=== PATIENT | female | born 1935 | race Caucasian/White ===

== ENCOUNTER 2017-11-25 23:22 | Inpatient (IN) | payer MEDICARE, OTHER ==
--- NOTE | 2017-11-25 23:53 | RADIOLOGY REPORT (SQ) ---
XR CHEST 1 VIEW HISTORY: Shortness of breath. COMPARISON: 08/12/2016 FINDINGS/IMPRESSION: Prominent right hilum is unchanged. Sequela of emphysema with hyperlucent lungs. Atelectasis at lung bases. No focal consolidation. No large pleural effusions. No acute osseous findings.
[2017-11-26 00:02] LABS: VENOUS BLOOD BASE EXCESS -0.1 mmol/L; VENOUS BLOOD HCO3 25.9 mmol/L (20-32); VENOUS BLOOD PCO2 47.8 mmHg (35-63); VENOUS BLOOD PH 7.35 (7.30-7.42)
[2017-11-26 00:06] LABS: ABSOLUTE EOSINOPHILS # (AUTO) 0.1 10^3/uL (0.0-0.6); ABSOLUTE LYMPHOCYTES (AUTO) 0.9 10^3/uL (0.5-4.7); ABSOLUTE MONOCYTES (AUTO) 0.4 10^3/uL (0.1-1.4); ABSOLUTE NEUT (AUTO) 4.6 10^3/uL (1.7-8.2); BASOPHILS % (AUTO) 0.6 % (0-2); EOSINOPHILS % (AUTO) 1.9 % (0-6); HEMATOCRIT 36.6 % (36.0-47.0); HEMOGLOBIN 12.1 g/dL (12.0-15.5); LYMPHOCYTES % (AUTO) 15.2 % (13-45); MEAN CORPUSCULAR HEMOGLOBIN 29.6 pg (27.0-33.4); MEAN CORPUSCULAR VOLUME 90 fl (80-97); MONOCYTES % (AUTO) 6.3 % (3-13); PLATELET COUNT 231 10^3/uL (150-450); RED BLOOD COUNT 4.08 10^6/uL (3.72-5.28); RED CELL DISTRIBUTION WIDTH 14.1 % (11.5-14.0); TOTAL CELLS COUNTED % (AUTO) 100 %; WHITE BLOOD COUNT 6.1 10^3/uL (4.0-10.5)
[2017-11-26] MEDS ORDERED: IPRATROPIUM/ALBUTEROL 0.5-2.5 MG/3 ML AMPUL NEB ONE (00:14)
[2017-11-26] MEDS ORDERED: METHYLPREDNISOLONE INJ 125 MG/2 ML SDV IV ONE (00:14)
--- NOTE | 2017-11-26 00:15 | ER Document Report ---
ED General - General Chief Complaint: Shortness Of Breath Stated Complaint: SHORTNESS OF BREATH Time Seen by Provider: 11/25/17 23:34 Notes: Patient is an 82-year-old female with a past medical history of hypertension, hyperlipidemia, COPD, remote history of lung cancer status post partial pneumonectomy on the right without recurrence of disease or need for chemotherapy who presents with an episode of shortness of breath and diaphoresis that occurred just prior to arrival. At approximately 10 PM the patient became acutely very short of breath, family noted that she appeared to have labored breathing and was visibly diaphoretic. EMS was contacted and the patient was transported to the emergency department. Upon arrival the patient states that she overall feels better but notes that she did not receive any interventions on the EMS transport. She denies a history of similar symptoms in the past. She is uncertain of what improved her symptoms. Nothing worsens her symptoms when present. She denies any associated chest pain, nausea or vomiting. She has not contacted her general doctor regarding today's concerns. TRAVEL OUTSIDE OF THE [place] IN LAST 30 DAYS: No - Related Data Allergies/Adverse Reactions: promethazine HCl [From Phenergan] Allergy (Verified 08/19/14 22:44) Past Medical History - General Information source: Patient, Relative - Social History Smoking Status: Never Smoker Frequency of alcohol use: None Drug Abuse: None Lives with: Family Family History: Reviewed & Not Pertinent, Hypertension - Past Medical History Cardiac Medical History: Reports: Hx Coronary Artery Disease, Hx Hypercholesterolemia, Hx Hypertension Denies: Hx Heart Attack Pulmonary Medical History: Reports: Hx COPD Denies: Hx Asthma, Hx Bronchitis, Hx Pneumonia Neurological Medical History: Denies: Hx Cerebrovascular Accident, Hx Seizures Malignancy Medical History: Reports: Hx Breast Cancer, Hx Lung Cancer GI Medical History: Reports: Hx Hiatal Hernia, Hx Ulcer Musculoskeletal Medical History: Denies Hx Arthritis Psychiatric Medical History: Denies: Hx Depression Past Surgical History: Reports: Hx Abdominal Surgery, Hx Breast Surgery - Left mastectomy for breast cancer, Hx Cardiac Catheterization, Hx Cardiac Surgery - stent 2006, Hx Section, Hx Coronary Stent, Hx Gynecologic Surgery - c- section, Hx Hysterectomy, Hx Mastectomy - Left - Immunizations Hx Diphtheria, Pertussis, Tetanus Vaccination: Yes Review of Systems - Review of Systems Notes: Constitutional: Negative for fever. HENT: Negative for sore throat. Eyes: Negative for visual changes. Cardiovascular: Negative for chest pain. Respiratory: Positive for shortness of breath. Gastrointestinal: Negative for abdominal pain, vomiting or diarrhea. Genitourinary: Negative for dysuria. Musculoskeletal: Negative for back pain. Skin: Negative for rash. Neurological: Negative for headaches, weakness or numbness. 10 point ROS negative except as marked above and in HPI. Physical Exam - Vital signs Vitals: Pulse Ox 91 L 11/25/17 23:26 Interpretation: Hypertensive, Hypoxic Notes: PHYSICAL EXAMINATION: GENERAL: Mild labored breathing but in no distress HEAD: Atraumatic, normocephalic. EYES: Pupils equal round and reactive to light, extraocular movements intact, sclera anicteric, conjunctiva are normal. ENT: nares patent, oropharynx clear without exudates. Moist mucous membranes. NECK: Normal range of motion, supple without lymphadenopathy LUNGS: Mild tachypnea. Breath sounds clear to auscultation bilaterally and equal. No wheezes rales or rhonchi. HEART: Regular rate and rhythm without murmurs ABDOMEN: Soft, nontender, normoactive bowel sounds. No guarding, no rebound. No masses appreciated. EXTREMITIES: Normal range of motion, trace edema present in the right distal lower extremity, no edema in the left. No cyanosis. NEUROLOGICAL: No focal neurological deficits. Moves all extremities spontaneously and on command. PSYCH: Normal mood, normal affect. SKIN: Warm, Dry, normal turgor, no rashes or lesions noted. Course - Re-evaluation Re-evalutation: 11/26/17 00:14 Patient presents with acute onset of shortness of breath, diaphoresis, remains somewhat tachypneic with borderline hypoxemia at 92%. The patient does not have any prominent wheezing on exam although was noted to have a history of emphysema and has emphysematous changes on chest x-ray. No evidence of a pneumonia and clinical history is not consistent with that. IA should not be causing persistent tachypnea or borderline hypoxemia. EKG without ischemic changes although does show bigeminy. Patient has a remote history of lung cancer with partial pneumonectomy on the right lung. My primary concern is for an acute pulmonary embolus. My index of suspicion is high enough that I believe a CTA is required. Will proceed directly with CTA. If this is unremarkable will continue to treat as a possible COPD exacerbation and also obtain a delta troponin to ensure that this is not a cardiac etiology. 11/26/17 01:29 CT of the chest does not show any evidence of an acute pulmonary embolus or concerns of underlying lung disease. Patient has received Solu-Medrol, nebs, states she overall at this time feels well. She is however saturating at 91-92 % on room air. Given her indeterminate range troponin she will require hospitalization for troponin trending and stress testing. 11/26/17 01:[address] Almaguer who is excepted the patient for admission. - Vital Signs Vital signs: Temp Pulse Resp BP Pulse Ox 26 H 204/99 H 93 11/26/17 00:01 11/26/17 00:01 11/26/17 00:01 - Laboratory Result Diagrams: 11/25/17 23:50 11/25/17 23:50 Laboratory results interpreted by me: 11/25/17 11/25/17 11/25/17 23:50 23:50 23:50 RDW 14.1 H Chloride 108 H Creatinine 1.41 H Est GFR ( Amer) 43 L Est GFR (Non-Af Amer) 36 L Glucose 113 H NT-Pro-B Natriuret Pep 39587 H - Diagnostic Test Radiology reviewed: Reports reviewed Discharge - Discharge Clinical Impression: Shortness of breath, Elevated troponin Condition: Fair Disposition: ADMITTED OBSERVATION Admitting Provider: Hospitalist Unit Admitted: Telemetry
[2017-11-26 00:17] LABS: ALANINE AMINOTRANSFERASE 29 U/L (9-52); ALBUMIN 3.9 g/dL (3.5-5.0); ALKALINE PHOSPHATASE 110 U/L (38-126); ANION GAP 11 (5-19); ASPARTATE AMINO TRANSFERASE 28 U/L (14-36); BILIRUBIN,DIRECT 0.2 mg/dL (0.0-0.4); BILIRUBIN,TOTAL 0.2 mg/dL (0.2-1.3); BLOOD UREA NITROGEN 20 mg/dL (7-20); CALCIUM 9.2 mg/dL (8.4-10.2); CARBON DIOXIDE 25 mmol/L (22-30); CHLORIDE 108 mmol/L (98-107); GLUCOSE 113 mg/dL (75-110); POTASSIUM 4.2 mmol/L (3.6-5.0); SODIUM 143.5 mmol/L (137-145); TOTAL PROTEIN 6.6 g/dL (6.3-8.2)
--- NOTE | 2017-11-26 01:26 | RADIOLOGY REPORT (SQ) ---
CT CHEST ANGIOGRAPHY WITHOUT THEN WITH IV CONTRAST HISTORY: Shortness of breath. Evaluate for pulmonary was not. COMPARISON: None. TECHNIQUE: CT scan of the chest. This exam was performed according to our departmental dose-optimization program, which includes automated exposure control, adjustment of the mA and/or kV according to patient size and/or use of iterative reconstruction technique. 3-D MIP images were obtained in coronal and sagittal reconstructions. FINDINGS: No acute pulmonary embolism is seen. No evidence of right heart strain. Enlarged right thyroid lobe containing a 3.2 cm nodule. No mediastinal, hilar, or axillary adenopathy is seen. There is no thoracic aortic dissection or aneurysm. No pericardial effusion. Trace bilateral pleural effusions with adjacent atelectasis. Scattered areas of centrilobular emphysema. The osseous structures are intact. Large hiatal hernia. Multiple bilateral renal cysts are partially visualized. IMPRESSION: 1. No acute pulmonary embolism. 2. Trace bilateral pleural effusions. 3. Centrilobular emphysema. 4. Large hiatal hernia. 5. 3.2 cm incidental thyroid nodule Recommend thyroid US. Reference: J Am Allyn Radiol. 2015 b;12(2): 143-50
[2017-11-26] MEDS ORDERED: MAG HYDROX/AL HYDROX/SIMETH SUSP 30 ML UDCUP PO PRN (01:35)
[2017-11-26] MEDS ORDERED: NITROGLYCERIN 5 MG (0.2 MG/HR) PATCH.TD24 TD ONE (02:00)
[2017-11-26] MEDS ORDERED: FUROSEMIDE INJ/PF 40 MG/4 ML SDV IV ONE (02:00)
[2017-11-26] MEDS ORDERED: LISINOPRIL 10 MG TABLET PO ONE (02:00)
[2017-11-26] MEDS: HYDRALAZINE HCL INJ/PF 20 MG/1 ML SDV IV PRN ×2 (02:46→15:44)
[2017-11-26] MEDS: HEPARIN SOD (PORCINE) 5,000 UNIT/ML 1 ML SYRINGE SUBCUT SCH ×3 (05:35→22:29)
--- NOTE | 2017-11-26 06:40 | PDOC H&P ---
History of Present Illness Admission Date/PCP: 11/26/17 01:47 GUY WONG MD Patient complains of: Shortness of breath History of Present Illness: BERNABE DORMAN is a 82 year old female with a past medical history of hypertension, dyslipidemia, COPD and a remote history of lung cancer status post partial right pneumonectomy. Presents with shortness of breath and a blood pressure of 218/100, CT of the chest, cardiac enzymes are unremarkable but BNP is almost 13,000. She receives Solu-Medrol, albuterol and Atrovent and referred to the hospitalist for admission. Patient admits orthopnea and dyspnea on exertion, denies heat or cold intolerance, chest pain, recent change of diet nor missing medications but admits to chronic poorly controlled blood pressure. Past Medical History Cardiac Medical History: Reports: Congestive Heart Failure, Coronary Artery Disease, Hyperlipidema, Hypertension Denies: Myocardial Infarction Pulmonary Medical History: Reports: Chronic Obstructive Pulmonary Disease (COPD) Denies: Asthma, Bronchitis, Pneumonia Neurological Medical History: Denies: Seizures Malignancy Medical History: Reports: Breast Cancer, Lung Cancer GI Medical History: Reports: Hiatal Hernia Musculoskeltal Medical History: Denies: Arthritis Psychiatric Medical History: Denies: Depression Hematology: Reports: Anemia Past Surgical History Past Surgical History: Reports: Cardiac Catheterization, Section, Coronary Stent, Hysterectomy, Mastectomy - Left Social History Information Source: Patient Lives with: Family Smoking Status: Unknown if Ever Smoked Frequency of Alcohol Use: None Hx Recreational Drug Use: No Drugs: None Hx Prescription Drug Abuse: No - Advance Directive Resuscitation Status: Full Code Family History Family History: Reviewed & Not Pertinent, Hypertension Parental Family History Reviewed: Yes Children Family History Reviewed: Yes Sibling(s) Family History Reviewed.: Yes Medication/Allergy Home Medications: Acetaminophen with Codeine [Tylenol #3 Tablet] 1 each PO BID 08/20/14 Acidoph/L.bulg/Bif.b/S.thermop [Bacid Caplet] 2 each PO BID 60 Days tablet Ciprofloxacin HCl [Cipro 500 mg Tablet] 500 mg PO BID #20 tablet 08/20/14 Ferrous Sulfate [Iron] 325 mg PO DAILY 08/20/14 Isosorbide Mononitrate [Imdur 60 mg Tablet.er] 60 mg PO DAILY 08/20/14 Lisinopril 40 mg PO BID 08/20/14 Metoprolol Succinate [Toprol Xl] 50 mg PO QHS 08/20/14 Pantoprazole Sodium [Protonix] 40 mg PO DAILY 08/20/14 Potassium Gluconate 500 mg PO DAILY 08/20/14 Ranitidine HCl [Zantac] 300 mg PO QHS 08/20/14 Simvastatin [Zocor 40 mg Tablet] 40 mg PO QHS 08/20/14 Temazepam [Restoril] 30 mg PO QHS 08/20/14 Allergies/Adverse Reactions: promethazine HCl [From Phenergan] Allergy (Verified 08/19/14 22:44) Review of Systems Constitutional: PRESENT: as per HPI. ABSENT: fever(s), headache(s), night sweats, weakness Eyes: ABSENT: visual disturbances Ears: ABSENT: hearing changes Cardiovascular: PRESENT: as per HPI, dyspnea on exertion, orthropnea. ABSENT: chest pain, edema Physical Exam Vital Signs: Temp Pulse Resp BP Pulse Ox 97.6 F 80 20 182/81 H 92 11/26/17 03:49 11/26/17 03:49 11/26/17 03:49 11/26/17 03:49 11/26/17 03:49 Intake & Output 11/24/17 11/25/17 11/26/17 11:59 11:59 11:59 Weight 73.5 kg General appearance: PRESENT: cooperative, severe distress. ABSENT: morbidly obese Head exam: PRESENT: atraumatic, normocephalic Eye exam: PRESENT: conjunctiva pink, EOMI, PERRLA. ABSENT: scleral icterus Ear exam: PRESENT: normal external ear exam Mouth exam: PRESENT: moist, tongue midline Neck exam: ABSENT: carotid bruit, JVD, lymphadenopathy, thyromegaly Respiratory exam: PRESENT: accessory muscle use, crackles, prolonged expiratory phas, tachypnea, wheezes Cardiovascular exam: PRESENT: gallop, +S1, +S2, systolic murmur Pulses: PRESENT: normal dorsalis pedis pul Vascular exam: PRESENT: normal capillary refill GI/Abdominal exam: PRESENT: normal bowel sounds, soft. ABSENT: distended, guarding, mass, organolmegaly, rebound, tenderness Rectal exam: PRESENT: deferred Extremities exam: PRESENT: full ROM. ABSENT: calf tenderness, clubbing, pedal edema Neurological exam: PRESENT: alert, awake, oriented to person, oriented to place , oriented to time, oriented to situation, CN II-XII grossly intact. ABSENT: motor sensory deficit Psychiatric exam: PRESENT: appropriate affect, normal mood. ABSENT: homicidal ideation, suicidal ideation Skin exam: PRESENT: dry, intact, warm. ABSENT: cyanosis, rash Results Impressions: Chest X-Ray 11/25/17 23:35 FINDINGS/IMPRESSION: Prominent right hilum is unchanged. Sequela of emphysema with hyperlucent lungs. Atelectasis at lung bases. No focal consolidation. No large pleural effusions. No acute osseous findings. Chest/Abdomen CTA 11/26/17 00:14 IMPRESSION: 1. No acute pulmonary embolism. 2. Trace bilateral pleural effusions. 3. Centrilobular emphysema. 4. Large hiatal hernia. 5. 3.2 cm incidental thyroid nodule Recommend thyroid US. Reference: J Am Allyn Radiol. 2015 Apr;12(2): 143-50 Assessment & Plan - Diagnosis (1) Hypertensive emergency Is this a current diagnosis for this admission?: Yes Plan: IV diuretic, nitroglycerin, MIKE inhibitor, hydralazine as needed (2) Diastolic heart failure Is this a current diagnosis for this admission?: Yes Plan: Strongly suggested by presentation, unclear chronicity, obtain recent echocardiogram from [facility] at [place]. Control hypertension, gentle diuresis, supplemental oxygen (3) Shortness of breath Is this a current diagnosis for this admission?: Yes Plan: Secondary to #1. - Time Time Spent: 50 to 70 Minutes - Inpatient Certification Medical Necessity: Need Close Monitoring Due to Risk of Patient Decompensation
[2017-11-26 07:20] LABS: TROPONIN I 0.068 ng/mL
[2017-11-26 07:24] LABS: FREE T3 4.42 pg/mL (2.77-5.27); FREE T4 (FREE THYROXINE) 1.14 ng/dL (0.78-2.19)
[2017-11-26 07:33] LABS: CREATINE KINASE MB 0.8 ng/mL (<4.55)
[2017-11-26 07:38] LABS: THYROID STIMULATING HORMONE 1.5 uIU/mL (0.47-4.68)
[2017-11-26 07:50] LABS: ANION GAP 15 (5-19); BLOOD UREA NITROGEN 19 mg/dL (7-20); CALCIUM 9.3 mg/dL (8.4-10.2); CARBON DIOXIDE 22 mmol/L (22-30); CHLORIDE 106 mmol/L (98-107); CREATINE KINASE 25 U/L (30-135); GLUCOSE 136 mg/dL (75-110); POTASSIUM 3.8 mmol/L (3.6-5.0); SODIUM 143.3 mmol/L (137-145)
--- NOTE | 2017-11-26 08:08 | EKG REPORT ---
SEVERITY:- ABNORMAL ECG - SINUS RHYTHM VENTRICULAR BIGEMINY RIGHT BUNDLE BRANCH BLOCK LEFT VENTRICULAR HYPERTROPHY : Confirmed by: Scotty Augustin MD 26-Nov-2017 08:08:11
[2017-11-26] MEDS: FUROSEMIDE INJ/PF 40 MG/4 ML SDV IV SCH (09:10)
[2017-11-26] MEDS: NITROGLYCERIN 5 MG (0.2 MG/HR) PATCH.TD24 TD SCH (09:11)
[2017-11-26] MEDS: ACETAMINOPHEN 325 MG TABLET PO PRN (09:11)
[2017-11-26] MEDS: LISINOPRIL 10 MG TABLET PO SCH ×2 (09:11→17:14)
--- NOTE | 2017-11-26 11:16 | Progress Note ---
Provider Note Provider Note: This is a 82-year-old female with history of poorly controlled hypertension presented with shortness of breath and found to have hypertensive urgency with CHF. Patient has been started on IV diuretics as well as IV hydralazine as needed. Will follow up 2D echocardiogram. Patient's home medication has been resumed. Patient reports significant improvement in shortness of breath. Her most recent blood pressure is 158/76 with heart rate of 77. Patient will be continued on telemetry.
[2017-11-26 12:28] LABS: CREATINE KINASE MB 0.88 ng/mL (<4.55); TROPONIN I 0.039 ng/mL
[2017-11-26] MEDS ORDERED: (PENDING PHARMACY ID) (Carbamazepine [Carbamazepine Er] 200 MG) PO SCH (14:00)
[2017-11-26] MEDS: CARBAMAZEPINE 200 MG TAB.SR.12H PO SCH ×2 (14:59→22:29)
[2017-11-26] MEDS: SUCRALFATE 1 GM TABLET PO SCH ×2 (15:03→21:51)
[2017-11-26] MEDS ORDERED: TRAMADOL HCL 50 MG TABLET PO ONE (18:00)
[2017-11-26 18:20] LABS: CREATINE KINASE MB 0.78 ng/mL (<4.55); TROPONIN I 0.032 ng/mL
[2017-11-26] MEDS ORDERED: TRAZODONE HCL 50 MG TABLET PO PRN (20:08)
[2017-11-26] MEDS ORDERED: METOPROLOL SUCCINATE 50 MG TAB.SR.24H PO SCH (22:00)
[2017-11-26] MEDS: SIMVASTATIN 40 MG TABLET PO SCH (22:29)
[2017-11-27] MEDS: ACETAMINOPHEN 325 MG TABLET PO PRN (03:53)
[2017-11-27] MEDS: HYDRALAZINE HCL INJ/PF 20 MG/1 ML SDV IV PRN (03:53)
[2017-11-27] MEDS: HEPARIN SOD (PORCINE) 5,000 UNIT/ML 1 ML SYRINGE SUBCUT SCH ×3 (06:32→21:43)
[2017-11-27] MEDS: LANSOPRAZOLE 30 MG TAB.RAP.DR PO SCH (06:33)
[2017-11-27] MEDS: CARBAMAZEPINE 200 MG TAB.SR.12H PO SCH ×3 (06:33→22:54)
[2017-11-27] MEDS: SUCRALFATE 1 GM TABLET PO SCH ×4 (07:33→21:42)
[2017-11-27] MEDS: FUROSEMIDE INJ/PF 40 MG/4 ML SDV IV SCH (09:27)
[2017-11-27] MEDS: NIFEDIPINE 30 MG TAB.ER.24 PO SCH (09:29)
[2017-11-27] MEDS: LISINOPRIL 10 MG TABLET PO SCH ×2 (09:29→17:03)
[2017-11-27] MEDS: NITROGLYCERIN 5 MG (0.2 MG/HR) PATCH.TD24 TD SCH (09:33)
[2017-11-27] MEDS ORDERED: HYDROCODONE/ACETAMINOPHEN 5-325 MG TABLET PO PRN (09:52)
[2017-11-27] MEDS ORDERED: (PENDING PHARMACY ID) (Nifedipine [Nifedipine Er] 90 MG) PO SCH (10:00)
--- NOTE | 2017-11-27 11:16 | PDOC PROGRESS REPORT ---
Subjective Progress Note for:: 11/27/17 Subjective:: The patient is complaining of a headache and nausea. She states that these have begun since she was started on Nitropatch. Reason For Visit: HTN EMERGENCY DIASTOLIC HEART FAILURE Physical Exam Vital Signs: Temp Pulse Resp BP Pulse Ox 98.1 F 82 17 128/85 H 95 11/27/17 07:34 11/27/17 07:34 11/27/17 07:34 11/27/17 07:34 11/27/17 07:34 Intake & Output 11/26/17 11/27/17 11/28/17 06:59 06:59 06:59 Intake Total 540 Output Total 900 Balance -360 Weight 73.5 kg 71.3 kg General appearance: PRESENT: no acute distress, cooperative Neck exam: PRESENT: other - 4/5 cardiac MARIANNA murmur radiates to carotids bilaterally.. ABSENT: carotid bruit, JVD, lymphadenopathy, tracheal deviation Respiratory exam: PRESENT: other - No increased work of breathing.. ABSENT: rales, rhonchi, wheezes Cardiovascular exam: PRESENT: systolic murmur - 4/5 blowing quality systolic murmur best heard at the left lsb wth radiation to carotics bila Pulses: PRESENT: normal femoral pulses, normal dorsalis pedis pul GI/Abdominal exam: PRESENT: soft. ABSENT: distended, guarding, hernia, mass, tenderness Rectal exam: PRESENT: deferred Extremities exam: ABSENT: clubbing, joint swelling, pedal edema, tenderness Musculoskeletal exam: PRESENT: dislocation. ABSENT: deformity, normal inspection Neurological exam: PRESENT: alert, awake, oriented to person, oriented to place , oriented to time, oriented to situation, CN II-XII grossly intact. ABSENT: motor sensory deficit Psychiatric exam: PRESENT: appropriate affect, normal mood Focused psych exam: PRESENT: delusional Skin exam: PRESENT: dry, intact, warm Results Laboratory Results: 11/26/17 05:36 11/26/17 11/26/17 11/26/17 05:36 05:36 11:47 Creatine Kinase 25 L 24 L CK-MB (CK-2) 0.80 Troponin I 0.068 11/26/17 11/26/17 11/26/17 11:47 16:45 16:45 Creatine Kinase 45 CK-MB (CK-2) 0.88 0.78 Troponin I 0.039 0.032 Impressions: Chest X-Ray 11/25/17 23:35 FINDINGS/IMPRESSION: Prominent right hilum is unchanged. Sequela of emphysema with hyperlucent lungs. Atelectasis at lung bases. No focal consolidation. No large pleural effusions. No acute osseous findings. Chest/Abdomen CTA 11/26/17 00:14 IMPRESSION: 1. No acute pulmonary embolism. 2. Trace bilateral pleural effusions. 3. Centrilobular emphysema. 4. Large hiatal hernia. 5. 3.2 cm incidental thyroid nodule Recommend thyroid US. Reference: J Am Allyn Radiol. 2015 Apr;12(2): 143-50 Assessment & Plan - Diagnosis (1) Elevated troponin Is this a current diagnosis for this admission?: Yes Plan: Due to elevated creatinine and blood pressure. Cardiology consulted. (2) Hypertensive emergency Is this a current diagnosis for this admission?: Yes Plan: With pulmonary edema and chest pain. (3) Shortness of breath Is this a current diagnosis for this admission?: Yes (4) CAD (coronary artery disease) Qualifiers: Coronary Disease-Associated Artery/Lesion type: [place] artery [place] vs. transplanted heart: [place] heart Associated angina: with unstable angina Qualified Code(s): I25.110 - Atherosclerotic heart disease of [place] coronary artery with unstable angina pectoris Is this a current diagnosis for this admission?: Yes (5) COPD (chronic obstructive pulmonary disease) Qualifiers: COPD type: unspecified COPD Qualified Code(s): J44.9 - Chronic obstructive pulmonary disease, unspecified Is this a current diagnosis for this admission?: Yes (6) HTN (hypertension) Qualifiers: Hypertension type: essential hypertension Qualified Code(s): I10 - Essential (primary) hypertension Is this a current diagnosis for this admission?: Yes Plan: Uncontrolled with headache and pulmonary edema and respiratory distress. (7) Headache Qualifiers: Headache type: other drug induced headache Is this a current diagnosis for this admission?: Yes Plan: stop nitropaste. Change to Imdur. Ice and pain control. (8) Congestive heart failure Qualifiers: Heart failure type: unspecified Heart failure chronicity: acute Qualified Code(s): I50.9 - Heart failure, unspecified Is this a current diagnosis for this admission?: Yes Plan: Will check echocardiogram. Cardiology consulted. (9) MEHDI (acute kidney injury) Is this a current diagnosis for this admission?: Yes Plan: Due to elevated blood pressure. (10) Heart murmur, aortic Is this a current diagnosis for this admission?: Yes Plan: with radiation to carotids bilaterally. Echocardiogram ordered. - Time Time Spent with patient: 35 or more minutes Medications reviewed and adjusted accordingly: Yes
[2017-11-27] MEDS: ISOSORBIDE MONONITRATE 30 MG TAB.ER.24H PO SCH (11:18)
--- NOTE | 2017-11-27 19:56 | PDOC CONSULTATION ---
Consultation Consult Date: 11/27/17 Attending physician:: DONOVAN GOMEZ Consult reason:: Labile hypertension History of Present Illness Admission Date/PCP: 11/26/17 01:47 GUY WONG MD Patient complains of: Shortness of breath History of Present Illness: BERNABE DORMAN is a 82 year old female with a past medical history of hypertension, dyslipidemia, COPD and a remote history of lung cancer status post partial right pneumonectomy. Presents with shortness of breath and a blood pressure of 218/100, CT of the chest, cardiac enzymes are unremarkable but BNP is almost 13,000. She receives Solu-Medrol, albuterol and Atrovent and referred to the hospitalist for admission. Patient admits orthopnea and dyspnea on exertion, denies heat or cold intolerance, chest pain, recent change of diet nor missing medications but admits to chronic poorly controlled blood pressure. Patient claims that a few months ago she was evaluated by her environmental research scientist Dr. Sewell at [facility] and was told to have no significant heart issues and did not give her a follow-up. She was admitted with shortness of breath and was noted to have extremely elevated blood pressure. Past Medical History Cardiac Medical History: Reports: Congestive Heart Failure, Coronary Artery Disease, Hyperlipidema, Hypertension Denies: Myocardial Infarction Pulmonary Medical History: Reports: Chronic Obstructive Pulmonary Disease (COPD) Denies: Asthma, Bronchitis, Pneumonia Neurological Medical History: Denies: Seizures Malignancy Medical History: Reports: Breast Cancer, Lung Cancer GI Medical History: Reports: Hiatal Hernia Musculoskeltal Medical History: Denies: Arthritis Psychiatric Medical History: Denies: Depression Hematology: Reports: Anemia Past Surgical History Past Surgical History: Reports: Cardiac Catheterization, Section, Coronary Stent, Hysterectomy, Mastectomy - Left Social History Information Source: Patient Lives with: Family Smoking Status: Unknown if Ever Smoked Frequency of Alcohol Use: None Hx Recreational Drug Use: No Drugs: None Hx Prescription Drug Abuse: No - Advance Directive Resuscitation Status: Full Code Family History Family History: Hypertension Parental Family History Reviewed: Yes Children Family History Reviewed: Yes Sibling(s) Family History Reviewed.: Yes Medication/Allergy Home Medications: Carbamazepine [Carbamazepine ER] 200 mg PO QAM 11/26/17 Carbamazepine [Carbamazepine ER] 400 mg PO QPM 11/26/17 Cyanocobalamin (Vitamin B-12) [Vitamin B-12 1000 mcg Tablet] 1,000 mcg PO DAILY 11/26/17 Donepezil HCl [Aricept 5 mg Tablet] 5 mg PO DAILY 11/26/17 Lisinopril [Prinivil 40 mg Tablet] 40 mg PO Q12 11/26/17 Metoprolol Succinate [Toprol Xl 50 mg Tab.sr] 50 mg PO QHS 11/26/17 Nifedipine [Nifedipine ER] 90 mg PO DAILY 11/26/17 Pantoprazole Sodium [Protonix] 40 mg PO DAILY 11/26/17 Primidone [Mysoline 50 mg Tablet] 50 mg PO BID@0800,1200 11/26/17 Primidone [Mysoline 50 mg Tablet] 100 mg PO QPM 11/26/17 Ranitidine HCl [Zantac] 300 mg PO QHS 11/26/17 Simvastatin [Zocor 40 mg Tablet] 40 mg PO QHS 11/26/17 Sucralfate [Carafate 1 gm Tablet] 1 gm PO MEALSHS 11/26/17 Allergies/Adverse Reactions: promethazine HCl [From Phenergan] Allergy (Verified 08/19/14 22:44) Review of Systems Review of Systems: Please see history of present illness and past medical history as wall. Constitutional: No fever or chills reported. Head : No recent chronic headaches, recent head injury. Eyes: No recent eye pain, diplopia, redness, discharge, acute visual changes. Ears: No recent chronic ear pain, acute hearing loss, ear discharge. Oral cavity: No recent ulcerations, bleeding, oral cavity discomfort. Neck: No recent acute neck pain reported. Hematologic: No recent easy bruising or bleeding. Lymphatic: No recent lymph node enlargement reported. Cardiovascular system review: See history of present illness. Respiratory system review: No hemoptysis or blood clots in the lungs reported. Mild Shortness of breath on exertion Gastrointestinal system review: Negative for any recent acute hematemesis, melena. Genitourinary system review: No recent acute or chronic hematuria, flank pain, UTI etc. reported. Skin system review: Negative for any recent abnormal bruising, no rash, no pruritus reported. Neurologic: No prior history of strokes, mini strokes, seizure disorder. Psychologic: No history of major psychosis or major depression reported. Musculoskeletal: Minor aches and pains reported. No acute joint swelling reported. Endocrine: No recent polyuria, polydipsia, recent heat or cold intolerance. Physical Exam Vital Signs: Temp Pulse Resp BP Pulse Ox 98.9 F 79 16 161/69 H 97 11/27/17 15:29 11/27/17 15:29 11/27/17 15:29 11/27/17 15:29 11/27/17 15:29 Intake & Output 11/26/17 11/27/17 11/28/17 06:59 06:59 06:59 Intake Total 540 500 Output Total 900 900 Balance -360 -400 Weight 73.5 kg 71.3 kg Exam: GENERAL: well-nourished and in no acute distress. Alert and oriented x3 HEAD: Atraumatic, normocephalic. EYES: Pupils equal round and reactive to light, extraocular movements intact, sclera anicteric, conjunctiva are normal. ENT: TMs normal, nares patent, oropharynx clear without exudates. Moist mucous membranes. No oral ulcerations or bleeding gums noted NECK: supple without lymphadenopathy. Trachea is central. No cervical or axillary lymphadenopathy noted. Carotids are 2+, JVD 8-10 cm LUNGS: Respiration seems nonlabored, no significant accessory muscle action noted. Bibasilar fine crackles are noted. No wheezes rales or rhonchi noted. No significant dullness noted on percussion. CHEST: Palpation of the chest wall shows no significant chest wall tenderness. HEART: [place] EDUCATION RN, No PSH, 1/6 MARIANNA aortic area, 3/6 bal[place] systolic murmur mitral area, no rubs, no gallops. ABDOMEN: Soft, no significant tenderness appreciated, normoactive bowel sounds. No guarding, no rebound. No rigidity noted . No masses appreciated. EXTREMITIES: Pedal pulses are 1-2+, no calf tenderness noted. No clubbing or cyanosis. negative pedal edema noted NEUROLOGICAL: Focused neurological exam showed no significant neurologic deficit. Normal speech, no focal weakness appreciated. PSYCH: Normal mood, normal affect. Judgment and insight within normal limits. SKIN: No significant ecchymosis, skin is noted to be warm. MUSCULOSKELETAL EXAM: No significant acute joint swelling noted. Results Laboratory Results: 11/26/17 05:36 11/26/17 11/26/17 11/26/17 05:36 05:36 11:47 Creatine Kinase 25 L 24 L CK-MB (CK-2) 0.80 Troponin I 0.068 11/26/17 11/26/17 11/26/17 11:47 16:45 16:45 Creatine Kinase 45 CK-MB (CK-2) 0.88 0.78 Troponin I 0.039 0.032 EKG Comments: Sinus rhythm with frequent PVCs and possible LVH. Impressions: Chest X-Ray 11/25/17 23:35 FINDINGS/IMPRESSION: Prominent right hilum is unchanged. Sequela of emphysema with hyperlucent lungs. Atelectasis at lung bases. No focal consolidation. No large pleural effusions. No acute osseous findings. Chest/Abdomen CTA 11/26/17 00:14 IMPRESSION: 1. No acute pulmonary embolism. 2. Trace bilateral pleural effusions. 3. Centrilobular emphysema. 4. Large hiatal hernia. 5. 3.2 cm incidental thyroid nodule Recommend thyroid US. Reference: J Am Allyn Radiol. 2014;12(2): 143-50 Assessment & Plan - Diagnosis (1) Congestive heart failure Qualifiers: Heart failure type: unspecified Heart failure chronicity: acute Qualified Code(s): I50.9 - Heart failure, unspecified Is this a current diagnosis for this admission?: Yes (2) Hypertensive emergency Is this a current diagnosis for this admission?: Yes (3) CAD (coronary artery disease) Qualifiers: Coronary Disease-Associated Artery/Lesion type: [place] artery [place] vs. transplanted heart: [place] heart Associated angina: with unstable angina Qualified Code(s): I25.110 - Atherosclerotic heart disease of [place] coronary artery with unstable angina pectoris Is this a current diagnosis for this admission?: Yes (4) COPD (chronic obstructive pulmonary disease) Qualifiers: COPD type: unspecified COPD Qualified Code(s): J44.9 - Chronic obstructive pulmonary disease, unspecified Is this a current diagnosis for this admission?: Yes (5) HTN (hypertension) Qualifiers: Hypertension type: essential hypertension Qualified Code(s): I10 - Essential (primary) hypertension Is this a current diagnosis for this admission?: Yes (6) Hyperlipidemia Qualifiers: Hyperlipidemia type: unspecified Qualified Code(s): E78.5 - Hyperlipidemia , unspecified Is this a current diagnosis for this admission?: Yes (7) Valvular heart disease Is this a current diagnosis for this admission?: Yes (8) Elevated troponin Is this a current diagnosis for this admission?: Yes - Notes Notes: Congestive heart failure: Possibly related to diastolic dysfunction, combined systolic and diastolic dysfunction, valvular heart disease etc. patient also may have severe hypertension precipitating this. At this time agree with diuretic therapy. A 2D echo has been ordered. Further adjustment of therapy will be made on the basis of 2D echocardiogram. Hypertensive emergency: Patient claims history of labile blood pressure. Will consider evaluating her for renal artery stenosis. CAD: Patient gives history of CAD. Will schedule patient for a nuclear stress test especially since her troponin I are also noted to be abnormal. This amount of troponin I elevation could well be from CHF. COPD: Currently stable continue current management plans. Hypertension: This has been difficult to control. Will try control blood pressure during this hospitalization. Valvular heart disease: Patient felt to have possibly significant mitral regurgitation. Further evaluation by 2D echocardiogram, 2D echocardiogram is pending. Elevated troponin I: Possibly related to severe hypertension, CHF. Patient however also being scheduled for a nuclear stress test. - Time Time Spent: 30 to 50 Minutes - More than 50% of the time spent coordinating care , discussing management plans with involved caregivers. Management plans discussed with involved personnels. Medical decision making was of moderate to high complexity, patient's has multiple comorbidities. Medications reviewed and adjusted accordingly: Yes
[2017-11-27] MEDS: SIMVASTATIN 40 MG TABLET PO SCH (22:55)
[2017-11-27] MEDS: METOPROLOL SUCCINATE 50 MG TAB.SR.24H PO SCH (22:56)
[2017-11-28] MEDS: CARBAMAZEPINE 200 MG TAB.SR.12H PO SCH ×3 (05:37→17:23)
[2017-11-28] MEDS: LANSOPRAZOLE 30 MG TAB.RAP.DR PO SCH (05:37)
[2017-11-28] MEDS: HEPARIN SOD (PORCINE) 5,000 UNIT/ML 1 ML SYRINGE SUBCUT SCH ×3 (05:41→21:13)
[2017-11-28 06:33] LABS: ABSOLUTE EOSINOPHILS # (AUTO) 0.2 10^3/uL (0.0-0.6); ABSOLUTE LYMPHOCYTES (AUTO) 1.3 10^3/uL (0.5-4.7); ABSOLUTE MONOCYTES (AUTO) 0.6 10^3/uL (0.1-1.4); ABSOLUTE NEUT (AUTO) 3.6 10^3/uL (1.7-8.2); BASOPHILS % (AUTO) 0.4 % (0-2); EOSINOPHILS % (AUTO) 3.3 % (0-6); HEMATOCRIT 35.4 % (36.0-47.0); HEMOGLOBIN 11.8 g/dL (12.0-15.5); LYMPHOCYTES % (AUTO) 22.5 % (13-45); MEAN CORPUSCULAR HEMOGLOBIN 29.4 pg (27.0-33.4); MEAN CORPUSCULAR HGB CONC 33.3 g/dL (32.0-36.0); MEAN CORPUSCULAR VOLUME 88 fl (80-97); MONOCYTES % (AUTO) 9.7 % (3-13); PLATELET COUNT 241 10^3/uL (150-450); RED CELL DISTRIBUTION WIDTH 13.8 % (11.5-14.0); SEGMENTED NEUTROPHILS % (AUTO) 64.1 % (42-78); TOTAL CELLS COUNTED % (AUTO) 100 %; WHITE BLOOD COUNT 5.7 10^3/uL (4.0-10.5)
[2017-11-28 06:45] LABS: ALANINE AMINOTRANSFERASE 24 U/L (9-52); ALBUMIN 3.6 g/dL (3.5-5.0); ALKALINE PHOSPHATASE 98 U/L (38-126); ANION GAP 9 (5-19); ASPARTATE AMINO TRANSFERASE 17 U/L (14-36); BILIRUBIN,DIRECT 0.3 mg/dL (0.0-0.4); BILIRUBIN,TOTAL 0.4 mg/dL (0.2-1.3); BLOOD UREA NITROGEN 19 mg/dL (7-20); CALCIUM 9.4 mg/dL (8.4-10.2); CARBON DIOXIDE 29 mmol/L (22-30); CHLORIDE 102 mmol/L (98-107); GLUCOSE 99 mg/dL (75-110); POTASSIUM 4.4 mmol/L (3.6-5.0); SODIUM 139.5 mmol/L (137-145); TOTAL PROTEIN 6.1 g/dL (6.3-8.2)
[2017-11-28] MEDS: SUCRALFATE 1 GM TABLET PO SCH ×4 (08:00→21:15)
[2017-11-28] MEDS: ISOSORBIDE MONONITRATE 30 MG TAB.ER.24H PO SCH (11:02)
[2017-11-28] MEDS: LISINOPRIL 10 MG TABLET PO SCH ×3 (11:02→21:16)
[2017-11-28] MEDS: NIFEDIPINE 30 MG TAB.ER.24 PO SCH (11:02)
[2017-11-28] MEDS: FUROSEMIDE INJ/PF 40 MG/4 ML SDV IV SCH (11:03)
--- NOTE | 2017-11-28 13:13 | DRAGON STRESS TEST REPORT ---
INTRAVENOUS LEXISCAN CARDIOLITE STRESS TEST USING SINGLE PHOTON EMMISION COMPUTERIZED TOMOGRAPHIC. DATE OF PROCEDURE: November 28, 2017, INDICATION : Shortness of breath CARDIAC RISK FACTORS: Hypertension, dyslipidemia RESTING EKG: Sinus rhythm, right bundle branch block pattern, possible LVH with some secondary ST-T wave changes both due to LVH and RBBB STRESS EKG: No significant ST segment changes noted with LexiScan bolus REASON FOR TERMINATION: Protocol. PROCEDURE REPORT: Baseline heart rate 72 beats per minute with blood pressure of 148/67. Patient had no significant complaints. Patient was bolused with Lexiscan 0.4 mg intravenously followed by saline bolus. Heart rate at 2 minutes post bolus 87 with a blood pressure of 148/64. 3 minutes post bolus heart rate 85 with blood pressure of 154/65. No significant EKG changes were noted. Patient had no significant complaints during the procedure or postprocedure. CONCLUSIONS: Normal EKG and hemodynamic response to IV LexiScan. NUCLEAR DATA: At rest the patient was given 10.25 millicuries of technetium 99 sestamibi injected intravenously. As per protocol rest gated SPECT images were obtained. On day of stress test, the patient was given intravenous LexiScan at a dose of 0.4 mg in 5 mL intravenously, followed by flush with normal saline. Subsequently the stress dose of 30.9 millicuries of technetium 99 sestamibi was injected intravenously. As per protocol stress gated images were obtained. NUCLEAR INTERPRETATION: Both raw and processed data were used for interpretation. Visual, qualitative, computer-generated quantitative data was used. There was good myocardial uptake of technetium compound. Motion artifact and soft tissue attenuations were noted. Increased visceral uptake was noted. No definitive areas of transient perfusion defect noted, except for mild decreased uptake in the inferior wall consistent with probable mild ischemia, SDS is 1 therefore felt to be relatively low risk, No definitive areas of fixed perfusion defect or scars noted. EKG gated imaging showed LV EF at 48 %, rest and stress gated EF similar visually. T. I D. ratio was 1.10. Lung heart ratio noted to be within normal limits 0.26. No significant extracardiac and abnormal radiotracer activities were noted. RV free wall uptake was noted to be WNL. IMPRESSION: Also refer to comments under nuclear interpretation. Also test results needs to be interpreted in the context of pretest probability. 1. Probable mild ischemia mid inferior wall, SDS score is 1 therefore felt to be relatively low risk. 2. There is no definitive scintigraphic evidence of myocardial infarction/scar. 3. EKG gated imaging shows left ventricular ejection fraction of approx. 48 %. 4. Clinical correlation requested as occasionally worse disease or balanced ischemia could be missed. In approximately 10% of the cases Lexiscan may not cause adequate vasodilatory stress. RECOMMENDATIONS: Aggressive risk factor modification and medical management. Further evaluation may be needed if continued symptoms or other high risk indicators are noted on clinical evaluation. Close cardiology follow-up is also recommended. Clinical correlation with echocardiogram derived ejection fraction. Inability to exercise by itself can lead to increased cardiovascular event risks. Consider cardiology consultation and or follow-up if clinically indicated. I am available for cardiology evaluation and consultation if requested by the customer consulting manager, unless patient already has a twine winder. Dr. Jackie Malloy. MRCP Board certified in cardiology and sleep medicine. Board certified in nuclear cardiology, adult echocardiography. ELIJAH
--- NOTE | 2017-11-28 13:53 | PDOC PROGRESS REPORT ---
Subjective Progress Note for:: 11/28/17 Subjective:: The patient is without new complaints. Reason For Visit: HTN EMERGENCY DIASTOLIC HEART FAILURE Physical Exam Vital Signs: Temp Pulse Resp BP Pulse Ox 98.1 F 71 18 143/62 H 98 11/28/17 11:25 11/28/17 11:25 11/28/17 11:25 11/28/17 11:25 11/28/17 11:25 Intake & Output 11/27/17 11/28/17 11/29/17 06:59 06:59 06:59 Intake Total 540 700 0 Output Total 900 1050 200 Balance -360 -350 -200 Weight 71.3 kg 72.6 kg General appearance: PRESENT: no acute distress, cooperative Respiratory exam: PRESENT: other - No increased work of breathing.. ABSENT: rales, rhonchi, wheezes Cardiovascular exam: PRESENT: RRR. ABSENT: gallop, rubs, systolic murmur Pulses: PRESENT: normal carotid pulses, normal dorsalis pedis pul GI/Abdominal exam: PRESENT: normal bowel sounds, soft. ABSENT: distended, hernia, mass, organolmegaly, tenderness Extremities exam: PRESENT: clubbing. ABSENT: pedal edema, tenderness Musculoskeletal exam: PRESENT: normal inspection. ABSENT: deformity, dislocation, tenderness Neurological exam: PRESENT: alert, awake, oriented to person, oriented to place , oriented to time, oriented to situation, CN II-XII grossly intact. ABSENT: motor sensory deficit Psychiatric exam: PRESENT: appropriate affect, normal mood Skin exam: PRESENT: dry, intact, warm Results Laboratory Results: 11/28/17 06:11 11/28/17 06:11 11/28/17 11/28/17 06:11 06:11 WBC 5.7 RBC 4.00 Hgb 11.8 L Hct 35.4 L MCV 88 MCH 29.4 MCHC 33.3 RDW 13.8 Plt Count 241 Seg Neutrophils % 64.1 Lymphocytes % 22.5 Monocytes % 9.7 Eosinophils % 3.3 Basophils % 0.4 Absolute Neutrophils 3.6 Absolute Lymphocytes 1.3 Absolute Monocytes 0.6 Absolute Eosinophils 0.2 Absolute Basophils 0.0 Sodium 139.5 Potassium 4.4 Chloride 102 Carbon Dioxide 29 Anion Gap 9 BUN 19 Creatinine 1.33 H Est GFR ( Amer) 46 L Est GFR (Non-Af Amer) 38 L Glucose 99 Calcium 9.4 Total Bilirubin 0.4 AST 17 ALT 24 Alkaline Phosphatase 98 Total Protein 6.1 L Albumin 3.6 11/26/17 11/26/17 11/26/17 05:36 05:36 11:47 Creatine Kinase 25 L 24 L CK-MB (CK-2) 0.80 Troponin I 0.068 11/26/17 11/26/17 11/26/17 11:47 16:45 16:45 Creatine Kinase 45 CK-MB (CK-2) 0.88 0.78 Troponin I 0.039 0.032 11/28/17 11/28/17 06:11 06:11 WBC 5.7 RBC 4.00 Hgb 11.8 L Hct 35.4 L MCV 88 MCH 29.4 MCHC 33.3 RDW 13.8 Plt Count 241 Seg Neutrophils % 64.1 Lymphocytes % 22.5 Monocytes % 9.7 Eosinophils % 3.3 Basophils % 0.4 Absolute Neutrophils 3.6 Absolute Lymphocytes 1.3 Absolute Monocytes 0.6 Absolute Eosinophils 0.2 Absolute Basophils 0.0 Sodium 139.5 Potassium 4.4 Chloride 102 Carbon Dioxide 29 Anion Gap 9 BUN 19 Creatinine 1.33 H Est GFR ( Amer) 46 L Est GFR (Non-Af Amer) 38 L Glucose 99 Calcium 9.4 Total Bilirubin 0.4 Direct Bilirubin 0.3 AST 17 ALT 24 Alkaline Phosphatase 98 Total Protein 6.1 L Albumin 3.6 Impressions: Chest X-Ray 11/25/17 23:35 FINDINGS/IMPRESSION: Prominent right hilum is unchanged. Sequela of emphysema with hyperlucent lungs. Atelectasis at lung bases. No focal consolidation. No large pleural effusions. No acute osseous findings. Chest/Abdomen CTA 11/26/17 00:14 IMPRESSION: 1. No acute pulmonary embolism. 2. Trace bilateral pleural effusions. 3. Centrilobular emphysema. 4. Large hiatal hernia. 5. 3.2 cm incidental thyroid nodule Recommend thyroid US. Reference: J Am Allyn Radiol. 2015 Apr;12(2): 143-50 Assessment & Plan - Diagnosis (1) Elevated troponin Is this a current diagnosis for this admission?: Yes Plan: Due to elevated creatinine and blood pressure. Cardiology consulted. Nuclear Medicine stress is planned for today. (2) Hypertensive emergency Is this a current diagnosis for this admission?: Yes Plan: With pulmonary edema and chest pain. Blood pressure much improved. (3) Shortness of breath Is this a current diagnosis for this admission?: Yes Plan: Resolved. (4) CAD (coronary artery disease) Qualifiers: Coronary Disease-Associated Artery/Lesion type: [place] artery [place] vs. transplanted heart: [place] heart Associated angina: with unstable angina Qualified Code(s): I25.110 - Atherosclerotic heart disease of [place] coronary artery with unstable angina pectoris Is this a current diagnosis for this admission?: Yes Plan: Cardiology consult. Continue home medications. (5) COPD (chronic obstructive pulmonary disease) Qualifiers: COPD type: unspecified COPD Qualified Code(s): J44.9 - Chronic obstructive pulmonary disease, unspecified Is this a current diagnosis for this admission?: Yes Plan: Nebs prn. (6) HTN (hypertension) Qualifiers: Hypertension type: essential hypertension Qualified Code(s): I10 - Essential (primary) hypertension Is this a current diagnosis for this admission?: Yes Plan: Uncontrolled with headache and pulmonary edema and respiratory distress. All resolved now that blood pressure is better controlled. (7) Headache Qualifiers: Headache type: other drug induced headache Is this a current diagnosis for this admission?: Yes Plan: Resolved. (8) Congestive heart failure Qualifiers: Heart failure type: unspecified Heart failure chronicity: acute Qualified Code(s): I50.9 - Heart failure, unspecified Is this a current diagnosis for this admission?: Yes Plan: Echo pending. Cardiology consulted. (9) MEHDI (acute kidney injury) Is this a current diagnosis for this admission?: Yes Plan: Due to elevated blood pressure. Monitor. Possibly chronic. (10) Heart murmur, aortic Is this a current diagnosis for this admission?: Yes Plan: With radiation to carotids bilaterally. I have discussed this with Dr. Malloy. Echocardiogram ordered. - Time Time Spent with patient: 25-34 minutes Medications reviewed and adjusted accordingly: Yes
[2017-11-28] MEDS ORDERED: SUCRALFATE 1 GM TABLET PO SCH (14:00)
[2017-11-28] MEDS ORDERED: REGADENOSON INJ 0.4 MG/5 ML DISP.SYRIN IV ONE (14:43)
[2017-11-28] MEDS: DONEPEZIL HCL 5 MG TABLET PO SCH (15:01)
[2017-11-28] MEDS: CYANOCOBALAMIN (VITAMIN B-12) 1,000 MCG TABLET PO SCH (15:01)
[2017-11-28] MEDS: PRIMIDONE 50 MG TABLET PO SCH (17:21)
[2017-11-28] MEDS ORDERED: CARBAMAZEPINE 400 MG PO SCH (18:00)
--- NOTE | 2017-11-28 18:11 | XCELERA REPORT ---
[address] [address] Transthoracic Echocardiogram Report Name: BERNABE DORMAN Age: 82 yrs Gender: Female : 1935 Patient Status: Inpatient Patient Location: [address] [place] [address] Study Date: 11/28/2017 09:32 AM Procedure: A complete two-dimensional transthoracic echocardiogram was performed (2D, M-mode, spectral and color flow Doppler). The study was technically difficult with many images being suboptimal in quality. Reason For Study: CHF Ordering Physician: DONOVAN GOMEZ Performed By: Lexi Torres Interpretation Summary The left ventricular ejection fraction is normal. There is mild concentric left ventricular hypertrophy. The left ventricle is grossly normal size. Doppler measurements suggest pseudonormalized left ventricular relaxation, which is associated with grade II/IV or mild to moderate diastolic dysfunction Regional wall motion abnormalities cannot be excluded due to limited visualization. The right ventricle is mildly dilated. The right ventricular systolic function is normal. The right ventricle appears to be hypertrophied The left atrium is mildly dilated. The right atrium is normal in size There is a mild amount of mitral regurgitation There is mild mitral stenosis There is a mild amount of aortic regurgitation There is no aortic valve stenosis There is a mild amount of tricuspid regurgitation There is mild pulmonary hypertension by echo Right ventricular systolic pressure is estimated to be elevated at 30-40mmHg. The aortic root is not well visualized but is probably normal size. The inferior vena cava was not well visualized Minimal pericardial effusion. MMode/2D Measurements & Calculations RVDd: 3.2 cm LVIDd: 5.1 cm FS: 31.7 % Ao root diam: 2.7 cm IVSd: 1.1 cm LVIDs: 3.5 cm EDV(Teich): 123.3 ml Ao root area: 5.8 cm2 LVPWd: 1.4 cm ESV(Teich): 50.0 ml EF(Teich): 59.5 % LVOT diam: 1.6 cm LVOT area: 2.0 cm2 Doppler Measurements & Calculations Ao V2 max: AI max danya: LV V1 max PG: SV(LVOT): 223.8 cm/sec 384.6 cm/sec 2.7 mmHg 32.7 ml Ao max P.0 mmHg AI max P.2 mmHg LV V1 mean PG: Ao V2 mean: AI dec slope: 1.3 mmHg 165.5 cm/sec LV V1 max: Ao mean P.4 cm/sec2 82.5 cm/sec 11.9 mmHg AI P1/2t: 390.7 msec LV V1 mean: Ao V2 VTI: 42.3 cm 54.6 cm/sec LV V1 VTI: 16.1 cm DONOVAN(I,D): 0.77 cm2 DONOVAN(V,D): 0.75 cm2 PA V2 max: PI end-d danya: TR max danya: 118.6 cm/sec 96.2 cm/sec 283.2 cm/sec PA max P.6 mmHg TR max P.1 mmHg Left Ventricle The left ventricle is grossly normal size. There is mild concentric left ventricular hypertrophy. The left ventricular ejection fraction is normal. Doppler measurements suggest pseudonormalized left ventricular relaxation, which is associated with grade II/IV or mild to moderate diastolic dysfunction. Regional wall motion abnormalities cannot be excluded due to limited visualization. Right Ventricle The right ventricle is mildly dilated. The right ventricle appears to be hypertrophied. The right ventricular systolic function is normal. Atria The right atrium is normal in size. The left atrium is mildly dilated. Interarterial septum not well visualized and not well dopplered. Cannot comment on ASD/PFO presence. Mitral Valve There is mild mitral leaflet calcification. There is mild mitral annular calcification. There is mild mitral stenosis. There is a mild amount of mitral regurgitation. Aortic Valve The aortic valve is mildly calcified. There is no aortic valve stenosis. There is a mild amount of aortic regurgitation. Tricuspid Valve The tricuspid valve is not well visualized secondary to technical limitations. There is no tricuspid stenosis. There is a mild amount of tricuspid regurgitation. There is mild pulmonary hypertension by echo. Right ventricular systolic pressure is estimated to be elevated at 30-40mmHg. Pulmonic Valve The pulmonic valve is not well visualized. Great Vessels The aortic root is not well visualized but is probably normal size. The inferior vena cava was not well visualized. Effusions Minimal pericardial effusion. : DONOVAN GOMEZ > Venita Malloy
--- NOTE | 2017-11-28 20:20 | PDOC PROGRESS REPORT ---
Subjective Progress Note for:: 11/28/17 Subjective:: Patient seems to be doing better with gradual improvement. Pt is denying any chest arm or neck discomfort. Patient denying any PND, orthopnea. Patient denied any sustained palpitations, dizziness, syncope, near syncope. Patient denying any fever chills. Patient denying any other significant discomfort. Patient is maintaining sinus rhythm. Review of systems: Rest review of systems negative. Medications: Medications have been reviewed. Reason For Visit: HTN EMERGENCY DIASTOLIC HEART FAILURE Physical Exam Vital Signs: Temp Pulse Resp BP Pulse Ox 98.1 F 80 20 132/54 H 98 11/28/17 19:35 11/28/17 19:35 11/28/17 19:35 11/28/17 19:35 11/28/17 19:35 Intake & Output 11/27/17 11/28/17 11/29/17 06:59 06:59 06:59 Intake Total 540 700 118 Output Total 900 1050 600 Balance -360 -350 -482 Weight 71.3 kg 72.6 kg Exam: GENERAL: well-nourished and in no acute distress. Alert and oriented x3 HEAD: Atraumatic, normocephalic. EYES: Pupils equal round and reactive to light, extraocular movements intact, sclera anicteric, conjunctiva are normal. ENT: TMs normal, nares patent, oropharynx clear without exudates. Moist mucous membranes. No oral ulcerations or bleeding gums noted NECK: supple without lymphadenopathy. Trachea is central. No cervical or axillary lymphadenopathy noted. Carotids are 2+, JVD 8-10 cm LUNGS: Respiration seems nonlabored, no significant accessory muscle action noted. Bibasilar fine crackles are noted. No wheezes rales or rhonchi noted. No significant dullness noted on percussion. CHEST: Palpation of the chest wall shows no significant chest wall tenderness. 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 ABDOMEN: Soft, no significant tenderness appreciated, normoactive bowel sounds. No guarding, no rebound. No rigidity noted . No masses appreciated. EXTREMITIES: Pedal pulses are 1-2+, no calf tenderness noted. No clubbing or cyanosis. negative pedal edema noted NEUROLOGICAL: Focused neurological exam showed no significant neurologic deficit. Normal speech, no focal weakness appreciated. PSYCH: Normal mood, normal affect. Judgment and insight within normal limits. SKIN: No significant ecchymosis, skin is noted to be warm. MUSCULOSKELETAL EXAM: No significant acute joint swelling noted. Results Laboratory Results: 11/28/17 06:11 11/28/17 06:11 11/28/17 11/28/17 06:11 06:11 WBC 5.7 RBC 4.00 Hgb 11.8 L Hct 35.4 L MCV 88 MCH 29.4 MCHC 33.3 RDW 13.8 Plt Count 241 Seg Neutrophils % 64.1 Lymphocytes % 22.5 Monocytes % 9.7 Eosinophils % 3.3 Basophils % 0.4 Absolute Neutrophils 3.6 Absolute Lymphocytes 1.3 Absolute Monocytes 0.6 Absolute Eosinophils 0.2 Absolute Basophils 0.0 Sodium 139.5 Potassium 4.4 Chloride 102 Carbon Dioxide 29 Anion Gap 9 BUN 19 Creatinine 1.33 H Est GFR ( Amer) 46 L Est GFR (Non-Af Amer) 38 L Glucose 99 Calcium 9.4 Total Bilirubin 0.4 AST 17 ALT 24 Alkaline Phosphatase 98 Total Protein 6.1 L Albumin 3.6 11/26/17 11/26/17 11/26/17 05:36 05:36 11:47 Creatine Kinase 25 L 24 L CK-MB (CK-2) 0.80 Troponin I 0.068 11/26/17 11/26/17 11/26/17 11:47 16:45 16:45 Creatine Kinase 45 CK-MB (CK-2) 0.88 0.78 Troponin I 0.039 0.032 Impressions: Chest X-Ray 11/25/17 23:35 FINDINGS/IMPRESSION: Prominent right hilum is unchanged. Sequela of emphysema with hyperlucent lungs. Atelectasis at lung bases. No focal consolidation. No large pleural effusions. No acute osseous findings. Chest/Abdomen CTA 11/26/17 00:14 IMPRESSION: 1. No acute pulmonary embolism. 2. Trace bilateral pleural effusions. 3. Centrilobular emphysema. 4. Large hiatal hernia. 5. 3.2 cm incidental thyroid nodule Recommend thyroid US. Reference: J Am Allyn Radiol. 2015 Apr;12(2): 143-50 Assessment & Plan - Diagnosis (1) Congestive heart failure Qualifiers: Heart failure type: unspecified Heart failure chronicity: acute Qualified Code(s): I50.9 - Heart failure, unspecified Is this a current diagnosis for this admission?: Yes (2) Hypertensive emergency Is this a current diagnosis for this admission?: Yes (3) CAD (coronary artery disease) Qualifiers: Coronary Disease-Associated Artery/Lesion type: [place] artery [place] vs. transplanted heart: [place] heart Associated angina: with unstable angina Qualified Code(s): I25.110 - Atherosclerotic heart disease of [place] coronary artery with unstable angina pectoris Is this a current diagnosis for this admission?: Yes (4) COPD (chronic obstructive pulmonary disease) Qualifiers: COPD type: unspecified COPD Qualified Code(s): J44.9 - Chronic obstructive pulmonary disease, unspecified Is this a current diagnosis for this admission?: Yes (5) HTN (hypertension) Qualifiers: Hypertension type: essential hypertension Qualified Code(s): I10 - Essential (primary) hypertension Is this a current diagnosis for this admission?: Yes (6) Hyperlipidemia Qualifiers: Hyperlipidemia type: unspecified Qualified Code(s): E78.5 - Hyperlipidemia , unspecified Is this a current diagnosis for this admission?: Yes (7) Valvular heart disease Is this a current diagnosis for this admission?: Yes (8) Elevated troponin Is this a current diagnosis for this admission?: Yes - Notes Notes: Nuclear stress test noted to be overall low risk. 2D echocardiogram shows mild TN mild AI and well-preserved LVEF Recommend medical management. Congestive heart failure: [place] to be related to severe hypertension and diastolic dysfunction. Mitral regurgitation contributing. At this time agree with diuretic therapy. Hypertensive emergency: Patient claims history of labile blood pressure. Will consider evaluating her for renal artery stenosis. Currently blood pressure is well controlled. CAD: Patient gives history of CAD. Nuclear stress test results were relatively unremarkable. This amount of troponin I elevation could well be from CHF. COPD: Currently stable continue current management plans. Hypertension: This has been difficult to control. Will try control blood pressure during this hospitalization. Valvular heart disease: Mitral regurgitation and aortic incompetence noted. May require follow-up echocardiograms depending on symptoms. Elevated troponin I: Possibly related to severe hypertension, CHF. Nuclear stress test was performed and was noted to be relatively unremarkable.. - Time Time with patient: Greater than 35 minutes - CODE STATUS was discussed, patient remains full code. Surrogate decision-maker unchanged. Multiple medical problems were addressed. More than 50% of the time spent coordinating care, discussing management plans with involved caregivers. Management plans discussed with involved personnels. Medical decision making was of moderate to high complexity, patient's has multiple comorbidities. Medications reviewed and adjusted accordingly: Yes
[2017-11-28] MEDS: METOPROLOL SUCCINATE 50 MG TAB.SR.24H PO SCH (21:17)
[2017-11-28] MEDS: SIMVASTATIN 40 MG TABLET PO SCH (21:17)
[2017-11-28] MEDS: FAMOTIDINE 20 MG TABLET PO SCH (21:17)
[2017-11-28] MEDS ORDERED: (PENDING PHARMACY ID) (Ranitidine Hcl [Zantac] 300 MG) PO SCH (22:00)
[2017-11-29] MEDS: SUCRALFATE 1 GM TABLET PO SCH ×5 (08:24→22:08)
[2017-11-29] MEDS: PRIMIDONE 50 MG TABLET PO SCH ×4 (08:24→17:25)
[2017-11-29] MEDS: HYDRALAZINE HCL INJ/PF 20 MG/1 ML SDV IV PRN (08:24)
[2017-11-29] MEDS: CARBAMAZEPINE 200 MG TAB.SR.12H PO SCH ×3 (08:24→17:25)
[2017-11-29] MEDS: HEPARIN SOD (PORCINE) 5,000 UNIT/ML 1 ML SYRINGE SUBCUT SCH ×3 (09:12→22:09)
[2017-11-29] MEDS: LANSOPRAZOLE 30 MG TAB.RAP.DR PO SCH (09:12)
[2017-11-29] MEDS ORDERED: METOPROLOL TARTRATE 25 MG TABLET PO ONE (09:32)
[2017-11-29] MEDS: FAMOTIDINE 20 MG TABLET PO SCH ×2 (09:37→22:08)
[2017-11-29] MEDS: DONEPEZIL HCL 5 MG TABLET PO SCH (09:38)
[2017-11-29] MEDS: LISINOPRIL 10 MG TABLET PO SCH ×2 (09:39→22:08)
[2017-11-29] MEDS: NIFEDIPINE 30 MG TAB.ER.24 PO SCH (09:39)
[2017-11-29] MEDS: CYANOCOBALAMIN (VITAMIN B-12) 1,000 MCG TABLET PO SCH (09:40)
[2017-11-29] MEDS: FUROSEMIDE INJ/PF 40 MG/4 ML SDV IV SCH (09:40)
[2017-11-29] MEDS ORDERED: ISOSORBIDE MONONITRATE 30 MG TAB.ER.24H PO SCH (09:45)
[2017-11-29] MEDS: ISOSORBIDE MONONITRATE 60 MG TAB.ER.24H PO SCH (11:28)
[2017-11-29] MEDS: ASPIRIN 81 MG TABLET, ENT COATED PO SCH (11:29)
--- NOTE | 2017-11-29 16:04 | PDOC PROGRESS REPORT ---
Subjective Progress Note for:: 11/29/17 Reason For Visit: HTN EMERGENCY DIASTOLIC HEART FAILURE Physical Exam Vital Signs: Temp Pulse Resp BP Pulse Ox 97.8 F 77 12 139/64 H 97 11/29/17 11:45 11/29/17 14:00 11/29/17 11:45 11/29/17 11:45 11/29/17 11:45 Intake & Output 11/28/17 11/29/17 11/30/17 06:59 06:59 06:59 Intake Total 700 118 592 Output Total 1050 800 500 Balance -350 -682 92 Weight 72.6 kg 72.4 kg Additional comments: General appearance: PRESENT: no acute distress, cooperative Respiratory exam: PRESENT: other - No increased work of breathing.. ABSENT: rales, rhonchi, wheezes Cardiovascular exam: PRESENT: RRR. ABSENT: gallop, rubs, systolic murmur Pulses: PRESENT: normal carotid pulses, normal dorsalis pedis pul GI/Abdominal exam: PRESENT: normal bowel sounds, soft. ABSENT: distended, hernia, mass, organomegaly, tenderness Extremities exam: PRESENT: clubbing. ABSENT: pedal edema, tenderness Musculoskeletal exam: PRESENT: normal inspection. ABSENT: deformity, dislocation, tenderness Neurological exam: PRESENT: alert, awake, oriented to person, oriented to place , oriented to time, oriented to situation, CN II-XII grossly intact. ABSENT: motor sensory deficit Psychiatric exam: PRESENT: appropriate affect, normal mood Skin exam: PRESENT: dry, intact, warm Results Laboratory Results: 11/28/17 06:11 11/28/17 06:11 11/26/17 11/26/17 11/26/17 05:36 05:36 11:47 Creatine Kinase 25 L 24 L CK-MB (CK-2) 0.80 Troponin I 0.068 11/26/17 11/26/17 11/26/17 11:47 16:45 16:45 Creatine Kinase 45 CK-MB (CK-2) 0.88 0.78 Troponin I 0.039 0.032 Impressions: Chest X-Ray 11/25/17 23:35 FINDINGS/IMPRESSION: Prominent right hilum is unchanged. Sequela of emphysema with hyperlucent lungs. Atelectasis at lung bases. No focal consolidation. No large pleural effusions. No acute osseous findings. Chest/Abdomen CTA 11/26/17 00:14 IMPRESSION: 1. No acute pulmonary embolism. 2. Trace bilateral pleural effusions. 3. Centrilobular emphysema. 4. Large hiatal hernia. 5. 3.2 cm incidental thyroid nodule Recommend thyroid US. Reference: J Am Allyn Radiol. 2015 Apr;12(2): 143-50 Assessment & Plan - Diagnosis (1) Elevated troponin Is this a current diagnosis for this admission?: Yes Plan: Due to elevated creatinine and blood pressure. Cardiology consulted. Nuclear Medicine stress demonstrated a low risk of ischemic cause. Dr. Malloy has recommended medical management. I have increased the patient's dosage of metoprolol, increased her dosage of Imdur, and added ECASA. She is already on simvastatin. (2) Hypertensive emergency Is this a current diagnosis for this admission?: Yes Plan: With pulmonary edema and chest pain. Blood pressure much improved. (3) Shortness of breath Is this a current diagnosis for this admission?: Yes Plan: Resolved. Due to pulmonary edema due to hypertensive emergency. (4) CAD (coronary artery disease) Qualifiers: Coronary Disease-Associated Artery/Lesion type: [place] artery [place] vs. transplanted heart: [place] heart Associated angina: with unstable angina Qualified Code(s): I25.110 - Atherosclerotic heart disease of [place] coronary artery with unstable angina pectoris Is this a current diagnosis for this admission?: Yes Plan: Medical management as per Dr. Malloy. ASA EC, Metoprolol, MIKE I, Statin, and Imdur. (5) COPD (chronic obstructive pulmonary disease) Qualifiers: COPD type: unspecified COPD Qualified Code(s): J44.9 - Chronic obstructive pulmonary disease, unspecified Is this a current diagnosis for this admission?: Yes Plan: Nebs prn. Stable. (6) Headache Qualifiers: Headache type: other drug induced headache Is this a current diagnosis for this admission?: Yes Plan: Resolved. (7) Congestive heart failure Qualifiers: Heart failure type: unspecified Heart failure chronicity: acute Qualified Code(s): I50.9 - Heart failure, unspecified Is this a current diagnosis for this admission?: Yes Plan: Echo demonstrates a normal EF. Diastolic dysfunction. Diuresis. A negative fluid balanced has been maintained. (8) MEHDI (acute kidney injury) Is this a current diagnosis for this admission?: Yes Plan: Due to elevated blood pressure. Monitor. Possibly chronic. Creatinine is 1.33. Monitor. (9) Heart murmur, aortic Is this a current diagnosis for this admission?: Yes Plan: With radiation to carotids bilaterally. I have discussed this with Dr. Malloy. Echocardiogram demonstrates Mild AI and MR. - Time Time Spent with patient: 25-34 minutes Medications reviewed and adjusted accordingly: Yes
[2017-11-29] MEDS ORDERED: METOPROLOL SUCCINATE 50 MG TAB.SR.24H PO SCH (22:00)
[2017-11-29] MEDS: SIMVASTATIN 40 MG TABLET PO SCH (22:08)
--- NOTE | 2017-11-29 23:22 | PDOC PROGRESS REPORT ---
Subjective Progress Note for:: 11/29/17 Subjective:: Patient seems to be doing better with gradual improvement. Pt is denying any chest arm or neck discomfort. Patient denying any PND, orthopnea. Patient denied any sustained palpitations, dizziness, syncope, near syncope. Patient denying any fever chills. Patient denying any other significant discomfort. Patient is maintaining sinus rhythm. Review of systems: Rest review of systems negative. Medications: Medications have been reviewed. Reason For Visit: HTN URGENCY, CHF Physical Exam Vital Signs: Temp Pulse Resp BP Pulse Ox 98.8 F 72 16 124/77 98 11/29/17 19:42 11/29/17 19:42 11/29/17 19:42 11/29/17 19:42 11/29/17 19:42 Intake & Output 11/28/17 11/29/17 11/30/17 06:59 06:59 06:59 Intake Total 118 592 Output Total 800 1000 Balance -682 -408 Weight 72.4 kg Exam: GENERAL: well-nourished and in no acute distress. Alert and oriented x3 HEAD: Atraumatic, normocephalic. EYES: Pupils equal round and reactive to light, extraocular movements intact, sclera anicteric, conjunctiva are normal. ENT: TMs normal, nares patent, oropharynx clear without exudates. Moist mucous membranes. No oral ulcerations or bleeding gums noted NECK: supple without lymphadenopathy. Trachea is central. No cervical or axillary lymphadenopathy noted. Carotids are 2+, JVD 8-10 cm LUNGS: Respiration seems nonlabored, no significant accessory muscle action noted. Bibasilar fine crackles are noted. No wheezes rales or rhonchi noted. No significant dullness noted on percussion. CHEST: Palpation of the chest wall shows no significant chest wall tenderness. 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 ABDOMEN: Soft, no significant tenderness appreciated, normoactive bowel sounds. No guarding, no rebound. No rigidity noted . No masses appreciated. EXTREMITIES: Pedal pulses are 1-2+, no calf tenderness noted. No clubbing or cyanosis. negative pedal edema noted NEUROLOGICAL: Focused neurological exam showed no significant neurologic deficit. Normal speech, no focal weakness appreciated. PSYCH: Normal mood, normal affect. Judgment and insight within normal limits. SKIN: No significant ecchymosis, skin is noted to be warm. MUSCULOSKELETAL EXAM: No significant acute joint swelling noted. Results Impressions: Chest X-Ray 11/25/17 23:35 FINDINGS/IMPRESSION: Prominent right hilum is unchanged. Sequela of emphysema with hyperlucent lungs. Atelectasis at lung bases. No focal consolidation. No large pleural effusions. No acute osseous findings. Chest/Abdomen CTA 11/26/17 00:14 IMPRESSION: 1. No acute pulmonary embolism. 2. Trace bilateral pleural effusions. 3. Centrilobular emphysema. 4. Large hiatal hernia. 5. 3.2 cm incidental thyroid nodule Recommend thyroid US. Reference: J Am Allyn Radiol. 2015 Apr;12(2): 143-50 Assessment & Plan - Diagnosis (1) Congestive heart failure Qualifiers: Heart failure type: unspecified Heart failure chronicity: acute Qualified Code(s): I50.9 - Heart failure, unspecified Is this a current diagnosis for this admission?: Yes (2) Hypertensive emergency Is this a current diagnosis for this admission?: Yes (3) CAD (coronary artery disease) Qualifiers: Coronary Disease-Associated Artery/Lesion type: [place] artery [place] vs. transplanted heart: [place] heart Associated angina: with unstable angina Qualified Code(s): I25.110 - Atherosclerotic heart disease of [place] coronary artery with unstable angina pectoris Is this a current diagnosis for this admission?: Yes (4) COPD (chronic obstructive pulmonary disease) Qualifiers: COPD type: unspecified COPD Qualified Code(s): J44.9 - Chronic obstructive pulmonary disease, unspecified Is this a current diagnosis for this admission?: Yes (5) HTN (hypertension) Qualifiers: Hypertension type: essential hypertension Qualified Code(s): I10 - Essential (primary) hypertension Is this a current diagnosis for this admission?: Yes (6) Hyperlipidemia Qualifiers: Hyperlipidemia type: unspecified Qualified Code(s): E78.5 - Hyperlipidemia , unspecified Is this a current diagnosis for this admission?: Yes (7) Valvular heart disease Is this a current diagnosis for this admission?: Yes (8) Elevated troponin Is this a current diagnosis for this admission?: Yes - Notes Notes: Nuclear stress test results were reviewed with the patient. 2D echo results were reviewed with the patient. Agree with medication changes performed by the hospitalist. Patient does wish to follow-up with me as an outpatient and will be happy to see her as an outpatient. Congestive heart failure: [place] to be related to severe hypertension and diastolic dysfunction. Mitral regurgitation contributing. At this time agree with diuretic therapy. Hypertensive emergency: Patient claims history of labile blood pressure. Will consider evaluating her for renal artery stenosis. Currently blood pressure is well controlled. CAD: Patient gives history of CAD. Nuclear stress test results were relatively unremarkable. This amount of troponin I elevation could well be from CHF. COPD: Currently stable continue current management plans. Hypertension: This has been difficult to control. Will try control blood pressure during this hospitalization. Valvular heart disease: Mitral regurgitation and aortic incompetence noted. May require follow-up echocardiograms depending on symptoms. Elevated troponin I: Possibly related to severe hypertension, CHF. Nuclear stress test was performed and was noted to be relatively unremarkable - Time Time with patient: Greater than 35 minutes - Today I took the opportunity to discuss results of nuclear stress test and 2D echocardiogram in detail. Patient questions were answered. Case for medical management was presented which is severely appropriate in this lady at this time. CODE STATUS was discussed, patient remains full code. Surrogate decision-maker unchanged. Multiple medical problems were addressed. More than 50% of the time spent coordinating care, discussing management plans with involved caregivers. Management plans discussed with involved personnels. Medical decision making was of moderate to high complexity, patient's has multiple comorbidities. Medications reviewed and adjusted accordingly: Yes
[2017-11-30] MEDS: HEPARIN SOD (PORCINE) 5,000 UNIT/ML 1 ML SYRINGE SUBCUT SCH (05:21)
[2017-11-30] MEDS: LANSOPRAZOLE 30 MG TAB.RAP.DR PO SCH (05:21)
[2017-11-30] MEDS: PRIMIDONE 50 MG TABLET PO SCH (07:34)
[2017-11-30] MEDS: SUCRALFATE 1 GM TABLET PO SCH (07:34)
[2017-11-30] MEDS: CARBAMAZEPINE 200 MG TAB.SR.12H PO SCH (07:34)
[2017-11-30] MEDS: LISINOPRIL 10 MG TABLET PO SCH (09:39)
[2017-11-30] MEDS: FUROSEMIDE INJ/PF 40 MG/4 ML SDV IV SCH (09:40)
[2017-11-30] MEDS: ASPIRIN 81 MG TABLET, ENT COATED PO SCH (09:40)
[2017-11-30] MEDS: ISOSORBIDE MONONITRATE 60 MG TAB.ER.24H PO SCH (09:40)
[2017-11-30] MEDS: NIFEDIPINE 30 MG TAB.ER.24 PO SCH (09:40)
[2017-11-30] MEDS: DONEPEZIL HCL 5 MG TABLET PO SCH (09:41)
[2017-11-30] MEDS: CYANOCOBALAMIN (VITAMIN B-12) 1,000 MCG TABLET PO SCH (09:41)
[2017-11-30] MEDS: FAMOTIDINE 20 MG TABLET PO SCH (09:41)
[2017-11-30 12:46] VITALS: BP 104/64
--- NOTE | 2017-11-30 22:44 | PDOC PROGRESS REPORT ---
Subjective Progress Note for:: 11/30/17 Subjective:: Patient seems to be doing better with gradual improvement. Pt is denying any chest arm or neck discomfort. Patient denying any PND, orthopnea. Patient denied any sustained palpitations, dizziness, syncope, near syncope. Patient denying any fever chills. Patient denying any other significant discomfort. Patient is maintaining sinus rhythm. Review of systems: Rest review of systems negative. Medications: Medications have been reviewed. Reason For Visit: HTN URGENCY, CHF Physical Exam Vital Signs: Temp Pulse Resp BP Pulse Ox 98.7 F 64 15 179/73 H 95 11/30/17 12:35 11/30/17 12:35 11/30/17 12:35 11/30/17 12:35 11/30/17 12:35 Intake & Output 11/29/17 11/30/17 12/01/17 06:59 06:59 06:59 Intake Total 118 592 155 Output Total 800 1000 350 Balance -682 -408 -195 Weight 72.4 kg 72.4 kg Exam: GENERAL: well-nourished and in no acute distress. Alert and oriented x3 HEAD: Atraumatic, normocephalic. EYES: Pupils equal round and reactive to light, extraocular movements intact, sclera anicteric, conjunctiva are normal. ENT: TMs normal, nares patent, oropharynx clear without exudates. Moist mucous membranes. No oral ulcerations or bleeding gums noted NECK: supple without lymphadenopathy. Trachea is central. No cervical or axillary lymphadenopathy noted. Carotids are 2+, JVD 8-10 cm LUNGS: Respiration seems nonlabored, no significant accessory muscle action noted. Bibasilar fine crackles are noted. No wheezes rales or rhonchi noted. No significant dullness noted on percussion. CHEST: Palpation of the chest wall shows no significant chest wall tenderness. 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 ABDOMEN: Soft, no significant tenderness appreciated, normoactive bowel sounds. No guarding, no rebound. No rigidity noted . No masses appreciated. EXTREMITIES: Pedal pulses are 1-2+, no calf tenderness noted. No clubbing or cyanosis. negative pedal edema noted NEUROLOGICAL: Focused neurological exam showed no significant neurologic deficit. Normal speech, no focal weakness appreciated. PSYCH: Normal mood, normal affect. Judgment and insight within normal limits. SKIN: No significant ecchymosis, skin is noted to be warm. MUSCULOSKELETAL EXAM: No significant acute joint swelling noted. Results Impressions: Chest X-Ray 11/25/17 23:35 FINDINGS/IMPRESSION: Prominent right hilum is unchanged. Sequela of emphysema with hyperlucent lungs. Atelectasis at lung bases. No focal consolidation. No large pleural effusions. No acute osseous findings. Chest/Abdomen CTA 11/26/17 00:14 IMPRESSION: 1. No acute pulmonary embolism. 2. Trace bilateral pleural effusions. 3. Centrilobular emphysema. 4. Large hiatal hernia. 5. 3.2 cm incidental thyroid nodule Recommend thyroid US. Reference: J Am Allyn Radiol. 2015 Apr;12(2): 143-50 Assessment & Plan - Diagnosis (1) Congestive heart failure Qualifiers: Heart failure type: unspecified Heart failure chronicity: acute Qualified Code(s): I50.9 - Heart failure, unspecified Is this a current diagnosis for this admission?: Yes (2) Hypertensive emergency Is this a current diagnosis for this admission?: Yes (3) CAD (coronary artery disease) Qualifiers: Coronary Disease-Associated Artery/Lesion type: [place] artery [place] vs. transplanted heart: [place] heart Associated angina: with unstable angina Qualified Code(s): I25.110 - Atherosclerotic heart disease of [place] coronary artery with unstable angina pectoris Is this a current diagnosis for this admission?: Yes (4) COPD (chronic obstructive pulmonary disease) Qualifiers: COPD type: unspecified COPD Qualified Code(s): J44.9 - Chronic obstructive pulmonary disease, unspecified Is this a current diagnosis for this admission?: Yes (5) HTN (hypertension) Qualifiers: Hypertension type: essential hypertension Qualified Code(s): I10 - Essential (primary) hypertension Is this a current diagnosis for this admission?: Yes (6) Hyperlipidemia Qualifiers: Hyperlipidemia type: unspecified Qualified Code(s): E78.5 - Hyperlipidemia , unspecified Is this a current diagnosis for this admission?: Yes (7) Valvular heart disease Is this a current diagnosis for this admission?: Yes (8) Elevated troponin Is this a current diagnosis for this admission?: Yes (9) Mitral regurgitation Qualifiers: Cardiac valve disease etiology: etiology unspecified Qualified Code(s): I34.0 - Nonrheumatic mitral (valve) insufficiency Is this a current diagnosis for this admission?: Yes (10) Aortic incompetence Qualifiers: Cardiac valve disease etiology: etiology unspecified Qualified Code(s): I35.1 - Nonrheumatic aortic (valve) insufficiency Is this a current diagnosis for this admission?: Yes - Notes Notes: Patient had ambulated without any difficulty. She seems to be on a stable medical regimen. Patient can be discharged from cardiac standpoint with close cardiology follow-up. Congestive heart failure: [place] to be related to severe hypertension and diastolic dysfunction. Mitral regurgitation contributing. At this time agree with diuretic therapy. This along with good control of blood pressure should suffice. Hypertensive emergency: Patient claims history of labile blood pressure. Will consider evaluating her for renal artery stenosis. Currently blood pressure is well controlled. CAD: Patient gives history of CAD. Nuclear stress test results were relatively unremarkable. This amount of troponin I elevation could well be from CHF. Currently without any symptoms indicative of angina or angina equivalent symptoms. COPD: Currently stable continue current management plans. Hypertension: This has been difficult to control. Will try control blood pressure during this hospitalization. Valvular heart disease: Mitral regurgitation and aortic incompetence noted. May require follow-up echocardiograms depending on symptoms. Elevated troponin I: Possibly related to severe hypertension, CHF. Nuclear stress test was performed and was noted to be relatively unremarkable - Time Time with patient: 15-25 minutes - CODE STATUS was discussed, patient remains full code. Surrogate decision-maker unchanged. Multiple medical problems were addressed. More than 50% of the time spent coordinating care, discussing management plans with involved caregivers. Management plans discussed with involved personnels. Medical decision making was of moderate to high complexity , patient's has multiple comorbidities. Medications reviewed and adjusted accordingly: Yes
== END 2017-11-30 13:34 | disposition home or self-care (01) | DRG 305 ==
LOC: ER 23:22 → EH 11-26 01:47 → 3S 11-26 03:44 → OBSVTOIN 11-28 09:15
PROVIDERS: ADMIT Internal Medicine; ATTEND Internal Medicine
DX: I16.1 Hypertensive emergency (principal); I50.30 Unspecified diastolic (congestive) heart failure; N17.9 Acute kidney failure, unspecified; I11.0 Hypertensive heart disease with heart failure; I25.10 Atherosclerotic heart disease of native coronary artery without angina pectoris; R51 Headache; J44.9 Chronic obstructive pulmonary disease, unspecified; I34.0 Nonrheumatic mitral (valve) insufficiency; I35.1 Nonrheumatic aortic (valve) insufficiency; E78.5 Hyperlipidemia, unspecified; Z79.899 Other long term (current) drug therapy; Z85.118 Personal history of other malignant neoplasm of bronchus and lung; Z85.3 Personal history of malignant neoplasm of breast; K44.9 Diaphragmatic hernia without obstruction or gangrene; Z95.5 Presence of coronary angioplasty implant and graft; Z90.710 Acquired absence of both cervix and uterus; Z90.12 Acquired absence of left breast and nipple; Z88.8 Allergy status to other drugs, medicaments and biological substances
CPT/HCPCS: 36415; 71045; 71275; 78452; 80048; 80053; 82550; 82553; 82803; 83880; 84439; 84443; 84481; 84484; 85025; 93005; 93010; 93017; 93306; 94640; 96374; 96375; 99285; A9500; G0378; J0360; J1644; J1940; J2785; J2930; J3490; J7620; Q9969

== ENCOUNTER 2017-12-12 00:19 | Emergency (ER) | payer MEDICARE ==
--- NOTE | 2017-12-12 03:52 | ER Document Report ---
ED General - General TRAVEL OUTSIDE OF THE U.S. IN LAST 30 DAYS: No <DASH NELSON - Last Filed: 12/12/17 07:18> <DIETER ACOSTA - Last Filed: 12/12/17 11:41> - General Chief Complaint: High Blood Pressure Stated Complaint: BLOOD PRESSURE PROBLEM Time Seen by Provider: 12/12/17 03:29 Notes: Patient is an 82-year-old female that comes to the emergency department for chief complaint of concerned about her blood pressure, headache that started this evening, she states she felt a bandlike sensation around her head, she states she saw a lot of floaters. She denies visual loss, focal numbness or weakness, nausea or vomiting. Headache has dissipated but not completely resolved. She states also earlier she felt like it was harder to get a deep breath and she felt a little bit tight in her chest, this lasted for a short duration and then resolved. She denies any current chest pain or shortness of breath. She denies shortness of breath at this time. Patient was admitted and discharged from the hospital last week after a cardiac evaluation including a stress test, she is on nifedipine, lisinopril, Lasix, she states she is compliant with her medication. Past medical history includes COPD, CAD with stent in , hypertension, hyperlipidemia, CHF, remote history of lung cancer with partial lobectomy. (DASH NELSON) - Related Data Allergies/Adverse Reactions: promethazine HCl [From Phenergan] Allergy (Verified 08/19/14 22:44) Past Medical History - General Information source: Patient - Social History Smoking Status: Never Smoker Chew tobacco use (# tins/day): No Frequency of alcohol use: Rare Drug Abuse: None Lives with: Family Family History: Hypertension Patient has suicidal ideation: No Patient has homicidal ideation: No - Past Medical History Cardiac Medical History: Reports: Hx Congestive Heart Failure, Hx Coronary Artery Disease, Hx Hypercholesterolemia, Hx Hypertension Denies: Hx Heart Attack Pulmonary Medical History: Reports: Hx COPD Denies: Hx Asthma, Hx Bronchitis, Hx Pneumonia Neurological Medical History: Denies: Hx Cerebrovascular Accident, Hx Seizures Renal/ Medical History: Denies: Hx Peritoneal Dialysis Malignancy Medical History: Reports: Hx Breast Cancer, Hx Lung Cancer GI Medical History: Reports: Hx Hiatal Hernia, Hx Ulcer Musculoskeletal Medical History: Denies Hx Arthritis Psychiatric Medical History: Denies: Hx Depression Past Surgical History: Reports: Hx Abdominal Surgery, Hx Breast Surgery - Left mastectomy for breast cancer, Hx Cardiac Catheterization, Hx Cardiac Surgery - stent 2006, Hx Section, Hx Coronary Stent, Hx Gynecologic Surgery - c- section, Hx Hysterectomy, Hx Mastectomy - Left - Immunizations Hx Diphtheria, Pertussis, Tetanus Vaccination: Yes <NETOFIDEFRANCOISEDASH - Last Filed: 12/12/17 07:18> Review of Systems - Review of Systems Constitutional: No symptoms reported EENT: No symptoms reported Cardiovascular: See HPI Respiratory: No symptoms reported Gastrointestinal: No symptoms reported Genitourinary: No symptoms reported Female Genitourinary: No symptoms reported Musculoskeletal: No symptoms reported Skin: No symptoms reported Hematologic/Lymphatic: No symptoms reported Neurological/Psychological: See HPI <NETOFIDEDASH - Last Filed: 12/12/17 07:18> Physical Exam <OMARDASH - Last Filed: 12/12/17 07:18> <DIETER ACOSTA - Last Filed: 12/12/17 11:41> - Vital signs Vitals: Temp Pulse Resp BP Pulse Ox 98.1 F 61 18 176/66 H 98 12/12/17 00:20 12/12/17 00:20 12/12/17 00:20 12/12/17 00:20 12/12/17 00:20 - Notes Notes: GENERAL: Alert, interacts well. No acute distress. HEAD: Normocephalic, atraumatic. EYES: Pupils equal, round, and reactive to light. Extraocular movements intact. ENT: Oral mucosa moist, tongue midline. NECK: Full range of motion. Supple. Trachea midline. LUNGS: Clear to auscultation bilaterally, no wheezes, rales, or rhonchi. No respiratory distress. HEART: Regular rate and rhythm. 1/6 systolic murmur noted. ABDOMEN: Soft, non-tender. Non-distended. Bowel sounds present in all 4 quadrants. EXTREMITIES: Moves all 4 extremities spontaneously. No edema, normal radial and dorsalis pedis pulses bilaterally. No cyanosis. BACK: no cervical, thoracic, lumbar midline tenderness. No saddle anesthesia, normal distal neurovascular exam. NEUROLOGICAL: Alert and oriented x3. Normal speech. [cranial nerves II through XII grossly intact]. PSYCH: Normal affect, normal mood. SKIN: Warm, dry, normal turgor. No rashes or lesions noted. (DASH NELSON) Course - Laboratory Result Diagrams: 12/12/17 03:30 12/12/17 03:30 <DASH NELSON - Last Filed: 12/12/17 07:18> - Laboratory Result Diagrams: 12/12/17 03:30 12/12/17 03:30 <DIETER ACOSTA - Last Filed: 12/12/17 11:41> - Re-evaluation Re-evalutation: Patient given Tylenol for her headache, afterwards this resolved and she fell asleep. CAT scan of the head without intracranial hemorrhage or acute findings. Patient with no neurological deficits on evaluation. EKG shows sinus rhythm at a rate of 58, right bundle branch block, left ventricular hypertrophy, no T-wave inversions or ST segment changes in consecutive leads, no significant change from prior. Chest x-ray still pending a read but does not have the overt vascular congestion with comparison to prior. CBC generally unremarkable, chemistry showing borderline renal functioning which is not significantly changed from prior. BNP is significantly lower than previous, troponin is not elevated. Reevaluated patient. Discussed workup to this point, no current complaints, we will cycle troponin, will provide with lisinopril 20 mg because she knows this is her morning dose, she cannot recall or confirm her morning medications, she states her daughter is coming. 12/12/17 07:18 Introduced to Sandi ASHBY at bedside, no current complaints. Second troponin still pending. (DASH NELSON) 12/12/17 09:32 Patient's blood pressure presently 207/76. Patient denies any chest pain symptoms at this time. Patient has not had any of her blood pressure medications today with the exception of her lisinopril. Consulted with Dr. Malloy regarding patient's medication list. Dr. Malloy advises continuing patient 's Lasix 20 mg daily, increasing hydralazine to 50 mg 3 times daily, continuing isosorbide 60 ER daily, lisinopril [address] Malloy advises discontinuing metoprolol and changing patient to carvedilol 25 mg twice a day in addition to adding chlorthalidone [address] Malloy recommends discontinuing nifedipine 90 and switching patient to Norvasc [address] Malloy states that he will evaluate patient in the office later this afternoon. Patient denies any chest pain at this time and is without complaints. Repeat troponin is negative. The patients symptoms are not suggestive of pulmonary embolus, cardiac ischemia, aortic dissection, or other serious etiology. Given the extremely low risk of these diagnoses for the test in evaluation for these possibilities does not appear to be indicated at this time. Patient has been instructed to return if the symptoms worsen or change in any way. (DIETER ACOSTA) - Vital Signs Vital signs: Temp Pulse Resp BP Pulse Ox 98.5 F 60 14 207/76 H 100 12/12/17 02:54 12/12/17 02:54 12/12/17 09:06 12/12/17 09:06 12/12/17 09:06 - Laboratory Laboratory results interpreted by me: 12/12/17 12/12/17 12/12/17 03:30 03:30 03:30 RDW 14.3 H BUN 26 H Creatinine 1.63 H Est GFR ( Amer) 37 L Est GFR (Non-Af Amer) 30 L NT-Pro-B Natriuret Pep 2230 H Discharge <DASH NELSON - Last Filed: 12/12/17 07:18> <DIETER ACOSTA - Last Filed: 12/12/17 11:41> - Discharge Clinical Impression: HTN (hypertension) Qualifiers: Hypertension type: unspecified Qualified Code(s): I10 - Essential (primary) hypertension Chest pain Qualifiers: Chest pain type: unspecified Qualified Code(s): R07.9 - Chest pain, unspecified Condition: Stable Disposition: HOME, SELF-CARE Instructions: High Blood Pressure, Requiring Treatment (OM) Additional Instructions: Return immediately for any new or worsening symptoms Followup with your primary care provider, call tomorrow to make a followup appointment Follow-up with Dr. Malloy this afternoon for further evaluation. Continue taking your Lasix, isosorbide, lisinopril as previously prescribed. You will change your dose of hydralazine to 50 mg orally 3 times a day. You will stop taking metoprolol and nifedipine. You will have new medications including carvedilol, chlorthalidone and Norvasc to take. Prescriptions: Amlodipine Besylate [Norvasc 10 mg Tablet] 10 mg PO DAILY #30 tablet Carvedilol [Coreg] 1 tab PO Q12 #60 tab Chlorthalidone [Chlorthalidone 25 mg Tablet] 1 tab PO DAILY #30 tablet Hydralazine HCl 50 mg PO TID #90 tablet Referrals: GUY WONG MD [Primary Care Provider] - Follow up as needed RONALD MALLOY MD [ACTIVE STAFF] - 12/12/17
[2017-12-12] MEDS ORDERED: ACETAMINOPHEN 325 MG TABLET PO ONE (03:53)
[2017-12-12 04:01] LABS: ABSOLUTE EOSINOPHILS # (AUTO) 0.2 10^3/uL (0.0-0.6); ABSOLUTE LYMPHOCYTES (AUTO) 1.3 10^3/uL (0.5-4.7); ABSOLUTE MONOCYTES (AUTO) 0.6 10^3/uL (0.1-1.4); ABSOLUTE NEUT (AUTO) 4.3 10^3/uL (1.7-8.2); BASOPHILS % (AUTO) 0.4 % (0-2); EOSINOPHILS % (AUTO) 2.5 % (0-6); HEMATOCRIT 36.9 % (36.0-47.0); HEMOGLOBIN 12.4 g/dL (12.0-15.5); LYMPHOCYTES % (AUTO) 20.3 % (13-45); MEAN CORPUSCULAR HEMOGLOBIN 29.8 pg (27.0-33.4); MEAN CORPUSCULAR HGB CONC 33.6 g/dL (32.0-36.0); MEAN CORPUSCULAR VOLUME 89 fl (80-97); MONOCYTES % (AUTO) 9.3 % (3-13); PLATELET COUNT 294 10^3/uL (150-450); RED BLOOD COUNT 4.17 10^6/uL (3.72-5.28); RED CELL DISTRIBUTION WIDTH 14.3 % (11.5-14.0); SEGMENTED NEUTROPHILS % (AUTO) 67.5 % (42-78); TOTAL CELLS COUNTED % (AUTO) 100 %; WHITE BLOOD COUNT 6.4 10^3/uL (4.0-10.5)
[2017-12-12 04:16] LABS: ANION GAP 7 (5-19); BLOOD UREA NITROGEN 26 mg/dL (7-20); CALCIUM 9.6 mg/dL (8.4-10.2); CARBON DIOXIDE 29 mmol/L (22-30); CHLORIDE 102 mmol/L (98-107); GLUCOSE 100 mg/dL (75-110); POTASSIUM 4.3 mmol/L (3.6-5.0); SODIUM 137.5 mmol/L (137-145)
--- NOTE | 2017-12-12 05:14 | RADIOLOGY REPORT (SQ) ---
EXAM DESCRIPTION: CT HEAD WITHOUT IV CONTRAST COMPLETED DATE/TME: 12/12/2017 03:45 CLINICAL HISTORY: hypertension, headache, blurry vision COMPARISON: None available TECHNIQUE: Axial CT of the head obtained from the skull apex to the skull base without contrast. FINDINGS: No acute intracranial hemorrhage identified. No mass, mass effect, shift of the midline, abnormal extra-axial fluid collection or CT evidence of acute ischemic change identified. The ventricular system and sulcal spaces are mildly enlarged compatible with mild cerebral atrophy. Confluent areas of hypodensity throughout the supratentorial white matter are nonspecific and may be related to chronic small vessel ischemic change. The visualized paranasal sinuses and the mastoids are clear. No skull fracture identified. Visualized orbits and globes are unremarkable. Atherosclerotic calcification of the intracranial internal carotid arteries. DLP: 1017.17 mGy-cm IMPRESSION: 1. No acute intracranial abnormality by CT criteria. This exam was performed according to our departmental dose-optimization program, which includes automated exposure control, adjustment of the mA and/or kV according to patient size and/or use of iterative reconstruction technique.
[2017-12-12 05:31] LABS: NT PRO BNP 2230 pg/mL (<450); TROPONIN I < 0.012 ng/mL
[2017-12-12] MEDS ORDERED: LISINOPRIL 10 MG TABLET PO ONE (05:59)
[2017-12-12] MEDS ORDERED: ASPIRIN 81 MG TABLET, CHEWABLE PO ONE (06:04)
--- NOTE | 2017-12-12 07:05 | RADIOLOGY REPORT (SQ) ---
EXAM DESCRIPTION: X-ray single view chest CLINICAL HISTORY: 82 years Female, chest tightness COMPARISON: Prior chest CT performed on 11/26/2017 and prior chest x-ray performed on 11/25/2017 TECHNIQUE: Single portable view of the chest performed on 12/12/2017 at 5:06 AM FINDINGS: The lungs are hyperinflated. No focal airspace process is identified. There is no evidence of a pneumothorax. The cardiac silhouette is normal in size and configuration. The mediastinal contours are normal. There is stable prominence of the right main pulmonary artery. No acute osseous abnormality is identified. No focal soft tissue abnormalities are seen. Again demonstrated is a moderate hiatal hernia. IMPRESSION: 1. No acute intrathoracic disease. 2. Moderate hiatal hernia. 3. Stable prominence of the right main pulmonary artery.
[2017-12-12] MEDS ORDERED: FUROSEMIDE 20 MG TABLET PO ONE ×2 (09:30→12:00)
[2017-12-12] MEDS ORDERED: ISOSORBIDE MONONITRATE 60 MG TAB.ER.24H PO ONE ×2 (09:30→12:00)
[2017-12-12] MEDS ORDERED: AMLODIPINE BESYLATE 10 MG TABLET PO ONE (09:31)
[2017-12-12] MEDS ORDERED: CHLORTHALIDONE 25 MG TABLET PO ONE (09:31)
[2017-12-12] MEDS ORDERED: CARVEDILOL 12.5 MG TABLET PO ONE (09:31)
[2017-12-12] MEDS ORDERED: HYDRALAZINE HCL 50 MG TABLET PO ONE (09:33)
--- NOTE | 2017-12-12 11:43 | EKG REPORT ---
SEVERITY:- ABNORMAL ECG - SINUS RHYTHM RIGHT BUNDLE BRANCH BLOCK LEFT VENTRICULAR HYPERTROPHY : Confirmed by: Estefany Degroot MD 12-Dec-2017 11:42:35
[2017-12-12 12:00] VITALS: BP 188/82
== END 2017-12-12 12:00 | disposition home or self-care (01) ==
LOC: ER 00:19
DX: I10 Essential (primary) hypertension (principal); R07.9 Chest pain, unspecified; R51 Headache
CPT/HCPCS: 93005; 99285; 36415; 85025; 80048; 84484; 83880; 71045; 70450; 93010; A9270 ×9

== ENCOUNTER 2017-12-12 13:02 | Observation (INO) | payer MEDICARE, OTHER ==
[2017-12-12 13:56] LABS: ABSOLUTE EOSINOPHILS # (AUTO) 0.1 10^3/uL (0.0-0.6); ABSOLUTE LYMPHOCYTES (AUTO) 0.8 10^3/uL (0.5-4.7); ABSOLUTE MONOCYTES (AUTO) 0.3 10^3/uL (0.1-1.4); BASOPHILS % (AUTO) 0.8 % (0-2); EOSINOPHILS % (AUTO) 2.6 % (0-6); HEMATOCRIT 35.8 % (36.0-47.0); HEMOGLOBIN 11.9 g/dL (12.0-15.5); LYMPHOCYTES % (AUTO) 19.7 % (13-45); MEAN CORPUSCULAR HEMOGLOBIN 29.2 pg (27.0-33.4); MEAN CORPUSCULAR HGB CONC 33.1 g/dL (32.0-36.0); MEAN CORPUSCULAR VOLUME 88 fl (80-97); MONOCYTES % (AUTO) 6.6 % (3-13); PLATELET COUNT 289 10^3/uL (150-450); RED BLOOD COUNT 4.06 10^6/uL (3.72-5.28); RED CELL DISTRIBUTION WIDTH 14.2 % (11.5-14.0); SEGMENTED NEUTROPHILS % (AUTO) 70.3 % (42-78); TOTAL CELLS COUNTED % (AUTO) 100 %; WHITE BLOOD COUNT 4.3 10^3/uL (4.0-10.5)
[2017-12-12 14:18] LABS: ALANINE AMINOTRANSFERASE 17 U/L (9-52); ALBUMIN 3.7 g/dL (3.5-5.0); ALKALINE PHOSPHATASE 80 U/L (38-126); ANION GAP 8 (5-19); ASPARTATE AMINO TRANSFERASE 20 U/L (14-36); BILIRUBIN,DIRECT 0.3 mg/dL (0.0-0.4); BILIRUBIN,TOTAL 0.3 mg/dL (0.2-1.3); BLOOD UREA NITROGEN 24 mg/dL (7-20); CALCIUM 9.6 mg/dL (8.4-10.2); CARBON DIOXIDE 26 mmol/L (22-30); CHLORIDE 105 mmol/L (98-107); GLUCOSE 139 mg/dL (75-110); POTASSIUM 4.4 mmol/L (3.6-5.0); SODIUM 139.2 mmol/L (137-145); TOTAL PROTEIN 6.5 g/dL (6.3-8.2)
--- NOTE | 2017-12-12 15:37 | ER Document Report ---
ED General - General Chief Complaint: Weakness Stated Complaint: POSSIBLE SYNCOPE Time Seen by Provider: 12/12/17 13:31 TRAVEL OUTSIDE OF THE [place] IN LAST 30 DAYS: No - HPI Patient complains to provider of: Syncope Notes: Patient coming in for evaluation of syncope. Patient was recently released from the ER after being evaluated for elevated blood pressure. Patient's pain members have been monitoring patient's blood pressure showing that has been increasing in the afternoon and early evening hours. Patient case was discussed with her mapping pilot recommend the administration of hydralazine 50 mg carvedilol 25 mg chlorthalidone 25 mg and Norvasc 10 mg this was administered patient patient was discharged to go to his office in the parking lot patient was found to have a syncopal episode upon EMS arrival blood pressure was in the 60s. Upon my evaluation patient now alert states she is feeling otherwise weak and unwell. Patient states she is also hungry. Patient blood pressure upon my evaluation is 100 systolic. Patient denies any chest pain at this time no head pain no abdominal pain patient otherwise also looks to be neurologically intact moving all 4 extremities. - Related Data Allergies/Adverse Reactions: promethazine HCl [From Phenergan] Allergy (Verified 12/12/17 13:03) Past Medical History - Social History Smoking Status: Never Smoker Chew tobacco use (# tins/day): No Frequency of alcohol use: None Drug Abuse: None Family History: Hypertension Patient has suicidal ideation: No Patient has homicidal ideation: No - Past Medical History Cardiac Medical History: Reports: Hx Congestive Heart Failure, Hx Coronary Artery Disease, Hx Hypercholesterolemia, Hx Hypertension Denies: Hx Heart Attack Pulmonary Medical History: Reports: Hx COPD Denies: Hx Asthma, Hx Bronchitis, Hx Pneumonia Neurological Medical History: Denies: Hx Cerebrovascular Accident, Hx Seizures Renal/ Medical History: Denies: Hx Peritoneal Dialysis Malignancy Medical History: Reports: Hx Breast Cancer, Hx Lung Cancer GI Medical History: Reports: Hx Hiatal Hernia, Hx Ulcer Musculoskeletal Medical History: Denies Hx Arthritis Psychiatric Medical History: Denies: Hx Depression Past Surgical History: Reports: Hx Abdominal Surgery, Hx Breast Surgery - Left mastectomy for breast cancer, Hx Cardiac Catheterization, Hx Cardiac Surgery - stent 2006, Hx Section, Hx Coronary Stent, Hx Gynecologic Surgery - c- section, Hx Hysterectomy, Hx Mastectomy - Left - Immunizations Hx Diphtheria, Pertussis, Tetanus Vaccination: Yes Review of Systems - Review of Systems Constitutional: No symptoms reported EENT: No symptoms reported Cardiovascular: Syncope Respiratory: No symptoms reported Gastrointestinal: No symptoms reported Genitourinary: No symptoms reported Female Genitourinary: No symptoms reported Musculoskeletal: No symptoms reported Skin: No symptoms reported Hematologic/Lymphatic: No symptoms reported Neurological/Psychological: No symptoms reported -: Yes All other systems reviewed and negative Physical Exam - Vital signs Vitals: Temp Pulse Resp BP Pulse Ox 98.1 F 58 L 18 72/44 L 97 12/12/17 13:22 12/12/17 13:22 12/12/17 13:22 12/12/17 13:22 12/12/17 13:22 Interpretation: Hypotensive - General General appearance: Appears well, Alert - HEENT Head: Normocephalic, Atraumatic Eyes: Normal Pupils: PERRL - Respiratory Respiratory status: No respiratory distress Chest status: Nontender Breath sounds: Normal Chest palpation: Normal - Cardiovascular Rhythm: Regular Heart sounds: Normal auscultation Murmur: No - Abdominal Inspection: Normal Distension: No distension Bowel sounds: Normal Tenderness: Nontender Organomegaly: No organomegaly - Back Back: Normal, Nontender - Extremities General upper extremity: Normal inspection, Nontender, Normal color, Normal ROM , Normal temperature General lower extremity: Normal inspection, Nontender, Normal color, Normal ROM , Normal temperature. No: Luca's sign - Neurological Neuro grossly intact: Yes Cognition: Normal Orientation: AAOx4 [place] Coma Scale Eye Opening: Spontaneous Félix Coma Scale Verbal: Oriented [place] Coma Scale Motor: Obeys Commands Félix Coma Scale Total: 15 Speech: Normal Motor strength normal: LUE, RUE, LLE, RLE Sensory: Normal - Psychological Associated symptoms: Normal affect, Normal mood - Skin Skin Temperature: Warm Skin Moisture: Dry Skin Color: Normal Course - Re-evaluation Re-evalutation: 12/12/17 18:46 During the patient's visit after a small fluid bolus patient's blood pressure is now normotensive. Patient states that she still currently does feel weak however is moving all 4 extremities. Patient more likely has syncopal episode due to medications given for her blood pressure upon discharge from the ER. Discussed with mapping pilot as patient does have a history of recent admission for hypertensive urgency emergency recommends admission again for now syncope. Discussed with hospitalist will admit patient to telemetry unit. - Vital Signs Vital signs: Temp Pulse Resp BP Pulse Ox 97.7 F 58 L 27 H 126/55 H 99 12/12/17 18:14 12/12/17 13:22 12/12/17 14:01 12/12/17 14:01 12/12/17 14:01 - Laboratory Result Diagrams: 12/12/17 13:45 12/12/17 13:45 Laboratory results interpreted by me: 12/12/17 12/12/17 13:45 13:45 Hgb 11.9 L Hct 35.8 L RDW 14.2 H BUN 24 H Creatinine 1.60 H Est GFR ( Amer) 37 L Est GFR (Non-Af Amer) 31 L Glucose 139 H Discharge - Discharge Clinical Impression: MEHDI (acute kidney injury), Transient hypotension Syncope Qualifiers: Syncope type: unspecified Qualified Code(s): R55 - Syncope and collapse Condition: Good Disposition: ADMITTED OBSERVATION Admitting Provider: Hospitalist - [facility] Unit Admitted: Telemetry
[2017-12-12] MEDS ORDERED: ACETAMINOPHEN 325 MG TABLET PO PRN (18:40)
[2017-12-12] MEDS ORDERED: ONDANSETRON 4 MG TAB.RAPDIS PO PRN (18:40)
[2017-12-12] MEDS ORDERED: ALBUTEROL SULFATE HFA (90 MCG/PUFF) 8 GM MDI (1 MDI/ER DISP) IH PRN (18:47)
--- NOTE | 2017-12-12 18:58 | PDOC H&P ---
History of Present Illness Admission Date/PCP: 12/12/17 16:00 GUY WONG MD Patient complains of: syncope History of Present Illness: BERNABE DORMAN is a 82 year old female past medical history of hypertension dyslipidemia COPD remote history of lung cancer status post partial right pneumonectomy. Patient was admitted on 11/26/2017 for hypertensive urgency. Was admitted today for hypertensive urgency in ED where as per ED physician's conversation she received 50 of hydralazine 25 Lasix 25 of hydrochlorothiazide and Norvasc 10 mg. Patient was discharged to follow-up with Dr. Malloy her filling machine set up mechanic. She said that she remembers that she went to [facility] after that she was going to see Dr. Malloy her filling machine set up mechanic and states she does not remember what happened after that but he states that her daughter had told her that she became less responsive and had passed out. Patient said that her daughter said that she did not have any seizure she did not have any head trauma. Patient says when she regained consciousness she was alert was not confused. Initial examination KENNY's show that patient had a blood pressure of 72/45. She was given IV fluids and her blood pressure returned to normal. Upon my examination patient is comfortably resting in the bed very pleasant and cooperating with physical examination. Denies any shortness of breath, chest pain, nausea, vomiting, any weakness, numbness, tingling, Past Medical History Cardiac Medical History: Reports: Congestive Heart Failure, Coronary Artery Disease, Hyperlipidema, Hypertension Denies: Myocardial Infarction Pulmonary Medical History: Reports: Chronic Obstructive Pulmonary Disease (COPD) Denies: Asthma, Bronchitis, Pneumonia Neurological Medical History: Denies: Seizures Malignancy Medical History: Reports: Breast Cancer, Lung Cancer GI Medical History: Reports: Hiatal Hernia Musculoskeltal Medical History: Denies: Arthritis Psychiatric Medical History: Denies: Depression Hematology: Reports: Anemia Past Surgical History Past Surgical History: Reports: Cardiac Catheterization, Section, Coronary Stent, Hysterectomy, Mastectomy - Left Social History Smoking Status: Never Smoker Frequency of Alcohol Use: None Hx Recreational Drug Use: No Drugs: None Hx Prescription Drug Abuse: No Family History Family History: Hypertension Medication/Allergy Home Medications: Albuterol Sulfate [Proair HFA] 2 puff IH Q4HP PRN 12/12/17 Amlodipine Besylate [Norvasc 10 mg Tablet] 10 mg PO DAILY 12/12/17 Aspirin [Adult Low Dose Aspirin EC] 81 mg PO DAILY 12/12/17 Carbamazepine [Tegretol Xr 200 mg Tab.sr] 200 mg PO QAM 12/12/17 Carbamazepine [Tegretol Xr 200 mg Tab.sr] 400 mg PO QPM 12/12/17 Chlorthalidone [Chlorthalidone 25 mg Tablet] 25 mg PO DAILY 12/12/17 Cyanocobalamin (Vitamin B-12) [Vitamin B-12 1000 mcg Tablet] 1,000 mcg PO DAILY 12/12/17 Donepezil HCl [Aricept 5 mg Tablet] 5 mg PO DAILY 12/12/17 Furosemide [Lasix 20 mg Tablet] 40 mg PO QAM 12/12/17 Hydralazine HCl [Apresoline 25 mg Tablet] 25 mg PO Q6 12/12/17 Isosorbide Mononitrate [Imdur 60 mg Tablet.er] 60 mg PO DAILY 12/12/17 Lisinopril [Zestril] 20 mg PO BID 12/12/17 Metoprolol Succinate [Toprol XL 100 mg Tablet] 100 mg PO DAILY 12/12/17 Nifedipine [Nifedipine ER] 90 mg PO DAILY 12/12/17 Primidone [Mysoline 50 mg Tablet] 50 mg PO BID@0800,1200 12/12/17 Primidone [Mysoline] 100 mg PO QPM 12/12/17 Ranitidine HCl [Zantac] 300 mg PO QHS 12/12/17 Simvastatin [Zocor 20 mg Tablet] 20 mg PO DAILY 12/12/17 Sucralfate [Carafate 1 gm Tablet] 1 gm PO MEALSHS 12/12/17 Allergies/Adverse Reactions: promethazine HCl [From Phenergan] Allergy (Verified 12/12/17 13:03) Review of Systems Constitutional: ABSENT: chills, fever(s), headache(s), weight gain, weight loss Eyes: ABSENT: visual disturbances Ears: ABSENT: hearing changes Cardiovascular: ABSENT: chest pain, dyspnea on exertion, edema, orthropnea, palpitations Respiratory: ABSENT: cough, hemoptysis Gastrointestinal: ABSENT: abdominal pain, constipation, diarrhea, hematemesis, hematochezia, nausea, vomiting Genitourinary: ABSENT: dysuria, hematuria Musculoskeletal: ABSENT: joint swelling Integumentary: ABSENT: rash, wounds Neurological: ABSENT: abnormal gait, abnormal speech, confusion, dizziness, focal weakness, syncope Psychiatric: ABSENT: anxiety, depression, homidical ideation, suicidal ideation Endocrine: ABSENT: cold intolerance, heat intolerance, polydipsia, polyuria Hematologic/Lymphatic: ABSENT: easy bleeding, easy bruising Physical Exam Vital Signs: Temp Pulse Resp BP Pulse Ox 97.7 F 58 L 27 H 126/55 H 99 12/12/17 18:14 12/12/17 13:22 12/12/17 14:01 12/12/17 14:01 12/12/17 14:01 General appearance: PRESENT: no acute distress, well-developed, well-nourished Head exam: PRESENT: atraumatic, normocephalic Eye exam: PRESENT: conjunctiva pink, EOMI, PERRLA. ABSENT: scleral icterus Ear exam: PRESENT: normal external ear exam Mouth exam: PRESENT: moist, tongue midline Neck exam: ABSENT: carotid bruit, JVD, lymphadenopathy, thyromegaly Respiratory exam: PRESENT: clear to auscultation ulysses. ABSENT: rales, rhonchi, wheezes Cardiovascular exam: PRESENT: RRR. ABSENT: diastolic murmur, rubs, systolic murmur Pulses: PRESENT: normal dorsalis pedis pul Vascular exam: PRESENT: normal capillary refill GI/Abdominal exam: PRESENT: normal bowel sounds, soft. ABSENT: distended, guarding, mass, organolmegaly, rebound, tenderness Rectal exam: PRESENT: deferred Extremities exam: PRESENT: full ROM. ABSENT: calf tenderness, clubbing, pedal edema Neurological exam: PRESENT: alert, awake, oriented to person, oriented to place , oriented to time, oriented to situation, CN II-XII grossly intact. ABSENT: motor sensory deficit Psychiatric exam: PRESENT: appropriate affect, normal mood. ABSENT: homicidal ideation, suicidal ideation Skin exam: PRESENT: dry, intact, warm. ABSENT: cyanosis, rash Assessment & Plan - Diagnosis (1) Syncope Qualifiers: Syncope type: unspecified Qualified Code(s): R55 - Syncope and collapse Is this a current diagnosis for this admission?: Yes Plan: Most likely due to overtreatment of hypertensive urgency. Currently normotensive. Hold antihypertensive medications. Resume as clinically appropriate. Continue telemetry. (2) Trigeminal neuralgia Is this a current diagnosis for this admission?: Yes Plan: Restart home medications. (3) HTN (hypertension) Qualifiers: Hypertension type: unspecified Qualified Code(s): I10 - Essential (primary ) hypertension Is this a current diagnosis for this admission?: Yes Plan: Hold antihypertensive medication. Restart once clinically appropriate. (4) Diastolic heart failure Is this a current diagnosis for this admission?: Yes Plan: Euvolemic no sign of any exacerbation. Start beta-steven and MIKE once clinically appropriate. (5) MEHDI (acute kidney injury) Is this a current diagnosis for this admission?: Yes Plan: Most likely prerenal due to recent hypotension. CMP tomorrow monitor vital status. Monitor electrolytes. (6) Transient hypotension Is this a current diagnosis for this admission?: Yes Plan: As problem #1.
[2017-12-12] MEDS ORDERED: ALBUTEROL SULFATE HFA (90 MCG/PUFF) 200 PUFF/8.5 GM MDI IH PRN (19:16)
--- NOTE | 2017-12-12 19:26 | PDOC CONSULTATION ---
Consultation Consult Date: 12/12/17 Attending physician:: DONOVAN GOMEZ Consult reason:: Syncope, hypotension and hypertension, labile blood pressure History of Present Illness Admission Date/PCP: 12/12/17 16:00 GUY WONG MD Patient complains of: Syncope History of Present Illness: BERNABE DORMAN is a 82 year old female past medical history of hypertension dyslipidemia COPD remote history of lung cancer status post partial right pneumonectomy. Patient was admitted on 11/26/2017 for hypertensive urgency. Was admitted today for hypertensive urgency in ED where as per ED physician's conversation she received 50 of hydralazine 20 Lasix 25 of hydrochlorothiazide and Norvasc 10 mg. Patient was discharged to follow-up with Dr. Malloy her crepe sole wire brusher. She said that she remembers that she went to [facility] after that she was going to see Dr. Malloy her crepe sole wire brusher and states she does not remember what happened after that but he states that her daughter had told her that she became less responsive and had passed out. Patient said that her daughter said that she did not have any seizure she did not have any head trauma. Patient says when she regained consciousness she was alert was not confused. This history was reviewed and confirmed. Patient's daughter had actually called me yesterday, her blood pressure was noted to be 190/100 at that time. I advised him to give an extra hydralazine and told patient to go to the emergency room should her blood pressure stay over 180 systolic. Subsequently patient came to the ER this morning and was noted to still have extremely high blood pressure. Patient was given hydralazine 50 mg, chlorthalidone 25 mg, Lasix 20 mg and Norvasc 10 mg, in the ER and subsequently in the afternoon she had a near syncopal spell. Patient was in my parking lot when I examine her and was noted to have near syncope. Patient did not completely pass out it seems. There was no loss of bladder and bowel control, patient's color reasonably okay at that time. Past Medical History Cardiac Medical History: Reports: Congestive Heart Failure, Coronary Artery Disease, Hyperlipidema, Hypertension Denies: Myocardial Infarction Pulmonary Medical History: Reports: Chronic Obstructive Pulmonary Disease (COPD) Denies: Asthma, Bronchitis, Pneumonia Neurological Medical History: Denies: Seizures Malignancy Medical History: Reports: Breast Cancer, Lung Cancer GI Medical History: Reports: Hiatal Hernia Musculoskeltal Medical History: Denies: Arthritis Psychiatric Medical History: Denies: Depression Hematology: Reports: Anemia Past Surgical History Past Surgical History: Reports: Cardiac Catheterization, Section, Coronary Stent, Hysterectomy, Mastectomy - Left Social History Information Source: Patient Smoking Status: Never Smoker Frequency of Alcohol Use: None Hx Recreational Drug Use: No Drugs: None Hx Prescription Drug Abuse: No - Advance Directive Resuscitation Status: Full Code Surrogate healthcare decision maker:: Patient's daughter is the surrogate decision-maker Family History Family History: Hypertension Parental Family History Reviewed: Yes Children Family History Reviewed: Yes Sibling(s) Family History Reviewed.: Yes Medication/Allergy Home Medications: Albuterol Sulfate [Proair HFA] 2 puff IH Q4HP PRN 12/12/17 Amlodipine Besylate [Norvasc 10 mg Tablet] 10 mg PO DAILY 12/12/17 Aspirin [Adult Low Dose Aspirin EC] 81 mg PO DAILY 12/12/17 Carbamazepine [Tegretol Xr 200 mg Tab.sr] 200 mg PO QAM 12/12/17 Carbamazepine [Tegretol Xr 200 mg Tab.sr] 400 mg PO QPM 12/12/17 Chlorthalidone [Chlorthalidone 25 mg Tablet] 25 mg PO DAILY 12/12/17 Cyanocobalamin (Vitamin B-12) [Vitamin B-12 1000 mcg Tablet] 1,000 mcg PO DAILY 12/12/17 Donepezil HCl [Aricept 5 mg Tablet] 5 mg PO DAILY 12/12/17 Furosemide [Lasix 20 mg Tablet] 40 mg PO QAM 12/12/17 Hydralazine HCl [Apresoline 25 mg Tablet] 25 mg PO Q6 12/12/17 Isosorbide Mononitrate [Imdur 60 mg Tablet.er] 60 mg PO DAILY 12/12/17 Lisinopril [Zestril] 20 mg PO BID 12/12/17 Metoprolol Succinate [Toprol XL 100 mg Tablet] 100 mg PO DAILY 12/12/17 Nifedipine [Nifedipine ER] 90 mg PO DAILY 12/12/17 Primidone [Mysoline 50 mg Tablet] 50 mg PO BID@0800,1200 12/12/17 Primidone [Mysoline] 100 mg PO QPM 12/12/17 Ranitidine HCl [Zantac] 300 mg PO QHS 12/12/17 Simvastatin [Zocor 20 mg Tablet] 20 mg PO DAILY 12/12/17 Sucralfate [Carafate 1 gm Tablet] 1 gm PO MEALSHS 12/12/17 Allergies/Adverse Reactions: promethazine HCl [From Phenergan] Allergy (Verified 12/12/17 13:03) Review of Systems Review of Systems: Please see history of present illness and past medical history as wall. Constitutional: No fever or chills reported. Head : No recent chronic headaches, recent head injury. Eyes: No recent eye pain, diplopia, redness, discharge, acute visual changes. Ears: No recent chronic ear pain, acute hearing loss, ear discharge. Oral cavity: No recent ulcerations, bleeding, oral cavity discomfort. Neck: No recent acute neck pain reported. Hematologic: No recent easy bruising or bleeding. Lymphatic: No recent lymph node enlargement reported. Cardiovascular system review: See history of present illness. Respiratory system review: No hemoptysis or blood clots in the lungs reported. Mild Shortness of breath on exertion Gastrointestinal system review: Negative for any recent acute hematemesis, melena. Genitourinary system review: No recent acute or chronic hematuria, flank pain, UTI etc. reported. Skin system review: Negative for any recent abnormal bruising, no rash, no pruritus reported. Neurologic: No prior history of strokes, mini strokes, seizure disorder. Psychologic: No history of major psychosis or major depression reported. Musculoskeletal: Minor aches and pains reported. No acute joint swelling reported. Endocrine: No recent polyuria, polydipsia, recent heat or cold intolerance. Physical Exam Vital Signs: Temp Pulse Resp BP Pulse Ox 97.7 F 58 L 27 H 126/55 H 99 12/12/17 18:14 12/12/17 13:22 12/12/17 14:01 12/12/17 14:01 12/12/17 14:01 Exam: GENERAL: well-nourished and in no acute distress. Alert and oriented x3 HEAD: Atraumatic, normocephalic. EYES: Pupils equal round and reactive to light, extraocular movements intact, sclera anicteric, conjunctiva are normal. ENT: TMs normal, nares patent, oropharynx clear without exudates. Moist mucous membranes. No oral ulcerations or bleeding gums noted NECK: supple without lymphadenopathy. Trachea is central. No cervical or axillary lymphadenopathy noted. Carotids are 2+, JVD WNL LUNGS: Respiration seems nonlabored, no significant accessory muscle action noted. Breath sounds clear to auscultation bilaterally and equal noted. No wheezes rales or rhonchi noted. No significant dullness noted on percussion. CHEST: Palpation of the chest wall shows no significant chest wall tenderness. 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 ABDOMEN: Soft, no significant tenderness appreciated, normoactive bowel sounds. No guarding, no rebound. No rigidity noted . No masses appreciated. EXTREMITIES: Pedal pulses are 1-2+, no calf tenderness noted. No clubbing or cyanosis. negative pedal edema noted NEUROLOGICAL: Focused neurological exam showed no significant neurologic deficit. Normal speech, no focal weakness appreciated. PSYCH: Normal mood, normal affect. Judgment and insight within normal limits. SKIN: No significant ecchymosis, skin is noted to be warm. MUSCULOSKELETAL EXAM: No significant acute joint swelling noted. Results EKG Comments: Sinus rhythm, right bundle branch block pattern, LVH, minor secondary ST-T wave changes. Assessment & Plan - Diagnosis (1) Syncope Qualifiers: Syncope type: unspecified Qualified Code(s): R55 - Syncope and collapse Is this a current diagnosis for this admission?: Yes (2) Transient hypotension Is this a current diagnosis for this admission?: Yes (3) CAD (coronary artery disease) Qualifiers: Coronary Disease-Associated Artery/Lesion type: [place] artery [place] vs. transplanted heart: [place] heart Associated angina: with unstable angina Qualified Code(s): I25.110 - Atherosclerotic heart disease of [place] coronary artery with unstable angina pectoris (4) COPD (chronic obstructive pulmonary disease) Qualifiers: COPD type: unspecified COPD Qualified Code(s): J44.9 - Chronic obstructive pulmonary disease, unspecified Is this a current diagnosis for this admission?: Yes (5) Chest pain Qualifiers: Chest pain type: unspecified Qualified Code(s): R07.9 - Chest pain, unspecified Is this a current diagnosis for this admission?: Yes (6) HTN (hypertension) Qualifiers: Hypertension type: essential hypertension Qualified Code(s): I10 - Essential (primary) hypertension Is this a current diagnosis for this admission?: Yes - Notes Notes: At this point, exact etiology of syncope is not clear. Patient will benefit from cardiac monitoring as an outpatient. Recommend starting patient back on same medication patient was discharged on from recent admission on 28 November as blood pressure will allow. It seems there could be an element of anxiety and depression. Recommend low-dose SSRI agent. Syncope: Most likely related to hypotension. Patient probably mildly dehydrated in addition had gotten multiple blood pressure medication. Patient has difficult and labile hypertension. Transient hypotension: This seems to have resolved. Blood pressure now stable. Coronary artery disease: Symptomatically stable without any angina or angina equivalent symptoms. COPD: Currently stable. Continue current management plans. Chest pain: This was adequately evaluated during last admission. Currently this is not a complaint, which is significant for this patient. Hypertension: Medical regimen is being optimized. - Time Time Spent: 30 to 50 Minutes - CODE STATUS was discussed, patient remains full code. Surrogate decision-maker unchanged. Multiple medical problems were addressed. More than 50% of the time spent coordinating care, discussing management plans with involved caregivers. Management plans discussed with involved personnels. Medical decision making was of moderate to high complexity , patient's has multiple comorbidities. Medications reviewed and adjusted accordingly: Yes
[2017-12-12] MEDS: SERTRALINE HCL 50 MG TABLET PO SCH (20:34)
--- NOTE | 2017-12-12 22:26 | EKG REPORT ---
SEVERITY:- ABNORMAL ECG - SINUS RHYTHM RIGHT BUNDLE BRANCH BLOCK : Confirmed by: Estefany Degroot MD 12-Dec-2017 22:25:37
[2017-12-12] MEDS: HEPARIN SOD (PORCINE) 5,000 UNIT/ML 1 ML SYRINGE SUBCUT SCH (22:27)
[2017-12-12] MEDS: SIMVASTATIN 10 MG TABLET PO SCH (22:27)
--- NOTE | 2017-12-12 23:46 | Progress Note ---
Provider Note Provider Note: TELEMEDICINE PHYSICIAN PROGRESS NOTE: D/W RN; medical records reviewed: - Resume Tegretol per home regimen; 200mg PO QAM, 400mg Po QHS CHAVA
[2017-12-13] MEDS: HEPARIN SOD (PORCINE) 5,000 UNIT/ML 1 ML SYRINGE SUBCUT SCH ×3 (05:18→22:01)
[2017-12-13] MEDS: LANSOPRAZOLE 30 MG TAB.RAP.DR PO SCH ×2 (05:18→18:26)
[2017-12-13 06:15] LABS: ABSOLUTE EOSINOPHILS # (AUTO) 0.1 10^3/uL (0.0-0.6); ABSOLUTE LYMPHOCYTES (AUTO) 1.3 10^3/uL (0.5-4.7); ABSOLUTE MONOCYTES (AUTO) 0.4 10^3/uL (0.1-1.4); ABSOLUTE NEUT (AUTO) 3.4 10^3/uL (1.7-8.2); BASOPHILS % (AUTO) 0.4 % (0-2); HEMATOCRIT 34.2 % (36.0-47.0); HEMOGLOBIN 11.6 g/dL (12.0-15.5); LYMPHOCYTES % (AUTO) 24.6 % (13-45); MEAN CORPUSCULAR HEMOGLOBIN 30.1 pg (27.0-33.4); MEAN CORPUSCULAR VOLUME 89 fl (80-97); MONOCYTES % (AUTO) 7.7 % (3-13); PLATELET COUNT 235 10^3/uL (150-450); RED BLOOD COUNT 3.86 10^6/uL (3.72-5.28); RED CELL DISTRIBUTION WIDTH 13.8 % (11.5-14.0); SEGMENTED NEUTROPHILS % (AUTO) 65.3 % (42-78); TOTAL CELLS COUNTED % (AUTO) 100 %; WHITE BLOOD COUNT 5.3 10^3/uL (4.0-10.5)
[2017-12-13 06:30] LABS: ALANINE AMINOTRANSFERASE 26 U/L (9-52); ALBUMIN 3.5 g/dL (3.5-5.0); ALKALINE PHOSPHATASE 94 U/L (38-126); ANION GAP 9 (5-19); ASPARTATE AMINO TRANSFERASE 22 U/L (14-36); BILIRUBIN,DIRECT 0.3 mg/dL (0.0-0.4); BILIRUBIN,TOTAL 0.3 mg/dL (0.2-1.3); BLOOD UREA NITROGEN 23 mg/dL (7-20); CALCIUM 9.4 mg/dL (8.4-10.2); CARBON DIOXIDE 22 mmol/L (22-30); CHLORIDE 108 mmol/L (98-107); GLUCOSE 95 mg/dL (75-110); POTASSIUM 4.2 mmol/L (3.6-5.0); TOTAL PROTEIN 6.1 g/dL (6.3-8.2)
[2017-12-13] MEDS ORDERED: CARBAMAZEPINE 200 MG TAB.SR.12H PO SCH ×2 (08:00→22:00)
[2017-12-13] MEDS: CARBAMAZEPINE 200 MG TAB.SR.12H PO SCH (09:02)
[2017-12-13] MEDS: DONEPEZIL HCL 5 MG TABLET PO SCH (09:14)
[2017-12-13] MEDS: ASPIRIN 81 MG TABLET, ENT COATED PO SCH (09:15)
--- NOTE | 2017-12-13 11:58 | PDOC PROGRESS REPORT ---
Subjective Progress Note for:: 12/13/17 Subjective:: Patient seems to be doing better with gradual improvement. Pt is denying any chest arm or neck discomfort. Patient denying any PND, orthopnea. Patient denied any sustained palpitations, dizziness, syncope, near syncope. Patient denying any fever chills. Patient denying any other significant discomfort. Patient is maintaining sinus rhythm. Review of systems: Rest review of systems negative. Medications: Medications have been reviewed. Reason For Visit: SYNCOPE. HYPOTENSION. Physical Exam Vital Signs: Temp Pulse Resp BP Pulse Ox 97.7 F 75 16 187/80 H 97 12/13/17 08:07 12/13/17 08:07 12/13/17 08:07 12/13/17 08:07 12/13/17 08:07 Intake & Output 12/12/17 12/13/17 12/14/17 06:59 06:59 06:59 Weight 75.1 kg Exam: GENERAL: well-nourished and in no acute distress. Alert and oriented x3. Patient noted to be very anxious about blood pressure control. HEAD: Atraumatic, normocephalic. EYES: Pupils equal round and reactive to light, extraocular movements intact, sclera anicteric, conjunctiva are normal. ENT: TMs normal, nares patent, oropharynx clear without exudates. Moist mucous membranes. No oral ulcerations or bleeding gums noted NECK: supple without lymphadenopathy. Trachea is central. No cervical or axillary lymphadenopathy noted. Carotids are 2+, JVD WNL LUNGS: Respiration seems nonlabored, no significant accessory muscle action noted. Breath sounds clear to auscultation bilaterally and equal noted. No wheezes rales or rhonchi noted. No significant dullness noted on percussion. CHEST: Palpation of the chest wall shows no significant chest wall tenderness. 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 ABDOMEN: Soft, no significant tenderness appreciated, normoactive bowel sounds. No guarding, no rebound. No rigidity noted . No masses appreciated. EXTREMITIES: Pedal pulses are 1-2+, no calf tenderness noted. No clubbing or cyanosis. negative pedal edema noted NEUROLOGICAL: Focused neurological exam showed no significant neurologic deficit. Normal speech, no focal weakness appreciated. PSYCH: Normal mood, normal affect. Judgment and insight within normal limits. SKIN: No significant ecchymosis, skin is noted to be warm. MUSCULOSKELETAL EXAM: No significant acute joint swelling noted. Results Laboratory Results: 12/13/17 05:41 12/13/17 05:41 12/13/17 12/13/17 05:41 05:41 WBC 5.3 RBC 3.86 Hgb 11.6 L Hct 34.2 L MCV 89 MCH 30.1 MCHC 34.0 RDW 13.8 Plt Count 235 Seg Neutrophils % 65.3 Lymphocytes % 24.6 Monocytes % 7.7 Eosinophils % 2.0 Basophils % 0.4 Absolute Neutrophils 3.4 Absolute Lymphocytes 1.3 Absolute Monocytes 0.4 Absolute Eosinophils 0.1 Absolute Basophils 0.0 Sodium 139.0 Potassium 4.2 Chloride 108 H Carbon Dioxide 22 Anion Gap 9 BUN 23 H Creatinine 1.38 H Est GFR ( Amer) 44 L Est GFR (Non-Af Amer) 37 L Glucose 95 Calcium 9.4 Total Bilirubin 0.3 AST 22 ALT 26 Alkaline Phosphatase 94 Total Protein 6.1 L Albumin 3.5 Assessment & Plan - Diagnosis (1) Syncope Qualifiers: Syncope type: unspecified Qualified Code(s): R55 - Syncope and collapse Is this a current diagnosis for this admission?: Yes (2) Transient hypotension Is this a current diagnosis for this admission?: Yes (3) CAD (coronary artery disease) Qualifiers: Coronary Disease-Associated Artery/Lesion type: [place] artery [place] vs. transplanted heart: [place] heart Associated angina: with unstable angina Qualified Code(s): I25.110 - Atherosclerotic heart disease of [place] coronary artery with unstable angina pectoris (4) COPD (chronic obstructive pulmonary disease) Qualifiers: COPD type: unspecified COPD Qualified Code(s): J44.9 - Chronic obstructive pulmonary disease, unspecified Is this a current diagnosis for this admission?: Yes (5) Chest pain Qualifiers: Chest pain type: unspecified Qualified Code(s): R07.9 - Chest pain, unspecified Is this a current diagnosis for this admission?: Yes (6) HTN (hypertension) Qualifiers: Hypertension type: essential hypertension Qualified Code(s): I10 - Essential (primary) hypertension Is this a current diagnosis for this admission?: Yes - Notes Notes: Have placed patient on carvedilol 25 mg p.o. every 12. Also added Norvasc 10 mg p.o. daily. Recommend manual blood pressure check in this lady. Syncope: Most likely related to hypotension. Patient probably mildly dehydrated in addition had gotten multiple blood pressure medication. Patient has difficult and labile hypertension. Transient hypotension: This seems to have resolved. Blood pressure now stable. Coronary artery disease: Symptomatically stable without any angina or angina equivalent symptoms. COPD: Currently stable. Continue current management plans. Chest pain: This was adequately evaluated during last admission. Currently this is not a complaint, which is significant for this patient. Hypertension: Medical regimen is being optimized. - Time Time with patient: Greater than 35 minutes - CODE STATUS was discussed, patient remains full code. Surrogate decision-maker unchanged. Multiple medical problems were addressed. More than 50% of the time spent coordinating care, discussing management plans with involved caregivers. Management plans discussed with involved personnels. Medical decision making was of moderate to high complexity, patient's has multiple comorbidities. Medications reviewed and adjusted accordingly: Yes
[2017-12-13] MEDS: CARVEDILOL 12.5 MG TABLET PO SCH ×2 (13:11→22:00)
[2017-12-13] MEDS: AMLODIPINE BESYLATE 5 MG TABLET PO SCH (13:12)
[2017-12-13] MEDS ORDERED: PRIMIDONE 50 MG TABLET PO SCH (18:00)
--- NOTE | 2017-12-13 18:21 | PDOC PROGRESS REPORT ---
Subjective Progress Note for:: 12/13/17 Subjective:: No adverse events overnight. No new complaints. She says she feels fine. Her blood pressures have trended back up we decided to restart some of her medications today. Reason For Visit: SYNCOPE. HYPOTENSION. Physical Exam Vital Signs: Temp Pulse Resp BP Pulse Ox 97.4 F 63 16 174/68 H 99 12/13/17 16:08 12/13/17 16:08 12/13/17 16:08 12/13/17 16:08 12/13/17 16:08 Intake & Output 12/12/17 12/13/17 12/14/17 06:59 06:59 06:59 Intake Total 337 Balance 337 Weight 75.1 kg General appearance: PRESENT: no acute distress, cooperative, disheveled Respiratory exam: PRESENT: clear to auscultation ulysses, symmetrical, unlabored. ABSENT: accessory muscle use, crackles, prolonged expiratory phas, rales, rhonchi, stridor, tachypnea, wheezes Cardiovascular exam: PRESENT: RRR, +S1, +S2. ABSENT: diastolic murmur, systolic murmur GI/Abdominal exam: PRESENT: normal bowel sounds, soft. ABSENT: guarding, rebound, tenderness Extremities exam: ABSENT: joint swelling, pedal edema Musculoskeletal exam: ABSENT: deformity, tenderness Neurological exam: PRESENT: alert, awake, oriented to person, oriented to place , oriented to time Psychiatric exam: PRESENT: appropriate affect, normal mood Skin exam: PRESENT: dry, warm Results Laboratory Results: 12/13/17 05:41 12/13/17 05:41 12/13/17 12/13/17 05:41 05:41 WBC 5.3 RBC 3.86 Hgb 11.6 L Hct 34.2 L MCV 89 MCH 30.1 MCHC 34.0 RDW 13.8 Plt Count 235 Seg Neutrophils % 65.3 Lymphocytes % 24.6 Monocytes % 7.7 Eosinophils % 2.0 Basophils % 0.4 Absolute Neutrophils 3.4 Absolute Lymphocytes 1.3 Absolute Monocytes 0.4 Absolute Eosinophils 0.1 Absolute Basophils 0.0 Sodium 139.0 Potassium 4.2 Chloride 108 H Carbon Dioxide 22 Anion Gap 9 BUN 23 H Creatinine 1.38 H Est GFR ( Amer) 44 L Est GFR (Non-Af Amer) 37 L Glucose 95 Calcium 9.4 Total Bilirubin 0.3 AST 22 ALT 26 Alkaline Phosphatase 94 Total Protein 6.1 L Albumin 3.5 Assessment & Plan - Diagnosis (1) MEHDI (acute kidney injury) Is this a current diagnosis for this admission?: Yes Plan: Resolved (2) Transient hypotension Is this a current diagnosis for this admission?: Yes Plan: Resolved. She is actually hypertensive now. We are going to start back some of her medications but not all of them. She says her blood pressure fairly labile, so we may have to try to get her blood pressure under a reasonable degree of control so that there is room for it to fluctuate up or down. - Time Time Spent with patient: 25-34 minutes
[2017-12-13] MEDS: SERTRALINE HCL 50 MG TABLET PO SCH (21:57)
[2017-12-13] MEDS: SIMVASTATIN 10 MG TABLET PO SCH (22:01)
[2017-12-14] MEDS: HEPARIN SOD (PORCINE) 5,000 UNIT/ML 1 ML SYRINGE SUBCUT SCH (05:17)
[2017-12-14] MEDS: LANSOPRAZOLE 30 MG TAB.RAP.DR PO SCH (05:18)
[2017-12-14] MEDS: CARBAMAZEPINE 200 MG TAB.SR.12H PO SCH (08:44)
[2017-12-14] MEDS: SERTRALINE HCL 50 MG TABLET PO SCH (09:31)
[2017-12-14] MEDS: CARVEDILOL 12.5 MG TABLET PO SCH (09:31)
[2017-12-14] MEDS: ASPIRIN 81 MG TABLET, ENT COATED PO SCH (09:32)
[2017-12-14] MEDS: AMLODIPINE BESYLATE 5 MG TABLET PO SCH (09:32)
[2017-12-14 11:33] VITALS: BP 167/69
--- NOTE | 2017-12-14 12:18 | PDOC DISCHARGE SUMMARY ---
General - Admit/Disc Date/PCP Admission Date/Primary Care Provider: 12/12/17 16:00 GUY WONG MD Discharge Date: 12/14/17 - Discharge Diagnosis (1) MEHDI (acute kidney injury) Is this a current diagnosis for this admission?: Yes Summary: Resolved. Probably from transient hypotension. (2) Transient hypotension Is this a current diagnosis for this admission?: Yes Summary: Suspected to be due to overmedication. It looks like she was taking multiple drugs in the same class at the same time. We got her only on a couple of medications. She says her blood pressures are somewhat "up and down "so we got her in a fairly stable range and further titration can be done as an outpatient. - Additional Information Resuscitation Status: Full Code Discharge Diet: As Tolerated, Other (Comments) Discharge Activity: Activity As Tolerated Home Medications: Albuterol Sulfate [Proair HFA] 2 puff IH Q4HP PRN 12/12/17 Amlodipine Besylate [Norvasc 10 mg Tablet] 10 mg PO DAILY 12/12/17 Aspirin [Adult Low Dose Aspirin EC] 81 mg PO DAILY 12/12/17 Carbamazepine [Tegretol Xr 200 mg Tab.sr] 400 mg PO QPM 12/12/17 Cyanocobalamin (Vitamin B-12) [Vitamin B-12 1000 mcg Tablet] 1,000 mcg PO DAILY 12/12/17 Donepezil HCl [Aricept 5 mg Tablet] 5 mg PO DAILY 12/12/17 Furosemide [Lasix 20 mg Tablet] 40 mg PO QAM 12/12/17 Metoprolol Succinate [Toprol XL 100 mg Tablet] 100 mg PO DAILY 12/12/17 Primidone [Mysoline 50 mg Tablet] 50 mg PO BID@0800,1200 12/12/17 Primidone [Mysoline] 100 mg PO QPM 12/12/17 Ranitidine HCl [Zantac] 300 mg PO QHS 12/12/17 Simvastatin [Zocor 20 mg Tablet] 20 mg PO DAILY 12/12/17 Sucralfate [Carafate 1 gm Tablet] 1 gm PO MEALSHS 12/12/17 Lisinopril [Zestril] 20 mg PO DAILY #0 12/14/17 History of Present Illness History of Present Illness: BERNABE DORMAN is a 82 year old female past medical history of hypertension dyslipidemia COPD remote history of lung cancer status post partial right pneumonectomy. Patient was admitted on 11/26/2017 for hypertensive urgency. Was admitted today for hypertensive urgency in ED where as per ED physician's conversation she received 50 of hydralazine 25 Lasix 25 of hydrochlorothiazide and Norvasc 10 mg. Patient was discharged to follow-up with Dr. Malloy her programmer numerical control. She said that she remembers that she went to [facility] after that she was going to see Dr. Malloy her programmer numerical control and states she does not remember what happened after that but he states that her daughter had told her that she became less responsive and had passed out. Patient said that her daughter said that she did not have any seizure she did not have any head trauma. Patient says when she regained consciousness she was alert was not confused. Initial examination KENNY's show that patient had a blood pressure of 72/45. She was given IV fluids and her blood pressure returned to normal. Upon my examination patient is comfortably resting in the bed very pleasant and cooperating with physical examination. Denies any shortness of breath, chest pain, nausea, vomiting, any weakness, numbness, tingling. Hospital Course Hospital Course: She was brought in and taken off her antihypertensives and given some IV fluids and her blood pressures have since stabilized. Her kidney functions have returned normal. She was on 2 different calcium channel blockers and 2 different diuretics, as well as a long-acting nitrate and hydralazine, in addition to her beta-steven and MIKE inhibitor. We have since decided to put her back on her metoprolol, her amlodipine, and a reduced dose of her lisinopril. She was also checking her blood pressure several times a day at home, and I actually encouraged her to stop doing that as I feel like this would just drive up her anxiety. I recommended that she go home on the medications we send her on because her pressures have been consistently in the 150s systolic on the regimen we have had her on now. I told her that she can go by her primary care doctor's office next week and have her blood pressure checked, and if any further titration of her blood pressure medication regimen needs to be done a can happen at that point. She wanted me to keep her here for several more days, but there is no medical reason to do so. Her labs and examination were reassuring and she was discharged today in good condition. Physical Exam Vital Signs: Temp Pulse Resp BP Pulse Ox 98.0 F 67 18 167/69 H 99 12/14/17 11:26 12/14/17 11:26 12/14/17 11:26 12/14/17 11:26 12/14/17 11:26 Intake & Output 12/13/17 12/14/17 12/15/17 06:59 06:59 06:59 Intake Total 337 450 Balance 337 450 Weight 75.1 kg General appearance: PRESENT: no acute distress, cooperative, disheveled Respiratory exam: PRESENT: clear to auscultation ulysses, symmetrical, unlabored. ABSENT: accessory muscle use, crackles, prolonged expiratory phas, rales, rhonchi, stridor, tachypnea, wheezes Cardiovascular exam: PRESENT: RRR, +S1, +S2. ABSENT: diastolic murmur, systolic murmur GI/Abdominal exam: PRESENT: normal bowel sounds, soft. ABSENT: guarding, rebound, tenderness Extremities exam: ABSENT: joint swelling, pedal edema Musculoskeletal exam: ABSENT: deformity, tenderness Neurological exam: PRESENT: alert, awake, oriented to person, oriented to place , oriented to time Psychiatric exam: PRESENT: appropriate affect, normal mood Skin exam: PRESENT: dry, warm Results Laboratory Results: 12/13/17 05:41 12/13/17 05:41 Qualifiers - * PATIENT BEING DISCHARGED WITH ANY OF THE FOLLOWING DIAGNOSIS: No
[2017-12-14] MEDS: DONEPEZIL HCL 5 MG TABLET PO SCH (13:25)
--- NOTE | 2017-12-14 19:37 | PDOC PROGRESS REPORT ---
Subjective Progress Note for:: 12/14/17 Subjective:: Patient seen on morning rounds. Patient is concerned about blood pressure control. She is noted to be visibly very anxious. Patient seems to be doing better with gradual improvement. Pt is denying any chest arm or neck discomfort. Patient denying any PND, orthopnea. Patient denied any sustained palpitations, dizziness, syncope, near syncope. Patient denying any fever chills. Patient denying any other significant discomfort. Patient is maintaining sinus rhythm. Review of systems: Rest review of systems negative. Medications: Medications have been reviewed. Reason For Visit: SYNCOPE. HYPOTENSION. Physical Exam Vital Signs: Temp Pulse Resp BP Pulse Ox 98.0 F 67 18 167/69 H 99 12/14/17 11:26 12/14/17 11:26 12/14/17 11:26 12/14/17 11:26 12/14/17 11:26 Intake & Output 12/13/17 12/14/17 12/15/17 06:59 06:59 06:59 Intake Total 337 450 Balance 337 450 Weight 75.1 kg Exam: GENERAL: well-nourished and in no acute distress. Alert and oriented x3 HEAD: Atraumatic, normocephalic. EYES: Pupils equal round and reactive to light, extraocular movements intact, sclera anicteric, conjunctiva are normal. ENT: TMs normal, nares patent, oropharynx clear without exudates. Moist mucous membranes. No oral ulcerations or bleeding gums noted NECK: supple without lymphadenopathy. Trachea is central. No cervical or axillary lymphadenopathy noted. Carotids are 2+, JVD WNL LUNGS: Respiration seems nonlabored, no significant accessory muscle action noted. Breath sounds clear to auscultation bilaterally and equal noted. No wheezes rales or rhonchi noted. No significant dullness noted on percussion. CHEST: Palpation of the chest wall shows no significant chest wall tenderness. HEART: [place] [employer], No PSH, 1/6 MARIANNA aortic area, 1/6 [place] systolic murmur mitral area, no rubs, no gallops. ABDOMEN: Soft, no significant tenderness appreciated, normoactive bowel sounds. No guarding, no rebound. No rigidity noted . No masses appreciated. EXTREMITIES: Pedal pulses are 1-2+, no calf tenderness noted. No clubbing or cyanosis. negative pedal edema noted NEUROLOGICAL: Focused neurological exam showed no significant neurologic deficit. Normal speech, no focal weakness appreciated. PSYCH: Normal mood, normal affect. Judgment and insight within normal limits. SKIN: No significant ecchymosis, skin is noted to be warm. MUSCULOSKELETAL EXAM: No significant acute joint swelling noted. Results Laboratory Results: 12/13/17 05:41 12/13/17 05:41 EKG Comments: Telemetry shows sinus rhythm without any sustained tachycardia or bradycardia. Assessment & Plan - Diagnosis (1) Syncope Qualifiers: Syncope type: unspecified Qualified Code(s): R55 - Syncope and collapse Is this a current diagnosis for this admission?: Yes (2) Transient hypotension Is this a current diagnosis for this admission?: Yes (3) CAD (coronary artery disease) Qualifiers: Coronary Disease-Associated Artery/Lesion type: [place] artery [place] vs. transplanted heart: [place] heart Associated angina: with unstable angina Qualified Code(s): I25.110 - Atherosclerotic heart disease of [place] coronary artery with unstable angina pectoris (4) COPD (chronic obstructive pulmonary disease) Qualifiers: COPD type: unspecified COPD Qualified Code(s): J44.9 - Chronic obstructive pulmonary disease, unspecified Is this a current diagnosis for this admission?: Yes (5) Chest pain Qualifiers: Chest pain type: unspecified Qualified Code(s): R07.9 - Chest pain, unspecified Is this a current diagnosis for this admission?: Yes (6) HTN (hypertension) Qualifiers: Hypertension type: essential hypertension Qualified Code(s): I10 - Essential (primary) hypertension Is this a current diagnosis for this admission?: Yes - Notes Notes: Patient antihypertensive regimen was optimized. Continue patient on carvedilol 25 mg p.o. every 12, Norvasc total of 10 mg a day and also started patient on lisinopril 10 mg p.o. twice daily. Patient will benefit from close follow-up in the office. I am told patient is being discharged today. Recommend manual blood pressure check in this lady. Syncope: Most likely related to hypotension. Patient probably mildly dehydrated in addition had gotten multiple blood pressure medication. Patient has difficult and labile hypertension. Transient hypotension: This seems to have resolved. Blood pressure now stable. Coronary artery disease: Symptomatically stable without any angina or angina equivalent symptoms. COPD: Currently stable. Continue current management plans. Chest pain: This was adequately evaluated during last admission. Currently this is not a complaint, which is significant for this patient. Hypertension: Medical regimen is being optimized. - Time Time with patient: Greater than 35 minutes - CODE STATUS was discussed, patient remains full code. Surrogate decision-maker unchanged. Multiple medical problems were addressed. More than 50% of the time spent coordinating care, discussing management plans with involved caregivers. Management plans discussed with involved personnels. Medical decision making was of moderate to high complexity, patient's has multiple comorbidities. Medications reviewed and adjusted accordingly: Yes
[2017-12-14] MEDS ORDERED: LISINOPRIL 10 MG TABLET PO SCH (22:00)
[2017-12-15] MEDS ORDERED: AMLODIPINE BESYLATE 10 MG TABLET PO SCH (10:00)
== END 2017-12-14 13:35 | disposition home or self-care (01) ==
LOC: ER 13:02 → EH 16:00 → 3S 23:05
PROVIDERS: ADMIT Emergency Medicine; ATTEND Emergency Medicine
DX: N17.9 Acute kidney failure, unspecified (principal); I95.89 Other hypotension; E78.5 Hyperlipidemia, unspecified; R55 Syncope and collapse; J44.9 Chronic obstructive pulmonary disease, unspecified; R06.02 Shortness of breath; I45.10 Unspecified right bundle-branch block; F41.9 Anxiety disorder, unspecified; F32.9 Major depressive disorder, single episode, unspecified; I25.10 Atherosclerotic heart disease of native coronary artery without angina pectoris; I11.0 Hypertensive heart disease with heart failure; I50.30 Unspecified diastolic (congestive) heart failure; I16.0 Hypertensive urgency; G50.0 Trigeminal neuralgia; Z79.899 Other long term (current) drug therapy; Z79.82 Long term (current) use of aspirin; Z85.118 Personal history of other malignant neoplasm of bronchus and lung; Z90.2 Acquired absence of lung [part of]; Z85.3 Personal history of malignant neoplasm of breast; Z90.12 Acquired absence of left breast and nipple; Z95.5 Presence of coronary angioplasty implant and graft; Z82.49 Family history of ischemic heart disease and other diseases of the circulatory system
CPT/HCPCS: 93005; 99285; 36415 ×2; 82962; 83735; 85025 ×2; 80053 ×2; 84484; 93010; G0378 ×4; A9270 ×17; J1644 ×3; J3490

== ENCOUNTER 2018-06-14 09:30 | Inpatient (IN) | payer MEDICARE, OTHER ==
--- NOTE | 2018-06-14 10:13 | RADIOLOGY REPORT (SQ) ---
EXAM DESCRIPTION: CT HEAD WITHOUT COMPLETED DATE/TIME: 06/14/2018 10:05 am REASON FOR STUDY: syncope, fall, poss hit head COMPARISON: 12/12/2017 TECHNIQUE: Axial images acquired through the brain without intravenous contrast. Images reviewed wi th bone, brain and subdural windows. Additional sagittal and coronal reconstructions were generated. Images stored on PACS. All CT scanners at this facility use dose modulation, iterative reconstruction, and/or weight based d osing when appropriate to reduce radiation dose to as low as reasonably achievable (ALARA). [facility]: Dose Right [facility]: CareDose [facility]: Dose Right [facility]: Teradose 4D [facility]: [employer] RADIATION DOSE: CT Rad equipment meets quality standard of care and radiation dose reduction techniq ues were employed. CTDIvol: 53.2 mGy. DLP: 1017 mGy-cm. mGy. LIMITATIONS: None. FINDINGS: VENTRICLES: Normal size and contour. CEREBRUM: No masses. No hemorrhage. No midline shift. No evidence for acute infarction. Areas of l ow density in the white matter most likely chronic small vessel ischemic changes. CEREBELLUM: No masses. No hemorrhage. No alteration of density. No evidence for acute infarction. EXTRAAXIAL SPACES: No fluid collections. No masses. ORBITS AND GLOBE: No intra- or extraconal masses. Normal contour of globe without masses. CALVARIUM: No fracture. PARANASAL SINUSES: Mild mucoperiosteal thickening in the left sphenoid sinus. SOFT TISSUES: No mass or hematoma. OTHER: No other significant finding. IMPRESSION: Mild sinus disease. Chronic microvascular ischemia. No acute intracranial imaging find ings. EVIDENCE OF ACUTE STROKE: NO. COMMENT: Quality ID # [id number]: Final reports with documentation of one or more dose reduction techniques (e.g., Automated exposure control, adjustment of the mA and/or kV according to patient size, use of iterative reconstruction technique) TECHNICAL DOCUMENTATION: JOB ID: [id number] [employer]- All Rights Reserved Reading location - IP/workstation name: [email or web address]
--- NOTE | 2018-06-14 10:27 | RADIOLOGY REPORT (SQ) ---
EXAM DESCRIPTION: CHEST SINGLE VIEW COMPLETED DATE/TIME: 06/14/2018 10:21 am REASON FOR STUDY: near syncope COMPARISON: 12/12/2017 EXAM PARAMETERS: NUMBER OF VIEWS: One view. TECHNIQUE: Single frontal radiographic view of the chest acquired. RADIATION DOSE: NA LIMITATIONS: None. FINDINGS: LUNGS AND PLEURA: No opacities, masses or pneumothorax. No pleural effusion. MEDIASTINUM AND HILAR STRUCTURES: Small hiatal hernia. What hilar prominence is unchanged. HEART AND VASCULAR STRUCTURES: Heart normal in size. Normal vasculature. BONES: No acute findings. HARDWARE: None in the chest. OTHER: No other significant finding. IMPRESSION: Hiatal hernia. Right hilar prominence. No acute cardiopulmonary findings. TECHNICAL DOCUMENTATION: JOB ID: [id number] [employer]- All Rights Reserved Reading location - IP/workstation name: [email or web address]
--- NOTE | 2018-06-14 10:27 | RADIOLOGY REPORT (SQ) ---
EXAM DESCRIPTION: KNEE LEFT 2 VIEWS COMPLETED DATE/TIME: 06/14/2018 10:21 am REASON FOR STUDY: fall, pain COMPARISON: None. NUMBER OF VIEWS: Two views. TECHNIQUE: AP and lateral radiographic images acquired of the left knee. LIMITATIONS: None. FINDINGS: MINERALIZATION: Normal. BONES: No acute fracture or dislocation. No worrisome bone lesions. JOINT: Mild joint space narrowing in all compartments. No joint effusion. SOFT TISSUES: No soft tissue swelling. No radio-opaque foreign body. OTHER: No other significant finding. IMPRESSION: Mild osteoarthritic changes. No acute fracture or dislocation. TECHNICAL DOCUMENTATION: JOB ID: [id number] [employer]- All Rights Reserved Reading location - IP/workstation name: [email or web address]
--- NOTE | 2018-06-14 10:27 | RADIOLOGY REPORT (SQ) ---
EXAM DESCRIPTION: PELVIS AP COMPLETED DATE/TIME: 06/14/2018 10:21 am REASON FOR STUDY: fall, pain COMPARISON: None. NUMBER OF VIEWS: One view TECHNIQUE: AP Pelvis LIMITATIONS: None. FINDINGS: MINERALIZATION: Normal. HIPS: No acute fracture or dislocation. No worrisome bone lesions. PELVIS AND SACRUM: No acute fracture or dislocation. No worrisome bone lesions. PUBIS AND ISCHIUM: No acute fracture. LOWER LUMBAR SPINE: No significant findings as visualized. SOFT TISSUES: No findings. OTHER: No other significant finding. IMPRESSION: NEGATIVE STUDY OF THE PELVIS. COMMENT: Pelvic fractures are often occult on plain radiographs. If strong clinical suspicion for f racture, recommend CT or MR. TECHNICAL DOCUMENTATION: JOB ID: [id number] [employer]- All Rights Reserved Reading location - IP/workstation name: [email or web address]
--- NOTE | 2018-06-14 10:28 | RADIOLOGY REPORT (SQ) ---
EXAM DESCRIPTION: ANKLE LEFT COMPLETE COMPLETED DATE/TIME: 06/14/2018 10:21 am REASON FOR STUDY: fall, pain COMPARISON: None. NUMBER OF VIEWS: Three views. TECHNIQUE: AP, lateral, and oblique radiographic images acquired of the left ankle. LIMITATIONS: None. FINDINGS: MINERALIZATION: Normal. BONES: No acute fracture or dislocation. No worrisome bone lesions. JOINTS: No effusions. SOFT TISSUES: No soft tissue swelling. No foreign body. OTHER: No other significant finding. IMPRESSION: NEGATIVE STUDY OF THE LEFT ANKLE. NO RADIOGRAPHIC EVIDENCE OF ACUTE INJURY. TECHNICAL DOCUMENTATION: JOB ID: [id number] [employer]- All Rights Reserved Reading location - IP/workstation name: [email or web address]
[2018-06-14 10:57] LABS: ABSOLUTE EOSINOPHILS # (AUTO) 0.1 10^3/uL (0.0-0.6); ABSOLUTE LYMPHOCYTES (AUTO) 0.9 10^3/uL (0.5-4.7); ABSOLUTE MONOCYTES (AUTO) 0.4 10^3/uL (0.1-1.4); ABSOLUTE NEUT (AUTO) 5.3 10^3/uL (1.7-8.2); BASOPHILS % (AUTO) 0.3 % (0-2); EOSINOPHILS % (AUTO) 0.9 % (0-6); HEMATOCRIT 34.7 % (36.0-47.0); HEMOGLOBIN 11.8 g/dL (12.0-15.5); LYMPHOCYTES % (AUTO) 13.3 % (13-45); MEAN CORPUSCULAR HEMOGLOBIN 30.7 pg (27.0-33.4); MEAN CORPUSCULAR HGB CONC 34.1 g/dL (32.0-36.0); MEAN CORPUSCULAR VOLUME 90 fl (80-97); MONOCYTES % (AUTO) 5.6 % (3-13); PLATELET COUNT 219 10^3/uL (150-450); RED BLOOD COUNT 3.84 10^6/uL (3.72-5.28); RED CELL DISTRIBUTION WIDTH 14.3 % (11.5-14.0); SEGMENTED NEUTROPHILS % (AUTO) 79.9 % (42-78); TOTAL CELLS COUNTED % (AUTO) 100 %; WHITE BLOOD COUNT 6.6 10^3/uL (4.0-10.5)
[2018-06-14 11:06] LABS: ALANINE AMINOTRANSFERASE 20 U/L (9-52); ALKALINE PHOSPHATASE 80 U/L (38-126); ANION GAP 12 (5-19); ASPARTATE AMINO TRANSFERASE 19 U/L (14-36); BILIRUBIN,DIRECT 0.3 mg/dL (0.0-0.4); BILIRUBIN,TOTAL 0.4 mg/dL (0.2-1.3); BLOOD UREA NITROGEN 37 mg/dL (7-20); CARBON DIOXIDE 27 mmol/L (22-30); CHLORIDE 98 mmol/L (98-107); CREATINE KINASE 25 U/L (30-135); GLUCOSE 102 mg/dL (75-110); POTASSIUM 4.4 mmol/L (3.6-5.0); SODIUM 136.9 mmol/L (137-145); TOTAL PROTEIN 6.4 g/dL (6.3-8.2)
[2018-06-14 11:17] LABS: CREATINE KINASE MB 0.45 ng/mL (<4.55)
[2018-06-14 11:19] LABS: TROPONIN I < 0.012 ng/mL
[2018-06-14] MEDS ORDERED: NORMAL SALINE 500 ML IV ONE (11:27)
[2018-06-14 12:30] LABS: APPEARANCE,URINE CLOUDY; BILIRUBIN,URINE NEGATIVE (NEGATIVE); COLOR,URINE YELLOW; GLUCOSE, URINE NEGATIVE (NEGATIVE); KETONES,URINE NEGATIVE (NEGATIVE); LEUKOCYTE ESTERASE,URINE SMALL (NEGATIVE); NITRITE,URINE NEGATIVE (NEGATIVE); PROTEIN,URINE NEGATIVE (NEGATIVE); URINE SPECIFIC GRAVITY 1.015; UROBILINOGEN,URINE NEGATIVE mg/dL (<2.0)
--- NOTE | 2018-06-14 14:11 | ER Document Report ---
Entered by TRAY VIERA SCRIBE 06/14/18 1127 Acting as scribe for:MARTINA SÁNCHEZ DO ED Fall - General Chief Complaint: Fall Injury Stated Complaint: ANKLE PAIN Time Seen by Provider: 06/14/18 09:49 Primary Care Provider: MARISSA CELAYA MD [Primary Care Provider] - Follow up as needed Information source: Patient Notes: Patient is an 82 year old female that presents to the emergency department secondary to a fall that occurred just prior to arrival. Patient reports that she sometimes gets lightheaded after taking her blood pressure medication. Pat ient states this happened today, but the lightheadedness caused her to fall today. Patient was found to have an systolic pressure in the 80s. Patient complains of left lower extremity pain. Patient did not pass out. Patient denies any other symptoms. TRAVEL OUTSIDE OF THE [place] IN LAST 30 DAYS: No - Related data Allergies/Adverse Reactions: promethazine HCl [From Phenergan] Allergy (Verified 12/12/17 13:03) Past Medical History - General Information source: Patient - Social History Smoking Status: Unknown if Ever Smoked Family History: Reviewed & Not Pertinent, Hypertension Patient has suicidal ideation: No Patient has homicidal ideation: No - Past Medical History Cardiac Medical History: Reports: Hx Congestive Heart Failure, Hx Coronary Artery Disease, Hx Hypercholesterolemia, Hx Hypertension Pulmonary Medical History: Reports: Hx COPD Malignancy Medical History: Reports: Hx Breast Cancer, Hx Lung Cancer GI Medical History: Reports: Hx Hiatal Hernia, Hx Ulcer Past Surgical History: Reports: Hx Abdominal Surgery, Hx Breast Surgery - Left mastectomy for breast cancer, Hx Cardiac Catheterization, Hx Cardiac Surgery - stent 2006, Hx Section, Hx Coronary Stent, Hx Gynecologic Surgery - c- section, Hx Hysterectomy, Hx Mastectomy - Left - Immunizations Hx Diphtheria, Pertussis, Tetanus Vaccination: Yes Hx Pneumococcal Vaccination: 03/26/14 Review of Systems - Review of Systems Constitutional: denies: Fever EENT: No symptoms reported Cardiovascular: See HPI, Lightheaded. denies: Syncope Respiratory: denies: Cough, Short of breath Gastrointestinal: denies: Abdominal pain Genitourinary: No symptoms reported Female Genitourinary: No symptoms reported Musculoskeletal: See HPI, Joint pain - ankle pain Skin: No symptoms reported Hematologic/Lymphatic: No symptoms reported Neurological/Psychological: No symptoms reported -: Yes All other systems reviewed and negative Physical Exam - Vital signs Vitals: BP 130/64 H 06/14/18 09:38 Course - Re-evaluation Re-evalutation: 06/14/18 13:26 Patient is an 82-year-old female who fell today at her house and sprained her left ankle. Patient states that she is feeling lightheaded and took her blood pressure which was 80 systolic. Patient states that she sometimes feels lightheaded after she takes her blood pressure medication in the morning, but it was worse today. Blood work with some very mild acute renal insufficiency. No evidence for fracture on x-rays. No abnormalities on CT. Patient has received fluids and is still not feeling well although she is not orthostatic at this time. Patient was discussed with her primary care doctor, Dr. Celaya, and will be admitted to telemetry for further evaluation. Patient agrees with this plan. Stable time of admission. - Vital Signs Vital signs: Temp Pulse Resp BP Pulse Ox 97.6 F 62 16 172/67 H 97 06/14/18 09:41 06/14/18 12:06 06/14/18 13:01 06/14/18 13:01 06/14/18 13:01 - Laboratory Result Diagrams: 06/14/18 10:41 06/14/18 10:41 Laboratory results interpreted by me: 06/14/18 06/14/18 06/14/18 10:41 10:41 12:15 Hgb 11.8 L Hct 34.7 L RDW 14.3 H Seg Neutrophils % 79.9 H Sodium 136.9 L BUN 37 H Creatinine 1.36 H Est GFR ( Amer) 45 L Est GFR (Non-Af Amer) 37 L Creatine Kinase 25 L Ur Leukocyte Esterase SMALL H - Diagnostic Test Radiology reviewed: Reports reviewed - EKG Interpretation by Me EKG shows normal: Sinus rhythm Discharge - Discharge Clinical Impression: Transient hypotension Syncope Qualifiers: Syncope type: unspecified Qualified Code(s): R55 - Syncope and collapse Left ankle sprain Qualifiers: Encounter type: initial encounter Involved ligament of ankle: unspecified ligament Qualified Code(s): S93.402A - Sprain of unspecified ligament of left ankle, initial encounter Condition: Stable Disposition: ADMITTED OBSERVATION Admitting Provider: Belia Unit Admitted: Telemetry Referrals: MARISSA CELAYA MD [Primary Care Provider] - Follow up as needed Scribe Attestation: 06/14/18 14:11 I personally performed the services described in the documentation, reviewed and edited the documentation which was dictated to the scribe in my presence, and it accurately records my words and actions. I personally performed the services described in the documentation, reviewed and edited the documentation which was dictated to the scribe in my presence, and it accurately records my words and actions.
[2018-06-14] MEDS ORDERED: HYDRALAZINE HCL INJ/PF 20 MG/1 ML SDV ONE (18:34)
[2018-06-14] MEDS ORDERED: HYDRALAZINE HCL 10 MG TABLET PO ONE (19:00)
[2018-06-14] MEDS: HYDROCODONE/ACETAMINOPHEN 5-325 MG TABLET PO PRN (19:54)
--- NOTE | 2018-06-14 20:06 | PDOC H&P ---
History of Present Illness Admission Date/PCP: 06/14/18 13:42 MARISSA VERO History of Present Illness: BERNABE DORMAN is a 82 year old female known to my practice who presented to the ED with compliant of a fall at home. She reported that she eat and took her medication for this morning. She subsequently felt dizzy but did not passed out. She attempted to move into her living room but was unable and in the process fell. She reported that her post medication blood pressure reading was in the 80's. Patient reported prior episodes of dizziness and lightheadedness with her anti hypertensive medication but no fall or syncope. She denied any preceding palpitation, chest pain, headache or focal weakness. No abdominal pain, nausea or vomiting. She reported left ankle region drawing pain and surrounding swelling that developed after her fall. Her initial evaluation in the ED reve aled systolic blood pressure in the 130's with subsequent elevation and upon arrival on telemetry floor was significantly high to warrant administration of IV Hydralazine. Her chemistry suggested acute kidney injury and abnormal urinalysis with possible UTI and probable cause of her presentation. Her morbidities include hypertension, mixed anxiety with depression, chronic diastolic heart failure, COPD, Hyperlipidemia, sleep apnea, and osteoarthritis. She was advised admission to telemetry floor for further evaluation and management. Past Medical History Cardiac Medical History: Reports: Congestive Heart Failure, Coronary Artery Disease, Hyperlipidema, Hypertension Denies: Myocardial Infarction Pulmonary Medical History: Reports: Chronic Obstructive Pulmonary Disease (COPD) Denies: Asthma, Bronchitis, Pneumonia Neurological Medical History: Denies: Seizures Malignancy Medical History: Reports: Breast Cancer, Lung Cancer GI Medical History: Reports: Hiatal Hernia Musculoskeltal Medical History: Denies: Arthritis Psychiatric Medical History: Denies: Depression Hematology: Reports: Anemia Past Surgical History Past Surgical History: Reports: Cardiac Catheterization, Section, Coronary Stent, Hysterectomy, Mastectomy - Left Social History Smoking Status: Unknown if Ever Smoked Frequency of Alcohol Use: None Hx Recreational Drug Use: No Drugs: None Hx Prescription Drug Abuse: No - Advance Directive Resuscitation Status: Full Code Family History Family History: Reviewed & Not Pertinent, Hypertension Parental Family History Reviewed: Yes Children Family History Reviewed: Yes Sibling(s) Family History Reviewed.: Yes Medication/Allergy Home Medications: Alprazolam [Xanax 0.25 mg Tablet] 0.25 mg PO BID@06/14/18 Amlodipine Besylate/Benazepril [Lotrel 10-40 mg Capsule] 1 cap PO NOON 06/14/18 Aspirin [Ecotrin 81 mg EC Tablet] 81 mg PO DAILY 06/14/18 Carbamazepine [Carbamazepine ER] 400 mg PO Q12 06/14/18 Carvedilol [Coreg 25 mg Tablet] 25 mg PO Q12 06/14/18 Chlorthalidone [Hygroton 25 mg Tablet] 25 mg PO DAILY 06/14/18 Donepezil HCl [Aricept 5 mg Tablet] 5 mg PO QHS 06/14/18 Primidone [Mysoline 50 mg Tablet] 50 mg PO TID 06/14/18 Ranitidine HCl [Zantac] 300 mg PO QHS 06/14/18 Rosuvastatin Calcium [Crestor 10 mg Tablet] 10 mg PO QHS 06/14/18 Sertraline HCl [Zoloft 50 mg Tablet] 50 mg PO QHS 06/14/18 Allergies/Adverse Reactions: promethazine HCl [From Phenergan] Allergy (Verified 12/12/17 13:03) Review of Systems Constitutional: ABSENT: chills, fever(s), headache(s), weight gain, weight loss Eyes: ABSENT: visual disturbances Ears: ABSENT: hearing changes Nose, Mouth, and Throat: ABSENT: headache(s), vertigo Cardiovascular: ABSENT: chest pain, dyspnea on exertion, edema, orthropnea, palpitations Respiratory: ABSENT: cough, hemoptysis Gastrointestinal: ABSENT: abdominal pain, constipation, diarrhea, hematemesis, hematochezia, nausea, vomiting Genitourinary: ABSENT: dysuria, hematuria Musculoskeletal: PRESENT: joint swelling - left ankle Integumentary: ABSENT: rash, wounds Neurological: PRESENT: dizziness - and lightheadedness. ABSENT: abnormal gait, abnormal movements, confusion, focal weakness, frequent falls, numbness, syncope, tingling, tremor(s), vertigo, weakness Psychiatric: PRESENT: anxiety, depression Endocrine: ABSENT: cold intolerance, heat intolerance, polydipsia, polyuria Hematologic/Lymphatic: ABSENT: easy bleeding, easy bruising, lymphadenopathy Allergic/Immunologic: ABSENT: seasonal rhinorrhea Physical Exam Vital Signs: Temp Pulse Resp BP Pulse Ox 97.6 F 65 17 160/80 H 98 06/14/18 09:41 06/14/18 19:28 06/14/18 18:07 06/14/18 18:07 06/14/18 18:07 Intake & Output 06/13/18 06/14/18 06/15/18 06:59 06:59 06:59 Intake Total 500 Balance 500 Weight 72.2 kg General appearance: PRESENT: mild distress - due to left ankle joint swelling and pain Head exam: PRESENT: atraumatic, normocephalic Eye exam: PRESENT: conjunctiva pink, EOMI, PERRLA. ABSENT: scleral icterus Ear exam: PRESENT: normal external ear exam Mouth exam: PRESENT: moist Respiratory exam: PRESENT: clear to auscultation ulysses Cardiovascular exam: PRESENT: RRR, +S1, +S2, systolic murmur. ABSENT: diastolic murmur, rubs Vascular exam: PRESENT: normal capillary refill. ABSENT: pallor GI/Abdominal exam: PRESENT: normal bowel sounds, soft. ABSENT: distended, guarding, mass, organolmegaly, rebound, tenderness Rectal exam: PRESENT: deferred Extremities exam: PRESENT: joint swelling - left ankle region, tenderness - left ankle region Musculoskeletal exam: PRESENT: deformity - related to multiple joints involveme nt with arthritis Neurological exam: PRESENT: alert, awake, oriented to person, oriented to place, oriented to time, oriented to situation, CN II-XII grossly intact. ABSENT: motor sensory deficit Psychiatric exam: PRESENT: appropriate affect, normal mood. ABSENT: homicidal ideation, suicidal ideation Skin exam: PRESENT: dry, intact, warm. ABSENT: cyanosis, rash Results Laboratory Results: 06/14/18 10:41 06/14/18 10:41 06/14/18 06/14/18 06/14/18 10:41 10:41 10:41 WBC 6.6 RBC 3.84 Hgb 11.8 L Hct 34.7 L MCV 90 MCH 30.7 MCHC 34.1 RDW 14.3 H Plt Count 219 Seg Neutrophils % 79.9 H Lymphocytes % 13.3 Monocytes % 5.6 Eosinophils % 0.9 Basophils % 0.3 Absolute Neutrophils 5.3 Absolute Lymphocytes 0.9 Absolute Monocytes 0.4 Absolute Eosinophils 0.1 Absolute Basophils 0.0 Sodium 136.9 L Potassium 4.4 Chloride 98 Carbon Dioxide 27 Anion Gap 12 BUN 37 H Creatinine 1.36 H Est GFR ( Amer) 45 L Est GFR (Non-Af Amer) 37 L Glucose 102 Lactic Acid 0.8 Calcium 10.0 Total Bilirubin 0.4 AST 19 ALT 20 Alkaline Phosphatase 80 Total Protein 6.4 Albumin 4.0 Urine Color Urine Appearance Urine pH Ur Specific [place] Urine Protein Urine Glucose (UA) Urine Ketones Urine Blood Urine Nitrite Ur Leukocyte Esterase Urine WBC (Auto) Urine RBC (Auto) 06/14/18 12:15 WBC RBC Hgb Hct MCV MCH MCHC RDW Plt Count Seg Neutrophils % Lymphocytes % Monocytes % Eosinophils % Basophils % Absolute Neutrophils Absolute Lymphocytes Absolute Monocytes Absolute Eosinophils Absolute Basophils Sodium Potassium Chloride Carbon Dioxide Anion Gap BUN Creatinine Est GFR ( Amer) Est GFR (Non-Af Amer) Glucose Lactic Acid Calcium Total Bilirubin AST ALT Alkaline Phosphatase Total Protein Albumin Urine Color YELLOW Urine Appearance CLOUDY Urine pH 6.0 Ur Specific [place] 1.015 Urine Protein NEGATIVE Urine Glucose (UA) NEGATIVE Urine Ketones NEGATIVE Urine Blood NEGATIVE Urine Nitrite NEGATIVE Ur Leukocyte Esterase SMALL H Urine WBC (Auto) 7 Urine RBC (Auto) 3 06/14/18 06/14/18 10:41 10:41 Creatine Kinase 25 L CK-MB (CK-2) 0.45 Troponin I < 0.012 Impressions: Chest X-Ray 06/14/18 00:00 IMPRESSION: Hiatal hernia. Right hilar prominence. No acute cardiopulmonary findings. Ankle X-Ray 06/14/18 09:51 IMPRESSION: NEGATIVE STUDY OF THE LEFT ANKLE. NO RADIOGRAPHIC EVIDENCE OF ACUTE INJURY. Head CT 06/14/18 09:51 IMPRESSION: Mild sinus disease. Chronic microvascular ischemia. No acute intracranial imaging findings. EVIDENCE OF ACUTE STROKE: NO. Knee X-Ray 06/14/18 09:51 IMPRESSION: Mild osteoarthritic changes. No acute fracture or dislocation. Pelvis X-Ray 06/14/18 09:51 IMPRESSION: NEGATIVE STUDY OF THE PELVIS. Assessment & Plan - Diagnosis (1) Transient hypotension Is this a current diagnosis for this admission?: Yes Plan: See admitting attending physician orders. (2) Fall in home Qualifiers: Encounter type: initial encounter Qualified Code(s): W19.XXXA - Unspecified fall, initial encounter; Y92.009 - Unspecified place in unspecified non- institutional (private) residence as the place of occurrence of the external cause Is this a current diagnosis for this admission?: Yes Plan: See admitting attending physician orders. (3) Left ankle sprain Qualifiers: Encounter type: initial encounter Involved ligament of ankle: unspecified ligament Qualified Code(s): S93.402A - Sprain of unspecified ligament of left ankle, initial encounter Is this a current diagnosis for this admission?: Yes Plan: See admitting attending physician orders. (4) Essential hypertension Is this a current diagnosis for this admission?: Yes Plan: See admitting attending physician orders. (5) MEHDI (acute kidney injury) Is this a current diagnosis for this admission?: Yes Plan: See admitting attending physician orders. (6) Abnormal urinalysis Plan: See admitting attending physician orders. - Time Time Spent: 50 to 70 Minutes Medications reviewed and adjusted accordingly: Yes Anticipated discharge: Home with Homehealth Within: within 48 hours - Plan Summary Plan Summary: Start on IV Hydralazine for severely elevated blood pressure. Start on IV Rocephin coverage pending urine culture finding. Start on IV Normal saline at 50 ml/hour in view of her elevated blood pressure. Obtain CBC and BMP in AM. Continue preadmission medication management. Possible discharge in next 48 hours unless more acute issue arise.
[2018-06-14] MEDS: CEFTRIAXONE 1 GM/D5W RTU 1 GM/50 ML RTUPB IV SCH (20:35)
[2018-06-14] MEDS: NORMAL SALINE 1000 ML 1,000 ML IV PRN (20:42)
[2018-06-14] MEDS: PRIMIDONE 50 MG TABLET PO SCH (21:40)
[2018-06-14] MEDS: CARBAMAZEPINE 200 MG TAB.SR.12H PO SCH (21:40)
[2018-06-14] MEDS: FAMOTIDINE 20 MG TABLET PO SCH (21:40)
[2018-06-14] MEDS: CARVEDILOL 12.5 MG TABLET PO SCH (21:40)
[2018-06-14] MEDS: DONEPEZIL HCL 5 MG TABLET PO SCH (21:40)
[2018-06-14] MEDS: ATORVASTATIN CALCIUM 20 MG TABLET PO SCH (21:41)
[2018-06-14] MEDS: SERTRALINE HCL 50 MG TABLET PO SCH (21:41)
[2018-06-14] MEDS: ALPRAZOLAM 0.25 MG TABLET PO SCH (21:42)
[2018-06-14] MEDS ORDERED: (PENDING PHARMACY ID) (Ranitidine Hcl [Zantac] 300 MG) PO SCH (22:00)
[2018-06-14] MEDS ORDERED: CARBAMAZEPINE 400 MG PO SCH (22:00)
--- NOTE | 2018-06-14 22:59 | EKG REPORT ---
SEVERITY:- ABNORMAL ECG - SINUS RHYTHM RIGHT BUNDLE BRANCH BLOCK LEFT VENTRICULAR HYPERTROPHY : Confirmed by: Venita Malloy 14-Jun-2018 22:58:35
[2018-06-15] MEDS: HYDROCODONE/ACETAMINOPHEN 5-325 MG TABLET PO PRN ×3 (01:48→21:08)
[2018-06-15 05:21] LABS: ABSOLUTE EOSINOPHILS # (AUTO) 0.1 10^3/uL (0.0-0.6); ABSOLUTE LYMPHOCYTES (AUTO) 1.2 10^3/uL (0.5-4.7); ABSOLUTE MONOCYTES (AUTO) 0.7 10^3/uL (0.1-1.4); ABSOLUTE NEUT (AUTO) 4.5 10^3/uL (1.7-8.2); BASOPHILS % (AUTO) 0.3 % (0-2); EOSINOPHILS % (AUTO) 0.9 % (0-6); HEMATOCRIT 31.2 % (36.0-47.0); HEMOGLOBIN 10.7 g/dL (12.0-15.5); LYMPHOCYTES % (AUTO) 19.2 % (13-45); MEAN CORPUSCULAR HEMOGLOBIN 30.4 pg (27.0-33.4); MEAN CORPUSCULAR HGB CONC 34.4 g/dL (32.0-36.0); MEAN CORPUSCULAR VOLUME 89 fl (80-97); MONOCYTES % (AUTO) 10.9 % (3-13); PLATELET COUNT 179 10^3/uL (150-450); RED BLOOD COUNT 3.52 10^6/uL (3.72-5.28); RED CELL DISTRIBUTION WIDTH 14.5 % (11.5-14.0); SEGMENTED NEUTROPHILS % (AUTO) 68.7 % (42-78); TOTAL CELLS COUNTED % (AUTO) 100 %; WHITE BLOOD COUNT 6.5 10^3/uL (4.0-10.5)
[2018-06-15 05:29] LABS: ANION GAP 8 (5-19); BLOOD UREA NITROGEN 33 mg/dL (7-20); CALCIUM 9.3 mg/dL (8.4-10.2); CARBON DIOXIDE 27 mmol/L (22-30); CHLORIDE 100 mmol/L (98-107); GLUCOSE 99 mg/dL (75-110); POTASSIUM 3.8 mmol/L (3.6-5.0); SODIUM 135.1 mmol/L (137-145)
[2018-06-15] MEDS: PRIMIDONE 50 MG TABLET PO SCH ×3 (05:54→21:08)
[2018-06-15] MEDS: CARVEDILOL 12.5 MG TABLET PO SCH ×2 (10:01→21:08)
[2018-06-15] MEDS: ASPIRIN 81 MG TABLET, ENT COATED PO SCH (10:01)
[2018-06-15] MEDS: CARBAMAZEPINE 200 MG TAB.SR.12H PO SCH ×2 (10:02→21:08)
[2018-06-15] MEDS ORDERED: (PENDING PHARMACY ID) (Amlodipine Besylate/Benazepril [Lotrel 10-40 Mg Capsule] 1 CAP) PO SCH (12:00)
[2018-06-15] MEDS: AMLODIPINE BESYLATE 10 MG TABLET PO SCH (14:29)
[2018-06-15] MEDS: BENAZEPRIL HCL 20 MG TABLET PO SCH (14:30)
[2018-06-15] MEDS: ALPRAZOLAM 0.25 MG TABLET PO SCH ×2 (14:33→21:08)
[2018-06-15] MEDS: CEFTRIAXONE 1 GM/D5W RTU 1 GM/50 ML RTUPB IV SCH (18:00)
--- NOTE | 2018-06-15 18:26 | PDOC PROGRESS REPORT ---
Subjective Progress Note for:: 06/15/18 Subjective:: Patient seen by the bedside there is no new complaints Reason For Visit: HYPOTENSION,DIZZINESS, FALL IN HOME, ACUTE RENAL Physical Exam Vital Signs: Temp Pulse Resp BP Pulse Ox 98.0 F 71 18 168/64 H 98 06/15/18 16:07 06/15/18 16:07 06/15/18 16:07 06/15/18 16:07 06/15/18 16:07 Intake & Output 06/14/18 06/15/18 06/16/18 06:59 06:59 06:59 Intake Total 790 266 Output Total 1000 Balance 790 -734 Weight 72.2 kg General appearance: PRESENT: no acute distress Eye exam: PRESENT: PERRLA Respiratory exam: PRESENT: clear to auscultation ulysses Cardiovascular exam: PRESENT: +S1, +S2 GI/Abdominal exam: PRESENT: soft Neurological exam: PRESENT: alert Results Laboratory Results: 06/15/18 05:08 06/15/18 05:08 06/15/18 06/15/18 05:08 05:08 WBC 6.5 RBC 3.52 L Hgb 10.7 L Hct 31.2 L MCV 89 MCH 30.4 MCHC 34.4 RDW 14.5 H Plt Count 179 Seg Neutrophils % 68.7 Lymphocytes % 19.2 Monocytes % 10.9 Eosinophils % 0.9 Basophils % 0.3 Absolute Neutrophils 4.5 Absolute Lymphocytes 1.2 Absolute Monocytes 0.7 Absolute Eosinophils 0.1 Absolute Basophils 0.0 Sodium 135.1 L Potassium 3.8 Chloride 100 Carbon Dioxide 27 Anion Gap 8 BUN 33 H Creatinine 1.32 H Est GFR ( Amer) 47 L Est GFR (Non-Af Amer) 39 L Glucose 99 Calcium 9.3 06/14/18 06/14/18 10:41 10:41 Creatine Kinase 25 L CK-MB (CK-2) 0.45 Troponin I < 0.012 Impressions: Chest X-Ray 06/14/18 00:00 IMPRESSION: Hiatal hernia. Right hilar prominence. No acute cardiopulmonary findings. Ankle X-Ray 06/14/18 09:51 IMPRESSION: NEGATIVE STUDY OF THE LEFT ANKLE. NO RADIOGRAPHIC EVIDENCE OF ACUTE INJURY. Head CT 06/14/18 09:51 IMPRESSION: Mild sinus disease. Chronic microvascular ischemia. No acute intracranial imaging findings. EVIDENCE OF ACUTE STROKE: NO. Knee X-Ray 06/14/18 09:51 IMPRESSION: Mild osteoarthritic changes. No acute fracture or dislocation. Pelvis X-Ray 06/14/18 09:51 IMPRESSION: NEGATIVE STUDY OF THE PELVIS. Assessment & Plan - Diagnosis (1) Syncope Qualifiers: Syncope type: unspecified Qualified Code(s): R55 - Syncope and collapse Is this a current diagnosis for this admission?: Yes (2) Transient hypotension Is this a current diagnosis for this admission?: Yes (3) Left ankle sprain Qualifiers: Encounter type: initial encounter Involved ligament of ankle: unspecified ligament Qualified Code(s): S93.402A - Sprain of unspecified ligament of left ankle, initial encounter Is this a current diagnosis for this admission?: Yes (4) Essential hypertension Is this a current diagnosis for this admission?: Yes (5) Fall in home Qualifiers: Encounter type: initial encounter Qualified Code(s): W19.XXXA - Unspecified fall, initial encounter; Y92.009 - Unspecified place in unspecified non- institutional (private) residence as the place of occurrence of the external cause Is this a current diagnosis for this admission?: Yes (6) Abnormal urinalysis Is this a current diagnosis for this admission?: Yes - Plan Summary Plan Summary: Continue treatment
[2018-06-15] MEDS: FAMOTIDINE 20 MG TABLET PO SCH (21:07)
[2018-06-15] MEDS: DONEPEZIL HCL 5 MG TABLET PO SCH (21:08)
[2018-06-15] MEDS: ATORVASTATIN CALCIUM 20 MG TABLET PO SCH (21:08)
[2018-06-15] MEDS: SERTRALINE HCL 50 MG TABLET PO SCH (21:08)
[2018-06-15] MEDS: NORMAL SALINE 1000 ML 1,000 ML IV PRN (21:15)
[2018-06-16] MEDS: PRIMIDONE 50 MG TABLET PO SCH ×3 (06:45→21:41)
[2018-06-16] MEDS: CARBAMAZEPINE 200 MG TAB.SR.12H PO SCH ×2 (09:13→21:42)
[2018-06-16] MEDS: CARVEDILOL 12.5 MG TABLET PO SCH ×2 (09:14→21:41)
[2018-06-16] MEDS: ASPIRIN 81 MG TABLET, ENT COATED PO SCH (09:14)
[2018-06-16] MEDS: ALPRAZOLAM 0.25 MG TABLET PO SCH ×2 (13:42→21:45)
[2018-06-16] MEDS: AMLODIPINE BESYLATE 10 MG TABLET PO SCH (13:42)
[2018-06-16] MEDS: BENAZEPRIL HCL 20 MG TABLET PO SCH (13:42)
--- NOTE | 2018-06-16 16:09 | PDOC PROGRESS REPORT ---
Subjective Progress Note for:: 06/16/18 Subjective:: Patient seen by the bedside, still complaining of not able to bear weight on the left foot Reason For Visit: HYPOTENSION,DIZZINESS, FALL IN HOME, ACUTE RENAL Physical Exam Vital Signs: Temp Pulse Resp BP Pulse Ox 98.3 F 67 18 153/54 H 97 06/16/18 15:57 06/16/18 15:57 06/16/18 15:57 06/16/18 15:57 06/16/18 15:57 Intake & Output 06/15/18 06/16/18 06/17/18 06:59 06:59 06:59 Intake Total 790 1902 621 Output Total 2500 900 Balance 610 593 -615 Weight 72.2 kg 72 kg General appearance: PRESENT: no acute distress Eye exam: PRESENT: PERRLA Respiratory exam: PRESENT: clear to auscultation ulysses Cardiovascular exam: PRESENT: +S1, +S2 GI/Abdominal exam: PRESENT: soft Neurological exam: PRESENT: alert Results Laboratory Results: 06/15/18 05:08 06/15/18 05:08 06/14/18 06/14/18 10:41 10:41 Creatine Kinase 25 L CK-MB (CK-2) 0.45 Troponin I < 0.012 Impressions: Chest X-Ray 06/14/18 00:00 IMPRESSION: Hiatal hernia. Right hilar prominence. No acute cardiopulmonary findings. Ankle X-Ray 06/14/18 09:51 IMPRESSION: NEGATIVE STUDY OF THE LEFT ANKLE. NO RADIOGRAPHIC EVIDENCE OF ACUTE INJURY. Head CT 06/14/18 09:51 IMPRESSION: Mild sinus disease. Chronic microvascular ischemia. No acute intracranial imaging findings. EVIDENCE OF ACUTE STROKE: NO. Knee X-Ray 06/14/18 09:51 IMPRESSION: Mild osteoarthritic changes. No acute fracture or dislocation. Pelvis X-Ray 06/14/18 09:51 IMPRESSION: NEGATIVE STUDY OF THE PELVIS. Assessment & Plan - Diagnosis (1) Syncope Qualifiers: Syncope type: unspecified Qualified Code(s): R55 - Syncope and collapse Is this a current diagnosis for this admission?: Yes (2) Transient hypotension Is this a current diagnosis for this admission?: Yes (3) Left ankle sprain Qualifiers: Encounter type: initial encounter Involved ligament of ankle: unspecified ligament Qualified Code(s): S93.402A - Sprain of unspecified ligament of left ankle, initial encounter Is this a current diagnosis for this admission?: Yes (4) Essential hypertension Is this a current diagnosis for this admission?: Yes (5) Fall in home Qualifiers: Encounter type: initial encounter Qualified Code(s): W19.XXXA - Unspecified fall, initial encounter; Y92.009 - Unspecified place in unspecified non- institutional (private) residence as the place of occurrence of the external cause Is this a current diagnosis for this admission?: Yes (6) Abnormal urinalysis Is this a current diagnosis for this admission?: Yes
[2018-06-16] MEDS: CEFTRIAXONE 1 GM/D5W RTU 1 GM/50 ML RTUPB IV SCH (17:45)
[2018-06-16] MEDS: FAMOTIDINE 20 MG TABLET PO SCH (21:42)
[2018-06-16] MEDS: ATORVASTATIN CALCIUM 20 MG TABLET PO SCH (21:42)
[2018-06-16] MEDS: DONEPEZIL HCL 5 MG TABLET PO SCH (21:42)
[2018-06-16] MEDS: SERTRALINE HCL 50 MG TABLET PO SCH (21:47)
[2018-06-17] MEDS: PRIMIDONE 50 MG TABLET PO SCH ×3 (06:16→21:11)
[2018-06-17] MEDS: SENNOSIDES/DOCUSATE 8.6-50 MG 1 EACH TABLET PO SCH (09:37)
[2018-06-17] MEDS: CARBAMAZEPINE 200 MG TAB.SR.12H PO SCH ×2 (09:38→21:08)
[2018-06-17] MEDS: ASPIRIN 81 MG TABLET, ENT COATED PO SCH (09:38)
[2018-06-17] MEDS: CARVEDILOL 12.5 MG TABLET PO SCH ×2 (09:38→21:11)
[2018-06-17] MEDS: AMLODIPINE BESYLATE 10 MG TABLET PO SCH (12:00)
[2018-06-17] MEDS: ALPRAZOLAM 0.25 MG TABLET PO SCH ×2 (12:00→21:08)
[2018-06-17] MEDS: BENAZEPRIL HCL 20 MG TABLET PO SCH (12:00)
[2018-06-17] MEDS: HYDRALAZINE HCL 10 MG TABLET PO SCH ×2 (12:00→17:06)
--- NOTE | 2018-06-17 15:00 | Physician Advisory Note ---
Physician Advisor ProgressNote .: Pursuant to the plan for [facility], I have reviewed the medical record for this patient. Physician Advisor Statement: 82yo MCR pt w/chr diast CHF, CAD/stent, HTN, COPD, br CA/mastec, lung CA, DEJAN, OA came in due to dizziness/hypotension (sBP 80s after taking AM BP meds) @home causing fall w/resultant ankle pain. Was felt to have ankle sprain. Given 500ml IVF bolus in ED & brought in as Obs due to concern for elevated Cr 1.36, U/A w/sm LE, generally not feeling well. Given IV Rocephin, NS @50 (not higher rate due to HTN & chr CHF). Given BP meds + PRN IV hydralazine. BPs as high as 203/75. With orthostatics, BP dropped from 182/87 to 158/73 with HR climb from 62 to 73. Appropriately made Outpt Observation status. On d2, Cr 1.32, Na down to 135.1. sBPs mid-100s. No specific documentation of reasoning why pt unsafe for d/c this day. Cont'd on IV NS @50 & IV Rocephin with dx "abnormal U/A". On d3, no labs done. BP 184/62 once. Attending documented inability to bear weight on Lt foot, but no other new info explaining why pt could not safely go home & have further w/u outpt. Ordered MRI of ankle. No PT eval ordered. Cont'd on IV NS @50 & IV Rocephin with dx "abnormal U/A". On d4, 06/16, no note yet from attg, but sBP 180s twice, MRI not yet done, & order placed for Inpatient status, noting "failure to bear wt" Lt foot, "uncontrolled HTN", dizziness, MEHDI, & "abnormal U/A". Definition: MEHDI dx requires highest Cr to be >0.3 mg/dl above known prior baseline Cr, or the highest Cr to be at least 1.5 times the suspected baseline Cr (which may be the lowest Cr level reached during that hospitalization), or oliguria. Attending, please document: 1. Does this pt have A. "MEHDI ruled out, baseline Cr = ___", or B. "MEHDI, baseline Cr = ____" (see definition above) 2. Is attending concerned about pt's low Na? Does pt have: A. "Acute hyponatremia, suspect due to ____". or B. "Mild hyponatremia, not clinically significant", or ...? 3. Does pt have: A. "abnormal U/A of unclear significance, UTI was ruled out"? or B. "UTI was ruled in & tx'd", or ... 4. Medical necessity: - What is the reason pt continues to need to be cared for in acute hospital level of care since day 1? (Unfortunately, inability to walk is not considered a reason for Medicare to continue to pay for a hospitalization - nonambulatory pts are managed at home or SNF every day. This doesn't mean the hospital drops the pt off at the curb, but [facility] can then address those d/c issues if they know there is no ongoing clinical need for hospital.) - What is the reason for waiting 48 hrs before ordering MRI of ankle? (Medicare is likely to consider this "delay of care" in absence of explanation, and that doesn't justify continued stay or change to INpt status.) - Is the pt being kept in hospital because she is unable to ambulate, or due to some other ongoing acute clinical issue not yet documented? - If a pt appears to be kept in hospital extra days because of social factors (lack of caregiver ...), or pt/family/dr convenience, Medicare will not pay for that, and most certainly will not consider that grounds for changing to INpatient regardless of how long patient stays in hospital. - So far, we have what appears to be, per current documentation, (1) a sprained ankle, (2) dizziness from transient hypotension (which resolved quickly on 1st day), (3) HTN noted since arrival that has not been stated to produce any sx or to be different from her prior baseline, (4) an abnormal Cr that is not stated to be definitely high enough above baseline to qualify for dx of MEHDI and has been treated with very gentle IVF with no repeat labs felt to be necessary since 06/15 AM, (5) an "abnormal U/A" with no documentation of why it could not be safely tx'd with po abx outpt. -> None of this has made it clear the clinical concerns/issues that have continued to require acute inpt hospitalization. An MRI of ankle has been ordered, but MRIs are often done as outpt. If attending can document clinical reasons/concerns that have required the pt's continued stay past 06/15, or new ones dx'd today, please document them explicitly (or consider d/c pt home w/family w/any assistive equipment necessary). Otherwise, this case will be denied for Inpatient status, any SNF transfer attempted will not be paid by Medicare, & even some of the Obs time she has had may be denied as well. Thanks for your help in this challenging situation. KATHIE
--- NOTE | 2018-06-17 16:31 | RADIOLOGY REPORT (SQ) ---
EXAM DESCRIPTION: MRI LT LOWER JOINT WITHOUT COMPLETED DATE/TIME: 06/17/2018 3:31 pm REASON FOR STUDY: MRI Left Ankle/foot for pain/fall/ligament damage R82.998 OTHER ABNORMAL FINDINGS IN URINE COMPARISON: None. TECHNIQUE: Left ankle images acquired and stored on PACS. Multiplanar images include fat sensitive s equences as T1, fluid sensitive sequences as FST2/STIR, cartilage sensitive sequences as FSPD, and gr adient echo sequences. LIMITATIONS: None. FINDINGS: BONE MARROW: No alteration of signal to suggest marrow replacement or edema. No occult fra cture. No large osteophytes. EFFUSIONS: Small subtalar joint effusion. OSSEOUS ARTICULATIONS: Intact. TALAR DOME AND TIBIAL PLAFOND: Intact. ACHILLES TENDON: Intact without partial or full-thickness tear. No adjacent bursal fluid or edema. TIBIALIS ANTERIOR TENDON: Intact without edema at the 1st MT attachment. TIBIALIS POSTERIOR TENDON: Normal morphology and no edema at the navicular attachment. No significant tendon sheath fluid. FLEXOR HALLUCIS LONGUS AND FLEXOR DIGITORUM TENDONS: Normal morphology and no significant tendon boone th fluid. No edema of the os trigonum. PERONEUS LONGUS AND BREVIS TENDON: Split tear of the peroneus brevis. Small amount of fluid in the c ommon tendon sheath. ATFL, CFL, PTFL: Intact. No thickening or signal alteration. No [place]-ligamentous fluid. DELTOID LIGAMENT: Visualized components intact. TARSAL TUNNEL: No masses. No muscle atrophy. SINUS TARSI: No fluid. No reactive marrow edema or erosions. PLANTAR FASCIA: No signal alteration or tear. ADJACENT SOFT TISSUES: No masses. OTHER: No other significant finding. IMPRESSION: 1. No occult fracture. 2. Split tear of the peroneus brevis tendon. 3. Subtalar joint effusion. TECHNICAL DOCUMENTATION: JOB ID: [id number] [employer]- All Rights Reserved Reading location - IP/workstation name: [email or web address]
[2018-06-17] MEDS: CEFTRIAXONE 1 GM/D5W RTU 1 GM/50 ML RTUPB IV SCH (17:06)
--- NOTE | 2018-06-17 17:26 | PDOC PROGRESS REPORT ---
Subjective Progress Note for:: 06/17/18 Subjective:: Patient continue to express pain and difficulty bearing weight on her left foot. She denied chest pain or difficulty with breathing. No nausea, vomiting, or abdomen pain. No fever or chills. She remain on IV Rocephin coverage. Reason For Visit: HYPOTENSION,DIZZINESS, FALL IN HOME, ACUTE RENAL Physical Exam Vital Signs: Temp Pulse Resp BP Pulse Ox 97.6 F 65 19 187/67 H 97 06/17/18 03:03 06/17/18 07:00 06/17/18 03:03 06/17/18 03:03 06/17/18 03:03 Intake & Output 06/16/18 06/17/18 06/18/18 06:59 06:59 06:59 Intake Total 1902 1153 Output Total 2500 1900 Balance -598 -747 Weight 72 kg General appearance: PRESENT: no acute distress Head exam: PRESENT: atraumatic, normocephalic Eye exam: PRESENT: conjunctiva pink, EOMI, PERRLA. ABSENT: scleral icterus Ear exam: PRESENT: normal external ear exam Mouth exam: PRESENT: moist Respiratory exam: PRESENT: clear to auscultation ulysses, decreased breath sounds - at lung bases Cardiovascular exam: PRESENT: RRR. ABSENT: diastolic murmur, rubs, systolic murmur Vascular exam: ABSENT: pallor GI/Abdominal exam: PRESENT: normal bowel sounds, soft. ABSENT: distended, guarding, mass, organolmegaly, rebound, tenderness Extremities exam: PRESENT: pedal edema - left foot dors[place] lateral aspect of left foot, tenderness - left foot dors[place] lateral aspect of left foot Musculoskeletal exam: PRESENT: ambulatory - limited due to reported pain with weight bearing on left foot, tenderness - left foot dors[place] lateral aspect of left foot Neurological exam: PRESENT: alert, awake, oriented to person, oriented to place, oriented to time, oriented to situation, CN II-XII grossly intact. ABSENT: motor sensory deficit Psychiatric exam: PRESENT: appropriate affect, normal mood. ABSENT: homicidal ideation, suicidal ideation Skin exam: PRESENT: dry, warm Results Laboratory Results: 06/15/18 05:08 06/15/18 05:08 06/14/18 06/14/18 10:41 10:41 Creatine Kinase 25 L CK-MB (CK-2) 0.45 Troponin I < 0.012 Impressions: Chest X-Ray 06/14/18 00:00 IMPRESSION: Hiatal hernia. Right hilar prominence. No acute cardiopulmonary findings. Ankle X-Ray 06/14/18 09:51 IMPRESSION: NEGATIVE STUDY OF THE LEFT ANKLE. NO RADIOGRAPHIC EVIDENCE OF ACUTE INJURY. Head CT 06/14/18 09:51 IMPRESSION: Mild sinus disease. Chronic microvascular ischemia. No acute intracranial imaging findings. EVIDENCE OF ACUTE STROKE: NO. Knee X-Ray 06/14/18 09:51 IMPRESSION: Mild osteoarthritic changes. No acute fracture or dislocation. Pelvis X-Ray 06/14/18 09:51 IMPRESSION: NEGATIVE STUDY OF THE PELVIS. Assessment & Plan - Diagnosis (1) Transient hypotension Is this a current diagnosis for this admission?: Yes (2) Fall in home Qualifiers: Encounter type: initial encounter Qualified Code(s): W19.XXXA - Unspecified fall, initial encounter; Y92.009 - Unspecified place in unspecified non-instit utional (private) residence as the place of occurrence of the external cause Is this a current diagnosis for this admission?: Yes (3) Left ankle sprain Qualifiers: Encounter type: initial encounter Involved ligament of ankle: unspecified ligament Qualified Code(s): S93.402A - Sprain of unspecified ligament of left ankle, initial encounter Is this a current diagnosis for this admission?: Yes (4) Essential hypertension Is this a current diagnosis for this admission?: Yes (5) MEHDI (acute kidney injury) Is this a current diagnosis for this admission?: Yes (6) Abnormal urinalysis Is this a current diagnosis for this admission?: Yes (7) Peroneal tendon tear Qualifiers: Encounter type: initial encounter Laterality: left Qualified Code(s): S86.312A - Strain of muscle(s) and tendon(s) of peroneal muscle group at lower leg level, left leg, initial encounter Is this a current diagnosis for this admission?: Yes Plan: Obtain orthopedic consultation and PT thereafter if cleared for intervention. - Time Time Spent with patient: 25-34 minutes Medications reviewed and adjusted accordingly: Yes Anticipated discharge: Home with Homehealth Within: Other - Inpatient Certification Medical Necessity: Significant Comorbidiites Make Outpatient Treatment Too Risky, Need Close Monitoring Due to Risk of Patient Decompensation, Need For Continuous Telemetry Monitoring, Need for Pain Control, Risk of Complication if Not Cared For in Hospital, Risk of Diagnosis Which Will Require Inpatient Eval/Care/Monitoring Post Hospital Care: D/C Obiee Consultant Documentation - Plan Summary Plan Summary: Start on Hydralazine 10 mg po q 6hours in addition to her current anti HTN medication. D/C IV Rocephin coverage. Obtain orthopod evaluation for her MRI revealed split tear of peroneus brevis tendon. Obtain PT evaluation after orthopedic clearance to ambulate.
[2018-06-17] MEDS: ATORVASTATIN CALCIUM 20 MG TABLET PO SCH (21:09)
[2018-06-17] MEDS: HYDROCODONE/ACETAMINOPHEN 5-325 MG TABLET PO PRN (21:09)
[2018-06-17] MEDS: SERTRALINE HCL 50 MG TABLET PO SCH (21:10)
[2018-06-17] MEDS: DONEPEZIL HCL 5 MG TABLET PO SCH (21:10)
[2018-06-17] MEDS: FAMOTIDINE 20 MG TABLET PO SCH (21:11)
[2018-06-18] MEDS: HYDRALAZINE HCL 10 MG TABLET PO SCH ×4 (00:34→17:19)
[2018-06-18] MEDS: PRIMIDONE 50 MG TABLET PO SCH ×3 (05:16→22:07)
--- NOTE | 2018-06-18 08:05 | PDOC PROGRESS REPORT ---
Subjective Progress Note for:: 06/18/18 Subjective:: Nursing staff reported that patient was able to transfer to bedside commode. Still there is pain in left foot. Blood pressure remain elevated. She denied chest pain or difficulty with breathing. No nausea, vomiting, or abdomen pain. No fever or chills. Reason For Visit: FALL IN HOME WITH FAILURE TO BEAR WEIGH ON LEFT Physical Exam Vital Signs: Temp Pulse Resp BP Pulse Ox 98.0 F 64 15 168/73 H 97 06/18/18 07:36 06/18/18 07:36 06/18/18 07:36 06/18/18 07:36 06/18/18 07:36 Intake & Output 06/17/18 06/18/18 06/19/18 06:59 06:59 06:59 Intake Total 1203 1050 Output Total 1900 700 Balance -697 350 Weight 72.1 kg Physical Exam: General appearance: PRESENT: no acute distress Head exam: PRESENT: atraumatic, normocephalic Eye exam: PRESENT: conjunctiva pink, EOMI, PERRLA. ABSENT: scleral icterus Ear exam: PRESENT: normal external ear exam Mouth exam: PRESENT: moist Respiratory exam: PRESENT: clear to auscultation ulysses, decreased breath sounds - at lung bases Cardiovascular exam: PRESENT: RRR. ABSENT: diastolic murmur, rubs, systolic murmur Vascular exam: ABSENT: pallor GI/Abdominal exam: PRESENT: normal bowel sounds, soft. ABSENT: distended, guarding, mass, organomegaly, rebound, tenderness Extremities exam: PRESENT: pedal edema - left foot dorsal and lateral aspect of left foot, tenderness - left foot dorsal and lateral aspect of left foot Musculoskeletal exam: PRESENT: ambulatory - limited due to reported pain with weight bearing on left foot, tenderness - left foot dorsal and lateral aspect of left foot Neurological exam: PRESENT: alert, awake, oriented to person, oriented to place, oriented to time, oriented to situation, CN II-XII grossly intact. ABSENT: motor sensory deficit Psychiatric exam: PRESENT: appropriate affect, normal mood. ABSENT: homicidal ideation, suicidal ideation Skin exam: PRESENT: dry, warm Results Laboratory Results: 06/15/18 05:08 06/15/18 05:08 06/14/18 12:15 Clean Catch Midstream Urine Culture - Final Staph Coagulase Negative 06/14/18 06/14/18 10:41 10:41 Creatine Kinase 25 L CK-MB (CK-2) 0.45 Troponin I < 0.012 Impressions: Chest X-Ray 06/14/18 00:00 IMPRESSION: Hiatal hernia. Right hilar prominence. No acute cardiopulmonary findings. Ankle X-Ray 06/14/18 09:51 IMPRESSION: NEGATIVE STUDY OF THE LEFT ANKLE. NO RADIOGRAPHIC EVIDENCE OF ACUTE INJURY. Head CT 06/14/18 09:51 IMPRESSION: Mild sinus disease. Chronic microvascular ischemia. No acute intracranial imaging findings. EVIDENCE OF ACUTE STROKE: NO. Knee X-Ray 06/14/18 09:51 IMPRESSION: Mild osteoarthritic changes. No acute fracture or dislocation. Pelvis X-Ray 06/14/18 09:51 IMPRESSION: NEGATIVE STUDY OF THE PELVIS. Lower Extremity MRI 06/17/18 08:00 IMPRESSION: 1. No occult fracture. 2. Split tear of the peroneus brevis tendon. 3. Subtalar joint effusion. Assessment & Plan - Diagnosis (1) Transient hypotension Is this a current diagnosis for this admission?: Yes (2) Fall in home Qualifiers: Encounter type: initial encounter Qualified Code(s): W19.XXXA - Unspecified fall, initial encounter; Y92.009 - Unspecified place in unspecified non- institutional (private) residence as the place of occurrence of the external cause Is this a current diagnosis for this admission?: Yes (3) Left ankle sprain Qualifiers: Encounter type: initial encounter Involved ligament of ankle: unspecified ligament Qualified Code(s): S93.402A - Sprain of unspecified ligament of left ankle, initial encounter Is this a current diagnosis for this admission?: Yes (4) Essential hypertension Is this a current diagnosis for this admission?: Yes (5) MEHDI (acute kidney injury) Is this a current diagnosis for this admission?: Yes (6) Abnormal urinalysis Is this a current diagnosis for this admission?: Yes (7) Peroneal tendon tear Qualifiers: Encounter type: initial encounter Laterality: left Qualified Code(s): S86.312A - Strain of muscle(s) and tendon(s) of peroneal muscle group at lower leg level, left leg, initial encounter Is this a current diagnosis for this admission?: Yes - Time Time Spent with patient: 25-34 minutes Medications reviewed and adjusted accordingly: Yes Anticipated discharge: Home with Homehealth Within: Other - Inpatient Certification Based on my medical assessment, after consideration of the patient's comorbidities, presenting symptoms, or acuity I expect that the services needed warrant INPATIENT care.: Yes I certify that my determination is in accordance with my understanding of Medicare's requirements for reasonable and necessary INPATIENT services [42 CFR 412.3e].: Yes Medical Necessity: Significant Comorbidiites Make Outpatient Treatment Too Risky, Need Close Monitoring Due to Risk of Patient Decompensation, Need For Continuous Telemetry Monitoring, Need for Pain Control, Risk of Complication if Not Cared For in Hospital, Risk of Diagnosis Which Will Require Inpatient Marilee l/Care/Monitoring Post Hospital Care: D/C Assistant Pressman Documentation - Plan Summary Plan Summary: Follow up on orthopedic consult request regarding left leg/foot peroneal tendon spit tear. Adjust anti HTN mediation as needed. Her elevated blood pressure may be due to ongoing pain.
[2018-06-18] MEDS: CARVEDILOL 12.5 MG TABLET PO SCH ×2 (09:41→22:07)
[2018-06-18] MEDS: SENNOSIDES/DOCUSATE 8.6-50 MG 1 EACH TABLET PO SCH (09:41)
[2018-06-18] MEDS: ASPIRIN 81 MG TABLET, ENT COATED PO SCH (09:41)
[2018-06-18] MEDS: HYDROCODONE/ACETAMINOPHEN 5-325 MG TABLET PO PRN ×3 (09:42→22:07)
[2018-06-18] MEDS: CARBAMAZEPINE 200 MG TAB.SR.12H PO SCH ×2 (09:43→22:07)
[2018-06-18] MEDS: AMLODIPINE BESYLATE 10 MG TABLET PO SCH (12:13)
[2018-06-18] MEDS: BENAZEPRIL HCL 20 MG TABLET PO SCH (12:13)
[2018-06-18] MEDS: ALPRAZOLAM 0.25 MG TABLET PO SCH ×2 (12:15→22:09)
--- NOTE | 2018-06-18 16:02 | PDOC CONSULTATION ---
History of Present Illness Admission Date/PCP: 06/17/18 08:17 MARISSA VERO Patient complains of: Left foot pain History of Present Illness: BERNABE DORMAN is a 82 year old female who on 06/14/18 patient became lightheaded and dizzy and sustained a fall onto her left foot/ankle. Since then patient has been having pain and swelling throughout her foot with inability to weight-bear. Patient states pain is worse with any motion and weightbearing. Denies prior injury or pain. Pain 5/10. Denies numbness. Past Medical History Cardiac Medical History: Reports: Congestive Heart Failure, Coronary Artery Disease, Hyperlipidema, Hypertension Denies: Myocardial Infarction Pulmonary Medical History: Reports: Chronic Obstructive Pulmonary Disease (COPD) Denies: Asthma, Bronchitis, Pneumonia Neurological Medical History: Denies: Seizures Malignancy Medical History: Reports: Breast Cancer, Lung Cancer GI Medical History: Reports: Hiatal Hernia Musculoskeltal Medical History: Denies: Arthritis Psychiatric Medical History: Denies: Depression Hematology: Reports: Anemia Past Surgical History Past Surgical History: Reports: Cardiac Catheterization, Section, Coronary Stent, Hysterectomy, Mastectomy - Left Social History Smoking Status: Unknown if Ever Smoked Frequency of Alcohol Use: None Hx Recreational Drug Use: No Drugs: None Hx Prescription Drug Abuse: No - Advance Directive Resuscitation Status: Full Code Family History Family History: Reviewed & Not Pertinent, Hypertension Parental Family History Reviewed: No Children Family History Reviewed: No Sibling(s) Family History Reviewed.: No Medication/Allergy Home Medications: Alprazolam [Xanax 0.25 mg Tablet] 0.25 mg PO BID@06/14/18 Amlodipine Besylate/Benazepril [Lotrel 10-40 mg Capsule] 1 cap PO NOON 06/14/18 Aspirin [Ecotrin 81 mg EC Tablet] 81 mg PO DAILY 06/14/18 Carbamazepine [Carbamazepine ER] 400 mg PO Q12 06/14/18 Carvedilol [Coreg 25 mg Tablet] 25 mg PO Q12 06/14/18 Chlorthalidone [Hygroton 25 mg Tablet] 25 mg PO DAILY 06/14/18 Donepezil HCl [Aricept 5 mg Tablet] 5 mg PO QHS 06/14/18 Primidone [Mysoline 50 mg Tablet] 50 mg PO TID 06/14/18 Ranitidine HCl [Zantac] 300 mg PO QHS 06/14/18 Rosuvastatin Calcium [Crestor 10 mg Tablet] 10 mg PO QHS 06/14/18 Sertraline HCl [Zoloft 50 mg Tablet] 50 mg PO QHS 06/14/18 Allergies/Adverse Reactions: promethazine HCl [From Phenergan] Allergy (Verified 12/12/17 13:03) Review of Systems Constitutional: ABSENT: chills, fever(s), headache(s), weight gain, weight loss Eyes: ABSENT: visual disturbances Ears: ABSENT: hearing changes Cardiovascular: ABSENT: chest pain, dyspnea on exertion, edema, orthropnea, palpitations Respiratory: ABSENT: cough, hemoptysis Gastrointestinal: ABSENT: abdominal pain, constipation, diarrhea, hematemesis, hematochezia, nausea, vomiting Genitourinary: ABSENT: dysuria, hematuria Musculoskeletal: PRESENT: as per HPI Integumentary: ABSENT: rash, wounds Neurological: PRESENT: dizziness. ABSENT: abnormal gait, abnormal speech, confusion, focal weakness, syncope Psychiatric: ABSENT: anxiety, depression, homidical ideation, suicidal ideation Endocrine: ABSENT: cold intolerance, heat intolerance, menstrual abnormalities, polydipsia, polyuria Hematologic/Lymphatic: ABSENT: easy bleeding, easy bruising, lymphadenopathy Physical Exam Vital Signs: Temp Pulse Resp BP Pulse Ox 98.1 F 66 17 157/64 H 97 06/18/18 12:16 06/18/18 14:00 06/18/18 12:16 06/18/18 12:16 06/18/18 12:16 Intake & Output 06/17/18 06/18/18 06/19/18 06:59 06:59 06:59 Intake Total 1203 1050 Output Total 1900 700 Balance -697 350 Weight 72.1 kg General appearance: PRESENT: no acute distress, well-developed, well-nourished Head exam: PRESENT: atraumatic, normocephalic Eye exam: PRESENT: conjunctiva pink, EOMI, PERRLA. ABSENT: scleral icterus Ear exam: PRESENT: normal external ear exam Mouth exam: PRESENT: moist, tongue midline Neck exam: PRESENT: full ROM. ABSENT: carotid bruit, JVD, lymphadenopathy, thyromegaly Cardiovascular exam: PRESENT: RRR. ABSENT: diastolic murmur, rubs, systolic murmur Pulses: PRESENT: normal dorsalis pedis pul, +2 pedal pulses bilateral Vascular exam: PRESENT: normal capillary refill GI/Abdominal exam: PRESENT: normal bowel sounds, soft. ABSENT: distended, guarding, mass, organolmegaly, rebound, tenderness Rectal exam: PRESENT: deferred Musculoskeletal exam: PRESENT: other - Once a year LEFT foot: Swelling and ecchymosis on the dorsum of the midfoot tenderness palpation along the second metacarpal tarsal base. Pain with range of motion. No tenderness along the medial or lateral malleolus. No pain with resisted foot eversion. No sensory deficits. Dorsalis pedis pulse 2+. Neurological exam: PRESENT: alert, awake, oriented to person, oriented to place, oriented to time, oriented to situation, CN II-XII grossly intact. ABSENT: motor sensory deficit Psychiatric exam: PRESENT: appropriate affect, normal mood. ABSENT: homicidal ideation, suicidal ideation Skin exam: PRESENT: dry, intact, warm. ABSENT: cyanosis, rash Results Laboratory Results: 06/15/18 05:08 06/15/18 05:08 06/14/18 06/14/18 10:41 10:41 Creatine Kinase 25 L CK-MB (CK-2) 0.45 Troponin I < 0.012 Impressions: Chest X-Ray 06/14/18 00:00 IMPRESSION: Hiatal hernia. Right hilar prominence. No acute cardiopulmonary findings. Ankle X-Ray 06/14/18 09:51 IMPRESSION: NEGATIVE STUDY OF THE LEFT ANKLE. NO RADIOGRAPHIC EVIDENCE OF ACUTE INJURY. Head CT 06/14/18 09:51 IMPRESSION: Mild sinus disease. Chronic microvascular ischemia. No acute intracranial imaging findings. EVIDENCE OF ACUTE STROKE: NO. Knee X-Ray 06/14/18 09:51 IMPRESSION: Mild osteoarthritic changes. No acute fracture or dislocation. Pelvis X-Ray 06/14/18 09:51 IMPRESSION: NEGATIVE STUDY OF THE PELVIS. Lower Extremity MRI 06/17/18 08:00 IMPRESSION: 1. No occult fracture. 2. Split tear of the peroneus brevis tendon. 3. Subtalar joint effusion. Status: Image reviewed by me - 3 views left foot: Study demonstrates nondisplaced metacarpal base fracture no evidence of intertarsal malalignment. Assessment & Plan - Diagnosis (1) Fracture of metatarsal of left foot, closed Qualifiers: Encounter type: initial encounter Metatarsal bone: second Fracture alignment: nondisplaced Qualified Code(s): S92.325A - Nondisplaced fracture of second metatarsal bone, left foot, initial encounter for closed fracture Is this a current diagnosis for this admission?: Yes Plan: I have reviewed patient's radiographs of the ankle and MRI which demonstrate peroneal tendon disruption however this does not coincide with patient's examination findings. Radiographs of the left foot were then ordered and demonstrate nondisplaced second metatarsal base fracture which is consistent wit h patient's discomfort. Today I have recommended physical therapy with partial weightbearing using a assistive device. Also recommend pneumatic walking boot when out of bed. Patient will follow-up with me as an outpatient in 2 weeks.
--- NOTE | 2018-06-18 16:10 | RADIOLOGY REPORT (SQ) ---
EXAM DESCRIPTION: FOOT LEFT COMPLETE COMPLETED DATE/TIME: 06/18/2018 4:00 pm REASON FOR STUDY: Foot fracture R82.998 OTHER ABNORMAL FINDINGS IN URINE COMPARISON: None. NUMBER OF VIEWS: Three views. TECHNIQUE: AP, lateral and oblique radiographic images acquired of the left foot. LIMITATIONS: None. FINDINGS: MINERALIZATION: Normal. BONES: No acute fracture or dislocation. No worrisome bone lesions. JOINTS: No effusions. SOFT TISSUES: No soft tissue swelling. No foreign body. OTHER: No other significant finding. IMPRESSION: NEGATIVE STUDY OF THE LEFT FOOT. NO RADIOGRAPHIC EVIDENCE OF ACUTE INJURY. TECHNICAL DOCUMENTATION: JOB ID: [id number] [employer]- All Rights Reserved Reading location - IP/workstation name: [email or web address]
[2018-06-18] MEDS: FAMOTIDINE 20 MG TABLET PO SCH (22:07)
[2018-06-18] MEDS: SERTRALINE HCL 50 MG TABLET PO SCH (22:07)
[2018-06-18] MEDS: DONEPEZIL HCL 5 MG TABLET PO SCH (22:07)
[2018-06-18] MEDS: ATORVASTATIN CALCIUM 20 MG TABLET PO SCH (22:08)
[2018-06-19] MEDS: HYDRALAZINE HCL 10 MG TABLET PO SCH ×2 (00:50→05:34)
[2018-06-19] MEDS: PRIMIDONE 50 MG TABLET PO SCH ×3 (05:34→21:07)
[2018-06-19] MEDS: HYDROCODONE/ACETAMINOPHEN 5-325 MG TABLET PO PRN ×3 (07:37→21:07)
[2018-06-19 10:30] LABS: ABSOLUTE EOSINOPHILS # (AUTO) 0.1 10^3/uL (0.0-0.6); ABSOLUTE LYMPHOCYTES (AUTO) 0.8 10^3/uL (0.5-4.7); ABSOLUTE MONOCYTES (AUTO) 0.3 10^3/uL (0.1-1.4); ABSOLUTE NEUT (AUTO) 3.7 10^3/uL (1.7-8.2); BASOPHILS % (AUTO) 0.5 % (0-2); EOSINOPHILS % (AUTO) 2.8 % (0-6); HEMATOCRIT 34.4 % (36.0-47.0); HEMOGLOBIN 11.4 g/dL (12.0-15.5); LYMPHOCYTES % (AUTO) 16.1 % (13-45); MEAN CORPUSCULAR HEMOGLOBIN 30.4 pg (27.0-33.4); MEAN CORPUSCULAR HGB CONC 33.2 g/dL (32.0-36.0); MEAN CORPUSCULAR VOLUME 91 fl (80-97); MONOCYTES % (AUTO) 5.5 % (3-13); PLATELET COUNT 215 10^3/uL (150-450); RED BLOOD COUNT 3.76 10^6/uL (3.72-5.28); RED CELL DISTRIBUTION WIDTH 14.6 % (11.5-14.0); SEGMENTED NEUTROPHILS % (AUTO) 75.1 % (42-78); TOTAL CELLS COUNTED % (AUTO) 100 %; WHITE BLOOD COUNT 4.9 10^3/uL (4.0-10.5)
[2018-06-19 11:04] LABS: ANION GAP 10 (5-19); BLOOD UREA NITROGEN 23 mg/dL (7-20); CALCIUM 9.9 mg/dL (8.4-10.2); CARBON DIOXIDE 27 mmol/L (22-30); CHLORIDE 102 mmol/L (98-107); GLUCOSE 154 mg/dL (75-110); POTASSIUM 4.8 mmol/L (3.6-5.0)
[2018-06-19] MEDS: SENNOSIDES/DOCUSATE 8.6-50 MG 1 EACH TABLET PO SCH (11:04)
[2018-06-19] MEDS: CARVEDILOL 12.5 MG TABLET PO SCH ×2 (11:05→21:07)
[2018-06-19] MEDS: ASPIRIN 81 MG TABLET, ENT COATED PO SCH (11:06)
[2018-06-19] MEDS: CARBAMAZEPINE 200 MG TAB.SR.12H PO SCH ×2 (11:07→21:07)
[2018-06-19] MEDS: HYDRALAZINE HCL 25 MG TABLET PO SCH ×3 (11:30→23:55)
[2018-06-19] MEDS: AMLODIPINE BESYLATE 10 MG TABLET PO SCH (11:31)
[2018-06-19] MEDS: BENAZEPRIL HCL 20 MG TABLET PO SCH (11:31)
[2018-06-19] MEDS: ALPRAZOLAM 0.25 MG TABLET PO SCH ×2 (14:23→21:07)
--- NOTE | 2018-06-19 19:12 | PDOC PROGRESS REPORT ---
Subjective Progress Note for:: 06/19/18 Subjective:: Patient reported no pain in her left foot as long as she is not weight bearing. No chest pain or difficulty with breathing. No nausea, vomiting, or abdominal pain. No fever or chills. Reason For Visit: FALL IN HOME WITH FAILURE TO BEAR WEIGH ON LEFT Physical Exam Vital Signs: Temp Pulse Resp BP Pulse Ox 97.5 F 69 17 169/71 H 97 06/19/18 04:37 06/19/18 07:00 06/19/18 04:37 06/19/18 04:37 06/19/18 04:37 Intake & Output 06/18/18 06/19/18 06/20/18 06:59 06:59 06:59 Intake Total 1050 320 Output Total 700 800 Balance 350 -480 Weight 72.1 kg Physical Exam: General appearance: PRESENT: no acute distress Head exam: PRESENT: atraumatic, normocephalic Eye exam: PRESENT: conjunctiva pink, EOMI, PERRLA. ABSENT: pallor, scleral icterus Respiratory exam: PRESENT: clear to auscultation ulysses, decreased breath sounds - at lung bases Cardiovascular exam: PRESENT: RRR. ABSENT: diastolic murmur, rubs, systolic murmur GI/Abdominal exam: PRESENT: normal bowel sounds, soft. ABSENT: distended, guarding, mass, organomegaly, rebound, tenderness Extremities exam: PRESENT: pedal edema - left foot dorsal and lateral aspect of left foot, tenderness - left foot dorsal and lateral aspect of left foot Musculoskeletal exam: PRESENT: ambulatory - limited due to reported pain with weight bearing on left foot, tenderness - left foot dorsal and lateral aspect of left foot Neurological exam: PRESENT: alert, awake, oriented to person, oriented to place, oriented to time, oriented to situation, CN II-XII grossly intact. ABSENT: motor sensory deficit Psychiatric exam: PRESENT: appropriate affect, normal mood. ABSENT: homicidal ideation, suicidal ideation Skin exam: PRESENT: dry, warm Results Laboratory Results: 06/15/18 05:08 06/15/18 05:08 06/14/18 06/14/18 10:41 10:41 Creatine Kinase 25 L CK-MB (CK-2) 0.45 Troponin I < 0.012 Impressions: Chest X-Ray 06/14/18 00:00 IMPRESSION: Hiatal hernia. Right hilar prominence. No acute cardiopulmonary findings. Ankle X-Ray 06/14/18 09:51 IMPRESSION: NEGATIVE STUDY OF THE LEFT ANKLE. NO RADIOGRAPHIC EVIDENCE OF ACUTE INJURY. Head CT 06/14/18 09:51 IMPRESSION: Mild sinus disease. Chronic microvascular ischemia. No acute intracranial imaging findings. EVIDENCE OF ACUTE STROKE: NO. Knee X-Ray 06/14/18 09:51 IMPRESSION: Mild osteoarthritic changes. No acute fracture or dislocation. Pelvis X-Ray 06/14/18 09:51 IMPRESSION: NEGATIVE STUDY OF THE PELVIS. Lower Extremity MRI 06/17/18 08:00 IMPRESSION: 1. No occult fracture. 2. Split tear of the peroneus brevis tendon. 3. Subtalar joint effusion. Foot X-Ray 06/18/18 00:00 IMPRESSION: NEGATIVE STUDY OF THE LEFT FOOT. NO RADIOGRAPHIC EVIDENCE OF ACUTE INJURY. Assessment & Plan - Diagnosis (1) Transient hypotension Is this a current diagnosis for this admission?: Yes (2) Fall in home Qualifiers: Encounter type: initial encounter Qualified Code(s): W19.XXXA - Unspecified fall, initial encounter; Y92.009 - Unspecified place in unspecified non- institutional (private) residence as the place of occurrence of the external cause Is this a current diagnosis for this admission?: Yes (3) Left ankle sprain Qualifiers: Encounter type: initial encounter Involved ligament of ankle: unspecified ligament Qualified Code(s): S93.402A - Sprain of unspecified ligament of left ankle, initial encounter Is this a current diagnosis for this admission?: Yes (4) Essential hypertension Is this a current diagnosis for this admission?: Yes Plan: Blood pressure control remain a problem. I will increase her Hydralazine to 25 mg p.o q6 hours. (5) MEHDI (acute kidney injury) Is this a current diagnosis for this admission?: Yes Plan: Improved with IV hydration. (6) Abnormal urinalysis Is this a current diagnosis for this admission?: Yes (7) Peroneal tendon tear Qualifiers: Encounter type: initial encounter Laterality: left Qualified Code(s): S86.312A - Strain of muscle(s) and tendon(s) of peroneal muscle group at lower leg level, left leg, initial encounter Is this a current diagnosis for this admission?: Yes (8) Fracture of metatarsal of left foot, closed Qualifiers: Encounter type: initial encounter Metatarsal bone: second Fracture al ignment: nondisplaced Qualified Code(s): S92.325A - Nondisplaced fracture of second metatarsal bone, left foot, initial encounter for closed fracture Is this a current diagnosis for this admission?: Yes Plan: Continue physical therapy intervention. Patient expressed wish for SNF rehabilitation placement due to her living situation and concern about fall risk due to ambulatory limitation. - Time Time Spent with patient: 25-34 minutes Medications reviewed and adjusted accordingly: Yes Anticipated discharge: SNF Within: Other - Inpatient Certification Based on my medical assessment, after consideration of the patient's comorbidities, presenting symptoms, or acuity I expect that the services needed warrant INPATIENT care.: Yes I certify that my determination is in accordance with my understanding of Medicare's requirements for reasonable and necessary INPATIENT services [42 CFR 412.3e].: Yes Medical Necessity: Significant Comorbidiites Make Outpatient Treatment Too Risky, Need Close Monitoring Due to Risk of Patient Decompensation, Risk of Complication if Not Cared For in Hospital, Risk of Diagnosis Which Will Require Inpatient Eval/Care/Monitoring Post Hospital Care: D/C or Transfer Summary - Plan Summary Plan Summary: Continue medication management as per outlined care plan.
[2018-06-19] MEDS: ATORVASTATIN CALCIUM 20 MG TABLET PO SCH (21:07)
[2018-06-19] MEDS: DONEPEZIL HCL 5 MG TABLET PO SCH (21:07)
[2018-06-19] MEDS: FAMOTIDINE 20 MG TABLET PO SCH (21:07)
[2018-06-19] MEDS: SERTRALINE HCL 50 MG TABLET PO SCH (21:08)
[2018-06-20] MEDS: HYDROCODONE/ACETAMINOPHEN 5-325 MG TABLET PO PRN ×3 (05:10→21:21)
[2018-06-20] MEDS: HYDRALAZINE HCL 25 MG TABLET PO SCH ×4 (05:10→23:36)
[2018-06-20] MEDS: PRIMIDONE 50 MG TABLET PO SCH ×3 (05:11→21:18)
--- NOTE | 2018-06-20 08:20 | PDOC PROGRESS REPORT ---
Subjective Progress Note for:: 06/20/18 Subjective:: Patient reported concern about wearing non-weight bearing boot while in bed. Her left foot pain is fairly controlled on current management. No chest pain or difficulty with breathing. No nausea, vomiting, or abdominal pain. No fever or chills. Reason For Visit: FALL IN HOME WITH FAILURE TO BEAR WEIGH ON LEFT Physical Exam Vital Signs: Temp Pulse Resp BP Pulse Ox 97.9 F 63 16 158/70 H 96 06/20/18 05:00 06/20/18 07:00 06/20/18 05:00 06/20/18 05:00 06/20/18 05:00 Intake & Output 06/19/18 06/20/18 06/21/18 06:59 06:59 06:59 Intake Total 320 700 Output Total 800 1350 Balance -480 -650 Physical Exam: General appearance: PRESENT: no acute distress Head exam: PRESENT: atraumatic, normocephalic Eye exam: PRESENT: conjunctiva pink, EOMI, PERRLA. ABSENT: pallor, scleral icterus Respiratory exam: PRESENT: clear to auscultation ulysses, decreased breath sounds - at lung bases Cardiovascular exam: PRESENT: RRR. ABSENT: diastolic murmur, rubs, systolic murmur GI/Abdominal exam: PRESENT: normal bowel sounds, soft. ABSENT: distended, guarding, mass, organomegaly, rebound, tenderness Extremities exam: PRESENT: pedal edema - left foot dorsal and lateral aspect of left foot, tenderness - left foot dorsal and lateral aspect of left foot Musculoskeletal exam: PRESENT: ambulatory - limited due to reported pain with weight bearing on left foot, tenderness - left foot dorsal and lateral aspect of left foot Neurological exam: PRESENT: alert, awake, oriented to person, oriented to place, oriented to time, oriented to situation, CN II-XII grossly intact. ABSENT: motor sensory deficit Psychiatric exam: PRESENT: appropriate affect, normal mood. ABSENT: homicidal ideation, suicidal ideation Skin exam: PRESENT: dry, warm. Results Laboratory Results: 06/19/18 09:24 06/19/18 09:24 06/19/18 06/19/18 09:24 09:24 WBC 4.9 RBC 3.76 Hgb 11.4 L Hct 34.4 L MCV 91 MCH 30.4 MCHC 33.2 RDW 14.6 H Plt Count 215 Seg Neutrophils % 75.1 Lymphocytes % 16.1 Monocytes % 5.5 Eosinophils % 2.8 Basophils % 0.5 Absolute Neutrophils 3.7 Absolute Lymphocytes 0.8 Absolute Monocytes 0.3 Absolute Eosinophils 0.1 Absolute Basophils 0.0 Sodium 139.0 Potassium 4.8 Chloride 102 Carbon Dioxide 27 Anion Gap 10 BUN 23 H Creatinine 1.11 Est GFR ( Amer) 57 L Est GFR (Non-Af Amer) 47 L Glucose 154 H Calcium 9.9 06/14/18 06/14/18 10:41 10:41 Creatine Kinase 25 L CK-MB (CK-2) 0.45 Troponin I < 0.012 Impressions: Chest X-Ray 06/14/18 00:00 IMPRESSION: Hiatal hernia. Right hilar prominence. No acute cardiopulmonary findings. Ankle X-Ray 06/14/18 09:51 IMPRESSION: NEGATIVE STUDY OF THE LEFT ANKLE. NO RADIOGRAPHIC EVIDENCE OF ACUTE INJURY. Head CT 06/14/18 09:51 IMPRESSION: Mild sinus disease. Chronic microvascular ischemia. No acute intracranial imaging findings. EVIDENCE OF ACUTE STROKE: NO. Knee X-Ray 06/14/18 09:51 IMPRESSION: Mild osteoarthritic changes. No acute fracture or dislocation. Pelvis X-Ray 06/14/18 09:51 IMPRESSION: NEGATIVE STUDY OF THE PELVIS. Lower Extremity MRI 06/17/18 08:00 IMPRESSION: 1. No occult fracture. 2. Split tear of the peroneus brevis tendon. 3. Subtalar joint effusion. Foot X-Ray 06/18/18 00:00 IMPRESSION: NEGATIVE STUDY OF THE LEFT FOOT. NO RADIOGRAPHIC EVIDENCE OF ACUTE INJURY. Assessment & Plan - Diagnosis (1) Transient hypotension Is this a current diagnosis for this admission?: Yes (2) Fall in home Qualifiers: Encounter type: initial encounter Qualified Code(s): W19.XXXA - Unspecified fall, initial encounter; Y92.009 - Unspecified place in unspecified non- institutional (private) residence as the place of occurrence of the external cause Is this a current diagnosis for this admission?: Yes (3) Left ankle sprain Qualifiers: Encounter type: initial encounter Involved ligament of ankle: unspecified ligament Qualified Code(s): S93.402A - Sprain of unspecified ligament of left ankle, initial encounter Is this a current diagnosis for this admission?: Yes (4) Essential hypertension Is this a current diagnosis for this admission?: Yes (5) MEHDI (acute kidney injury) Is this a current diagnosis for this admission?: Yes (6) Abnormal urinalysis Is this a current diagnosis for this admission?: Yes (7) Peroneal tendon tear Qualifiers: Encounter type: initial encounter Laterality: left Qualified Code(s): S86.312A - Strain of muscle(s) and tendon(s) of peroneal muscle group at lower leg level, left leg, initial encounter Is this a current diagnosis for this admission?: Yes (8) Fracture of metatarsal of left foot, closed Qualifiers: Encounter type: initial encounter Metatarsal bone: second Fracture alignment: nondisplaced Qualified Code(s): S92.325A - Nondisplaced fracture of second metatarsal bone, left foot, initial encounter for closed fracture Is this a current diagnosis for this admission?: Yes - Time Time Spent with patient: 25-34 minutes Medications reviewed and adjusted accordingly: Yes Anticipated discharge: SNF - Inpatient Certification Based on my medical assessment, after consideration of the patient's comorbidities, presenting symptoms, or acuity I expect that the services needed warrant INPATIENT care.: Yes I certify that my determination is in accordance with my understanding of Medicare's requirements for reasonable and necessary INPATIENT services [42 CFR 412.3e].: Yes Medical Necessity: Significant Comorbidiites Make Outpatient Treatment Too Risky, Need Close Monitoring Due to Risk of Patient Decompensation, Risk of Complication if Not Cared For in Hospital, Risk of Diagnosis Which Will Require Inpatient Eval/Care/Monitoring Post Hospital Care: D/C or Transfer Summary - Plan Summary Plan Summary: Continue current medication management. Follow up with SNF placement.
[2018-06-20] MEDS: SENNOSIDES/DOCUSATE 8.6-50 MG 1 EACH TABLET PO SCH (10:09)
[2018-06-20] MEDS: CARVEDILOL 12.5 MG TABLET PO SCH ×2 (10:10→21:17)
[2018-06-20] MEDS: ASPIRIN 81 MG TABLET, ENT COATED PO SCH (10:10)
[2018-06-20] MEDS: CARBAMAZEPINE 200 MG TAB.SR.12H PO SCH ×2 (10:11→21:29)
[2018-06-20] MEDS: BENAZEPRIL HCL 20 MG TABLET PO SCH (14:16)
[2018-06-20] MEDS: AMLODIPINE BESYLATE 10 MG TABLET PO SCH (14:17)
[2018-06-20] MEDS: ALPRAZOLAM 0.25 MG TABLET PO SCH ×2 (14:18→21:17)
[2018-06-20] MEDS: FAMOTIDINE 20 MG TABLET PO SCH (21:17)
[2018-06-20] MEDS: ATORVASTATIN CALCIUM 20 MG TABLET PO SCH (21:18)
[2018-06-20] MEDS: SERTRALINE HCL 50 MG TABLET PO SCH (21:18)
[2018-06-20] MEDS: DONEPEZIL HCL 5 MG TABLET PO SCH (21:18)
[2018-06-21] MEDS: HYDROCODONE/ACETAMINOPHEN 5-325 MG TABLET PO PRN (05:14)
[2018-06-21] MEDS: HYDRALAZINE HCL 25 MG TABLET PO SCH ×2 (05:15→12:38)
[2018-06-21] MEDS: PRIMIDONE 50 MG TABLET PO SCH (05:15)
--- NOTE | 2018-06-21 08:26 | PDOC TRANSFER SUMMARY ---
General - Admit/Disc Date/PCP Admission Date/Primary Care Provider: 06/17/18 08:17 MARISSARAMONE PHAM Discharge Date: 06/21/18 - Discharge Diagnosis (1) Transient hypotension Is this a current diagnosis for this admission?: Yes (2) Fall in home Is this a current diagnosis for this admission?: Yes (3) Left ankle sprain Is this a current diagnosis for this admission?: Yes (4) Essential hypertension Is this a current diagnosis for this admission?: Yes (5) MEHDI (acute kidney injury) Is this a current diagnosis for this admission?: Yes (6) Abnormal urinalysis Is this a current diagnosis for this admission?: Yes (7) Peroneal tendon tear Is this a current diagnosis for this admission?: Yes (8) Fracture of metatarsal of left foot, closed Is this a current diagnosis for this admission?: Yes - Additional Information Resuscitation Status: Full Code Prescriptions: Hydralazine HCl [Apresoline 25 mg Tablet] 25 mg PO Q6 #120 tablet Hydrocodone/Acetaminophen [Alderson 5-325 mg Tablet] 1 tab PO Q6HP PRN #30 tablet PRN Reason: Sennosides/Docusate 8.6-50 mg [Senna Plus Tablet] 2 each PO DAILY #60 tablet Home Medications: Alprazolam [Xanax 0.25 mg Tablet] 0.25 mg PO BID@06/14/18 Amlodipine Besylate/Benazepril [Lotrel 10-40 mg Capsule] 1 cap PO NOON 06/14/18 Aspirin [Ecotrin 81 mg EC Tablet] 81 mg PO DAILY 06/14/18 Carbamazepine [Carbamazepine ER] 400 mg PO Q12 06/14/18 Carvedilol [Coreg 25 mg Tablet] 25 mg PO Q12 06/14/18 Chlorthalidone [Hygroton 25 mg Tablet] 25 mg PO DAILY 06/14/18 Donepezil HCl [Aricept 5 mg Tablet] 5 mg PO QHS 06/14/18 Primidone [Mysoline 50 mg Tablet] 50 mg PO TID 06/14/18 Ranitidine HCl [Zantac] 300 mg PO QHS 06/14/18 Rosuvastatin Calcium [Crestor 10 mg Tablet] 10 mg PO QHS 06/14/18 Sertraline HCl [Zoloft 50 mg Tablet] 50 mg PO QHS 06/14/18 Hydralazine HCl [Apresoline 25 mg Tablet] 25 mg PO Q6 #120 tablet 06/21/18 Hydrocodone/Acetaminophen [Alderson 5-325 mg Tablet] 1 tab PO Q6HP PRN #30 tablet 06/21/18 Sennosides/Docusate 8.6-50 mg [Senna Plus Tablet] 2 each PO DAILY #60 tablet 06/21/18 History of Present Illness Admission Date/PCP: 06/17/18 08:17 MARISSA PHAM History of Present Illness: BERNABE DORMAN is a 82 year old female known to my practice who presented to the ED with compliant of a fall at home. She reported that she eat and took her medication for this morning. She subsequently felt dizzy but did not passed out. She attempted to move into her living room but was unable and in the process fell. She reported that her post medication blood pressure reading was in the 80's. Patient reported prior episodes of dizziness and lightheadedness with her anti hypertensive medication but no fall or syncope. She denied any preceding palpitation, chest pain, headache or focal weakness. No abdominal pain, nausea or vomiting. She reported left ankle region drawing pain and surrounding swelling that developed after her fall. Her initial evaluation in the ED revealed systolic blood pressure in the 130's with subsequent elevation and upon arrival on telemetry floor was significantly high to warrant administration of IV Hydralazine. Her chemistry suggested acute kidney injury and abnormal urinalysis with possible urinary tract infection and probable cause of her presentation. Her morbidities include hypertension, mixed anxiety with depression, chronic diastolic heart failure, COPD, Hyperlipidemia, sleep apnea, and osteoarthritis. She was advised admission to telemetry floor for further evaluation and management. Hospital Course Hospital Course: She was initially managed with IV Hydralazine and eventually transition to oral route. Her bl9ood pressure remain an issue and probably related to pain in her l eft foot. Due to her persistent left pain and difficulty with ambulation, she had lower extremity MRI that suggested no acute fracture but split tear of her left leg peroneal tendon. She was evaluated by orthopedic solutions consultant and repeat foot X ray revealed second metatarsal proximal fracture. She has been in physical therapy program with non-weight bearing boot. She continue to complain about pain in the left foot particularly at night time and with ambulation. She is requesting for Percocet usage for pain management upon transfer to SNF. She has offered bed at [facility] and she will be transferred to the facility today. She will follow up in the office upon discharge from the SNF as directed upon discharge. Physical Exam Vital Signs: Temp Pulse Resp BP Pulse Ox 98.6 F 67 17 164/67 H 100 06/21/18 04:00 06/21/18 07:00 06/21/18 04:00 06/21/18 04:00 06/21/18 04:00 Intake & Output 06/20/18 06/21/18 06/22/18 06:59 06:59 06:59 Intake Total 700 838 Output Total 1350 Balance -650 838 Weight 74.9 kg General appearance: PRESENT: no acute distress Head exam: PRESENT: atraumatic, normocephalic Eye exam: PRESENT: conjunctiva pink, EOMI, PERRLA. ABSENT: pallor, scleral icterus Respiratory exam: PRESENT: clear to auscultation ulysses Cardiovascular exam: PRESENT: RRR. ABSENT: diastolic murmur, rubs, systolic murmur GI/Abdominal exam: PRESENT: normal bowel sounds, soft. ABSENT: distended, guarding, mass, organomegaly, rebound, tenderness Extremities exam: PRESENT: pedal edema - left foot dorsal and lateral aspect of left foot, tenderness - left foot dorsal and lateral aspect of left foot Musculoskeletal exam: PRESENT: ambulatory - limited due to reported pain with weight bearing on left foot, tenderness - left foot dorsal and lateral aspect of left foot Neurological exam: PRESENT: alert, awake, oriented to person, oriented to place, oriented to time, oriented to situation, CN II-XII grossly intact. ABSENT: motor sensory deficit Psychiatric exam: PRESENT: appropriate affect, normal mood. ABSENT: homicidal ideation, suicidal ideation Skin exam: PRESENT: dry, warm. Results Laboratory Results: 06/19/18 09:24 06/19/18 09:24 06/14/18 06/14/18 10:41 10:41 Creatine Kinase 25 L CK-MB (CK-2) 0.45 Troponin I < 0.012 Impressions: Chest X-Ray 06/14/18 00:00 IMPRESSION: Hiatal hernia. Right hilar prominence. No acute cardiopulmonary findings. Ankle X-Ray 06/14/18 09:51 IMPRESSION: NEGATIVE STUDY OF THE LEFT ANKLE. NO RADIOGRAPHIC EVIDENCE OF ACUTE INJURY. Head CT 06/14/18 09:51 IMPRESSION: Mild sinus disease. Chronic microvascular ischemia. No acute intracranial imaging findings. EVIDENCE OF ACUTE STROKE: NO. Knee X-Ray 06/14/18 09:51 IMPRESSION: Mild osteoarthritic changes. No acute fracture or dislocation. Pelvis X-Ray 06/14/18 09:51 IMPRESSION: NEGATIVE STUDY OF THE PELVIS. Lower Extremity MRI 06/17/18 08:00 IMPRESSION: 1. No occult fracture. 2. Split tear of the peroneus brevis tendon. 3. Subtalar joint effusion. Foot X-Ray 06/18/18 00:00 IMPRESSION: NEGATIVE STUDY OF THE LEFT FOOT. NO RADIOGRAPHIC EVIDENCE OF ACUTE INJURY. Transfer Plan - Disposition Transfer Plan: Transfer to [facility]. Qualifiers - * PATIENT BEING DISCHARGED WITH ANY OF THE FOLLOWING DIAGNOSIS: No Plan Discharge Plan: Transfer to [facility] today. Follow up in the office as instructed upon discharge from the SNF. SNF staff should call office for appointment before her discharge from the facility.
[2018-06-21] MEDS: CARVEDILOL 12.5 MG TABLET PO SCH (09:01)
[2018-06-21] MEDS: CARBAMAZEPINE 200 MG TAB.SR.12H PO SCH (09:01)
[2018-06-21] MEDS: ASPIRIN 81 MG TABLET, ENT COATED PO SCH (09:02)
[2018-06-21] MEDS: SENNOSIDES/DOCUSATE 8.6-50 MG 1 EACH TABLET PO SCH (09:02)
[2018-06-21 12:35] VITALS: BP 159/68
[2018-06-21] MEDS: AMLODIPINE BESYLATE 10 MG TABLET PO SCH (12:38)
[2018-06-21] MEDS: BENAZEPRIL HCL 20 MG TABLET PO SCH (12:38)
[2018-06-21] MEDS: ALPRAZOLAM 0.25 MG TABLET PO SCH (12:38)
== END 2018-06-21 14:56 | DRG 563 ==
LOC: ER 09:30 → EH 13:42 → 5 18:21 → OBSVTOIN 06-17 08:17
PROVIDERS: ADMIT Internal Medicine Geriatric Medicine; ATTEND Internal Medicine Geriatric Medicine
DX: S92.325A Nondisplaced fracture of second metatarsal bone, left foot, initial encounter for closed fracture (principal); N17.9 Acute kidney failure, unspecified; I50.32 Chronic diastolic (congestive) heart failure; W19.XXXA Unspecified fall, initial encounter; I95.89 Other hypotension; S86.312A Strain of muscle(s) and tendon(s) of peroneal muscle group at lower leg level, left leg, initial encounter; F41.8 Other specified anxiety disorders; I11.0 Hypertensive heart disease with heart failure; J44.9 Chronic obstructive pulmonary disease, unspecified; E78.5 Hyperlipidemia, unspecified; G47.30 Sleep apnea, unspecified; I25.10 Atherosclerotic heart disease of native coronary artery without angina pectoris; D64.9 Anemia, unspecified; Y92.018 Other place in single-family (private) house as the place of occurrence of the external cause; Z79.899 Other long term (current) drug therapy; Z79.891 Long term (current) use of opiate analgesic; Z85.3 Personal history of malignant neoplasm of breast; Z85.118 Personal history of other malignant neoplasm of bronchus and lung; Z95.5 Presence of coronary angioplasty implant and graft; Z90.710 Acquired absence of both cervix and uterus; Z90.12 Acquired absence of left breast and nipple; Z82.49 Family history of ischemic heart disease and other diseases of the circulatory system; Z88.8 Allergy status to other drugs, medicaments and biological substances
CPT/HCPCS: 36415; 70450; 71045; 72170; 80048; 80053; 81001; 82550; 82553; 83605; 84484; 85025; 87086; 93005; 93010; 96360; 99285; G0378; J0360; J0696; J3490; J7030; J7040; L4386

== ENCOUNTER 2018-10-18 19:25 | Emergency (ER) | payer MEDICARE, OTHER ==
--- NOTE | 2018-10-18 19:44 | ER Document Report ---
ED General - General Chief Complaint: Fall Stated Complaint: FALL,RIGHT HIP AND FOREARM PAIN Time Seen by Provider: 10/18/18 19:44 Primary Care Provider: MARISSA PHAM MD [Primary Care Provider] - Follow up as needed Notes: Patient is a 83-year-old female with hypertension that presents to the emergency department for chief complaint of hip pain and wrist pain after fall. Patient states that she stood up from her chair, and her legs gave out on her and she fell onto her right hip and her outstretched right arm. She denies head injury but she did fall onto a tile floor. Denies loss of consciousness associated with this. She is complaining of 7 out of 10 pain in her hip and right wrist because it a constant aching pain, that is worse with any movement of her hip or wrist. She denies having any numbness, tingling or weakness in her arms or legs, denies any neck pain, headache, lightheadedness, dizziness, blurred vision. No other complaints at this time. She denies being on any blood thinners. Past Medical History: Hypertension Past Surgical History: PCI with stenting, Social History: Denies tobacco, alcohol or drug use, lives at home. Family History: Reviewed and noncontributory for presenting illness Allergies: Reviewed, see documented allergy list. REVIEW OF SYSTEMS: Other than noted above, the 12 point review of systems was reviewed with the patient and were negative, all pertinent findings are included in the HPI. PHYSICAL EXAMINATION: Vital signs reviewed, nursing noted reviewed. GENERAL: Elderly female, appears uncomfortable on exam HEAD: Atraumatic, normocephalic. EYES: Eyes appear normal, extraocular movements intact, sclera anicteric, conjunctiva are normal. PERRLA ENT: nares patent, oropharynx clear without exudates. Moist mucous membranes. TMs appear normal bilaterally. NECK: Normal range of motion, supple without lymphadenopathy, no midline tenderness. LUNGS: Breath sounds clear to auscultation bilaterally and equal. No wheezes rales or rhonchi. HEART: Regular rate and rhythm without murmurs ABDOMEN: Soft, nontender, normoactive bowel sounds. No rebound, guarding, or rigidity. No masses appreciated. EXTREMITIES: The right lower extremity, is shortened, and externally rotated, painful with logroll on the right, and patient is unable to flex the hip on the right. She is neurovascularly intact distally of that extremity however. The knee and ankle are nontender. The left lower extremity is unremarkable, good range of motion and nontender. The right wrist does have deformity distally and dorsally on the radius, with tenderness to palpation and bruising noted. There is no open wounds at this area, on the right elbow, there is a small skin tear, with good range of motion and is nontender to palpate. The right shoulder is unremarkable and the clavicles nontender. The left upper extremity is unremarkable. NEUROLOGICAL: No focal neurological deficits. Moves all extremities spontaneously Motor and sensory grossly intact on exam. PSYCH: Normal mood, normal affect. SKIN: Warm, Dry, normal turgor, no rashes or lesions noted on exposed skin TRAVEL OUTSIDE OF THE [place] IN LAST 30 DAYS: No - Related Data Allergies/Adverse Reactions: promethazine HCl [From Phenergan] Allergy (Verified 12/12/17 13:03) Past Medical History - Social History Smoking Status: Never Smoker Family History: Reviewed & Not Pertinent, Hypertension - Past Medical History Cardiac Medical History: Reports: Hx Congestive Heart Failure, Hx Coronary Artery Disease, Hx Hypercholesterolemia, Hx Hypertension Denies: Hx Heart Attack Pulmonary Medical History: Reports: Hx COPD Denies: Hx Asthma, Hx Bronchitis, Hx Pneumonia Neurological Medical History: Denies: Hx Cerebrovascular Accident, Hx Seizures Renal/ Medical History: Denies: Hx Peritoneal Dialysis Malignancy Medical History: Reports: Hx Breast Cancer, Hx Lung Cancer GI Medical History: Reports: Hx Hiatal Hernia, Hx Ulcer Musculoskeletal Medical History: Denies Hx Arthritis Psychiatric Medical History: Denies: Hx Depression Past Surgical History: Reports: Hx Abdominal Surgery, Hx Breast Surgery - Left mastectomy for breast cancer, Hx Cardiac Catheterization, Hx Cardiac Surgery, Hx Section, Hx Coronary Stent, Hx Gynecologic Surgery - , Hx Hysterectomy, Hx Mastectomy - Left - Immunizations Hx Diphtheria, Pertussis, Tetanus Vaccination: Yes Hx Pneumococcal Vaccination: 03/26/14 Physical Exam - Vital signs Vitals: Temp Pulse Resp BP Pulse Ox 98.0 F 76 16 212/87 H 95 10/18/18 19:44 10/18/18 19:44 10/18/18 19:44 10/18/18 19:44 10/18/18 19:44 Course - Re-evaluation Re-evalutation: Patient seen and examined vital signs reviewed. Laboratory data and imaging were ordered as appropriate for the patient's presenting symptoms and complaint, with consideration of any critical or life threatening conditions that may be associated with their obtained history and exam as noted above. Patient was treated with IV fentanyl and Zofran Results were reviewed when available and demonstrated right hip x-rays demonstrated right femoral neck fracture with 100% displacement, right wrist films demonstrated distal radius fracture, CT of the head and cervical spine were negative, chest x-ray negative for acute findings. The patient was re-evaluated and was still having some pain, discussed results Evaluation was most consistent with right hip fracture, femoral neck, and distal radius fracture. Results were discussed with the patient at this point after careful consideration I feel that that patient should be transferred to [facility] due to need for orthopedic surgery, as you do not have them cotton puller today. This was discussed with the patient that it is in the best interest for their care to be transferred, the risks and benefits of transfer were discussed, including but not limited to clinical deterioration during transport, respiratory distress, and potential for traumatic injuries. Patient agreed with this plan of care. *Note is created using voice recognition software and may contain spelling, syntax or grammatical errors. Case was discussed with Dr. ramírez, with orthopedic surgery who accepted the patient at [facility]. Awaiting bed assignment. Wrist X-Ray 10/18/18 19:51 IMPRESSION: Acute nondisplaced fracture of the distal radius. Hip/Pelvis X-Ray 10/18/18 19:52 IMPRESSION: Acute displaced right femoral neck fracture. Cervical Spine CT 10/18/18 19:54 IMPRESSION: No acute fracture or subluxation. Scattered small lucent defects within the vertebral bodies likely secondary to osteopenia however metastatic disease cannot be excluded. Correlation with a bone scan recommended if indicated. 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 Correlation with a sonogram could be helpful for further evaluation. Chest X-Ray 10/18/18 19:54 IMPRESSION: No evidence of acute cardiopulmonary disease. Head CT 10/18/18 19:54 IMPRESSION: No acute intracranial abnormalities. - Vital Signs Vital signs: Temp Pulse Resp BP Pulse Ox 98.0 F 76 17 187/86 H 90 L 10/18/18 19:44 10/18/18 19:44 10/18/18 21:31 10/18/18 21:31 10/18/18 21:31 Discharge - Discharge Clinical Impression: Displaced fracture of right femoral neck Closed fracture of right distal radius Qualifiers: Encounter type: initial encounter Fracture morphology: unspecified fracture mo rphology Qualified Code(s): S52.501A - Unspecified fracture of the lower end of right radius, initial encounter for closed fracture Fall Qualifiers: Encounter type: initial encounter Qualified Code(s): W19.XXXA - Unspecified fall, initial encounter Condition: Stable Disposition: [facility] Referrals: MARISSA PHAM MD [Primary Care Provider] - Follow up as needed
[2018-10-18] MEDS ORDERED: FENTANYL CITRATE INJ/PF 100 MCG/2 ML AMPUL IV ONE (19:55)
[2018-10-18] MEDS ORDERED: ONDANSETRON HCL INJ/PF 4 MG/2 ML SDV IV ONE (19:56)
--- NOTE | 2018-10-18 21:00 | RADIOLOGY REPORT (SQ) ---
EXAM DESCRIPTION: XR CHEST 1 VIEW COMPLETED DATE/TME: 10/18/2018 19:54 CLINICAL HISTORY: fall COMPARISON: June 14, 2018 FINDINGS: Cardiac silhouette is within normal limits. There is no focal parenchymal or pleural disease. There is no acute osseous process visualized. EKG leads project over the chest. There is atherosclerosis. Patient is rotated. Contour of the lower mediastinum is unchanged, prior CT demonstrated a hiatal hernia. IMPRESSION: No evidence of acute cardiopulmonary disease.
--- NOTE | 2018-10-18 21:02 | RADIOLOGY REPORT (SQ) ---
EXAM DESCRIPTION: XR HIP 2 OR MORE VIEWS COMPLETED DATE/TME: 10/18/2018 19:52 CLINICAL HISTORY: right hip pain, injury COMPARISON: None FINDINGS: Two x-ray views of the right hip and frontal view of the pelvis were submitted. There is an acute displaced fracture of the right femoral neck. There is no dislocation. There is no radiopaque foreign body material. IMPRESSION: Acute displaced right femoral neck fracture.
--- NOTE | 2018-10-18 21:04 | RADIOLOGY REPORT (SQ) ---
EXAM DESCRIPTION: XR WRIST 3 VIEWS RIGHT COMPLETED DATE/TME: 10/18/2018 19:51 CLINICAL HISTORY: right wrist pain, injury COMPARISON: None FINDINGS: Three x-ray views of the right wrist were submitted. There is an acute nondisplaced fracture of the distal radius/dorsal side. There is no dislocation. There is soft tissue swelling. There are degenerative changes at the first carpometacarpal junction. IMPRESSION: Acute nondisplaced fracture of the distal radius.
--- NOTE | 2018-10-18 21:07 | RADIOLOGY REPORT (SQ) ---
EXAM DESCRIPTION: CT HEAD WITHOUT IV CONTRAST COMPLETED DATE/TME: 10/18/2018 19:54 CLINICAL HISTORY: fall COMPARISON: None Available. TECHNIQUE: Contiguous axial images of the brain were obtained without the administration of intravenous contrast.This exam was performed according to our departmental dose-optimization program, which includes automated exposure control, adjustment of the mA and/or kV according to patient size and/or use of iterative reconstruction technique. FINDINGS: There is no acute intracranial hemorrhage or mass effect. Areas of low attenuation in the periventricular and subcortical white matter are nonspecific but suggestive of small vessel disease. There is generalized atrophy. Ventricular system is within normal limits. There is adequate tesfaye-white matter differentiation. There is no skull fracture. There are chronic sinusitis changes within the sphenoid sinuses and right maxillary sinus. There is atherosclerosis. IMPRESSION: No acute intracranial abnormalities.
[2018-10-18] MEDS ORDERED: MORPHINE SULFATE 10 MG/ML INJ IV ONE (21:13)
--- NOTE | 2018-10-18 21:23 | RADIOLOGY REPORT (SQ) ---
EXAM DESCRIPTION: CT CERVICAL SPINE WITHOUT IV CONTRAST COMPLETED DATE/TME: 10/18/2018 19:54 CLINICAL HISTORY: fall COMPARISON: None Available TECHNIQUE: Contiguous axial images of the cervical spine were obtained without the administration of intravenous contrast followed by reconstruction images. This exam was performed according to our departmental dose-optimization program, which includes automated exposure control, adjustment of the mA and/or kV according to patient size and/or use of iterative reconstruction technique. FINDINGS: There is no acute fracture or subluxation. Prevertebral soft tissues are within normal limits. There is intervertebral disc space narrowing and osteophytic formation at C3-C4, C4-C5 and C5-C6. There is bilateral neural foramina narrowing at C3-C4, C4-C5, and C5-C6. Small scattered lucencies within the vertebral bodies. Focal mass within the right thyroid gland measuring approximately 2.8 cm. Correlation with a sonogram recommended. There is atherosclerosis. Patchy opacification of the right mastoid air cells could be secondary to fluid/mastoiditis. There is mucoperiosteal thickening of the sphenoid sinuses. IMPRESSION: No acute fracture or subluxation. Scattered small lucent defects within the vertebral bodies likely secondary to osteopenia however metastatic disease cannot be excluded. Correlation with a bone scan recommended if indicated. 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 Correlation with a sonogram could be helpful for further evaluation.
[2018-10-18] MEDS: MORPHINE SULFATE 10 MG/ML INJ IV PRN (23:01)
[2018-10-19 00:23] VITALS: BP 144/64
[2018-10-19] MEDS: MORPHINE SULFATE 10 MG/ML INJ IV PRN (02:35)
== END 2018-10-19 02:40 | disposition short-term general hospital (02) ==
LOC: ER 19:25
PROC: 2W3CX1Z Immobilization of Right Lower Arm using Splint (ICD-10-PCS; principal; 2018-10-18)
DX: S72.001A Fracture of unspecified part of neck of right femur, initial encounter for closed fracture (principal); S52.501A Unspecified fracture of the lower end of right radius, initial encounter for closed fracture; M25.551 Pain in right hip; M25.531 Pain in right wrist; W19.XXXA Unspecified fall, initial encounter; I50.9 Heart failure, unspecified; I25.10 Atherosclerotic heart disease of native coronary artery without angina pectoris; I11.0 Hypertensive heart disease with heart failure; J44.9 Chronic obstructive pulmonary disease, unspecified
CPT/HCPCS: 29125; 99285; 96374; 96375; 71045; 73502; 73110; 70450; 72125; J3010; J2270 ×2; J2405

== ENCOUNTER 2018-11-04 20:36 | Emergency (ER) | payer MEDICARE, OTHER ==
[2018-11-04] MEDS ORDERED: NORMAL SALINE 1000 ML 1,000 ML IV ONE (21:12)
[2018-11-04 21:48] LABS: ABSOLUTE EOSINOPHILS # (AUTO) 0.1 10^3/uL (0.0-0.6); ABSOLUTE MONOCYTES (AUTO) 0.7 10^3/uL (0.1-1.4); ABSOLUTE NEUT (AUTO) 5.2 10^3/uL (1.7-8.2); BASOPHILS % (AUTO) 0.5 % (0-2); EOSINOPHILS % (AUTO) 1.8 % (0-6); HEMATOCRIT 25.9 % (36.0-47.0); HEMOGLOBIN 8.5 g/dL (12.0-15.5); INTERNATIONAL RATION (INR) 1.18; LYMPHOCYTES % (AUTO) 13.4 % (13-45); MEAN CORPUSCULAR HEMOGLOBIN 29.1 pg (27.0-33.4); MEAN CORPUSCULAR HGB CONC 32.7 g/dL (32.0-36.0); MEAN CORPUSCULAR VOLUME 89 fl (80-97); MONOCYTES % (AUTO) 10.5 % (3-13); PLATELET COUNT 301 10^3/uL (150-450); PROTHROMBIN TIME 15.1 SEC (11.4-15.4); RED BLOOD COUNT 2.91 10^6/uL (3.72-5.28); RED CELL DISTRIBUTION WIDTH 14.7 % (11.5-14.0); SEGMENTED NEUTROPHILS % (AUTO) 73.8 % (42-78); TOTAL CELLS COUNTED % (AUTO) 100 %; WHITE BLOOD COUNT 7.1 10^3/uL (4.0-10.5)
--- NOTE | 2018-11-04 21:53 | ER Document Report ---
ED General - General Chief Complaint: Abdominal Pain Stated Complaint: RECTAL BLEEDING Time Seen by Provider: 11/04/18 21:01 Primary Care Provider: CHERISE REGALADO MD [Primary Care Provider] - Follow up as needed Mode of Arrival: Medic Information source: Patient TRAVEL OUTSIDE OF THE [place] IN LAST 30 DAYS: No - HPI Notes: Patient presents with rectal bleeding. She states that she is currently at [facility]. She states that she was told there was blood in her stool at the facility today. She states that she has not felt well today and has been feeling weak. She denies any pain. She has had some dizziness on standing. She states that approximately 2 to 3 weeks ago she suffered a fall and broke her right hip and right wrist. She did have to have 2 units of blood transfused while she was in the hospital for that procedure. She states she did not have any rectal bleeding that she knew of however. She states that she is no longer currently on a blood thinner that she knows of. Patient states that she does not have any previous history of bleeding from her rectum that she knows of. The symptoms of weakness have been constant and moderate to severe. They are worse with exertion and better with rest. There is no radiation of symptoms. - Related Data Allergies/Adverse Reactions: promethazine HCl [From Phenergan] Allergy (Verified 12/12/17 13:03) Past Medical History - General Information source: Patient, Relative - Social History Smoking Status: Never Smoker Frequency of alcohol use: None Drug Abuse: None Family History: Reviewed & Not Pertinent, Hypertension - Past Medical History Cardiac Medical History: Reports: Hx Congestive Heart Failure, Hx Coronary Artery Disease, Hx Hypercholesterolemia, Hx Hypertension Denies: Hx Heart Attack Pulmonary Medical History: Reports: Hx COPD Denies: Hx Asthma, Hx Bronchitis, Hx Pneumonia Neurological Medical History: Denies: Hx Cerebrovascular Accident, Hx Seizures Renal/ Medical History: Denies: Hx Peritoneal Dialysis Malignancy Medical History: Reports: Hx Breast Cancer, Hx Lung Cancer GI Medical History: Reports: Hx Hiatal Hernia, Hx Ulcer Musculoskeletal Medical History: Denies Hx Arthritis Psychiatric Medical History: Denies: Hx Depression Past Surgical History: Reports: Hx Abdominal Surgery, Hx Breast Surgery - Left mastectomy for breast cancer, Hx Cardiac Catheterization, Hx Cardiac Surgery, Hx Section, Hx Coronary Stent, Hx Gynecologic Surgery - , Hx Hysterectomy, Hx Mastectomy - Left - Immunizations Hx Diphtheria, Pertussis, Tetanus Vaccination: Yes Hx Pneumococcal Vaccination: 03/26/14 Review of Systems - Review of Systems Constitutional: Malaise, Weakness. denies: Chills Cardiovascular: denies: Chest pain, Palpitations Respiratory: denies: Cough, Short of breath Gastrointestinal: Rectal bleeding. denies: Abdominal pain, Vomiting -: Yes All other systems reviewed and negative Physical Exam - Vital signs Interpretation: Hypertensive - General General appearance: Alert In distress: None - HEENT Head: Normocephalic, Atraumatic Eyes: Normal Pupils: PERRL - Respiratory Respiratory status: No respiratory distress Chest status: Nontender Breath sounds: Normal Chest palpation: Normal - Cardiovascular Rhythm: Regular Heart sounds: Normal auscultation Murmur: No - Abdominal Inspection: Normal Distension: No distension Bowel sounds: Normal Tenderness: Nontender Organomegaly: No organomegaly - Rectal Stool: Bloody - Back Back: Normal, Nontender - Extremities General upper extremity: Tender - Patient has a splint on the right wrist and this area is tender to palpation., Normal color, Normal temperature General lower extremity: Normal inspection, Nontender, Normal color, Normal ROM, Normal temperature, Normal weight bearing. No: Luca's sign - Neurological Neuro grossly intact: Yes Cognition: Normal Orientation: AAOx4 [place] Coma Scale Eye Opening: Spontaneous [place] Coma Scale Verbal: Oriented [place] Coma Scale Motor: Obeys Commands Félix Coma Scale Total: 15 Speech: Normal Motor strength normal: LUE, RUE, LLE, RLE Sensory: Normal - Psychological Associated symptoms: Normal affect, Normal mood - Skin Skin Temperature: Warm Skin Moisture: Dry Skin Color: Pale Course - Laboratory Result Diagrams: 11/04/18 21:20 11/04/18 21:20 Laboratory results interpreted by me: 11/04/18 22:01 Laboratory 11/04/18 11/04/18 11/04/18 21:20 21:20 21:20 WBC 7.1 RBC 2.91 L Hgb 8.5 L Hct 25.9 L MCV 89 MCH 29.1 MCHC 32.7 RDW 14.7 H Plt Count 301 Seg Neutrophils % 73.8 Lymphocytes % 13.4 Monocytes % 10.5 Eosinophils % 1.8 Basophils % 0.5 Absolute Neutrophils 5.2 Absolute Lymphocytes 1.0 Absolute Monocytes 0.7 Absolute Eosinophils 0.1 Absolute Basophils 0.0 PT 15.1 INR 1.18 Sodium 138.5 Potassium 3.8 Chloride 102 Carbon Dioxide 30 Anion Gap 7 BUN 19 Creatinine 1.16 Est GFR ( Amer) 54 L Est GFR (Non-Af Amer) 45 L Glucose 108 Calcium 8.8 Total Bilirubin 0.1 L Direct Bilirubin 0.1 Neonat Total Bilirubin Not Reportable Neonat Direct Bilirubin Not Reportable Neonat Indirect Bili Not Reportable AST 24 ALT 17 Alkaline Phosphatase 131 H Total Protein 5.4 L Albumin 2.7 L - Transfer of Care Care transferred to following provider: shi Notes: 11/04/18 21:[address] Kwong at 10 PM. At this time patient is still stable with a normal blood pressure. Patient has IV access and normal saline is being administered. Hemoglobin comes back at 8.8. Patient's transfer has been initiated. Family has been updated. Discharge - Discharge Clinical Impression: Lower GI bleed Condition: Serious Disposition: Tertiary-Other Referrals: CHERISE REGALADO MD [Primary Care Provider] - Follow up as needed
[2018-11-04 21:58] LABS: ALBUMIN 2.7 g/dL (3.5-5.0); ALKALINE PHOSPHATASE 131 U/L (38-126); ANION GAP 7 (5-19); ASPARTATE AMINO TRANSFERASE 24 U/L (14-36); BILIRUBIN,DIRECT 0.1 mg/dL (0.0-0.4); BILIRUBIN,TOTAL 0.1 mg/dL (0.2-1.3); BLOOD UREA NITROGEN 19 mg/dL (7-20); CALCIUM 8.8 mg/dL (8.4-10.2); CARBON DIOXIDE 30 mmol/L (22-30); CHLORIDE 102 mmol/L (98-107); GLUCOSE 108 mg/dL (75-110); POTASSIUM 3.8 mmol/L (3.6-5.0); TOTAL PROTEIN 5.4 g/dL (6.3-8.2)
[2018-11-04] MEDS ORDERED: TRANEXAMIC ACID INJ/PF 1,000 MG/10 ML SDV IV ONE (22:15)
[2018-11-04 22:42] LABS: APPEARANCE,URINE CLEAR; BILIRUBIN,URINE NEGATIVE (NEGATIVE); COLOR,URINE YELLOW; GLUCOSE, URINE NEGATIVE (NEGATIVE); KETONES,URINE NEGATIVE (NEGATIVE); LEUKOCYTE ESTERASE,URINE TRACE (NEGATIVE); NITRITE,URINE NEGATIVE (NEGATIVE); PROTEIN,URINE NEGATIVE (NEGATIVE); URINE SPECIFIC GRAVITY 1.012; UROBILINOGEN,URINE NEGATIVE mg/dL (<2.0)
[2018-11-04 23:38] VITALS: BP 166/81
--- NOTE | 2018-11-05 09:40 | EKG REPORT ---
SEVERITY:- ABNORMAL ECG - SINUS RHYTHM RIGHT BUNDLE BRANCH BLOCK PROBABLE LATERAL INFARCT, OLD : Confirmed by: Venita Malloy 05-Nov-2018 09:39:29
== END 2018-11-05 00:04 | disposition short-term general hospital (02) ==
LOC: ER 20:36
DX: K92.2 Gastrointestinal hemorrhage, unspecified (principal); R10.9 Unspecified abdominal pain; I50.9 Heart failure, unspecified; I25.10 Atherosclerotic heart disease of native coronary artery without angina pectoris; I11.0 Hypertensive heart disease with heart failure; J44.9 Chronic obstructive pulmonary disease, unspecified
CPT/HCPCS: 99285; 96374; 86900; 86901; 36415; 86870; 86850; 83735; 85025; 85610; 80053; 81001; 84484; 93005; 93010; J3490

== ENCOUNTER 2018-11-23 14:17 | Inpatient (IN) | payer MEDICARE, OTHER ==
--- NOTE | 2018-11-23 14:38 | ER Document Report ---
ED Medical Screen (RME) - General Chief Complaint: Rectal Bleeding Stated Complaint: BLOODY STOOL Time Seen by Provider: 11/23/18 14:35 Primary Care Provider: CHERISE REGALADO MD [Primary Care Provider] - Follow up as needed Information source: Relative Notes: Patient presents from the skilled nursing with a report of rectal bleeding. Patient had a difficult to pass bowel movement yesterday and had some bleeding after this. Patient does have a history of recent GI bleed that required transfusion of 6 units. Patient also has had a low-grade fever today of 100.6 at the skilled nursing. Family members reports that patient has been out of it and confused. Patient has a history of anemia hypertension GERD and lung cancer. I have greeted and performed a rapid initial assessment of this patient. A comprehensive ED assessment and evaluation of the patient, analysis of test results and completion of the medical decision making process will be conducted by additional ED providers. TRAVEL OUTSIDE OF THE [place] IN LAST 30 DAYS: No - Related Data Allergies/Adverse Reactions: promethazine HCl [From Phenergan] Allergy (Verified 12/12/17 13:03) Past Medical History - Past Medical History Cardiac Medical History: Reports: Hx Congestive Heart Failure, Hx Coronary Artery Disease, Hx Hypercholesterolemia, Hx Hypertension Denies: Hx Heart Attack Pulmonary Medical History: Reports: Hx COPD Denies: Hx Asthma, Hx Bronchitis, Hx Pneumonia Neurological Medical History: Denies: Hx Cerebrovascular Accident, Hx Seizures Renal/ Medical History: Denies: Hx Peritoneal Dialysis Malignancy Medical History: Reports: Hx Breast Cancer, Hx Lung Cancer GI Medical History: Reports: Hx Hiatal Hernia, Hx Ulcer Musculoskeltal Medical History: Denies Hx Arthritis Psychiatric Medical History: Denies: Hx Depression Past Surgical History: Reports: Hx Abdominal Surgery, Hx Breast Surgery - Left mastectomy for breast cancer, Hx Cardiac Catheterization, Hx Cardiac Surgery, Hx Section, Hx Coronary Stent, Hx Gynecologic Surgery - , Hx Hysterectomy, Hx Mastectomy - Left - Immunizations Hx Diphtheria, Pertussis, Tetanus Vaccination: Yes History of Influenza Vaccine for 12/2016 - 05/2017 Season: Unknown Physical Exam - General General appearance: Alert Notes: Pale, occasionally confused Doctor's Discharge - Discharge Referrals: CHERISE REGALADO MD [Primary Care Provider] - Follow up as needed
[2018-11-23 15:24] LABS: ABSOLUTE LYMPHOCYTES (AUTO) 1.2 10^3/uL (0.5-4.7); ABSOLUTE MONOCYTES (AUTO) 0.7 10^3/uL (0.1-1.4); ABSOLUTE NEUT (AUTO) 7.4 10^3/uL (1.7-8.2); BASOPHILS % (AUTO) 0.3 % (0-2); EOSINOPHILS % (AUTO) 0.2 % (0-6); LYMPHOCYTES % (AUTO) 12.4 % (13-45); MEAN CORPUSCULAR HEMOGLOBIN 28.1 pg (27.0-33.4); MEAN CORPUSCULAR HGB CONC 33.1 g/dL (32.0-36.0); MONOCYTES % (AUTO) 7.7 % (3-13); PLATELET COUNT 246 10^3/uL (150-450); RED BLOOD COUNT 2.83 10^6/uL (3.72-5.28); RED CELL DISTRIBUTION WIDTH 14.7 % (11.5-14.0); SEGMENTED NEUTROPHILS % (AUTO) 79.4 % (42-78); TOTAL CELLS COUNTED % (AUTO) 100 %; WHITE BLOOD COUNT 9.4 10^3/uL (4.0-10.5)
[2018-11-23 15:26] LABS: VENOUS BLOOD BASE EXCESS 4.2 mmol/L; VENOUS BLOOD HCO3 28.1 mmol/L (20-32); VENOUS BLOOD PCO2 37.5 mmHg (35-63); VENOUS BLOOD PH 7.49 (7.30-7.42)
[2018-11-23 15:30] LABS: MEAN CORPUSCULAR VOLUME 85 fl (80-97)
[2018-11-23 15:32] LABS: INTERNATIONAL RATION (INR) 1.31; PROTHROMBIN TIME 16.4 SEC (11.4-15.4)
[2018-11-23 15:33] LABS: PARTIAL THROMBOPLASTIN TIME 44.4 SEC (23.5-35.8)
[2018-11-23 15:40] LABS: ALBUMIN 2.3 g/dL (3.5-5.0); ALKALINE PHOSPHATASE 120 U/L (38-126); ANION GAP 6 (5-19); ASPARTATE AMINO TRANSFERASE 19 U/L (14-36); BILIRUBIN,DIRECT 0.1 mg/dL (0.0-0.4); BILIRUBIN,TOTAL 0.1 mg/dL (0.2-1.3); BLOOD UREA NITROGEN 20 mg/dL (7-20); CALCIUM 8.4 mg/dL (8.4-10.2); CARBON DIOXIDE 27 mmol/L (22-30); CHLORIDE 102 mmol/L (98-107); GLUCOSE 144 mg/dL (75-110); POTASSIUM 4.3 mmol/L (3.6-5.0)
--- NOTE | 2018-11-23 16:12 | RADIOLOGY REPORT (SQ) ---
EXAM DESCRIPTION: CHEST SINGLE VIEW COMPLETED DATE/TIME: 11/23/2018 4:01 pm REASON FOR STUDY: fever/AMS COMPARISON: 10/18/2018, 12/12/2017, and 08/19/2014. EXAM PARAMETERS: NUMBER OF VIEWS: One view. TECHNIQUE: Single frontal radiographic view of the chest acquired. RADIATION DOSE: NA LIMITATIONS: None. FINDINGS: LUNGS AND PLEURA: Chronic interstitial changes. No focal infiltrates, masses or pneumotho rax. No pleural effusion. MEDIASTINUM AND HILAR STRUCTURES: Stable chronic right hilar fullness due to prominent pulmonary vess els. HEART AND VASCULAR STRUCTURES: Heart normal in size. Normal vasculature. BONES: No acute findings. HARDWARE: None in the chest. OTHER: No other significant finding. IMPRESSION: STABLE CHRONIC CHANGES. NO APPARENT ACUTE RADIOGRAPHIC FINDING IN THE CHEST. TECHNICAL DOCUMENTATION: JOB ID: [id number] [employer]- All Rights Reserved Reading location - IP/workstation name: [email or web address]
[2018-11-23] MEDS ORDERED: PANTOPRAZOLE SODIUM 40 MG VIAL IV PRN (16:32)
[2018-11-23] MEDS ORDERED: PANTOPRAZOLE SODIUM 40 MG VIAL IV ONE (16:33)
--- NOTE | 2018-11-23 16:34 | ER Document Report ---
ED General - General Chief Complaint: Rectal Bleeding Stated Complaint: BLOODY STOOL Time Seen by Provider: 11/23/18 14:35 Information source: Relative Notes: Patient is an 83-year-old female who presents to the emergency department with chief complaint of rectal bleeding. The patient is a resident in [place] and has been there for the past week because she had hip surgery and left wrist surgery at [facility]. She was brought back to [facility] in the middle of September for rectal bleeding. She was then flown out to [facility] for repair. This past week she has been at [facility]. Patient had some rectal bleeding today when she was cleaned up. She did not have a bowel movement for quite a while and when she did there was some blood in her stool. Patient has a past medical history of anemia, hypertension, CHF, GERD, and lung cancer. History provided by the patient's daughter, who is at bedside. TRAVEL OUTSIDE OF THE [place] IN LAST 30 DAYS: No - Related Data Allergies/Adverse Reactions: promethazine HCl [From Phenergan] Allergy (Verified 12/12/17 13:03) Past Medical History - General Information source: Relative - Social History Smoking Status: Never Smoker Chew tobacco use (# tins/day): No Frequency of alcohol use: None Drug Abuse: None Family History: Reviewed & Not Pertinent, Hypertension Patient has suicidal ideation: No Patient has homicidal ideation: No - Past Medical History Cardiac Medical History: Reports: Hx Congestive Heart Failure, Hx Coronary Artery Disease, Hx Hypercholesterolemia, Hx Hypertension Denies: Hx Heart Attack Pulmonary Medical History: Reports: Hx COPD Denies: Hx Asthma, Hx Bronchitis, Hx Pneumonia Neurological Medical History: Denies: Hx Cerebrovascular Accident, Hx Seizures Renal/ Medical History: Denies: Hx Peritoneal Dialysis Malignancy Medical History: Reports: Hx Breast Cancer, Hx Lung Cancer GI Medical History: Reports: Hx Hiatal Hernia, Hx Ulcer Musculoskeletal Medical History: Denies Hx Arthritis Psychiatric Medical History: Denies: Hx Depression Past Surgical History: Reports: Hx Abdominal Surgery, Hx Breast Surgery - Left mastectomy for breast cancer, Hx Cardiac Catheterization, Hx Cardiac Surgery, Hx Section, Hx Coronary Stent, Hx Gynecologic Surgery - , Hx Hysterectomy, Hx Mastectomy - Left - Immunizations Hx Diphtheria, Pertussis, Tetanus Vaccination: Yes Hx Pneumococcal Vaccination: 03/26/14 Review of Systems - Review of Systems -: Yes ROS unobtainable due to patient's medical condition Constitutional: See HPI Physical Exam - Vital signs Vitals: Temp Pulse Resp BP Pulse Ox 99.5 F 87 15 128/58 H 95 11/23/18 14:23 11/23/18 14:23 11/23/18 14:23 11/23/18 14:23 11/23/18 14:23 - Notes Notes: PHYSICAL EXAMINATION: GENERAL: Appears stated age, pale, no acute distress. HEAD: Normocephalic, atraumatic. EYES: PERRL, conjunctiva normal, all extraocular movements intact, sclera nonicteric ENT: Dry mucous membranes. NECK: Supple, no noticeable swelling, redness, rash. Normal range of motion. LUNGS: Equal breath sounds bilaterally and clear to auscultation. No wheezes rales or rhonchi. Cough noted CARDIOVASCULAR: S1-S2, regular rate, regular rhythm. Radial pulses 2+, normal. ABDOMEN: Normoactive bowel sounds. Soft, nontender, no guarding, no rebound tenderness, and no masses palpated. EXTREMITIES: Normal strength and range of motion, no pitting or edema. No cyanosis. NEUROLOGICAL: Moves all extremities upon command. Strength 4/5 in all extremities. Confused. PSYCH: Normal mood, normal affect. SKIN: Warm, dry. Erythema noted to bilateral groin. Course - Re-evaluation Re-evalutation: 11/23/18 16:30 Patient's hematology shows anemia with a hemoglobin of 8.0 and hematocrit of 24. Chemistries are unremarkable. Bedside occult stool is positive for blood. Patient has maroonish colored stool. Awaiting urinalysis. A straight cath order will be placed. Patient will be placed on Protonix bolus and drip. 11/23/18 18:08 Patient's urinalysis shows large amount of leukocytes in her urine. She has a urinary tract infection. This could be the reason why she has been altered. She will receive a gram of Rocephin. I paged Dr. Rangel to speak to him about possible endoscopy. Will await callback. 11/23/18 18:20 The patient's family states that Dr. Castellon is the patient's primary care provider, so I attempted to call Dr. Castellon for admission. Dr. Castellon says that the patient's primary care provider is Dr. Rascon. 11/23/18 18:45 I was able to get a hold of Dr. Rangel. He is willing to follow the patient with internal medicine as primary care. Will call the hospitalist for admission. 11/23/18 19:[address] Almaguer, the hospitalist. He is recommending finding out what procedure was done and to find out whether or not the patient had an upper or lower GI bleed. 11/23/18 20:[address] Silva, the GI doctor at [facility] he states that on 06 October the patient had a flex sig ulceration that was about 10 cm. They ended up controlling the bleeding with 4 mL's of epinephrine and placed clips. The recommendations are if the patient continues to bleed, she would be referred to colorectal surgery. I spoke with the patient and her daughter. The patient appears much better now that she she has been on Protonix. Her color is starting to come back. I asked the patient and the daughter if surgery would be an appropriate choice for them. At this time she would not like surgery done. 11/23/18 20:[address] Almaguer and he wanted me to call Dr. Rangel and see if he was willing to do surgery on the patient. I called Dr. Rangel and he was willing to follow the patient and since she is hemodynamically stable, he will follow the patient. I then called Dr. Almaguer back and told him that Dr. Rangel is willing to follow the patient. The patient will be admitted to telemetry service. 11/23/18 20:59 I spoke with the patient and the daughter. The patient's primary care provider is Dr. Rascon. I updated patient access so it can be properly documented in her chart. - Vital Signs Vital signs: Temp Pulse Resp BP Pulse Ox 99.6 F 87 25 H 156/66 H 98 11/23/18 20:48 11/23/18 14:23 11/23/18 20:48 11/23/18 20:48 11/23/18 20:48 - Laboratory Result Diagrams: 11/23/18 14:25 11/23/18 14:25 Laboratory results interpreted by me: 11/23/18 11/23/18 11/23/18 14:25 14:25 14:25 RBC 2.83 L Hgb 8.0 L Hct 24.0 L RDW 14.7 H Lymph % (Auto) 12.4 L Seg Neutrophils % 79.4 H PT 16.4 H APTT 44.4 H VBG pH Sodium 135.1 L Est GFR (MDRD) Non-Af 57 L Glucose 144 H Total Bilirubin 0.1 L Total Protein 5.0 L Albumin 2.3 L Urine Protein Urine Blood Ur Leukocyte Esterase 11/23/18 11/23/18 14:25 16:50 RBC Hgb Hct RDW Lymph % (Auto) Seg Neutrophils % PT APTT VBG pH 7.49 H Sodium Est GFR (MDRD) Non-Af Glucose Total Bilirubin Total Protein Albumin Urine Protein 30 H Urine Blood MODERATE H Ur Leukocyte Esterase LARGE H Discharge - Discharge Clinical Impression: GI bleed Qualifiers: GI bleed type/associated pathology: unspecified gastrointestinal hemorrhage type Qualified Code(s): K92.2 - Gastrointestinal hemorrhage, unspecified Altered mental status Qualifiers: Altered mental status type: unspecified Qualified Code(s): R41.82 - Altered mental status, unspecified Condition: Stable Disposition: ADMITTED INPATIENT Admitting Provider: Tripp (Hospitalist) Unit Admitted: Telemetry
[2018-11-23 17:15] LABS: APPEARANCE,URINE TURBID; BILIRUBIN,URINE NEGATIVE (NEGATIVE); COLOR,URINE AMBER; GLUCOSE, URINE NEGATIVE (NEGATIVE); KETONES,URINE NEGATIVE (NEGATIVE); LEUKOCYTE ESTERASE,URINE LARGE (NEGATIVE); NITRITE,URINE NEGATIVE (NEGATIVE); PROTEIN,URINE 30 mg/dL (NEGATIVE); URINE SPECIFIC GRAVITY 1.018; UROBILINOGEN,URINE NEGATIVE mg/dL (<2.0)
[2018-11-23] MEDS ORDERED: CEFTRIAXONE 1 GM/D5W RTU 1 GM/50 ML RTUPB IV ONE (18:06)
[2018-11-23] MEDS ORDERED: NYSTATIN/TRIAMCIN CREAM 15 GM TP ONE (19:02)
[2018-11-23] MEDS ORDERED: MAG HYDROX/AL HYDROX/SIMETH SUSP 30 ML UDCUP PO PRN (20:49)
[2018-11-23] MEDS ORDERED: ACETAMINOPHEN 325 MG TABLET PO PRN (20:49)
[2018-11-23] MEDS ORDERED: IPRATROPIUM/ALBUTEROL 0.5-2.5 MG/3 ML AMPUL NEB PRN (20:49)
--- NOTE | 2018-11-23 21:04 | EKG REPORT ---
SEVERITY:- ABNORMAL ECG - SINUS RHYTHM RIGHT BUNDLE BRANCH BLOCK LEFT VENTRICULAR HYPERTROPHY : Confirmed by: Scotty Augustin MD 23-Nov-2018 21:03:35
--- NOTE | 2018-11-23 21:33 | PDOC CONSULTATION ---
Consultation Consult Date: 11/23/18 Attending physician:: OUSMANE SULLIVAN Provider Consulted: KYE RANGEL Consult reason:: Gastrointestinal bleed History of Present Illness Admission Date/PCP: 11/23/18 21:03 CHERISE REGALADO MD Patient complains of: Weakness failure to thrive History of Present Illness: BERNABE DORMAN is a 83 year old female Comes to the emergency department via ground rescue complaining of weakness, difficulty having a bowel movement, and bloody stool yesterday. Patient continued to perform poorly at the prison, [place], and is now evaluated emergency department. She is hemodynamically stable neurologically intact and accompanied by her daughter. Hemoglobin of 8. According to daughter, patient was in her usual state of fair health until several months ago he fell and broke her right hip and right wrist. She was transferred from [facility] to [facility] where she underwent hemiarthroplasty of the right hip, and splinting of the right wrist. She was transferred to [facility], then 3 weeks ago developed GI bleed and was seen and [facility] then transferred to [facility] where she underwent a transfusion of 6 units of blood, and underwent colonoscopy, with clipping of the sigmoid colon ulcers, again according to patient's daughter. Patient was transferred back to [facility] 2 weeks ago where she has been getting up with assistance. Of note the patient is a DO NOT RESUSCITATE. Also of note Dr. Rangel has operated on patient's daughter on several occasions. Patient's daughter is healthcare power of civil attorney, and primary care provider for her mother. Past Medical History Cardiac Medical History: Reports: Congestive Heart Failure, Coronary Artery Disease, Hyperlipidema, Hypertension Denies: Myocardial Infarction Pulmonary Medical History: Reports: Chronic Obstructive Pulmonary Disease (COPD) Denies: Asthma, Bronchitis, Pneumonia Neurological Medical History: Denies: Seizures Malignancy Medical History: Reports: Breast Cancer, Lung Cancer GI Medical History: Reports: Hiatal Hernia Musculoskeltal Medical History: Denies: Arthritis Psychiatric Medical History: Denies: Depression Hematology: Reports: Anemia Past Surgical History Past Surgical History: Reports: Cardiac Catheterization, Section, Coronary Stent, Hysterectomy, Mastectomy - Left Social History Information Source: Patient Smoking Status: Never Smoker Frequency of Alcohol Use: None Hx Recreational Drug Use: No Drugs: None Hx Prescription Drug Abuse: No Family History Family History: None, Reviewed & Not Pertinent, Hypertension Parental Family History Reviewed: Yes Children Family History Reviewed: Yes Sibling(s) Family History Reviewed.: Yes Medication/Allergy Home Medications: Alprazolam [Xanax 0.25 mg Tablet] 0.25 mg PO BID@1200,2200 06/14/18 Carvedilol [Coreg 25 mg Tablet] 25 mg PO Q12 06/14/18 Chlorthalidone [Hygroton 25 mg Tablet] 25 mg PO DAILY 06/14/18 Donepezil HCl [Aricept 5 mg Tablet] 5 mg PO QHS 06/14/18 Primidone [Mysoline 50 mg Tablet] 50 mg PO TID 06/14/18 Ranitidine HCl [Zantac] 300 mg PO QHS 06/14/18 Rosuvastatin Calcium [Crestor 10 mg Tablet] 10 mg PO QHS 06/14/18 Sertraline HCl [Zoloft 50 mg Tablet] 50 mg PO QHS 06/14/18 Amlodipine Besylate/Benazepril [Lotrel 10-40 mg Capsule] 1 cap PO NOON 10/18/18 Carbamazepine [Carbamazepine ER] 200 mg PO Q12 10/18/18 Hydralazine HCl [Apresoline 25 mg Tablet] 25 mg PO Q6HP PRN 10/18/18 Sucralfate [Carafate 1 gm Tablet] 1 gm PO MEALSHS 10/18/18 Allergies/Adverse Reactions: promethazine HCl [From Phenergan] Allergy (Verified 12/12/17 13:03) Review of Systems Constitutional: PRESENT: as per HPI Physical Exam Vital Signs: Temp Pulse Resp BP Pulse Ox 99.6 F 87 25 H 156/66 H 98 11/23/18 20:48 11/23/18 14:23 11/23/18 20:48 11/23/18 20:48 11/23/18 20:48 Intake & Output 11/22/18 11/23/18 11/24/18 06:59 06:59 06:59 Intake Total 50 Balance 50 Weight 61.689 kg General appearance: PRESENT: no acute distress Head exam: PRESENT: normocephalic Eye exam: PRESENT: EOMI Mouth exam: PRESENT: dry mucosa Respiratory exam: PRESENT: clear to auscultation ulysses Pulses: PRESENT: normal carotid pulses, normal radial pulses, normal femoral pulses, normal dorsalis pedis pul, +1 pedal pulses bilateral GI/Abdominal exam: PRESENT: soft Rectal exam: PRESENT: deferred Musculoskeletal exam: PRESENT: other - Decreased range of motion of extremities Neurological exam: PRESENT: oriented to person, oriented to place, oriented to time, oriented to situation Psychiatric exam: PRESENT: appropriate affect Results Laboratory Results: 11/23/18 14:25 11/23/18 14:25 11/23/18 11/23/18 11/23/18 14:25 14:25 14:25 WBC 9.4 RBC 2.83 L Hgb 8.0 L Hct 24.0 L MCV 85 D MCH 28.1 MCHC 33.1 RDW 14.7 H Plt Count 246 Seg Neutrophils % 79.4 H VBG pH VBG pCO2 VBG HCO3 VBG Base Excess Sodium 135.1 L Potassium 4.3 Chloride 102 Carbon Dioxide 27 Anion Gap 6 BUN 20 Creatinine 0.94 Est GFR ( Amer) > 60 Glucose 144 H Lactic Acid 1.7 Calcium 8.4 Total Bilirubin 0.1 L AST 19 Alkaline Phosphatase 120 Total Protein 5.0 L Albumin 2.3 L Urine Color Urine Appearance Urine pH Ur Specific [place] Urine Protein Urine Glucose (UA) Urine Ketones Urine Blood Urine Nitrite Ur Leukocyte Esterase Urine WBC (Auto) Urine RBC (Auto) Blood Type Antibody Screen 11/23/18 11/23/18 11/23/18 14:25 14:25 16:50 WBC RBC Hgb Hct MCV MCH MCHC RDW Plt Count Seg Neutrophils % VBG pH 7.49 H VBG pCO2 37.5 VBG HCO3 28.1 VBG Base Excess 4.2 Sodium Potassium Chloride Carbon Dioxide Anion Gap BUN Creatinine Est GFR ( Amer) Glucose Lactic Acid Calcium Total Bilirubin AST Alkaline Phosphatase Total Protein Albumin Urine Color JARED Urine Appearance TURBID Urine pH 5.0 Ur Specific Johnson 1.018 Urine Protein 30 H Urine Glucose (UA) NEGATIVE Urine Ketones NEGATIVE Urine Blood MODERATE H Urine Nitrite NEGATIVE Ur Leukocyte Esterase LARGE H Urine WBC (Auto) >182 Urine RBC (Auto) 101 Blood Type O NEGATIVE Antibody Screen POSITIVE Impressions: Chest X-Ray 11/23/18 15:41 IMPRESSION: STABLE CHRONIC CHANGES. NO APPARENT ACUTE RADIOGRAPHIC FINDING IN THE CHEST. Assessment & Plan - Diagnosis (1) GI bleed Qualifiers: GI bleed type/associated pathology: unspecified gastrointestinal hemorrhage type Qualified Code(s): K92.2 - Gastrointestinal hemorrhage, unspecified Is this a current diagnosis for this admission?: Yes Plan: Impression: Second GI bleed in 3 weeks, likely lower source, likely exacerbation of previous GI bleed 3 weeks ago secondary to sigmoid colon ulcer which was clipped endoscopically at [facility]; currently patient hemoglobin 8 down slightly from 8-1/2 several weeks ago. Patient did receive 6 units of packed cells 3 w eeks ago. She is a DNR and this is understood by the patient and her daughter who is well-known to me. Recommendations: 1. Agree with admission for observation to the hospitalist service with [facility] 2. Will be available for support if patient and family desire intervention such as repeat endoscopy, diagnostic and possible therapeutic intervention. (2) Do not resuscitate Is this a current diagnosis for this admission?: Yes (3) Sigmoid colon ulcer Is this a current diagnosis for this admission?: Yes (4) Essential hypertension Is this a current diagnosis for this admission?: Yes (5) Fall in home Qualifiers: Encounter type: initial encounter Qualified Code(s): W19.XXXA - Unspecified fall, initial encounter; Y92.009 - Unspecified place in unspecified non- institutional (private) residence as the place of occurrence of the external cause Is this a current diagnosis for this admission?: Yes (6) Heart murmur, aortic Is this a current diagnosis for this admission?: Yes (7) Constipation Is this a current diagnosis for this admission?: Yes - Time Time Spent: 30 to 50 Minutes Smoking Cessation Education: 3 to 10 minutes Medications reviewed and adjusted accordingly: Yes Anticipated discharge: SNF - Inpatient Certification Based on my medical assessment, after consideration of the patient's comorbidities, presenting symptoms, or acuity I expect that the services needed warrant INPATIENT care.: Yes I certify that my determination is in accordance with my understanding of Medicare's requirements for reasonable and necessary INPATIENT services [42 CFR 412.3e].: Yes Medical Necessity: Need For IV Fluids, Need For Continuous Telemetry Monitoring
[2018-11-23 22:04] LABS: HEMATOCRIT 21.9 % (36.0-47.0); MEAN CORPUSCULAR HEMOGLOBIN 28.4 pg (27.0-33.4); MEAN CORPUSCULAR HGB CONC 33.5 g/dL (32.0-36.0); MEAN CORPUSCULAR VOLUME 85 fl (80-97); PLATELET COUNT 221 10^3/uL (150-450); RED BLOOD COUNT 2.59 10^6/uL (3.72-5.28); RED CELL DISTRIBUTION WIDTH 14.7 % (11.5-14.0); WHITE BLOOD COUNT 9.1 10^3/uL (4.0-10.5)
[2018-11-23 22:08] LABS: HEMOGLOBIN 7.3 g/dL (12.0-15.5)
[2018-11-23] MEDS: CIPROFLOXACIN 400 MG/D5W RTU 400 MG/200 ML RTUPB IV SCH (23:05)
[2018-11-23] MEDS: METRONIDAZOLE 500 MG/NS RTU 500 MG/100 ML RTUPB IV SCH (23:19)
[2018-11-24] MEDS ORDERED: DOCUSATE SODIUM 100 MG CAPSULE PO PRN (00:50)
[2018-11-24] MEDS: SERTRALINE HCL 50 MG TABLET PO SCH ×2 (01:20→21:40)
[2018-11-24] MEDS: METRONIDAZOLE 500 MG/NS RTU 500 MG/100 ML RTUPB IV SCH ×5 (01:20→23:06)
[2018-11-24 03:26] LABS: HEMATOCRIT 22.5 % (36.0-47.0); MEAN CORPUSCULAR HEMOGLOBIN 27.8 pg (27.0-33.4); MEAN CORPUSCULAR HGB CONC 33.2 g/dL (32.0-36.0); MEAN CORPUSCULAR VOLUME 84 fl (80-97); PLATELET COUNT 221 10^3/uL (150-450); RED BLOOD COUNT 2.69 10^6/uL (3.72-5.28); RED CELL DISTRIBUTION WIDTH 14.7 % (11.5-14.0); WHITE BLOOD COUNT 7.8 10^3/uL (4.0-10.5)
[2018-11-24 03:29] LABS: HEMOGLOBIN 7.5 g/dL (12.0-15.5)
--- NOTE | 2018-11-24 05:50 | PDOC H&P ---
History of Present Illness Admission Date/PCP: 11/23/18 21:03 CHERISE REGALADO MD Patient complains of: Bright red blood per rectum History of Present Illness: BERNABE DORMAN is a 83 year old female with a past medical history of CHF, GERD, hypertension, anemia and lower GI bleed 1 month ago. She was treated at [facility] found to have a 10 cm colonic ulcer treated by epinephrine and clipping. She presents with 24 hours of bright red blood per r ectum which was preceded by severe fecal impaction which was abruptly alleviated. In the emergency room she is found to have a hemoglobin of 8 without evidence of ongoing bleeding. She is also found to have a urinary tract infection and referred to the hospitalist for admission. Patient denies recent change in medication with exception to iron. She denies abdominal pain nausea vomiting or fever. Past Medical History Cardiac Medical History: Reports: Congestive Heart Failure, Coronary Artery Disease, Hyperlipidema, Hypertension Denies: Myocardial Infarction Pulmonary Medical History: Reports: Chronic Obstructive Pulmonary Disease (COPD) Denies: Asthma, Bronchitis, Pneumonia Neurological Medical History: Denies: Seizures Malignancy Medical History: Reports: Breast Cancer, Lung Cancer GI Medical History: Reports: Hiatal Hernia Musculoskeltal Medical History: Denies: Arthritis Psychiatric Medical History: Denies: Depression Hematology: Reports: Anemia Past Surgical History Past Surgical History: Reports: Cardiac Catheterization, Section, Coronary Stent, Hysterectomy, Mastectomy - Left Social History Information Source: Patient, [facility], [facility] Records Lives with: Shelter Smoking Status: Never Smoker Frequency of Alcohol Use: None Hx Recreational Drug Use: No Drugs: None Hx Prescription Drug Abuse: No - Advance Directive Resuscitation Status: Full Code Family History Family History: Reviewed & Not Pertinent, Hypertension Parental Family History Reviewed: Yes Children Family History Reviewed: Yes Sibling(s) Family History Reviewed.: Yes Medication/Allergy Home Medications: Alprazolam [Xanax 0.25 mg Tablet] 0.25 mg PO BID@1200,2200 PRN 06/14/18 Carvedilol [Coreg 25 mg Tablet] 25 mg PO BID 06/14/18 Donepezil HCl [Aricept 5 mg Tablet] 5 mg PO QHS 06/14/18 Primidone [Mysoline 50 mg Tablet] 50 mg PO TID 06/14/18 Ranitidine HCl [Zantac] 300 mg PO QHS 06/14/18 Rosuvastatin Calcium [Crestor 10 mg Tablet] 10 mg PO QHS 06/14/18 Sertraline HCl [Zoloft 50 mg Tablet] 50 mg PO QHS 06/14/18 Carbamazepine [Carbamazepine ER] 200 mg PO BID 10/18/18 Sucralfate [Carafate 1 gm Tablet] 1 gm PO MEALSHS 10/18/18 Amlodipine Besylate [Norvasc 10 mg Tablet] 10 mg PO DAILY 11/23/18 Docusate Sodium [Colace] 100 mg PO BID PRN 11/23/18 Ferrous Sulfate [Feosol] 325 mg PO BID 11/23/18 Lisinopril 10 mg PO DAILY 11/23/18 Oxycodone HCl 5 mg PO Q8H PRN 11/23/18 Allergies/Adverse Reactions: promethazine HCl [From Phenergan] Allergy (Verified 12/12/17 13:03) Review of Systems Constitutional: ABSENT: chills, fever(s), headache(s), weight gain, weight loss Eyes: ABSENT: visual disturbances Ears: ABSENT: hearing changes Cardiovascular: ABSENT: chest pain, dyspnea on exertion, edema, orthropnea, palpitations Respiratory: ABSENT: cough, hemoptysis Gastrointestinal: ABSENT: abdominal pain, constipation, diarrhea, hematemesis, hematochezia, nausea, vomiting Genitourinary: ABSENT: dysuria, hematuria Musculoskeletal: ABSENT: joint swelling Integumentary: ABSENT: rash, wounds Neurological: ABSENT: abnormal gait, abnormal speech, confusion, dizziness, focal weakness, syncope Psychiatric: ABSENT: anxiety, depression, homidical ideation, suicidal ideation Endocrine: ABSENT: cold intolerance, heat intolerance, polydipsia, polyuria Hematologic/Lymphatic: ABSENT: easy bleeding, easy bruising Physical Exam Vital Signs: Temp Pulse Resp BP Pulse Ox 98.4 F 88 18 156/65 H 98 11/23/18 22:40 11/24/18 02:00 11/23/18 22:40 11/23/18 22:40 11/23/18 22:40 Intake & Output 11/22/18 11/23/18 11/24/18 11:59 11:59 11:59 Intake Total 450 Balance 450 Weight 71.8 kg General appearance: PRESENT: cooperative, mild distress, well-developed, well- nourished Head exam: PRESENT: atraumatic, normocephalic Eye exam: PRESENT: conjunctiva pale, EOMI, PERRLA. ABSENT: scleral icterus Ear exam: PRESENT: normal external ear exam Mouth exam: PRESENT: moist, tongue midline Neck exam: ABSENT: carotid bruit, JVD, lymphadenopathy, thyromegaly Respiratory exam: PRESENT: clear to auscultation ulysses. ABSENT: rales, rhonchi, wheezes Cardiovascular exam: PRESENT: RRR. ABSENT: diastolic murmur, rubs, systolic murmur Pulses: PRESENT: normal dorsalis pedis pul Vascular exam: PRESENT: normal capillary refill GI/Abdominal exam: PRESENT: normal bowel sounds, soft. ABSENT: distended, guarding, mass, organolmegaly, rebound, tenderness Rectal exam: PRESENT: deferred Extremities exam: PRESENT: full ROM. ABSENT: calf tenderness, clubbing, pedal edema Neurological exam: PRESENT: alert, awake, oriented to person, oriented to place, oriented to time, oriented to situation, CN II-XII grossly intact. ABSENT: motor sensory deficit Psychiatric exam: PRESENT: appropriate affect, normal mood. ABSENT: homicidal ideation, suicidal ideation Skin exam: PRESENT: dry, intact, warm. ABSENT: cyanosis, rash Results Laboratory Results: 11/24/18 03:14 11/23/18 14:25 11/23/18 11/23/18 11/23/18 14:25 14:25 14:25 WBC 9.4 RBC 2.83 L Hgb 8.0 L Hct 24.0 L MCV 85 D MCH 28.1 MCHC 33.1 RDW 14.7 H Plt Count 246 Seg Neutrophils % 79.4 H VBG pH VBG pCO2 VBG HCO3 VBG Base Excess Sodium 135.1 L Potassium 4.3 Chloride 102 Carbon Dioxide 27 Anion Gap 6 BUN 20 Creatinine 0.94 Est GFR ( Amer) > 60 Glucose 144 H Lactic Acid 1.7 Calcium 8.4 Total Bilirubin 0.1 L AST 19 Alkaline Phosphatase 120 Total Protein 5.0 L Albumin 2.3 L Urine Color Urine Appearance Urine pH Ur Specific [place] Urine Protein Urine Glucose (UA) Urine Ketones Urine Blood Urine Nitrite Ur Leukocyte Esterase Urine WBC (Auto) Urine RBC (Auto) Blood Type Antibody Screen 11/23/18 11/23/18 11/23/18 14:25 14:25 16:50 WBC RBC Hgb Hct MCV MCH MCHC RDW Plt Count Seg Neutrophils % VBG pH 7.49 H VBG pCO2 37.5 VBG HCO3 28.1 VBG Base Excess 4.2 Sodium Potassium Chloride Carbon Dioxide Anion Gap BUN Creatinine Est GFR ( Amer) Glucose Lactic Acid Calcium Total Bilirubin AST Alkaline Phosphatase Total Protein Albumin Urine Color JARED Urine Appearance TURBID Urine pH 5.0 Ur Specific [place] 1.018 Urine Protein 30 H Urine Glucose (UA) NEGATIVE Urine Ketones NEGATIVE Urine Blood MODERATE H Urine Nitrite NEGATIVE Ur Leukocyte Esterase LARGE H Urine WBC (Auto) >182 Urine RBC (Auto) 101 Blood Type O NEGATIVE Antibody Screen POSITIVE 11/23/18 11/24/18 21:46 03:14 WBC 9.1 7.8 RBC 2.59 L 2.69 L Hgb 7.3 L 7.5 L Hct 21.9 L 22.5 L MCV 85 84 MCH 28.4 27.8 MCHC 33.5 33.2 RDW 14.7 H 14.7 H Plt Count 221 221 Seg Neutrophils % VBG pH VBG pCO2 VBG HCO3 VBG Base Excess Sodium Potassium Chloride Carbon Dioxide Anion Gap BUN Creatinine Est GFR ( Amer) Glucose Lactic Acid Calcium Total Bilirubin AST Alkaline Phosphatase Total Protein Albumin Urine Color Urine Appearance Urine pH Ur Specific Oracle Urine Protein Urine Glucose (UA) Urine Ketones Urine Blood Urine Nitrite Ur Leukocyte Esterase Urine WBC (Auto) Urine RBC (Auto) Blood Type Antibody Screen Impressions: Chest X-Ray 11/23/18 15:41 IMPRESSION: STABLE CHRONIC CHANGES. NO APPARENT ACUTE RADIOGRAPHIC FINDING IN THE CHEST. Assessment and Plan - Diagnosis (1) Altered mental status Qualifiers: Altered mental status type: delirium Qualified Code(s): R41.0 - Disorientation, unspecified Is this a current diagnosis for this admission?: Yes Plan: Likely secondary to acute illness, and baseline underlying dementia (2) GI bleed Qualifiers: GI bleed type/associated pathology: unspecified gastrointestinal hemorrhage type Qualified Code(s): K92.2 - Gastrointestinal hemorrhage, unspecified Is this a current diagnosis for this admission?: Yes Plan: Lower GI bleed with a known 10 cm colonic ulcer, complicated by constipation, follow-up surgical consult, CBC and transfuse hemoglobin less than 8 while bleeding. (3) UTI (lower urinary tract infection) Is this a current diagnosis for this admission?: Yes Plan: Empiric antibiotics, follow-up CBC blood and urine culture - Time Time Spent with patient: 25-34 minutes - Inpatient Certification Medical Necessity: Need Close Monitoring Due to Risk of Patient Decompensation
[2018-11-24 09:07] LABS: HEMATOCRIT 24.9 % (36.0-47.0); HEMOGLOBIN 8.5 g/dL (12.0-15.5); MEAN CORPUSCULAR HEMOGLOBIN 28.1 pg (27.0-33.4); MEAN CORPUSCULAR HGB CONC 33.9 g/dL (32.0-36.0); MEAN CORPUSCULAR VOLUME 83 fl (80-97); PLATELET COUNT 213 10^3/uL (150-450); RED BLOOD COUNT 3.01 10^6/uL (3.72-5.28); RED CELL DISTRIBUTION WIDTH 15.6 % (11.5-14.0); WHITE BLOOD COUNT 7.1 10^3/uL (4.0-10.5)
[2018-11-24] MEDS: CIPROFLOXACIN 400 MG/D5W RTU 400 MG/200 ML RTUPB IV SCH ×2 (09:12→21:40)
[2018-11-24] MEDS: CARVEDILOL 12.5 MG TABLET PO SCH ×2 (09:12→21:40)
[2018-11-24] MEDS: AMLODIPINE BESYLATE 10 MG TABLET PO SCH (09:12)
[2018-11-24 09:14] LABS: ANION GAP 7 (5-19); BLOOD UREA NITROGEN 18 mg/dL (7-20); CALCIUM 8.4 mg/dL (8.4-10.2); CARBON DIOXIDE 24 mmol/L (22-30); CHLORIDE 103 mmol/L (98-107); GLUCOSE 149 mg/dL (75-110); POTASSIUM 3.7 mmol/L (3.6-5.0)
[2018-11-24] MEDS: CARBAMAZEPINE 200 MG TABLET PO SCH ×2 (09:48→21:40)
[2018-11-24] MEDS ORDERED: ALPRAZOLAM 0.25 MG TABLET PO PRN (10:00)
--- NOTE | 2018-11-24 10:03 | PDOC PROGRESS REPORT ---
Subjective Progress Note for:: 11/24/18 Subjective:: Patient on floor, feels better, got 1 unit of packed red blood cells. No further rectal bleeding Reason For Visit: GIB,ANEMIA,UTI,DEMENTIA Physical Exam Vital Signs: Temp Pulse Resp BP Pulse Ox 97.9 F 82 14 161/63 H 95 11/24/18 05:52 11/24/18 09:47 11/24/18 09:47 11/24/18 05:52 11/24/18 09:47 Intake & Output 11/23/18 11/24/18 11/25/18 06:59 06:59 06:59 Intake Total 800 100 Balance 800 100 Weight 71.8 kg General appearance: PRESENT: no acute distress, other - Awake alert and oriented x4 GI/Abdominal exam: PRESENT: other - Abdomen completely benign, soft, nontender no peritoneal signs no rigidity no distention Results Laboratory Results: 11/24/18 08:50 11/24/18 08:50 11/23/18 11/23/18 11/23/18 14:25 14:25 14:25 WBC 9.4 RBC 2.83 L Hgb 8.0 L Hct 24.0 L MCV 85 D MCH 28.1 MCHC 33.1 RDW 14.7 H Plt Count 246 Seg Neutrophils % 79.4 H VBG pH VBG pCO2 VBG HCO3 VBG Base Excess Sodium 135.1 L Potassium 4.3 Chloride 102 Carbon Dioxide 27 Anion Gap 6 BUN 20 Creatinine 0.94 Est GFR ( Amer) > 60 Glucose 144 H Lactic Acid 1.7 Calcium 8.4 Total Bilirubin 0.1 L AST 19 Alkaline Phosphatase 120 Total Protein 5.0 L Albumin 2.3 L Urine Color Urine Appearance Urine pH Ur Specific [place] Urine Protein Urine Glucose (UA) Urine Ketones Urine Blood Urine Nitrite Ur Leukocyte Esterase Urine WBC (Auto) Urine RBC (Auto) Blood Type Antibody Screen 11/23/18 11/23/18 11/23/18 14:25 14:25 16:50 WBC RBC Hgb Hct MCV MCH MCHC RDW Plt Count Seg Neutrophils % VBG pH 7.49 H VBG pCO2 37.5 VBG HCO3 28.1 VBG Base Excess 4.2 Sodium Potassium Chloride Carbon Dioxide Anion Gap BUN Creatinine Est GFR ( Amer) Glucose Lactic Acid Calcium Total Bilirubin AST Alkaline Phosphatase Total Protein Albumin Urine Color JARED Urine Appearance TURBID Urine pH 5.0 Ur Specific [place] 1.018 Urine Protein 30 H Urine Glucose (UA) NEGATIVE Urine Ketones NEGATIVE Urine Blood MODERATE H Urine Nitrite NEGATIVE Ur Leukocyte Esterase LARGE H Urine WBC (Auto) >182 Urine RBC (Auto) 101 Blood Type O NEGATIVE Antibody Screen POSITIVE 11/23/18 11/24/18 11/24/18 21:46 03:14 08:50 WBC 9.1 7.8 RBC 2.59 L 2.69 L Hgb 7.3 L 7.5 L Hct 21.9 L 22.5 L MCV 85 84 MCH 28.4 27.8 MCHC 33.5 33.2 RDW 14.7 H 14.7 H Plt Count 221 221 Seg Neutrophils % VBG pH VBG pCO2 VBG HCO3 VBG Base Excess Sodium 134.2 L Potassium 3.7 Chloride 103 Carbon Dioxide 24 Anion Gap 7 BUN 18 Creatinine 0.87 Est GFR ( Amer) > 60 Glucose 149 H Lactic Acid Calcium 8.4 Total Bilirubin AST Alkaline Phosphatase Total Protein Albumin Urine Color Urine Appearance Urine pH Ur Specific [place] Urine Protein Urine Glucose (UA) Urine Ketones Urine Blood Urine Nitrite Ur Leukocyte Esterase Urine WBC (Auto) Urine RBC (Auto) Blood Type Antibody Screen 11/24/18 08:50 WBC 7.1 RBC 3.01 L Hgb 8.5 L Hct 24.9 L MCV 83 MCH 28.1 MCHC 33.9 RDW 15.6 H Plt Count 213 Seg Neutrophils % VBG pH VBG pCO2 VBG HCO3 VBG Base Excess Sodium Potassium Chloride Carbon Dioxide Anion Gap BUN Creatinine Est GFR ( Amer) Glucose Lactic Acid Calcium Total Bilirubin AST Alkaline Phosphatase Total Protein Albumin Urine Color Urine Appearance Urine pH Ur Specific [place] Urine Protein Urine Glucose (UA) Urine Ketones Urine Blood Urine Nitrite Ur Leukocyte Esterase Urine WBC (Auto) Urine RBC (Auto) Blood Type Antibody Screen Impressions: Chest X-Ray 11/23/18 15:41 IMPRESSION: STABLE CHRONIC CHANGES. NO APPARENT ACUTE RADIOGRAPHIC FINDING IN THE CHEST. Assessment & Plan - Diagnosis (1) GI bleed Qualifiers: GI bleed type/associated pathology: unspecified gastrointestinal hemorrhage type Qualified Code(s): K92.2 - Gastrointestinal hemorrhage, unspecified Is this a current diagnosis for this admission?: Yes Plan: Impression: No further GI bleeding; received 1 unit of packed cells with incremental increase in hemoglobin to 8.5. Patient asymptomatic. Recommendations: 1. Discussed management with Dr. Sorto; no indication for further intervention from a endoscopic or surgical standpoint. 2. Suggested formalizing DNR in patient's record; Per patient and daughter's wishes, will not pursue endoscopic intervention at this time 3. We will sign off from surgical standpoint; reconsult surgery if clinically indicated (2) Do not resuscitate Is this a current diagnosis for this admission?: Yes (3) Sigmoid colon ulcer Is this a current diagnosis for this admission?: Yes (4) Essential hypertension Is this a current diagnosis for this admission?: Yes (5) Fall in home Qualifiers: Encounter type: initial encounter Qualified Code(s): W19.XXXA - Unspecified fall, initial encounter; Y92.009 - Unspecified place in unspecified non- institutional (private) residence as the place of occurrence of the external cause Is this a current diagnosis for this admission?: Yes (6) Heart murmur, aortic Is this a current diagnosis for this admission?: Yes (7) Constipation Is this a current diagnosis for this admission?: Yes
--- NOTE | 2018-11-24 13:33 | PDOC PROGRESS REPORT ---
Subjective Progress Note for:: 11/24/18 Subjective:: This is an 83 year old female with a past medical history of CHF, GERD, hypertension, anemia and lower GI bleed 1 month ago (transferred to [facility] and found to have a 10 cm colonic ulcer treated by epinephrine and clipping). She presented with bright red blood per rectum which was preceded by severe fecal impaction which was abruptly alleviated. In the emergency room she is found to have a hemoglobin of 8 without evidence of ongoing bleeding. She was given a unit of pRBC. No acute event overnight. No recurrence of bloody stools. No abdominal pain or hematemesis. Discussed with surgery on bedside. Patient says she is a DNR/DNI and she prefers conservative management and not to pursue further procedure or surgery if not strongly or imminently indicated. Reason For Visit: GIB,ANEMIA,UTI,DEMENTIA Physical Exam Vital Signs: Temp Pulse Resp BP Pulse Ox 97.9 F 82 14 161/63 H 95 11/24/18 05:52 11/24/18 09:47 11/24/18 09:47 11/24/18 05:52 11/24/18 09:47 Intake & Output 11/23/18 11/24/18 11/25/18 06:59 06:59 06:59 Intake Total 800 400 Balance 800 400 Weight 158 lb 4.67 oz General appearance: PRESENT: no acute distress, well-developed, well-nourished Head exam: PRESENT: atraumatic, normocephalic Eye exam: PRESENT: conjunctiva pink, EOMI, PERRLA. ABSENT: scleral icterus Ear exam: PRESENT: normal external ear exam Mouth exam: PRESENT: moist, tongue midline Neck exam: ABSENT: carotid bruit, JVD, lymphadenopathy, thyromegaly Respiratory exam: PRESENT: clear to auscultation ulysses. ABSENT: rales, rhonchi, wheezes Cardiovascular exam: PRESENT: RRR. ABSENT: diastolic murmur, rubs, systolic murmur Pulses: PRESENT: normal dorsalis pedis pul GI/Abdominal exam: PRESENT: normal bowel sounds, soft. ABSENT: distended, guarding, mass, organolmegaly, rebound, tenderness Rectal exam: PRESENT: deferred Neurological exam: PRESENT: alert, awake, oriented to person, oriented to place, oriented to time, oriented to situation, CN II-XII grossly intact. ABSENT: motor sensory deficit Results Laboratory Results: 11/24/18 08:50 11/24/18 08:50 11/23/18 11/23/18 11/23/18 14:25 14:25 14:25 WBC 9.4 RBC 2.83 L Hgb 8.0 L Hct 24.0 L MCV 85 D MCH 28.1 MCHC 33.1 RDW 14.7 H Plt Count 246 Seg Neutrophils % 79.4 H VBG pH VBG pCO2 VBG HCO3 VBG Base Excess Sodium 135.1 L Potassium 4.3 Chloride 102 Carbon Dioxide 27 Anion Gap 6 BUN 20 Creatinine 0.94 Est GFR ( Amer) > 60 Glucose 144 H Lactic Acid 1.7 Calcium 8.4 Total Bilirubin 0.1 L AST 19 Alkaline Phosphatase 120 Total Protein 5.0 L Albumin 2.3 L Urine Color Urine Appearance Urine pH Ur Specific [place] Urine Protein Urine Glucose (UA) Urine Ketones Urine Blood Urine Nitrite Ur Leukocyte Esterase Urine WBC (Auto) Urine RBC (Auto) Blood Type Antibody Screen 11/23/18 11/23/18 11/23/18 14:25 14:25 16:50 WBC RBC Hgb Hct MCV MCH MCHC RDW Plt Count Seg Neutrophils % VBG pH 7.49 H VBG pCO2 37.5 VBG HCO3 28.1 VBG Base Excess 4.2 Sodium Potassium Chloride Carbon Dioxide Anion Gap BUN Creatinine Est GFR ( Amer) Glucose Lactic Acid Calcium Total Bilirubin AST Alkaline Phosphatase Total Protein Albumin Urine Color JARED Urine Appearance TURBID Urine pH 5.0 Ur Specific [place] 1.018 Urine Protein 30 H Urine Glucose (UA) NEGATIVE Urine Ketones NEGATIVE Urine Blood MODERATE H Urine Nitrite NEGATIVE Ur Leukocyte Esterase LARGE H Urine WBC (Auto) >182 Urine RBC (Auto) 101 Blood Type O NEGATIVE Antibody Screen POSITIVE 11/23/18 11/24/18 11/24/18 21:46 03:14 08:50 WBC 9.1 7.8 RBC 2.59 L 2.69 L Hgb 7.3 L 7.5 L Hct 21.9 L 22.5 L MCV 85 84 MCH 28.4 27.8 MCHC 33.5 33.2 RDW 14.7 H 14.7 H Plt Count 221 221 Seg Neutrophils % VBG pH VBG pCO2 VBG HCO3 VBG Base Excess Sodium 134.2 L Potassium 3.7 Chloride 103 Carbon Dioxide 24 Anion Gap 7 BUN 18 Creatinine 0.87 Est GFR ( Amer) > 60 Glucose 149 H Lactic Acid Calcium 8.4 Total Bilirubin AST Alkaline Phosphatase Total Protein Albumin Urine Color Urine Appearance Urine pH Ur Specific [place] Urine Protein Urine Glucose (UA) Urine Ketones Urine Blood Urine Nitrite Ur Leukocyte Esterase Urine WBC (Auto) Urine RBC (Auto) Blood Type Antibody Screen 11/24/18 08:50 WBC 7.1 RBC 3.01 L Hgb 8.5 L Hct 24.9 L MCV 83 MCH 28.1 MCHC 33.9 RDW 15.6 H Plt Count 213 Seg Neutrophils % VBG pH VBG pCO2 VBG HCO3 VBG Base Excess Sodium Potassium Chloride Carbon Dioxide Anion Gap BUN Creatinine Est GFR ( Amer) Glucose Lactic Acid Calcium Total Bilirubin AST Alkaline Phosphatase Total Protein Albumin Urine Color Urine Appearance Urine pH Ur Specific [place] Urine Protein Urine Glucose (UA) Urine Ketones Urine Blood Urine Nitrite Ur Leukocyte Esterase Urine WBC (Auto) Urine RBC (Auto) Blood Type Antibody Screen Impressions: Chest X-Ray 11/23/18 15:41 IMPRESSION: STABLE CHRONIC CHANGES. NO APPARENT ACUTE RADIOGRAPHIC FINDING IN THE CHEST. Assessment and Plan - Diagnosis (1) Lower GI bleed Is this a current diagnosis for this admission?: Yes Plan: No recurrence of bleeding. S/P 1 u pRBC. Hb has trended up to 8.5 from 7.3. As mentioned, patient expressed she wants to be managed conservatively for now. (2) CAD (coronary artery disease) Qualifiers: Coronary Disease-Associated Artery/Lesion type: [place] artery [place] vs. t ransplanted heart: [place] heart Associated angina: with unstable angina Qualified Code(s): I25.110 - Atherosclerotic heart disease of [place] coronary artery with unstable angina pectoris Is this a current diagnosis for this admission?: Yes (3) COPD (chronic obstructive pulmonary disease) Qualifiers: COPD type: unspecified COPD Qualified Code(s): J44.9 - Chronic obstructive pulmonary disease, unspecified Is this a current diagnosis for this admission?: Yes (4) UTI (urinary tract infection) Is this a current diagnosis for this admission?: Yes (5) Anemia Is this a current diagnosis for this admission?: Yes Plan: Hb improved to 8.5 afetr 1 u pRBC.
--- NOTE | 2018-11-24 13:35 | ADVANCED CARE ---
- Diagnosis (1) Lower GI bleed Diagnosis Current: Yes (2) CAD (coronary artery disease) Diagnosis Current: Yes (3) COPD (chronic obstructive pulmonary disease) Diagnosis Current: Yes (4) UTI (urinary tract infection) Diagnosis Current: Yes (5) Anemia Diagnosis Current: Yes Resuscitation Status: Do Not Resuscitate Discussion: Discussed with patient and surgeon in bedside. She says that she has advanced directive papers and that she does not want any chest compressions, defibrillation or mechanical ventilation if the need arises. She verbalizes she does not want us risking and causing her chest to break from the chest compressions nor would she want to be on a breathing machine. She says her daughter, Everardo Campbell, is her surrogate medical decision-maker.
[2018-11-24 16:22] LABS: HEMATOCRIT 24.6 % (36.0-47.0); HEMOGLOBIN 8.3 g/dL (12.0-15.5); MEAN CORPUSCULAR HEMOGLOBIN 27.4 pg (27.0-33.4); MEAN CORPUSCULAR HGB CONC 33.5 g/dL (32.0-36.0); MEAN CORPUSCULAR VOLUME 82 fl (80-97); PLATELET COUNT 214 10^3/uL (150-450); RED BLOOD COUNT 3.02 10^6/uL (3.72-5.28); RED CELL DISTRIBUTION WIDTH 15.8 % (11.5-14.0); WHITE BLOOD COUNT 5.8 10^3/uL (4.0-10.5)
[2018-11-24] MEDS: PANTOPRAZOLE SODIUM 40 MG VIAL IV SCH (21:40)
[2018-11-24] MEDS: DONEPEZIL HCL 5 MG TABLET PO SCH (21:40)
[2018-11-25 04:57] LABS: ANION GAP 5 (5-19); BLOOD UREA NITROGEN 14 mg/dL (7-20); CALCIUM 8.5 mg/dL (8.4-10.2); CARBON DIOXIDE 25 mmol/L (22-30); CHLORIDE 105 mmol/L (98-107); GLUCOSE 99 mg/dL (75-110); POTASSIUM 4.2 mmol/L (3.6-5.0)
[2018-11-25] MEDS: METRONIDAZOLE 500 MG/NS RTU 500 MG/100 ML RTUPB IV SCH ×2 (05:06→10:59)
[2018-11-25] MEDS: CARBAMAZEPINE 200 MG TABLET PO SCH ×2 (08:59→21:47)
[2018-11-25] MEDS: CIPROFLOXACIN 400 MG/D5W RTU 400 MG/200 ML RTUPB IV SCH (08:59)
[2018-11-25] MEDS: PANTOPRAZOLE SODIUM 40 MG VIAL IV SCH ×2 (08:59→21:47)
[2018-11-25] MEDS: CARVEDILOL 12.5 MG TABLET PO SCH ×2 (08:59→21:47)
[2018-11-25] MEDS: AMLODIPINE BESYLATE 10 MG TABLET PO SCH (08:59)
[2018-11-25 09:16] LABS: HEMATOCRIT 24.5 % (36.0-47.0); HEMOGLOBIN 8.2 g/dL (12.0-15.5); MEAN CORPUSCULAR HEMOGLOBIN 27.6 pg (27.0-33.4); MEAN CORPUSCULAR HGB CONC 33.4 g/dL (32.0-36.0); MEAN CORPUSCULAR VOLUME 83 fl (80-97); PLATELET COUNT 220 10^3/uL (150-450); RED BLOOD COUNT 2.97 10^6/uL (3.72-5.28); RED CELL DISTRIBUTION WIDTH 15.5 % (11.5-14.0); WHITE BLOOD COUNT 5.5 10^3/uL (4.0-10.5)
--- NOTE | 2018-11-25 16:29 | PDOC PROGRESS REPORT ---
Subjective Progress Note for:: 11/25/18 Subjective:: This is an 83 year old female with a past medical history of CHF, GERD, hypertension, anemia and lower GI bleed 1 month ago (transferred to [facility] and found to have a 10 cm colonic ulcer treated by epinephrine and clipping). She presented with bright red blood per rectum which was preceded by severe fecal impaction which was abruptly alleviated. In the emergency room she is found to have a hemoglobin of 8 without evidence of ongoing bleeding. She was given a unit of pRBC. 11/24: No recurrence of bloody stools. No abdominal pain or hematemesis. Discussed with surgery on bedside. Patient says she is a DNR/DNI and she prefers conservative management and not to pursue further procedure or surgery if not strongly or imminently indicated. 11/25: No acute event overnight. Patient had a bowel movement last night with minimal bright red blood but hemoglobin has been stable. No recurrence of hematochezia or melena so far this morning. Called by lab this morning that blood culture is growing gram-positive cocci in clusters 03/27. She does not have any fever or chills. No leukocytosis. Anticipate discharge in the next 24 hours if blood culture is more consistent with contamination and hemoglobin remained stable. Reason For Visit: GIB,ANEMIA,UTI,DEMENTIA Physical Exam Vital Signs: Temp Pulse Resp BP Pulse Ox 98.5 F 74 15 120/55 L 95 11/25/18 11:27 11/25/18 13:59 11/25/18 12:26 11/25/18 11:27 11/25/18 12:26 Intake & Output 11/24/18 11/25/18 11/26/18 06:59 06:59 06:59 Intake Total 800 2067 1140 Balance 800 2067 1140 Weight 158 lb 4.67 oz 155 lb 10.342 oz General appearance: PRESENT: no acute distress, well-developed, well-nourished Head exam: PRESENT: atraumatic, normocephalic Eye exam: PRESENT: conjunctiva pink, EOMI, PERRLA. ABSENT: scleral icterus Ear exam: PRESENT: normal external ear exam Mouth exam: PRESENT: moist, tongue midline Neck exam: ABSENT: carotid bruit, JVD, lymphadenopathy, thyromegaly Respiratory exam: PRESENT: clear to auscultation ulysses. ABSENT: rales, rhonchi, wheezes Cardiovascular exam: PRESENT: RRR. ABSENT: diastolic murmur, rubs, systolic murmur Pulses: PRESENT: normal dorsalis pedis pul GI/Abdominal exam: PRESENT: normal bowel sounds, soft. ABSENT: distended, guarding, mass, organolmegaly, rebound, tenderness Rectal exam: PRESENT: deferred Neurological exam: PRESENT: alert, awake, oriented to person, oriented to place, oriented to time, oriented to situation, CN II-XII grossly intact. ABSENT: motor sensory deficit Results Laboratory Results: 11/25/18 03:42 11/25/18 03:42 11/24/18 11/25/18 11/25/18 15:55 03:42 03:42 WBC 5.8 5.5 RBC 3.02 L 2.97 L Hgb 8.3 L 8.2 L Hct 24.6 L 24.5 L MCV 82 83 MCH 27.4 27.6 MCHC 33.5 33.4 RDW 15.8 H 15.5 H Plt Count 214 220 Sodium 135.3 L Potassium 4.2 Chloride 105 Carbon Dioxide 25 Anion Gap 5 BUN 14 Creatinine 0.77 Est GFR ( Amer) > 60 Glucose 99 Calcium 8.5 11/23/18 16:50 Catheterized Urine Urine Culture - Final Escherichia Coli Impressions: Chest X-Ray 11/23/18 15:41 IMPRESSION: STABLE CHRONIC CHANGES. NO APPARENT ACUTE RADIOGRAPHIC FINDING IN THE CHEST. Assessment and Plan - Diagnosis (1) Lower GI bleed Is this a current diagnosis for this admission?: Yes Plan: 11/24: No recurrence of bleeding. S/P 1 u pRBC. Hb has trended up to 8.5 from 7.3. She is a DNR/DNI and as mentioned, patient expressed she wants to be managed conservatively for now. 11/25: Patient had a bowel movement last night with minimal bright red blood but hemoglobin has been stable. No recurrence of hematochezia or melena so far this morning. (2) CAD (coronary artery disease) Qualifiers: Coronary Disease-Associated Artery/Lesion type: [place] artery [place] vs. transplanted heart: [place] heart Associated angina: with unstable angina Qualified Code(s): I25.110 - Atherosclerotic heart disease of [place] coronary artery with unstable angina pectoris Is this a current diagnosis for this admission?: Yes Plan: Stable. (3) COPD (chronic obstructive pulmonary disease) Qualifiers: COPD type: unspecified COPD Qualified Code(s): J44.9 - Chronic obstructive pulmonary disease, unspecified Is this a current diagnosis for this admission?: Yes Plan: Not in exacerbation. Breathing treatments as needed. (4) UTI (urinary tract infection) Is this a current diagnosis for this admission?: Yes Plan: Urine culture grew pansensitive E. coli. Switch IV antibiotics to p.o. ciprofloxacin. (5) Anemia Is this a current diagnosis for this admission?: Yes Plan: Hemoglobin has remained stable. - Time Time Spent with patient: 25-34 minutes
[2018-11-25] MEDS: SERTRALINE HCL 50 MG TABLET PO SCH (21:47)
[2018-11-25] MEDS: CIPROFLOXACIN HCL 500 MG TABLET PO SCH (21:47)
[2018-11-25] MEDS: DONEPEZIL HCL 5 MG TABLET PO SCH (21:47)
[2018-11-26 06:03] LABS: ANION GAP 5 (5-19); BLOOD UREA NITROGEN 12 mg/dL (7-20); CALCIUM 8.5 mg/dL (8.4-10.2); CARBON DIOXIDE 25 mmol/L (22-30); CHLORIDE 106 mmol/L (98-107); GLUCOSE 98 mg/dL (75-110); POTASSIUM 4.1 mmol/L (3.6-5.0)
--- NOTE | 2018-11-26 07:38 | Progress Note Acknowledgement ---
Progress Note Acknowledgement Progess Note Acknowledgement: I, the undersigned member of the medical staff with appropriate privileges and with supervisory authority over [Tristen Ceron], a dependent practice allied health professional, acknowledge that I have reviewed the progress notes entered on this patient, and in my professional judgment believe that the assessment made and/or any care evidenced was appropriate
--- NOTE | 2018-11-26 07:43 | PDOC DISCHARGE SUMMARY ---
General - Admit/Disc Date/PCP Admission Date/Primary Care Provider: 11/23/18 21:03 CHERISE REGALADO MD Discharge Date: 11/26/18 - Discharge Diagnosis (1) Altered mental status Is this a current diagnosis for this admission?: Yes (2) GI bleed Is this a current diagnosis for this admission?: Yes (3) UTI (urinary tract infection) Is this a current diagnosis for this admission?: Yes - Additional Information Resuscitation Status: Do Not Resuscitate Discharge Diet: As Tolerated Discharge Activity: Activity As Tolerated Prescriptions: Ciprofloxacin HCl [Cipro 500 mg Tablet] 500 mg PO Q12 #14 tablet Home Medications: Alprazolam [Xanax 0.25 mg Tablet] 0.25 mg PO BIDP PRN 11/24/18 Amlodipine Besylate [Norvasc 10 mg Tablet] 10 mg PO QAM 11/24/18 Carbamazepine [Tegretol 200 mg Tablet] 400 mg PO BID 11/24/18 Carvedilol [Coreg 25 mg Tablet] 25 mg PO Q12 11/24/18 Docusate Sodium [Colace 100 mg Capsule] 100 mg PO BIDP PRN 11/24/18 Donepezil HCl [Aricept 5 mg Tablet] 5 mg PO QHS 11/24/18 Ferrous Sulfate [Feosol 325 mg Tablet] 325 mg PO BID 11/24/18 Lisinopril [Zestril] 10 mg PO QAM 11/24/18 Oxycodone HCl [Oxy-Ir 5 mg Tablet] 5 mg PO Q8HP PRN 11/24/18 Primidone [Mysoline] 100 mg PO TID 11/24/18 Ranitidine HCl [Zantac] 300 mg PO WSUPPER 11/24/18 Rosuvastatin Calcium [Crestor 10 mg Tablet] 10 mg PO QHS 11/24/18 Sertraline HCl [Zoloft 50 mg Tablet] 50 mg PO QHS 11/24/18 Sucralfate [Carafate 1 gm Tablet] 1 gm PO MEALSHS MDD QID 0730,1230,1630,2000 11/24/18 Ciprofloxacin HCl [Cipro 500 mg Tablet] 500 mg PO Q12 #14 tablet 11/26/18 History of Present Illness Patient complains of: None this a.m. History of Present Illness: BERNABE DORMAN is a 83 year old female who presented to the emergency depa rtment from [facility] after having what was found to be bright red blood per rectum. Hospital Course Hospital Course: Patient presented to ER from [facility] with bright red blood per rectum. Patient will was treated previously for a 10 cm colonic ulcer with epinephrine and clipping. Prior to arrival to the ER she had 24 hours of bright red blood per rectum preceded by a severe fecal impaction which was abruptly alleviated. In the emergency department she is found to have a hemoglobin of 8 without evidence of ongoing bleeding and hemodynamically stable. She also was found to have a urinary tract infection. Patient was admitted treated for UTI and had serial hemoglobins drawn. Patient did have one bout of bright red blood per rectum yesterday although her hemoglobin stayed stable and she was hemodynamically stable. At this time patient is improved sufficiently return back to [facility] as she wants only conservative measures at this time. Physical Exam Vital Signs: Temp Pulse Resp BP Pulse Ox 98.8 F 88 15 137/62 H 98 11/25/18 23:19 11/26/18 02:00 11/25/18 23:19 11/25/18 23:19 11/25/18 23:19 Intake & Output 11/25/18 11/26/18 11/27/18 06:59 06:59 06:59 Intake Total 2066 1400 Output Total 200 Balance 2066 1200 Weight 70.6 kg 72.8 kg General appearance: PRESENT: no acute distress, well-developed, well-nourished Neck exam: ABSENT: carotid bruit, JVD, lymphadenopathy, thyromegaly Respiratory exam: PRESENT: clear to auscultation ulysses. ABSENT: rales, rhonchi, wheezes Cardiovascular exam: PRESENT: RRR. ABSENT: diastolic murmur, rubs, systolic murmur Pulses: PRESENT: normal dorsalis pedis pul Vascular exam: PRESENT: normal capillary refill GI/Abdominal exam: PRESENT: normal bowel sounds, soft. ABSENT: distended, guarding, mass, organolmegaly, rebound, tenderness Rectal exam: PRESENT: deferred Extremities exam: PRESENT: full ROM. ABSENT: calf tenderness, clubbing, pedal edema Neurological exam: PRESENT: alert, awake, oriented to person, oriented to place, oriented to time, oriented to situation, CN II-XII grossly intact. ABSENT: motor sensory deficit Psychiatric exam: PRESENT: appropriate affect, normal mood. ABSENT: homicidal ideation, suicidal ideation Skin exam: PRESENT: dry, intact, warm. ABSENT: cyanosis, rash Results Laboratory Results: 11/25/18 03:42 11/26/18 04:42 11/25/18 11/26/18 03:42 04:42 WBC 5.5 RBC 2.97 L Hgb 8.2 L Hct 24.5 L MCV 83 MCH 27.6 MCHC 33.4 RDW 15.5 H Plt Count 220 Sodium 136.2 L Potassium 4.1 Chloride 106 Carbon Dioxide 25 Anion Gap 5 BUN 12 Creatinine 0.82 Est GFR ( Amer) > 60 Glucose 98 Calcium 8.5 11/23/18 16:50 Catheterized Urine Urine Culture - Final Escherichia Coli Impressions: Chest X-Ray 11/23/18 15:41 IMPRESSION: STABLE CHRONIC CHANGES. NO APPARENT ACUTE RADIOGRAPHIC FINDING IN THE CHEST. Qualifiers - * PATIENT BEING DISCHARGED WITH ANY OF THE FOLLOWING DIAGNOSIS: No Acute Heart Failure - Is this a Heart Failure Patient?: No Reason(s) not discharged on anticoagulant therapy for permanect/persistent/paraoxysmal Afib or Aflutter: Other Plan Time Spent: Greater than 30 Minutes
[2018-11-26] MEDS: CARVEDILOL 12.5 MG TABLET PO SCH (10:01)
[2018-11-26] MEDS: AMLODIPINE BESYLATE 10 MG TABLET PO SCH (10:01)
[2018-11-26] MEDS: PANTOPRAZOLE SODIUM 40 MG VIAL IV SCH (10:02)
[2018-11-26] MEDS: CARBAMAZEPINE 200 MG TABLET PO SCH (10:02)
[2018-11-26] MEDS: CIPROFLOXACIN HCL 500 MG TABLET PO SCH (10:02)
[2018-11-26 11:24] VITALS: BP 170/82
[2018-11-26] MEDS ORDERED: LISINOPRIL 10 MG TABLET PO SCH (13:00)
== END 2018-11-26 14:03 | DRG 378 ==
LOC: ER 14:17 → EH 21:03 → 4S 22:31 → 4N 11-25 18:10
PROVIDERS: ADMIT Internal Medicine; ATTEND Internal Medicine
PROC: 30233N1 Transfusion of Nonautologous Red Blood Cells into Peripheral Vein, Percutaneous Approach (ICD-10-PCS; principal; 2018-11-24)
DX: K92.2 Gastrointestinal hemorrhage, unspecified (principal); N39.0 Urinary tract infection, site not specified; R41.82 Altered mental status, unspecified; R62.7 Adult failure to thrive; D64.9 Anemia, unspecified; I11.0 Hypertensive heart disease with heart failure; I50.9 Heart failure, unspecified; K21.9 Gastro-esophageal reflux disease without esophagitis; I25.10 Atherosclerotic heart disease of native coronary artery without angina pectoris; E78.00 Pure hypercholesterolemia, unspecified; I35.8 Other nonrheumatic aortic valve disorders; K59.00 Constipation, unspecified; J44.9 Chronic obstructive pulmonary disease, unspecified; Z66 Do not resuscitate; Z96.641 Presence of right artificial hip joint; Z85.3 Personal history of malignant neoplasm of breast; Z85.118 Personal history of other malignant neoplasm of bronchus and lung
CPT/HCPCS: 36415; 36430; 71045; 80048; 80053; 81001; 82803; 83605; 85025; 85027; 85610; 85730; 86850; 86870; 86900; 86901; 86920; 86922; 87040; 87077; 87086; 87088; 87186; 93005; 93010; 96365; 96366; 99285; J0696; J0744; J3490; P9016; S0164

== ENCOUNTER 2018-12-07 14:22 | Emergency (ER) | payer MEDICARE, OTHER ==
[2018-12-07 15:48] LABS: INTERNATIONAL RATION (INR) 1.08; PARTIAL THROMBOPLASTIN TIME 26.9 SEC (23.5-35.8)
[2018-12-07 15:50] LABS: ABSOLUTE EOSINOPHILS # (AUTO) 0.1 10^3/uL (0.0-0.6); ABSOLUTE LYMPHOCYTES (AUTO) 1.5 10^3/uL (0.5-4.7); ABSOLUTE MONOCYTES (AUTO) 0.4 10^3/uL (0.1-1.4); ABSOLUTE NEUT (AUTO) 2.5 10^3/uL (1.7-8.2); BASOPHILS % (AUTO) 0.6 % (0-2); HEMATOCRIT 21.9 % (36.0-47.0); LYMPHOCYTES % (AUTO) 33.9 % (13-45); MEAN CORPUSCULAR HEMOGLOBIN 27.2 pg (27.0-33.4); MEAN CORPUSCULAR HGB CONC 32.4 g/dL (32.0-36.0); MEAN CORPUSCULAR VOLUME 84 fl (80-97); MONOCYTES % (AUTO) 7.9 % (3-13); PLATELET COUNT 265 10^3/uL (150-450); RED CELL DISTRIBUTION WIDTH 16.5 % (11.5-14.0); SEGMENTED NEUTROPHILS % (AUTO) 55.6 % (42-78); TOTAL CELLS COUNTED % (AUTO) 100 %; WHITE BLOOD COUNT 4.6 10^3/uL (4.0-10.5)
[2018-12-07 15:52] LABS: ALBUMIN 2.7 g/dL (3.5-5.0); ALKALINE PHOSPHATASE 96 U/L (38-126); ASPARTATE AMINO TRANSFERASE 17 U/L (14-36); BLOOD UREA NITROGEN 21 mg/dL (7-20); CALCIUM 8.8 mg/dL (8.4-10.2); CARBON DIOXIDE 29 mmol/L (22-30); CHLORIDE 105 mmol/L (98-107); GLUCOSE 107 mg/dL (75-110); POTASSIUM 4.5 mmol/L (3.6-5.0); TOTAL PROTEIN 5.4 g/dL (6.3-8.2)
--- NOTE | 2018-12-07 15:52 | ER Document Report ---
ED General - General Chief Complaint: Rectal Bleeding Stated Complaint: RECTAL BLEEDING Time Seen by Provider: 12/07/18 15:15 Primary Care Provider: CHERISE REGALADO MD [Primary Care Provider] - Follow up as needed TRAVEL OUTSIDE OF THE [place] IN LAST 30 DAYS: No - HPI Notes: Patient is an 83-year-old female presents to the emergency department for evaluation of rectal bleeding. She is had ongoing rectal bleeding for the last several months, but is worse over the last 3 days. She has had a complicated medical course since a hip and right wrist injury. She was eventually sent to the [facility] for colonic ulcers. She had some improvement, but his blood daily for some time. She states that over the last 3 days she has continuous rectal bleeding. She has some black stool, but is on iron. She states she is also seeing maroon and dark blood, as well as clots. She states is continuous, does not need to be having a bowel movement. She states she is really not having any abdominal pain at this time, states she has not had any since the initial episodes of bleeding. She states she just feels fatigued and weak. According to patient her hemoglobin was 7.4 on . This was evidently not addressed at the senior living. She states her bleeding is worsened since then. - Related Data Allergies/Adverse Reactions: promethazine HCl [From Phenergan] Allergy (Verified 12/07/18 14:57) Past Medical History - General Information source: Patient, Relative - Social History Smoking Status: Former Smoker Frequency of alcohol use: None Drug Abuse: None Family History: Reviewed & Not Pertinent, Hypertension Patient has suicidal ideation: No Patient has homicidal ideation: No - Past Medical History Cardiac Medical History: Reports: Hx Congestive Heart Failure, Hx Coronary Artery Disease, Hx Hypercholesterolemia, Hx Hypertension Denies: Hx Heart Attack Pulmonary Medical History: Reports: Hx COPD Denies: Hx Asthma, Hx Bronchitis, Hx Pneumonia Neurological Medical History: Reports: Hx Seizures. Denies: Hx Cerebrovascular Accident Renal/ Medical History: Denies: Hx Peritoneal Dialysis Malignancy Medical History: Reports: Hx Breast Cancer, Hx Lung Cancer GI Medical History: Reports: Hx Gastroesophageal Reflux Disease, Hx Hiatal Hernia, Hx Ulcer Musculoskeletal Medical History: Denies Hx Arthritis Psychiatric Medical History: Reports: Hx Depression Past Surgical History: Reports: Hx Abdominal Surgery, Hx Breast Surgery - Left mastectomy for breast cancer, Hx Cardiac Catheterization, Hx Cardiac Surgery, Hx Section, Hx Coronary Stent, Hx Gynecologic Surgery - , Hx Hysterectomy, Hx Mastectomy - Left, Hx Orthopedic Surgery - right hip replacement - Immunizations Hx Diphtheria, Pertussis, Tetanus Vaccination: Yes Hx Pneumococcal Vaccination: 03/26/14 Review of Systems - Review of Systems Constitutional: See HPI EENT: No symptoms reported Cardiovascular: No symptoms reported Respiratory: No symptoms reported Gastrointestinal: See HPI Genitourinary: No symptoms reported Musculoskeletal: No symptoms reported Skin: No symptoms reported Neurological/Psychological: No symptoms reported Physical Exam - Vital signs Vitals: Temp Pulse Resp BP Pulse Ox 98.5 F 80 18 133/58 H 99 12/07/18 14:34 12/07/18 14:34 12/07/18 14:34 12/07/18 14:34 12/07/18 14:34 - Notes Notes: Vital signs reviewed, please refer to chart. Head is normocephalic, atraumatic. Pupils equal round, reactive to light. Conjunctive are pale. Neck is supple without meningismus. Heart is regular rate and rhythm. Lungs are clear to auscultation bilaterally. Abdomen is soft, nontender, normoactive bowel sounds throughout. Extremities without cyanosis, clubbing. Posterior calves are non tender. Patient has a large amount of black and maroon stool with occasional clots noted. Peripheral pulses are equal. Skin is warm and dry. Patient is awake, alert, neurological exam is nonfocal. Course - Re-evaluation Re-evalutation: 12/07/18 21:31 Patient presents emergency department for evaluation of rectal bleeding. This is been an ongoing issue. She is Brandt on iron. She is known to be anemic. Her laboratory investigations were obtained and her hemoglobin was 7.1. This was minimal drop from earlier this week. I spoke with Dr. Rangel, the surgeon she has seen in the past. The patient has significant ulcerations of her colon. She has already had a procedure to try and slow the bleeding at violent. He do es not believe she is a good surgical candidate at this time. He encourages patient and family to consider how aggressive they want to be at this point. I did discuss this with patient, patient's daughter, patient's son. It was agreed that the patient should undergo transfusions to help with her symptoms. She has an appointment with Dr. Rangel on Sunday for follow-up. At that point they can discuss changes and options going forward. Patient and family are amenable to this plan. 12/07/18 23:07 Patient remained stable. She is discharged back to the senior living to follow- up with Dr. Rangel next week. - Vital Signs Vital signs: Temp Pulse Resp BP Pulse Ox 99.2 F 83 21 H 157/70 H 96 12/07/18 22:02 12/07/18 22:40 12/07/18 23:01 12/07/18 23:01 12/07/18 23:01 - Laboratory Result Diagrams: 12/07/18 14:45 12/07/18 14:45 Laboratory results interpreted by me: 12/07/18 12/07/18 12/07/18 14:45 14:45 14:45 RBC 2.60 L Hgb 7.1 L Hct 21.9 L RDW 16.5 H Anion Gap 4 L BUN 21 H Est GFR (MDRD) Non-Af 52 L Total Bilirubin < 0.1 L Total Protein 5.4 L Albumin 2.7 L Crossmatch See Detail Discharge - Discharge Clinical Impression: Lower GI bleed, Anemia Condition: Stable Disposition: HOME-SNF (ED ONLY) Instructions: Anemia ([facility]) Additional Instructions: Continue your iron as previously ordered. Follow-up with Dr. Rangel as scheduled on Sunday. If you develop worsening or new concerning symptoms of any sort, return immediately to the emergency department for evaluation. Referrals: CHERISE REGALADO MD [Primary Care Provider] - Follow up as needed
[2018-12-07 15:53] LABS: BILIRUBIN,TOTAL < 0.1 mg/dL (0.2-1.3)
[2018-12-07 15:54] LABS: ANION GAP 4 (5-19); HEMOGLOBIN 7.1 g/dL (12.0-15.5)
[2018-12-07] MEDS ORDERED: NYSTATIN CREAM 15 GM TP ONE (17:35)
[2018-12-07] MEDS ORDERED: NORMAL SALINE 250 ML IV PRN (17:35)
[2018-12-08 02:06] LABS: APPEARANCE,URINE TURBID; BILIRUBIN,URINE NEGATIVE (NEGATIVE); COLOR,URINE AMBER; GLUCOSE, URINE NEGATIVE (NEGATIVE); KETONES,URINE NEGATIVE (NEGATIVE); LEUKOCYTE ESTERASE,URINE MODERATE (NEGATIVE); NITRITE,URINE NEGATIVE (NEGATIVE); PROTEIN,URINE NEGATIVE (NEGATIVE); URINE SPECIFIC GRAVITY 1.017; UROBILINOGEN,URINE NEGATIVE mg/dL (<2.0)
[2018-12-08 03:13] VITALS: BP 171/79
== END 2018-12-08 03:25 ==
LOC: ER 14:22
DX: D64.9 Anemia, unspecified (principal); K92.2 Gastrointestinal hemorrhage, unspecified; K63.3 Ulcer of intestine; R53.83 Other fatigue; R53.1 Weakness; I25.10 Atherosclerotic heart disease of native coronary artery without angina pectoris; I10 Essential (primary) hypertension; J44.9 Chronic obstructive pulmonary disease, unspecified; Z85.3 Personal history of malignant neoplasm of breast; Z85.118 Personal history of other malignant neoplasm of bronchus and lung; Z98.890 Other specified postprocedural states; Z87.19 Personal history of other diseases of the digestive system; Z79.899 Other long term (current) drug therapy; Z88.8 Allergy status to other drugs, medicaments and biological substances; Z87.891 Personal history of nicotine dependence; Z95.5 Presence of coronary angioplasty implant and graft
CPT/HCPCS: 86900; 86901; 36415; 36430; 86870; 86850; 86922; 85025; 85610; 85730; 80053; 81001; 86920; P9016; J3490; 99285

== ENCOUNTER 2018-12-08 18:02 | Emergency (ER) | payer MEDICARE, OTHER ==
[2018-12-08 19:16] LABS: ABSOLUTE EOSINOPHILS # (AUTO) 0.1 10^3/uL (0.0-0.6); ABSOLUTE LYMPHOCYTES (AUTO) 2.2 10^3/uL (0.5-4.7); ABSOLUTE MONOCYTES (AUTO) 0.6 10^3/uL (0.1-1.4); ABSOLUTE NEUT (AUTO) 3.8 10^3/uL (1.7-8.2); BASOPHILS % (AUTO) 0.4 % (0-2); EOSINOPHILS % (AUTO) 1.3 % (0-6); HEMATOCRIT 29.6 % (36.0-47.0); LYMPHOCYTES % (AUTO) 32.4 % (13-45); MEAN CORPUSCULAR HEMOGLOBIN 28.6 pg (27.0-33.4); MEAN CORPUSCULAR HGB CONC 33.9 g/dL (32.0-36.0); MEAN CORPUSCULAR VOLUME 85 fl (80-97); MONOCYTES % (AUTO) 9.5 % (3-13); PLATELET COUNT 251 10^3/uL (150-450); RED CELL DISTRIBUTION WIDTH 15.6 % (11.5-14.0); SEGMENTED NEUTROPHILS % (AUTO) 56.4 % (42-78); TOTAL CELLS COUNTED % (AUTO) 100 %; WHITE BLOOD COUNT 6.8 10^3/uL (4.0-10.5)
[2018-12-08 19:26] LABS: APPEARANCE,URINE CLEAR; BILIRUBIN,URINE NEGATIVE (NEGATIVE); COLOR,URINE STRAW; GLUCOSE, URINE NEGATIVE (NEGATIVE); KETONES,URINE NEGATIVE (NEGATIVE); LEUKOCYTE ESTERASE,URINE LARGE (NEGATIVE); NITRITE,URINE NEGATIVE (NEGATIVE); PROTEIN,URINE NEGATIVE (NEGATIVE); UROBILINOGEN,URINE NEGATIVE mg/dL (<2.0)
[2018-12-08 19:28] LABS: URINE SPECIFIC GRAVITY 1.009
--- NOTE | 2018-12-08 19:30 | ER Document Report ---
Entered by TRAY VIERA SCRIBE 12/08/18 1838 Acting as scribe for:CIRO MOSS MD ED GI Bleed / Rectal Pain - General Chief Complaint: Bloody Stools Stated Complaint: GI BLEED Time Seen by Provider: 12/08/18 18:25 Primary Care Provider: CHERISE REGALADO MD [Primary Care Provider] - Follow up as needed KYE RANGEL MD [ACTIVE STAFF] - Follow up tomorrow Mode of Arrival: Ambulatory Information source: Patient Notes: Patient is an 83-year-old female that presents to the emergency department today with complaints of bloody stool. Patient was seen in the emergency room yesterday for bleeding, and found to have hemoglobin 7.1. She received 2 units of packed RBCs over about 8 hours in the emergency room and then was sent back t [facility] earlier today. Nursing staff at [place] report the patient has continued to have some bloody stools throughout the day. Patient states she feels generally weak. Dr. Rangel was consulted yesterday, he knew the patient well, and made arrangements for a follow-up appointment on Sunday. TRAVEL OUTSIDE OF THE [place] IN LAST 30 DAYS: No - Related Data Allergies/Adverse Reactions: promethazine HCl [From Phenergan] Allergy (Verified 12/07/18 14:57) Past Medical History - Social History Smoking Status: Unknown if Ever Smoked Family History: Reviewed & Not Pertinent, Hypertension Patient has suicidal ideation: No Patient has homicidal ideation: No - Past Medical History Cardiac Medical History: Reports: Hx Congestive Heart Failure, Hx Coronary Artery Disease, Hx Hypercholesterolemia, Hx Hypertension Denies: Hx Heart Attack Pulmonary Medical History: Reports: Hx COPD Denies: Hx Asthma, Hx Bronchitis, Hx Pneumonia Neurological Medical History: Reports: Hx Seizures. Denies: Hx Cerebrovascular Accident Renal/ Medical History: Denies: Hx Peritoneal Dialysis Malignancy Medical History: Reports: Hx Breast Cancer, Hx Lung Cancer GI Medical History: Reports: Hx Gastroesophageal Reflux Disease, Hx Hiatal Hernia, Hx Ulcer Musculoskeletal Medical History: Denies Hx Arthritis Psychiatric Medical History: Reports: Hx Depression Past Surgical History: Reports: Hx Abdominal Surgery, Hx Breast Surgery - Left mastectomy for breast cancer, Hx Cardiac Catheterization, Hx Cardiac Surgery, Hx Section, Hx Coronary Stent, Hx Gynecologic Surgery - , Hx Hysterectomy, Hx Mastectomy - Left, Hx Orthopedic Surgery - right hip replacement - Immunizations Hx Diphtheria, Pertussis, Tetanus Vaccination: Yes Hx Pneumococcal Vaccination: 03/26/14 Review of Systems - Review of Systems Constitutional: See HPI, Weakness Physical Exam - Vital signs Vitals: Resp Pulse Ox 20 96 12/08/18 18:09 12/08/18 18:09 - Notes Notes: Physical Exam: General: Alert, appears well. HEENT: Normocephalic. Atraumatic. PERRL. Extraocular movements intact. Oropharynx clear. Neck: Supple. Non-tender. Respiratory: No respiratory distress. Clear and equal breath sounds bilaterally. Cardiovascular: Regular rate and rhythm. Grade 3 systolic murmur. Abdominal: Normal Inspection. Non-tender. No distension. Normal Bowel Sounds. Back: No gross abnormalities. Extremities: Moves all four extremities. Upper extremities: Normal inspection. Normal ROM. Lower extremities: Normal inspection. No edema. Normal ROM. Neurological: Normal cognition. AAOx4. Normal speech. Psychological: Normal affect. Normal Mood. Skin: Warm. Dry. Pale. Course - Re-evaluation Re-evalutation: 12/08/18 19:54 Patient's evaluation today suggest urinary tract infection. She did have a urinary tract infection growing E. coli on the 11/23/2018 admission. She received Rocephin, Flagyl, and Cipro while in the hospital. She was discharged on 11/26/2018 with a 7-day course of Cipro. The patient's hemoglobin this evening is 10.0, she has not required diaper change due to excessive rectal bleeding during her stay in the emergency room this evening. - Vital Signs Vital signs: Temp Pulse Resp BP Pulse Ox 26 H 164/87 H 98 12/08/18 18:10 12/08/18 18:10 12/08/18 18:10 - Laboratory Result Diagrams: 12/08/18 18:50 12/08/18 18:50 Laboratory results interpreted by me: 12/08/18 12/08/18 12/08/18 18:50 18:50 19:03 RBC 3.50 L Hgb 10.0 L D Hct 29.6 L RDW 15.6 H Est GFR (MDRD) Non-Af 58 L Total Protein 5.4 L Albumin 2.6 L Ur Leukocyte Esterase LARGE H - Consults Dr. Rangel Time consulted: 19:35 Consulted provider: follow-up in office - Will see in the office tomorrow. Will have the office call the group home first thing in the morning to set up an appointment time. Discharge - Discharge Clinical Impression: Chronic GI bleeding UTI (urinary tract infection) Qualifiers: Urinary tract infection type: site unspecified Hematuria presence: without hematuria Qualified Code(s): N39.0 - Urinary tract infection, site not specified Condition: Stable Disposition: SNF-Other Additional Instructions: Your hemoglobin today was 10.0, yesterday it was 7.1 Your urine analysis indicated a urinary tract infection. I did speak with Dr. Rangel, and he requested that you come to the office [facility] for him to review your case and try to come up with a more definitive management program. Take the antibiotics as prescribed for your urinary tract infection. The urine will be cultured so if there are any surprises, the group home can be contacted and change antibiotic. Return to the emergency room if the rectal bleeding becomes excessive. RETURN TO THE EMERGENCY ROOM IF ANY NEW OR WORSENING SYMPTOMS. Prescriptions: Cephalexin Monohydrate [Keflex 500 mg Capsule] 500 mg PO TID #15 capsule Referrals: CHERISE REGALADO MD [Primary Care Provider] - Follow up as needed KYE RANGEL MD [ACTIVE STAFF] - Follow up tomorrow Scribe Attestation: 12/08/18 18:45 I personally performed the services described in the documentation, reviewed and edited the documentation which was dictated to the scribe in my presence, and it accurately records my words and actions. I personally performed the services described in the documentation, reviewed and edited the documentation which was dictated to the scribe in my presence, and it accurately records my words and actions.
[2018-12-08 19:32] LABS: ALBUMIN 2.6 g/dL (3.5-5.0); ALKALINE PHOSPHATASE 101 U/L (38-126); ASPARTATE AMINO TRANSFERASE 24 U/L (14-36); BILIRUBIN,DIRECT 0.2 mg/dL (0.0-0.4); BILIRUBIN,TOTAL 0.2 mg/dL (0.2-1.3); BLOOD UREA NITROGEN 20 mg/dL (7-20); CALCIUM 8.8 mg/dL (8.4-10.2); CARBON DIOXIDE 27 mmol/L (22-30); GLUCOSE 95 mg/dL (75-110); POTASSIUM 4.7 mmol/L (3.6-5.0); TOTAL PROTEIN 5.4 g/dL (6.3-8.2)
[2018-12-08 19:45] LABS: ANION GAP 5 (5-19); CHLORIDE 105 mmol/L (98-107)
[2018-12-08] MEDS ORDERED: CEPHALEXIN 500 MG CAPSULE PO ONE (19:55)
[2018-12-08 20:04] VITALS: BP 171/80
== END 2018-12-08 20:55 ==
LOC: ER 18:02
DX: K92.2 Gastrointestinal hemorrhage, unspecified (principal); N39.0 Urinary tract infection, site not specified; R19.5 Other fecal abnormalities; R53.1 Weakness
CPT/HCPCS: 86900; 86901; 36415; 87086; 86850; 85025; 80053; 81001; A9270

== ENCOUNTER 2018-12-12 08:57 | Day surgery (SDC) | payer MEDICARE, OTHER ==
[~2018-12-12 08:57] MED LIST: AMPICILLIN SODIUM/SULBACTAM NA 3 GM in NORMAL SALINE 100 ML IV PRN
[2018-12-12 10:45] LABS: HEMOGLOBIN 9.3 g/dL (12.0-15.5); MEAN CORPUSCULAR HEMOGLOBIN 28.4 pg (27.0-33.4); MEAN CORPUSCULAR VOLUME 86 fl (80-97); PLATELET COUNT 280 10^3/uL (150-450); RED BLOOD COUNT 3.26 10^6/uL (3.72-5.28); RED CELL DISTRIBUTION WIDTH 15.2 % (11.5-14.0); WHITE BLOOD COUNT 6.8 10^3/uL (4.0-10.5)
[2018-12-12 10:51] LABS: INTERNATIONAL RATION (INR) 1.16; PROTHROMBIN TIME 14.9 SEC (11.4-15.4)
[2018-12-12 10:52] LABS: PARTIAL THROMBOPLASTIN TIME 31.5 SEC (23.5-35.8)
[2018-12-12] MEDS ORDERED: PROPOFOL INJ 200 MG/20 ML VIAL IV ONE (10:53)
[2018-12-12] MEDS ORDERED: FENTANYL CITRATE INJ/PF 250 MCG/5 ML AMPULE ONE (10:53)
[2018-12-12] MEDS ORDERED: MIDAZOLAM 2 MG/2 ML INJ ONE (10:54)
[2018-12-12] MEDS ORDERED: EPHEDRINE SULFATE INJ 50 MG/1 ML AMPULE ONE (10:58)
[2018-12-12] MEDS ORDERED: BUPIVACAINE HCL 0.25 % INJ/PF (2.5 MG/1 ML) 30 ML VIAL ONE (11:04)
[2018-12-12 11:18] LABS: ANION GAP 9 (5-19); BLOOD UREA NITROGEN 15 mg/dL (7-20); CALCIUM 9.2 mg/dL (8.4-10.2); CARBON DIOXIDE 25 mmol/L (22-30); CHLORIDE 107 mmol/L (98-107); GLUCOSE 91 mg/dL (75-110); POTASSIUM 4.7 mmol/L (3.6-5.0)
--- NOTE | 2018-12-12 12:57 | Discharge Summary ---
Discharge Summary (SDC) - Discharge Final Diagnosis: stercoral ulcer Date of Surgery: 12/12/18 Discharge Date: 12/12/18 Condition: Good Treatment or Instructions: FOLLOW UP CARE: 1) Please take Colace 100mg twice daily. Take Metamucil, one teaspoon daily. Drink plenty of fluids. 2) Follow up at [facility] in 7-10 days. 3) Call clinic sooner with questions/concerns. Referrals: MARISSA PHAM MD [Primary Care Provider] - Discharge Diet: As Tolerated Discharge Activity: Activity As Tolerated Report the Following to Your Physician Immediately: Vomiting, Increase in Pain, Fever over 101 Degrees, Unusual Bleeding, Redness
--- NOTE | 2018-12-12 13:15 | Operative Report ---
Operative Report DATE OF SURGERY: 12/12/18 PREOPERATIVE DIAGNOSIS: 1. Gastrointestinal bleeding. 2. Blood loss anemia. 3. Sigmoid colon ulcers POSTOPERATIVE DIAGNOSIS: 1. Gastrointestinal bleeding. 2. Mild esophagitis. 3. Gastritis. 4. Rectal ulcers consistent with stercoral ulcers OPERATION: 1. Total colonoscopy to cecum with photodocumentation. 2. Colonoscopic biopsy of the lower rectal mucosa. 3. Esophagogastroduodenoscopy. 4. Mucosal biopsy of the mid esophagus. 5. Mucosal biopsy of gastric body SURGEON: KYE RANGEL ANESTHESIA: GA TISSUE REMOVED OR ALTERED: Mucosal biopsies COMPLICATIONS: None INTRAOPERATIVE FINDINGS: See below PROCEDURE: Patient was taken to the preop holding area to the main operating room and general anesthesia was induced. Carlton catheter was inserted. Patient was placed in the supine position and preparations were made for colonoscopy. Surgical plan surgical timeout were conducted. A rectal exam was performed. There was some liquid stool but no mass palpable. The flexible adult colonoscope was advanced to the anal rectal canal all the way to the cecum. This was an excellent study on a very well-prepped bowel. There is only residual amount of green particulate stool. Visualization of the cecum was confirmed by transillumination anterior abdominal wall, and visualization ileocecal valve. The scope was withdrawn to light the colon checked the mucosa carefully. There was no evidence of tumor, stricture, bleeding, polyp. Sigmoid colon was carefully scope. There was no pathology in the sigmoid colon. The scope was brought through the anal rectal canal. At approximately 7 8 cm in the anal verge, in the lower rectum were several areas of healing ulceration with fibrin. Photos were taken. The scope was retroflexed and additional photos were taken. There was no evidence of mucosal ischemia, polyp or active bleeding. We did take a random biopsy of the rectal mucosa. Dr. Benson Stacy, general surgeon, made a intraoperative visit and confirmed our suspicion that the patient was suffering from stercoral ulcers of the lower rectum. There is no indication for further intervention as she was not bleeding. Plans for sigmoid colectomy were canceled. The scope was withdrawn to the patient's anus. For completeness sake, we performed upper endoscopy. This is performed by Dr. Rangel. The flexible upper endoscope was advanced to the oropharynx, down the esophagus through the stomach into the first and second portion of the duodenum. There was no evidence of tumor stricture bleeding or polyp. The ampulla was visualized and photographed. The stomach was significant for mild diffuse gastritis and a random biopsy was chosen and sent for TONY and histologic analysis. The GE junction was at 38 cm. The scope was brought back to the GE junction uneventfully. There was a small hiatal hernia. In the midesophagus there was some erythematous and some exfoliation mucosa. This could have been related to nasogastric tube trauma. A random biopsy of the lower esophagus was performed. This was done with a cold forceps device. Again bleeding was minimal. There is no evidence of active gastric or esophageal bleeding to explain patient's anemia. Scope was doing with the patient's oropharynx. She tolerated the entire procedure well. There were no complications.
[2018-12-12] MEDS ORDERED: MEPERIDINE HCL/PF INJ 25 MG/1 ML DISP.SYRIN IV PRN (13:19)
[2018-12-12] MEDS ORDERED: DIPHENHYDRAMINE HCL 50 MG/ML VIAL IV PRN (13:19)
[2018-12-12] MEDS ORDERED: FENTANYL CITRATE INJ/PF 100 MCG/2 ML AMPUL IV PRN ×3 (13:19)
[2018-12-12] MEDS ORDERED: OXYCODONE-ACETAMINOPHEN 5-325 MG TABLET PO PRN ×2 (13:19)
--- NOTE | 2018-12-12 13:36 | EKG REPORT ---
SEVERITY:- ABNORMAL ECG - SINUS RHYTHM RBBB AND LAFB LEFT VENTRICULAR HYPERTROPHY : Confirmed by: Scotty Augustin MD 12-Dec-2018 13:36:12
[2018-12-12 16:36] VITALS: BP 170/86
[2018-12-12] MEDS ORDERED: ROCURONIUM BROMIDE INJ 50 MG/5 ML VIAL IV ONE (20:37)
== END 2018-12-12 14:45 | disposition home health service (06) ==
LOC: UNDOADMIN 08:57 → INOR 08:57 → OROUT 08:57 → EDSTATUS 11:00 → OROUT 14:45
PROVIDERS: ATTEND Internal Medicine
DX: K62.6 Ulcer of anus and rectum (principal); K31.9 Disease of stomach and duodenum, unspecified; K92.2 Gastrointestinal hemorrhage, unspecified; K20.9 Esophagitis, unspecified; Z85.3 Personal history of malignant neoplasm of breast; R01.1 Cardiac murmur, unspecified; I11.0 Hypertensive heart disease with heart failure; I50.9 Heart failure, unspecified; R62.7 Adult failure to thrive; Z68.22 Body mass index [BMI] 22.0-22.9, adult; Z99.3 Dependence on wheelchair; Z79.899 Other long term (current) drug therapy
CPT/HCPCS: 43239; 86900; 86901; 36415; 86870; 86850; 85027; 85610; 85730; 80048; 87070; 88342 ×2; 88305 ×2; 93005; 93010; J2250; J3490; J3010; J0295; J7050; J2704

== ENCOUNTER 2019-01-14 15:20 | Inpatient (IN) | payer MEDICARE, OTHER ==
[2019-01-14 16:04] LABS: ABSOLUTE EOSINOPHILS # (AUTO) 0.1 10^3/uL (0.0-0.6); ABSOLUTE LYMPHOCYTES (AUTO) 1.4 10^3/uL (0.5-4.7); ABSOLUTE MONOCYTES (AUTO) 0.4 10^3/uL (0.1-1.4); ABSOLUTE NEUT (AUTO) 2.2 10^3/uL (1.7-8.2); BASOPHILS % (AUTO) 0.6 % (0-2); HEMATOCRIT 21.8 % (36.0-47.0); LYMPHOCYTES % (AUTO) 33.8 % (13-45); MEAN CORPUSCULAR HGB CONC 31.2 g/dL (32.0-36.0); MEAN CORPUSCULAR VOLUME 87 fl (80-97); MONOCYTES % (AUTO) 8.8 % (3-13); PLATELET COUNT 296 10^3/uL (150-450); RED BLOOD COUNT 2.51 10^6/uL (3.72-5.28); RED CELL DISTRIBUTION WIDTH 18.3 % (11.5-14.0); SEGMENTED NEUTROPHILS % (AUTO) 54.8 % (42-78); TOTAL CELLS COUNTED % (AUTO) 100 %; WHITE BLOOD COUNT 4.1 10^3/uL (4.0-10.5)
[2019-01-14 16:06] LABS: HEMOGLOBIN 6.8 g/dL (12.0-15.5)
[2019-01-14 16:19] LABS: ALBUMIN 2.8 g/dL (3.5-5.0); ALKALINE PHOSPHATASE 76 U/L (38-126); ANION GAP 6 (5-19); ASPARTATE AMINO TRANSFERASE 14 U/L (14-36); BLOOD UREA NITROGEN 22 mg/dL (7-20); CALCIUM 8.8 mg/dL (8.4-10.2); CARBON DIOXIDE 27 mmol/L (22-30); CHLORIDE 105 mmol/L (98-107); GLUCOSE 104 mg/dL (75-110); POTASSIUM 4.6 mmol/L (3.6-5.0); TOTAL PROTEIN 5.6 g/dL (6.3-8.2)
[2019-01-14 16:37] LABS: BILIRUBIN,TOTAL < 0.1 mg/dL (0.2-1.3)
[2019-01-14] MEDS ORDERED: NORMAL SALINE 250 ML IV PRN ×3 (17:16→20:52)
--- NOTE | 2019-01-14 17:33 | ER Document Report ---
ED General - General Chief Complaint: Abnormal Lab Results Stated Complaint: BLOOD TRANSFUSION Time Seen by Provider: 01/14/19 16:35 Primary Care Provider: MARISSA PHAM MD [Primary Care Provider] - Follow up as needed Information source: Patient, Relative TRAVEL OUTSIDE OF THE [place] IN LAST 30 DAYS: No - HPI Notes: Patient presents with weakness from [facility]. She states she has been having diarrhea for about 1 week. She denies any abdominal pain or rectal pain. She states that she does have a history of rectal bleeding in the past and has required transfusion. She states that mainly she has just been feeling weak over the last several days. The symptoms are worse with exertion and better with rest. They have been moderate to severe. There is no known radiation of the symptoms. The symptoms have been intermittent. She has had no vomiting or other sources of bleeding. - Related Data Allergies/Adverse Reactions: promethazine HCl [From Phenergan] Allergy (Verified 12/07/18 14:57) Past Medical History - General Information source: Patient, Relative - Social History Smoking Status: Never Smoker Frequency of alcohol use: None Drug Abuse: None Family History: Reviewed & Not Pertinent, Hypertension Patient has suicidal ideation: No Patient has homicidal ideation: No - Past Medical History Cardiac Medical History: Reports: Hx Congestive Heart Failure, Hx Coronary Artery Disease, Hx Heart Attack - unsure, Hx Hypercholesterolemia, Hx Hypertension, Hx Heart Murmur Denies: Hx Atrial Fibrillation, Hx Peripheral Vascular Disease, Hx Pulmonary Embolism Pulmonary Medical History: Reports: Hx COPD, Hx Sleep Apnea Denies: Hx Asthma, Hx Bronchitis, Hx Pneumonia, Hx Respiratory Failure, Hx Tuberculosis Neurological Medical History: Denies: Hx Cerebrovascular Accident, Hx Seizures, Hx Parkinson's Disease Endocrine Medical History: Denies: Hx Graves' Disease, Hx Hyperthyroidism, Hx Hypothyroidism Renal/ Medical History: Denies: Hx End Stage Renal Disease, Hx Kidney Stones, Hx Ovarian Cysts, Hx Peritoneal Dialysis, Hx Pelvic Inflammatory Disease Malignancy Medical History: Reports: Hx Breast Cancer - left breast, Hx Lung Cancer - right lung nodules. Denies: Hx Cervical Cancer, Hx Leukemia, Hx Ovarian Cancer GI Medical History: Reports: Hx Gastroesophageal Reflux Disease, Hx Hiatal Hernia, Hx Ulcer. Denies: Hx Crohn's Disease, Hx Irritable Bowel, Hx Liver Failure, Hx Pancreatitis Musculoskeletal Medical History: Reports Hx Arthritis, Denies Hx Fibromyalgia, Denies Hx Multiple Sclerosis, Denies Hx Muscular Dystrophy, Denies Hx Systemic Lupus Erythematosus Psychiatric Medical History: Denies: Hx Bipolar Disorder, Hx Dementia, Hx Depression, Hx Post Traumatic Stress Disorder, Hx Schizophrenia Traumatic Medical History: Denies: Hx Fractures Infectious Medical History: Denies: Hx HIV Past Surgical History: Reports: Hx Abdominal Surgery, Hx Breast Surgery - Left mastectomy for breast cancer, Hx Cardiac Catheterization, Hx Cardiac Surgery, Hx Coronary Artery Bypass Graft - stent, Hx Coronary Stent, Hx Gynecologic Surgery - , Hx Hysterectomy, Hx Mastectomy - Left breast, Hx Orthopedic Surgery - right hip replacement. Denies: Hx Appendectomy, Hx Bowel Surgery, Hx Section, Hx Cholecystectomy, Hx Colostomy, Hx Gastric Bypass Surgery, Hx Herniorrhaphy, Hx Pacemaker, Hx Tonsillectomy, Hx Tubal Ligation - Immunizations Hx Diphtheria, Pertussis, Tetanus Vaccination: Yes Hx Pneumococcal Vaccination: 12/25/17 Review of Systems - Review of Systems Constitutional: denies: Chills, Fever Cardiovascular: denies: Chest pain, Palpitations Respiratory: denies: Cough, Short of breath Gastrointestinal: Diarrhea. denies: Vomiting -: Yes All other systems reviewed and negative Physical Exam - Vital signs Vitals: Resp 21 H 01/14/19 15:46 Interpretation: Normal - General General appearance: Appears well, Alert In distress: None - HEENT Head: Normocephalic, Atraumatic Eyes: Normal Pupils: PERRL - Respiratory Respiratory status: No respiratory distress Chest status: Nontender Breath sounds: Normal Chest palpation: Normal - Cardiovascular Rhythm: Regular Heart sounds: Normal auscultation Murmur: No - Abdominal Inspection: Normal Distension: No distension Bowel sounds: Normal Tenderness: Nontender Organomegaly: No organomegaly - Rectal Tenderness: No Stool: Heme positive, Black, Bloody Hemorrhoids: None - Back Back: Normal, Nontender - Extremities General upper extremity: Normal inspection, Nontender, Normal color, Normal ROM, Normal temperature General lower extremity: Normal inspection, Nontender, Normal color, Normal ROM, Normal temperature, Normal weight bearing. No: Luca's sign - Neurological Neuro grossly intact: Yes Cognition: Normal Orientation: AAOx4 [place] Coma Scale Eye Opening: Spontaneous [place] Coma Scale Verbal: Oriented Félix Coma Scale Motor: Obeys Commands Félix Coma Scale Total: 15 Speech: Normal Motor strength normal: LUE, RUE, LLE, RLE Sensory: Normal - Psychological Associated symptoms: Normal affect, Normal mood - Skin Skin Temperature: Warm Skin Moisture: Dry Skin Color: Pale Course - Re-evaluation Re-evalutation: 01/14/19 17:31 Patient sent over for weakness. Hemoglobin is 6.6. She does have bloody black stool. I discussed the case with the surgeon, Dr. Bland. I also discussed the case with the patient's primary doctor, Dr. Pham. She will be admitted to her primary doctor who will consult with surgery. She has been consented for transfusion and this is been ordered. - Vital Signs Vital signs: Temp Pulse Resp BP Pulse Ox 97.8 F 21 H 153/59 H 98 01/14/19 16:02 01/14/19 16:01 01/14/19 16:01 01/14/19 16:01 - Laboratory Result Diagrams: 01/14/19 15:51 01/14/19 15:51 Laboratory results interpreted by me: 01/14/19 01/14/19 01/14/19 15:51 15:51 16:26 RBC 2.51 L Hgb 6.8 L Hct 21.8 L MCHC 31.2 L RDW 18.3 H BUN 22 H Est GFR (MDRD) Non-Af 56 L Total Bilirubin < 0.1 L Total Protein 5.6 L Albumin 2.8 L Crossmatch See Detail Discharge - Discharge Clinical Impression: Lower GI bleeding Anemia Qualifiers: Anemia type: iron deficiency Iron deficiency anemia type: chronic blood loss Qualified Code(s): D50.0 - Iron deficiency anemia secondary to blood loss (chronic) Condition: Serious Disposition: ADMITTED INPATIENT Admitting Provider: Belia Unit Admitted: Telemetry Referrals: MARISSA PHAM MD [Primary Care Provider] - Follow up as needed
--- NOTE | 2019-01-14 20:20 | PDOC CONSULTATION ---
Consultation Consult Date: 01/14/19 Provider Consulted: KELLY WILDE Consult reason:: Colonoscopy for lower GI bleed History of Present Illness Admission Date/PCP: 01/14/19 17:46 MARISSA PHAM History of Present Illness: BERNABE DORMAN is a 83 year old female who had a history of previous rectal bleeding and needed clipping of sigmoid ulceration wide and in early October of this year. She was admitted to on slow again for rectal bleed and Dr. Rangel apparently seen her in consult then. Spoke to the daughter on the phone who said that Dr. Rangel did not colonoscopy in and told her that the bleeding appears to be outside of the colonic mucosa and with soft diet and MiraLAX will help prevent further bleeding. Patient apparently has been having diarrhea at the senior care and for the past few days and developed some rectal bleeding and transferred to the ED where a hemoglobin of 6.8 was noted. He is she is then admitted for IV blood transfusion and new surgeries been consulted for possible colonoscopy. I spoke to the patient was asymptomatic as far as the abdomen is concerned and would like to hold off doing any bowel prep which prompted me to call her daughter who agreed with the patient. Past Medical History Cardiac Medical History: Reports: Congestive Heart Failure, Coronary Artery Disease, Myocardial Infarction - unsure, Hyperlipidema, Hypertension, Heart Murmur Denies: Atrial Fibrillation, Peripheral Vascular Disease, Pulmonary Embolism Pulmonary Medical History: Reports: Chronic Obstructive Pulmonary Disease (COPD), Sleep Apnea Denies: Asthma, Bronchitis, Pneumonia, Respiratory Failure, Tuberculosis Neurological Medical History: Denies: Seizures Endocrine Medical History: Denies: Hyperthyroidism, Hypothyroidism Renal/ Medical History: Denies: End Stage Renal Disease Malignancy Medical History: Reports: Breast Cancer - left breast, Lung Cancer - right lung nodules Denies: Cervical Cancer, Leukemia, Ovarian Cancer GI Medical History: Reports: Gastroesophageal Reflux Disease, Hiatal Hernia Denies: Crohn's Disease Musculoskeltal Medical History: Reports: Arthritis Denies: Fibromyalgia Psychiatric Medical History: Denies: Bipolar Disorder, Dementia, Depression, Post Traumatic Stress Disorder Hematology: Reports: Anemia Denies: Hemophilia, Sickle Cell Disease Infectious Medical History: Denies: HIV Past Surgical History Past Surgical History: Reports: Cardiac Catheterization, Coronary Artery Bypass Graft - stent, Coronary Stent, Hysterectomy, Mastectomy - Left breast, Orthopedic Surgery - right hip replacement Denies: Amputation, Appendectomy, Section, Cholecystectomy, Colostomy, Gastric Bypass Surgery, Herniorrhaphy, Pacemaker, Tonsillectomy, Tubal Ligation Social History Smoking Status: Never Smoker Frequency of Alcohol Use: None Hx Recreational Drug Use: No Drugs: None Hx Prescription Drug Abuse: No - Advance Directive Resuscitation Status: Full Code Family History Family History: Reviewed & Not Pertinent, Hypertension Parental Family History Reviewed: Yes Children Family History Reviewed: No Sibling(s) Family History Reviewed.: No Medication/Allergy Home Medications: Amlodipine Besylate [Norvasc 10 mg Tablet] 10 mg PO QAM 11/24/18 Carbamazepine [Tegretol 200 mg Tablet] 400 mg PO BID 11/24/18 Carvedilol [Coreg 25 mg Tablet] 25 mg PO Q12 11/24/18 Docusate Sodium [Colace 100 mg Capsule] 100 mg PO BID 11/24/18 Donepezil HCl [Aricept 5 mg Tablet] 5 mg PO QHS 11/24/18 Ferrous Sulfate [Feosol 325 mg Tablet] 325 mg PO DAILY 11/24/18 Oxycodone HCl [Oxy-Ir 5 mg Tablet] 5 mg PO Q8HP PRN 11/24/18 Primidone [Mysoline] 100 mg PO TID 11/24/18 Ranitidine HCl [Zantac] 300 mg PO WSUPPER 11/24/18 Rosuvastatin Calcium [Crestor 10 mg Tablet] 10 mg PO QHS 11/24/18 Sertraline HCl [Zoloft 50 mg Tablet] 50 mg PO QHS 11/24/18 Lisinopril [Prinivil 10 mg Tablet] 10 mg PO DAILY #30 tablet 11/26/18 Sucralfate [Carafate 1 gm Tablet] 1 tab PO QID 12/12/18 Menthol/Zinc Oxide [Calmoseptine Ointment] 1 applic TP DAILY 01/14/19 Polyethylene Glycol 3350 [Miralax Powder 17 gm/Packet] 1 packet PO DAILY 01/14/19 Allergies/Adverse Reactions: promethazine HCl [From Phenergan] Allergy (Verified 12/07/18 14:57) Review of Systems Constitutional: PRESENT: as per HPI, other - No chills or fever Gastrointestinal: PRESENT: other - No abdominal pains Bloody diarrhea Physical Exam Vital Signs: Temp Pulse Resp BP Pulse Ox 98.5 F 79 22 H 171/84 H 99 01/14/19 19:01 01/14/19 18:20 01/14/19 18:20 01/14/19 19:22 01/14/19 18:20 Intake & Output 01/13/19 01/14/19 01/15/19 06:59 06:59 06:59 Intake Total 0 Balance 0 Weight 78.2 kg General appearance: PRESENT: cooperative Eye exam: PRESENT: conjunctiva pale Neck exam: PRESENT: full ROM Respiratory exam: PRESENT: clear to auscultation ulysses Cardiovascular exam: PRESENT: RRR Pulses: PRESENT: normal radial pulses Vascular exam: PRESENT: normal capillary refill GI/Abdominal exam: PRESENT: soft - Nontender Rectal exam: PRESENT: deferred Neurological exam: PRESENT: alert, oriented to person, oriented to place, oriented to time, oriented to situation Psychiatric exam: PRESENT: appropriate affect Skin exam: PRESENT: pallor, warm Results Laboratory Results: 01/14/19 15:51 01/14/19 15:51 01/14/19 01/14/19 01/14/19 15:51 15:51 16:26 WBC 4.1 RBC 2.51 L Hgb 6.8 L Hct 21.8 L MCV 87 MCH 27.0 MCHC 31.2 L RDW 18.3 H Plt Count 296 Seg Neutrophils % 54.8 Sodium 138.3 Potassium 4.6 Chloride 105 Carbon Dioxide 27 Anion Gap 6 BUN 22 H Creatinine 0.96 Est GFR ( Amer) > 60 Glucose 104 Calcium 8.8 Total Bilirubin < 0.1 L AST 14 Alkaline Phosphatase 76 Total Protein 5.6 L Albumin 2.8 L Blood Type O NEGATIVE Antibody Screen POSITIVE 01/14/19 15:51 Troponin I 0.014 Assessment & Plan - Diagnosis (1) Lower GI bleed Is this a current diagnosis for this admission?: Yes - Time Time Spent: 30 to 50 Minutes - Inpatient Certification Medical Necessity: Need Close Monitoring Due to Risk of Patient Decompensation, Need For IV Fluids - Plan Summary Plan Summary: 83-year-old female with history of lower GI bleed. Patient is a DNR. Patient and daughter would like to hold off giving any bowel prep prior to any colonoscopy. They would like to continue with soft diet and MiraLAX. Obviously since patient has diarrhea the MiraLAX should be stopped at this time. Since colonoscopy will require a bowel prep we can hold off the colonoscopy for now until the patient and daughter agrees to have bowel prep. He also would like to keep the DNR status of the patient. Surgery will be available to do colonoscopy when they decide to have it done but patient needed to be on a bowel prep.
[2019-01-14] MEDS ORDERED: OXYCODONE HCL IR 5 MG TABLET PO PRN (20:53)
--- NOTE | 2019-01-14 21:22 | PDOC H&P ---
History of Present Illness Admission Date/PCP: 01/14/19 17:46 MARISSA VERO Patient complains of: Generalized weakness; Abnormal Laboratory finding History of Present Illness: BERNABE DORMAN is a 83 year old female known to my practice currently a resident at [facility] who was transferred to the ED due continue complain of generalized weakness and finding of worsening hemoglobin on her most recent CBC. Patient reported tat she had episodes of diarrhea that lasted about 2 weeks with tarry stool. She was on Miralax and Colace following colonoscopy that was completed by Dr Rangel due to episode of lower GI bleed. She reported that her colonoscopy was normal except for area of rectal region with ulcer and possible site of her lower GI bleed. She reported subsequent normal recuperation until about 2 weeks ago when she stared having diarrhea. She denied any associated chest pain or difficulty with breathing., No nausea, vomiting or abdominal pain. There was reduced P.O intake related to dislike of served food. She denied any fever or chills. She denied any significant genitourinary symptoms to suggest ongoing infection. Her initial assessment in the ED revealed significant anemia with hemoglobin at 6.8 g/dL down from 10.0 g/dL on 12/08/2018. She was advised hospitalization for further evaluation and management. She will be seen in consultation by Dr. Bland, on-call surgicalist, for evaluation of any interventional surgical need at this time. Her morbidities are as listed below. Past Medical History Cardiac Medical History: Reports: Congestive Heart Failure, Coronary Artery Disease, Myocardial Infarction - unsure, Hyperlipidema, Hypertension, Heart Murmur Denies: Atrial Fibrillation, Peripheral Vascular Disease, Pulmonary Embolism Pulmonary Medical History: Reports: Chronic Obstructive Pulmonary Disease (COPD), Sleep Apnea Denies: Asthma, Bronchitis, Pneumonia, Respiratory Failure, Tuberculosis Neurological Medical History: Denies: Seizures Endocrine Medical History: Denies: Hyperthyroidism, Hypothyroidism Renal/ Medical History: Denies: End Stage Renal Disease Malignancy Medical History: Reports: Breast Cancer - left breast, Lung Cancer - right lung nodules Denies: Cervical Cancer, Leukemia, Ovarian Cancer GI Medical History: Reports: Gastroesophageal Reflux Disease, Hiatal Hernia Denies: Crohn's Disease Musculoskeltal Medical History: Reports: Arthritis Denies: Fibromyalgia Psychiatric Medical History: Denies: Bipolar Disorder, Dementia, Depression, Post Traumatic Stress Disorder Hematology: Reports: Anemia Denies: Hemophilia, Sickle Cell Disease Infectious Medical History: Denies: HIV Past Surgical History Past Surgical History: Reports: Cardiac Catheterization, Coronary Artery Bypass Graft - stent, Coronary Stent, Hysterectomy, Mastectomy - Left breast, Or thopedic Surgery - right hip replacement Denies: Amputation, Appendectomy, Section, Cholecystectomy, Colostomy, Gastric Bypass Surgery, Herniorrhaphy, Pacemaker, Tonsillectomy, Tubal Ligation Social History Smoking Status: Never Smoker Electronic Cigarette use?: No Frequency of Alcohol Use: None Hx Recreational Drug Use: No Drugs: None Hx Prescription Drug Abuse: No - Advance Directive Resuscitation Status: Full Code Family History Family History: Reviewed & Not Pertinent, Hypertension Parental Family History Reviewed: Yes Children Family History Reviewed: Yes Sibling(s) Family History Reviewed.: Yes Medication/Allergy Home Medications: Amlodipine Besylate [Norvasc 10 mg Tablet] 10 mg PO QAM 11/24/18 Carbamazepine [Tegretol 200 mg Tablet] 400 mg PO BID 11/24/18 Carvedilol [Coreg 25 mg Tablet] 25 mg PO Q12 11/24/18 Docusate Sodium [Colace 100 mg Capsule] 100 mg PO BID 11/24/18 Donepezil HCl [Aricept 5 mg Tablet] 5 mg PO QHS 11/24/18 Ferrous Sulfate [Feosol 325 mg Tablet] 325 mg PO DAILY 11/24/18 Oxycodone HCl [Oxy-Ir 5 mg Tablet] 5 mg PO Q8HP PRN 11/24/18 Primidone [Mysoline] 100 mg PO TID 11/24/18 Ranitidine HCl [Zantac] 300 mg PO WSUPPER 11/24/18 Rosuvastatin Calcium [Crestor 10 mg Tablet] 10 mg PO QHS 11/24/18 Sertraline HCl [Zoloft 50 mg Tablet] 50 mg PO QHS 11/24/18 Lisinopril [Prinivil 10 mg Tablet] 10 mg PO DAILY #30 tablet 11/26/18 Sucralfate [Carafate 1 gm Tablet] 1 tab PO QID 12/12/18 Menthol/Zinc Oxide [Calmoseptine Ointment] 1 applic TP DAILY 01/14/19 Polyethylene Glycol 3350 [Miralax Powder 17 gm/Packet] 1 packet PO DAILY 01/14/19 Allergies/Adverse Reactions: promethazine HCl [From Phenergan] Allergy (Verified 12/07/18 14:57) Review of Systems Constitutional: PRESENT: anorexia, fatigue, weakness Eyes: ABSENT: visual disturbances Ears: ABSENT: hearing changes Nose, Mouth, and Throat: ABSENT: as per HPI, headache(s), mouth pain, sore throat, vertigo, other Cardiovascular: ABSENT: chest pain, dyspnea on exertion, edema, orthropnea, palpitations Respiratory: ABSENT: cough, hemoptysis Gastrointestinal: PRESENT: diarrhea, melena. ABSENT: abdominal pain, constipation, hematemesis, hematochezia, nausea, vomiting Genitourinary: ABSENT: dysuria, hematuria Musculoskeletal: PRESENT: deformity - related to her multiple joints involvement with arthritis Integumentary: ABSENT: rash, wounds Neurological: ABSENT: abnormal gait, abnormal speech, confusion, dizziness, focal weakness, syncope Psychiatric: PRESENT: depression - diue to her declining health since incident of right hip fracture several months ago Endocrine: ABSENT: cold intolerance, heat intolerance, polydipsia, polyuria Hematologic/Lymphatic: ABSENT: easy bleeding, easy bruising, lymphadenopathy Allergic/Immunologic: ABSENT: seasonal rhinorrhea Physical Exam Vital Signs: Temp Pulse Resp BP Pulse Ox 98.4 F 81 18 155/65 H 95 01/14/19 19:55 01/14/19 19:55 01/14/19 19:55 01/14/19 19:55 01/14/19 19:55 Intake & Output 01/13/19 01/14/19 01/15/19 06:59 06:59 06:59 Intake Total 0 Balance 0 Weight 78.2 kg General appearance: PRESENT: no acute distress, obese Head exam: PRESENT: atraumatic, normocephalic Eye exam: PRESENT: conjunctiva pale, PERRLA. ABSENT: scleral icterus Ear exam: PRESENT: normal external ear exam Mouth exam: PRESENT: moist Respiratory exam: PRESENT: clear to auscultation ulysses Cardiovascular exam: PRESENT: RRR, systolic murmur - grade 4/6 LLSB, apical radiation. ABSENT: diastolic murmur, rubs Vascular exam: PRESENT: pallor GI/Abdominal exam: PRESENT: normal bowel sounds, soft. ABSENT: distended, guarding, mass, organolmegaly, rebound, tenderness Rectal exam: PRESENT: deferred - as per reviewed ED and surgcal input documentation Extremities exam: ABSENT: pedal edema Musculoskeletal exam: PRESENT: deformity - multiple joints arthritis changes Neurological exam: PRESENT: alert, awake, oriented to person, oriented to place, oriented to time, oriented to situation, CN II-XII grossly intact. ABSENT: motor sensory deficit Psychiatric exam: PRESENT: depressed - easily cry during my bedside evaluation Skin exam: PRESENT: dry, intact, warm. ABSENT: cyanosis, rash Results Laboratory Results: 01/14/19 15:51 01/14/19 15:51 01/14/19 01/14/19 01/14/19 15:51 15:51 16:26 WBC 4.1 RBC 2.51 L Hgb 6.8 L Hct 21.8 L MCV 87 MCH 27.0 MCHC 31.2 L RDW 18.3 H Plt Count 296 Seg Neutrophils % 54.8 Sodium 138.3 Potassium 4.6 Chloride 105 Carbon Dioxide 27 Anion Gap 6 BUN 22 H Creatinine 0.96 Est GFR ( Amer) > 60 Glucose 104 Calcium 8.8 Total Bilirubin < 0.1 L AST 14 Alkaline Phosphatase 76 Total Protein 5.6 L Albumin 2.8 L Blood Type O NEGATIVE Antibody Screen POSITIVE 01/14/19 15:51 Troponin I 0.014 Assessment & Plan - Diagnosis (1) Anemia due to chronic blood loss Is this a current diagnosis for this admission?: Yes Plan: See admitting attending physician orders for details about care plan. (2) Lower GI bleed Is this a current diagnosis for this admission?: Yes Plan: See admitting attending physician orders for details about care plan. (3) Essential hypertension Is this a current diagnosis for this admission?: Yes Plan: See admitting attending physician orders for details about care plan. (4) CAD (coronary artery disease) Qualifiers: Coronary Disease-Associated Artery/Lesion type: [place] artery [place] vs. transplanted heart: [place] heart Associated angina: with unstable angina Qualified Code(s): I25.110 - Atherosclerotic heart disease of [place] coronary artery with unstable angina pectoris Is this a current diagnosis for this admission?: Yes Plan: See admitting attending physician orders for details about care plan. (5) Chronic diastolic CHF (congestive heart failure) Is this a current diagnosis for this admission?: Yes Plan: See admitting attending physician orders for details about care plan. (6) COPD (chronic obstructive pulmonary disease) Qualifiers: COPD type: unspecified COPD Qualified Code(s): J44.9 - Chronic obstructive pulmonary disease, unspecified Is this a current diagnosis for this admission?: Yes Plan: See admitting attending physician orders for details about care plan. - Time Time Spent: 50 to 70 Minutes Medications reviewed and adjusted accordingly: Yes Anticipated discharge: SNF Within: Other - Inpatient Certification Based on my medical assessment, after consideration of the patient's comorbidities, presenting symptoms, or acuity I expect that the services needed warrant INPATIENT care.: Yes I certify that my determination is in accordance with my understanding of Medicare's requirements for reasonable and necessary INPATIENT services [42 CFR 412.3e].: Yes Medical Necessity: Significant Comorbidiites Make Outpatient Treatment Too Risky, Need Close Monitoring Due to Risk of Patient Decompensation, Need For Continuous Telemetry Monitoring, Need for Surgery, Risk of Complication if Not Cared For in Hospital, Risk of Diagnosis Which Will Require Inpatient Eval/Care/Monitoring Post Hospital Care: D/C Multi Media Specialist Documentation - Plan Summary Plan Summary: See admitting attending physician orders for details about care plan.
[2019-01-14] MEDS: CARVEDILOL 12.5 MG TABLET PO SCH (22:12)
[2019-01-14] MEDS: PRIMIDONE 50 MG TABLET PO SCH (22:12)
[2019-01-14] MEDS: CARBAMAZEPINE 200 MG TABLET PO SCH (22:12)
[2019-01-14] MEDS: ATORVASTATIN CALCIUM 20 MG TABLET PO SCH (22:12)
[2019-01-14] MEDS: DONEPEZIL HCL 5 MG TABLET PO SCH (22:12)
[2019-01-14] MEDS: SERTRALINE HCL 50 MG TABLET PO SCH (22:13)
[2019-01-14] MEDS: LISINOPRIL 10 MG TABLET PO SCH (22:14)
--- NOTE | 2019-01-14 23:49 | EKG REPORT ---
SEVERITY:- ABNORMAL ECG - SINUS RHYTHM RIGHT BUNDLE BRANCH BLOCK PROBABLE LEFT VENTRICULAR HYPERTROPHY : Confirmed by: Estefany Degroot MD 14-Jan-2019 23:48:51
[2019-01-15] MEDS: PANTOPRAZOLE SODIUM 40 MG TABLET.DR PO SCH (05:43)
[2019-01-15] MEDS: PRIMIDONE 50 MG TABLET PO SCH ×3 (05:43→23:35)
[2019-01-15 06:59] LABS: ABSOLUTE EOSINOPHILS # (AUTO) 0.1 10^3/uL (0.0-0.6); ABSOLUTE LYMPHOCYTES (AUTO) 1.3 10^3/uL (0.5-4.7); ABSOLUTE MONOCYTES (AUTO) 0.3 10^3/uL (0.1-1.4); ABSOLUTE NEUT (AUTO) 2.4 10^3/uL (1.7-8.2); BASOPHILS % (AUTO) 0.6 % (0-2); EOSINOPHILS % (AUTO) 2.5 % (0-6); HEMATOCRIT 30.5 % (36.0-47.0); LYMPHOCYTES % (AUTO) 31.5 % (13-45); MEAN CORPUSCULAR HEMOGLOBIN 27.7 pg (27.0-33.4); MEAN CORPUSCULAR HGB CONC 32.9 g/dL (32.0-36.0); MEAN CORPUSCULAR VOLUME 84 fl (80-97); MONOCYTES % (AUTO) 7.9 % (3-13); PLATELET COUNT 238 10^3/uL (150-450); RED BLOOD COUNT 3.62 10^6/uL (3.72-5.28); RED CELL DISTRIBUTION WIDTH 16.6 % (11.5-14.0); SEGMENTED NEUTROPHILS % (AUTO) 57.5 % (42-78); TOTAL CELLS COUNTED % (AUTO) 100 %; WHITE BLOOD COUNT 4.1 10^3/uL (4.0-10.5)
[2019-01-15 07:11] LABS: ALBUMIN 2.7 g/dL (3.5-5.0); ALKALINE PHOSPHATASE 76 U/L (38-126); ANION GAP 6 (5-19); ASPARTATE AMINO TRANSFERASE 14 U/L (14-36); BILIRUBIN,DIRECT 0.1 mg/dL (0.0-0.4); BILIRUBIN,TOTAL 0.2 mg/dL (0.2-1.3); BLOOD UREA NITROGEN 18 mg/dL (7-20); CALCIUM 8.7 mg/dL (8.4-10.2); CARBON DIOXIDE 25 mmol/L (22-30); CHLORIDE 108 mmol/L (98-107); GLUCOSE 87 mg/dL (75-110); POTASSIUM 4.1 mmol/L (3.6-5.0); TOTAL PROTEIN 5.4 g/dL (6.3-8.2)
[2019-01-15] MEDS ORDERED: INFLUENZA QUAD (6MOS+) 2019-20 VAC 0.5 ML SYR IM ONE (08:00)
[2019-01-15] MEDS: AMLODIPINE BESYLATE 10 MG TABLET PO SCH (09:08)
[2019-01-15] MEDS: CARVEDILOL 12.5 MG TABLET PO SCH ×2 (09:08→23:33)
[2019-01-15] MEDS: DOCUSATE SODIUM 100 MG CAPSULE PO SCH ×3 (09:08→17:19)
[2019-01-15] MEDS: FERROUS SULFATE 325 MG TABLET PO SCH (09:08)
[2019-01-15] MEDS: LISINOPRIL 10 MG TABLET PO SCH (09:09)
[2019-01-15] MEDS: CARBAMAZEPINE 200 MG TABLET PO SCH ×2 (09:09→23:38)
[2019-01-15] MEDS ORDERED: (PENDING PHARMACY ID) (Ranitidine Hcl [Zantac] 300 MG) PO SCH (17:00)
[2019-01-15] MEDS: FAMOTIDINE 20 MG TABLET PO SCH (17:18)
--- NOTE | 2019-01-15 22:22 | PDOC PROGRESS REPORT ---
Subjective Progress Note for:: 01/15/19 Subjective:: Patient reported improvement in her level of fatigue, weakness, diarrhea and bowel function so far today. No abdominal pain, nausea or vomiting. Tolerating soft diet. No chest pain or difficulty with breathing. She was transfused 2 units PRBC since admission. Patient and daughter raised concern about repeat colonoscopy as per surgical recommendation. She had colonoscopy completed by Dr. Rangel at this institution on 12/12/18. Her colonoscopy was significant for stercoral ulcers in the rectal region, hence her bowel regimen to avoid constipation and ulceration. She was Reason For Visit: SYMPTOMATIC ANEMIA WITH GENERALIZED WEAKNESS,LOWER Physical Exam Vital Signs: Temp Pulse Resp BP Pulse Ox 98.2 F 82 18 171/75 H 95 01/15/19 19:37 01/15/19 19:37 01/15/19 19:37 01/15/19 19:37 01/15/19 19:37 Intake & Output 01/14/19 01/15/19 01/16/19 06:59 06:59 06:59 Intake Total 700 590 Balance 700 590 Weight 75.1 kg General appearance: PRESENT: no acute distress, well-developed, well-nourished Head exam: PRESENT: atraumatic, normocephalic Eye exam: PRESENT: conjunctiva pink. ABSENT: scleral icterus Ear exam: PRESENT: normal external ear exam Mouth exam: PRESENT: moist Respiratory exam: PRESENT: clear to auscultation ulysses, decreased breath sounds - at lung bases Cardiovascular exam: PRESENT: RRR. ABSENT: diastolic murmur, rubs, systolic murmur Vascular exam: ABSENT: pallor GI/Abdominal exam: PRESENT: normal bowel sounds, soft. ABSENT: distended, guarding, mass, organolmegaly, rebound, tenderness Extremities exam: ABSENT: pedal edema Musculoskeletal exam: PRESENT: deformity - related to multiple joints involvement with arthritis Neurological exam: PRESENT: alert, awake, oriented to situation Psychiatric exam: PRESENT: appropriate affect, normal mood. ABSENT: homicidal ideation, suicidal ideation Skin exam: PRESENT: dry, warm Results Laboratory Results: 01/15/19 06:23 01/15/19 06:23 01/14/19 01/15/19 01/15/19 16:26 06:23 06:23 WBC 4.1 RBC 3.62 L Hgb 10.0 L D Hct 30.5 L MCV 84 MCH 27.7 MCHC 32.9 RDW 16.6 H Plt Count 238 Seg Neutrophils % 57.5 Sodium 138.5 Potassium 4.1 Chloride 108 H Carbon Dioxide 25 Anion Gap 6 BUN 18 Creatinine 0.92 Est GFR ( Amer) > 60 Glucose 87 Calcium 8.7 Total Bilirubin 0.2 AST 14 Alkaline Phosphatase 76 Total Protein 5.4 L Albumin 2.7 L Blood Type O NEGATIVE Antibody Screen POSITIVE 01/14/19 15:51 Troponin I 0.014 Assessment & Plan - Diagnosis (1) Anemia due to chronic blood loss Is this a current diagnosis for this admission?: Yes Plan: Improved hemoglobin level post transfusion. Obtain CBC in AM. (2) Lower GI bleed Is this a current diagnosis for this admission?: Yes Plan: Continue to monitor and maintain on bowel regimen as tolerated. Follow up discussion with surgical team regarding any need for further evaluation. She had EGD and colonoscopy completed by Dr Rangel on 12/12/18 at this hospital. (3) Essential hypertension Is this a current diagnosis for this admission?: Yes Plan: Increase Lisinopril to 20 mg p.o daily. (4) CAD (coronary artery disease) Qualifiers: Coronary Disease-Associated Artery/Lesion type: [place] artery [place] vs. transplanted heart: [place] heart Associated angina: with unstable angina Qualified Code(s): I25.110 - Atherosclerotic heart disease of [place] coronary artery with unstable angina pectoris Is this a current diagnosis for this admission?: Yes Plan: Continue current medication management. (5) Chronic diastolic CHF (congestive heart failure) Is this a current diagnosis for this admission?: Yes Plan: Continue current medication management. (6) COPD (chronic obstructive pulmonary disease) Qualifiers: COPD type: unspecified COPD Qualified Code(s): J44.9 - Chronic obstructive pulmonary disease, unspecified Is this a current diagnosis for this admission?: Yes Plan: Continue current medication management. (7) Stercoral ulcer of rectum Is this a current diagnosis for this admission?: Yes Plan: Continue current bowel regimen with Colace administration and monitor frequency and consistency of her bowel movement. I will discuss with surgical team possibility of proctoscopy of flexible sigmoidoscopy evaluation instead of full colonoscopy if necessary at this time considering findings on her recent colonoscopy. (8) Senile debility Is this a current diagnosis for this admission?: Yes Plan: I had extensive discussion with patient and daughter regarding her poor functional level and need for further physical rehabilitation and up coming discharge from SNF. Daughter and patient are requesting for more rehabilitation and recuperation time at SNF upon discharge. I will engage discharge /social service director input to assess her situation regarding disposition request. I will request for PT/OT evaluation in am. - Time Time Spent with patient: 25-34 minutes Medications reviewed and adjusted accordingly: Yes Anticipated discharge: SNF Within: Other - Inpatient Certification Based on my medical assessment, after consideration of the patient's comorbidities, presenting symptoms, or acuity I expect that the services needed warrant INPATIENT care.: Yes I certify that my determination is in accordance with my understanding of Medicare's requirements for reasonable and necessary INPATIENT services [42 CFR 412.3e].: Yes Medical Necessity: Significant Comorbidiites Make Outpatient Treatment Too Risky, Need Close Monitoring Due to Risk of Patient Decompensation, Need For Continuous Telemetry Monitoring, Need for Surgery, Risk of Complication if Not Cared For in Hospital, Risk of Diagnosis Which Will Require Inpatient Eval/Care/Monitoring Post Hospital Care: D/C Revenue Agent Documentation - Plan Summary Plan Summary: See attending physician orders for details about care plan.
[2019-01-15] MEDS ORDERED: LISINOPRIL 10 MG TABLET PO ONE (23:00)
--- NOTE | 2019-01-15 23:32 | ADVANCED CARE ---
- Diagnosis (1) Anemia due to chronic blood loss Diagnosis Current: Yes (2) Lower GI bleed Diagnosis Current: Yes (3) Essential hypertension Diagnosis Current: Yes (4) CAD (coronary artery disease) Diagnosis Current: Yes (5) Chronic diastolic CHF (congestive heart failure) Diagnosis Current: Yes (6) COPD (chronic obstructive pulmonary disease) Diagnosis Current: Yes (7) Stercoral ulcer of rectum Diagnosis Current: Yes (8) Senile debility Diagnosis Current: Yes Resuscitation Status: Do Not Resuscitate Discussion: With patient and daughter. To maintain her on DNR status. Care Planning Goals: Maintain on current medical management with DNR status. Document(s) Completed: Yes. Order on the EHR system. Time Spent: Less than 15 minutes.
[2019-01-15] MEDS: DONEPEZIL HCL 5 MG TABLET PO SCH (23:36)
[2019-01-15] MEDS: SERTRALINE HCL 50 MG TABLET PO SCH (23:37)
[2019-01-15] MEDS: ATORVASTATIN CALCIUM 20 MG TABLET PO SCH (23:38)
[2019-01-16 05:56] LABS: ABSOLUTE EOSINOPHILS # (AUTO) 0.1 10^3/uL (0.0-0.6); ABSOLUTE LYMPHOCYTES (AUTO) 1.3 10^3/uL (0.5-4.7); ABSOLUTE MONOCYTES (AUTO) 0.4 10^3/uL (0.1-1.4); ABSOLUTE NEUT (AUTO) 2.5 10^3/uL (1.7-8.2); BASOPHILS % (AUTO) 0.3 % (0-2); HEMOGLOBIN 10.1 g/dL (12.0-15.5); LYMPHOCYTES % (AUTO) 30.6 % (13-45); MEAN CORPUSCULAR HEMOGLOBIN 27.5 pg (27.0-33.4); MEAN CORPUSCULAR HGB CONC 32.5 g/dL (32.0-36.0); MEAN CORPUSCULAR VOLUME 85 fl (80-97); MONOCYTES % (AUTO) 9.2 % (3-13); PLATELET COUNT 247 10^3/uL (150-450); RED BLOOD COUNT 3.67 10^6/uL (3.72-5.28); RED CELL DISTRIBUTION WIDTH 16.8 % (11.5-14.0); SEGMENTED NEUTROPHILS % (AUTO) 57.9 % (42-78); TOTAL CELLS COUNTED % (AUTO) 100 %; WHITE BLOOD COUNT 4.4 10^3/uL (4.0-10.5)
[2019-01-16] MEDS: PRIMIDONE 50 MG TABLET PO SCH ×3 (06:43→22:03)
[2019-01-16] MEDS: PANTOPRAZOLE SODIUM 40 MG TABLET.DR PO SCH (06:44)
[2019-01-16] MEDS: AMLODIPINE BESYLATE 10 MG TABLET PO SCH (09:01)
[2019-01-16] MEDS: FERROUS SULFATE 325 MG TABLET PO SCH (09:01)
[2019-01-16] MEDS: CARVEDILOL 12.5 MG TABLET PO SCH ×2 (09:01→22:02)
[2019-01-16] MEDS: LISINOPRIL 10 MG TABLET PO SCH (09:03)
[2019-01-16] MEDS: CARBAMAZEPINE 200 MG TABLET PO SCH ×2 (09:06→22:02)
[2019-01-16] MEDS: DOCUSATE SODIUM 100 MG CAPSULE PO SCH ×2 (09:06→17:07)
[2019-01-16] MEDS: FAMOTIDINE 20 MG TABLET PO SCH (16:34)
--- NOTE | 2019-01-16 19:09 | PDOC PROGRESS REPORT ---
Subjective Progress Note for:: 01/16/19 Subjective:: Patient reported some improvement in her oral intake so far today. No nausea, vomiting, or abdominal pain. No chest pain or difficulty with breathing. She expressed wish about walking again. Nursing staff reported continued tarry stool and some amount of bright blood with assisted rectal cleaning. Reason For Visit: SYMPTOMATIC ANEMIA WITH GENERALIZED WEAKNESS,LOWER Physical Exam Vital Signs: Temp Pulse Resp BP Pulse Ox 98.3 F 73 18 137/57 H 99 01/16/19 16:00 01/16/19 16:00 01/16/19 16:00 01/16/19 16:00 01/16/19 16:00 Intake & Output 01/15/19 01/16/19 01/17/19 06:59 06:59 06:59 Intake Total 700 590 Balance 700 590 Weight 75.1 kg 76.2 kg 76.2 kg Physical Exam: General appearance: PRESENT: no acute distress, well-developed, well-nourished Head exam: PRESENT: atraumatic, normocephalic Eye exam: PRESENT: conjunctiva pink. ABSENT: pallor, scleral icterus Ear exam: PRESENT: normal external ear exam Mouth exam: PRESENT: moist Respiratory exam: PRESENT: clear to auscultation ulysses, decreased breath sounds - at lung bases Cardiovascular exam: PRESENT: RRR. ABSENT: diastolic murmur, rubs, systolic m urmur GI/Abdominal exam: PRESENT: normal bowel sounds, soft. ABSENT: distended, guarding, mass, organomegaly, rebound, tenderness Extremities exam: PRESENT: Left upper extremity post mastectomy lymphedema. ABSENT: pedal edema Musculoskeletal exam: PRESENT: deformity - related to multiple joints inv olvement with arthritis Neurological exam: PRESENT: alert, awake, oriented to situation Psychiatric exam: PRESENT: appropriate affect, normal mood. ABSENT: homicidal ideation, suicidal ideation Skin exam: PRESENT: dry, warm Results Laboratory Results: 01/16/19 05:27 01/15/19 06:23 01/16/19 05:27 WBC 4.4 RBC 3.67 L Hgb 10.1 L Hct 31.0 L MCV 85 MCH 27.5 MCHC 32.5 RDW 16.8 H Plt Count 247 Seg Neutrophils % 57.9 01/14/19 15:51 Troponin I 0.014 Assessment & Plan - Diagnosis (1) Anemia due to chronic blood loss Is this a current diagnosis for this admission?: Yes (2) Lower GI bleed Is this a current diagnosis for this admission?: Yes (3) Essential hypertension Is this a current diagnosis for this admission?: Yes (4) CAD (coronary artery disease) Qualifiers: Coronary Disease-Associated Artery/Lesion type: [place] artery [place] vs. transplanted heart: [place] heart Associated angina: with unstable angina Qualified Code(s): I25.110 - Atherosclerotic heart disease of [place] coronary artery with unstable angina pectoris Is this a current diagnosis for this admission?: Yes (5) Chronic diastolic CHF (congestive heart failure) Is this a current diagnosis for this admission?: Yes (6) COPD (chronic obstructive pulmonary disease) Qualifiers: COPD type: unspecified COPD Qualified Code(s): J44.9 - Chronic obstructive pulmonary disease, unspecified Is this a current diagnosis for this admission?: Yes (7) Stercoral ulcer of rectum Is this a current diagnosis for this admission?: Yes (8) Senile debility Is this a current diagnosis for this admission?: Yes - Time Time Spent with patient: 25-34 minutes Medications reviewed and adjusted accordingly: Yes Anticipated discharge: SNF Within: Other - Inpatient Certification Medical Necessity: Significant Comorbidiites Make Outpatient Treatment Too Risky, Need Close Monitoring Due to Risk of Patient Decompensation, Need for Surgery, Risk of Complication if Not Cared For in Hospital, Risk of Diagnosis Which Will Require Inpatient Eval/Care/Monitoring Post Hospital Care: D/C Station Cleaning Porter Documentation - Plan Summary Plan Summary: Continue current medication management. I discussed with waterworks pump station operator surgicalist regarding proctoscopy versus flexible sigmoidoscopy instead of full colonoscopy to re evaluate patient's rectal stercoral ulcer.
[2019-01-16] MEDS: SERTRALINE HCL 50 MG TABLET PO SCH (22:02)
[2019-01-16] MEDS: ATORVASTATIN CALCIUM 20 MG TABLET PO SCH (22:03)
[2019-01-16] MEDS: DONEPEZIL HCL 5 MG TABLET PO SCH (22:03)
[2019-01-17] MEDS ORDERED: DEXTROSE 50%-WATER 25 GM/50 ML DISP.SYRIN IV PRN ×2 (04:03)
[2019-01-17] MEDS ORDERED: GLUCAGON,HUMAN RECOMB 1 MG INJ SUBCUT PRN (04:03)
[2019-01-17] MEDS ORDERED: DEXTROSE 40% GEL 15 GM TUBE PO PRN ×2 (04:03)
[2019-01-17] MEDS: PANTOPRAZOLE SODIUM 40 MG TABLET.DR PO SCH (06:29)
[2019-01-17] MEDS: PRIMIDONE 50 MG TABLET PO SCH ×3 (06:29→21:56)
--- NOTE | 2019-01-17 07:19 | PDOC PROGRESS REPORT ---
Subjective Progress Note for:: 01/17/19 Subjective:: comfortable. no pains. No rectal bleed past 2-3 days Reason For Visit: SYMPTOMATIC ANEMIA WITH GENERALIZED WEAKNESS,LOWER Physical Exam Vital Signs: Temp Pulse Resp BP Pulse Ox 98.7 F 73 18 158/69 H 100 01/16/19 20:00 01/17/19 02:00 01/16/19 20:00 01/16/19 20:00 01/16/19 20:00 Intake & Output 01/16/19 01/17/19 01/18/19 06:59 06:59 06:59 Intake Total 590 0 Balance 590 0 Weight 76.2 kg 76.5 kg Exam: Abdomen is soft and non tender Alert and oriented Results Laboratory Results: 01/16/19 05:27 01/15/19 06:23 01/14/19 15:51 Troponin I 0.014 Assessment & Plan - Diagnosis (1) Lower GI bleed Is this a current diagnosis for this admission?: Yes - Time Time Spent with patient: 15-24 minutes - Plan Summary Plan Summary: also call your request that I do proctoscopy. Patient has been stable with no rectal bleed with a hemoglobin of 10 for the past 2 to 3days. I have discussed the patient with Dr. Rangel who did her colonoscopy in 12/12/2018. Patient's biopsy of the rectum was benign and he she has stopped bleeding with a stable hemoglobin. Dr. Rangel feels that is not necessary to do another proctoscopy at this time. I agree with him because the only indication to do proctoscopy if patient still bleeding and the bleeding need to be stopped. At present there is no evidence of active bleeding with a he moglobin is stable for the past 2 to 3 days. If patient rebleeds then that is a time to do proctoscopy.
[2019-01-17] MEDS: LISINOPRIL 10 MG TABLET PO SCH (09:03)
[2019-01-17] MEDS: CARVEDILOL 12.5 MG TABLET PO SCH ×2 (09:03→21:55)
[2019-01-17] MEDS: AMLODIPINE BESYLATE 10 MG TABLET PO SCH (09:03)
[2019-01-17] MEDS: FERROUS SULFATE 325 MG TABLET PO SCH (09:03)
[2019-01-17 09:04] LABS: ABSOLUTE EOSINOPHILS # (AUTO) 0.1 10^3/uL (0.0-0.6); ABSOLUTE LYMPHOCYTES (AUTO) 1.3 10^3/uL (0.5-4.7); ABSOLUTE MONOCYTES (AUTO) 0.4 10^3/uL (0.1-1.4); ABSOLUTE NEUT (AUTO) 3.4 10^3/uL (1.7-8.2); BASOPHILS % (AUTO) 0.3 % (0-2); EOSINOPHILS % (AUTO) 1.8 % (0-6); HEMATOCRIT 29.8 % (36.0-47.0); HEMOGLOBIN 9.6 g/dL (12.0-15.5); LYMPHOCYTES % (AUTO) 25.6 % (13-45); MEAN CORPUSCULAR HEMOGLOBIN 27.5 pg (27.0-33.4); MEAN CORPUSCULAR HGB CONC 32.3 g/dL (32.0-36.0); MEAN CORPUSCULAR VOLUME 85 fl (80-97); MONOCYTES % (AUTO) 7.2 % (3-13); PLATELET COUNT 241 10^3/uL (150-450); RED CELL DISTRIBUTION WIDTH 16.7 % (11.5-14.0); SEGMENTED NEUTROPHILS % (AUTO) 65.1 % (42-78); TOTAL CELLS COUNTED % (AUTO) 100 %; WHITE BLOOD COUNT 5.3 10^3/uL (4.0-10.5)
[2019-01-17] MEDS: DOCUSATE SODIUM 100 MG CAPSULE PO SCH (09:04)
[2019-01-17] MEDS: CARBAMAZEPINE 200 MG TABLET PO SCH ×2 (09:05→21:56)
[2019-01-17] MEDS: FAMOTIDINE 20 MG TABLET PO SCH (17:06)
--- NOTE | 2019-01-17 18:33 | PDOC PROGRESS REPORT ---
Subjective Progress Note for:: 01/17/19 Subjective:: No chest pain or difficulty with breathing. No nausea, vomiting, or abdominal pain. She denied any significant rectal bleeding so far today. Surgical team will not perform any further invasive evaluation at this time in light of no active bleeding. Reason For Visit: SYMPTOMATIC ANEMIA WITH GENERALIZED WEAKNESS,LOWER Physical Exam Vital Signs: Temp Pulse Resp BP Pulse Ox 97.6 F 70 16 120/49 L 96 01/17/19 12:46 01/17/19 12:46 01/17/19 12:46 01/17/19 12:46 01/17/19 12:46 Intake & Output 01/16/19 01/17/19 01/18/19 06:59 06:59 06:59 Intake Total 590 0 240 Balance 590 0 240 Weight 76.2 kg 76.5 kg Physical Exam: General appearance: PRESENT: no acute distress, well-developed, well-nourished Head exam: PRESENT: atraumatic, normocephalic Eye exam: PRESENT: conjunctiva pink. ABSENT: pallor, scleral icterus Ear exam: PRESENT: normal external ear exam Mouth exam: PRESENT: moist Respiratory exam: PRESENT: clear to auscultation ulysses, decreased breath sounds - at lung bases Cardiovascular exam: PRESENT: RRR. ABSENT: diastolic murmur, rubs, systolic murmur GI/Abdominal exam: PRESENT: normal bowel sounds, soft. ABSENT: distended, guarding, mass, organomegaly, rebound, tenderness Extremities exam: PRESENT: Left upper extremity post mastectomy lymphedema. ABSENT: pedal edema Musculoskeletal exam: PRESENT: deformity - related to multiple joints involvement with arthritis Neurological exam: PRESENT: alert, awake, oriented to situation Psychiatric exam: PRESENT: appropriate affect, normal mood. ABSENT: homicidal ideation, suicidal ideation Skin exam: PRESENT: dry, warm Results Laboratory Results: 01/17/19 08:33 01/15/19 06:23 01/17/19 08:33 WBC 5.3 RBC 3.50 L Hgb 9.6 L Hct 29.8 L MCV 85 MCH 27.5 MCHC 32.3 RDW 16.7 H Plt Count 241 Seg Neutrophils % 65.1 01/14/19 15:51 Troponin I 0.014 Assessment & Plan - Diagnosis (1) Anemia due to chronic blood loss Is this a current diagnosis for this admission?: Yes (2) Lower GI bleed Is this a current diagnosis for this admission?: Yes (3) Essential hypertension Is this a current diagnosis for this admission?: Yes (4) CAD (coronary artery disease) Qualifiers: Coronary Disease-Associated Artery/Lesion type: [place] artery [place] vs. transplanted heart: [place] heart Associated angina: with unstable angina Qualified Code(s): I25.110 - Atherosclerotic heart disease of [place] coronary artery with unstable angina pectoris Is this a current diagnosis for this admission?: Yes (5) Chronic diastolic CHF (congestive heart failure) Is this a current diagnosis for this admission?: Yes (6) COPD (chronic obstructive pulmonary disease) Qualifiers: COPD type: unspecified COPD Qualified Code(s): J44.9 - Chronic obstructive pulmonary disease, unspecified Is this a current diagnosis for this admission?: Yes (7) Stercoral ulcer of rectum Is this a current diagnosis for this admission?: Yes (8) Senile debility Is this a current diagnosis for this admission?: Yes - Time Time Spent with patient: 25-34 minutes Medications reviewed and adjusted accordingly: Yes Anticipated discharge: SNF Within: Other - Inpatient Certification Based on my medical assessment, after consideration of the patient's comorbidities, presenting symptoms, or acuity I expect that the services needed warrant INPATIENT care.: Yes I certify that my determination is in accordance with my understanding of Medicare's requirements for reasonable and necessary INPATIENT services [42 CFR 412.3e].: Yes Medical Necessity: Significant Comorbidiites Make Outpatient Treatment Too Risky, Need Close Monitoring Due to Risk of Patient Decompensation, Need For Continuous Telemetry Monitoring, Risk of Complication if Not Cared For in Hospital, Risk of Diagnosis Which Will Require Inpatient Eval/Care/Monitoring Post Hospital Care: D/C or Transfer Summary - Plan Summary Plan Summary: Continue current medication management. Follow up on physical therapy input. I discussed care plan with patient and daughter at bedside regarding surgical team recommendation and discharge licensed social worker input.
[2019-01-17] MEDS: DONEPEZIL HCL 5 MG TABLET PO SCH (21:56)
[2019-01-17] MEDS: SERTRALINE HCL 50 MG TABLET PO SCH (21:56)
[2019-01-17] MEDS: ATORVASTATIN CALCIUM 20 MG TABLET PO SCH (21:56)
[2019-01-18] MEDS: PANTOPRAZOLE SODIUM 40 MG TABLET.DR PO SCH (05:50)
[2019-01-18] MEDS: PRIMIDONE 50 MG TABLET PO SCH ×3 (05:51→21:20)
[2019-01-18] MEDS: AMLODIPINE BESYLATE 10 MG TABLET PO SCH (09:48)
[2019-01-18] MEDS: CARBAMAZEPINE 200 MG TABLET PO SCH ×2 (12:06→21:20)
[2019-01-18] MEDS: LISINOPRIL 10 MG TABLET PO SCH (12:06)
[2019-01-18] MEDS: CARVEDILOL 12.5 MG TABLET PO SCH ×2 (12:07→21:20)
[2019-01-18] MEDS: FERROUS SULFATE 325 MG TABLET PO SCH (12:07)
[2019-01-18] MEDS: DOCUSATE SODIUM 100 MG CAPSULE PO SCH (12:10)
--- NOTE | 2019-01-18 15:55 | PDOC PROGRESS REPORT ---
Subjective Progress Note for:: 01/18/19 Subjective:: Patient seen by the bedside there is no new complaints Reason For Visit: SYMPTOMATIC ANEMIA WITH GENERALIZED WEAKNESS,LOWER Physical Exam Vital Signs: Temp Pulse Resp BP Pulse Ox 97.7 F 71 17 143/69 H 99 01/18/19 11:38 01/18/19 11:38 01/18/19 11:38 01/18/19 11:38 01/18/19 11:38 Intake & Output 01/17/19 01/18/19 01/19/19 06:59 06:59 06:59 Intake Total 0 590 480 Balance 0 590 480 Weight 76.5 kg General appearance: PRESENT: no acute distress Eye exam: PRESENT: PERRLA Respiratory exam: PRESENT: clear to auscultation ulysses Cardiovascular exam: PRESENT: +S1, +S2 Results Laboratory Results: 01/17/19 08:33 01/15/19 06:23 01/14/19 15:51 Troponin I 0.014 Assessment & Plan - Diagnosis (1) Lower GI bleed Is this a current diagnosis for this admission?: Yes Plan: No active bleeding presently - Time Time Spent with patient: Less than 15 minutes Level of Care: MEDICAL
[2019-01-18] MEDS: FAMOTIDINE 20 MG TABLET PO SCH (18:46)
[2019-01-18] MEDS: SERTRALINE HCL 50 MG TABLET PO SCH (21:20)
[2019-01-18] MEDS: DONEPEZIL HCL 5 MG TABLET PO SCH (21:20)
[2019-01-18] MEDS: ATORVASTATIN CALCIUM 20 MG TABLET PO SCH (21:20)
[2019-01-19] MEDS: PANTOPRAZOLE SODIUM 40 MG TABLET.DR PO SCH (06:08)
[2019-01-19] MEDS: PRIMIDONE 50 MG TABLET PO SCH ×3 (06:08→21:06)
[2019-01-19] MEDS: FERROUS SULFATE 325 MG TABLET PO SCH (09:23)
[2019-01-19] MEDS: AMLODIPINE BESYLATE 10 MG TABLET PO SCH (09:23)
[2019-01-19] MEDS: LISINOPRIL 10 MG TABLET PO SCH (09:23)
[2019-01-19] MEDS: CARVEDILOL 12.5 MG TABLET PO SCH ×2 (09:23→21:06)
[2019-01-19] MEDS: CARBAMAZEPINE 200 MG TABLET PO SCH ×2 (09:23→21:06)
[2019-01-19] MEDS: DOCUSATE SODIUM 100 MG CAPSULE PO SCH (09:23)
--- NOTE | 2019-01-19 13:32 | PDOC PROGRESS REPORT ---
Subjective Progress Note for:: 01/19/19 Subjective:: Patient seen by the bedside there is no new complaints Reason For Visit: SYMPTOMATIC ANEMIA WITH GENERALIZED WEAKNESS,LOWER Physical Exam Vital Signs: Temp Pulse Resp BP Pulse Ox 97.3 F 77 20 153/60 H 98 01/19/19 08:00 01/19/19 08:00 01/19/19 08:00 01/19/19 08:00 01/19/19 08:00 Intake & Output 01/18/19 01/19/19 01/20/19 06:59 06:59 06:59 Intake Total 590 920 Balance 590 920 Weight 75.8 kg General appearance: PRESENT: no acute distress Eye exam: PRESENT: PERRLA Respiratory exam: PRESENT: clear to auscultation ulysses Cardiovascular exam: PRESENT: +S1, +S2 GI/Abdominal exam: PRESENT: soft Results Laboratory Results: 01/17/19 08:33 01/15/19 06:23 01/14/19 15:51 Troponin I 0.014 Assessment & Plan - Diagnosis (1) Lower GI bleed Is this a current diagnosis for this admission?: Yes - Time Time Spent with patient: Less than 15 minutes
[2019-01-19] MEDS: FAMOTIDINE 20 MG TABLET PO SCH (18:02)
[2019-01-19] MEDS: SERTRALINE HCL 50 MG TABLET PO SCH (21:06)
[2019-01-19] MEDS: ATORVASTATIN CALCIUM 20 MG TABLET PO SCH (21:06)
[2019-01-19] MEDS: DONEPEZIL HCL 5 MG TABLET PO SCH (21:06)
[2019-01-20] MEDS: PRIMIDONE 50 MG TABLET PO SCH ×3 (05:17→22:21)
[2019-01-20] MEDS: PANTOPRAZOLE SODIUM 40 MG TABLET.DR PO SCH (05:17)
[2019-01-20] MEDS: AMLODIPINE BESYLATE 10 MG TABLET PO SCH (08:23)
[2019-01-20] MEDS: CARVEDILOL 12.5 MG TABLET PO SCH ×2 (10:06→22:20)
[2019-01-20] MEDS: FERROUS SULFATE 325 MG TABLET PO SCH (10:06)
[2019-01-20] MEDS: LISINOPRIL 10 MG TABLET PO SCH (10:06)
[2019-01-20] MEDS: DOCUSATE SODIUM 100 MG CAPSULE PO SCH (10:07)
[2019-01-20] MEDS: CARBAMAZEPINE 200 MG TABLET PO SCH ×2 (10:15→22:19)
[2019-01-20] MEDS: FAMOTIDINE 20 MG TABLET PO SCH (16:42)
[2019-01-20] MEDS: DONEPEZIL HCL 5 MG TABLET PO SCH (22:19)
[2019-01-20] MEDS: ATORVASTATIN CALCIUM 20 MG TABLET PO SCH (22:20)
[2019-01-20] MEDS: SERTRALINE HCL 50 MG TABLET PO SCH (22:21)
--- NOTE | 2019-01-21 01:50 | PDOC PROGRESS REPORT ---
Subjective Progress Note for:: 01/20/19 Subjective:: No chest pain or difficulty with breathing. No nausea, vomiting, or abdominal pain. She denied any significant rectal bleeding so far today. Patient participated in PT session since my last evaluation. She required 2 person assistance and use of a walker for ambulation. Reason For Visit: SYMPTOMATIC ANEMIA WITH GENERALIZED WEAKNESS,LOWER Physical Exam Vital Signs: Temp Pulse Resp BP Pulse Ox 98.1 F 70 18 143/55 H 97 01/20/19 12:20 01/20/19 14:00 01/20/19 12:20 01/20/19 12:20 01/20/19 12:20 Intake & Output 01/19/19 01/20/19 01/21/19 06:59 06:59 06:59 Intake Total 920 1001 640 Balance 920 1001 640 Weight 75.8 kg 76.7 kg Physical Exam: General appearance: PRESENT: no acute distress, well-developed, well-nourished Head exam: PRESENT: atraumatic, normocephalic Eye exam: PRESENT: conjunctiva pink. ABSENT: pallor, scleral icterus Ear exam: PRESENT: normal external ear exam Mouth exam: PRESENT: moist Respiratory exam: PRESENT: clear to auscultation ulysses, decreased breath sounds - at lung bases Cardiovascular exam: PRESENT: RRR. ABSENT: diastolic murmur, rubs, systolic murmur GI/Abdominal exam: PRESENT: normal bowel sounds, soft. ABSENT: distended, guarding, mass, organomegaly, rebound, tenderness Extremities exam: PRESENT: Left upper extremity post mastectomy lymphedema. ABSENT: pedal edema Musculoskeletal exam: PRESENT: deformity - related to multiple joints involvement with arthritis Neurological exam: PRESENT: alert, awake, oriented to situation Psychiatric exam: PRESENT: appropriate affect, normal mood. ABSENT: homicidal ideation, suicidal ideation Skin exam: PRESENT: dry, warm Results Laboratory Results: 01/17/19 08:33 01/15/19 06:23 01/14/19 15:51 Troponin I 0.014 Assessment & Plan - Diagnosis (1) Anemia due to chronic blood loss Is this a current diagnosis for this admission?: Yes (2) Lower GI bleed Is this a current diagnosis for this admission?: Yes (3) Essential hypertension Is this a current diagnosis for this admission?: Yes (4) CAD (coronary artery disease) Qualifiers: Coronary Disease-Associated Artery/Lesion type: [place] artery [place] vs. transplanted heart: [place] heart Associated angina: with unstable angina Qualified Code(s): I25.110 - Atherosclerotic heart disease of [place] coronary artery with unstable angina pectoris Is this a current diagnosis for this admission?: Yes (5) Chronic diastolic CHF (congestive heart failure) Is this a current diagnosis for this admission?: Yes (6) COPD (chronic obstructive pulmonary disease) Qualifiers: COPD type: unspecified COPD Qualified Code(s): J44.9 - Chronic obstructive pulmonary disease, unspecified Is this a current diagnosis for this admission?: Yes (7) Stercoral ulcer of rectum Is this a current diagnosis for this admission?: Yes (8) Senile debility Is this a current diagnosis for this admission?: Yes - Time Time Spent with patient: 25-34 minutes Level of Care: MEDICAL Medications reviewed and adjusted accordingly: Yes Anticipated discharge: SNF - for contonue need of physical rehabilitation. Within: within 24 hours - Inpatient Certification Based on my medical assessment, after consideration of the patient's comorbidities, presenting symptoms, or acuity I expect that the services needed warrant INPATIENT care.: Yes I certify that my determination is in accordance with my understanding of Medicare's requirements for reasonable and necessary INPATIENT services [42 CFR 412.3e].: Yes Medical Necessity: Significant Comorbidiites Make Outpatient Treatment Too Risky, Need Close Monitoring Due to Risk of Patient Decompensation, Risk of Complication if Not Cared For in Hospital, Risk of Diagnosis Which Will Require Inpatient Eval/Care/Monitoring Post Hospital Care: D/C Environment Coordinator Documentation - Plan Summary Plan Summary: Continue current medication management and PT session. Patient aware of discharge to [facility] due to continue need for physical therapy.
[2019-01-21 03:37] LABS: ABSOLUTE EOSINOPHILS # (AUTO) 0.1 10^3/uL (0.0-0.6); ABSOLUTE LYMPHOCYTES (AUTO) 1.2 10^3/uL (0.5-4.7); ABSOLUTE MONOCYTES (AUTO) 0.4 10^3/uL (0.1-1.4); ABSOLUTE NEUT (AUTO) 2.1 10^3/uL (1.7-8.2); BASOPHILS % (AUTO) 0.5 % (0-2); EOSINOPHILS % (AUTO) 2.8 % (0-6); HEMATOCRIT 25.6 % (36.0-47.0); HEMOGLOBIN 8.3 g/dL (12.0-15.5); LYMPHOCYTES % (AUTO) 31.5 % (13-45); MEAN CORPUSCULAR HEMOGLOBIN 27.5 pg (27.0-33.4); MEAN CORPUSCULAR HGB CONC 32.4 g/dL (32.0-36.0); MEAN CORPUSCULAR VOLUME 85 fl (80-97); MONOCYTES % (AUTO) 9.8 % (3-13); PLATELET COUNT 199 10^3/uL (150-450); RED BLOOD COUNT 3.02 10^6/uL (3.72-5.28); RED CELL DISTRIBUTION WIDTH 15.7 % (11.5-14.0); SEGMENTED NEUTROPHILS % (AUTO) 55.4 % (42-78); TOTAL CELLS COUNTED % (AUTO) 100 %; WHITE BLOOD COUNT 3.8 10^3/uL (4.0-10.5)
[2019-01-21] MEDS: PANTOPRAZOLE SODIUM 40 MG TABLET.DR PO SCH (05:27)
[2019-01-21] MEDS: PRIMIDONE 50 MG TABLET PO SCH ×3 (05:28→22:04)
[2019-01-21] MEDS ORDERED: NORMAL SALINE 250 ML IV PRN ×2 (08:23)
[2019-01-21] MEDS: AMLODIPINE BESYLATE 10 MG TABLET PO SCH (08:23)
--- NOTE | 2019-01-21 10:27 | PDOC CONSULTATION ---
Consultation Consult Date: 01/21/19 Provider Consulted: ESTELLA MAYER Consult reason:: Evaluate gastrointestinal bleed History of Present Illness Admission Date/PCP: 01/14/19 17:46 MARISSARAMONE PHAM Patient complains of: Bleeding. History of Present Illness: BERNABE DORMAN is a 83 year old female noted with rectal ulcers several weeks ago on endoscopy currently in the hospital for a recurrent to gastrointestinal bleed. Patient had an upper and lower endoscopy several weeks ago that was noteworthy for a rectal ulcers. She however had recurrent blood per rectum and was hospitalized. She was managed conservatively without repeat endoscopy and she apparently was doing well up until today when she was noted with blood per rectum. Hemodynamically stable. Her hematocrit did drop. Patient denies any abdominal pain. She is not on any anticoagulation. Past Medical History Cardiac Medical History: Reports: Congestive Heart Failure, Coronary Artery Disease, Myocardial Infarction - unsure, Hyperlipidema, Hypertension, Heart Murmur Denies: Atrial Fibrillation, Peripheral Vascular Disease, Pulmonary Embolism Pulmonary Medical History: Reports: Chronic Obstructive Pulmonary Disease (COPD), Sleep Apnea Denies: Asthma, Bronchitis, Pneumonia, Respiratory Failure, Tuberculosis Neurological Medical History: Denies: Seizures Endocrine Medical History: Denies: Hyperthyroidism, Hypothyroidism Renal/ Medical History: Denies: End Stage Renal Disease Malignancy Medical History: Reports: Breast Cancer - left breast, Lung Cancer - right lung nodules Denies: Cervical Cancer, Leukemia, Ovarian Cancer GI Medical History: Reports: Gastroesophageal Reflux Disease, Hiatal Hernia Denies: Crohn's Disease Musculoskeltal Medical History: Reports: Arthritis Denies: Fibromyalgia Psychiatric Medical History: Denies: Bipolar Disorder, Dementia, Depression, Post Traumatic Stress Disorder Hematology: Reports: Anemia Denies: Hemophilia, Sickle Cell Disease Infectious Medical History: Denies: HIV Past Surgical History Past Surgical History: Reports: Cardiac Catheterization, Coronary Artery Bypass Graft - stent, Coronary Stent, Hysterectomy, Mastectomy - Left breast, Orthopedic Surgery - right hip replacement Denies: Amputation, Appendectomy, Section, Cholecystectomy, Colostomy, Gastric Bypass Surgery, Herniorrhaphy, Pacemaker, Tonsillectomy, Tubal Ligation Social History Smoking Status: Never Smoker Electronic Cigarette use?: No Frequency of Alcohol Use: None Hx Recreational Drug Use: No Drugs: None Hx Prescription Drug Abuse: No - Advance Directive Resuscitation Status: Do Not Resuscitate Family History Family History: Reviewed & Not Pertinent, Hypertension Parental Family History Reviewed: No Children Family History Reviewed: No Sibling(s) Family History Reviewed.: No Medication/Allergy Home Medications: Amlodipine Besylate [Norvasc 10 mg Tablet] 10 mg PO QAM 11/24/18 Carbamazepine [Tegretol 200 mg Tablet] 400 mg PO BID 11/24/18 Carvedilol [Coreg 25 mg Tablet] 25 mg PO Q12 11/24/18 Docusate Sodium [Colace 100 mg Capsule] 100 mg PO BID 11/24/18 Donepezil HCl [Aricept 5 mg Tablet] 5 mg PO QHS 11/24/18 Ferrous Sulfate [Feosol 325 mg Tablet] 325 mg PO DAILY 11/24/18 Oxycodone HCl [Oxy-Ir 5 mg Tablet] 5 mg PO Q8HP PRN 11/24/18 Primidone [Mysoline] 100 mg PO TID 11/24/18 Ranitidine HCl [Zantac] 300 mg PO WSUPPER 11/24/18 Rosuvastatin Calcium [Crestor 10 mg Tablet] 10 mg PO QHS 11/24/18 Sertraline HCl [Zoloft 50 mg Tablet] 50 mg PO QHS 11/24/18 Lisinopril [Prinivil 10 mg Tablet] 10 mg PO DAILY #30 tablet 11/26/18 Sucralfate [Carafate 1 gm Tablet] 1 tab PO QID 12/12/18 Menthol/Zinc Oxide [Calmoseptine Ointment] 1 applic TP DAILY 01/14/19 Polyethylene Glycol 3350 [Miralax Powder 17 gm/Packet] 1 packet PO DAILY Allergies/Adverse Reactions: promethazine HCl [From Phenergan] Allergy (Verified 12/07/18 14:57) Physical Exam Vital Signs: Temp Pulse Resp BP Pulse Ox 98.1 F 79 18 136/66 H 97 01/21/19 08:07 01/21/19 08:07 01/21/19 08:07 01/21/19 08:07 01/21/19 08:07 Intake & Output 01/20/19 01/21/19 01/22/19 06:59 06:59 06:59 Intake Total 1001 640 Balance 1001 640 Weight 76.7 kg 69.5 kg General appearance: PRESENT: no acute distress, cooperative Eye exam: PRESENT: conjunctiva pink Respiratory exam: PRESENT: clear to auscultation ulysses Cardiovascular exam: PRESENT: RRR GI/Abdominal exam: PRESENT: other - Soft, nondistended, nontender to palpation. Neurological exam: PRESENT: alert, awake Psychiatric exam: PRESENT: appropriate affect Skin exam: PRESENT: warm Results Laboratory Results: 01/21/19 02:57 01/15/19 06:23 01/21/19 02:57 WBC 3.8 L RBC 3.02 L Hgb 8.3 L Hct 25.6 L MCV 85 MCH 27.5 MCHC 32.4 RDW 15.7 H Plt Count 199 Seg Neutrophils % 55.4 01/14/19 15:51 Troponin I 0.014 Assessment & Plan - Diagnosis (1) Lower GI bleed Is this a current diagnosis for this admission?: Yes Plan: Recurrent lower GI bleed. Will plan repeat colonoscopy. I have discussed with the patient the risk and benefits of the procedure including risk of colon injury and bleeding and recurrence. Will start a bowel prep today we will plan to procedure tomorrow.
[2019-01-21] MEDS: CARVEDILOL 12.5 MG TABLET PO SCH ×2 (10:40→22:04)
[2019-01-21] MEDS: DOCUSATE SODIUM 100 MG CAPSULE PO SCH (10:41)
[2019-01-21] MEDS: FERROUS SULFATE 325 MG TABLET PO SCH (10:41)
[2019-01-21] MEDS: LISINOPRIL 10 MG TABLET PO SCH (10:41)
[2019-01-21] MEDS ORDERED: PEG 3350/NA SULF,BICARB,CL/KCL 4000 ML PO ONE (11:00)
[2019-01-21] MEDS: CARBAMAZEPINE 200 MG TABLET PO SCH ×2 (11:40→22:04)
[2019-01-21] MEDS: FAMOTIDINE 20 MG TABLET PO SCH (17:28)
--- NOTE | 2019-01-21 18:24 | PDOC PROGRESS REPORT ---
Subjective Progress Note for:: 01/21/19 Subjective:: No chest pain or difficulty with breathing. No nausea, vomiting, or abdominal pain. She continue to experience tarry stool. She denied any dizziness or lightheadedness. Reason For Visit: SYMPTOMATIC ANEMIA WITH GENERALIZED WEAKNESS,LOWER Physical Exam Vital Signs: Temp Pulse Resp BP Pulse Ox 97.8 F 76 16 153/96 H 98 01/21/19 17:20 01/21/19 17:20 01/21/19 17:20 01/21/19 17:20 01/21/19 17:20 Intake & Output 01/20/19 01/21/19 01/22/19 06:59 06:59 06:59 Intake Total 2176 692 3377 Balance 6513 092 1917 Weight 76.7 kg 69.5 kg Physical Exam: General appearance: PRESENT: no acute distress, well-developed, well-nourished Head exam: PRESENT: atraumatic, normocephalic Eye exam: PRESENT: conjunctiva pink. ABSENT: pallor, scleral icterus Ear exam: PRESENT: normal external ear exam Mouth exam: PRESENT: moist Respiratory exam: PRESENT: clear to auscultation ulysses, decreased breath sounds - at lung bases Cardiovascular exam: PRESENT: RRR. ABSENT: diastolic murmur, rubs, systolic murmur GI/Abdominal exam: PRESENT: normal bowel sounds, soft. ABSENT: distended, guarding, mass, organomegaly, rebound, tenderness Extremities exam: PRESENT: Left upper extremity post mastectomy lymphedema. ABSENT: pedal edema Musculoskeletal exam: PRESENT: deformity - related to multiple joints involvement with arthritis Neurological exam: PRESENT: alert, awake, oriented to situation Psychiatric exam: PRESENT: appropriate affect, normal mood. ABSENT: homicidal ideation, suicidal ideation Skin exam: PRESENT: dry, warm Results Laboratory Results: 01/21/19 02:57 01/15/19 06:23 01/21/19 01/21/19 02:57 09:23 WBC 3.8 L RBC 3.02 L Hgb 8.3 L Hct 25.6 L MCV 85 MCH 27.5 MCHC 32.4 RDW 15.7 H Plt Count 199 Seg Neutrophils % 55.4 Blood Type O NEGATIVE Antibody Screen POSITIVE 01/14/19 15:51 Troponin I 0.014 Assessment & Plan - Diagnosis (1) Anemia due to chronic blood loss Is this a current diagnosis for this admission?: Yes (2) Lower GI bleed Is this a current diagnosis for this admission?: Yes (3) Essential hypertension Is this a current diagnosis for this admission?: Yes (4) CAD (coronary artery disease) Qualifiers: Coronary Disease-Associated Artery/Lesion type: [place] artery [place] vs. transplanted heart: [place] heart Associated angina: with unstable angina Qualified Code(s): I25.110 - Atherosclerotic heart disease of [place] coronary artery with unstable angina pectoris Is this a current diagnosis for this admission?: Yes (5) Chronic diastolic CHF (congestive heart failure) Is this a current diagnosis for this admission?: Yes (6) COPD (chronic obstructive pulmonary disease) Qualifiers: COPD type: unspecified COPD Qualified Code(s): J44.9 - Chronic obstructive pulmonary disease, unspecified Is this a current diagnosis for this admission?: Yes (7) Stercoral ulcer of rectum Is this a current diagnosis for this admission?: Yes (8) Senile debility Is this a current diagnosis for this admission?: Yes - Time Time Spent with patient: 25-34 minutes Medications reviewed and adjusted accordingly: Yes Anticipated discharge: SNF Within: Other - Inpatient Certification Based on my medical assessment, after consideration of the patient's comorbidities, presenting symptoms, or acuity I expect that the services needed warrant INPATIENT care.: Yes I certify that my determination is in accordance with my understanding of Medicare's requirements for reasonable and necessary INPATIENT services [42 CFR 412.3e].: Yes Medical Necessity: Significant Comorbidiites Make Outpatient Treatment Too Risky, Need Close Monitoring Due to Risk of Patient Decompensation, Need For IV Fluids, Need For Continuous Telemetry Monitoring, Need for Surgery, Risk of Complication if Not Cared For in Hospital, Risk of Diagnosis Which Will Require Inpatient Eval/Care/Monitoring Post Hospital Care: D/C Transcription Typist Documentation - Plan Summary Plan Summary: Patient was transfused 2 units PRBC so far today to drop of her hemoglobin to 8.3 gm/dL. She was seen in consultation by surgicalist and agreed to repeat colonoscopy tomorrow. Follow up on post transfusion CBC to access need for further transfusion.
[2019-01-21] MEDS ORDERED: FUROSEMIDE INJ/PF 20 MG/2 ML SDV ONE (19:54)
[2019-01-21 20:29] LABS: ABSOLUTE EOSINOPHILS # (AUTO) 0.1 10^3/uL (0.0-0.6); ABSOLUTE LYMPHOCYTES (AUTO) 1.5 10^3/uL (0.5-4.7); ABSOLUTE MONOCYTES (AUTO) 0.5 10^3/uL (0.1-1.4); ABSOLUTE NEUT (AUTO) 3.1 10^3/uL (1.7-8.2); BASOPHILS % (AUTO) 0.5 % (0-2); EOSINOPHILS % (AUTO) 1.9 % (0-6); HEMATOCRIT 38.4 % (36.0-47.0); LYMPHOCYTES % (AUTO) 28.3 % (13-45); MEAN CORPUSCULAR HEMOGLOBIN 27.9 pg (27.0-33.4); MEAN CORPUSCULAR HGB CONC 32.5 g/dL (32.0-36.0); MEAN CORPUSCULAR VOLUME 86 fl (80-97); PLATELET COUNT 203 10^3/uL (150-450); RED BLOOD COUNT 4.48 10^6/uL (3.72-5.28); RED CELL DISTRIBUTION WIDTH 15.8 % (11.5-14.0); SEGMENTED NEUTROPHILS % (AUTO) 59.3 % (42-78); TOTAL CELLS COUNTED % (AUTO) 100 %; WHITE BLOOD COUNT 5.2 10^3/uL (4.0-10.5)
[2019-01-21 20:31] LABS: HEMOGLOBIN 12.5 g/dL (12.0-15.5)
[2019-01-21] MEDS ORDERED: CARVEDILOL 12.5 MG TABLET PO ONE (22:00)
[2019-01-21] MEDS ORDERED: FUROSEMIDE INJ/PF 20 MG/2 ML SDV IV ONE (22:00)
[2019-01-21] MEDS: ATORVASTATIN CALCIUM 20 MG TABLET PO SCH (22:04)
[2019-01-21] MEDS: SERTRALINE HCL 50 MG TABLET PO SCH (22:04)
[2019-01-21] MEDS: DONEPEZIL HCL 5 MG TABLET PO SCH (22:06)
[2019-01-22] MEDS: PRIMIDONE 50 MG TABLET PO SCH ×3 (07:05→21:28)
[2019-01-22] MEDS: PANTOPRAZOLE SODIUM 40 MG TABLET.DR PO SCH (07:05)
[2019-01-22] MEDS: AMLODIPINE BESYLATE 10 MG TABLET PO SCH (08:28)
[2019-01-22] MEDS: LISINOPRIL 10 MG TABLET PO SCH (09:41)
[2019-01-22] MEDS: DOCUSATE SODIUM 100 MG CAPSULE PO SCH ×2 (09:41→17:29)
[2019-01-22] MEDS: CARVEDILOL 12.5 MG TABLET PO SCH ×2 (09:41→21:27)
[2019-01-22] MEDS: FERROUS SULFATE 325 MG TABLET PO SCH (09:41)
[2019-01-22] MEDS: CARBAMAZEPINE 200 MG TABLET PO SCH ×2 (09:42→21:29)
--- NOTE | 2019-01-22 11:25 | PDOC PROGRESS REPORT ---
Subjective Progress Note for:: 01/22/19 Subjective:: This is an 83-year-old female with a history of stercoral ulcers. She underwent colonoscopy approximately 1 month ago for diagnosis. The patient continues to have anemia. She was started on a bowel prep yesterday for possible re- colonoscopy today. The patient has refused to drink her bowel prep. She denies any active rectal bleeding at this time. She denies chest pain, shortness of breath, fevers, chills, abdominal pain, headache. Reason For Visit: SYMPTOMATIC ANEMIA WITH GENERALIZED WEAKNESS,LOWER Physical Exam Vital Signs: Temp Pulse Resp BP Pulse Ox 97.7 F 84 15 150/57 H 97 01/22/19 00:00 01/22/19 07:00 01/22/19 00:00 01/22/19 00:00 01/22/19 00:00 Intake & Output 01/21/19 01/22/19 01/23/19 06:59 06:59 06:59 Intake Total 640 1450 Output Total 700 Balance 640 750 Weight 69.5 kg 70.4 kg General appearance: PRESENT: no acute distress Head exam: PRESENT: atraumatic, normocephalic Eye exam: PRESENT: EOMI, PERRLA. ABSENT: scleral icterus Mouth exam: PRESENT: moist, neck supple Neck exam: ABSENT: tenderness, thyromegaly, tracheal deviation Respiratory exam: PRESENT: unlabored. ABSENT: chest wall tenderness, tachypnea Vascular exam: PRESENT: normal capillary refill GI/Abdominal exam: PRESENT: soft. ABSENT: distended, firm, guarding, tenderness Rectal exam: PRESENT: deferred Neurological exam: PRESENT: alert, awake, oriented to person, oriented to place, oriented to time, oriented to situation, CN II-XII grossly intact Psychiatric exam: ABSENT: agitated, anxious, depressed Skin exam: ABSENT: cyanosis, erythema, jaundice Results Laboratory Results: 01/21/19 20:15 01/15/19 06:23 01/21/19 01/21/19 09:23 20:15 WBC 5.2 RBC 4.48 Hgb 12.5 D Hct 38.4 MCV 86 MCH 27.9 MCHC 32.5 RDW 15.8 H Plt Count 203 Seg Neutrophils % 59.3 Blood Type O NEGATIVE Antibody Screen POSITIVE 01/14/19 15:51 Troponin I 0.014 Assessment & Plan - Diagnosis (1) Anemia Qualifiers: Anemia type: iron deficiency Iron deficiency anemia type: chronic blood loss Qualified Code(s): D50.0 - Iron deficiency anemia secondary to blood loss (chronic) Is this a current diagnosis for this admission?: Yes (2) Stercoral ulcer of rectum Is this a current diagnosis for this admission?: Yes - Time Time Spent with patient: 25-34 minutes - Plan Summary Plan Summary: This is an 83-year-old female with anemia and a stercoral ulcer. I have disc ussed the plan with the patient, her daughter, and her son. The patient does not want to drink the bowel prep for colonoscopy. The family has requested the colonoscopy not be performed. I had a long discussion with them, and this is a reasonable course of action. It is very unlikely that anything new will be found that can be treated via colonoscopy. The previous colonoscopy was performed approximately 1 month ago, there was a very good bowel prep, the colonoscopy was complete (it was performed all the way to the cecum), and biopsy shows benign disease. At this time, I do not believe the course will change with another colonoscopy. In light of all of this, I will allow the patient to eat. Recommend high-fiber diet, fiber supplementation twice daily, stool softeners (MiraLAX or Colace) twice daily, lubrication via fish oil or flaxseed oil twice daily. Surgery will sign off at this time. Please renotify with any new questions or concerns.
[2019-01-22] MEDS: FAMOTIDINE 20 MG TABLET PO SCH (17:29)
[2019-01-22] MEDS: PSYLLIUM SEED-SF 5.85 GM PACKET PO SCH (17:29)
[2019-01-22] MEDS: DONEPEZIL HCL 5 MG TABLET PO SCH (21:26)
[2019-01-22] MEDS: ATORVASTATIN CALCIUM 20 MG TABLET PO SCH (21:27)
[2019-01-22] MEDS: SERTRALINE HCL 50 MG TABLET PO SCH (21:27)
--- NOTE | 2019-01-22 23:35 | PDOC PROGRESS REPORT ---
Subjective Progress Note for:: 01/22/19 Subjective:: Patient refused preparation for recommended colonoscopy. Surgicalist discussion with patient and daughter is appreciated. Patient denied chest pain or difficulty with breathing. No nausea, vomiting, or abdominal pain. No dizziness or lightheadedness. Reason For Visit: SYMPTOMATIC ANEMIA WITH GENERALIZED WEAKNESS,LOWER Physical Exam Vital Signs: Temp Pulse Resp BP Pulse Ox 97.9 F 73 16 126/52 H 99 01/22/19 15:51 01/22/19 15:51 01/22/19 15:51 01/22/19 15:51 01/22/19 15:51 Intake & Output 01/21/19 01/22/19 01/23/19 06:59 06:59 06:59 Intake Total 640 1450 740 Output Total 700 400 Balance 640 750 340 Weight 69.5 kg 70.4 kg Physical Exam: General appearance: PRESENT: no acute distress, well-developed, well-nourished Head exam: PRESENT: atraumatic, normocephalic Eye exam: PRESENT: conjunctiva pink. ABSENT: pallor, scleral icterus Ear exam: PRESENT: normal external ear exam Mouth exam: PRESENT: moist Respiratory exam: PRESENT: clear to auscultation ulysses, decreased breath sounds - at lung bases Cardiovascular exam: PRESENT: RRR. ABSENT: diastolic murmur, rubs, systolic murmur GI/Abdominal exam: PRESENT: normal bowel sounds, soft. ABSENT: distended, guarding, mass, organomegaly, rebound, tenderness Extremities exam: PRESENT: Left upper extremity post mastectomy lymphedema. ABSENT: pedal edema Musculoskeletal exam: PRESENT: deformity - related to multiple joints involvement with arthritis Neurological exam: PRESENT: alert, awake, oriented to situation Psychiatric exam: PRESENT: appropriate affect, normal mood. ABSENT: homicidal ideation, suicidal ideation Skin exam: PRESENT: dry, warm Results Laboratory Results: 01/21/19 20:15 01/15/19 06:23 01/21/19 20:15 WBC 5.2 RBC 4.48 Hgb 12.5 D Hct 38.4 MCV 86 MCH 27.9 MCHC 32.5 RDW 15.8 H Plt Count 203 Seg Neutrophils % 59.3 01/14/19 15:51 Troponin I 0.014 Assessment & Plan - Diagnosis (1) Anemia due to chronic blood loss Is this a current diagnosis for this admission?: Yes (2) Lower GI bleed Is this a current diagnosis for this admission?: Yes (3) Essential hypertension Is this a current diagnosis for this admission?: Yes (4) CAD (coronary artery disease) Qualifiers: Coronary Disease-Associated Artery/Lesion type: [place] artery [place] vs. transplanted heart: [place] heart Associated angina: with unstable angina Qualified Code(s): I25.110 - Atherosclerotic heart disease of [place] coronary artery with unstable angina pectoris Is this a current diagnosis for this admission?: Yes (5) Chronic diastolic CHF (congestive heart failure) Is this a current diagnosis for this admission?: Yes (6) COPD (chronic obstructive pulmonary disease) Qualifiers: COPD type: unspecified COPD Qualified Code(s): J44.9 - Chronic obstructive pulmonary disease, unspecified Is this a current diagnosis for this admission?: Yes (7) Stercoral ulcer of rectum Is this a current diagnosis for this admission?: Yes (8) Senile debility Is this a current diagnosis for this admission?: Yes - Time Time Spent with patient: 25-34 minutes Level of Care: MEDICAL Medications reviewed and adjusted accordingly: Yes Within: Other - Inpatient Certification Based on my medical assessment, after consideration of the patient's comorbidities, presenting symptoms, or acuity I expect that the services needed warrant INPATIENT care.: Yes I certify that my determination is in accordance with my understanding of Medicare's requirements for reasonable and necessary INPATIENT services [42 CFR 412.3e].: Yes Medical Necessity: Significant Comorbidiites Make Outpatient Treatment Too Risky, Need Close Monitoring Due to Risk of Patient Decompensation, Need For IV Fluids, Risk of Complication if Not Cared For in Hospital, Risk of Diagnosis Which Will Require Inpatient Eval/Care/Monitoring Post Hospital Care: D/C or Transfer Summary - Plan Summary Plan Summary: Continue current medication management. Possible transfer to SNF for physical rehabilitation.
[2019-01-23] MEDS: PANTOPRAZOLE SODIUM 40 MG TABLET.DR PO SCH (05:26)
[2019-01-23] MEDS: PRIMIDONE 50 MG TABLET PO SCH ×2 (05:26→16:52)
[2019-01-23] MEDS: AMLODIPINE BESYLATE 10 MG TABLET PO SCH (08:19)
--- NOTE | 2019-01-23 08:36 | PDOC TRANSFER SUMMARY ---
Impression - Admit/DC Date/PCP Admission Date/Primary Care Provider: 01/14/19 17:46 MARISSA PHAM Discharge Date: 01/23/19 - Discharge Diagnosis (1) Anemia due to chronic blood loss Is this a current diagnosis for this admission?: Yes (2) Lower GI bleed Is this a current diagnosis for this admission?: Yes (3) Stercoral ulcer of rectum Is this a current diagnosis for this admission?: Yes (4) Essential hypertension Is this a current diagnosis for this admission?: Yes (5) CAD (coronary artery disease) Is this a current diagnosis for this admission?: Yes (6) Chronic diastolic CHF (congestive heart failure) Is this a current diagnosis for this admission?: Yes (7) COPD (chronic obstructive pulmonary disease) Is this a current diagnosis for this admission?: Yes (8) Senile debility Is this a current diagnosis for this admission?: Yes - Additional Information Resuscitation Status: Do Not Resuscitate Referrals: MARISSA PHAM MD [Primary Care Provider] - Follow up as needed (call office for follow up appointment bfore discharge from [facility].) KYE RANGEL MD [ACTIVE STAFF] - Home Medications: Amlodipine Besylate [Norvasc 10 mg Tablet] 10 mg PO QAM 11/24/18 Carbamazepine [Tegretol 200 mg Tablet] 400 mg PO BID 11/24/18 Carvedilol [Coreg 25 mg Tablet] 25 mg PO Q12 11/24/18 Donepezil HCl [Aricept 5 mg Tablet] 5 mg PO QHS 11/24/18 Ferrous Sulfate [Feosol 325 mg Tablet] 325 mg PO DAILY 11/24/18 Oxycodone HCl [Oxy-Ir 5 mg Tablet] 5 mg PO Q8HP PRN 11/24/18 Primidone [Mysoline] 100 mg PO TID 11/24/18 Ranitidine HCl [Zantac] 300 mg PO WSUPPER 11/24/18 Rosuvastatin Calcium [Crestor 10 mg Tablet] 10 mg PO QHS 11/24/18 Sertraline HCl [Zoloft 50 mg Tablet] 50 mg PO QHS 11/24/18 Lisinopril [Prinivil 10 mg Tablet] 10 mg PO DAILY #30 tablet 11/26/18 Sucralfate [Carafate 1 gm Tablet] 1 tab PO QID 12/12/18 Menthol/Zinc Oxide [Calmoseptine Ointment] 1 applic TP DAILY 01/14/19 Docusate Sodium [Colace 100 mg Capsule] 100 mg PO BID #0 01/23/19 Polyethylene Glycol 3350 [Miralax Powder 17 gm/Packet] 1 packet PO DAILY #0 01/23/19 History of Present Illiness History of Present Illness: BERNABE DOMRAN is a 83 year old female known to my practice currently a resident at [facility] who was transferred to the ED due continue complain of generalized weakness and finding of worsening hemoglobin on her most recent CBC. Patient reported tat she had episodes of diarrhea that lasted about 2 weeks with tarry stool. She was on Miralax and Colace following colonoscopy that was completed by Dr Rangel due to episode of lower GI bleed. She reported that her colonoscopy was normal except for area of rectal region with ulcer and possible site of her lower GI bleed. She reported subsequent normal recuperation until about 2 weeks ago when she stared having diarrhea. She denied any associated chest pain or difficulty with breathing., No nausea, vomiting or abdominal pain. There was reduced P.O intake related to dislike of served food. She denied any fever or chills. She denied any significant genitourinary symptoms to suggest ongoing infection. Her initial assessment in the ED revealed significant anemia with hemoglobin at 6.8 g/dL down from 10.0 g/dL on 12/08/2018. She was advised hospitalization for further evaluation and management. She will be seen in consultation by Dr. Bland, on-call surgicalist, for evaluation of any surgical intervention need at this time. Her morbidities are as listed below. Hospital Course Hospital Course: Patient was transfused total 4 units PRBC during this hospitalization. She was seen in consultation by the surgical team for possible colonoscopy due to continue bleeding during this hospitalization. Patient and family declined recommended procedure. Her hemoglobin is better currently but there is concern that it may drop very soon and high risk of readmission. She was seen by physical therapist during this hospitalization and her evaluation revealed need for walking assistance device and two persons assist to ambulate. She will be discharged back to [facility] for continue need for physical rehabilitation and possible short tem extended stay. Physical Exam Vital Signs: Temp Pulse Resp BP Pulse Ox 97.9 F 74 16 126/52 H 99 01/22/19 15:51 01/23/19 02:00 01/22/19 15:51 01/22/19 15:51 01/22/19 15:51 Intake & Output 01/22/19 01/23/19 01/24/19 06:59 06:59 06:59 Intake Total 1450 740 Output Total 700 825 Balance 750 -85 Weight 70.4 kg 71.1 kg General appearance: PRESENT: no acute distress, well-developed, well-nourished Head exam: PRESENT: atraumatic, normocephalic Eye exam: PRESENT: conjunctiva pink. ABSENT: pallor, scleral icterus Ear exam: PRESENT: normal external ear exam Mouth exam: PRESENT: moist Respiratory exam: PRESENT: clear to auscultation ulysses, decreased breath sounds - at lung bases Cardiovascular exam: PRESENT: RRR. ABSENT: diastolic murmur, rubs, systolic murmur GI/Abdominal exam: PRESENT: normal bowel sounds, soft. ABSENT: distended, guarding, mass, organomegaly, rebound, tenderness Extremities exam: PRESENT: Left upper extremity post mastectomy lymphedema. ABSENT: pedal edema Musculoskeletal exam: PRESENT: deformity - related to multiple joints involvement with arthritis Neurological exam: PRESENT: alert, awake, oriented to situation Psychiatric exam: PRESENT: appropriate affect, normal mood. ABSENT: homicidal ideation, suicidal ideation Skin exam: PRESENT: dry, warm Results Laboratory Results: WBC 5.2 10^3/uL (4.0-10.5) 01/21/19 20:15 RBC 4.48 10^6/uL (3.72-5.28) 01/21/19 20:15 Hgb 12.5 g/dL (12.0-15.5) D 01/21/19 20:15 Hct 38.4 % (36.0-47.0) 01/21/19 20:15 MCV 86 fl (80-97) 01/21/19 20:15 MCH 27.9 pg (27.0-33.4) 01/21/19 20:15 MCHC 32.5 g/dL (32.0-36.0) 01/21/19 20:15 RDW 15.8 % (11.5-14.0) H 01/21/19 20:15 Plt Count 203 10^3/uL (150-450) 01/21/19 20:15 Lymph % (Auto) 28.3 % (13-45) 01/21/19 20:15 [place] % (Auto) 10.0 % (3-13) 01/21/19 20:15 Eos % (Auto) 1.9 % (0-6) 01/21/19 20:15 Baso % (Auto) 0.5 % (0-2) 01/21/19 20:15 Absolute Neuts (auto) 3.1 10^3/uL (1.7-8.2) 01/21/19 20:15 Absolute Lymphs (auto) 1.5 10^3/uL (0.5-4.7) 01/21/19 20:15 Absolute Monos (auto) 0.5 10^3/uL (0.1-1.4) 01/21/19 20:15 Absolute Eos (auto) 0.1 10^3/uL (0.0-0.6) 01/21/19 20:15 Absolute Basos (auto) 0.0 10^3/uL (0.0-0.2) 01/21/19 20:15 Seg Neutrophils % 59.3 % (42-78) 01/21/19 20:15 Sodium 138.5 mmol/L (137-145) 01/15/19 06:23 Potassium 4.1 mmol/L (3.6-5.0) 01/15/19 06:23 Chloride 108 mmol/L (98-107) H 01/15/19 06:23 Carbon Dioxide 25 mmol/L (22-30) 01/15/19 06:23 Anion Gap 6 (5-19) 01/15/19 06:23 BUN 18 mg/dL (7-20) 01/15/19 06:23 Creatinine 0.92 mg/dL (0.52-1.25) 01/15/19 06:23 Est GFR ( Amer) > 60 (>60) 01/15/19 06:23 Est GFR (MDRD) Non-Af 58 (>60) L 01/15/19 06:23 Glucose 87 mg/dL (75-110) 01/15/19 06:23 Calcium 8.7 mg/dL (8.4-10.2) 01/15/19 06:23 Total Bilirubin 0.2 mg/dL (0.2-1.3) 01/15/19 06:23 Direct Bilirubin 0.1 mg/dL (0.0-0.4) 01/15/19 06:23 Neonat Total Bilirubin Not Reportable 01/15/19 06:23 Neonat Direct Bilirubin Not Reportable 01/15/19 06:23 Neonat Indirect Bili Not Reportable 01/15/19 06:23 AST 14 U/L (14-36) 01/15/19 06:23 ALT 7 U/L (<35) 01/15/19 06:23 Alkaline Phosphatase 76 U/L (38-126) 01/15/19 06:23 Troponin I 0.014 ng/mL 01/14/19 15:51 Total Protein 5.4 g/dL (6.3-8.2) L 01/15/19 06:23 Albumin 2.7 g/dL (3.5-5.0) L 01/15/19 06:23 POC Stool Occult Blood POSITIVE (NEGATIVE) 01/14/19 17:08 Blood Type O NEGATIVE 01/21/19 09:23 Antibody Screen POSITIVE 01/21/19 09:23 Antibody Identification Anti-D 01/21/19 09:23 Crossmatch See Detail 01/21/19 09:23 01/14/19 15:51 Troponin I 0.014 Plan Health Concerns: High risk of recurrent lower GI bleed and readmission. Plan of Treatment: Continue bowel regimen to keep stool consistency soft and avoid constipation. Monitor her hemoglobin closely. Goals: Maintain hemoglobin above transfusion level. Physiacl rehabilitation to level of being discharge home with walker assistance. Time Spent: Greater than 30 Minutes Stroke Is this a Stroke Patient?: No Acute Heart Failure - Is this a Heart Failure Patient?: No
[2019-01-23] MEDS: LISINOPRIL 10 MG TABLET PO SCH (10:47)
[2019-01-23] MEDS: PSYLLIUM SEED-SF 5.85 GM PACKET PO SCH (10:48)
[2019-01-23] MEDS: FERROUS SULFATE 325 MG TABLET PO SCH (10:48)
[2019-01-23] MEDS: CARVEDILOL 12.5 MG TABLET PO SCH (10:48)
[2019-01-23] MEDS: DOCUSATE SODIUM 100 MG CAPSULE PO SCH (10:48)
[2019-01-23] MEDS: CARBAMAZEPINE 200 MG TABLET PO SCH (10:50)
[2019-01-23] MEDS: FAMOTIDINE 20 MG TABLET PO SCH (16:51)
[2019-01-23] MEDS ORDERED: INFLUENZA QUAD (6MOS+) 2019-20 VAC 0.5 ML SYR IM ONE (16:58)
[2019-01-23 20:00] VITALS: BP 160/67
== END 2019-01-23 19:45 | DRG 378 ==
LOC: ER 15:20 → EH 17:46 → 4W 19:51 → 4S 01-15 12:53
PROVIDERS: ADMIT Internal Medicine Geriatric Medicine; ATTEND Internal Medicine Geriatric Medicine
PROC: 30233N1 Transfusion of Nonautologous Red Blood Cells into Peripheral Vein, Percutaneous Approach (ICD-10-PCS; principal; 2019-01-14)
PROC: 30233N1 Transfusion of Nonautologous Red Blood Cells into Peripheral Vein, Percutaneous Approach (ICD-10-PCS; 2019-01-21)
DX: K92.1 Melena (principal); K62.6 Ulcer of anus and rectum; I50.32 Chronic diastolic (congestive) heart failure; D50.0 Iron deficiency anemia secondary to blood loss (chronic); I25.10 Atherosclerotic heart disease of native coronary artery without angina pectoris; I25.2 Old myocardial infarction; I11.0 Hypertensive heart disease with heart failure; J44.9 Chronic obstructive pulmonary disease, unspecified; G47.30 Sleep apnea, unspecified; Z85.3 Personal history of malignant neoplasm of breast; Z85.118 Personal history of other malignant neoplasm of bronchus and lung; K21.9 Gastro-esophageal reflux disease without esophagitis; K44.9 Diaphragmatic hernia without obstruction or gangrene; M19.90 Unspecified osteoarthritis, unspecified site; Z95.1 Presence of aortocoronary bypass graft; Z90.710 Acquired absence of both cervix and uterus; Z96.641 Presence of right artificial hip joint; Z82.49 Family history of ischemic heart disease and other diseases of the circulatory system; Z90.12 Acquired absence of left breast and nipple
CPT/HCPCS: 36415; 36430; 80053; 84484; 85025; 86850; 86870; 86900; 86901; 86920; 86922; 90686; 93005; 93010; 99284; J1940; J3490; P9016

== ENCOUNTER 2019-03-06 04:48 | Inpatient (IN) | payer MEDICARE, OTHER ==
[2019-03-06 05:29] LABS: VENOUS BLOOD BASE EXCESS -0.4 mmol/L; VENOUS BLOOD HCO3 26.7 mmol/L (20-32); VENOUS BLOOD PCO2 55.9 mmHg (35-63); VENOUS BLOOD PH 7.3 (7.30-7.42)
[2019-03-06 05:30] LABS: ABSOLUTE LYMPHOCYTES (AUTO) 0.8 10^3/uL (0.5-4.7); ABSOLUTE MONOCYTES (AUTO) 0.6 10^3/uL (0.1-1.4); ABSOLUTE NEUT (AUTO) 7.8 10^3/uL (1.7-8.2); BASOPHILS % (AUTO) 0.2 % (0-2); EOSINOPHILS % (AUTO) 0.5 % (0-6); HEMATOCRIT 34.2 % (36.0-47.0); HEMOGLOBIN 10.9 g/dL (12.0-15.5); LYMPHOCYTES % (AUTO) 8.8 % (13-45); MEAN CORPUSCULAR HEMOGLOBIN 26.4 pg (27.0-33.4); MEAN CORPUSCULAR VOLUME 83 fl (80-97); MONOCYTES % (AUTO) 6.9 % (3-13); PLATELET COUNT 303 10^3/uL (150-450); RED BLOOD COUNT 4.14 10^6/uL (3.72-5.28); RED CELL DISTRIBUTION WIDTH 14.9 % (11.5-14.0); SEGMENTED NEUTROPHILS % (AUTO) 83.6 % (42-78); TOTAL CELLS COUNTED % (AUTO) 100 %; WHITE BLOOD COUNT 9.3 10^3/uL (4.0-10.5)
--- NOTE | 2019-03-06 05:50 | RADIOLOGY REPORT (SQ) ---
EXAM DESCRIPTION: XR CHEST 1 VIEW COMPLETED DATE/TME: 03/06/2019 05:04 CLINICAL HISTORY: 83 years, Female, hypoxia COMPARISON: 11/23/2018 chest NUMBER OF VIEWS: 1 TECHNIQUE: Portable chest LIMITATIONS: None. FINDINGS: The heart size is stable. Atheromatous change of the thoracic aorta. Osteopenia. Tiny bibasilar effusions and/or pleural thickening. Equivocal retrocardiac airspace opacity. Lungs are otherwise clear. No pneumothorax.. IMPRESSION: Tiny bibasilar effusions and/or pleural thickening. Equivocal retrocardiac airspace opacity. copyright 2010 [employer]- All Rights Reserved
--- NOTE | 2019-03-06 06:02 | ER Document Report ---
ED General - General TRAVEL OUTSIDE OF THE [place] IN LAST 30 DAYS: No - Related Data Home Medications: Aricept, Coreg, Iron, Lisinopril, Norvasc, Zantac, Zoloft <KECIA WINN - Last Filed: 03/06/19 06:48> <CIRO MOSS - Last Filed: 03/06/19 08:00> - General Stated Complaint: DYSPNEA Time Seen by Provider: 03/06/19 04:59 Primary Care Provider: CHERISE REGALADO MD [NO LOCAL MD] - Follow up as needed Notes: 83-year-old female brought in by EMS for shortness of breath. Patient states that she has been "sick" for the past several days and getting progressively worse. States that she has had a adductive cough and shortness of breath that got worse this evening. Admits a history of COPD and CHF. Denies any pain in her chest. Patient was on CPAP when she was brought in by EMS. Does not use oxygen at home. (KECIA WINN) - Related Data Allergies/Adverse Reactions: promethazine HCl [From Phenergan] Allergy (Verified 12/07/18 14:57) Past Medical History - General Information source: Patient, Emergency Med Personnel - Social History Smoking Status: Never Smoker Frequency of alcohol use: Rare Drug Abuse: None Family History: Reviewed & Not Pertinent, Hypertension Patient has suicidal ideation: No Patient has homicidal ideation: No - Past Medical History Cardiac Medical History: Reports: Hx Congestive Heart Failure, Hx Coronary Artery Disease, Hx Heart Attack - unsure, Hx Hypercholesterolemia, Hx Hypertension, Hx Heart Murmur Denies: Hx Atrial Fibrillation, Hx Peripheral Vascular Disease, Hx Pulmonary Embolism Pulmonary Medical History: Reports: Hx COPD, Hx Sleep Apnea Denies: Hx Asthma, Hx Bronchitis, Hx Pneumonia, Hx Respiratory Failure, Hx Tuberculosis Neurological Medical History: Denies: Hx Cerebrovascular Accident, Hx Seizures, Hx Parkinson's Disease Endocrine Medical History: Denies: Hx Graves' Disease, Hx Hyperthyroidism, Hx Hypothyroidism Renal/ Medical History: Denies: Hx End Stage Renal Disease, Hx Kidney Stones, Hx Ovarian Cysts, Hx Peritoneal Dialysis, Hx Pelvic Inflammatory Disease Malignancy Medical History: Reports: Hx Breast Cancer - left breast, Hx Lung Cancer - right lung nodules. Denies: Hx Cervical Cancer, Hx Leukemia, Hx Ovarian Cancer GI Medical History: Reports: Hx Gastroesophageal Reflux Disease, Hx Hiatal Hernia, Hx Ulcer. Denies: Hx Crohn's Disease, Hx Irritable Bowel, Hx Liver Failure, Hx Pancreatitis Musculoskeletal Medical History: Reports Hx Arthritis, Denies Hx Fibromyalgia, Denies Hx Multiple Sclerosis, Denies Hx Muscular Dystrophy, Denies Hx Systemic Lupus Erythematosus Psychiatric Medical History: Denies: Hx Bipolar Disorder, Hx Dementia, Hx Depression, Hx Post Traumatic Stress Disorder, Hx Schizophrenia Traumatic Medical History: Denies: Hx Fractures Infectious Medical History: Denies: Hx HIV Past Surgical History: Reports: Hx Abdominal Surgery, Hx Breast Surgery - Left mastectomy for breast cancer, Hx Cardiac Catheterization, Hx Cardiac Surgery, Hx Coronary Artery Bypass Graft - stent, Hx Coronary Stent, Hx Gynecologic Surgery - , Hx Hysterectomy, Hx Mastectomy - Left breast, Hx Orthopedic Surgery - right hip replacement. Denies: Hx Appendectomy, Hx Bowel Surgery, Hx Section, Hx Cholecystectomy, Hx Colostomy, Hx Gastric Bypass Surgery, Hx Herniorrhaphy, Hx Pacemaker, Hx Tonsillectomy, Hx Tubal Ligation - Immunizations Hx Diphtheria, Pertussis, Tetanus Vaccination: Yes Hx Pneumococcal Vaccination: 12/25/17 <KECIA WINN - Last Filed: 03/06/19 06:48> Review of Systems - Review of Systems Constitutional: See HPI, Malaise, Weakness EENT: No symptoms reported Cardiovascular: No symptoms reported Respiratory: See HPI, Cough -: Yes All other systems reviewed and negative <KECIA WINN - Last Filed: 03/06/19 06:48> Physical Exam - Vital signs Interpretation: Normal <KECIA WINN - Last Filed: 03/06/19 06:48> - Vital signs Vitals: Temp Pulse Ox 98.8 F 98 03/06/19 04:50 03/06/19 04:50 - Notes Notes: GENERAL: Alert, interacts well. HEAD: Normocephalic, atraumatic EYES: Pupils equal, round and reactive to light, extraocular movements intact. ENT: Oral mucosa moist, tongue midline. NECK: Full range of motion, supple, trachea midline. LUNGS: On CPAP, trace expiratory wheezing, no rales or rhonchi, mild respiratory distress. HEART: Regular rate and rhythm, no murmurs, gallops, rubs. ABDOMEN: Soft, nontender, nondistended, bowel sounds present in all 4 quadrants. EXTREMITIES: Moves all 4 extremities spontaneously, 1+ pitting edema at the level of the ankles, radial and dorsalis pedis pulses 2/4 bilaterally. No cyanosis. NEUROLOGICAL: Alert and oriented x3, normal speech, biceps and patellar DTRs 2+ bilaterally. PSYCH: Normal mood, normal affect. SKIN: Warm, Dry. (KECIA WINN) Course - Laboratory Result Diagrams: 03/06/19 05:10 03/06/19 05:10 <KECIA WINN - Last Filed: 03/06/19 06:48> - Laboratory Result Diagrams: 03/06/19 05:10 03/06/19 05:10 <CIRO MOSS - Last Filed: 03/06/19 08:00> - Re-evaluation Re-evalutation: 03/06/19 06:26 CBC shows anemia with hemoglobin 10.9, this is stable when compared to prior, venous blood gas grossly unremarkable, CMP shows improvement in renal function compared to prior, total and direct bilirubin are both elevated however the patient is not jaundiced, has no nausea and has no right upper quadrant tenderness to palpation, this should be monitored, troponin is detectable at 0.023 but not yet significant, proBNP markedly elevated at 43,800, chest x-ray shows some patchy infiltrates, no definitive pneumonia. Pneumonia does not fit the clinical picture as there is no fever and no leukocytosis. Clinical picture more consistent with acute congestive heart failure, she is feeling much better on BiPAP, patient is given Lasix 40 mg IV. I am awaiting Dr. Celaya's phone call back to further discuss this patient for possible admission. 03/06/19 06:43 After I had already reviewed the labs, lab reran the specimen as they stated it was initially hemolyzed, labs now reveal a completely normal total and direct bilirubin, other values still within normal limits, no change in the proBNP or cardiac enzymes. (KECIA WINN) - Vital Signs Vital signs: Temp Pulse Resp BP Pulse Ox 98.6 F 20 149/69 H 100 03/06/19 06:00 03/06/19 06:01 03/06/19 06:01 03/06/19 06:01 - Laboratory Laboratory results interpreted by me: 03/06/19 03/06/19 03/06/19 05:10 05:10 05:10 Hgb 10.9 L Hct 34.2 L MCH 26.4 L RDW 14.9 H Lymph % (Auto) 8.8 L Seg Neutrophils % 83.6 H Est GFR ( Amer) 55 L Est GFR (MDRD) Non-Af 45 L Glucose 124 H Alkaline Phosphatase 152 H Creatine Kinase < 20 L NT-Pro-B Natriuret Pep 49950 H - EKG Interpretation by Me Additional EKG results interpreted by me: 03/06/19 06:09 EKG shows sinus rhythm at a rate of 96, right bundle branch block, T wave inversions noted in V1, V2, V3, no ST segment elevations or depressions per my interpretation. No significant change since 01/14/2019 03/06/19 06:09 (KECIA WINN) Critical Care Note - Critical Care Note Total time excluding time spent on procedures (mins): 36 <KECIA WINN - Last Filed: 03/06/19 06:48> Discharge <KECIA WINN - Last Filed: 03/06/19 06:48> - Discharge Admitting Provider: [facility] Unit Admitted: [facility] <CIRO MOSS - Last Filed: 03/06/19 08:00> - Discharge Clinical Impression: Shortness of breath Congestive heart failure Qualifiers: Heart failure type: diastolic Heart failure chronicity: acute on chronic Qualified Code(s): I50.33 - Acute on chronic diastolic (congestive) heart failure Condition: Fair Disposition: ADMITTED INPATIENT Referrals: CHERISE REGALADO MD [NO LOCAL MD] - Follow up as needed
[2019-03-06 06:03] LABS: CREATINE KINASE MB 0.58 ng/mL (<4.55); TROPONIN I 0.023 ng/mL
[2019-03-06 06:21] LABS: BILIRUBIN,DIRECT 0.3 mg/dL (0.0-0.4)
[2019-03-06 06:22] LABS: CALCIUM 9.6 mg/dL (8.4-10.2)
[2019-03-06 06:23] LABS: BLOOD UREA NITROGEN 11 mg/dL (7-20); GLUCOSE 124 mg/dL (75-110)
[2019-03-06] MEDS ORDERED: FUROSEMIDE INJ/PF 40 MG/4 ML SDV IV ONE (06:23)
[2019-03-06 06:24] LABS: ALBUMIN 3.5 g/dL (3.5-5.0); ANION GAP 10 (5-19); CARBON DIOXIDE 29 mmol/L (22-30); CHLORIDE 100 mmol/L (98-107)
[2019-03-06 06:25] LABS: ALKALINE PHOSPHATASE 152 U/L (38-126); ASPARTATE AMINO TRANSFERASE 24 U/L (14-36)
[2019-03-06 06:26] LABS: BILIRUBIN,TOTAL 0.4 mg/dL (0.2-1.3); TOTAL PROTEIN 7.2 g/dL (6.3-8.2)
[2019-03-06 06:38] LABS: CREATINE KINASE < 20 U/L (30-135)
--- NOTE | 2019-03-06 07:58 | EKG REPORT ---
SEVERITY:- ABNORMAL ECG - SINUS RHYTHM RIGHT BUNDLE BRANCH BLOCK : Confirmed by: Scotty Augustin MD 06-Mar-2019 07:57:58
[2019-03-06] MEDS ORDERED: OXYCODONE HCL IR 5 MG TABLET PO PRN (15:50)
[2019-03-06] MEDS ORDERED: LEVALBUTEROL HCL NEB 0.63 MG/3 ML AMPUL NEB PRN (16:08)
--- NOTE | 2019-03-06 16:08 | PDOC H&P ---
History of Present Illness Admission Date/PCP: 03/06/19 08:05 MARISSA OSMONICAZoila Patient complains of: Difficulty with breathing History of Present Illness: BERNABE DORMAN is a 83 year old female patient known to my practice who present to the ED via EMS due to worsening shortness of breath, coughing, and generalized weakness and fatigue. Patient reported ongoing symptoms for several days. She reported associated occasional palpitation particularly with efforts. She denied any associated chest pain or new onset leg swelling. She admitted to difficulty laying in bed without pillows but denied PND. She has history of CHF but claimed compliance with her medication and dietary restrictions. She denied any alcohol abuse of illicit drug usage. She responded to CPAP support en route to the ED and since arrival has been n BiPAP with improvement with her breath ing. Her evaluation did revealed elevated NT Pro-BNP at above 42,000. Her morbidities are as listed below. She was advised hospitalization for further evaluation and management. Past Medical History Cardiac Medical History: Reports: Congestive Heart Failure, Coronary Artery Disease, Myocardial Infarction - unsure, Hyperlipidema, Hypertension, Heart Murmur Denies: Atrial Fibrillation, Peripheral Vascular Disease, Pulmonary Embolism Pulmonary Medical History: Reports: Chronic Obstructive Pulmonary Disease (COPD), Sleep Apnea Denies: Asthma, Bronchitis, Pneumonia, Respiratory Failure, Tuberculosis Neurological Medical History: Denies: Seizures Endocrine Medical History: Denies: Hyperthyroidism, Hypothyroidism Renal/ Medical History: Denies: End Stage Renal Disease Malignancy Medical History: Reports: Breast Cancer - left breast, Lung Cancer - right lung nodules Denies: Cervical Cancer, Leukemia, Ovarian Cancer GI Medical History: Reports: Gastroesophageal Reflux Disease, Hiatal Hernia Denies: Crohn's Disease Musculoskeltal Medical History: Reports: Arthritis Denies: Fibromyalgia Psychiatric Medical History: Denies: Bipolar Disorder, Dementia, Depression, Post Traumatic Stress Disorder Hematology: Reports: Anemia Denies: Hemophilia, Sickle Cell Disease Infectious Medical History: Denies: HIV Past Surgical History Past Surgical History: Reports: Cardiac Catheterization, Coronary Artery Bypass Graft - stent, Coronary Stent, Hysterectomy, Mastectomy - Left breast, Orthopedic Surgery - right hip replacement Denies: Amputation, Appendectomy, Section, Cholecystectomy, Colostomy, Gastric Bypass Surgery, Herniorrhaphy, Pacemaker, Tonsillectomy, Tubal Ligation Social History Smoking Status: Never Smoker Frequency of Alcohol Use: None Hx Recreational Drug Use: No Drugs: None Hx Prescription Drug Abuse: No - Advance Directive Resuscitation Status: Full Code Family History Family History: Reviewed & Not Pertinent, Hypertension Parental Family History Reviewed: Yes Children Family History Reviewed: Yes Sibling(s) Family History Reviewed.: Yes Medication/Allergy Home Medications: Amlodipine Besylate [Norvasc 10 mg Tablet] 10 mg PO DAILY 03/06/19 Carbamazepine [Tegretol 200 Mg Tablet] 400 mg PO Q12 03/06/19 Carvedilol [Coreg 25 mg Tablet] 25 mg PO Q12 03/06/19 Docusate Sodium [Colace 100 mg Capsule] 100 mg PO BID 03/06/19 Donepezil HCl [Aricept 5 mg Tablet] 5 mg PO QHS 03/06/19 Ferrous Sulfate [Iron] 325 mg PO DAILY 03/06/19 Flaxseed Oil [Flax Seed Oil] 1,000 mg PO DAILY 03/06/19 Lisinopril [Prinivil 10 mg Tablet] 10 mg PO DAILY 03/06/19 Oxycodone HCl [Oxy-Ir 5 mg Tablet] 5 mg PO Q8HP PRN 03/06/19 Polyethylene Glycol 3350 [Miralax Powder 17 gm/Packet] 1 packet PO DAILY 03/06/19 Primidone [Mysoline 50 Mg Tablet] 100 mg PO QID 03/06/19 Psyllium Husk (with Sugar) [Metamucil Packet] 1 packet PO BID 03/06/19 Ranitidine HCl [Zantac] 300 mg PO QHS 03/06/19 Rosuvastatin Calcium [Crestor 10 mg Tablet] 10 mg PO QHS 03/06/19 Sertraline HCl [Zoloft 50 mg Tablet] 50 mg PO QHS 03/06/19 Sucralfate [Carafate 1 gm Tablet] 1 gm PO QID 03/06/19 Allergies/Adverse Reactions: promethazine HCl [From Phenergan] Allergy (Verified 12/07/18 14:57) Review of Systems Constitutional: PRESENT: fatigue, weakness Eyes: ABSENT: visual disturbances Ears: ABSENT: hearing changes Nose, Mouth, and Throat: ABSENT: as per HPI, headache(s), mouth pain, sore throat, vertigo, other Cardiovascular: PRESENT: dyspnea on exertion, orthropnea, palpitations Respiratory: PRESENT: cough, dyspnea Gastrointestinal: ABSENT: abdominal pain, constipation, diarrhea, hematemesis, hematochezia, nausea, vomiting Genitourinary: ABSENT: dysuria, hematuria Musculoskeletal: ABSENT: joint swelling Integumentary: ABSENT: rash, wounds Neurological: ABSENT: abnormal gait, abnormal speech, confusion, dizziness, focal weakness, syncope Psychiatric: ABSENT: anxiety, depression, homidical ideation, suicidal ideation Endocrine: ABSENT: cold intolerance, heat intolerance, menstrual abnormalities, polydipsia, polyuria Hematologic/Lymphatic: ABSENT: easy bleeding, easy bruising, lymphadenopathy Allergic/Immunologic: ABSENT: seasonal rhinorrhea Physical Exam Vital Signs: Temp Pulse Resp BP Pulse Ox 97.4 F 88 26 H 174/84 H 93 03/06/19 10:08 03/06/19 10:08 03/06/19 14:43 03/06/19 10:08 03/06/19 14:43 Intake & Output 03/05/19 03/06/19 03/07/19 06:59 06:59 06:59 Intake Total 0 Balance 0 Weight 70.8 kg 76.2 kg General appearance: PRESENT: mild distress - with BiPAP usage Head exam: PRESENT: atraumatic, normocephalic Eye exam: PRESENT: conjunctiva pink, EOMI, PERRLA. ABSENT: scleral icterus Ear exam: PRESENT: normal external ear exam Mouth exam: PRESENT: moist Respiratory exam: PRESENT: decreased breath sounds - at lung bases Cardiovascular exam: PRESENT: +S1, +S2, systolic murmur, tachycardia. ABSENT: diastolic murmur, gallop Vascular exam: ABSENT: pallor GI/Abdominal exam: PRESENT: normal bowel sounds, soft. ABSENT: distended, guar ding, mass, organolmegaly, rebound, tenderness Rectal exam: PRESENT: deferred Extremities exam: PRESENT: pedal edema - left upper exytremity from lymphedema s/p mastectomy Neurological exam: PRESENT: alert, awake, oriented to person, oriented to place, oriented to time, oriented to situation, CN II-XII grossly intact. ABSENT: motor sensory deficit Psychiatric exam: PRESENT: appropriate affect, normal mood. ABSENT: homicidal ideation, suicidal ideation Skin exam: PRESENT: dry, warm Results Laboratory Results: 03/06/19 05:10 03/06/19 05:10 03/06/19 03/06/19 03/06/19 05:10 05:10 05:10 WBC 9.3 RBC 4.14 Hgb 10.9 L Hct 34.2 L MCV 83 MCH 26.4 L MCHC 32.0 RDW 14.9 H Plt Count 303 Seg Neutrophils % 83.6 H VBG pH 7.30 VBG pCO2 55.9 VBG HCO3 26.7 VBG Base Excess -0.4 Sodium 138.8 Potassium 4.0 Chloride 100 Carbon Dioxide 29 Anion Gap 10 BUN 11 Creatinine 1.15 Est GFR ( Amer) 55 L Glucose 124 H Calcium 9.6 Total Bilirubin 0.4 AST 24 Alkaline Phosphatase 152 H Total Protein 7.2 Albumin 3.5 03/06/19 03/06/19 03/06/19 05:10 05:10 08:15 Creatine Kinase < 20 L CK-MB (CK-2) 0.58 Troponin I 0.023 0.034 NT-Pro-B Natriuret Pep 12438 H Impressions: Chest X-Ray 03/06/19 05:04 IMPRESSION: Tiny bibasilar effusions and/or pleural thickening. Equivocal retrocardiac airspace opacity. copyright 2011 [employer] All Rights Reserved Assessment & Plan - Diagnosis (1) Acute CHF (congestive heart failure) Qualifiers: Heart failure type: diastolic Qualified Code(s): I50.31 - Acute diastolic (congestive) heart failure Is this a current diagnosis for this admission?: Yes Plan: See admitting attending physician orders for details of her care plan. (2) Chronic diastolic CHF (congestive heart failure) Is this a current diagnosis for this admission?: Yes Plan: See admitting attending physician orders for details of her care plan. (3) COPD (chronic obstructive pulmonary disease) Qualifiers: COPD type: unspecified COPD Qualified Code(s): J44.9 - Chronic obstructive pulmonary disease, unspecified Is this a current diagnosis for this admission?: Yes Plan: See admitting attending physician orders for details of her care plan. (4) Essential hypertension Is this a current diagnosis for this admission?: Yes Plan: See admitting attending physician orders for details of her care plan. (5) CAD (coronary artery disease) Qualifiers: Coronary Disease-Associated Artery/Lesion type: [place] artery [place] vs. transplanted heart: [place] heart Associated angina: with unstable angina Qualified Code(s): I25.110 - Atherosclerotic heart disease of [place] coronary artery with unstable angina pectoris Is this a current diagnosis for this admission?: Yes Plan: See admitting attending physician orders for details of her care plan. (6) Hyperlipidemia Qualifiers: Hyperlipidemia type: unspecified Qualified Code(s): E78.5 - Hyperlipidemia, unspecified Is this a current diagnosis for this admission?: Yes Plan: See admitting attending physician orders for details of her care plan. - Time Time Spent: 50 to 70 Minutes Medications reviewed and adjusted accordingly: Yes Anticipated discharge: Home with Homehealth - Inpatient Certification Based on my medical assessment, after consideration of the patient's comorbidities, presenting symptoms, or acuity I expect that the services needed warrant INPATIENT care.: Yes I certify that my determination is in accordance with my understanding of [facility]'s requirements for reasonable and necessary INPATIENT services [42 CFR 412.3e].: Yes Medical Necessity: Significant Comorbidiites Make Outpatient Treatment Too Risky, Need Close Monitoring Due to Risk of Patient Decompensation, Need For Continuous Telemetry Monitoring, Need for Nebulizer Therapy and Monitoring of Response, Risk of Complication if Not Cared For in Hospital, Risk of Diagnosis Which Will Require Inpatient Eval/Care/Monitoring Post Hospital Care: D/C Resident Care Assistant Documentation - Plan Summary Plan Summary: See admitting attending physician orders for details of her care plan.
[2019-03-06] MEDS ORDERED: [UNRECOGNIZED DRUG - OTHER] PO SCH (18:00)
[2019-03-06] MEDS ORDERED: PSYLLIUM HUSK PO SCH (18:00)
[2019-03-06] MEDS: SUCRALFATE 1 GM TABLET PO SCH ×2 (19:07→21:53)
[2019-03-06] MEDS: DOCUSATE SODIUM 100 MG CAPSULE PO SCH (19:08)
[2019-03-06] MEDS: PRIMIDONE 50 MG TABLET PO SCH ×2 (19:18→21:54)
[2019-03-06] MEDS: ATORVASTATIN CALCIUM 20 MG TABLET PO SCH (21:53)
[2019-03-06] MEDS: DONEPEZIL HCL 5 MG TABLET PO SCH (21:53)
[2019-03-06] MEDS: SERTRALINE HCL 50 MG TABLET PO SCH (21:53)
[2019-03-06] MEDS: FUROSEMIDE INJ/PF 40 MG/4 ML SDV IV SCH (21:54)
[2019-03-06] MEDS: CARBAMAZEPINE 200 MG TABLET PO SCH (21:54)
[2019-03-06] MEDS: CARVEDILOL 12.5 MG TABLET PO SCH (21:54)
[2019-03-06] MEDS: FAMOTIDINE 20 MG TABLET PO SCH (21:54)
[2019-03-06] MEDS ORDERED: (PENDING PHARMACY ID) (Ranitidine Hcl [Zantac] 300 MG) PO SCH (22:00)
[2019-03-07 05:04] LABS: ABSOLUTE MONOCYTES (AUTO) 0.7 10^3/uL (0.1-1.4); ABSOLUTE NEUT (AUTO) 3.9 10^3/uL (1.7-8.2); BASOPHILS % (AUTO) 0.2 % (0-2); HEMATOCRIT 30.6 % (36.0-47.0); LYMPHOCYTES % (AUTO) 18.1 % (13-45); MEAN CORPUSCULAR HEMOGLOBIN 26.5 pg (27.0-33.4); MEAN CORPUSCULAR HGB CONC 32.7 g/dL (32.0-36.0); MEAN CORPUSCULAR VOLUME 81 fl (80-97); MONOCYTES % (AUTO) 12.4 % (3-13); PLATELET COUNT 227 10^3/uL (150-450); RED BLOOD COUNT 3.78 10^6/uL (3.72-5.28); RED CELL DISTRIBUTION WIDTH 14.6 % (11.5-14.0); SEGMENTED NEUTROPHILS % (AUTO) 69.3 % (42-78); TOTAL CELLS COUNTED % (AUTO) 100 %; WHITE BLOOD COUNT 5.7 10^3/uL (4.0-10.5)
[2019-03-07 05:25] LABS: ALBUMIN 2.7 g/dL (3.5-5.0); ALKALINE PHOSPHATASE 111 U/L (38-126); ANION GAP 9 (5-19); ASPARTATE AMINO TRANSFERASE 17 U/L (14-36); BILIRUBIN,DIRECT 0.2 mg/dL (0.0-0.4); BILIRUBIN,TOTAL 0.3 mg/dL (0.2-1.3); BLOOD UREA NITROGEN 14 mg/dL (7-20); CALCIUM 8.7 mg/dL (8.4-10.2); CARBON DIOXIDE 29 mmol/L (22-30); CHLORIDE 101 mmol/L (98-107); GLUCOSE 88 mg/dL (75-110); POTASSIUM 3.4 mmol/L (3.6-5.0); TOTAL PROTEIN 5.8 g/dL (6.3-8.2)
[2019-03-07] MEDS: PANTOPRAZOLE SODIUM 40 MG TABLET.DR PO SCH (06:06)
[2019-03-07] MEDS ORDERED: POTASSIUM CHLORIDE 20 MEQ PACKET PO ONE (07:00)
--- NOTE | 2019-03-07 08:46 | PDOC PROGRESS REPORT ---
Subjective Progress Note for:: 03/07/19 Subjective:: Patient was admitted yesterday because of the acute congestive heart failure COPD Patient was put on the BiPAP Patient is currently off the BiPAP according to nursing staff doing well Patient's denied any chest pain no short of breath but patient is very weak Reason For Visit: ACUTE CHF Physical Exam Vital Signs: Temp Pulse Resp BP Pulse Ox 98.5 F 72 20 136/54 H 91 L 03/07/19 07:05 03/07/19 07:05 03/07/19 07:05 03/07/19 07:05 03/07/19 07:05 Intake & Output 03/06/19 03/07/19 03/08/19 06:59 06:59 06:59 Intake Total 0 Output Total 0 Balance 0 Weight 70.8 kg 69 kg General appearance: PRESENT: no acute distress, thin Head exam: PRESENT: atraumatic, normocephalic Eye exam: PRESENT: conjunctiva pink, EOMI, PERRLA. ABSENT: scleral icterus Ear exam: PRESENT: normal external ear exam Mouth exam: PRESENT: moist, tongue midline Neck exam: PRESENT: full ROM. ABSENT: carotid bruit, JVD, lymphadenopathy, thyromegaly Respiratory exam: PRESENT: decreased breath sounds, rhonchi Cardiovascular exam: PRESENT: RRR. ABSENT: diastolic murmur, rubs, systolic murmur Pulses: PRESENT: normal dorsalis pedis pul, +2 pedal pulses bilateral Vascular exam: PRESENT: normal capillary refill GI/Abdominal exam: PRESENT: normal bowel sounds, soft. ABSENT: distended, guarding, mass, organolmegaly, rebound, tenderness Rectal exam: PRESENT: deferred Neurological exam: PRESENT: alert, awake, oriented to person, oriented to place. ABSENT: motor sensory deficit Psychiatric exam: PRESENT: appropriate affect, normal mood. ABSENT: homicidal ideation, suicidal ideation Skin exam: PRESENT: dry, intact, warm. ABSENT: cyanosis, rash Results Laboratory Results: 03/07/19 04:37 03/07/19 04:37 03/07/19 03/07/19 04:37 04:37 WBC 5.7 RBC 3.78 Hgb 10.0 L Hct 30.6 L MCV 81 MCH 26.5 L MCHC 32.7 RDW 14.6 H Plt Count 227 Seg Neutrophils % 69.3 Sodium 139.1 Potassium 3.4 L Chloride 101 Carbon Dioxide 29 Anion Gap 9 BUN 14 Creatinine 0.97 Est GFR ( Amer) > 60 Glucose 88 Calcium 8.7 Magnesium 1.8 Total Bilirubin 0.3 AST 17 Alkaline Phosphatase 111 Total Protein 5.8 L Albumin 2.7 L 03/06/19 03/06/19 03/06/19 05:10 05:10 08:15 Creatine Kinase < 20 L CK-MB (CK-2) 0.58 Troponin I 0.023 0.034 NT-Pro-B Natriuret Pep [id number] H Impressions: Chest X-Ray 03/06/19 05:04 IMPRESSION: Tiny bibasilar effusions and/or pleural thickening. Equivocal retrocardiac airspace opacity. copyright 2010 [employer]- All Rights Reserved Assessment & Plan - Diagnosis (1) Acute CHF (congestive heart failure) Qualifiers: Heart failure type: diastolic Qualified Code(s): I50.31 - Acute diastolic (congestive) heart failure Is this a current diagnosis for this admission?: Yes Plan: We will get the echocardiograms with the patient having some valvular heart disease continues to IV Lasix consult the cardiology (2) Shortness of breath Is this a current diagnosis for this admission?: Yes Plan: With the multifactorial due to the COPD and congestive heart failure (3) Anemia Qualifiers: Anemia type: iron deficiency Iron deficiency anemia type: chronic blood loss Qualified Code(s): D50.0 - Iron deficiency anemia secondary to blood loss (chronic) Is this a current diagnosis for this admission?: Yes Plan: Currently all stable (4) CAD (coronary artery disease) Qualifiers: Coronary Disease-Associated Artery/Lesion type: [place] artery [place] vs. transplanted heart: [place] heart Associated angina: with unstable angina Qu alified Code(s): I25.110 - Atherosclerotic heart disease of [place] coronary artery with unstable angina pectoris Is this a current diagnosis for this admission?: Yes (5) COPD (chronic obstructive pulmonary disease) Qualifiers: COPD type: unspecified COPD Qualified Code(s): J44.9 - Chronic obstructive pulmonary disease, unspecified Is this a current diagnosis for this admission?: Yes Plan: Continue some nebulizer treatments (6) Mitral regurgitation Qualifiers: Cardiac valve disease etiology: etiology unspecified Qualified Code(s): I34.0 - Nonrheumatic mitral (valve) insufficiency Is this a current diagnosis for this admission?: Yes Plan: Get the echocardiograms - Time Time Spent with patient: 15-24 minutes Level of Care: IMCU Medications reviewed and adjusted accordingly: Yes Anticipated discharge: SNF Within: Other - Plan Summary Plan Summary: We will get the ABG Repeat the chest x-ray Continue to IV Lasix Continues the nebulizer treatments Discussed with the pulmonary Dr. Chappell consult Dr. MARTINEZ The echocardiogram
[2019-03-07 09:56] LABS: ARTERIAL BLOOD BASE EXCESS 1.9 mmol/L; ARTERIAL BLOOD H2CO3 1.32 mmol/L (1.05-1.35); ARTERIAL BLOOD HCO3 26.9 mmol/L (20-24); ARTERIAL BLOOD O2 SATURATION 98.9 % (94-98); ARTERIAL BLOOD PCO2 43.9 mmHg (35-45); ARTERIAL BLOOD PH 7.41 (7.35-7.45); ARTERIAL BLOOD PO2 148.3 mmHg (80-100); ARTERIAL BLOOD TOTAL CO2 28.2 mmol/L (21-25)
[2019-03-07] MEDS ORDERED: (PENDING PHARMACY ID) (Flaxseed Oil [Flax Seed Oil] 1,000 MG) PO SCH (10:00)
[2019-03-07 10:04] LABS: ARTERIAL BLOOD FIO2 32%
[2019-03-07] MEDS: POLYETHYLENE GLYCOL 3350 POWDER 17 GM/1 PACKET PO SCH (10:29)
[2019-03-07] MEDS: LISINOPRIL 10 MG TABLET PO SCH (10:29)
[2019-03-07] MEDS: SUCRALFATE 1 GM TABLET PO SCH ×4 (10:30→22:28)
[2019-03-07] MEDS: DOCUSATE SODIUM 100 MG CAPSULE PO SCH ×2 (10:30→22:25)
[2019-03-07] MEDS: FERROUS SULFATE 325 MG TABLET PO SCH (10:30)
[2019-03-07] MEDS: CARVEDILOL 12.5 MG TABLET PO SCH ×2 (10:30→22:27)
[2019-03-07] MEDS: ENOXAPARIN SODIUM INJ 40 MG/0.4 ML DISP.SYRIN SUBCUT SCH (10:31)
[2019-03-07] MEDS: FUROSEMIDE INJ/PF 40 MG/4 ML SDV IV SCH ×2 (10:31→22:27)
[2019-03-07] MEDS: AMLODIPINE BESYLATE 10 MG TABLET PO SCH (10:31)
[2019-03-07] MEDS: CARBAMAZEPINE 200 MG TABLET PO SCH ×2 (10:44→22:27)
[2019-03-07] MEDS: PRIMIDONE 50 MG TABLET PO SCH ×4 (10:45→22:27)
--- NOTE | 2019-03-07 11:57 | RADIOLOGY REPORT (SQ) ---
EXAM DESCRIPTION: CHEST SINGLE VIEW COMPLETED DATE/TIME: 03/07/2019 11:36 am REASON FOR STUDY: chf/copd COMPARISON: 03/06/2019. NUMBER OF VIEWS: One view. TECHNIQUE: Single frontal radiographic view of the chest acquired. LIMITATIONS: None. FINDINGS: LUNGS AND PLEURA: Slight worsening basilar aeration. More consolidation left base with bi lateral effusions. Prominent central pulmonary vascularity with prominence of the hilar structures, chronic. No pneumothorax. MEDIASTINUM AND HILAR STRUCTURES: Stable cardiomegaly. HEART AND VASCULAR STRUCTURES: As above. BONES: No acute findings. HARDWARE: None in the chest. OTHER: No other significant finding. IMPRESSION: Worsening basilar aeration. TECHNICAL DOCUMENTATION: JOB ID: [id number] [employer]- All Rights Reserved Reading location - IP/workstation name: [email or web address]
--- NOTE | 2019-03-07 19:29 | PDOC CONSULTATION ---
Consultation-Blank Consultation: CARDIOLOGY CONSULTATION by Dr. Estefany Degroot on 03/07/2019. Patient seen at 2 PM on 03/07/2019. 60 minutes (patient more than 50% of time spent in direct patient care. HISTORY OF PRESENT ILLNESS: Patient is a very poor historian. Patient is a 83-year-old female with known history of hypertension prior history of congestive heart failure who was admitted with 3 to 4 days of increasing shortness of breath with PND and orthopnea. She denies any palpitations or chest pain or discomfort. She initially was treated with BiPAP and is now improved a little but still appears to be short of breath. She denies any anginal symptoms. She denies any leg edema. She denies any syncope. She denie s history of COPD or asthma or sleep apnea. She has a history of coronary artery disease but no history of anginal symptoms. She says she has had an RI in the past. The patient is not a reliable historian. Past Medical History Cardiac Medical History: Reports: Congestive Heart Failure, Coronary Artery Disease, Myocardial Infarction - unsure, Hyperlipidema, Hypertension, Heart Murmur Denies: Atrial Fibrillation, Peripheral Vascular Disease, Pulmonary Embolism Pulmonary Medical History: Reports: Chronic Obstructive Pulmonary Disease (COPD), Sleep Apnea Denies: Asthma, Bronchitis, Pneumonia, Respiratory Failure, Tuberculosis Neurological Medical History: Denies: Seizures Endocrine Medical History: Denies: Hyperthyroidism, Hypothyroidism Renal/ Medical History: Denies: End Stage Renal Disease Malignancy Medical History: Reports: Breast Cancer - left breast, Lung Cancer - right lung nodules Denies: Cervical Cancer, Leukemia, Ovarian Cancer GI Medical History: Reports: Gastroesophageal Reflux Disease, Hiatal Hernia Denies: Crohn's Disease Musculoskeltal Medical History: Reports: Arthritis Denies: Fibromyalgia Psychiatric Medical History: Denies: Bipolar Disorder, Dementia, Depression, Post Traumatic Stress Disorder Hematology: Reports: Anemia Denies: Hemophilia, Sickle Cell Disease Infectious Medical History: Denies: HIV Past Surgical History Past Surgical History: Reports: Cardiac Catheterization, Coronary Artery Bypass Graft - stent, Coronary Stent, Hysterectomy, Mastectomy - Left breast, Orthopedic Surgery - right hip replacement Denies: Amputation, Appendectomy, Section, Cholecystectomy, Colostomy, Gastric Bypass Surgery, Herniorrhaphy, Pacemaker, Tonsillectomy, Tubal Ligation Social History Smoking Status: Never Smoker Frequency of Alcohol Use: None Hx Recreational Drug Use: No Drugs: None Hx Prescription Drug Abuse: No - Advance Directive Resuscitation Status: Full Code. The patient's daughter Ms. Mcgee and the patient's son are both surrogate healthcare decision makers for the patient. Family History Family History: Reviewed & Not Pertinent, Hypertension Parental Family History Reviewed: Yes Children Family History Reviewed: Yes Sibling(s) Family History Reviewed.: Yes Medication/Allergy Home Medications: Amlodipine Besylate [Norvasc 10 mg Tablet] 10 mg PO DAILY 03/06/19 Carbamazepine [Tegretol 200 Mg Tablet] 400 mg PO Q12 03/06/19 Carvedilol [Coreg 25 mg Tablet] 25 mg PO Q12 03/06/19 Docusate Sodium [Colace 100 mg Capsule] 100 mg PO BID 03/06/19 Donepezil HCl [Aricept 5 mg Tablet] 5 mg PO QHS 03/06/19 Ferrous Sulfate [Iron] 325 mg PO DAILY 03/06/19 Flaxseed Oil [Flax Seed Oil] 1,000 mg PO DAILY 03/06/19 Lisinopril [Prinivil 10 mg Tablet] 10 mg PO DAILY 03/06/19 Oxycodone HCl [Oxy-Ir 5 mg Tablet] 5 mg PO Q8HP PRN 03/06/19 Polyethylene Glycol 3350 [Miralax Powder 17 gm/Packet] 1 packet PO DAILY 03/06/19 Primidone [Mysoline 50 Mg Tablet] 100 mg PO QID 03/06/19 Psyllium Husk (with Sugar) [Metamucil Packet] 1 packet PO BID 03/06/19 Ranitidine HCl [Zantac] 300 mg PO QHS 03/06/19 Rosuvastatin Calcium [Crestor 10 mg Tablet] 10 mg PO QHS 03/06/19 Sertraline HCl [Zoloft 50 mg Tablet] 50 mg PO QHS 03/06/19 Sucralfate [Carafate 1 gm Tablet] 1 gm PO QID 03/06/19 Allergies/Adverse Reactions: promethazine HCl [From Phenergan] Allergy (Verified 12/07/18 14:57). Review of Systems Constitutional: PRESENT: fatigue, weakness Eyes: ABSENT: visual disturbances Ears: ABSENT: hearing changes Nose, Mouth, and Throat: ABSENT: as per HPI, headache(s), mouth pain, sore throat, vertigo, other Cardiovascular: PRESENT: dyspnea on exertion, orthropnea, palpitations Respiratory: PRESENT: cough, dyspnea Gastrointestinal: ABSENT: abdominal pain, constipation, diarrhea, hematemesis, hematochezia, nausea, vomiting Genitourinary: ABSENT: dysuria, hematuria Musculoskeletal: ABSENT: joint swelling Integumentary: ABSENT: rash, wounds Neurological: ABSENT: abnormal gait, abnormal speech, confusion, dizziness, focal weakness, syncope Psychiatric: ABSENT: anxiety, depression, homidical ideation, suicidal ideation Endocrine: ABSENT: cold intolerance, heat intolerance, menstrual abnormalities, polydipsia, polyuria Hematologic/Lymphatic: ABSENT: easy bleeding, easy bruising, lymphadenopathy Allergic/Immunologic: ABSENT: seasonal rhinorrhea. Current Medications Generic Name Dose Route Start Last Admin Trade Name Freq PRN Reason Stop Dose Admin Amlodipine Besylate 10 mg 03/07/19 10:00 03/07/19 10:31 Norvasc 10 Mg Tablet PO 04/06/19 09:59 10 mg DAILY GRZEGORZ Administration Atorvastatin Calcium 20 mg 03/06/19 22:00 03/07/19 22:28 Lipitor 20 Mg Tablet PO 04/05/19 21:59 20 mg QHS GRZEGORZ Administration Carbamazepine 400 mg 03/06/19 22:00 03/07/19 22:27 Tegretol 200 Mg Tablet PO 04/05/19 21:59 400 mg Q12 GRZEGORZ Administration Carvedilol 25 mg 03/06/19 22:00 03/07/19 22:27 Coreg 12.5 Mg Tablet PO 04/05/19 21:59 25 mg Q12 GRZEGORZ Administration Docusate Sodium 100 mg 03/06/19 18:00 03/07/19 22:25 Colace 100 Mg Capsule PO 04/05/19 17:59 Not Given BID GRZEGORZ Donepezil HCl 5 mg 03/06/19 22:00 03/07/19 22:27 Aricept 5 Mg Tablet PO 04/05/19 21:59 5 mg QHS GRZEGORZ Administration Enoxaparin Sodium 40 mg 03/07/19 10:00 03/07/19 10:31 Lovenox Inj 40 Mg/0.4 Ml Disp.Syrin SUBCUT 04/06/19 09:59 40 mg DAILY GRZEGORZ Administration Famotidine 40 mg 03/06/19 22:00 03/07/19 22:27 Pepcid 20 Mg Tablet PO 04/05/19 21:59 40 mg QHS GRZEGORZ Administration Ferrous Sulfate 325 mg 03/07/19 10:00 03/07/19 10:30 Feosol 325 Mg Tablet PO 04/06/19 09:59 325 mg DAILY GRZEGORZ Administration Furosemide 40 mg 03/06/19 22:00 03/07/19 22:27 Lasix Inj/Pf 40 Mg/4 Ml Sdv IV 04/05/19 21:59 40 mg Q12 GRZEGORZ Administration Cefepime HCl 1 gm in 50 mls @ 100 mls/hr 03/07/19 22:00 03/07/19 22:27 Maxipime Rtu 1 Gm/D5w 50 Ml Premix Bag IV 03/14/19 21:59 100 ml/hr Q12 GRZEGORZ 100 mls/hr Administration Levalbuterol HCl 0.63 mg 03/06/19 16:08 Xopenex Neb 0.63 Mg/3 Ml Ampul NEB 04/05/19 16:07 RTQ4HP PRN SHORTNESS OF BREATH Lisinopril 10 mg 03/07/19 10:00 03/07/19 10:29 Prinivil 10 Mg Tablet PO 04/06/19 09:59 10 mg DAILY GRZEGORZ Administration Oxycodone HCl 5 mg 03/06/19 15:50 Oxy-Ir 5 Mg Tablet PO 03/13/19 15:49 Q8HP PRN FOR PAIN Pantoprazole Sodium 40 mg 03/07/19 06:00 03/07/19 06:[address] Tablet PO 04/06/19 05:59 40 mg Q6AM GRZEGORZ Administration Patient Own Medication 1,000 mg 03/07/19 10:00 Flaxseed Oil [Flax Seed Oil] PO 04/06/19 09:59 .DAILY GRZEGORZ Patient Own Medication 1 packet 03/06/19 18:00 Psyllium Husk (With Sugar) [Metamucil Packet] PO 04/05/19 17:59 .BID GRZEGORZ Polyethylene Glycol 17 gm 03/07/19 10:00 03/07/19 10:29 Miralax Powder 17 Gm/Packet PO 04/06/19 09:59 17 gm DAILY GRZEGORZ Administration Primidone 100 mg 03/06/19 18:00 03/07/19 22:27 Mysoline 50 Mg Tablet PO 04/05/19 17:59 100 mg QID GRZEGORZ Administration Sertraline HCl 50 mg 03/06/19 22:00 03/07/19 22:28 Zoloft 50 Mg Tablet PO 04/05/19 21:59 50 mg QHS GRZEGORZ Administration Sucralfate 1 gm 03/06/19 18:00 03/07/19 22:28 Carafate 1 Gm Tablet PO 04/05/19 17:59 1 gm QID GRZEGORZ Administration Discontinued Medications Generic Name Dose Route Start Last Admin Trade Name Erin PRN Reason Stop Dose Admin Furosemide 40 mg 03/06/19 06:23 03/06/19 06:31 Lasix Inj/Pf 40 Mg/4 Ml Sdv IV 03/06/19 06:24 40 mg NOW ONE Administration Potassium Chloride 40 meq 03/07/19 07:00 03/07/19 14:36 Potassium Chloride 20 Meq Packet PO 03/07/19 07:01 Not Given NOW ONE PHYSICAL EXAMINATION: Patient is a frail build and appears to be chronically ill. She is mildly short of breath. Selected Entries 03/07/19 14:43 Temperature 98.0 F Temperature Oral Source Pulse Rate 66 Respiratory 20 Rate Blood Pressure 98/43 L Blood Pressure 61 Mean BP Location Left Arm BP Position Supine O2 Sat by Pulse 97 Oximetry Oxygen Flow 3.00 Rate Oxygen Delivery Nasal Cannula Method HEAD: Is atraumatic normocephalic. EYES: Pupils pupils are equal round regular reactive to light and accommodation. Extraocular movements are normal. There is no conjunctival pallor. There is no scleral icterus. EARS: Tympanic membranes are intact. External canals are clear. NOSE: There is no deviated nasal septum. There is no inflammation of the nasal mucous membrane. MOUTH: Mucous membranes of mouth are moist. There is no ulcers. There is no bleeding from gums. THROAT: There is no redness of the oropharynx there is no exudates. Skin: There is no skin rashes there is no petechia or ecchymosis. NECK: Supple. There is mild JVD present. There is transmitted aortic regurgitation murmur heard over both carotids. There is no carotid bruit. There is mild carotid delay bilaterally. There is no lymphadenopathy. There is no goiter. There is no accessory muscle respiration use. LUNGS: There is absent breath sounds and dullness in both bases. There is also about this area few bibasilar rales of CHF. There is also bilateral dry crackles left more than right. The rest of the lungs are clear. HEART: S1-S2 is heard. There is no S3 gallop. There is no S4 gallop. There is systolic murmur left sternal border and the apex there is no rub. There is movement of aortic stenosis murmur. A2 is preserved. There is mild carotid delay. There is no aortic thrill felt. His murmur of mitral regurgitation and tricuspid regurgitation present. There is no rub. ABDOMEN: Soft. There is no hepatosplenomegaly. Bowel sounds are well heard. EXTREMITIES: Femorals are diminished. There is faint bilateral femoral bruits. Legs pulses diminished. There is no pedal edema. There is no DVT or cellulitis. There is no calf tenderness. ILLNESS: The patient is conscious awake, slightly drowsy but oriented x3. PSYCHIATRIC: Patient judgment insight seem to be intact. She is not agitated or anxious. EKG: Sinus rhythm. PVC. Right bundle branch block pattern. Labs- Entire Visit 03/06/19 03/06/19 03/06/19 05:10 05:10 05:10 WBC 9.3 RBC 4.14 Hgb 10.9 L Hct 34.2 L MCV 83 MCH 26.4 L MCHC 32.0 RDW 14.9 H Plt Count 303 Lymph % (Auto) 8.8 L Larue % (Auto) 6.9 Eos % (Auto) 0.5 Baso % (Auto) 0.2 Absolute Neuts (auto) 7.8 Absolute Lymphs (auto) 0.8 Absolute Monos (auto) 0.6 Absolute Eos (auto) 0.0 Absolute Basos (auto) 0.0 Seg Neutrophils % 83.6 H Carbonic Acid HCO3/H2CO3 Ratio ABG pH ABG pCO2 ABG pO2 ABG HCO3 ABG Total CO2 ABG O2 Saturation ABG Base Excess VBG pH VBG pCO2 VBG HCO3 VBG Base Excess FiO2 Sodium 138.8 Potassium 4.0 Chloride 100 Carbon Dioxide 29 Anion Gap 10 BUN 11 Creatinine 1.15 Est GFR ( Amer) 55 L Est GFR (MDRD) Non-Af 45 L Glucose 124 H Calcium 9.6 Magnesium Total Bilirubin 0.4 Direct Bilirubin 0.3 Neonat Total Bilirubin Not Reportable Neonat Direct Bilirubin Not Reportable Neonat Indirect Bili Not Reportable AST 24 ALT 13 Alkaline Phosphatase 152 H Creatine Kinase < 20 L CK-MB (CK-2) 0.58 Troponin I 0.023 NT-Pro-B Natriuret Pep 27237 H Total Protein 7.2 Albumin 3.5 03/06/19 03/06/19 03/07/19 05:10 08:15 04:37 WBC 5.7 RBC 3.78 Hgb 10.0 L Hct 30.6 L MCV 81 MCH 26.5 L MCHC 32.7 RDW 14.6 H Plt Count 227 Lymph % (Auto) 18.1 Larue % (Auto) 12.4 Eos % (Auto) 0.0 Baso % (Auto) 0.2 Absolute Neuts (auto) 3.9 Absolute Lymphs (auto) 1.0 Absolute Monos (auto) 0.7 Absolute Eos (auto) 0.0 Absolute Basos (auto) 0.0 Seg Neutrophils % 69.3 Carbonic Acid HCO3/H2CO3 Ratio ABG pH ABG pCO2 ABG pO2 ABG HCO3 ABG Total CO2 ABG O2 Saturation ABG Base Excess VBG pH 7.30 VBG pCO2 55.9 VBG HCO3 26.7 VBG Base Excess -0.4 FiO2 Sodium Potassium Chloride Carbon Dioxide Anion Gap BUN Creatinine Est GFR ( Amer) Est GFR (MDRD) Non-Af Glucose Calcium Magnesium Total Bilirubin Direct Bilirubin Neonat Total Bilirubin Neonat Direct Bilirubin Neonat Indirect Bili AST ALT Alkaline Phosphatase Creatine Kinase CK-MB (CK-2) Troponin I 0.034 NT-Pro-B Natriuret Pep Total Protein Albumin 03/07/19 03/07/19 04:37 09:35 WBC RBC Hgb Hct MCV MCH MCHC RDW Plt Count Lymph % (Auto) Larue % (Auto) Eos % (Auto) Baso % (Auto) Absolute Neuts (auto) Absolute Lymphs (auto) Absolute Monos (auto) Absolute Eos (auto) Absolute Basos (auto) Seg Neutrophils % Carbonic Acid 1.32 HCO3/H2CO3 Ratio 20:1 ABG pH 7.41 ABG pCO2 43.9 ABG pO2 148.3 H ABG HCO3 26.9 H ABG Total CO2 28.2 H ABG O2 Saturation 98.9 H ABG Base Excess 1.9 VBG pH VBG pCO2 VBG HCO3 VBG Base Excess FiO2 32% Sodium 139.1 Potassium 3.4 L Chloride 101 Carbon Dioxide 29 Anion Gap 9 BUN 14 Creatinine 0.97 Est GFR ( Amer) > 60 Est GFR (MDRD) Non-Af 55 L Glucose 88 Calcium 8.7 Magnesium 1.8 Total Bilirubin 0.3 Direct Bilirubin 0.2 Neonat Total Bilirubin Not Reportable Neonat Direct Bilirubin Not Reportable Neonat Indirect Bili Not Reportable AST 17 ALT 11 Alkaline Phosphatase 111 Creatine Kinase CK-MB (CK-2) Troponin I NT-Pro-B Natriuret Pep Total Protein 5.8 L Albumin 2.7 L Chest X-Ray 03/06/19 05:04 IMPRESSION: Tiny bibasilar effusions and/or pleural thickening. Equivocal retrocardiac airspace opacity. copyright 2010 [employer]- All Rights Reserved Chest X-Ray 03/07/19 00:00 IMPRESSION: Worsening basilar aeration. ECHO: There is normal left ventricular wall thickness. LV EF is 30% to 35% Left ventricular systolic function is moderate to severely reduced. LV diastolic function could not be adequately assessed. The right ventricle is mild to moderately dilated. The right atrium is mildly dilated. The left atrium is mildly dilated. There is moderate mitral annular calcification. There is no evidence of mitral valve prolapse. There is no vegetation seen on the mitral valve. There is no mitral valve stenosis. There is a moderate amount of mitral regurgitation There is no aortic valvular vegetation. There is moderate aortic stenosis There is a peak gradient of 39.5 mm of Hg. There is a mild to moderate amount of aortic regurgitation There is no tricuspid stenosis. There is a moderate amount of tricuspid regurgitation There is servere pulmonary hypertension by echo RVSP is at least 69.2 mm of Hg ,with RA mean of at least 20. There is no pulmonic valvular stenosis. There is a mild to moderate amount of pulmonic regurgitation The aortic root is normal size. The inferior vena cava appeared dilated and did not change with respiration (RAP > 20 mmHg) Small pericardial effusion. Moderate size left pleural effusion. IMPRESSION RECOMMENDATION: 1. Acute on chronic biventricular systolic failure. [Acute on chronic right ventricle (systolic failure]. 2. Cannot exclude left lower lobe pneumonia. 3. Aortic stenosis most likely moderate. But need to reassess the patient's aortic valve gradient if the patient EF improves. 4. 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 5. Hypertension: Blood pressure well controlled 6. Coronary artery disease by history: No angina no RI this admission. 7. Severe pulmonary hypertension: Most likely cause of the patient's right heart failure. Right heart failure is secondary to left heart failure. Causing significant pulmonary hypertension. And also secondary to valvular disease. 8. Moderate tricuspid regurgitation, and moderate mitral regurgitation. 9. Mild to moderate aortic regurgitation. .? COPD: Note pulmonary consult awaited. Agree with continuing the patient on current Lasix but will be cautious. We will try MIKE inhibitor low-dose. Later need to assess the aortic valve gradient to see if the patient would be a candidate for TAVR. We will try to get her records from other hospital. Medications adjusted. Medical decision making is of high complexity. Discussed with attending physician. Discussed at length the patient's condition with the patient's son Mr. Azael Campbell. Will follow
--- NOTE | 2019-03-07 21:40 | EKG REPORT ---
SEVERITY:- ABNORMAL ECG - SINUS RHYTHM VENTRICULAR PREMATURE COMPLEX RIGHT BUNDLE BRANCH BLOCK : Confirmed by: Scotty Augustin MD 07-Mar-2019 21:39:51
[2019-03-07] MEDS: DONEPEZIL HCL 5 MG TABLET PO SCH (22:27)
[2019-03-07] MEDS: CEFEPIME 1 GM/D5W RTU 1 GM/50 ML RTUPB IV SCH (22:27)
[2019-03-07] MEDS: FAMOTIDINE 20 MG TABLET PO SCH (22:27)
[2019-03-07] MEDS: SERTRALINE HCL 50 MG TABLET PO SCH (22:28)
[2019-03-07] MEDS: ATORVASTATIN CALCIUM 20 MG TABLET PO SCH (22:28)
[2019-03-08 04:58] LABS: ABSOLUTE LYMPHOCYTES (AUTO) 1.1 10^3/uL (0.5-4.7); ABSOLUTE MONOCYTES (AUTO) 0.5 10^3/uL (0.1-1.4); ABSOLUTE NEUT (AUTO) 2.7 10^3/uL (1.7-8.2); BASOPHILS % (AUTO) 0.3 % (0-2); EOSINOPHILS % (AUTO) 1.1 % (0-6); HEMATOCRIT 29.1 % (36.0-47.0); HEMOGLOBIN 9.5 g/dL (12.0-15.5); LYMPHOCYTES % (AUTO) 25.9 % (13-45); MEAN CORPUSCULAR HEMOGLOBIN 26.2 pg (27.0-33.4); MEAN CORPUSCULAR HGB CONC 32.4 g/dL (32.0-36.0); MEAN CORPUSCULAR VOLUME 81 fl (80-97); MONOCYTES % (AUTO) 11.1 % (3-13); PLATELET COUNT 251 10^3/uL (150-450); RED CELL DISTRIBUTION WIDTH 14.7 % (11.5-14.0); SEGMENTED NEUTROPHILS % (AUTO) 61.6 % (42-78); TOTAL CELLS COUNTED % (AUTO) 100 %; WHITE BLOOD COUNT 4.4 10^3/uL (4.0-10.5)
[2019-03-08 05:11] LABS: ANION GAP 7 (5-19); BLOOD UREA NITROGEN 24 mg/dL (7-20); CALCIUM 8.2 mg/dL (8.4-10.2); CARBON DIOXIDE 31 mmol/L (22-30); CHLORIDE 101 mmol/L (98-107); GLUCOSE 93 mg/dL (75-110); POTASSIUM 3.6 mmol/L (3.6-5.0)
[2019-03-08] MEDS: PANTOPRAZOLE SODIUM 40 MG TABLET.DR PO SCH (05:17)
[2019-03-08] MEDS: FUROSEMIDE INJ/PF 40 MG/4 ML SDV IV SCH ×2 (09:51→23:16)
[2019-03-08] MEDS: CARVEDILOL 12.5 MG TABLET PO SCH ×2 (09:51→23:16)
[2019-03-08] MEDS: AMLODIPINE BESYLATE 10 MG TABLET PO SCH (09:51)
[2019-03-08] MEDS: SUCRALFATE 1 GM TABLET PO SCH ×4 (09:51→23:14)
[2019-03-08] MEDS: FERROUS SULFATE 325 MG TABLET PO SCH (09:51)
[2019-03-08] MEDS: LISINOPRIL 10 MG TABLET PO SCH (09:52)
[2019-03-08] MEDS: ENOXAPARIN SODIUM INJ 40 MG/0.4 ML DISP.SYRIN SUBCUT SCH (09:52)
[2019-03-08] MEDS: DOCUSATE SODIUM 100 MG CAPSULE PO SCH ×2 (09:52→18:01)
[2019-03-08] MEDS: CEFEPIME 1 GM/D5W RTU 1 GM/50 ML RTUPB IV SCH ×2 (09:53→23:15)
[2019-03-08] MEDS: POLYETHYLENE GLYCOL 3350 POWDER 17 GM/1 PACKET PO SCH (09:53)
[2019-03-08] MEDS: PRIMIDONE 50 MG TABLET PO SCH ×4 (09:54→23:54)
[2019-03-08] MEDS: CARBAMAZEPINE 200 MG TABLET PO SCH ×2 (09:54→23:14)
--- NOTE | 2019-03-08 09:58 | PDOC PROGRESS REPORT ---
Subjective Progress Note for:: 03/08/19 Subjective:: Patient is currently doing well much better today compared to yesterday Patient echocardiogram suggest the systolic heart failure with low EF and aortic valve disorders Patient is currently seen by Dr. MARTINEZ Reason For Visit: ACUTE CHF Physical Exam Vital Signs: Temp Pulse Resp BP Pulse Ox 97.3 F 65 18 151/64 H 98 03/08/19 06:51 03/08/19 08:00 03/08/19 08:00 03/08/19 06:51 03/08/19 08:00 Intake & Output 03/07/19 03/08/19 03/09/19 06:59 06:59 06:59 Intake Total 0 770 Output Total 0 1050 Balance 0 -280 Weight 69 kg 71.4 kg General appearance: PRESENT: no acute distress, well-developed, well-nourished Head exam: PRESENT: atraumatic, normocephalic Eye exam: PRESENT: conjunctiva pink, EOMI, PERRLA. ABSENT: scleral icterus Ear exam: PRESENT: normal external ear exam Mouth exam: PRESENT: moist, tongue midline Neck exam: PRESENT: full ROM. ABSENT: carotid bruit, JVD, lymphadenopathy, thyromegaly Respiratory exam: PRESENT: clear to auscultation ulysses Cardiovascular exam: PRESENT: RRR. ABSENT: diastolic murmur, rubs, systolic murmur Pulses: PRESENT: normal dorsalis pedis pul, +2 pedal pulses bilateral Vascular exam: PRESENT: normal capillary refill GI/Abdominal exam: PRESENT: normal bowel sounds, soft. ABSENT: distended, guarding, mass, organolmegaly, rebound, tenderness Rectal exam: PRESENT: deferred Neurological exam: PRESENT: alert, awake, oriented to person, oriented to place, oriented to time, oriented to situation, CN II-XII grossly intact. ABSENT: motor sensory deficit Psychiatric exam: PRESENT: appropriate affect, normal mood. ABSENT: homicidal ideation, suicidal ideation Skin exam: PRESENT: dry, intact, warm. ABSENT: cyanosis, rash Results Laboratory Results: 03/08/19 04:36 03/08/19 04:36 03/07/19 03/08/19 03/08/19 09:35 04:36 04:36 WBC 4.4 RBC 3.60 L Hgb 9.5 L Hct 29.1 L MCV 81 MCH 26.2 L MCHC 32.4 RDW 14.7 H Plt Count 251 Seg Neutrophils % 61.6 Carbonic Acid 1.32 HCO3/H2CO3 Ratio 20:1 ABG pH 7.41 ABG pCO2 43.9 ABG pO2 148.3 H ABG HCO3 26.9 H ABG O2 Saturation 98.9 H ABG Base Excess 1.9 FiO2 32% Sodium 138.6 Potassium 3.6 Chloride 101 Carbon Dioxide 31 H Anion Gap 7 BUN 24 H Creatinine 1.02 Est GFR ( Amer) > 60 Glucose 93 Calcium 8.2 L 03/06/19 03/06/19 03/06/19 05:10 05:10 08:15 Creatine Kinase < 20 L CK-MB (CK-2) 0.58 Troponin I 0.023 0.034 NT-Pro-B Natriuret Pep 69519 H Impressions: Chest X-Ray 03/07/19 00:00 IMPRESSION: Worsening basilar aeration. Assessment & Plan - Diagnosis (1) Acute CHF (congestive heart failure) Qualifiers: Heart failure type: combined systolic and diastolic Qualified Code(s): I 50.41 - Acute combined systolic (congestive) and diastolic (congestive) heart failure Is this a current diagnosis for this admission?: Yes Plan: Continues the IV Lasix (2) Shortness of breath Is this a current diagnosis for this admission?: Yes Plan: Currently all improving (3) Anemia Qualifiers: Anemia type: iron deficiency Iron deficiency anemia type: chronic blood loss Qualified Code(s): D50.0 - Iron deficiency anemia secondary to blood loss (chronic) Is this a current diagnosis for this admission?: Yes Plan: Currently all stable (4) CAD (coronary artery disease) Qualifiers: Coronary Disease-Associated Artery/Lesion type: [place] artery [place] vs. tr ansplanted heart: [place] heart Associated angina: with unstable angina Qualified Code(s): I25.110 - Atherosclerotic heart disease of [place] coronary artery with unstable angina pectoris Is this a current diagnosis for this admission?: Yes (5) COPD (chronic obstructive pulmonary disease) Qualifiers: COPD type: unspecified COPD Qualified Code(s): J44.9 - Chronic obstructive pulmonary disease, unspecified Is this a current diagnosis for this admission?: Yes Plan: Continue some nebulizer treatments (6) Mitral regurgitation Qualifiers: Cardiac valve disease etiology: etiology unspecified Qualified Code(s): I34.0 - Nonrheumatic mitral (valve) insufficiency Is this a current diagnosis for this admission?: Yes (7) Aortic incompetence Qualifiers: Cardiac valve disease etiology: etiology unspecified Qualified Code(s): I35.1 - Nonrheumatic aortic (valve) insufficiency Is this a current diagnosis for this admission?: Yes Plan: Follow-up with the cardiology - Time Time Spent with patient: 25-34 minutes Level of Care: IMCU Medications reviewed and adjusted accordingly: Yes Anticipated discharge: SNF Within: Other - Plan Summary Plan Summary: continue iv lasix
--- NOTE | 2019-03-08 13:48 | XCELERA REPORT ---
[address] [address] Transthoracic Echocardiogram Report Name: BERNABE DORMAN Age: 83 yrs Gender: Female : 1935 Patient Status: Inpatient Patient Location: [facility]^A Study Date: 03/06/2019 06:37 PM Height: 69 in Weight: 167 lb BSA: 1.9 m2 Procedure: A two-dimensional transthoracic echocardiogram with color flow and Doppler was performed. Study Quality: Good. Reason For Study: Shortness of breath; Acute CHF History: Shortness of breath; Acute CHF. Ordering Physician: MARISSA PHAM Performed By: Stephanie Trinh Interpretation Summary There is normal left ventricular wall thickness. LV EF is 30% to 35% Left ventricular systolic function is moderate to severely reduced. The right ventricle is mild to moderately dilated. The right atrium is mildly dilated. The left atrium is mildly dilated. There is moderate mitral annular calcification. There is no evidence of mitral valve prolapse. There is no vegetation seen on the mitral valve. There is no mitral valve stenosis. There is a moderate amount of mitral regurgitation There is no aortic valvular vegetation. There is moderate aortic stenosis There is a peak gradient of 39.5 mm of Hg. There is a mild to moderate amount of aortic regurgitation There is no tricuspid stenosis. There is a moderate amount of tricuspid regurgitation There is servere pulmonary hypertension by echo RVSP is at least 69.2 mm of Hg ,with RA mean of at least 20. There is no pulmonic valvular stenosis. There is a mild to moderate amount of pulmonic regurgitation The aortic root is normal size. The inferior vena cava appeared dilated and did not change with respiration (RAP > 20 mmHg) Small pericardial effusion. Moderate size left pleural effusion. LV diastolic function not assessed. MMode/2D Measurements & Calculations RVDd: 2.3 cm LVIDd: 5.1 cm FS: 13.0 % Ao root diam: 2.7 cm IVSd: 1.1 cm LVIDs: 4.4 cm EDV(Teich): Ao root area: LVPWd: 1.2 cm 123.7 ml 5.9 cm2 ESV(Teich): 89.3 mlLA dimension: 3.2 cm EF(Teich): 27.8 % LVOT diam: 2.0 cm LVLd ap4: 7.4 cm SV(MOD-sp4): LVOT area: EDV(MOD-sp4): 50.0 ml 87.0 ml 3.0 cm2 LVLs ap4: 5.4 cm ESV(MOD-sp4): 37.0 ml EF(MOD-sp4): 57.5 % Doppler Measurements & Calculations MV E max danya: MV P1/2t max danya: Ao V2 max: AI max danya: 144.2 cm/sec 153.0 cm/sec 314.1 cm/sec 540.2 cm/sec MV P1/2t: 52.6 msec Ao max PG: AI max PG: MVA(P1/2t): 4.2 cm2 39.5 mmHg 116.8 mmHg MV dec slope: DONOVAN(V,D): 0.89 cm2AI dec slope: 852.1 cm/sec2 524.1 cm/sec2 MV dec time: 0.19 sec AI P1/2t: 301.9 msec LV V1 max PG: MR max danya: PA V2 max: PI end-d danya: 3.5 mmHg 691.0 cm/sec 93.7 cm/sec 243.0 cm/sec LV V1 max: MR max P.0 mmHgPA max P.2 cm/sec 3.5 mmHg TR max danya: AV P1/2t-pr_phl: MV P1/2t-pr_phl: 350.8 cm/sec 307.0 msec 52.6 msec TR max P.2 mmHg Left Ventricle The left ventricle is borderline dilated. There is normal left ventricular wall thickness. LV EF is 30% to 35%. Left ventricular systolic function is moderate to severely reduced. LV diastolic function not assessed. Right Ventricle The right ventricle is mild to moderately dilated. The right ventricular systolic function is mildly reduced. Atria The right atrium is mildly dilated. The left atrium is mildly dilated. Mitral Valve There is moderate mitral annular calcification. There is no evidence of mitral valve prolapse. There is no vegetation seen on the mitral valve. There is no mitral valve stenosis. There is a moderate amount of mitral regurgitation. Aortic Valve There is no aortic valvular vegetation. There is moderate aortic stenosis. There is a peak gradient of 39.5 mm of Hg. There is no LVOT obstruction. There is a mild to moderate amount of aortic regurgitation. Tricuspid Valve There is no tricuspid stenosis. There is a moderate amount of tricuspid regurgitation. There is servere pulmonary hypertension by echo. RVSP is at least 69.2 mm of Hg ,with RA mean of at least 20. Pulmonic Valve There is no pulmonic valvular stenosis. There is a mild to moderate amount of pulmonic regurgitation. Great Vessels The aortic root is normal size. The inferior vena cava appeared dilated and did not change with respiration (RAP > 20 mmHg). Effusions Small pericardial effusion. Moderate size left pleural effusion. : MARISSA PHAM Lakshmi
[2019-03-08] MEDS: FAMOTIDINE 20 MG TABLET PO SCH (23:14)
[2019-03-08] MEDS: DONEPEZIL HCL 5 MG TABLET PO SCH (23:14)
[2019-03-08] MEDS: SERTRALINE HCL 50 MG TABLET PO SCH (23:14)
[2019-03-08] MEDS: ATORVASTATIN CALCIUM 20 MG TABLET PO SCH (23:14)
[2019-03-09 05:41] LABS: ABSOLUTE EOSINOPHILS # (AUTO) 0.1 10^3/uL (0.0-0.6); ABSOLUTE MONOCYTES (AUTO) 0.4 10^3/uL (0.1-1.4); ABSOLUTE NEUT (AUTO) 2.1 10^3/uL (1.7-8.2); BASOPHILS % (AUTO) 0.4 % (0-2); EOSINOPHILS % (AUTO) 2.5 % (0-6); HEMATOCRIT 29.7 % (36.0-47.0); HEMOGLOBIN 9.6 g/dL (12.0-15.5); LYMPHOCYTES % (AUTO) 26.4 % (13-45); MEAN CORPUSCULAR HGB CONC 32.2 g/dL (32.0-36.0); MEAN CORPUSCULAR VOLUME 81 fl (80-97); MONOCYTES % (AUTO) 11.6 % (3-13); PLATELET COUNT 252 10^3/uL (150-450); RED BLOOD COUNT 3.69 10^6/uL (3.72-5.28); RED CELL DISTRIBUTION WIDTH 15.2 % (11.5-14.0); SEGMENTED NEUTROPHILS % (AUTO) 59.1 % (42-78); TOTAL CELLS COUNTED % (AUTO) 100 %; WHITE BLOOD COUNT 3.6 10^3/uL (4.0-10.5)
[2019-03-09 05:59] LABS: ANION GAP 8 (5-19); BLOOD UREA NITROGEN 20 mg/dL (7-20); CALCIUM 8.5 mg/dL (8.4-10.2); CARBON DIOXIDE 34 mmol/L (22-30); CHLORIDE 98 mmol/L (98-107); GLUCOSE 88 mg/dL (75-110); POTASSIUM 3.6 mmol/L (3.6-5.0)
[2019-03-09] MEDS: PANTOPRAZOLE SODIUM 40 MG TABLET.DR PO SCH (06:09)
[2019-03-09] MEDS: DOCUSATE SODIUM 100 MG CAPSULE PO SCH ×2 (09:12→17:48)
[2019-03-09] MEDS: FUROSEMIDE INJ/PF 40 MG/4 ML SDV IV SCH ×2 (09:12→21:17)
[2019-03-09] MEDS: LISINOPRIL 10 MG TABLET PO SCH ×2 (09:12→22:22)
[2019-03-09] MEDS: AMLODIPINE BESYLATE 10 MG TABLET PO SCH (09:12)
[2019-03-09] MEDS: CEFEPIME 1 GM/D5W RTU 1 GM/50 ML RTUPB IV SCH ×2 (09:13→21:18)
[2019-03-09] MEDS: CARVEDILOL 12.5 MG TABLET PO SCH ×2 (09:13→21:18)
[2019-03-09] MEDS: CARBAMAZEPINE 200 MG TABLET PO SCH ×2 (09:13→21:18)
[2019-03-09] MEDS: FERROUS SULFATE 325 MG TABLET PO SCH (09:13)
[2019-03-09] MEDS: SUCRALFATE 1 GM TABLET PO SCH ×4 (09:13→21:17)
[2019-03-09] MEDS: POLYETHYLENE GLYCOL 3350 POWDER 17 GM/1 PACKET PO SCH (09:13)
[2019-03-09] MEDS: PRIMIDONE 50 MG TABLET PO SCH ×4 (09:17→21:18)
--- NOTE | 2019-03-09 10:55 | PDOC PROGRESS REPORT ---
Subjective Progress Note for:: 03/09/19 Subjective:: Patient is feeling weak and tired Patient is denied any chest pain no short of breath Discussed with the patient's son on the bedside very extensive patient's current conditions and the patient's patient's wants to be a DNR/DNI and the son agree with her Reason For Visit: ACUTE CHF Physical Exam Vital Signs: Temp Pulse Resp BP Pulse Ox 97.9 F 65 20 148/59 H 98 03/09/19 09:02 03/09/19 09:02 03/09/19 09:02 03/09/19 09:02 03/09/19 09:02 Intake & Output 03/08/19 03/09/19 03/10/19 06:59 06:59 06:59 Intake Total 770 1280 Output Total 1050 1500 Balance -280 -220 Weight 71.4 kg 68.9 kg General appearance: PRESENT: no acute distress, well-developed, well-nourished Head exam: PRESENT: atraumatic, normocephalic Eye exam: PRESENT: conjunctiva pink, EOMI, PERRLA. ABSENT: scleral icterus Ear exam: PRESENT: normal external ear exam Mouth exam: PRESENT: moist, tongue midline Neck exam: PRESENT: full ROM. ABSENT: carotid bruit, JVD, lymphadenopathy, thyromegaly Respiratory exam: PRESENT: clear to auscultation ulysses Cardiovascular exam: PRESENT: RRR. ABSENT: diastolic murmur, rubs, systolic murmur Pulses: PRESENT: normal dorsalis pedis pul, +2 pedal pulses bilateral Vascular exam: PRESENT: normal capillary refill GI/Abdominal exam: PRESENT: normal bowel sounds, soft. ABSENT: distended, guarding, mass, organolmegaly, rebound, tenderness Rectal exam: PRESENT: deferred Neurological exam: PRESENT: alert, awake, oriented to person, oriented to place, oriented to time, oriented to situation, CN II-XII grossly intact. ABSENT: motor sensory deficit Psychiatric exam: PRESENT: appropriate affect, normal mood. ABSENT: homicidal ideation, suicidal ideation Skin exam: PRESENT: dry, intact, warm. ABSENT: cyanosis, rash Results Laboratory Results: 03/09/19 04:51 03/09/19 04:51 03/08/19 03/09/19 03/09/19 18:09 04:51 04:51 WBC 3.6 L RBC 3.69 L Hgb 9.6 L Hct 29.7 L MCV 81 MCH 26.0 L MCHC 32.2 RDW 15.2 H Plt Count 252 Seg Neutrophils % 59.1 Sodium 140.0 Potassium 3.6 Chloride 98 Carbon Dioxide 34 H Anion Gap 8 BUN 20 Creatinine 0.97 Est GFR ( Amer) > 60 Glucose 88 Calcium 8.5 Stool Occult Blood POSITIVE 03/06/19 03/06/19 03/06/19 05:10 05:10 08:15 Creatine Kinase < 20 L CK-MB (CK-2) 0.58 Troponin I 0.023 0.034 NT-Pro-B Natriuret Pep 25237 H Impressions: Chest X-Ray 03/07/19 00:00 IMPRESSION: Worsening basilar aeration. Assessment & Plan - Diagnosis (1) Acute CHF (congestive heart failure) Qualifiers: Heart failure type: combined systolic and diastolic Qualified Code(s): I50.41 - Acute combined systolic (congestive) and diastolic (congestive) heart failure Is this a current diagnosis for this admission?: Yes Plan: Continues the IV Lasix (2) Shortness of breath Is this a current diagnosis for this admission?: Yes Plan: Currently all improving (3) Anemia Qualifiers: Anemia type: iron deficiency Iron deficiency anemia type: chronic blood loss Qualified Code(s): D50.0 - Iron deficiency anemia secondary to blood loss (chronic) Is this a current diagnosis for this admission?: Yes Plan: Currently all stable (4) CAD (coronary artery disease) Qualifiers: Coronary Disease-Associated Artery/Lesion type: [place] artery [place] vs. transplanted heart: [place] heart Associated angina: with unstable angina Qualified Code(s): I25.110 - Atherosclerotic heart disease of [place] coronary artery with unstable angina pectoris Is this a current diagnosis for this admission?: Yes (5) COPD (chronic obstructive pulmonary disease) Qualifiers: COPD type: unspecified COPD Qualified Code(s): J44.9 - Chronic obstructive pulmonary disease, unspecified Is this a current diagnosis for this admission?: Yes Plan: Continue some nebulizer treatments (6) Mitral regurgitation Qualifiers: Cardiac valve disease etiology: etiology unspecified Qualified Code(s): I34.0 - Nonrheumatic mitral (valve) insufficiency Is this a current diagnosis for this admission?: Yes (7) Aortic incompetence Qualifiers: Cardiac valve disease etiology: etiology unspecified Qualified Code(s): I35.1 - Nonrheumatic aortic (valve) insufficiency Is this a current diagnosis for this admission?: Yes Plan: Follow-up with the cardiology - Time Time Spent with patient: 25-34 minutes Level of Care: IMCU Medications reviewed and adjusted accordingly: Yes Within: Other - Plan Summary Plan Summary: Continues to current medications Discussed with the son and the patient's Patient is currently a DNR/DNI
--- NOTE | 2019-03-09 20:00 | Progress Note ---
Provider Note Provider Note: CARDIOLOGY PROGRESS NOTE by Dr. Estefany Degroot on 03/09/2019. OBJECTIVE: Patient's daughter at the bedside. The patient seems to be breathing much better but she seems to be slightly drowsy and lethargic. She denies any chest pain discomfort. There is no PND. She still has some degree of orthopnea. She denies any cough or sputum production. There is no atrial ventricular arrhythmia seen on the monitor. There is no TIA CVA symptoms. Note the patient is a DNR. Her daughter is her healthcare decision maker. PHYSICAL EXAMINATION: The patient appears to be a frail build and chronically ill. Selected Entries 03/09/19 12:25 Temperature 97.5 F Temperature Axillary Source Pulse Rate 60 Respiratory 18 Rate Blood Pressure 109/65 Blood Pressure 79 Mean BP Location Right Arm BP Position Supine O2 Sat by Pulse 100 Oximetry Oxygen Flow 2.00 Rate Oxygen Delivery Nasal Cannula Method HEAD: Is atraumatic normocephalic. EYES: Pupils pupils are equal round regular reactive to light and accommodation. Extraocular movements are normal. There is no conjunctival pallor. There is no scleral icterus. EARS: Tympanic membranes are intact. External canals are clear. NOSE: There is no deviated nasal septum. There is no inflammation of the nasal mucous membrane. MOUTH: Mucous membranes of mouth are moist. There is no ulcers. There is no bleeding from gums. THROAT: There is no redness of the oropharynx there is no exudates. Skin: There is no skin rashes there is no petechia or ecchymosis. NECK: Supple. There is mild JVD present. There is transmitted aortic regurgitation murmur heard over both carotids. There is no carotid bruit. There is mild carotid delay bilaterally. There is no lymphadenopathy. There is no goiter. There is no accessory muscle respiration use. LUNGS: There is absent breath sounds and dullness in both bases. There is also about this area few bibasilar rales of CHF. There is also bilateral dry crackles left more than right. The rest of the lungs are clear. HEART: S1-S2 is heard. There is no S3 gallop. There is no S4 gallop. There is systolic murmur left sternal border and the apex there is no rub. There is movement of aortic stenosis murmur. A2 is preserved. There is mild carotid delay. There is no aortic thrill felt. His murmur of mitral regurgitation and tricuspid regurgitation present. There is no rub. ABDOMEN: Soft. There is no hepatosplenomegaly. Bowel sounds are well heard. EXTREMITIES: Femorals are diminished. There is faint bilateral femoral bruits. Legs pulses diminished. There is no pedal edema. There is no DVT or cellulitis. There is no calf tenderness. ILLNESS: The patient is conscious awake, slightly drowsy but oriented x3. PSYCHIATRIC: Patient judgment insight seem to be intact. She is not agitated or anxious. Labs- All tests 24 hr 03/09/19 03/09/19 04:51 04:51 WBC 3.6 L RBC 3.69 L Hgb 9.6 L Hct 29.7 L MCV 81 MCH 26.0 L MCHC 32.2 RDW 15.2 H Plt Count 252 Lymph % (Auto) 26.4 [place] % (Auto) 11.6 Eos % (Auto) 2.5 Baso % (Auto) 0.4 Absolute Neuts (auto) 2.1 Absolute Lymphs (auto) 1.0 Absolute Monos (auto) 0.4 Absolute Eos (auto) 0.1 Absolute Basos (auto) 0.0 Seg Neutrophils % 59.1 Sodium 140.0 Potassium 3.6 Chloride 98 Carbon Dioxide 34 H Anion Gap 8 BUN 20 Creatinine 0.97 Est GFR ( Amer) > 60 Est GFR (MDRD) Non-Af 55 L Glucose 88 Calcium 8.5 Chest X-Ray 03/06/19 05:04 IMPRESSION: Tiny bibasilar effusions and/or pleural thickening. Equivocal retrocardiac airspace opacity. copyright 2010 [employer]- All Rights Reserved Chest X-Ray 03/07/19 00:00 IMPRESSION: Worsening basilar aeration. IMPRESSION RECOMMENDATION: 1. Acute on chronic biventricular systolic failure. [Acute on chronic right ventricle (systolic failure]. 2. Cannot exclude left lower lobe pneumonia. 3. Aortic stenosis most likely moderate. But need to reassess the patient's aortic valve gradient if the patient EF improves. 4. 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 5. Hypertension: Blood pressure well controlled 6. Coronary artery disease by history: No angina no [place] this admission. 7. Severe pulmonary hypertension: Most likely cause of the patient's right heart failure. Right heart failure is secondary to left heart failure. Causing significant pulmonary hypertension. And also secondary to valvular disease. 8. Moderate tricuspid regurgitation, and moderate mitral regurgitation. 9. Mild to moderate aortic regurgitation. .? COPD: Note pulmonary consult awaited. Medications reviewed. Medications added. Medical treatment and medical regimen and management plan discussed with attending physician. Medical decision making is of moderate to high complexity. 40 minutes spent on this patient with more than 50% of time spent in direct patient care. Discussed the patient's clinical condition with the patient's daughter. Will follow.
[2019-03-09] MEDS: FAMOTIDINE 20 MG TABLET PO SCH (21:17)
[2019-03-09] MEDS: SERTRALINE HCL 50 MG TABLET PO SCH (21:18)
[2019-03-09] MEDS: ATORVASTATIN CALCIUM 20 MG TABLET PO SCH (21:18)
[2019-03-09] MEDS: DONEPEZIL HCL 5 MG TABLET PO SCH (21:18)
[2019-03-10] MEDS: PANTOPRAZOLE SODIUM 40 MG TABLET.DR PO SCH (05:26)
[2019-03-10 06:33] LABS: ANION GAP 5 (5-19); BLOOD UREA NITROGEN 19 mg/dL (7-20); CALCIUM 8.4 mg/dL (8.4-10.2); CARBON DIOXIDE 39 mmol/L (22-30); CHLORIDE 96 mmol/L (98-107); GLUCOSE 91 mg/dL (75-110); POTASSIUM 3.3 mmol/L (3.6-5.0)
[2019-03-10] MEDS: CARVEDILOL 12.5 MG TABLET PO SCH ×2 (09:47→21:50)
[2019-03-10] MEDS: PRIMIDONE 50 MG TABLET PO SCH ×4 (09:47→21:50)
[2019-03-10] MEDS: AMLODIPINE BESYLATE 10 MG TABLET PO SCH (09:47)
[2019-03-10] MEDS: POLYETHYLENE GLYCOL 3350 POWDER 17 GM/1 PACKET PO SCH (09:47)
[2019-03-10] MEDS: LISINOPRIL 10 MG TABLET PO SCH ×2 (09:47→21:50)
[2019-03-10] MEDS: FERROUS SULFATE 325 MG TABLET PO SCH (09:47)
[2019-03-10] MEDS: SUCRALFATE 1 GM TABLET PO SCH ×4 (09:48→21:50)
[2019-03-10] MEDS: DOCUSATE SODIUM 100 MG CAPSULE PO SCH ×2 (09:48→17:49)
[2019-03-10] MEDS: CARBAMAZEPINE 200 MG TABLET PO SCH ×2 (09:48→21:50)
[2019-03-10] MEDS: CEFEPIME 1 GM/D5W RTU 1 GM/50 ML RTUPB IV SCH ×2 (09:49→21:51)
--- NOTE | 2019-03-10 10:27 | PDOC CONSULTATION ---
Consultation Consult Date: 03/10/19 Attending physician:: MARISSA PHAM Provider Consulted: IRAIS LOVE Consult reason:: resp failure/copd History of Present Illness Admission Date/PCP: 03/06/19 08:05 MARISSA PHAM History of Present Illness: BERNABE DORMAN is a 83 year old female with history of CHF present to the ED complaint increasing shortness of breath she was noted to have a BNP P of 42,000 she also complains of wheezing and a cough productive of tesfaye phlegm she denies ever having smoked. She denies hemoptysis PPD status is unknown she denies history of chronic lung disease as a child or adolescent she admits to exposure to passive smoke as a child as well as an adult. She has no pets no recent travel sleeps 3-4 pillows occasional PND occasional nocturnal cough she is unaware of any snoring Past Medical History Cardiac Medical History: Reports: Congestive Heart Failure, Coronary Artery Disease, Myocardial Infarction - unsure, Hyperlipidema, Hypertension, Heart Murmur Denies: Atrial Fibrillation, Peripheral Vascular Disease, Pulmonary Embolism Pulmonary Medical History: Reports: Chronic Obstructive Pulmonary Disease (COPD), Sleep Apnea Denies: Asthma, Bronchitis, Pneumonia, Respiratory Failure, Tuberculosis Neurological Medical History: Denies: Seizures Endocrine Medical History: Denies: Hyperthyroidism, Hypothyroidism Renal/ Medical History: Denies: End Stage Renal Disease Malignancy Medical History: Reports: Breast Cancer - left breast, Lung Cancer - right lung nodules Denies: Cervical Cancer, Leukemia, Ovarian Cancer GI Medical History: Reports: Gastroesophageal Reflux Disease, Hiatal Hernia Denies: Crohn's Disease Musculoskeltal Medical History: Reports: Arthritis Denies: Fibromyalgia Psychiatric Medical History: Denies: Bipolar Disorder, Dementia, Depression, Post Traumatic Stress Disorder Hematology: Reports: Anemia Denies: Hemophilia, Sickle Cell Disease Infectious Medical History: Denies: HIV Past Surgical History Past Surgical History: Reports: Cardiac Catheterization, Coronary Artery Bypass Graft - stent, Coronary Stent, Hysterectomy, Mastectomy - Left breast, Orthopedic Surgery - right hip replacement Denies: Amputation, Appendectomy, Section, Cholecystectomy, Colostomy, Gastric Bypass Surgery, Herniorrhaphy, Pacemaker, Tonsillectomy, Tubal Ligation Social History Information Source: [facility] Records Smoking Status: Never Smoker Passive smoke exposure as: Both Frequency of Alcohol Use: None Hx Recreational Drug Use: No Drugs: None Hx Prescription Drug Abuse: No Do you have pets?: No Have you had any respiratory illnesses as a child?: No Have you been exposed to any sick contacts recently?: No Have you had any recent respiratory illnesses?: Yes Have you travelled outside of [place] in the past 12 months?: No - Advance Directive Resuscitation Status: Do Not Resuscitate Family History Family History: Hypertension Parental Family History Reviewed: Yes Children Family History Reviewed: Yes Sibling(s) Family History Reviewed.: Yes Medication/Allergy Home Medications: Amlodipine Besylate [Norvasc 10 mg Tablet] 10 mg PO DAILY 03/06/19 Carbamazepine [Tegretol 200 Mg Tablet] 400 mg PO Q12 03/06/19 Carvedilol [Coreg 25 mg Tablet] 25 mg PO Q12 03/06/19 Docusate Sodium [Colace 100 mg Capsule] 100 mg PO BID 03/06/19 Donepezil HCl [Aricept 5 mg Tablet] 5 mg PO QHS 03/06/19 Ferrous Sulfate [Iron] 325 mg PO DAILY 03/06/19 Flaxseed Oil [Flax Seed Oil] 1,000 mg PO DAILY 03/06/19 Lisinopril [Prinivil 10 mg Tablet] 10 mg PO DAILY 03/06/19 Oxycodone HCl [Oxy-Ir 5 mg Tablet] 5 mg PO Q8HP PRN 03/06/19 Polyethylene Glycol 3350 [Miralax Powder 17 gm/Packet] 1 packet PO DAILY 03/06/19 Primidone [Mysoline 50 Mg Tablet] 100 mg PO QID 03/06/19 Psyllium Husk (with Sugar) [Metamucil Packet] 1 packet PO BID 03/06/19 Ranitidine HCl [Zantac] 300 mg PO QHS 03/06/19 Rosuvastatin Calcium [Crestor 10 mg Tablet] 10 mg PO QHS 03/06/19 Sertraline HCl [Zoloft 50 mg Tablet] 50 mg PO QHS 03/06/19 Sucralfate [Carafate 1 gm Tablet] 1 gm PO QID 03/06/19 Allergies/Adverse Reactions: promethazine HCl [From Phenergan] Allergy (Verified 12/07/18 14:57) Review of Systems All systems: reviewed and no additional remarkable complaints except as stated Constitutional: PRESENT: anorexia Physical Exam Vital Signs: Temp Pulse Resp BP Pulse Ox 98.0 F 71 14 170/75 H 96 03/10/19 08:17 03/10/19 08:17 03/10/19 08:17 03/10/19 08:17 03/10/19 08:17 Intake & Output 03/09/19 03/10/19 03/11/19 06:59 06:59 06:59 Intake Total 1280 1260 Output Total 1500 3000 Balance -220 -1740 Weight 68.9 kg 66.3 kg General appearance: PRESENT: no acute distress, cooperative, disheveled, hard of hearing, well-developed, well-nourished Head exam: PRESENT: atraumatic, normocephalic Eye exam: PRESENT: conjunctiva pale, EOMI. ABSENT: nystagmus, periorbital swelling Mouth exam: PRESENT: dry mucosa, neck supple, tongue midline Neck exam: ABSENT: carotid bruit, JVD, lymphadenopathy, thyromegaly Respiratory exam: PRESENT: decreased breath sounds, prolonged expiratory phas, rhonchi, symmetrical, unlabored. ABSENT: rales, retraction, stridor, tachypnea Cardiovascular exam: PRESENT: RRR, +S1, +S2 Pulses: PRESENT: normal radial pulses GI/Abdominal exam: PRESENT: soft. ABSENT: distended, guarding, mass, rebound, tenderness Neurological exam: PRESENT: altered, awake Psychiatric exam: PRESENT: flat affect Skin exam: PRESENT: dry, warm Results Laboratory Results: 03/09/19 04:51 03/10/19 04:47 03/10/19 04:47 Sodium 140.3 Potassium 3.3 L Chloride 96 L Carbon Dioxide 39 H Anion Gap 5 BUN 19 Creatinine 0.88 Est GFR ( Amer) > 60 Glucose 91 Calcium 8.4 03/06/19 03/06/19 03/06/19 05:10 05:10 08:15 Creatine Kinase < 20 L CK-MB (CK-2) 0.58 Troponin I 0.023 0.034 NT-Pro-B Natriuret Pep 14663 H Impressions: Chest X-Ray 03/07/19 00:00 IMPRESSION: Worsening basilar aeration. Assessment & Plan - Diagnosis (1) Acute CHF (congestive heart failure) Qualifiers: Heart failure type: combined systolic and diastolic Qualified Code(s): I50.41 - Acute combined systolic (congestive) and diastolic (congestive) heart failure Is this a current diagnosis for this admission?: Yes Plan: BNP 42,000 elevation more than age-related (2) Shortness of breath Is this a current diagnosis for this admission?: Yes Plan: Improving with diuresis patient movement more stable would like to do bedside spirometry to confirm obstructive defect Addendum spirometry shows severe obstructive ventilatory defect as well as setting of severe restrictive ventilatory defect. (3) Do not resuscitate Is this a current diagnosis for this admission?: Yes Plan: As above (4) Essential hypertension Is this a current diagnosis for this admission?: Yes
[2019-03-10] MEDS: FUROSEMIDE INJ/PF 40 MG/4 ML SDV IV SCH (11:00)
--- NOTE | 2019-03-10 11:06 | RADIOLOGY REPORT (SQ) ---
EXAM DESCRIPTION: CHEST SINGLE VIEW COMPLETED DATE/TIME: 03/10/2019 10:16 am REASON FOR STUDY: CHF / Pleural Effusion COMPARISON: 03/07/2019 EXAM PARAMETERS: NUMBER OF VIEWS: One view. TECHNIQUE: Single frontal radiographic view of the chest acquired. RADIATION DOSE: NA LIMITATIONS: None. FINDINGS: LUNGS AND PLEURA: Significant improved aeration of the right lung with decrease in the rig ht effusion. Persistent left basilar opacities but improved. MEDIASTINUM AND HILAR STRUCTURES: No masses. Contour normal. HEART AND VASCULAR STRUCTURES: Vascular congestion improved. BONES: No acute findings. HARDWARE: None in the chest. OTHER: No other significant finding. IMPRESSION: Significant improved aeration of the lung bases. Residual opacities most prominent on t he left. TECHNICAL DOCUMENTATION: JOB ID: [id number] [employer]- All Rights Reserved Reading location - IP/workstation name: [email or web address]
--- NOTE | 2019-03-10 15:30 | Progress Note ---
Provider Note Provider Note: CARDIOLOGY PROGRESS NOTE by Dr. Estefany Degroot on 03/10/2019. OBJECTIVE: The patient states shortness of breath is slightly improved. She still has some orthopnea but no PND. There is no chest pain or discomfort. The patient denies any cough. There is no mental arrhythmia seen on the monitor. There is no TIA CVA symptoms. PHYSICAL EXAMINATION: The patient is a frail build and appears to be chronically ill. Selected Entries 03/10/19 11:34 Temperature 97.8 F Temperature Axillary Source Pulse Rate 64 Respiratory 16 Rate Blood Pressure 141/57 H Blood Pressure 85 Mean BP Location Right Arm BP Position Supine O2 Sat by Pulse 99 Oximetry Oxygen Flow 2.00 Rate Oxygen Delivery Nasal Cannula Method HEAD: Is atraumatic normocephalic. EYES: Pupils pupils are equal round regular reactive to light and accommodation. Extraocular movements are normal. There is no conjunctival pallor. There is no scleral icterus. EARS: Tympanic membranes are intact. External canals are clear. NOSE: There is no deviated nasal septum. There is no inflammation of the nasal mucous membrane. MOUTH: Mucous membranes of mouth are moist. There is no ulcers. There is no bleeding from gums. THROAT: There is no redness of the oropharynx there is no exudates. Skin: There is no skin rashes there is no petechia or ecchymosis. NECK: Supple. There is mild JVD present. There is transmitted aortic regurgitation murmur heard over both carotids. There is no carotid bruit. There is mild carotid delay bilaterally. There is no lymphadenopathy. There is no goiter. There is no accessory muscle respiration use. LUNGS: There is absent breath sounds and dullness in both bases. There is also about this area few bibasilar rales of CHF. There is also bilateral dry crackles left more than right. The rest of the lungs are clear. HEART: S1-S2 is heard. There is no S3 gallop. There is no S4 gallop. There is systolic murmur left sternal border and the apex there is no rub. There is movement of aortic stenosis murmur. A2 is preserved. There is mild carotid delay. There is no aortic thrill felt. His murmur of mitral regurgitation and tricuspid regurgitation present. There is no rub. ABDOMEN: Soft. There is no hepatosplenomegaly. Bowel sounds are well heard. EXTREMITIES: Femorals are diminished. There is faint bilateral femoral bruits. Legs pulses diminished. There is no pedal edema. There is no DVT or cellulitis. There is no calf tenderness. ILLNESS: The patient is conscious awake, slightly drowsy but oriented x3. PSYCHIATRIC: Patient judgment insight seem to be intact. She is not agitated or anxious. Labs- All tests 24 hr 03/10/19 03/10/19 04:47 04:47 Sodium 140.3 Potassium 3.3 L Chloride 96 L Carbon Dioxide 39 H Anion Gap 5 BUN 19 Creatinine 0.88 Est GFR ( Amer) > 60 Est GFR (MDRD) Non-Af > 60 Glucose 91 Calcium 8.4 Magnesium 1.8 Chest X-Ray 03/06/19 05:04 IMPRESSION: Tiny bibasilar effusions and/or pleural thickening. Equivocal retrocardiac airspace opacity. copyright 2010 [employer]- All Rights Reserved Chest X-Ray 03/07/19 00:00 IMPRESSION: Worsening basilar aeration. Chest X-Ray 03/10/19 00:00 IMPRESSION: Significant improved aeration of the lung bases. Residual opacities most prominent on the left. IMPRESSION RECOMMENDATION: 1. Acute on chronic biventricular systolic failure. [Acute on chronic right ventricle (systolic failure]. Chest x-ray is much improved shows resolution of right pleural effusion. Continue current treatment. 2. Cannot exclude left lower lobe pneumonia. Continue antibiotics. 3. Aortic stenosis most likely moderate. But need to reassess the patient's aortic valve gradient if the patient EF improves. 4. 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 5. Hypertension: Blood pressure well controlled 6. Coronary artery disease by history: No angina no MD this admission. 7. Severe pulmonary hypertension: Most likely cause of the patient's right heart failure. Right heart failure is secondary to left heart failure. Causing significant pulmonary hypertension. And also secondary to valvular disease. 8. Moderate tricuspid regurgitation, and moderate mitral regurgitation. 9. Mild to moderate aortic regurgitation. 10. COPD Medications reviewed. Medical regimen management plan discussed with attending physician. Medical decision making is a moderate complexity. 40 minutes spent on this patient with more than 50% of time spent in direct care. Will follow.
[2019-03-10] MEDS ORDERED: POTASSIUM CHLORIDE 20 MEQ PACKET PO SCH (16:45)
[2019-03-10] MEDS ORDERED: POTASSIUM CHLORIDE 20 MEQ PACKET PO ONE ×2 (17:00→20:00)
--- NOTE | 2019-03-10 18:46 | PDOC PROGRESS REPORT ---
Subjective Progress Note for:: 03/10/19 Subjective:: Patient reported feeling a little better today. Less coughing and generalized weakness. No chest pain. No abdominal pain, nausea or vomiting. No fever or chills. Reason For Visit: ACUTE CHF Physical Exam Vital Signs: Temp Pulse Resp BP Pulse Ox 98.2 F 68 16 143/58 H 76 L 03/10/19 16:36 03/10/19 16:36 03/10/19 16:36 03/10/19 16:36 03/10/19 16:36 Intake & Output 03/09/19 03/10/19 03/11/19 06:59 06:59 06:59 Intake Total 1280 1260 50 Output Total 1500 3000 Balance -220 -1740 50 Weight 68.9 kg 66.3 kg General appearance: PRESENT: no acute distress Head exam: PRESENT: atraumatic, normocephalic Eye exam: PRESENT: conjunctiva pink, EOMI, PERRLA. ABSENT: scleral icterus Ear exam: PRESENT: normal external ear exam Mouth exam: PRESENT: moist Cardiovascular exam: PRESENT: +S1, +S2, systolic murmur. ABSENT: diastolic murmur, gallop Vascular exam: ABSENT: pallor GI/Abdominal exam: PRESENT: normal bowel sounds, soft. ABSENT: distended, guarding, mass, organolmegaly, rebound, tenderness Extremities exam: PRESENT: pedal edema - left upper extremity from lymphedema Neurological exam: PRESENT: alert, awake Psychiatric exam: PRESENT: appropriate affect, normal mood. ABSENT: homicidal ideation, suicidal ideation Skin exam: PRESENT: dry, warm Results Laboratory Results: 03/09/19 04:51 03/10/19 04:47 03/10/19 04:47 Sodium 140.3 Potassium 3.3 L Chloride 96 L Carbon Dioxide 39 H Anion Gap 5 BUN 19 Creatinine 0.88 Est GFR ( Amer) > 60 Glucose 91 Calcium 8.4 03/06/19 03/06/19 03/06/19 05:10 05:10 08:15 Creatine Kinase < 20 L CK-MB (CK-2) 0.58 Troponin I 0.023 0.034 NT-Pro-B Natriuret Pep 58251 H Impressions: Chest X-Ray 03/10/19 00:00 IMPRESSION: Significant improved aeration of the lung bases. Residual opacities most prominent on the left. Assessment & Plan - Diagnosis (1) Acute systolic (congestive) heart failure Is this a current diagnosis for this admission?: Yes Plan: Continue current medication management. transition to oral Lasix. (2) Chronic diastolic CHF (congestive heart failure) Is this a current diagnosis for this admission?: Yes (3) COPD (chronic obstructive pulmonary disease) Qualifiers: COPD type: unspecified COPD Qualified Code(s): J44.9 - Chronic obstructive pulmonary disease, unspecified Is this a current diagnosis for this admission?: Yes (4) Essential hypertension Is this a current diagnosis for this admission?: Yes (5) CAD (coronary artery disease) Qualifiers: Coronary Disease-Associated Artery/Lesion type: [place] artery [place] vs. transplanted heart: [place] heart Associated angina: with unstable angina Noel lified Code(s): I25.110 - Atherosclerotic heart disease of [place] coronary artery with unstable angina pectoris Is this a current diagnosis for this admission?: Yes (6) Hyperlipidemia Qualifiers: Hyperlipidemia type: unspecified Qualified Code(s): E78.5 - Hyperlipidemia, unspecified Is this a current diagnosis for this admission?: Yes (7) Hypokalemia Is this a current diagnosis for this admission?: Yes Plan: Replacement of potassium is in progress. - Time Time Spent with patient: 25-34 minutes Level of Care: IMCU Medications reviewed and adjusted accordingly: Yes Anticipated discharge: SNF Within: Other - Inpatient Certification Based on my medical assessment, after consideration of the patient's comorbidities, presenting symptoms, or acuity I expect that the services needed warrant INPATIENT care.: Yes I certify that my determination is in accordance with my understanding of Medicare's requirements for reasonable and necessary INPATIENT services [42 CFR 412.3e].: Yes Medical Necessity: Significant Comorbidiites Make Outpatient Treatment Too R isky, Need Close Monitoring Due to Risk of Patient Decompensation, Need For Continuous Telemetry Monitoring, Need for IV Antibiotics, Risk of Complication if Not Cared For in Hospital, Risk of Diagnosis Which Will Require Inpatient Eval/Care/Monitoring 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 Patient will receive potassium replacement. Continue IV Cefepime coverage. D/C IV Lasix.
[2019-03-10] MEDS: FUROSEMIDE 40 MG TABLET PO SCH (20:10)
[2019-03-10] MEDS: DONEPEZIL HCL 5 MG TABLET PO SCH (21:50)
[2019-03-10] MEDS: ATORVASTATIN CALCIUM 20 MG TABLET PO SCH (21:50)
[2019-03-10] MEDS: SERTRALINE HCL 50 MG TABLET PO SCH (21:50)
[2019-03-10] MEDS: FAMOTIDINE 20 MG TABLET PO SCH (21:51)
[2019-03-11] MEDS: PANTOPRAZOLE SODIUM 40 MG TABLET.DR PO SCH (05:21)
[2019-03-11] MEDS: POLYETHYLENE GLYCOL 3350 POWDER 17 GM/1 PACKET PO SCH (09:31)
[2019-03-11] MEDS: POTASSIUM CHLORIDE 20 MEQ PACKET PO SCH (09:31)
[2019-03-11] MEDS: FUROSEMIDE 40 MG TABLET PO SCH ×2 (09:31→17:36)
[2019-03-11] MEDS: AMLODIPINE BESYLATE 10 MG TABLET PO SCH (09:31)
[2019-03-11] MEDS: SUCRALFATE 1 GM TABLET PO SCH ×4 (09:31→21:28)
[2019-03-11] MEDS: CEFEPIME 1 GM/D5W RTU 1 GM/50 ML RTUPB IV SCH ×2 (09:31→21:29)
[2019-03-11] MEDS: DOCUSATE SODIUM 100 MG CAPSULE PO SCH ×2 (09:31→17:36)
[2019-03-11] MEDS: CARVEDILOL 12.5 MG TABLET PO SCH ×2 (09:31→21:27)
[2019-03-11] MEDS: LISINOPRIL 10 MG TABLET PO SCH ×2 (09:31→21:26)
[2019-03-11] MEDS: FERROUS SULFATE 325 MG TABLET PO SCH (09:31)
[2019-03-11] MEDS: PRIMIDONE 50 MG TABLET PO SCH ×4 (09:32→23:00)
[2019-03-11] MEDS: CARBAMAZEPINE 200 MG TABLET PO SCH ×2 (09:32→23:00)
[2019-03-11 18:23] LABS: ARTERIAL BLOOD BASE EXCESS 9.7 mmol/L; ARTERIAL BLOOD FIO2 1L NC; ARTERIAL BLOOD H2CO3 1.54 mmol/L (1.05-1.35); ARTERIAL BLOOD O2 SATURATION 96.6 % (94-98); ARTERIAL BLOOD PCO2 51.1 mmHg (35-45); ARTERIAL BLOOD PH 7.45 (7.35-7.45); ARTERIAL BLOOD PO2 84.6 mmHg (80-100); ARTERIAL BLOOD TOTAL CO2 36.6 mmol/L (21-25)
--- NOTE | 2019-03-11 19:31 | Progress Note ---
Provider Note Provider Note: CARDIOLOGY PROGRESS NOTE by Dr. Estefany Degroot on . OBJECTIVE: The patient seems to be slightly drowsy. But she is oriented x3. She does have a cough but states unable to bring up sputum. Her shortness of breath is improved. There is no chest pain discomfort. There is no arrhythmia seen on the monitor. There is no TIA CVA symptoms. PHYSICAL EXAMINATION: The patient is a frail build and appears to be chronically ill. Selected Entries 03/11/19 12:56 Temperature 97.7 F Temperature Axillary Source Pulse Rate 63 Respiratory 16 Rate Blood Pressure 111/45 L Blood Pressure 67 Mean BP Location Right Arm BP Position Supine O2 Sat by Pulse 96 Oximetry Oxygen Flow 0.50 Rate Oxygen Delivery Nasal Cannula Method HEAD: Is atraumatic normocephalic. EYES: Pupils pupils are equal round regular reactive to light and accommodation. Extraocular movements are normal. There is no conjunctival pallor. There is no scleral icterus. EARS: Tympanic membranes are intact. External canals are clear. NOSE: There is no deviated nasal septum. There is no inflammation of the nasal mucous membrane. MOUTH: Mucous membranes of mouth are moist. There is no ulcers. There is no bleeding from gums. THROAT: There is no redness of the oropharynx there is no exudates. Skin: There is no skin rashes there is no petechia or ecchymosis. NECK: Supple. There is mild JVD present. There is transmitted aortic regurgitation murmur heard over both carotids. There is no carotid bruit. There is mild carotid delay bilaterally. There is no lymphadenopathy. There is no goiter. There is no accessory muscle respiration use. LUNGS: There is absent breath sounds and dullness in both bases. There is also about this area few bibasilar rales of CHF. There is also bilateral dry crackles left more than right. The rest of the lungs are clear. HEART: S1-S2 is heard. There is no S3 gallop. There is no S4 gallop. There is systolic murmur left sternal border and the apex there is no rub. There is movement of aortic stenosis murmur. A2 is preserved. There is mild carotid delay. There is no aortic thrill felt. His murmur of mitral regurgitation and tricuspid regurgitation present. There is no rub. ABDOMEN: Soft. There is no hepatosplenomegaly. Bowel sounds are well heard. EXTREMITIES: Femorals are diminished. There is faint bilateral femoral bruits. Legs pulses diminished. There is no pedal edema. There is no DVT or cellulitis. There is no calf tenderness. ILLNESS: The patient is conscious awake, slightly drowsy but oriented x3. PSYCHIATRIC: Patient judgment insight seem to be intact. She is not agitated or anxious. Labs- All tests 24 hr 03/11/19 03/11/19 18:10 19:06 Carbonic Acid 1.54 H HCO3/H2CO3 Ratio 22:1 ABG pH 7.45 ABG pCO2 51.1 H ABG pO2 84.6 ABG HCO3 35.0 H ABG Total CO2 36.6 H ABG O2 Saturation 96.6 ABG Base Excess 9.7 FiO2 1L NC Sodium 138.0 Potassium 4.2 Chloride 94 L Carbon Dioxide 36 H Anion Gap 8 BUN 20 Creatinine 1.00 Est GFR ( Amer) > 60 Est GFR (MDRD) Non-Af 53 L Glucose 123 H Calcium 9.1 Chest X-Ray 03/06/19 05:04 IMPRESSION: Tiny bibasilar effusions and/or pleural thickening. Equivocal retrocardiac airspace opacity. copyright 2010 [employer]- All Rights Reserved Chest X-Ray 03/07/19 00:00 IMPRESSION: Worsening basilar aeration. Chest X-Ray 03/10/19 00:00 IMPRESSION: Significant improved aeration of the lung bases. Residual opacities most prominent on the left. Mild impression/RECOMMENDATION: 1. Acute on chronic biventricular systolic failure. [Acute on chronic right ventricle (systolic failure]. Chest x-ray is much improved shows resolution of right pleural effusion. Continue current treatment. Note that the patient's ABG shows elevated CO2, which could explain the patient's drowsiness. 2. Cannot exclude left lower lobe pneumonia. Continue antibiotics. 3. Aortic stenosis most likely moderate. But need to reassess the patient's aortic valve gradient if the patient EF improves. 4. 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 5. Hypertension: Blood pressure well controlled 6. Coronary artery disease by history: No angina no MS this admission. 7. Severe pulmonary hypertension: Most likely cause of the patient's right heart failure. Right heart failure is secondary to left heart failure. Causing significant pulmonary hypertension. And also secondary to valvular disease. 8. Moderate tricuspid regurgitation, and moderate mitral regurgitation. 9. Mild to moderate aortic regurgitation. 10. COPD: Continue bronchodilator treatment and antibiotics. Medications reviewed medication regimen and management plan discussed with attending physician. Medical decision making is of moderate complexity. 40 minutes spent as patient more than 50% of time spent direct patient care. Will follow.
[2019-03-11 19:40] LABS: ANION GAP 8 (5-19); BLOOD UREA NITROGEN 20 mg/dL (7-20); CALCIUM 9.1 mg/dL (8.4-10.2); CARBON DIOXIDE 36 mmol/L (22-30); CHLORIDE 94 mmol/L (98-107); GLUCOSE 123 mg/dL (75-110); POTASSIUM 4.2 mmol/L (3.6-5.0)
--- NOTE | 2019-03-11 20:09 | PDOC PROGRESS REPORT ---
Subjective Progress Note for:: 03/11/19 Subjective:: Patient is less engaging so far today. Daughter and nursing staff reported episodes of lack of coordination and inability to feed herself. There is observed difficulty with swallowing. Patient reported coughing spells during last night. No chest pain. No abdominal pain, nausea or vomiting. No fever or chills. Reason For Visit: ACUTE CHF Physical Exam Vital Signs: Temp Pulse Resp BP Pulse Ox 98.0 F 83 16 126/53 H 98 03/11/19 17:12 03/11/19 19:00 03/11/19 17:12 03/11/19 17:12 03/11/19 17:12 Intake & Output 03/10/19 03/11/19 03/12/19 06:59 06:59 06:59 Intake Total 1260 430 620 Output Total 3000 1775 575 Balance -1740 -1345 45 Weight 66.3 kg 66 kg Physical Exam: General appearance: PRESENT: no acute distress Head exam: PRESENT: atraumatic, normocephalic Eye exam: PRESENT: conjunctiva pink, EOMI, PERRLA. ABSENT: pallor, scleral icterus Ear exam: PRESENT: normal external ear exam Mouth exam: PRESENT: moist Cardiovascular exam: PRESENT: +S1, +S2, systolic murmur. ABSENT: diastolic murmur, gallop GI/Abdominal exam: PRESENT: normal bowel sounds, soft. ABSENT: distended, guarding, mass, organomegaly, rebound, tenderness Extremities exam: PRESENT: pedal edema - left upper extremity from lymphedema Neurological exam: PRESENT: alert, awake Psychiatric exam: PRESENT: appropriate affect, normal mood. ABSENT: homicidal ideation, suicidal ideation Skin exam: PRESENT: dry, warm Results Laboratory Results: 03/09/19 04:51 03/11/19 19:06 03/11/19 03/11/19 18:10 19:06 Carbonic Acid 1.54 H HCO3/H2CO3 Ratio 22:1 ABG pH 7.45 ABG pCO2 51.1 H ABG pO2 84.6 ABG HCO3 35.0 H ABG O2 Saturation 96.6 ABG Base Excess 9.7 FiO2 1L NC Sodium 138.0 Potassium 4.2 Chloride 94 L Carbon Dioxide 36 H Anion Gap 8 BUN 20 Creatinine 1.00 Est GFR ( Amer) > 60 Glucose 123 H Calcium 9.1 03/06/19 03/06/19 03/06/19 05:10 05:10 08:15 Creatine Kinase < 20 L CK-MB (CK-2) 0.58 Troponin I 0.023 0.034 NT-Pro-B Natriuret Pep 19256 H Impressions: Chest X-Ray 03/10/19 00:00 IMPRESSION: Significant improved aeration of the lung bases. Residual opacities most prominent on the left. Assessment & Plan - Diagnosis (1) Acute systolic (congestive) heart failure Is this a current diagnosis for this admission?: Yes (2) Chronic diastolic CHF (congestive heart failure) Is this a current diagnosis for this admission?: Yes (3) COPD (chronic obstructive pulmonary disease) Qualifiers: COPD type: unspecified COPD Qualified Code(s): J44.9 - Chronic obstructive pulmonary disease, unspecified Is this a current diagnosis for this admission?: Yes (4) Essential hypertension Is this a current diagnosis for this admission?: Yes (5) CAD (coronary artery disease) Qualifiers: Coronary Disease-Associated Artery/Lesion type: [place] artery [place] vs. transplanted heart: [place] heart Associated angina: with unstable angina Qualified Code(s): I25.110 - Atherosclerotic heart disease of [place] coronary artery with unstable angina pectoris Is this a current diagnosis for this admission?: Yes (6) Hyperlipidemia Qualifiers: Hyperlipidemia type: unspecified Qualified Code(s): E78.5 - Hyperlipidemia, unspecified Is this a current diagnosis for this admission?: Yes (7) Hypokalemia Is this a current diagnosis for this admission?: Yes (8) Essential tremor Is this a current diagnosis for this admission?: Yes Plan: Taper down of Primidone dosage and monitor movement disorder, particularly possible ataxia as side effect of Primidone usage. - Time Time Spent with patient: 35 or more minutes Level of Care: IMCU Medications reviewed and adjusted accordingly: Yes Anticipated discharge: Home with Homehealth, SNF Within: Other - Inpatient Certification Based on my medical assessment, after consideration of the patient's co morbidities, presenting symptoms, or acuity I expect that the services needed warrant INPATIENT care.: Yes I certify that my determination is in accordance with my understanding of Medicare's requirements for reasonable and necessary INPATIENT services [42 CFR 412.3e].: Yes Medical Necessity: Significant Comorbidiites Make Outpatient Treatment Too Risky, Need Close Monitoring Due to Risk of Patient Decompensation, Need For IV Fluids, Need For Continuous Telemetry Monitoring, Need for Nebulizer Therapy and Monitoring of Response, Need for IV Antibiotics, Risk of Complication if Not Cared For in Hospital, Risk of Diagnosis Which Will Require Inpatient Eval/Care/Monitoring 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 Decrease Primidone to 75 mg p.o qid. PT and speech therapist evaluation requested. Use BiPAP support for her hypercapnic state. Follow up on BMP and Mag level.
[2019-03-11] MEDS: DONEPEZIL HCL 5 MG TABLET PO SCH (21:25)
[2019-03-11] MEDS: ATORVASTATIN CALCIUM 20 MG TABLET PO SCH (21:26)
[2019-03-11] MEDS: SERTRALINE HCL 50 MG TABLET PO SCH (21:27)
[2019-03-11] MEDS: FAMOTIDINE 20 MG TABLET PO SCH (21:27)
[2019-03-12] MEDS: PANTOPRAZOLE SODIUM 40 MG TABLET.DR PO SCH (05:30)
[2019-03-12] MEDS: POTASSIUM CHLORIDE 20 MEQ PACKET PO SCH (09:26)
[2019-03-12] MEDS: POLYETHYLENE GLYCOL 3350 POWDER 17 GM/1 PACKET PO SCH (09:26)
[2019-03-12] MEDS: DOCUSATE SODIUM 100 MG CAPSULE PO SCH ×2 (09:26→18:02)
[2019-03-12] MEDS: FERROUS SULFATE 325 MG TABLET PO SCH (09:26)
[2019-03-12] MEDS: CEFEPIME 1 GM/D5W RTU 1 GM/50 ML RTUPB IV SCH ×2 (09:26→21:15)
[2019-03-12] MEDS: AMLODIPINE BESYLATE 10 MG TABLET PO SCH (09:26)
[2019-03-12] MEDS: LISINOPRIL 10 MG TABLET PO SCH ×2 (09:26→21:16)
[2019-03-12] MEDS: SUCRALFATE 1 GM TABLET PO SCH ×4 (09:26→21:20)
[2019-03-12] MEDS: FUROSEMIDE 40 MG TABLET PO SCH ×2 (09:26→18:16)
[2019-03-12] MEDS: CARVEDILOL 12.5 MG TABLET PO SCH ×2 (09:26→21:15)
[2019-03-12] MEDS: PRIMIDONE 50 MG TABLET PO SCH ×4 (09:36→21:20)
[2019-03-12] MEDS: CARBAMAZEPINE 200 MG TABLET PO SCH ×2 (09:37→21:15)
--- NOTE | 2019-03-12 11:56 | RADIOLOGY REPORT (SQ) ---
EXAM DESCRIPTION: CHEST SINGLE VIEW COMPLETED DATE/TIME: 03/12/2019 11:26 am REASON FOR STUDY: SOB / Pneumonia COMPARISON: AP view of the chest from 03/10/2019 EXAM PARAMETERS: NUMBER OF VIEWS: One view. TECHNIQUE: Single frontal radiographic view of the chest acquired. RADIATION DOSE: NA LIMITATIONS: None. FINDINGS: LUNGS AND PLEURA: The left lateral costophrenic sulcus remains blunted ; compared to the p rior radiograph, the aeration of the left lower lobe is improved. There is no pneumothorax. MEDIASTINUM AND HILAR STRUCTURES: Stable mediastinal and hilar contours. HEART AND VASCULAR STRUCTURES: Stable cardiac silhouette. BONES: No acute findings. HARDWARE: None in the chest. OTHER: No other finding. IMPRESSION: Small left pleural effusion and decreased opacification of the left lower lobe. TECHNICAL DOCUMENTATION: JOB ID: [id number] [employer]- All Rights Reserved Reading location - IP/workstation name: [email or web address]
--- NOTE | 2019-03-12 13:30 | Pulmonary Function Test ---
Pulmonary Function Test Date of Procedure:: 03/12/19 INDICATION:: Dyspnea Referring Provider: Dr. Castellon Deckhand [employer]: Federica Saldaña FIELD ADMINISTRATIVE ASSISTANT - Report Spirometry: Spirometry: pre-FVC: 0.88 L 27% pre-FEV:1 0.47 L 19% pre-FEV1/FVC %: 53 predicted: 74 [id number]%: 0.26 L 15% Impression: Severe obstructive ventilatory defect. Restrictive defect is inferred but cannot be diagnosed on the basis of spirometry alone. (Restrictive defect may mask the degree of obstruction.)
--- NOTE | 2019-03-12 19:13 | Progress Note ---
Provider Note Provider Note: CARDIOLOGY PROGRESS NOTE by Dr. Estefany Degroot on 03/12/2019. SUBJECTIVE: The patient shortness of breath is improved. She denies any chest pain. There is no PND. She still has some degree of orthopnea. There is no leg edema at present. Her appetite is slightly improved and her intake is improved. Note that the patient has a history of stercoral ulcer of the right tube and hence this could account for the occult positive blood in the stools. There is no arrhythmia seen on the monitor. She is more awake than yesterday. PHYSICAL EXAMINATION: The patient appears to be a frail build and chronically ill. In no acute distress Selected Entries 03/12/19 03/12/19 03/12/19 09:41 12:04 12:06 Temperature 97.3 F Temperature Axillary Source Pulse Rate 66 Respiratory 18 Rate Blood Pressure 129/55 H Blood Pressure 79 Mean BP Location Right Arm BP Position Supine O2 Sat by Pulse 99 97 Oximetry Oxygen Delivery Nasal Cannula Method ( includes room air) Fraction of 28 24 Inspired Oxygen (FIO2) Oxygen Flow 2 Rate Oxygen Delivery Bipap Method HEAD: Is atraumatic normocephalic. EYES: Pupils pupils are equal round regular reactive to light and accommodation. Extraocular movements are normal. There is no conjunctival pallor. There is no scleral icterus. EARS: Tympanic membranes are intact. External canals are clear. NOSE: There is no deviated nasal septum. There is no inflammation of the nasal mucous membrane. MOUTH: Mucous membranes of mouth are moist. There is no ulcers. There is no bleeding from gums. THROAT: There is no redness of the oropharynx there is no exudates. Skin: There is no skin rashes there is no petechia or ecchymosis. NECK: Supple. There is mild JVD present. There is transmitted aortic regurgitation murmur heard over both carotids. There is no carotid bruit. There is mild carotid delay bilaterally. There is no lymphadenopathy. There is no goiter. There is no accessory muscle respiration use. LUNGS: There is absent breath sounds and dullness in both bases. There is also about this area few bibasilar rales of CHF. There is also bilateral dry crackles left more than right. The rest of the lungs are clear. HEART: S1-S2 is heard. There is no S3 gallop. There is no S4 gallop. There is systolic murmur left sternal border and the apex there is no rub. There is movement of aortic stenosis murmur. A2 is preserved. There is mild carotid delay. There is no aortic thrill felt. His murmur of mitral regurgitation and tricuspid regurgitation present. There is no rub. ABDOMEN: Soft. There is no hepatosplenomegaly. Bowel sounds are well heard. EXTREMITIES: Femorals are diminished. There is faint bilateral femoral bruits. Legs pulses diminished. There is no pedal edema. There is no DVT or cellulitis. There is no calf tenderness. ILLNESS: The patient is conscious awake, slightly drowsy but oriented x3. PSYCHIATRIC: Patient judgment insight seem to be intact. She is not agitated or anxious. Labs- All tests 24 hr 03/12/19 16:48 Stool Occult Blood POSITIVE Chest X-Ray 03/06/19 05:04 IMPRESSION: Tiny bibasilar effusions and/or pleural thickening. Equivocal retrocardiac airspace opacity. copyright 2011 [employer]- All Rights Reserved Chest X-Ray 03/07/19 00:00 IMPRESSION: Worsening basilar aeration. Chest X-Ray 03/10/19 00:00 IMPRESSION: Significant improved aeration of the lung bases. Residual opacities most prominent on the left. Chest X-Ray 03/12/19 00:00 IMPRESSION: Small left pleural effusion and decreased opacification of the left lower lobe. IMPRESSION/RECOMMENDATION: 1. Acute on chronic biventricular systolic failure. [Acute on chronic right ventricle (systolic failure]. Chest x-ray is much improved shows resolution of right pleural effusion. Continue current treatment. Note that the patient's ABG shows elevated CO2, which could explain the patient's drowsiness. 2. Cannot exclude left lower lobe pneumonia. Continue antibiotics. 3. Aortic stenosis most likely moderate. But need to reassess the patient's aortic valve gradient if the patient EF improves. 4. 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 5. Hypertension: Blood pressure well controlled 6. Coronary artery disease by history: No angina no [place] this admission. 7. Severe pulmonary hypertension: Most likely cause of the patient's right heart failure. Right heart failure is secondary to left heart failure. Causing significant pulmonary hypertension. And also secondary to valvular disease. 8. Moderate tricuspid regurgitation, and moderate mitral regurgitation. 9. Mild to moderate aortic regurgitation. 10. COPD: Continue bronchodilator treatment and antibiotics. Medications reviewed medication regimen and management plan discussed with attending physician. Medical decision making is of moderate complexity. 40 minutes spent as patient more than 50% of time spent direct patient care. Will follow.
--- NOTE | 2019-03-12 20:13 | PDOC PROGRESS REPORT ---
Subjective Progress Note for:: 03/12/19 Subjective:: Patient is more engaging today. Used BiPAP overnight. Oral intake comparatively better. No chest pain. No nausea, vomiting, or abdominal pain. No reported fever or chills. Seen by speech therapist earlier today with recommendation for perioral muscle exercise. Reason For Visit: ACUTE CHF Physical Exam Vital Signs: Temp Pulse Resp BP Pulse Ox 98.2 F 70 17 149/66 H 99 03/12/19 07:50 03/12/19 14:00 03/12/19 12:04 03/12/19 07:50 03/12/19 09:41 Intake & Output 03/11/19 03/12/19 03/13/19 06:59 06:59 06:59 Intake Total 430 670 50 Output Total 1775 925 Balance -1345 -255 50 Weight 66 kg 66.2 kg General appearance: PRESENT: no acute distress Head exam: PRESENT: atraumatic, normocephalic Eye exam: PRESENT: conjunctiva pink. ABSENT: scleral icterus Ear exam: PRESENT: normal external ear exam Mouth exam: PRESENT: moist Respiratory exam: PRESENT: decreased breath sounds Cardiovascular exam: PRESENT: RRR. ABSENT: diastolic murmur, rubs, systolic murmur GI/Abdominal exam: PRESENT: normal bowel sounds, soft. ABSENT: distended, guarding, mass, organolmegaly, rebound, tenderness Extremities exam: ABSENT: pedal edema - LUE from lymphedema Neurological exam: PRESENT: alert, awake, oriented to person, oriented to place, oriented to time, oriented to situation Psychiatric exam: PRESENT: appropriate affect, normal mood. ABSENT: homicidal ideation, suicidal ideation Skin exam: PRESENT: dry, warm Results Laboratory Results: 03/09/19 04:51 03/11/19 19:06 03/11/19 03/11/19 03/12/19 19:06 19:06 16:48 Sodium 138.0 Potassium 4.2 Chloride 94 L Carbon Dioxide 36 H Anion Gap 8 BUN 20 Creatinine 1.00 Est GFR ( Amer) > 60 Glucose 123 H Calcium 9.1 Magnesium 2.0 Stool Occult Blood POSITIVE 03/06/19 03/06/19 03/06/19 05:10 05:10 08:15 Creatine Kinase < 20 L CK-MB (CK-2) 0.58 Troponin I 0.023 0.034 NT-Pro-B Natriuret Pep [id number] H Impressions: Chest X-Ray 03/12/19 00:00 IMPRESSION: Small left pleural effusion and decreased opacification of the left lower lobe. Assessment & Plan - Diagnosis (1) Acute systolic (congestive) heart failure Is this a current diagnosis for this admission?: Yes (2) Chronic diastolic CHF (congestive heart failure) Is this a current diagnosis for this admission?: Yes (3) COPD (chronic obstructive pulmonary disease) Qualifiers: COPD type: unspecified COPD Qualified Code(s): J44.9 - Chronic obstructive pulmonary disease, unspecified Is this a current diagnosis for this admission?: Yes (4) Essential hypertension Is this a current diagnosis for this admission?: Yes (5) CAD (coronary artery disease) Qualifiers: Coronary Disease-Associated Artery/Lesion type: [place] artery [place] vs. transplanted heart: [place] heart Associated angina: with unstable angina Qualified Code(s): I25.110 - Atherosclerotic heart disease of [place] coronary artery with unstable angina pectoris Is this a current diagnosis for this admission?: Yes (6) Hyperlipidemia Qualifiers: Hyperlipidemia type: unspecified Qualified Code(s): E78.5 - Hyperlipidemia, unspecified Is this a current diagnosis for this admission?: Yes (7) Hypokalemia Is this a current diagnosis for this admission?: Yes (8) Essential tremor Is this a current diagnosis for this admission?: Yes (9) Stercoral ulcer of rectum Is this a current diagnosis for this admission?: Yes Plan: Possible cause of her positive occult stool test as well as possible chronic blood loss. Obtain CBC with diff in am. - Time Time Spent with patient: 35 or more minutes Level of Care: IMCU Medications reviewed and adjusted accordingly: Yes Anticipated discharge: Home with Homehealth Within: Other - Inpatient Certification Based on my medical assessment, after consideration of the patient's comorbidities, presenting symptoms, or acuity I expect that the services needed warrant INPATIENT care.: Yes I certify that my determination is in accordance with my understanding of Medicare's requirements for reasonable and necessary INPATIENT services [42 CFR 412.3e].: Yes Medical Necessity: Significant Comorbidiites Make Outpatient Treatment Too Risky, Need Close Monitoring Due to Risk of Patient Decompensation, Need For Continuous Telemetry Monitoring, Need for IV Antibiotics, Risk of Complication if Not Cared For in Hospital, Risk of Diagnosis Which Will Require Inpatient Eval/Care/Monitoring 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
[2019-03-12] MEDS: SERTRALINE HCL 50 MG TABLET PO SCH (21:15)
[2019-03-12] MEDS: ATORVASTATIN CALCIUM 20 MG TABLET PO SCH (21:16)
[2019-03-12] MEDS: DONEPEZIL HCL 5 MG TABLET PO SCH (21:16)
[2019-03-12] MEDS: FAMOTIDINE 20 MG TABLET PO SCH (21:16)
[2019-03-13] MEDS: PANTOPRAZOLE SODIUM 40 MG TABLET.DR PO SCH (05:14)
[2019-03-13 05:23] LABS: ABSOLUTE EOSINOPHILS # (AUTO) 0.1 10^3/uL (0.0-0.6); ABSOLUTE LYMPHOCYTES (AUTO) 1.3 10^3/uL (0.5-4.7); ABSOLUTE MONOCYTES (AUTO) 0.3 10^3/uL (0.1-1.4); ABSOLUTE NEUT (AUTO) 2.4 10^3/uL (1.7-8.2); BASOPHILS % (AUTO) 0.3 % (0-2); EOSINOPHILS % (AUTO) 2.1 % (0-6); HEMATOCRIT 29.2 % (36.0-47.0); HEMOGLOBIN 9.1 g/dL (12.0-15.5); LYMPHOCYTES % (AUTO) 31.7 % (13-45); MEAN CORPUSCULAR HEMOGLOBIN 24.9 pg (27.0-33.4); MEAN CORPUSCULAR HGB CONC 31.2 g/dL (32.0-36.0); MEAN CORPUSCULAR VOLUME 80 fl (80-97); MONOCYTES % (AUTO) 7.6 % (3-13); PLATELET COUNT 213 10^3/uL (150-450); RED BLOOD COUNT 3.65 10^6/uL (3.72-5.28); RED CELL DISTRIBUTION WIDTH 15.3 % (11.5-14.0); SEGMENTED NEUTROPHILS % (AUTO) 58.3 % (42-78); TOTAL CELLS COUNTED % (AUTO) 100 %; WHITE BLOOD COUNT 4.1 10^3/uL (4.0-10.5)
[2019-03-13 05:40] LABS: ALBUMIN 2.8 g/dL (3.5-5.0); ALKALINE PHOSPHATASE 100 U/L (38-126); ASPARTATE AMINO TRANSFERASE 15 U/L (14-36); BILIRUBIN,DIRECT 0.3 mg/dL (0.0-0.4); BILIRUBIN,TOTAL 0.3 mg/dL (0.2-1.3); BLOOD UREA NITROGEN 25 mg/dL (7-20); CALCIUM 9.1 mg/dL (8.4-10.2); CARBON DIOXIDE 39 mmol/L (22-30); GLUCOSE 94 mg/dL (75-110); TOTAL PROTEIN 5.9 g/dL (6.3-8.2)
[2019-03-13 05:45] LABS: CHLORIDE 97 mmol/L (98-107)
[2019-03-13 05:48] LABS: ANION GAP 3 (5-19)
[2019-03-13] MEDS: CARVEDILOL 12.5 MG TABLET PO SCH ×2 (11:01→22:37)
[2019-03-13] MEDS: DOCUSATE SODIUM 100 MG CAPSULE PO SCH ×2 (11:01→17:11)
[2019-03-13] MEDS: FERROUS SULFATE 325 MG TABLET PO SCH (11:02)
[2019-03-13] MEDS: AMLODIPINE BESYLATE 10 MG TABLET PO SCH (11:02)
[2019-03-13] MEDS: FUROSEMIDE 40 MG TABLET PO SCH (11:03)
[2019-03-13] MEDS: LISINOPRIL 10 MG TABLET PO SCH ×2 (11:03→22:37)
[2019-03-13] MEDS: SUCRALFATE 1 GM TABLET PO SCH ×4 (11:03→22:38)
[2019-03-13] MEDS: POLYETHYLENE GLYCOL 3350 POWDER 17 GM/1 PACKET PO SCH (11:04)
[2019-03-13] MEDS: CEFEPIME 1 GM/D5W RTU 1 GM/50 ML RTUPB IV SCH ×2 (11:06→22:36)
[2019-03-13] MEDS: CARBAMAZEPINE 200 MG TABLET PO SCH ×2 (11:07→22:39)
[2019-03-13] MEDS: POTASSIUM CHLORIDE 20 MEQ PACKET PO SCH (11:09)
--- NOTE | 2019-03-13 15:07 | PDOC PROGRESS REPORT ---
Subjective Progress Note for:: 03/13/19 Subjective:: No chest pain or difficulty with breathing. Son at bedside reported some improvement in her energy level. No nausea, vomiting, or abdominal pain. No reported fever or chills. Reason For Visit: ACUTE CHF Physical Exam Vital Signs: Temp Pulse Resp BP Pulse Ox 97.3 F 70 16 160/64 H 93 03/13/19 07:39 03/13/19 07:39 03/13/19 07:39 03/13/19 07:39 03/13/19 07:39 Intake & Output 03/12/19 03/13/19 03/14/19 06:59 06:59 06:59 Intake Total 670 100 Output Total 925 750 Balance -255 -650 Weight 66.2 kg 66.1 kg Physical Exam: General appearance: PRESENT: no acute distress Head exam: PRESENT: atraumatic, normocephalic Eye exam: PRESENT: conjunctiva pink. ABSENT: pallor, scleral icterus Ear exam: PRESENT: normal external ear exam Mouth exam: PRESENT: moist Respiratory exam: PRESENT: decreased breath sounds Cardiovascular exam: PRESENT: RRR. ABSENT: diastolic murmur, rubs, systolic murmur GI/Abdominal exam: PRESENT: normal bowel sounds, soft. ABSENT: distended, guarding, mass, organomegaly, rebound, tenderness Extremities exam: ABSENT: pedal edema - LUE from lymphedema Neurological exam: PRESENT: alert, awake, oriented to person, oriented to place, oriented to time, oriented to situation Psychiatric exam: PRESENT: appropriate affect, normal mood. ABSENT: homicidal ideation, suicidal ideation Skin exam: PRESENT: dry, warm Results Laboratory Results: 03/13/19 04:40 03/13/19 04:40 03/12/19 03/13/19 03/13/19 16:48 04:40 04:40 WBC 4.1 RBC 3.65 L Hgb 9.1 L Hct 29.2 L MCV 80 MCH 24.9 L MCHC 31.2 L RDW 15.3 H Plt Count 213 Seg Neutrophils % 58.3 Sodium 138.9 Potassium 4.0 Chloride 97 L Carbon Dioxide 39 H Anion Gap 3 L BUN 25 H Creatinine 1.28 H Est GFR ( Amer) 48 L Glucose 94 Calcium 9.1 Total Bilirubin 0.3 AST 15 Alkaline Phosphatase 100 Total Protein 5.9 L Albumin 2.8 L Stool Occult Blood POSITIVE 03/06/19 03/06/19 03/06/19 05:10 05:10 08:15 Creatine Kinase < 20 L CK-MB (CK-2) 0.58 Troponin I 0.023 0.034 NT-Pro-B Natriuret Pep [id number] H Impressions: Chest X-Ray 03/12/19 00:00 IMPRESSION: Small left pleural effusion and decreased opacification of the left lower lobe. Assessment & Plan - Diagnosis (1) Acute systolic (congestive) heart failure Is this a current diagnosis for this admission?: Yes (2) Chronic diastolic CHF (congestive heart failure) Is this a current diagnosis for this admission?: Yes (3) COPD (chronic obstructive pulmonary disease) Qualifiers: COPD type: unspecified COPD Qualified Code(s): J44.9 - Chronic obstructive pulmonary disease, unspecified Is this a current diagnosis for this admission?: Yes (4) Essential hypertension Is this a current diagnosis for this admission?: Yes (5) CAD (coronary artery disease) Qualifiers: Coronary Disease-Associated Artery/Lesion type: [place] artery [place] vs. transplanted heart: [place] heart Associated angina: with unstable angina Qualified Code(s): I25.110 - Atherosclerotic heart disease of [place] coronary artery with unstable angina pectoris Is this a current diagnosis for this admission?: Yes (6) Hyperlipidemia Qualifiers: Hyperlipidemia type: unspecified Qualified Code(s): E78.5 - Hyperlipidemia, unspecified Is this a current diagnosis for this admission?: Yes (7) Hypokalemia Is this a current diagnosis for this admission?: Yes (8) Essential tremor Is this a current diagnosis for this admission?: Yes (9) Stercoral ulcer of rectum Is this a current diagnosis for this admission?: Yes - Time Time Spent with patient: 25-34 minutes Level of Care: IMCU Medications reviewed and adjusted accordingly: Yes Anticipated discharge: Home with Homehealth Within: Other - Inpatient Certification Based on my medical assessment, after consideration of the patient's comorbidities, presenting symptoms, or acuity I expect that the services needed warrant INPATIENT care.: Yes I certify that my determination is in accordance with my understanding of Medicare's requirements for reasonable and necessary INPATIENT services [42 CFR 412.3e].: Yes Medical Necessity: Significant Comorbidiites Make Outpatient Treatment Too Risky, Need Close Monitoring Due to Risk of Patient Decompensation, Need For IV Fluids, Need For Continuous Telemetry Monitoring, Need for IV Antibiotics, Risk of Complication if Not Cared For in Hospital, Risk of Diagnosis Which Will Require Inpatient Eval/Care/Monitoring - Plan Summary Plan Summary: Continue on IV Cefepime coverage. Decrease Primidone to 50 mg p.o qid. Continue rehabilitation efforts. Patient do not have any more SNF benefit for the year as per health care social worker documentation. We will continue to work on home health serves upon discharge.
[2019-03-13] MEDS: PRIMIDONE 50 MG TABLET PO SCH ×2 (17:11→22:37)
--- NOTE | 2019-03-13 18:31 | Progress Note ---
Provider Note Provider Note: CARDIOLOGY PROGRESS NOTE by Dr. Estefany Degroot on 03/13/2019. SUBJECTIVE: The patient denies any chest pain discomfort. She complains of tremors and generalized weakness. There is no PND orthopnea. Her cough is much improved. There is no TIA CVA symptoms. There is no arrhythmia seen on the monitor. Physical EXAMINATION: The patient is a frail build and appears to be chronically ill Selected Entries 03/13/19 03/13/19 12:49 13:00 Temperature 97.4 F Temperature Axillary Source Heart Rate ( 66 Monitors) Respiratory 16 Rate Blood Pressure 129/56 H Blood Pressure 80 Mean BP Location Right Arm BP Position Supine O2 Sat by Pulse 100 Oximetry Oxygen Flow 2.00 Rate Oxygen Delivery Nasal Cannula Method HEAD: Is atraumatic normocephalic. EYES: Pupils pupils are equal round regular reactive to light and accommodation. Extraocular movements are normal. There is no conjunctival pallor. There is no scleral icterus. EARS: Tympanic membranes are intact. External canals are clear. NOSE: There is no deviated nasal septum. There is no inflammation of the nasal mucous membrane. MOUTH: Mucous membranes of mouth are moist. There is no ulcers. There is no bleeding from gums. THROAT: There is no redness of the oropharynx there is no exudates. Skin: There is no skin rashes there is no petechia or ecchymosis. NECK: Supple. There is mild JVD present. There is transmitted aortic regurgitation murmur heard over both carotids. There is no carotid bruit. There is mild carotid delay bilaterally. There is no lymphadenopathy. There is no goiter. There is no accessory muscle respiration use. LUNGS: A few crackles in the left base. There is diminished air entry and prolonged expiration. On percussion there is hyperresonance. There is no rales of CHF. HEART: S1-S2 is heard. There is no S3 gallop. There is no S4 gallop. There is systolic murmur left sternal border and the apex there is no rub. There is movement of aortic stenosis murmur. A2 is preserved. There is mild carotid delay. There is no aortic thrill felt. His murmur of mitral regurgitation and tricuspid regurgitation present. There is no rub. ABDOMEN: Soft. There is no hepatosplenomegaly. Bowel sounds are well heard. EXTREMITIES: Femorals are diminished. There is faint bilateral femoral bruits. Legs pulses diminished. There is no pedal edema. There is no DVT or cellulitis. There is no calf tenderness. ILLNESS: The patient is conscious awake, slightly drowsy but oriented x3. PSYCHIATRIC: Patient judgment insight seem to be intact. She is not agitated or anxious. Labs- All tests 24 hr 03/13/19 03/13/19 04:40 04:40 WBC 4.1 RBC 3.65 L Hgb 9.1 L Hct 29.2 L MCV 80 MCH 24.9 L MCHC 31.2 L RDW 15.3 H Plt Count 213 Lymph % (Auto) 31.7 Edgar % (Auto) 7.6 Eos % (Auto) 2.1 Baso % (Auto) 0.3 Absolute Neuts (auto) 2.4 Absolute Lymphs (auto) 1.3 Absolute Monos (auto) 0.3 Absolute Eos (auto) 0.1 Absolute Basos (auto) 0.0 Seg Neutrophils % 58.3 Sodium 138.9 Potassium 4.0 Chloride 97 L Carbon Dioxide 39 H Anion Gap 3 L BUN 25 H Creatinine 1.28 H Est GFR ( Amer) 48 L Est GFR (MDRD) Non-Af 40 L Glucose 94 Calcium 9.1 Total Bilirubin 0.3 Direct Bilirubin 0.3 Neonat Total Bilirubin Not Reportable Neonat Direct Bilirubin Not Reportable Neonat Indirect Bili Not Reportable AST 15 ALT 8 Alkaline Phosphatase 100 Total Protein 5.9 L Albumin 2.8 L Chest X-Ray 03/06/19 05:04 IMPRESSION: Tiny bibasilar effusions and/or pleural thickening. Equivocal retrocardiac airspace opacity. copyright 2010 [employer]- All Rights Reserved Chest X-Ray 03/07/19 00:00 IMPRESSION: Worsening basilar aeration. Chest X-Ray 03/10/19 00:00 IMPRESSION: Significant improved aeration of the lung bases. Residual opacities most prominent on the left. Chest X-Ray 03/12/19 00:00 IMPRESSION: Small left pleural effusion and decreased opacification of the left lower lobe. IMPRESSION/RECOMMENDATION: 1. Acute on chronic biventricular systolic failure. [Acute on chronic right ventricle (systolic failure]. Chest x-ray is much improved shows resolution of right pleural effusion. Continue current treatment. Note that the patient's ABG shows elevated CO2, which could explain the patient's drowsiness. 2. Cannot exclude left lower lobe pneumonia. Continue antibiotics. 3. Aortic stenosis most likely moderate. But need to reassess the patient's aortic valve gradient if the patient EF improves. 4. 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 5. Hypertension: Blood pressure well controlled 6. Coronary artery disease by history: No angina no [place] this admission. 7. Severe pulmonary hypertension: Most likely cause of the patient's right heart failure. Right heart failure is secondary to left heart failure. Causing significant pulmonary hypertension. And also secondary to valvular disease. 8. Moderate tricuspid regurgitation, and moderate mitral regurgitation. 9. Mild to moderate aortic regurgitation. 10. COPD: Continue bronchodilator treatment and antibiotics. Medications reviewed medication regimen and management plan discussed with attending physician. Medical decision making is of moderate complexity. 40 minutes spent as patient more than 50% of time spent direct patient care. Card iac status is stable. As discussed with Dr. Celaya will sign off and follow the patient in the office. Thank you for allowing me to participate in the care of this patient
[2019-03-13] MEDS: ATORVASTATIN CALCIUM 20 MG TABLET PO SCH (22:37)
[2019-03-13] MEDS: DONEPEZIL HCL 5 MG TABLET PO SCH (22:38)
[2019-03-13] MEDS: FAMOTIDINE 20 MG TABLET PO SCH (22:38)
[2019-03-13] MEDS: SERTRALINE HCL 50 MG TABLET PO SCH (22:38)
[2019-03-14] MEDS: PANTOPRAZOLE SODIUM 40 MG TABLET.DR PO SCH (05:42)
[2019-03-14] MEDS: SUCRALFATE 1 GM TABLET PO SCH ×4 (15:49→21:08)
[2019-03-14] MEDS: PRIMIDONE 50 MG TABLET PO SCH ×4 (15:50→21:08)
[2019-03-14] MEDS: POTASSIUM CHLORIDE 20 MEQ PACKET PO SCH (15:52)
[2019-03-14] MEDS: AMLODIPINE BESYLATE 10 MG TABLET PO SCH (15:52)
[2019-03-14] MEDS: POLYETHYLENE GLYCOL 3350 POWDER 17 GM/1 PACKET PO SCH (15:52)
[2019-03-14] MEDS: LISINOPRIL 10 MG TABLET PO SCH ×2 (15:53→21:09)
[2019-03-14] MEDS: CARBAMAZEPINE 200 MG TABLET PO SCH ×2 (15:53→21:10)
[2019-03-14] MEDS: FUROSEMIDE 40 MG TABLET PO SCH (15:54)
[2019-03-14] MEDS: CARVEDILOL 12.5 MG TABLET PO SCH ×2 (15:54→21:09)
[2019-03-14] MEDS: DOCUSATE SODIUM 100 MG CAPSULE PO SCH ×2 (15:54→18:21)
[2019-03-14] MEDS: FERROUS SULFATE 325 MG TABLET PO SCH (15:54)
[2019-03-14] MEDS: CEFEPIME 1 GM/D5W RTU 1 GM/50 ML RTUPB IV SCH (15:55)
[2019-03-14] MEDS ORDERED: CEFEPIME 1 GM/D5W RTU 1 GM/50 ML RTUPB IV ONE (16:30)
--- NOTE | 2019-03-14 16:47 | PDOC PROGRESS REPORT ---
Subjective Progress Note for:: 03/14/19 Subjective:: No chest pain or difficulty with breathing. No nausea, vomiting, or abdominal pain. No reported fever or chills. Patient participated in bedside PT session today. Reason For Visit: ACUTE CHF Physical Exam Vital Signs: Temp Pulse Resp BP Pulse Ox 97.7 F 72 14 141/57 H 100 03/14/19 08:11 03/14/19 14:00 03/14/19 08:11 03/14/19 08:11 03/14/19 08:11 Intake & Output 03/13/19 03/14/19 03/15/19 06:59 06:59 06:59 Intake Total 100 1170 480 Output Total 750 1470 400 Balance -650 -300 80 Weight 66.1 kg 65.3 kg 65.3 kg General appearance: PRESENT: no acute distress Head exam: PRESENT: atraumatic, normocephalic Eye exam: PRESENT: conjunctiva pink. ABSENT: scleral icterus Ear exam: PRESENT: normal external ear exam Mouth exam: PRESENT: moist Respiratory exam: PRESENT: clear to auscultation ulysses, decreased breath sounds - at lung bases Cardiovascular exam: PRESENT: RRR, systolic murmur. ABSENT: diastolic murmur, rubs Murmur grade: 3 Vascular exam: ABSENT: pallor GI/Abdominal exam: PRESENT: normal bowel sounds, soft. ABSENT: distended, guarding, mass, organolmegaly, rebound, tenderness Extremities exam: ABSENT: pedal edema Neurological exam: PRESENT: alert, awake, oriented to person, oriented to place, oriented to situation, CN II-XII grossly intact. ABSENT: motor sensory deficit Psychiatric exam: PRESENT: appropriate affect, normal mood. ABSENT: homicidal ideation, suicidal ideation Skin exam: PRESENT: dry, warm Results Laboratory Results: 03/13/19 04:40 03/13/19 04:40 03/06/19 03/06/19 03/06/19 05:10 05:10 08:15 Creatine Kinase < 20 L CK-MB (CK-2) 0.58 Troponin I 0.023 0.034 NT-Pro-B Natriuret Pep [id number] H Impressions: Chest X-Ray 03/12/19 00:00 IMPRESSION: Small left pleural effusion and decreased opacification of the left lower lobe. Assessment & Plan - Diagnosis (1) Acute systolic (congestive) heart failure Is this a current diagnosis for this admission?: Yes (2) Chronic diastolic CHF (congestive heart failure) Is this a current diagnosis for this admission?: Yes (3) COPD (chronic obstructive pulmonary disease) Qualifiers: COPD type: unspecified COPD Qualified Code(s): J44.9 - Chronic obstructive pulmonary disease, unspecified Is this a current diagnosis for this admission?: Yes (4) Essential hypertension Is this a current diagnosis for this admission?: Yes (5) CAD (coronary artery disease) Qualifiers: Coronary Disease-Associated Artery/Lesion type: [place] artery [place] vs. transplanted heart: [place] heart Associated angina: with unstable angina Qualified Code(s): I25.110 - Atherosclerotic heart disease of [place] coronary artery with unstable angina pectoris Is this a current diagnosis for this admission?: Yes (6) Hyperlipidemia Qualifiers: Hyperlipidemia type: unspecified Qualified Code(s): E78.5 - Hyperlipidemia, unspecified Is this a current diagnosis for this admission?: Yes (7) Hypokalemia Is this a current diagnosis for this admission?: Yes (8) Essential tremor Is this a current diagnosis for this admission?: Yes (9) Stercoral ulcer of rectum Is this a current diagnosis for this admission?: Yes - Time Time Spent with patient: 35 or more minutes Level of Care: IMCU Medications reviewed and adjusted accordingly: Yes Anticipated discharge: Home with Homehealth Within: Other - Inpatient Certification Based on my medical assessment, after consideration of the patient's comorbidities, presenting symptoms, or acuity I expect that the services needed warrant INPATIENT care.: Yes I certify that my determination is in accordance with my understanding of Medicare's requirements for reasonable and necessary INPATIENT services [42 CFR 412.3e].: Yes Medical Necessity: Significant Comorbidiites Make Outpatient Treatment Too Risky, Need Close Monitoring Due to Risk of Patient Decompensation, Need For Continuous Telemetry Monitoring, Need for IV Antibiotics, Risk of Complication if Not Cared For in Hospital, Risk of Diagnosis Which Will Require Inpatient Eval/Care/Monitoring Post 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 Repeat BMP and CBC with diff in AM
[2019-03-14] MEDS: ATORVASTATIN CALCIUM 20 MG TABLET PO SCH (21:09)
[2019-03-14] MEDS: DONEPEZIL HCL 5 MG TABLET PO SCH (21:09)
[2019-03-14] MEDS: SERTRALINE HCL 50 MG TABLET PO SCH (21:09)
[2019-03-14] MEDS: FAMOTIDINE 20 MG TABLET PO SCH (21:09)
[2019-03-15] MEDS: CEFEPIME 1 GM/D5W RTU 1 GM/50 ML RTUPB IV SCH ×2 (06:00→17:32)
[2019-03-15] MEDS: PANTOPRAZOLE SODIUM 40 MG TABLET.DR PO SCH (06:01)
[2019-03-15] MEDS: POTASSIUM CHLORIDE 20 MEQ PACKET PO SCH (09:18)
[2019-03-15] MEDS: CARVEDILOL 12.5 MG TABLET PO SCH ×2 (09:18→21:13)
[2019-03-15] MEDS: FERROUS SULFATE 325 MG TABLET PO SCH (09:18)
[2019-03-15] MEDS: SUCRALFATE 1 GM TABLET PO SCH ×4 (09:18→21:14)
[2019-03-15] MEDS: CARBAMAZEPINE 200 MG TABLET PO SCH ×2 (09:18→21:11)
[2019-03-15] MEDS: DOCUSATE SODIUM 100 MG CAPSULE PO SCH ×2 (09:18→17:32)
[2019-03-15] MEDS: AMLODIPINE BESYLATE 10 MG TABLET PO SCH (09:19)
[2019-03-15] MEDS: PRIMIDONE 50 MG TABLET PO SCH ×4 (09:19→21:12)
[2019-03-15] MEDS: LISINOPRIL 10 MG TABLET PO SCH ×2 (09:19→21:12)
[2019-03-15] MEDS: POLYETHYLENE GLYCOL 3350 POWDER 17 GM/1 PACKET PO SCH (09:19)
[2019-03-15] MEDS: FUROSEMIDE 40 MG TABLET PO SCH (09:19)
--- NOTE | 2019-03-15 18:39 | PDOC PROGRESS REPORT ---
Subjective Progress Note for:: 03/15/19 Subjective:: Patient seen by the bedside she has no new complaints Reason For Visit: ACUTE CHF Physical Exam Vital Signs: Temp Pulse Resp BP Pulse Ox 98.4 F 63 16 106/47 L 97 03/15/19 11:51 03/15/19 11:51 03/15/19 11:51 03/15/19 11:51 03/15/19 11:51 Intake & Output 03/14/19 03/15/19 03/16/19 06:59 06:59 06:59 Intake Total 1170 890 530 Output Total 1470 575 Balance -300 315 530 Weight 65.3 kg 65.6 kg General appearance: PRESENT: no acute distress Eye exam: PRESENT: PERRLA Respiratory exam: PRESENT: clear to auscultation ulysses Cardiovascular exam: PRESENT: +S1, +S2 Murmur grade: 3 GI/Abdominal exam: PRESENT: soft Neurological exam: PRESENT: alert, CN II-XII grossly intact Results Laboratory Results: 03/13/19 04:40 03/13/19 04:40 03/06/19 03/06/19 03/06/19 05:10 05:10 08:15 Creatine Kinase < 20 L CK-MB (CK-2) 0.58 Troponin I 0.023 0.034 NT-Pro-B Natriuret Pep [id number] H Impressions: Chest X-Ray 03/12/19 00:00 IMPRESSION: Small left pleural effusion and decreased opacification of the left lower lobe. Assessment & Plan - Diagnosis (1) Acute systolic (congestive) heart failure Is this a current diagnosis for this admission?: Yes (2) CAD (coronary artery disease) Qualifiers: Coronary Disease-Associated Artery/Lesion type: [place] artery [place] vs. transplanted heart: [place] heart Associated angina: with unstable angina Qualified Code(s): I25.110 - Atherosclerotic heart disease of [place] coronary artery with unstable angina pectoris Is this a current diagnosis for this admission?: Yes (3) COPD (chronic obstructive pulmonary disease) Qualifiers: COPD type: unspecified COPD Qualified Code(s): J44.9 - Chronic obstructive pulmonary disease, unspecified Is this a current diagnosis for this admission?: Yes (4) Essential hypertension Is this a current diagnosis for this admission?: Yes - Time Time Spent with patient: 25-34 minutes - Plan Summary Plan Summary: continue treatment
[2019-03-15] MEDS: SERTRALINE HCL 50 MG TABLET PO SCH (21:13)
[2019-03-15] MEDS: DONEPEZIL HCL 5 MG TABLET PO SCH (21:13)
[2019-03-15] MEDS: ATORVASTATIN CALCIUM 20 MG TABLET PO SCH (21:14)
[2019-03-15] MEDS: FAMOTIDINE 20 MG TABLET PO SCH (21:14)
[2019-03-16 04:47] LABS: ABSOLUTE EOSINOPHILS # (AUTO) 0.1 10^3/uL (0.0-0.6); ABSOLUTE LYMPHOCYTES (AUTO) 1.1 10^3/uL (0.5-4.7); ABSOLUTE MONOCYTES (AUTO) 0.3 10^3/uL (0.1-1.4); BASOPHILS % (AUTO) 0.4 % (0-2); EOSINOPHILS % (AUTO) 3.3 % (0-6); HEMOGLOBIN 9.2 g/dL (12.0-15.5); LYMPHOCYTES % (AUTO) 30.7 % (13-45); MEAN CORPUSCULAR HEMOGLOBIN 26.2 pg (27.0-33.4); MEAN CORPUSCULAR HGB CONC 32.9 g/dL (32.0-36.0); MEAN CORPUSCULAR VOLUME 80 fl (80-97); MONOCYTES % (AUTO) 8.8 % (3-13); PLATELET COUNT 196 10^3/uL (150-450); RED BLOOD COUNT 3.51 10^6/uL (3.72-5.28); SEGMENTED NEUTROPHILS % (AUTO) 56.8 % (42-78); TOTAL CELLS COUNTED % (AUTO) 100 %; WHITE BLOOD COUNT 3.5 10^3/uL (4.0-10.5)
[2019-03-16 05:12] LABS: ANION GAP 5 (5-19); BLOOD UREA NITROGEN 27 mg/dL (7-20); CALCIUM 9.2 mg/dL (8.4-10.2); CARBON DIOXIDE 35 mmol/L (22-30); CHLORIDE 99 mmol/L (98-107); GLUCOSE 92 mg/dL (75-110); POTASSIUM 3.6 mmol/L (3.6-5.0)
[2019-03-16] MEDS: CEFEPIME 1 GM/D5W RTU 1 GM/50 ML RTUPB IV SCH (05:12)
[2019-03-16] MEDS: PANTOPRAZOLE SODIUM 40 MG TABLET.DR PO SCH (05:13)
[2019-03-16] MEDS: DOCUSATE SODIUM 100 MG CAPSULE PO SCH ×2 (09:51→17:25)
[2019-03-16] MEDS: POLYETHYLENE GLYCOL 3350 POWDER 17 GM/1 PACKET PO SCH (09:52)
[2019-03-16] MEDS: SUCRALFATE 1 GM TABLET PO SCH ×4 (09:56→21:12)
[2019-03-16] MEDS: POTASSIUM CHLORIDE 20 MEQ PACKET PO SCH (09:57)
[2019-03-16] MEDS: FERROUS SULFATE 325 MG TABLET PO SCH (09:57)
[2019-03-16] MEDS: AMLODIPINE BESYLATE 10 MG TABLET PO SCH (09:57)
[2019-03-16] MEDS: LISINOPRIL 10 MG TABLET PO SCH ×2 (09:57→21:11)
[2019-03-16] MEDS: PRIMIDONE 50 MG TABLET PO SCH ×4 (09:57→21:09)
[2019-03-16] MEDS: FUROSEMIDE 40 MG TABLET PO SCH (09:57)
[2019-03-16] MEDS: CARBAMAZEPINE 200 MG TABLET PO SCH ×2 (09:57→21:09)
[2019-03-16] MEDS: CARVEDILOL 12.5 MG TABLET PO SCH ×2 (09:57→21:10)
--- NOTE | 2019-03-16 12:13 | PDOC PROGRESS REPORT ---
Subjective Progress Note for:: 03/16/19 Subjective:: Patient seen by the bedside, the daughter was in the room, she has had IV antibiotic for the last 8 days. Reason For Visit: ACUTE CHF Physical Exam Vital Signs: Temp Pulse Resp BP Pulse Ox 98.5 F 85 20 145/57 H 90 L 03/16/19 03:21 03/16/19 07:00 03/16/19 03:21 03/16/19 03:21 03/16/19 03:21 Intake & Output 03/15/19 03/16/19 03/17/19 06:59 06:59 06:59 Intake Total 890 990 Output Total 575 775 Balance 315 215 Weight 65.6 kg 65.4 kg General appearance: PRESENT: no acute distress Eye exam: PRESENT: PERRLA Respiratory exam: PRESENT: clear to auscultation ulysses Cardiovascular exam: PRESENT: +S1, +S2 Murmur grade: 3 GI/Abdominal exam: PRESENT: soft Neurological exam: PRESENT: alert, CN II-XII grossly intact Results Laboratory Results: 03/16/19 04:29 03/16/19 04:29 03/16/19 03/16/19 04:29 04:29 WBC 3.5 L RBC 3.51 L Hgb 9.2 L Hct 28.0 L MCV 80 MCH 26.2 L MCHC 32.9 RDW 15.0 H Plt Count 196 Seg Neutrophils % 56.8 Sodium 138.7 Potassium 3.6 Chloride 99 Carbon Dioxide 35 H Anion Gap 5 BUN 27 H Creatinine 1.21 Est GFR ( Amer) 51 L Glucose 92 Calcium 9.2 03/06/19 03/06/19 03/06/19 05:10 05:10 08:15 Creatine Kinase < 20 L CK-MB (CK-2) 0.58 Troponin I 0.023 0.034 NT-Pro-B Natriuret Pep 20978 H Impressions: Chest X-Ray 03/12/19 00:00 IMPRESSION: Small left pleural effusion and decreased opacification of the left lower lobe. Assessment & Plan - Diagnosis (1) Acute systolic (congestive) heart failure Is this a current diagnosis for this admission?: Yes (2) CAD (coronary artery disease) Qualifiers: Coronary Disease-Associated Artery/Lesion type: [place] artery [place] vs. transplanted heart: [place] heart Associated angina: with unstable angina Qualified Code(s): I25.110 - Atherosclerotic heart disease of [place] coronary artery with unstable angina pectoris Is this a current diagnosis for this admission?: Yes (3) COPD (chronic obstructive pulmonary disease) Qualifiers: COPD type: unspecified COPD Qualified Code(s): J44.9 - Chronic obstructive pulmonary disease, unspecified Is this a current diagnosis for this admission?: Yes (4) Essential hypertension Is this a current diagnosis for this admission?: Yes (5) Pneumonia Qualifiers: Pneumonia type: due to unspecified organism Laterality: unspecified laterality Lung location: unspecified part of lung Qualified Code(s): J18.9 - Pneumonia, unspecified organism Is this a current diagnosis for this admission?: Yes Plan: DC antibiotic - Time Time Spent with patient: 35 or more minutes Level of Care: IMCU
[2019-03-16] MEDS: SERTRALINE HCL 50 MG TABLET PO SCH (21:11)
[2019-03-16] MEDS: ATORVASTATIN CALCIUM 20 MG TABLET PO SCH (21:11)
[2019-03-16] MEDS: DONEPEZIL HCL 5 MG TABLET PO SCH (21:11)
[2019-03-16] MEDS: FAMOTIDINE 20 MG TABLET PO SCH (21:12)
[2019-03-17] MEDS: PANTOPRAZOLE SODIUM 40 MG TABLET.DR PO SCH (05:43)
[2019-03-17] MEDS: CARBAMAZEPINE 200 MG TABLET PO SCH ×2 (10:58→21:56)
[2019-03-17] MEDS: FERROUS SULFATE 325 MG TABLET PO SCH (10:58)
[2019-03-17] MEDS: LISINOPRIL 10 MG TABLET PO SCH ×2 (10:58→21:55)
[2019-03-17] MEDS: FUROSEMIDE 40 MG TABLET PO SCH (10:58)
[2019-03-17] MEDS: SUCRALFATE 1 GM TABLET PO SCH ×4 (10:58→21:54)
[2019-03-17] MEDS: AMLODIPINE BESYLATE 10 MG TABLET PO SCH (10:59)
[2019-03-17] MEDS: PRIMIDONE 50 MG TABLET PO SCH ×3 (10:59→20:07)
[2019-03-17] MEDS: CARVEDILOL 12.5 MG TABLET PO SCH ×2 (10:59→21:55)
[2019-03-17] MEDS: DOCUSATE SODIUM 100 MG CAPSULE PO SCH ×2 (10:59→18:24)
[2019-03-17] MEDS: POTASSIUM CHLORIDE 20 MEQ PACKET PO SCH (11:00)
[2019-03-17] MEDS: POLYETHYLENE GLYCOL 3350 POWDER 17 GM/1 PACKET PO SCH (11:00)
[2019-03-17] MEDS: PSYLLIUM SEED-SF 5.85 GM PACKET PO SCH (18:24)
[2019-03-17] MEDS: FAMOTIDINE 20 MG TABLET PO SCH (21:54)
[2019-03-17] MEDS: ATORVASTATIN CALCIUM 20 MG TABLET PO SCH (21:55)
[2019-03-17] MEDS: SERTRALINE HCL 50 MG TABLET PO SCH (21:55)
[2019-03-17] MEDS: DONEPEZIL HCL 5 MG TABLET PO SCH (21:55)
--- NOTE | 2019-03-17 22:26 | PDOC PROGRESS REPORT ---
Subjective Progress Note for:: 03/17/19 Subjective:: Patient reported participation in PT session. Appeared more engaging and energetic tonight. She denied any chest pain or difficulty with breathing. No nausea, vomiting, or abdominal pain. No reported fever or chills. Reason For Visit: ACUTE CHF Physical Exam Vital Signs: Temp Pulse Resp BP Pulse Ox 97.7 F 73 16 156/60 H 93 03/17/19 17:12 03/17/19 17:12 03/17/19 17:12 03/17/19 17:12 03/17/19 17:12 Intake & Output 03/16/19 03/17/19 03/18/19 06:59 06:59 06:59 Intake Total 990 720 590 Output Total 775 600 590 Balance 215 120 0 Weight 65.4 kg 67.1 kg Physical Exam: General appearance: PRESENT: no acute distress, remain on CPAP support Head exam: PRESENT: atraumatic, normocephalic Eye exam: PRESENT: conjunctiva pink. ABSENT: pallor, scleral icterus Ear exam: PRESENT: normal external ear exam Mouth exam: PRESENT: moist Respiratory exam: PRESENT: clear to auscultation ulysses, decreased breath sounds - at lung bases Cardiovascular exam: PRESENT: RRR, systolic murmur. ABSENT: diastolic murmur, rubs Murmur grade: 3 Vascular exam: ABSENT: pallor GI/Abdominal exam: PRESENT: normal bowel sounds, soft. ABSENT: distended, guarding, mass, organomegaly, rebound, tenderness Extremities exam: ABSENT: pedal edema Neurological exam: PRESENT: alert, awake, oriented to person, oriented to place, oriented to situation, CN II-XII grossly intact. ABSENT: motor sensory deficit Psychiatric exam: PRESENT: appropriate affect, normal mood. ABSENT: homicidal ideation, suicidal ideation Skin exam: PRESENT: dry, warm Murmur grade: 3 Results Laboratory Results: 03/16/19 04:29 03/16/19 04:29 03/06/19 03/06/19 03/06/19 05:10 05:10 08:15 Creatine Kinase < 20 L CK-MB (CK-2) 0.58 Troponin I 0.023 0.034 NT-Pro-B Natriuret Pep [id number] H Impressions: Chest X-Ray 03/12/19 00:00 IMPRESSION: Small left pleural effusion and decreased opacification of the left lower lobe. Assessment & Plan - Diagnosis (1) Acute systolic (congestive) heart failure Is this a current diagnosis for this admission?: Yes (2) Chronic diastolic CHF (congestive heart failure) Is this a current diagnosis for this admission?: Yes (3) COPD (chronic obstructive pulmonary disease) Qualifiers: COPD type: unspecified COPD Qualified Code(s): J44.9 - Chronic obstructive pulmonary disease, unspecified Is this a current diagnosis for this admission?: Yes (4) Essential hypertension Is this a current diagnosis for this admission?: Yes (5) CAD (coronary artery disease) Qualifiers: Coronary Disease-Associated Artery/Lesion type: [place] artery [place] vs. transplanted heart: [place] heart Associated angina: with unstable angina Qualified Code(s): I25.110 - Atherosclerotic heart disease of [place] coronary artery with unstable angina pectoris Is this a current diagnosis for this admission?: Yes (6) Hyperlipidemia Qualifiers: Hyperlipidemia type: unspecified Qualified Code(s): E78.5 - Hyperlipidemia, unspecified Is this a current diagnosis for this admission?: Yes (7) Hypokalemia Is this a current diagnosis for this admission?: Yes (8) Essential tremor Is this a current diagnosis for this admission?: Yes (9) Stercoral ulcer of rectum Is this a current diagnosis for this admission?: Yes - Time Time Spent with patient: 35 or more minutes Level of Care: IMCU Medications reviewed and adjusted accordingly: Yes Anticipated discharge: Home with Homehealth Within: Other - Inpatient Certification Based on my medical assessment, after consideration of the patient's comorbidities, presenting symptoms, or acuity I expect that the services needed warrant INPATIENT care.: Yes I certify that my determination is in accordance with my understanding of Medicare's requirements for reasonable and necessary INPATIENT services [42 CFR 412.3e].: Yes Medical Necessity: Significant Comorbidiites Make Outpatient Treatment Too Risky, Need Close Monitoring Due to Risk of Patient Decompensation, Need For Continuous Telemetry Monitoring, Risk of Complication if Not Cared For in Hospital, Risk of Diagnosis Which Will Require Inpatient Eval/Care/Monitoring Post Hospital 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 Obtain BMP, CBC, NT-Pro BNP in AM. I had extensive discussion with patient and daughter at bedside regarding PT/OT en gagement and possible discharge home on [employer] with same services upon discharge.
[2019-03-18] MEDS: PRIMIDONE 50 MG TABLET PO SCH ×5 (00:40→22:21)
[2019-03-18] MEDS: PANTOPRAZOLE SODIUM 40 MG TABLET.DR PO SCH (06:05)
[2019-03-18 08:39] LABS: ANION GAP 6 (5-19); BLOOD UREA NITROGEN 25 mg/dL (7-20); CALCIUM 9.7 mg/dL (8.4-10.2); CARBON DIOXIDE 33 mmol/L (22-30); CHLORIDE 101 mmol/L (98-107); GLUCOSE 95 mg/dL (75-110)
[2019-03-18 08:42] LABS: ABSOLUTE EOSINOPHILS # (AUTO) 0.1 10^3/uL (0.0-0.6); ABSOLUTE LYMPHOCYTES (AUTO) 1.2 10^3/uL (0.5-4.7); ABSOLUTE MONOCYTES (AUTO) 0.3 10^3/uL (0.1-1.4); ABSOLUTE NEUT (AUTO) 2.6 10^3/uL (1.7-8.2); BASOPHILS % (AUTO) 0.5 % (0-2); EOSINOPHILS % (AUTO) 2.3 % (0-6); HEMATOCRIT 29.7 % (36.0-47.0); HEMOGLOBIN 9.6 g/dL (12.0-15.5); LYMPHOCYTES % (AUTO) 28.1 % (13-45); MEAN CORPUSCULAR HEMOGLOBIN 25.8 pg (27.0-33.4); MEAN CORPUSCULAR HGB CONC 32.3 g/dL (32.0-36.0); MEAN CORPUSCULAR VOLUME 80 fl (80-97); MONOCYTES % (AUTO) 7.2 % (3-13); PLATELET COUNT 207 10^3/uL (150-450); RED BLOOD COUNT 3.73 10^6/uL (3.72-5.28); RED CELL DISTRIBUTION WIDTH 15.5 % (11.5-14.0); SEGMENTED NEUTROPHILS % (AUTO) 61.9 % (42-78); TOTAL CELLS COUNTED % (AUTO) 100 %; WHITE BLOOD COUNT 4.2 10^3/uL (4.0-10.5)
[2019-03-18] MEDS: CARVEDILOL 12.5 MG TABLET PO SCH ×2 (11:37→22:21)
[2019-03-18] MEDS: DOCUSATE SODIUM 100 MG CAPSULE PO SCH ×2 (11:38→17:50)
[2019-03-18] MEDS: FUROSEMIDE 40 MG TABLET PO SCH (11:38)
[2019-03-18] MEDS: LISINOPRIL 10 MG TABLET PO SCH ×2 (11:38→22:20)
[2019-03-18] MEDS: FERROUS SULFATE 325 MG TABLET PO SCH (11:39)
[2019-03-18] MEDS: SUCRALFATE 1 GM TABLET PO SCH ×4 (11:39→22:20)
[2019-03-18] MEDS: AMLODIPINE BESYLATE 10 MG TABLET PO SCH (11:40)
[2019-03-18] MEDS: CARBAMAZEPINE 200 MG TABLET PO SCH ×2 (11:41→22:19)
[2019-03-18] MEDS: PSYLLIUM SEED-SF 5.85 GM PACKET PO SCH ×2 (11:44→17:50)
[2019-03-18] MEDS: POLYETHYLENE GLYCOL 3350 POWDER 17 GM/1 PACKET PO SCH (11:44)
[2019-03-18] MEDS: POTASSIUM CHLORIDE 20 MEQ PACKET PO SCH (11:46)
--- NOTE | 2019-03-18 19:26 | PDOC PROGRESS REPORT ---
Subjective Progress Note for:: 03/18/19 Subjective:: She denied any chest pain or difficulty with breathing. No nausea, vomiting, or abdominal pain. No reported fever or chills. Reason For Visit: ACUTE CHF Physical Exam Vital Signs: Temp Pulse Resp BP Pulse Ox 97.6 F 71 16 132/57 H 97 03/18/19 15:37 03/18/19 15:37 03/18/19 15:37 03/18/19 15:37 03/18/19 15:37 Intake & Output 03/17/19 03/18/19 03/19/19 06:59 06:59 06:59 Intake Total 720 640 460 Output Total 600 1165 225 Balance 120 -525 235 Weight 67.1 kg 68.3 kg Physical Exam: General appearance: PRESENT: no acute distress, remain on CPAP support Head exam: PRESENT: atraumatic, normocephalic Eye exam: PRESENT: conjunctiva pink. ABSENT: pallor, scleral icterus Ear exam: PRESENT: normal external ear exam Mouth exam: PRESENT: moist Respiratory exam: PRESENT: clear to auscultation ulysses, decreased breath sounds - at lung bases Cardiovascular exam: PRESENT: RRR, systolic murmur. ABSENT: diastolic murmur, rubs Murmur grade: 3 Vascular exam: ABSENT: pallor GI/Abdominal exam: PRESENT: normal bowel sounds, soft. ABSENT: distended, guarding, mass, organomegaly, rebound, tenderness Extremities exam: ABSENT: pedal edema Neurological exam: PRESENT: alert, awake, oriented to person, oriented to place, oriented to situation, CN II-XII grossly intact. ABSENT: motor sensory deficit Psychiatric exam: PRESENT: appropriate affect, normal mood. ABSENT: homicidal ideation, suicidal ideation Skin exam: PRESENT: dry, warm Murmur grade: 3 Results Laboratory Results: 03/18/19 08:08 03/18/19 08:08 03/18/19 03/18/19 08:08 08:08 WBC 4.2 RBC 3.73 Hgb 9.6 L Hct 29.7 L MCV 80 MCH 25.8 L MCHC 32.3 RDW 15.5 H Plt Count 207 Seg Neutrophils % 61.9 Sodium 140.3 Potassium 4.0 Chloride 101 Carbon Dioxide 33 H Anion Gap 6 BUN 25 H Creatinine 1.27 H Est GFR ( Amer) 49 L Glucose 95 Calcium 9.7 03/06/19 03/06/19 03/06/19 05:10 05:10 08:15 Creatine Kinase < 20 L CK-MB (CK-2) 0.58 Troponin I 0.023 0.034 NT-Pro-B Natriuret Pep [id number] H 03/18/19 08:08 Creatine Kinase CK-MB (CK-2) Troponin I NT-Pro-B Natriuret Pep 9270 H Impressions: Chest X-Ray 03/12/19 00:00 IMPRESSION: Small left pleural effusion and decreased opacification of the left lower lobe. Assessment & Plan - Diagnosis (1) Acute systolic (congestive) heart failure Is this a current diagnosis for this admission?: Yes (2) Chronic diastolic CHF (congestive heart failure) Is this a current diagnosis for this admission?: Yes (3) COPD (chronic obstructive pulmonary disease) Qualifiers: COPD type: unspecified COPD Qualified Code(s): J44.9 - Chronic obstructive pulmonary disease, unspecified Is this a current diagnosis for this admission?: Yes (4) Essential hypertension Is this a current diagnosis for this admission?: Yes (5) CAD (coronary artery disease) Qualifiers: Coronary Disease-Associated Artery/Lesion type: [place] artery [place] vs. transplanted heart: [place] heart Associated angina: with unstable angina Qualified Code(s): I25.110 - Atherosclerotic heart disease of [place] coronary artery with unstable angina pectoris Is this a current diagnosis for this admission?: Yes (6) Hyperlipidemia Qualifiers: Hyperlipidemia type: unspecified Qualified Code(s): E78.5 - Hyperlipidemia, unspecified Is this a current diagnosis for this admission?: Yes (7) Hypokalemia Is this a current diagnosis for this admission?: Yes (8) Essential tremor Is this a current diagnosis for this admission?: Yes (9) Stercoral ulcer of rectum Is this a current diagnosis for this admission?: Yes - Time Time Spent with patient: 35 or more minutes Level of Care: IMCU Medications reviewed and adjusted accordingly: Yes Anticipated discharge: Home with Homehealth Within: Other - Inpatient Certification Based on my medical assessment, after consideration of the patient's comorbidities, presenting symptoms, or acuity I expect that the services needed warrant INPATIENT care.: Yes I certify that my determination is in accordance with my understanding of [facility]'s requirements for reasonable and necessary INPATIENT services [42 CFR 412.3e].: Yes Medical Necessity: Significant Comorbidiites Make Outpatient Treatment Too Risky, Need Close Monitoring Due to Risk of Patient Decompensation, Need For Continuous Telemetry Monitoring, Risk of Complication if Not Cared For in Hospital, Risk of Diagnosis Which Will Require Inpatient Eval/Care/Monitoring Post Hospital 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 Encouraged adequate oral intake and participation in self care.
[2019-03-18] MEDS: FAMOTIDINE 20 MG TABLET PO SCH (22:19)
[2019-03-18] MEDS: DONEPEZIL HCL 5 MG TABLET PO SCH (22:20)
[2019-03-18] MEDS: SERTRALINE HCL 50 MG TABLET PO SCH (22:20)
[2019-03-18] MEDS: ATORVASTATIN CALCIUM 20 MG TABLET PO SCH (22:21)
[2019-03-19] MEDS: PANTOPRAZOLE SODIUM 40 MG TABLET.DR PO SCH (06:36)
[2019-03-19] MEDS: CARVEDILOL 12.5 MG TABLET PO SCH ×2 (09:29→21:32)
[2019-03-19] MEDS: SUCRALFATE 1 GM TABLET PO SCH ×4 (09:29→21:32)
[2019-03-19] MEDS: FUROSEMIDE 40 MG TABLET PO SCH (09:29)
[2019-03-19] MEDS: AMLODIPINE BESYLATE 10 MG TABLET PO SCH (09:29)
[2019-03-19] MEDS: DOCUSATE SODIUM 100 MG CAPSULE PO SCH ×2 (09:29→17:13)
[2019-03-19] MEDS: POTASSIUM CHLORIDE 20 MEQ PACKET PO SCH (09:29)
[2019-03-19] MEDS: POLYETHYLENE GLYCOL 3350 POWDER 17 GM/1 PACKET PO SCH (09:29)
[2019-03-19] MEDS: FERROUS SULFATE 325 MG TABLET PO SCH (09:29)
[2019-03-19] MEDS: LISINOPRIL 10 MG TABLET PO SCH ×2 (09:29→21:32)
[2019-03-19] MEDS: PRIMIDONE 50 MG TABLET PO SCH ×4 (09:30→21:32)
[2019-03-19] MEDS: CARBAMAZEPINE 200 MG TABLET PO SCH ×2 (09:30→21:31)
[2019-03-19] MEDS: PSYLLIUM SEED-SF 5.85 GM PACKET PO SCH ×2 (09:30→17:14)
--- NOTE | 2019-03-19 13:41 | PDOC PROGRESS REPORT ---
Subjective Progress Note for:: 03/19/19 Subjective:: There is no new complaints, patient is deconditioned, out of bed to chair, working with physical therapy Reason For Visit: ACUTE CHF Physical Exam Vital Signs: Temp Pulse Resp BP Pulse Ox 98.1 F 68 16 96/63 L 97 03/19/19 13:03 03/19/19 13:03 03/19/19 13:03 03/19/19 13:03 03/19/19 13:03 Intake & Output 03/18/19 03/19/19 03/20/19 06:59 06:59 06:59 Intake Total 640 460 Output Total 1165 450 Balance -525 10 Weight 68.3 kg 68.1 kg General appearance: PRESENT: no acute distress Eye exam: PRESENT: PERRLA Respiratory exam: PRESENT: clear to auscultation ulysses Cardiovascular exam: PRESENT: +S1, +S2 Murmur grade: 3 GI/Abdominal exam: PRESENT: soft Neurological exam: PRESENT: alert Results Laboratory Results: 03/18/19 08:08 03/18/19 08:08 03/06/19 03/06/19 03/06/19 05:10 05:10 08:15 Creatine Kinase < 20 L CK-MB (CK-2) 0.58 Troponin I 0.023 0.034 NT-Pro-B Natriuret Pep [id number] H 03/18/19 08:08 Creatine Kinase CK-MB (CK-2) Troponin I NT-Pro-B Natriuret Pep 9270 H Impressions: Chest X-Ray 03/12/19 00:00 IMPRESSION: Small left pleural effusion and decreased opacification of the left lower lobe. Assessment & Plan - Diagnosis (1) Acute systolic (congestive) heart failure Is this a current diagnosis for this admission?: Yes (2) CAD (coronary artery disease) Qualifiers: Coronary Disease-Associated Artery/Lesion type: [place] artery [place] vs. transplanted heart: [place] heart Associated angina: with unstable angina Qualified Code(s): I25.110 - Atherosclerotic heart disease of [place] coronary artery with unstable angina pectoris Is this a current diagnosis for this admission?: Yes (3) COPD (chronic obstructive pulmonary disease) Qualifiers: COPD type: unspecified COPD Qualified Code(s): J44.9 - Chronic obstructive pulmonary disease, unspecified Is this a current diagnosis for this admission?: Yes (4) Essential hypertension Is this a current diagnosis for this admission?: Yes (5) Pneumonia Qualifiers: Pneumonia type: due to unspecified organism Laterality: unspecified later ality Lung location: unspecified part of lung Qualified Code(s): J18.9 - Pneumonia, unspecified organism Is this a current diagnosis for this admission?: Yes - Time Time Spent with patient: 15-24 minutes
[2019-03-19] MEDS: FAMOTIDINE 20 MG TABLET PO SCH (21:32)
[2019-03-19] MEDS: ATORVASTATIN CALCIUM 20 MG TABLET PO SCH (21:32)
[2019-03-19] MEDS: SERTRALINE HCL 50 MG TABLET PO SCH (21:32)
[2019-03-19] MEDS: DONEPEZIL HCL 5 MG TABLET PO SCH (22:29)
[2019-03-20] MEDS: PANTOPRAZOLE SODIUM 40 MG TABLET.DR PO SCH (06:22)
[2019-03-20] MEDS: PRIMIDONE 50 MG TABLET PO SCH ×4 (09:54→21:54)
[2019-03-20] MEDS: LISINOPRIL 10 MG TABLET PO SCH ×2 (09:54→21:54)
[2019-03-20] MEDS: DOCUSATE SODIUM 100 MG CAPSULE PO SCH ×2 (09:54→17:25)
[2019-03-20] MEDS: CARBAMAZEPINE 200 MG TABLET PO SCH ×2 (09:55→21:54)
[2019-03-20] MEDS: FERROUS SULFATE 325 MG TABLET PO SCH (09:55)
[2019-03-20] MEDS: POLYETHYLENE GLYCOL 3350 POWDER 17 GM/1 PACKET PO SCH (09:55)
[2019-03-20] MEDS: FUROSEMIDE 40 MG TABLET PO SCH (09:55)
[2019-03-20] MEDS: PSYLLIUM SEED-SF 5.85 GM PACKET PO SCH ×2 (09:55→17:25)
[2019-03-20] MEDS: CARVEDILOL 12.5 MG TABLET PO SCH ×2 (09:55→21:54)
[2019-03-20] MEDS: SUCRALFATE 1 GM TABLET PO SCH ×4 (09:55→21:54)
[2019-03-20] MEDS: POTASSIUM CHLORIDE 20 MEQ PACKET PO SCH (09:55)
[2019-03-20] MEDS: AMLODIPINE BESYLATE 10 MG TABLET PO SCH (09:55)
--- NOTE | 2019-03-20 14:53 | PDOC PROGRESS REPORT ---
Subjective Progress Note for:: 03/20/19 Subjective:: Patient with no new complaints, she looks very deconditioned Reason For Visit: ACUTE CHF Physical Exam Vital Signs: Temp Pulse Resp BP Pulse Ox 98.2 F 70 16 104/50 L 97 03/20/19 13:02 03/20/19 13:02 03/20/19 13:02 03/20/19 13:02 03/20/19 13:02 Intake & Output 03/19/19 03/20/19 03/21/19 06:59 06:59 06:59 Intake Total 460 2190 Output Total 450 550 Balance 10 1640 Weight 68.1 kg 65.1 kg General appearance: PRESENT: no acute distress Eye exam: PRESENT: PERRLA Respiratory exam: PRESENT: clear to auscultation ulysses Cardiovascular exam: PRESENT: +S1, +S2 Murmur grade: 3 GI/Abdominal exam: PRESENT: soft Neurological exam: PRESENT: alert Results Laboratory Results: 03/18/19 08:08 03/18/19 08:08 03/06/19 03/06/19 03/06/19 05:10 05:10 08:15 Creatine Kinase < 20 L CK-MB (CK-2) 0.58 Troponin I 0.023 0.034 NT-Pro-B Natriuret Pep [id number] H 03/18/19 08:08 Creatine Kinase CK-MB (CK-2) Troponin I NT-Pro-B Natriuret Pep 9270 H Impressions: Chest X-Ray 03/12/19 00:00 IMPRESSION: Small left pleural effusion and decreased opacification of the left lower lobe. Assessment & Plan - Diagnosis (1) Acute systolic (congestive) heart failure Is this a current diagnosis for this admission?: Yes (2) CAD (coronary artery disease) Qualifiers: Coronary Disease-Associated Artery/Lesion type: [place] artery [place] vs. transplanted heart: [place] heart Associated angina: with unstable angina Qualified Code(s): I25.110 - Atherosclerotic heart disease of [place] coronary artery with unstable angina pectoris Is this a current diagnosis for this admission?: Yes (3) COPD (chronic obstructive pulmonary disease) Qualifiers: COPD type: unspecified COPD Qualified Code(s): J44.9 - Chronic obstructive pulmonary disease, unspecified Is this a current diagnosis for this admission?: Yes (4) Essential hypertension Is this a current diagnosis for this admission?: Yes (5) Pneumonia Qualifiers: Pneumonia type: due to unspecified organism Laterality: unspecified laterality Lung location: unspecified part of lung Qualified Code(s): J18.9 - Pneumonia, unspecified organism Is this a current diagnosis for this admission?: Yes - Time Time Spent with patient: 25-34 minutes
[2019-03-20] MEDS: SERTRALINE HCL 50 MG TABLET PO SCH (21:54)
[2019-03-20] MEDS: DONEPEZIL HCL 5 MG TABLET PO SCH (21:54)
[2019-03-20] MEDS: FAMOTIDINE 20 MG TABLET PO SCH (21:54)
[2019-03-20] MEDS: ATORVASTATIN CALCIUM 20 MG TABLET PO SCH (21:54)
[2019-03-21] MEDS: PANTOPRAZOLE SODIUM 40 MG TABLET.DR PO SCH (05:42)
[2019-03-21] MEDS: LISINOPRIL 10 MG TABLET PO SCH (10:37)
[2019-03-21] MEDS: POLYETHYLENE GLYCOL 3350 POWDER 17 GM/1 PACKET PO SCH (10:37)
[2019-03-21] MEDS: CARVEDILOL 12.5 MG TABLET PO SCH (10:37)
[2019-03-21] MEDS: PSYLLIUM SEED-SF 5.85 GM PACKET PO SCH ×2 (10:37→18:24)
[2019-03-21] MEDS: AMLODIPINE BESYLATE 10 MG TABLET PO SCH (10:37)
[2019-03-21] MEDS: POTASSIUM CHLORIDE 20 MEQ PACKET PO SCH (10:37)
[2019-03-21] MEDS: FUROSEMIDE 40 MG TABLET PO SCH (10:37)
[2019-03-21] MEDS: DOCUSATE SODIUM 100 MG CAPSULE PO SCH ×2 (10:37→18:21)
[2019-03-21] MEDS: FERROUS SULFATE 325 MG TABLET PO SCH (10:37)
[2019-03-21] MEDS: SUCRALFATE 1 GM TABLET PO SCH ×3 (10:37→18:24)
[2019-03-21] MEDS: PRIMIDONE 50 MG TABLET PO SCH ×3 (10:54→18:24)
[2019-03-21] MEDS: CARBAMAZEPINE 200 MG TABLET PO SCH (10:54)
[2019-03-21 19:55] VITALS: BP 148/59
--- NOTE | 2019-03-24 00:22 | PDOC DISCHARGE SUMMARY ---
Impression - Admit/DC Date/PCP Admission Date/Primary Care Provider: 03/06/19 08:05 MARISSA PHAM Discharge Date: 03/21/19 - Discharge Diagnosis (1) Acute systolic (congestive) heart failure Is this a current diagnosis for this admission?: Yes (2) Chronic diastolic CHF (congestive heart failure) Is this a current diagnosis for this admission?: Yes (3) COPD (chronic obstructive pulmonary disease) Is this a current diagnosis for this admission?: Yes (4) Essential hypertension Is this a current diagnosis for this admission?: Yes (5) CAD (coronary artery disease) Is this a current diagnosis for this admission?: Yes (6) Hyperlipidemia Is this a current diagnosis for this admission?: Yes (7) Hypokalemia Is this a current diagnosis for this admission?: Yes (8) Essential tremor Is this a current diagnosis for this admission?: Yes (9) Stercoral ulcer of rectum Is this a current diagnosis for this admission?: Yes - Assessment Summary: Patient was admitted for acute on chronic CHF. She was managed with IV Lasix and fluid restriction and adjustment in her anti heart failure medications. She was seen in consultation by Dr. Stockton, finisher wallboard and plasterboard, during this hospitalization. Her stay was prolonged due to development of left lower lobe pneumonia with need for IV antibiotic therapy as well as associated generalized deconditioning. She was seen in consultation by physical therapist during this hospitalization. She gradually improved in her physical endurance and clinical status enough to be discharge home on [facility]. She will follow up with Dr Stockton and myself in the office as instructed upon discharge. - Additional Information Resuscitation Status: Do Not Resuscitate Discharge Diet: Cardiac Discharge Activity: Activity As Tolerated, Balance Activity w/Rest, Weigh Daily Referrals: SOPHY GRANDE MD [ACTIVE STAFF] - 03/28/19 12:15 pm MARISSA PHAM MD [Primary Care Provider] - 03/28/19 10:00 am Prescriptions: Furosemide [Lasix 40 mg Tablet] 40 mg PO DAILY #30 tablet Primidone [Mysoline 50 mg Tablet] 50 mg PO QID #120 tablet Potassium Chloride [Potassium Chloride 20 Meq Packet] 20 meq PO DAILY #30 packet Home Medications: Amlodipine Besylate [Norvasc 10 mg Tablet] 10 mg PO DAILY 03/06/19 Carbamazepine [Tegretol 200 mg Tablet] 400 mg PO Q12 03/06/19 Carvedilol [Coreg 25 mg Tablet] 25 mg PO Q12 03/06/19 Docusate Sodium [Colace 100 mg Capsule] 100 mg PO BID 03/06/19 Donepezil HCl [Aricept 5 mg Tablet] 5 mg PO QHS 03/06/19 Ferrous Sulfate [Iron] 325 mg PO DAILY 03/06/19 Flaxseed Oil [Flax Seed Oil] 1,000 mg PO DAILY 03/06/19 Lisinopril [Prinivil 10 mg Tablet] 10 mg PO DAILY 03/06/19 Oxycodone HCl [Oxy-Ir 5 mg Tablet] 5 mg PO Q8HP PRN 03/06/19 Polyethylene Glycol 3350 [Miralax Powder 17 gm/Packet] 1 packet PO DAILY 03/06/19 Primidone [Mysoline 50 mg Tablet] 100 mg PO QID 03/06/19 Psyllium Husk (with Sugar) [Metamucil Packet] 1 packet PO BID 03/06/19 Ranitidine HCl [Zantac] 300 mg PO QHS 03/06/19 Rosuvastatin Calcium [Crestor 10 mg Tablet] 10 mg PO QHS 03/06/19 Sertraline HCl [Zoloft 50 mg Tablet] 50 mg PO QHS 03/06/19 Sucralfate [Carafate 1 gm Tablet] 1 gm PO QID 03/06/19 Furosemide [Lasix 40 mg Tablet] 40 mg PO DAILY #30 tablet 03/21/19 Potassium Chloride [Potassium Chloride 20 Meq Packet] 20 meq PO DAILY #30 packet 03/21/19 Primidone [Mysoline 50 mg Tablet] 50 mg PO QID #120 tablet 03/21/19 History of Present Illiness History of Present Illness: BERNABE DORMAN is a 83 year old female patient known to my practice who present to the ED via EMS due to worsening shortness of breath, coughing, and generalized weakness and fatigue. Patient reported ongoing symptoms for several days. She reported associated occasional palpitation particularly with efforts. She denied any associated chest pain or new onset leg swelling. She admitted to difficulty laying in bed without pillows but denied PND. She has history of CHF but claimed compliance with her medication and dietary restrictions. She denied any alcohol abuse of illicit drug usage. She responded to CPAP support en route to the ED and since arrival has been n BiPAP with improvement with her breathing. Her evaluation did revealed elevated NT Pro-BNP at above 42,000. Her morbidities are as listed below. She was advised hospitalization for further evaluation and management. Hospital Course Hospital Course: Patient was admitted for acute on chronic CHF. She was managed with IV Lasix and fluid restriction and adjustment in her anti heart failure medications. She was seen in consultation by Dr. Stockton, finisher wallboard and plaster[employer], during this hospitalization. Her stay was prolonged due to development of left lower lobe pneumonia with need for IV antibiotic therapy as well as associated generalized deconditioning. She was seen in consultation by physical therapist during this hospitalization. She gradually improved in her physical endurance and clinical status enough to be discharge home on [facility] services. She will follow up with Dr Stockton and myself in the office as instructed upon discharge. Physical Exam Vital Signs: Temp Pulse Resp BP Pulse Ox 97.8 F 60 19 168/61 H 99 03/21/19 04:11 03/21/19 07:00 03/21/19 04:11 03/21/19 04:11 03/21/19 04:11 Intake & Output 03/20/19 03/21/19 03/22/19 06:59 06:59 06:59 Intake Total 2190 947 Output Total 550 775 Balance 1640 172 Weight 65.1 kg 64 kg General appearance: PRESENT: no acute distress Head exam: PRESENT: atraumatic, normocephalic Eye exam: PRESENT: conjunctiva pink. ABSENT: pallor, scleral icterus Ear exam: PRESENT: normal external ear exam Mouth exam: PRESENT: moist Respiratory exam: PRESENT: clear to auscultation ulysses Cardiovascular exam: PRESENT: RRR, systolic murmur. ABSENT: diastolic murmur, rubs Murmur grade: 3 GI/Abdominal exam: PRESENT: normal bowel sounds, soft. ABSENT: distended, guarding, mass, organomegaly, rebound, tenderness Extremities exam: ABSENT: pedal edema Neurological exam: PRESENT: alert, awake, oriented to person, oriented to place, oriented to situation, CN II-XII grossly intact. ABSENT: motor sensory deficit Psychiatric exam: PRESENT: appropriate affect, normal mood. ABSENT: homicidal ideation, suicidal ideation Skin exam: PRESENT: dry, warm Murmur grade: 3 Results Laboratory Results: WBC 4.2 10^3/uL (4.0-10.5) 03/18/19 08:08 RBC 3.73 10^6/uL (3.72-5.28) 03/18/19 08:08 Hgb 9.6 g/dL (12.0-15.5) L 03/18/19 08:08 Hct 29.7 % (36.0-47.0) L 03/18/19 08:08 MCV 80 fl (80-97) 03/18/19 08:08 MCH 25.8 pg (27.0-33.4) L 03/18/19 08:08 MCHC 32.3 g/dL (32.0-36.0) 03/18/19 08:08 RDW 15.5 % (11.5-14.0) H 03/18/19 08:08 Plt Count 207 10^3/uL (150-450) 03/18/19 08:08 Lymph % (Auto) 28.1 % (13-45) 03/18/19 08:08 [place] % (Auto) 7.2 % (3-13) 03/18/19 08:08 Eos % (Auto) 2.3 % (0-6) 03/18/19 08:08 Baso % (Auto) 0.5 % (0-2) 03/18/19 08:08 Absolute Neuts (auto) 2.6 10^3/uL (1.7-8.2) 03/18/19 08:08 Absolute Lymphs (auto) 1.2 10^3/uL (0.5-4.7) 03/18/19 08:08 Absolute Monos (auto) 0.3 10^3/uL (0.1-1.4) 03/18/19 08:08 Absolute Eos (auto) 0.1 10^3/uL (0.0-0.6) 03/18/19 08:08 Absolute Basos (auto) 0.0 10^3/uL (0.0-0.2) 03/18/19 08:08 Seg Neutrophils % 61.9 % (42-78) 03/18/19 08:08 Carbonic Acid 1.54 mmol/L (1.05-1.35) H 03/11/19 18:10 HCO3/H2CO3 Ratio 22:1 03/11/19 18:10 ABG pH 7.45 (7.35-7.45) 03/11/19 18:10 ABG pCO2 51.1 mmHg (35-45) H 03/11/19 18:10 ABG pO2 84.6 mmHg (80-100) 03/11/19 18:10 ABG HCO3 35.0 mmol/L (20-24) H 03/11/19 18:10 ABG Total CO2 36.6 mmol/L (21-25) H 03/11/19 18:10 ABG O2 Saturation 96.6 % (94-98) 03/11/19 18:10 ABG Base Excess 9.7 mmol/L 03/11/19 18:10 VBG pH 7.30 (7.30-7.42) 03/06/19 05:10 VBG pCO2 55.9 mmHg (35-63) 03/06/19 05:10 VBG HCO3 26.7 mmol/L (20-32) 03/06/19 05:10 VBG Base Excess -0.4 mmol/L 03/06/19 05:10 FiO2 1L NC 03/11/19 18:10 Sodium 140.3 mmol/L (137-145) 03/18/19 08:08 Potassium 4.0 mmol/L (3.6-5.0) 03/18/19 08:08 Chloride 101 mmol/L (98-107) 03/18/19 08:08 Carbon Dioxide 33 mmol/L (22-30) H 03/18/19 08:08 Anion Gap 6 (5-19) 03/18/19 08:08 BUN 25 mg/dL (7-20) H 03/18/19 08:08 Creatinine 1.27 mg/dL (0.52-1.25) H 03/18/19 08:08 Est GFR ( Amer) 49 (>60) L 03/18/19 08:08 Est GFR (MDRD) Non-Af 40 (>60) L 03/18/19 08:08 Glucose 95 mg/dL (75-110) 03/18/19 08:08 Calcium 9.7 mg/dL (8.4-10.2) 03/18/19 08:08 Magnesium 2.0 mg/dL (1.6-2.3) 03/11/19 19:06 Total Bilirubin 0.3 mg/dL (0.2-1.3) 03/13/19 04:40 Direct Bilirubin 0.3 mg/dL (0.0-0.4) 03/13/19 04:40 Neonat Total Bilirubin Not Reportable 03/13/19 04:40 Neonat Direct Bilirubin Not Reportable 03/13/19 04:40 Neonat Indirect Bili Not Reportable 03/13/19 04:40 AST 15 U/L (14-36) 03/13/19 04:40 ALT 8 U/L (<35) 03/13/19 04:40 Alkaline Phosphatase 100 U/L (38-126) 03/13/19 04:40 Creatine Kinase < 20 U/L (30-135) L 03/06/19 05:10 CK-MB (CK-2) 0.58 ng/mL (<4.55) 03/06/19 05:10 Troponin I 0.034 ng/mL 03/06/19 08:15 NT-Pro-B Natriuret Pep 9270 pg/mL (<450) H 03/18/19 08:08 Total Protein 5.9 g/dL (6.3-8.2) L 03/13/19 04:40 Albumin 2.8 g/dL (3.5-5.0) L 03/13/19 04:40 Stool Occult Blood POSITIVE (NEGATIVE) 03/12/19 16:48 03/06/19 03/06/19 03/18/19 05:10 08:15 08:08 CK-MB (CK-2) 0.58 Troponin I 0.023 0.034 NT-Pro-B Natriuret Pep 68843 H 9270 H Impressions: Chest X-Ray 03/06/19 05:04 IMPRESSION: Tiny bibasilar effusions and/or pleural thickening. Equivocal retrocardiac airspace opacity. copyright 2011 [employer]- All Rights Reserved Chest X-Ray 03/07/19 00:00 IMPRESSION: Worsening basilar aeration. Chest X-Ray 03/10/19 00:00 IMPRESSION: Significant improved aeration of the lung bases. Residual opacities most prominent on the left. Chest X-Ray 03/12/19 00:00 IMPRESSION: Small left pleural effusion and decreased opacification of the left lower lobe. Plan Health Concerns: High risk of readmission. Patient discussed issue of palliative care with discharge team during this hospitalization. Plan of Treatment: Continue on anti congestive heart failure medication, fluid restrictions and dietary salt restriction. Close monitoring on CHF program through [employer] services. Goals: Reduce readmission rate. Improve compliance with dietary salt, fluid restrictions and medication administration. Time Spent: Greater than 30 Minutes - Care coordination, counseling on post discharge care plan and post acute care follow up. Stroke Is this a Stroke Patient?: No Acute Heart Failure - Is this a Heart Failure Patient?: Yes Documentation of LVEF assessment?: Yes LVEF < 40%?: Yes-if yes answer questions a through e a) Discharged on ACEI?: Yes b) Discharges on ARB?: No-document contraindications Reason(s) not discharged on ARB: Impaired/worsening renal functions c) Discharged on ARNI?: No-Document Contraindications Reason(s) not discharged on ARNI: ACEI use within the prior 36 hours d) Discharged on evidence-based Beta steven(carvedilol, sustained release metoprolol succinate, or bisoprolol)?: Yes e) For LVEF <35%, discharged on Aldosterone antagonist?: N/A (LVEF > or = 35%) 3. Anticoagulant therapy for permanect/persistent/paraoxysmal Afib or Aflutter: N/A Follow-up Appointment scheduled within 7 days?: Yes
== END 2019-03-21 19:55 | disposition home or self-care (01) | DRG 291 ==
LOC: ER 04:48 → EH 08:05 → 3N 10:03
PROVIDERS: ADMIT Internal Medicine Geriatric Medicine; ATTEND Internal Medicine Geriatric Medicine
PROC: 5A09357 Assistance with Respiratory Ventilation, Less than 24 Consecutive Hours, Continuous Positive Airway Pressure (ICD-10-PCS; principal; 2019-03-06)
DX: I11.0 Hypertensive heart disease with heart failure (principal); J18.1 Lobar pneumonia, unspecified organism; K62.6 Ulcer of anus and rectum; Z95.1 Presence of aortocoronary bypass graft; I50.43 Acute on chronic combined systolic (congestive) and diastolic (congestive) heart failure; J44.9 Chronic obstructive pulmonary disease, unspecified; I25.10 Atherosclerotic heart disease of native coronary artery without angina pectoris; E78.5 Hyperlipidemia, unspecified; E87.6 Hypokalemia; G25.0 Essential tremor; Z66 Do not resuscitate; G47.30 Sleep apnea, unspecified; R91.8 Other nonspecific abnormal finding of lung field; K21.9 Gastro-esophageal reflux disease without esophagitis; K44.9 Diaphragmatic hernia without obstruction or gangrene; M19.90 Unspecified osteoarthritis, unspecified site; Z96.641 Presence of right artificial hip joint; H91.90 Unspecified hearing loss, unspecified ear; I45.10 Unspecified right bundle-branch block; D50.0 Iron deficiency anemia secondary to blood loss (chronic); I34.0 Nonrheumatic mitral (valve) insufficiency; I35.1 Nonrheumatic aortic (valve) insufficiency; I25.2 Old myocardial infarction; Z85.3 Personal history of malignant neoplasm of breast; Z95.5 Presence of coronary angioplasty implant and graft; Z90.12 Acquired absence of left breast and nipple; Z82.49 Family history of ischemic heart disease and other diseases of the circulatory system; Z88.8 Allergy status to other drugs, medicaments and biological substances
CPT/HCPCS: 36415; 36600; 71045; 80048; 80053; 82272; 82550; 82553; 82803; 83735; 83880; 84484; 85025; 93005; 93010; 93306; 94660; 96374; 99291; J0692; J1650; J1940; J3490

== ENCOUNTER 2019-11-20 11:39 | Inpatient (IN) | payer MEDICARE, OTHER ==
--- NOTE | 2019-11-20 12:15 | RADIOLOGY REPORT (SQ) ---
EXAM DESCRIPTION: CHEST SINGLE VIEW IMAGES COMPLETED DATE/TIME: 11/20/2019 12:06 pm REASON FOR STUDY: sob COMPARISON: 03/12/2019 EXAM PARAMETERS: NUMBER OF VIEWS: One view. TECHNIQUE: Single frontal radiographic view of the chest acquired. RADIATION DOSE: NA LIMITATIONS: None. FINDINGS: LUNGS AND PLEURA: No opacities, masses or pneumothorax. No pleural effusion. MEDIASTINUM AND HILAR STRUCTURES: Hilar prominence that is stable. HEART AND VASCULAR STRUCTURES: Heart normal in size. Normal vasculature. BONES: No acute findings. HARDWARE: None in the chest. OTHER: No other significant finding. IMPRESSION: NO ACUTE RADIOGRAPHIC FINDING IN THE CHEST. TECHNICAL DOCUMENTATION: JOB ID: [id number] 2010 [employer]- All Rights Reserved Reading location - IP/workstation name: [email or web address]
[2019-11-20 12:16] LABS: ABSOLUTE EOSINOPHILS # (AUTO) 0.2 10^3/uL (0.0-0.6); ABSOLUTE LYMPHOCYTES (AUTO) 0.9 10^3/uL (0.5-4.7); ABSOLUTE MONOCYTES (AUTO) 1.3 10^3/uL (0.1-1.4); ABSOLUTE NEUT (AUTO) 9.5 10^3/uL (1.7-8.2); BASOPHILS % (AUTO) 0.4 % (0-2); EOSINOPHILS % (AUTO) 1.5 % (0-6); HEMATOCRIT 26.1 % (36.0-47.0); HEMOGLOBIN 8.5 g/dL (12.0-15.5); LYMPHOCYTES % (AUTO) 7.5 % (13-45); MEAN CORPUSCULAR HEMOGLOBIN 26.8 pg (27.0-33.4); MEAN CORPUSCULAR HGB CONC 32.5 g/dL (32.0-36.0); MEAN CORPUSCULAR VOLUME 82 fl (80-97); MONOCYTES % (AUTO) 11.3 % (3-13); PLATELET COUNT 281 10^3/uL (150-450); RED BLOOD COUNT 3.17 10^6/uL (3.72-5.28); RED CELL DISTRIBUTION WIDTH 14.6 % (11.5-14.0); SEGMENTED NEUTROPHILS % (AUTO) 79.3 % (42-78); TOTAL CELLS COUNTED % (AUTO) 100 %; WHITE BLOOD COUNT 11.9 10^3/uL (4.0-10.5)
[2019-11-20 12:29] LABS: APPEARANCE,URINE SLIGHTLY-CLOUDY; BILIRUBIN,URINE NEGATIVE (NEGATIVE); COLOR,URINE YELLOW; GLUCOSE, URINE NEGATIVE (NEGATIVE); KETONES,URINE NEGATIVE (NEGATIVE); LEUKOCYTE ESTERASE,URINE TRACE (NEGATIVE); NITRITE,URINE NEGATIVE (NEGATIVE); PROTEIN,URINE NEGATIVE (NEGATIVE); URINE SPECIFIC GRAVITY 1.012; UROBILINOGEN,URINE NEGATIVE mg/dL (<2.0)
[2019-11-20 12:31] LABS: ALKALINE PHOSPHATASE 150 U/L (38-126); ANION GAP 7 (5-19); ASPARTATE AMINO TRANSFERASE 18 U/L (14-36); BILIRUBIN,DIRECT 0.4 mg/dL (0.0-0.4); BILIRUBIN,TOTAL 0.4 mg/dL (0.2-1.3); BLOOD UREA NITROGEN 17 mg/dL (7-20); CARBON DIOXIDE 26 mmol/L (22-30); CHLORIDE 103 mmol/L (98-107); GLUCOSE 108 mg/dL (75-110); POTASSIUM 4.9 mmol/L (3.6-5.0)
[2019-11-20 12:37] LABS: ADD MANUAL MICROSCOPIC YES; BACTERIA,URINE 3+ /HPF
[2019-11-20 12:42] LABS: TROPONIN I 0.043 ng/mL
[2019-11-20] MEDS ORDERED: FUROSEMIDE INJ/PF 20 MG/2 ML SDV IV ONE (13:02)
--- NOTE | 2019-11-20 13:11 | ER Document Report ---
ED General - General Chief Complaint: Shortness Of Breath Stated Complaint: DIFFICULTY BREATHING Time Seen by Provider: 11/20/19 11:56 Primary Care Provider: MARISSA PHAM MD [Primary Care Provider] - Follow up as needed TRAVEL OUTSIDE OF THE [place] IN LAST 30 DAYS: No - HPI Notes: Chief complaint: Difficulty breathing History of present illness: 84-year-old female followed with Dr. Pham with history of COPD and CHF presenting now via EMS with worsening dyspnea and some wheezing over the past 2 days. No chest pain. No fever. No cough. No sputum production. No travel outside the area. No known exposure to COVID-19. Patient had a initial O2 saturation on room air of 92% per EMS. She was wheezing. They gave her 1 albuterol treatment and placed on 2 L of nasal O2. She was comfortable on arrival here. Review of prior records shows that the patient is on DNR/DNI status. She does not use oxygen at home. - Related Data Allergies/Adverse Reactions: promethazine HCl [From Phenergan] Allergy (Verified 12/07/18 14:57) Past Medical History - General Information source: Patient, [facility], [facility] Records - Social History Smoking Status: Never Smoker Frequency of alcohol use: None Drug Abuse: None Lives with: Family Family History: Hypertension - Past Medical History Cardiac Medical History: Reports: Hx Congestive Heart Failure, Hx Coronary Artery Disease, Hx Heart Attack - unsure, Hx Hypercholesterolemia, Hx Hypertension, Hx Heart Murmur Denies: Hx Atrial Fibrillation, Hx Peripheral Vascular Disease, Hx Pulmonary Embolism Pulmonary Medical History: Reports: Hx COPD, Hx Sleep Apnea Denies: Hx Asthma, Hx Bronchitis, Hx Pneumonia, Hx Respiratory Failure, Hx Tuberculosis Neurological Medical History: Denies: Hx Cerebrovascular Accident, Hx Seizures, Hx Parkinson's Disease Endocrine Medical History: Denies: Hx Graves' Disease, Hx Hyperthyroidism, Hx Hypothyroidism Renal/ Medical History: Denies: Hx End Stage Renal Disease, Hx Kidney Stones, Hx Ovarian Cysts, Hx Peritoneal Dialysis, Hx Pelvic Inflammatory Disease Malignancy Medical History: Reports: Hx Breast Cancer - left breast, Hx Lung Cancer - right lung nodules. Denies: Hx Cervical Cancer, Hx Leukemia, Hx Ovarian Cancer GI Medical History: Reports: Hx Gastroesophageal Reflux Disease, Hx Hiatal Hernia, Hx Ulcer. Denies: Hx Crohn's Disease, Hx Irritable Bowel, Hx Liver Fail ure, Hx Pancreatitis Musculoskeletal Medical History: Reports Hx Arthritis, Denies Hx Fibromyalgia, Denies Hx Multiple Sclerosis, Denies Hx Muscular Dystrophy, Denies Hx Systemic Lupus Erythematosus Psychiatric Medical History: Denies: Hx Bipolar Disorder, Hx Dementia, Hx Depression, Hx Post Traumatic Stress Disorder, Hx Schizophrenia Traumatic Medical History: Denies: Hx Fractures Infectious Medical History: Denies: Hx HIV Past Surgical History: Reports: Hx Abdominal Surgery, Hx Breast Surgery - Left mastectomy for breast cancer, Hx Cardiac Catheterization, Hx Cardiac Surgery, Hx Coronary Artery Bypass Graft - stent, Hx Coronary Stent, Hx Gynecologic Surgery - , Hx Hysterectomy, Hx Mastectomy - Left breast, Hx Orthopedic Surgery - right hip replacement. Denies: Hx Appendectomy, Hx Bowel Surgery, Hx Section, Hx Cholecystectomy, Hx Colostomy, Hx Gastric Bypass Surgery, Hx Herniorrhaphy, Hx Pacemaker, Hx Tonsillectomy, Hx Tubal Ligation - Immunizations Hx Diphtheria, Pertussis, Tetanus Vaccination: Yes Hx Pneumococcal Vaccination: 12/25/17 Review of Systems - Review of Systems Notes: Constitutional: Negative for fever. HENT: Negative for sore throat. Eyes: Negative for visual changes. Cardiovascular: Negative for chest pain. Respiratory: As per HPI. Gastrointestinal: Negative for abdominal pain, vomiting or diarrhea. Genitourinary: Negative for dysuria. Musculoskeletal: Negative for back pain. Skin: Negative for rash. Neurological: Negative for headaches, weakness or numbness. 10 point ROS negative except as marked above and in HPI. Physical Exam - Vital signs Vitals: Temp Resp BP Pulse Ox 98.8 F 24 H 129/68 H 95 11/20/19 11:41 11/20/19 11:41 11/20/19 11:41 11/20/19 11:41 - Notes Notes: GENERAL: Elderly female appearing in no acute distress. SKIN: Good turgor no rashes. HEAD: Normocephalic atraumatic. EYES: PERRLA. EOMI. Conjunctivae and sclerae clear. EARS: CANALS AND TMS CLEAR. NOSE: CLEAR. MOUTH: Moist mucosa. Good dentition. No stridor or edema. No drooling. NECK: Supple. No masses or thyromegaly. No adenopathy. Carotids 2+ without bruits. No JVD. BACK: Symmetrical without tenderness. CHEST: Respirations unlabored. Symmetrical breath sounds with a few scattered wheezes and some fine crackles at both bases.. HEART: Regular rhythm. Harsh grade 3 systolic murmur noted left apex. ABDOMEN: Soft nontender without masses, organomegaly or rebound. Bowel sounds normally active. No bruits. GENITALIA: Deferred. EXTREMITIES: Trace bilateral pretibial edema. No calf tenderness. Cap refill less than 1.5 seconds. Dorsalis pedis and posterior tibial pulses 3+ and symmetrical. NEUROLOGICAL: GCS 15. Alert and oriented x3. Normal gait. Fluent speech. Cranial nerves II through XII intact. Sensorimotor and cerebellar normal. Normal tone. PSYCHIATRIC: Appropriate affect. Course - Re-evaluation Re-evalutation: 11/20/19 13:16 Clinically patient appears to have mild cardiac decompensation and her BNP is about 45,000. I have stabilized her with some low flow nasal O2 and give her some IV Lasix. Troponin is negative. EKG shows pre-existing right bundle branch block. I will discuss admission with her primary care provider Dr. Pham. 11/20/19 13:19 Case has been discussed with Dr. Victor covering for Dr. Anais Marx and he agrees to telemetry admission. - Vital Signs Vital signs: Temp Pulse Resp BP Pulse Ox 98.8 F 24 H 129/68 H 94 11/20/19 11:41 11/20/19 11:41 11/20/19 11:41 11/20/19 11:44 - Laboratory Result Diagrams: 11/20/19 11:52 11/20/19 11:52 Laboratory results interpreted by me: 11/20/19 11/20/19 11/20/19 11:52 11:52 11:52 WBC 11.9 H RBC 3.17 L Hgb 8.5 L Hct 26.1 L MCH 26.8 L RDW 14.6 H Lymph % (Auto) 7.5 L Absolute Neuts (auto) 9.5 H Seg Neutrophils % 79.3 H Sodium 136.4 L Alkaline Phosphatase 150 H NT-Pro-B Natriuret Pep 76828 H Total Protein 6.0 L Albumin 3.0 L Ur Leukocyte Esterase Urine Ascorbic Acid 11/20/19 11:52 WBC RBC Hgb Hct MCH RDW Lymph % (Auto) Absolute Neuts (auto) Seg Neutrophils % Sodium Alkaline Phosphatase NT-Pro-B Natriuret Pep Total Protein Albumin Ur Leukocyte Esterase TRACE H Urine Ascorbic Acid 40 H - Diagnostic Test Radiology reviewed: Reports reviewed - Portable chest x-ray: No active disease per radiologist. - EKG Interpretation by Me Additional EKG results interpreted by me: 11/20/19 13:11 Twelve-lead EKG from 1156 hrs. reviewed contemporaneously by me demonstrating normal sinus rhythm with rate of 73. Patient has a pre-existing right bundle branch block. No acute ST/T wave changes are noted. She has a left axis d eviation with QRS axis of -32 degrees. Discharge - Discharge Clinical Impression: Acute decompensated heart failure Disposition: ADMITTED INPATIENT Admitting Provider: [facility] Unit Admitted: Telemetry Referrals: MARISSA PHAM MD [Primary Care Provider] - Follow up as needed
--- NOTE | 2019-11-20 17:46 | PDOC H&P ---
History of Present Illness Admission Date/PCP: 11/20/19 13:53 MARISSA PHAM History of Present Illness: BERNABE DORMAN is a 84 year old female, She came to the emergency room for evaluation of shortness of breath, she has a history of congestive heart failure, COPD, in the emergency room she was evaluated, the serum B type natruretic peptide was 45,300 consistent with CHF,She has paroxysmal nocturnal dyspnea, dyspnea on exertion Past Medical History Cardiac Medical History: Reports: Congestive Heart Failure, Coronary Artery Disease, Myocardial Infarction - unsure, Hyperlipidema, Hypertension, Heart Murmur Pulmonary Medical History: Reports: Chronic Obstructive Pulmonary Disease (COPD), Sleep Apnea Malignancy Medical History: Reports: Breast Cancer - left breast, Lung Cancer - right lung nodules GI Medical History: Reports: Gastroesophageal Reflux Disease, Hiatal Hernia Musculoskeltal Medical History: Reports: Arthritis Hematology: Reports: Anemia Past Surgical History Past Surgical History: Reports: Cardiac Catheterization, Coronary Artery Bypass Graft - stent, Coronary Stent, Hysterectomy, Mastectomy - Left breast, Orthopedic Surgery - right hip replacement Social History Lives with: Family Smoking Status: Never Smoker Frequency of Alcohol Use: None Hx Recreational Drug Use: No Drugs: None Hx Prescription Drug Abuse: No Family History Family History: Hypertension Parental Family History Reviewed: Yes Children Family History Reviewed: Yes Sibling(s) Family History Reviewed.: Yes Medication/Allergy Home Medications: Amlodipine Besylate [Norvasc 10 mg Tablet] 10 mg PO DAILY 03/06/19 Carbamazepine [Tegretol 200 mg Tablet] 200 mg PO Q12 03/06/19 Carvedilol [Coreg 25 mg Tablet] 25 mg PO Q12 03/06/19 Donepezil HCl [Aricept 5 mg Tablet] 5 mg PO QHS 03/06/19 Ferrous Sulfate [Iron] 325 mg PO DAILY 03/06/19 Lisinopril [Prinivil 10 mg Tablet] 10 mg PO DAILY 03/06/19 Polyethylene Glycol 3350 [Miralax Powder 17 gm/Packet] 17 packet PO DAILY 03/06/19 Primidone [Mysoline 50 mg Tablet] 100 mg PO TID 03/06/19 Rosuvastatin Calcium [Crestor 10 mg Tablet] 10 mg PO QHS 03/06/19 Sertraline HCl [Zoloft 50 mg Tablet] 50 mg PO QHS 03/06/19 Sucralfate [Carafate 1 gm Tablet] 1 gm PO QID 03/06/19 Furosemide [Lasix 40 mg Tablet] 40 mg PO DAILY #30 tablet 03/21/19 Potassium Chloride [Potassium Chloride 20 Meq Packet] 20 meq PO DAILY #30 packet 03/21/19 Famotidine [Pepcid 20 mg Tablet] 40 mg PO QHS 11/20/19 Psyllium Husk (with Sugar) [Metamucil Packet] 3.4 gm PO BID 11/20/19 Allergies/Adverse Reactions: promethazine HCl [From Phenergan] Allergy (Verified 12/07/18 14:57) Review of Systems Constitutional: PRESENT: fatigue Eyes: ABSENT: visual disturbances Ears: ABSENT: hearing changes Cardiovascular: PRESENT: dyspnea on exertion Respiratory: ABSENT: cough, hemoptysis Gastrointestinal: ABSENT: abdominal pain, constipation, diarrhea, hematemesis, hematochezia, nausea, vomiting Genitourinary: ABSENT: dysuria, hematuria Musculoskeletal: ABSENT: joint swelling Integumentary: ABSENT: rash, wounds Neurological: ABSENT: abnormal gait, abnormal speech, confusion, dizziness, focal weakness, syncope Psychiatric: ABSENT: anxiety, depression, homidical ideation, suicidal ideation Endocrine: ABSENT: cold intolerance, heat intolerance, menstrual abnormalities, polydipsia, polyuria Hematologic/Lymphatic: ABSENT: easy bleeding, easy bruising, lymphadenopathy Physical Exam Vital Signs: Temp Pulse Resp BP Pulse Ox 98.8 F 80 19 137/63 H 100 11/20/19 11:41 11/20/19 16:32 11/20/19 15:00 11/20/19 13:01 11/20/19 15:00 Intake & Output 11/19/19 11/20/19 11/21/19 06:59 06:59 06:59 Weight 65 kg General appearance: PRESENT: mild distress Head exam: PRESENT: atraumatic, normocephalic Eye exam: PRESENT: PERRLA Ear exam: PRESENT: normal external ear exam Mouth exam: PRESENT: moist, tongue midline Neck exam: PRESENT: full ROM Respiratory exam: PRESENT: decreased breath sounds, rales, other - Kyphosis Cardiovascular exam: PRESENT: RRR, +S1, +S2, systolic murmur Pulses: PRESENT: +2 pedal pulses bilateral Vascular exam: PRESENT: normal capillary refill GI/Abdominal exam: PRESENT: normal bowel sounds Rectal exam: PRESENT: deferred Extremities exam: PRESENT: pedal edema, other - Lymphedema of the left upper extremities Neurological exam: PRESENT: alert, CN II-XII grossly intact Psychiatric exam: PRESENT: appropriate affect Skin exam: PRESENT: dry, intact, warm. ABSENT: cyanosis, rash Results Laboratory Results: 11/20/19 11:52 11/20/19 11:52 11/20/19 11/20/19 11/20/19 11:52 11:52 11:52 WBC 11.9 H RBC 3.17 L Hgb 8.5 L Hct 26.1 L MCV 82 MCH 26.8 L MCHC 32.5 RDW 14.6 H Plt Count 281 Seg Neutrophils % 79.3 H Sodium 136.4 L Potassium 4.9 Chloride 103 Carbon Dioxide 26 Anion Gap 7 BUN 17 Creatinine 0.86 Est GFR ( Amer) > 60 Glucose 108 Calcium 9.0 Total Bilirubin 0.4 AST 18 Alkaline Phosphatase 150 H Total Protein 6.0 L Albumin 3.0 L Urine Color YELLOW Urine Appearance SLIGHTLY-CLOUDY Urine pH 5.0 Ur Specific [place] 1.012 Urine Protein NEGATIVE Urine Glucose (UA) NEGATIVE Urine Ketones NEGATIVE Urine Blood NEGATIVE Urine Nitrite NEGATIVE Ur Leukocyte Esterase TRACE H Ur Squamous Epith Cells MODERATE 11/20/19 11:52 Troponin I 0.043 NT-Pro-B Natriuret Pep [id number] H Impressions: Chest X-Ray 11/20/19 11:44 IMPRESSION: NO ACUTE RADIOGRAPHIC FINDING IN THE CHEST. Assessment & Plan - Diagnosis (1) Acute systolic (congestive) heart failure Is this a current diagnosis for this admission?: Yes Plan: Patient with acute systolic heart failure, admitted for management (2) Aortic valve stenosis Qualifiers: Cardiac valve disease etiology: nonrheumatic Qualified Code(s): I35.0 - Nonrheumatic aortic (valve) stenosis Is this a current diagnosis for this admission?: Yes - Time Time Spent: Greater than 70 Minutes Medications reviewed and adjusted accordingly: Yes Anticipated Discharge Disposition: Home, Self Care Anticipated Discharge Timeframe: within 72 hours
[2019-11-20 18:59] LABS: INTERNATIONAL RATION (INR) 1.24; PROTHROMBIN TIME 15.8 SEC (11.4-15.4)
[2019-11-20 19:01] LABS: PARTIAL THROMBOPLASTIN TIME 45.4 SEC (23.5-35.8)
[2019-11-20] MEDS: HEPARIN SOD (PORCINE) 5,000 UNIT/ML 1 ML VIAL SUBCUT SCH ×2 (19:09→21:46)
[2019-11-20 19:18] LABS: CREATINE KINASE < 20 U/L (30-135); DIGOXIN < 0.40 ng/mL (0.8-2.0)
[2019-11-20 19:26] LABS: ARTERIAL BLOOD H2CO3 1.09 mmol/L (1.05-1.35); ARTERIAL BLOOD HCO3 24.8 mmol/L (20-24); ARTERIAL BLOOD O2 SATURATION 97.1 % (94-98); ARTERIAL BLOOD PCO2 36.2 mmHg (35-45); ARTERIAL BLOOD PH 7.45 (7.35-7.45); ARTERIAL BLOOD TOTAL CO2 25.9 mmol/L (21-25)
[2019-11-20 19:27] LABS: CREATINE KINASE MB 0.27 ng/mL (<4.55); TROPONIN I 0.043 ng/mL
[2019-11-20 19:27] LABS: ARTERIAL BLOOD FIO2 21%
[2019-11-20] MEDS: FUROSEMIDE INJ/PF 40 MG/4 ML SDV IV SCH ×2 (19:29→21:46)
[2019-11-20] MEDS ORDERED: (PENDING PHARMACY ID) (Psyllium Husk (With Sugar) [Metamucil Packet] 3.4 GM) PO SCH (19:30)
[2019-11-20 19:31] LABS: FREE T4 (FREE THYROXINE) 1.28 ng/dL (0.78-2.19)
[2019-11-20 19:45] LABS: THYROID STIMULATING HORMONE 1.68 uIU/mL (0.47-4.68)
[2019-11-20] MEDS ORDERED: POLYETHYLENE GLYCOL 3350 POWDER 17 GM/1 PACKET PO SCH (20:00)
[2019-11-20] MEDS: POTASSIUM CHLORIDE 20 MEQ PACKET PO SCH (20:47)
[2019-11-20] MEDS: PRIMIDONE 50 MG TABLET PO SCH (20:47)
[2019-11-20] MEDS: SERTRALINE HCL 50 MG TABLET PO SCH (21:45)
[2019-11-20] MEDS: SUCRALFATE 1 GM TABLET PO SCH (21:45)
[2019-11-20] MEDS: FAMOTIDINE 20 MG TABLET PO SCH (21:45)
[2019-11-20] MEDS: ATORVASTATIN CALCIUM 20 MG TABLET PO SCH (21:46)
[2019-11-20] MEDS: CARVEDILOL 12.5 MG TABLET PO SCH (21:46)
[2019-11-20] MEDS: DONEPEZIL HCL 5 MG TABLET PO SCH (21:46)
[2019-11-20] MEDS: CARBAMAZEPINE 200 MG TABLET PO SCH (21:49)
[2019-11-20] MEDS ORDERED: POLYETHYLENE GLYCOL 3350 POWDER 17 GM/1 PACKET PO ONE (22:30)
[2019-11-21 00:26] LABS: TROPONIN I 0.035 ng/mL
[2019-11-21 00:27] LABS: CREATINE KINASE MB < 0.22 ng/mL (<4.55)
[2019-11-21] MEDS: HEPARIN SOD (PORCINE) 5,000 UNIT/ML 1 ML VIAL SUBCUT SCH ×3 (05:40→22:16)
[2019-11-21 06:39] LABS: ABSOLUTE BASOPHILS # (AUTO) 0.1 10^3/uL (0.0-0.2); ABSOLUTE EOSINOPHILS # (AUTO) 0.4 10^3/uL (0.0-0.6); ABSOLUTE LYMPHOCYTES (AUTO) 0.9 10^3/uL (0.5-4.7); ABSOLUTE MONOCYTES (AUTO) 1.2 10^3/uL (0.1-1.4); ABSOLUTE NEUT (AUTO) 10.2 10^3/uL (1.7-8.2); BASOPHILS % (AUTO) 0.6 % (0-2); HEMATOCRIT 26.5 % (36.0-47.0); HEMOGLOBIN 8.5 g/dL (12.0-15.5); MEAN CORPUSCULAR HEMOGLOBIN 26.6 pg (27.0-33.4); MEAN CORPUSCULAR HGB CONC 32.2 g/dL (32.0-36.0); MEAN CORPUSCULAR VOLUME 82 fl (80-97); MONOCYTES % (AUTO) 9.4 % (3-13); PLATELET COUNT 285 10^3/uL (150-450); RED BLOOD COUNT 3.22 10^6/uL (3.72-5.28); RED CELL DISTRIBUTION WIDTH 14.8 % (11.5-14.0); TOTAL CELLS COUNTED % (AUTO) 100 %; WHITE BLOOD COUNT 12.7 10^3/uL (4.0-10.5)
[2019-11-21 06:53] LABS: ALBUMIN 3.1 g/dL (3.5-5.0); ALKALINE PHOSPHATASE 160 U/L (38-126); ASPARTATE AMINO TRANSFERASE 20 U/L (14-36); BILIRUBIN,DIRECT 0.3 mg/dL (0.0-0.4); BILIRUBIN,TOTAL 0.3 mg/dL (0.2-1.3); CHOLESTEROL 113.29 mg/dL (0-200); TOTAL PROTEIN 5.7 g/dL (6.3-8.2); TRIGLYCERIDES 155 mg/dL (<150)
[2019-11-21 07:04] LABS: DIRECT LDL 44 mg/dL (<100)
[2019-11-21 07:05] LABS: CREATINE KINASE < 20 U/L (30-135); TROPONIN I 0.034 ng/mL
[2019-11-21 07:08] LABS: CREATINE KINASE MB < 0.22 ng/mL (<4.55)
[2019-11-21 07:12] LABS: APPEARANCE,URINE CLEAR; BILIRUBIN,URINE NEGATIVE (NEGATIVE); COLOR,URINE YELLOW; GLUCOSE, URINE NEGATIVE (NEGATIVE); KETONES,URINE NEGATIVE (NEGATIVE); LEUKOCYTE ESTERASE,URINE NEGATIVE (NEGATIVE); NITRITE,URINE NEGATIVE (NEGATIVE); PROTEIN,URINE NEGATIVE (NEGATIVE); URINE SPECIFIC GRAVITY 1.012; UROBILINOGEN,URINE NEGATIVE mg/dL (<2.0)
[2019-11-21 07:27] LABS: ADD MANUAL MICROSCOPIC YES
[2019-11-21 07:28] LABS: BACTERIA,URINE TRACE /HPF
[2019-11-21 07:29] LABS: RBC,URINE NONE SEEN /HPF
[2019-11-21] MEDS: CARVEDILOL 12.5 MG TABLET PO SCH ×2 (09:52→22:15)
[2019-11-21] MEDS: FERROUS SULFATE 325 MG TABLET PO SCH (09:52)
[2019-11-21] MEDS: PSYLLIUM SEED-SF 5.85 GM PACKET PO SCH ×2 (09:52→17:54)
[2019-11-21] MEDS: POLYETHYLENE GLYCOL 3350 POWDER 17 GM/1 PACKET PO SCH (09:52)
[2019-11-21] MEDS: LISINOPRIL 10 MG TABLET PO SCH (09:52)
[2019-11-21] MEDS: SUCRALFATE 1 GM TABLET PO SCH ×4 (09:52→22:15)
[2019-11-21] MEDS: PRIMIDONE 50 MG TABLET PO SCH ×3 (09:52→17:55)
[2019-11-21] MEDS: POTASSIUM CHLORIDE 20 MEQ PACKET PO SCH (09:53)
[2019-11-21] MEDS: CARBAMAZEPINE 200 MG TABLET PO SCH ×2 (09:53→22:15)
--- NOTE | 2019-11-21 11:15 | EKG REPORT ---
SEVERITY:- ABNORMAL ECG - SINUS RHYTHM RBBB AND LAFB PROBABLE LEFT VENTRICULAR HYPERTROPHY : Confirmed by: Estefany Degroot MD 21-Nov-2019 11:15:18
--- NOTE | 2019-11-21 11:15 | EKG REPORT ---
SEVERITY:- ABNORMAL ECG - SINUS RHYTHM RIGHT BUNDLE BRANCH BLOCK LEFT VENTRICULAR HYPERTROPHY : Confirmed by: Estefany Degroot MD 21-Nov-2019 11:15:25
[2019-11-21] MEDS: FUROSEMIDE INJ/PF 40 MG/4 ML SDV IV SCH ×2 (16:19→22:26)
[2019-11-21] MEDS: ACETAMINOPHEN 325 MG TABLET PO PRN ×2 (16:20→22:20)
--- NOTE | 2019-11-21 20:52 | PDOC PROGRESS REPORT ---
Subjective Progress Note for:: 11/21/19 Subjective:: Patient seen by the bedside, she was admitted yesterday for CHF she is very frail looking Reason For Visit: ACUTE DECOMPENSATED,HEART FAILURE Physical Exam Vital Signs: Temp Pulse Resp BP Pulse Ox 98.3 F 82 16 155/72 H 100 11/21/19 16:24 11/21/19 16:24 11/21/19 16:24 11/21/19 16:24 11/21/19 16:24 Intake & Output 11/20/19 11/21/19 11/22/19 06:59 06:59 06:59 Intake Total 350 965 Output Total 1120 500 Balance -770 465 Weight 70 kg General appearance: PRESENT: no acute distress Head exam: PRESENT: atraumatic, normocephalic Eye exam: PRESENT: PERRLA Ear exam: PRESENT: normal external ear exam Mouth exam: PRESENT: moist, tongue midline Neck exam: PRESENT: full ROM Respiratory exam: PRESENT: rales Cardiovascular exam: PRESENT: RRR, +S1, +S2 Vascular exam: PRESENT: normal capillary refill GI/Abdominal exam: PRESENT: normal bowel sounds, soft Rectal exam: PRESENT: deferred Neurological exam: PRESENT: alert, CN II-XII grossly intact. ABSENT: motor sensory deficit Psychiatric exam: PRESENT: appropriate affect, normal mood Skin exam: PRESENT: dry, intact, warm. ABSENT: cyanosis, rash Results Laboratory Results: 11/21/19 05:52 11/20/19 11:52 11/21/19 11/21/19 11/21/19 05:52 05:52 06:25 WBC 12.7 H RBC 3.22 L Hgb 8.5 L Hct 26.5 L MCV 82 MCH 26.6 L MCHC 32.2 RDW 14.8 H Plt Count 285 Seg Neutrophils % 80.0 H Total Bilirubin 0.3 AST 20 Alkaline Phosphatase 160 H Total Protein 5.7 L Albumin 3.1 L Triglycerides 155 H Cholesterol 113.29 LDL Cholesterol Direct 44 VLDL Cholesterol 31.0 HDL Cholesterol 39 L Urine Color YELLOW Urine Appearance CLEAR Urine pH 5.0 Ur Specific [place] 1.012 Urine Protein NEGATIVE Urine Glucose (UA) NEGATIVE Urine Ketones NEGATIVE Urine Blood NEGATIVE Urine Nitrite NEGATIVE Ur Leukocyte Esterase NEGATIVE 11/20/19 11/20/19 11/20/19 11:52 18:34 18:34 Creatine Kinase < 20 L CK-MB (CK-2) 0.27 Troponin I 0.043 0.043 NT-Pro-B Natriuret Pep [id number] H 11/20/19 11/20/19 11/21/19 23:41 23:41 05:52 Creatine Kinase < 20 L < 20 L CK-MB (CK-2) < 0.22 Troponin I 0.035 NT-Pro-B Natriuret Pep 11/21/19 05:52 Creatine Kinase CK-MB (CK-2) < 0.22 Troponin I 0.034 NT-Pro-B Natriuret Pep Impressions: Chest X-Ray 11/20/19 11:44 IMPRESSION: NO ACUTE RADIOGRAPHIC FINDING IN THE CHEST. Assessment & Plan - Diagnosis (1) Acute systolic (congestive) heart failure Is this a current diagnosis for this admission?: Yes Plan: Patient is improving continue treatment, Discontinue lisinopril start Entresto (2) Aortic valve stenosis Qualifiers: Cardiac valve disease etiology: nonrheumatic Qualified Code(s): I35.0 - Nonrheumatic aortic (valve) stenosis Is this a current diagnosis for this admission?: Yes - Time Time Spent with patient: 25-34 minutes Level of Care: IMCU Medications reviewed and adjusted accordingly: Yes Anticipated discharge: Home Anticipated DC Timeframe: Other
[2019-11-21] MEDS: DONEPEZIL HCL 5 MG TABLET PO SCH (22:13)
[2019-11-21] MEDS: SERTRALINE HCL 50 MG TABLET PO SCH (22:14)
[2019-11-21] MEDS: FAMOTIDINE 20 MG TABLET PO SCH (22:14)
[2019-11-21] MEDS: ATORVASTATIN CALCIUM 20 MG TABLET PO SCH (22:14)
[2019-11-22] MEDS: HEPARIN SOD (PORCINE) 5,000 UNIT/ML 1 ML VIAL SUBCUT SCH ×3 (05:21→21:52)
[2019-11-22 06:38] LABS: ABSOLUTE BASOPHILS # (AUTO) 0.1 10^3/uL (0.0-0.2); ABSOLUTE EOSINOPHILS # (AUTO) 0.3 10^3/uL (0.0-0.6); ABSOLUTE LYMPHOCYTES (AUTO) 0.9 10^3/uL (0.5-4.7); ABSOLUTE MONOCYTES (AUTO) 0.7 10^3/uL (0.1-1.4); ABSOLUTE NEUT (AUTO) 6.9 10^3/uL (1.7-8.2); BASOPHILS % (AUTO) 0.6 % (0-2); EOSINOPHILS % (AUTO) 3.4 % (0-6); HEMATOCRIT 26.5 % (36.0-47.0); HEMOGLOBIN 8.7 g/dL (12.0-15.5); LYMPHOCYTES % (AUTO) 9.9 % (13-45); MEAN CORPUSCULAR HEMOGLOBIN 26.8 pg (27.0-33.4); MEAN CORPUSCULAR HGB CONC 32.7 g/dL (32.0-36.0); MEAN CORPUSCULAR VOLUME 82 fl (80-97); MONOCYTES % (AUTO) 8.3 % (3-13); PLATELET COUNT 303 10^3/uL (150-450); RED BLOOD COUNT 3.24 10^6/uL (3.72-5.28); RED CELL DISTRIBUTION WIDTH 14.4 % (11.5-14.0); SEGMENTED NEUTROPHILS % (AUTO) 77.8 % (42-78); TOTAL CELLS COUNTED % (AUTO) 100 %; WHITE BLOOD COUNT 8.8 10^3/uL (4.0-10.5)
[2019-11-22 06:59] LABS: ANION GAP 9 (5-19); BLOOD UREA NITROGEN 16 mg/dL (7-20); CALCIUM 8.8 mg/dL (8.4-10.2); CARBON DIOXIDE 27 mmol/L (22-30); CHLORIDE 102 mmol/L (98-107); GLUCOSE 98 mg/dL (75-110); POTASSIUM 4.3 mmol/L (3.6-5.0)
[2019-11-22] MEDS: POTASSIUM CHLORIDE 20 MEQ PACKET PO SCH (09:47)
[2019-11-22] MEDS: PRIMIDONE 50 MG TABLET PO SCH ×3 (09:47→17:46)
[2019-11-22] MEDS: FUROSEMIDE INJ/PF 40 MG/4 ML SDV IV SCH ×2 (09:47→21:54)
[2019-11-22] MEDS: SUCRALFATE 1 GM TABLET PO SCH ×4 (09:47→21:52)
[2019-11-22] MEDS: CARVEDILOL 12.5 MG TABLET PO SCH ×2 (09:47→21:54)
[2019-11-22] MEDS: FERROUS SULFATE 325 MG TABLET PO SCH (09:47)
[2019-11-22] MEDS: LISINOPRIL 10 MG TABLET PO SCH (09:47)
[2019-11-22] MEDS: PSYLLIUM SEED-SF 5.85 GM PACKET PO SCH ×2 (09:48→17:42)
[2019-11-22] MEDS: POLYETHYLENE GLYCOL 3350 POWDER 17 GM/1 PACKET PO SCH (09:48)
[2019-11-22] MEDS: CARBAMAZEPINE 200 MG TABLET PO SCH ×2 (09:49→21:55)
--- NOTE | 2019-11-22 13:11 | PDOC PROGRESS REPORT ---
Subjective Progress Note for:: 11/22/19 Subjective:: Patient seen by the bedside tomorrow she is improving Reason For Visit: ACUTE DECOMPENSATED,HEART FAILURE Physical Exam Vital Signs: Temp Pulse Resp BP Pulse Ox 98.1 F 80 24 H 148/81 H 98 11/22/19 11:44 11/22/19 11:44 11/22/19 11:44 11/22/19 11:44 11/22/19 11:44 Intake & Output 11/21/19 11/22/19 11/23/19 06:59 06:59 06:59 Intake Total 350 965 Output Total 1120 625 700 Balance -770 340 -700 Weight 70 kg 69.2 kg General appearance: PRESENT: no acute distress Respiratory exam: PRESENT: clear to auscultation ulysses Cardiovascular exam: PRESENT: +S1, +S2 GI/Abdominal exam: PRESENT: soft Neurological exam: PRESENT: alert Results Laboratory Results: 11/22/19 05:40 11/22/19 05:40 11/22/19 11/22/19 05:40 05:40 WBC 8.8 RBC 3.24 L Hgb 8.7 L Hct 26.5 L MCV 82 MCH 26.8 L MCHC 32.7 RDW 14.4 H Plt Count 303 Seg Neutrophils % 77.8 Sodium 138.3 Potassium 4.3 Chloride 102 Carbon Dioxide 27 Anion Gap 9 BUN 16 Creatinine 0.84 Est GFR ( Amer) > 60 Glucose 98 Calcium 8.8 11/20/19 11/20/19 11/20/19 11:52 18:34 18:34 Creatine Kinase < 20 L CK-MB (CK-2) 0.27 Troponin I 0.043 0.043 NT-Pro-B Natriuret Pep [id number] H 11/20/19 11/20/19 11/21/19 23:41 23:41 05:52 Creatine Kinase < 20 L < 20 L CK-MB (CK-2) < 0.22 Troponin I 0.035 NT-Pro-B Natriuret Pep 11/21/19 05:52 Creatine Kinase CK-MB (CK-2) < 0.22 Troponin I 0.034 NT-Pro-B Natriuret Pep Impressions: Chest X-Ray 11/20/19 11:44 IMPRESSION: NO ACUTE RADIOGRAPHIC FINDING IN THE CHEST. Assessment & Plan - Diagnosis (1) Acute systolic (congestive) heart failure Is this a current diagnosis for this admission?: Yes Plan: Patient is improving continue treatment, Discontinue lisinopril start Entresto (2) Aortic valve stenosis Qualifiers: Cardiac valve disease etiology: nonrheumatic Qualified Code(s): I35.0 - Nonrheumatic aortic (valve) stenosis Is this a current diagnosis for this admission?: Yes - Time Time Spent with patient: 25-34 minutes Level of Care: IMCU Medications reviewed and adjusted accordingly: Yes Anticipated discharge: Home Anticipated DC Timeframe: within 72 hours
[2019-11-22] MEDS: ACETAMINOPHEN 325 MG TABLET PO PRN (19:02)
[2019-11-22] MEDS: FAMOTIDINE 20 MG TABLET PO SCH (21:52)
[2019-11-22] MEDS: DONEPEZIL HCL 5 MG TABLET PO SCH (21:52)
[2019-11-22] MEDS: SERTRALINE HCL 50 MG TABLET PO SCH (21:52)
[2019-11-22] MEDS: ATORVASTATIN CALCIUM 20 MG TABLET PO SCH (21:54)
[2019-11-23] MEDS: HEPARIN SOD (PORCINE) 5,000 UNIT/ML 1 ML VIAL SUBCUT SCH ×3 (06:14→21:41)
[2019-11-23] MEDS: ACETAMINOPHEN 325 MG TABLET PO PRN ×2 (08:46→16:13)
[2019-11-23] MEDS: POTASSIUM CHLORIDE 20 MEQ PACKET PO SCH (10:39)
[2019-11-23] MEDS: FERROUS SULFATE 325 MG TABLET PO SCH (10:40)
[2019-11-23] MEDS: FUROSEMIDE INJ/PF 40 MG/4 ML SDV IV SCH ×2 (10:40→21:39)
[2019-11-23] MEDS: CARVEDILOL 12.5 MG TABLET PO SCH ×2 (10:40→21:37)
[2019-11-23] MEDS: PRIMIDONE 50 MG TABLET PO SCH ×3 (10:40→18:18)
[2019-11-23] MEDS: PSYLLIUM SEED-SF 5.85 GM PACKET PO SCH ×2 (10:40→18:22)
[2019-11-23] MEDS: POLYETHYLENE GLYCOL 3350 POWDER 17 GM/1 PACKET PO SCH (10:42)
[2019-11-23] MEDS: SUCRALFATE 1 GM TABLET PO SCH ×4 (10:42→21:38)
[2019-11-23] MEDS: CARBAMAZEPINE 200 MG TABLET PO SCH ×2 (10:44→21:41)
--- NOTE | 2019-11-23 15:31 | PDOC PROGRESS REPORT ---
Subjective Progress Note for:: 11/23/19 Subjective:: Patient seen by the bedside no new complaints Reason For Visit: ACUTE DECOMPENSATED,HEART FAILURE Physical Exam Vital Signs: Temp Pulse Resp BP Pulse Ox 98.5 F 73 19 141/54 H 97 11/23/19 11:34 11/23/19 11:34 11/23/19 11:34 11/23/19 11:34 11/23/19 11:34 Intake & Output 11/22/19 11/23/19 11/24/19 06:59 06:59 06:59 Intake Total 965 Output Total 625 1450 Balance 340 -1450 Weight 69.2 kg 69.9 kg General appearance: PRESENT: no acute distress Eye exam: PRESENT: PERRLA Respiratory exam: PRESENT: clear to auscultation ulysses Cardiovascular exam: PRESENT: +S1, +S2 GI/Abdominal exam: PRESENT: soft Neurological exam: PRESENT: alert, CN II-XII grossly intact Results Laboratory Results: 11/22/19 05:40 11/22/19 05:40 11/21/19 06:25 Clean Catch Midstream Urine Culture - Final Escherichia Coli Mixed Urogenital Shannan 11/20/19 11/20/19 11/20/19 11:52 18:34 18:34 Creatine Kinase < 20 L CK-MB (CK-2) 0.27 Troponin I 0.043 0.043 NT-Pro-B Natriuret Pep [id number] H 11/20/19 11/20/19 11/21/19 23:41 23:41 05:52 Creatine Kinase < 20 L < 20 L CK-MB (CK-2) < 0.22 Troponin I 0.035 NT-Pro-B Natriuret Pep 11/21/19 05:52 Creatine Kinase CK-MB (CK-2) < 0.22 Troponin I 0.034 NT-Pro-B Natriuret Pep Impressions: Chest X-Ray 11/20/19 11:44 IMPRESSION: NO ACUTE RADIOGRAPHIC FINDING IN THE CHEST. Assessment & Plan - Diagnosis (1) Acute systolic (congestive) heart failure Is this a current diagnosis for this admission?: Yes Plan: Patient is improving continue treatment, Discontinue lisinopril start Entresto (2) Aortic valve stenosis Qualifiers: Cardiac valve disease etiology: nonrheumatic Qualified Code(s): I35.0 - Nonrheumatic aortic (valve) stenosis Is this a current diagnosis for this admission?: Yes - Time Time Spent with patient: 25-34 minutes Level of Care: IMCU Anticipated discharge: Home Anticipated DC Timeframe: within 72 hours
[2019-11-23 16:23] LABS: ABSOLUTE RETICS # 0.075 10^6/uL (0.028-0.122); RETICULOCYTE COUNT (AUTO) 1.93 % (0.66-2.85)
[2019-11-23 16:34] LABS: IRON(TIBC) 40.4 ug/dL (37-170)
[2019-11-23 17:40] LABS: FOLATE 5.67 ng/mL (>2.76)
[2019-11-23] MEDS: SERTRALINE HCL 50 MG TABLET PO SCH (21:36)
[2019-11-23] MEDS: FAMOTIDINE 20 MG TABLET PO SCH (21:37)
[2019-11-23] MEDS: DONEPEZIL HCL 5 MG TABLET PO SCH (21:37)
[2019-11-23] MEDS: ATORVASTATIN CALCIUM 20 MG TABLET PO SCH (21:38)
[2019-11-23] MEDS: SACUBITRIL/VALSARTAN 49 MG/51 MG TABLET PO SCH (21:41)
[2019-11-24] MEDS: HEPARIN SOD (PORCINE) 5,000 UNIT/ML 1 ML VIAL SUBCUT SCH ×3 (05:09→22:02)
[2019-11-24] MEDS: PRIMIDONE 50 MG TABLET PO SCH ×3 (10:35→17:48)
[2019-11-24] MEDS: FUROSEMIDE INJ/PF 40 MG/4 ML SDV IV SCH ×2 (10:35→21:58)
[2019-11-24] MEDS: FERROUS SULFATE 325 MG TABLET PO SCH (10:35)
[2019-11-24] MEDS: CARVEDILOL 12.5 MG TABLET PO SCH ×2 (10:35→22:01)
[2019-11-24] MEDS: SUCRALFATE 1 GM TABLET PO SCH ×4 (10:35→22:10)
[2019-11-24] MEDS: POTASSIUM CHLORIDE 20 MEQ PACKET PO SCH (10:36)
[2019-11-24] MEDS: PSYLLIUM SEED-SF 5.85 GM PACKET PO SCH ×2 (10:36→19:02)
[2019-11-24] MEDS: POLYETHYLENE GLYCOL 3350 POWDER 17 GM/1 PACKET PO SCH (10:53)
[2019-11-24] MEDS: SACUBITRIL/VALSARTAN 49 MG/51 MG TABLET PO SCH ×2 (10:55→22:01)
[2019-11-24] MEDS: CARBAMAZEPINE 200 MG TABLET PO SCH ×2 (10:55→22:01)
[2019-11-24] MEDS: ACETAMINOPHEN 325 MG TABLET PO PRN ×2 (17:48→23:38)
--- NOTE | 2019-11-24 19:53 | XCELERA REPORT ---
[address] [address] Transthoracic Echocardiogram Report Name: BERNABE DORMAN Age: 84 yrs Gender: Female : 1935 Patient Status: Inpatient Patient Location: [address] [place], [place] [address] Study Date: 11/20/2019 06:34 PM Height: 69 in Weight: 143 lb BSA: 1.8 m2 Procedure: A two-dimensional transthoracic echocardiogram with color flow and Doppler was performed. Study Quality: Fair. Reason For Study: chf History: CHF. Ordering Physician: YANIV CHIN Performed By: Carina Holman Interpretation Summary The left ventricle is mildly dilated. There is normal left ventricular wall thickness. LV EF is 355 TO 40% Left ventricular systolic function is moderately reduced. LV diastolic function could not be adequately assessed. There is moderate global hypokinesis of the left ventricle. There is no thrombus. No ASD,VSD,or PFO seen. The right ventricle is not well visualized secondary to technical limitations The right ventricle is mildly dilated. The right atrium is borderline dilated. The left atrium is mildly dilated. There is no evidence of mitral valve prolapse. There is no vegetation seen on the mitral valve. There is no mitral valve stenosis. There is a mild to moderate amount of mitral regurgitation There is moderate to severe aortic stenosis There is a peak gradient of 48.6 mm of Hg , and mean gradiient of 27.5 mm of Hg. There is a mild to moderate amount of aortic regurgitation There is no tricuspid stenosis. There is a moderate amount of tricuspid regurgitation There is servere pulmonary hypertension by echo RVSP is 75 mm of Hg , with RA mean of atleast 20. There is no pulmonic valvular stenosis. There is a mild amount of pulmonic regurgitation The aortic root is normal size. The inferior vena cava appeared dilated and did not change with respiration (RAP > 20 mmHg) There is no pericardial effusion. Large left pleural effusion. MMode/2D Measurements & Calculations RVDd: 3.1 cm LVIDd: 5.9 cm FS: 22.7 % Ao root diam: 2.6 cm IVSd: 1.4 cm LVIDs: 4.5 cm EDV(Teich): 170.7 ml Ao root area: 5.4 cm2 LVPWd: 1.1 cm ESV(Teich): 93.9 ml LA dimension: 4.1 cm EF(Teich): 45.0 % LVOT diam: 2.1 cm LVOT area: 3.4 cm2 Doppler Measurements & Calculations MV E max danya: MV P1/2t max danya: Ao V2 max: AI max danya: 143.1 cm/sec 169.7 cm/sec 348.7 cm/sec 491.7 cm/sec MV A max danya: MV P1/2t: 71.5 msec Ao max PG: AI max P.3 cm/sec MVA(P1/2t): 3.1 cm2 48.6 mmHg 96.7 mmHg MV E/A: 1.5 MV dec slope: Ao V2 mean: AI dec slope: 242.8 cm/sec 414.3 cm/sec2 695.1 cm/sec2 Ao mean PG: AI P1/2t: MV dec time: 0.18 sec27.5 mmHg 347.6 msec Ao V2 VTI: 69.3 cm DONOVAN(I,D): 0.93 cm2 DONOVAN(V,D): 0.87 cm2 LV V1 max PG: SV(LVOT): 64.7 ml PA V2 max: PI end-d danya: 3.1 mmHg 88.8 cm/sec 213.1 cm/sec LV V1 mean PG: PA max P.8 mmHg 3.2 mmHg LV V1 max: 88.4 cm/sec LV V1 mean: 63.7 cm/sec LV V1 VTI: 18.9 cm TR max danya: AV P1/2t-pr_phl: MV P1/2t-pr_phl: 373.3 cm/sec 347.6 msec 71.5 msec TR max P.7 mmHg Left Ventricle The left ventricle is mildly dilated. There is normal left ventricular wall thickness. LV EF is 355 TO 40%. Left ventricular systolic function is moderately reduced. LV diastolic function could not be adequately assessed. There is moderate global hypokinesis of the left ventricle. There is no thrombus. No ASD,VSD,or PFO seen. Right Ventricle The right ventricle is not well visualized secondary to technical limitations. The right ventricle is mildly dilated. Atria The right atrium is borderline dilated. The left atrium is mildly dilated. Mitral Valve There is no evidence of mitral valve prolapse. There is no vegetation seen on the mitral valve. There is no mitral valve stenosis. There is a mild to moderate amount of mitral regurgitation. Aortic Valve There is no aortic valvular vegetation. There is moderate to severe aortic stenosis. There is a peak gradient of 48.6 mm of Hg , and mean gradiient of 27.5 mm of Hg. There is a mild to moderate amount of aortic regurgitation. Tricuspid Valve There is no tricuspid stenosis. There is a moderate amount of tricuspid regurgitation. There is servere pulmonary hypertension by echo. RVSP is 75 mm of Hg , with RA mean of atleast 20. Pulmonic Valve There is no pulmonic valvular stenosis. There is a mild amount of pulmonic regurgitation. Great Vessels The aortic root is normal size. The inferior vena cava appeared dilated and did not change with respiration (RAP > 20 mmHg). Effusions There is no pericardial effusion. Large left pleural effusion. : YANIV CHIN Lakshmi
--- NOTE | 2019-11-24 20:38 | PDOC PROGRESS REPORT ---
Subjective Progress Note for:: 11/24/19 Subjective:: Patient continue to report fatigue. Oral intake remain a challenge. No chest pain. Breathing is improving. No fever or chills. No nausea or vomiting. No significant abdominal pain with episode of diarrhea this morning. Reason For Visit: ACUTE DECOMPENSATED,HEART FAILURE Physical Exam Vital Signs: Temp Pulse Resp BP Pulse Ox 98.9 F 75 18 142/62 H 91 L 11/24/19 15:50 11/24/19 15:50 11/24/19 15:50 11/24/19 15:50 11/24/19 15:50 Intake & Output 11/23/19 11/24/19 11/25/19 06:59 06:59 06:59 Intake Total 750 337 Output Total 1450 1600 Balance -1450 -850 337 Weight 69.9 kg 68.7 kg General appearance: PRESENT: no acute distress Head exam: PRESENT: atraumatic, normocephalic Eye exam: PRESENT: conjunctiva pink, EOMI. ABSENT: scleral icterus Ear exam: PRESENT: normal external ear exam Mouth exam: PRESENT: moist, tongue midline Neck exam: PRESENT: full ROM. ABSENT: carotid bruit, JVD, lymphadenopathy, thyromegaly Respiratory exam: PRESENT: clear to auscultation ulysses, decreased breath sounds - at lung bases Cardiovascular exam: PRESENT: RRR, +S1, +S2, systolic murmur. ABSENT: diastolic murmur, rubs Murmur grade: 4 Vascular exam: PRESENT: normal capillary refill. ABSENT: pallor GI/Abdominal exam: PRESENT: normal bowel sounds, soft. ABSENT: distended, guarding, mass, organolmegaly, rebound, tenderness Extremities exam: ABSENT: pedal edema Musculoskeletal exam: PRESENT: deformity - related to multiple joints involvement with arthritis, left upper extremity post mastectomy lymphedema. Neurological exam: PRESENT: alert, awake, oriented to person, oriented to place, oriented to time, oriented to situation, CN II-XII grossly intact. ABSENT: motor sensory deficit Psychiatric exam: PRESENT: appropriate affect, normal mood. ABSENT: homicidal i deation, suicidal ideation Skin exam: PRESENT: dry, intact, warm. ABSENT: cyanosis, rash Results Laboratory Results: 11/22/19 05:40 11/22/19 05:40 11/20/19 11/20/19 11/20/19 11:52 18:34 18:34 Creatine Kinase < 20 L CK-MB (CK-2) 0.27 Troponin I 0.043 0.043 NT-Pro-B Natriuret Pep [id number] H 11/20/19 11/20/19 11/21/19 23:41 23:41 05:52 Creatine Kinase < 20 L < 20 L CK-MB (CK-2) < 0.22 Troponin I 0.035 NT-Pro-B Natriuret Pep 11/21/19 05:52 Creatine Kinase CK-MB (CK-2) < 0.22 Troponin I 0.034 NT-Pro-B Natriuret Pep Impressions: Chest X-Ray 11/20/19 11:44 IMPRESSION: NO ACUTE RADIOGRAPHIC FINDING IN THE CHEST. Assessment & Plan - Diagnosis (1) Acute on chronic combined systolic (congestive) and diastolic (congestive) heart failure Is this a current diagnosis for this admission?: Yes Plan: Continue current medication management. I discussed echocardiogram findings with Dr. Stockton. (2) Valvular heart disease Is this a current diagnosis for this admission?: Yes Plan: Possible contributing factors to her CHF as well as fluid overload as per her fred mcmillan report on forcing fluid on patient at home. (3) UTI (urinary tract infection) Qualifiers: Urinary tract infection type: site unspecified Hematuria presence: without hematuria Qualified Code(s): N39.0 - Urinary tract infection, site not specified Is this a current diagnosis for this admission?: Yes Plan: Due to E.coli. In view of her advanced age, continued fatigue, and morbidities, I will start on IV Rocephin coverage based on sensitivity report. (4) Essential hypertension Is this a current diagnosis for this admission?: Yes Plan: Continue all current medication management and dietary restrictions. (5) CAD (coronary artery disease) Qualifiers: Coronary Disease-Associated Artery/Lesion type: [place] artery [place] vs. transplanted heart: [place] heart Associated angina: with unstable angina Qualified Code(s): I25.110 - Atherosclerotic heart disease of [place] coronary artery with unstable angina pectoris Is this a current diagnosis for this admission?: Yes Plan: Continue all current medication management and dietary restrictions. (6) Hyperlipidemia Qualifiers: Hyperlipidemia type: unspecified Qualified Code(s): E78.5 - Hyperlipidemia, unspecified Is this a current diagnosis for this admission?: Yes Plan: Continue all current medication management and dietary restrictions. (7) COPD (chronic obstructive pulmonary disease) Qualifiers: COPD type: unspecified COPD Qualified Code(s): J44.9 - Chronic obstructive pulmonary disease, unspecified Is this a current diagnosis for this admission?: Yes Plan: Continue all current medication management and dietary restrictions. - Time Time Spent with patient: 25-34 minutes Level of Care: IMCU Medications reviewed and adjusted accordingly: Yes Anticipated discharge: Home with Homehealth Anticipated DC Timeframe: within 72 hours - Inpatient Certification Based on my medical assessment, after consideration of the patient's comorbidities, presenting symptoms, or acuity I expect that the services needed warrant INPATIENT care.: Yes I certify that my determination is in accordance with my understanding of Medicare's requirements for reasonable and necessary INPATIENT services [42 CFR 412.3e].: Yes Medical Necessity: Significant Comorbidiites Make Outpatient Treatment Too Risky, Need Close Monitoring Due to Risk of Patient Decompensation, Need For Continuous Telemetry Monitoring, Need for IV Antibiotics, Risk of Complication if Not Cared For in Hospital, Risk of Diagnosis Which Will Require Inpatient Eval/Care/Monitoring Post Hospital Care: 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 Obtain NT-Pro BNP, BMP and Mag level in AM.
[2019-11-24] MEDS: CEFTRIAXONE 1 GM/D5W RTU 1 GM/50 ML RTUPB IV SCH (22:00)
[2019-11-24] MEDS: FAMOTIDINE 20 MG TABLET PO SCH (22:01)
[2019-11-24] MEDS: ATORVASTATIN CALCIUM 20 MG TABLET PO SCH (22:02)
[2019-11-24] MEDS: DONEPEZIL HCL 5 MG TABLET PO SCH (22:02)
[2019-11-24] MEDS: SERTRALINE HCL 50 MG TABLET PO SCH (22:10)
[2019-11-25] MEDS: HEPARIN SOD (PORCINE) 5,000 UNIT/ML 1 ML VIAL SUBCUT SCH ×3 (06:39→23:09)
[2019-11-25] MEDS: CARVEDILOL 12.5 MG TABLET PO SCH ×2 (09:21→23:07)
[2019-11-25] MEDS: CARBAMAZEPINE 200 MG TABLET PO SCH ×2 (09:21→23:07)
[2019-11-25] MEDS: PSYLLIUM SEED-SF 5.85 GM PACKET PO SCH ×2 (09:21→17:00)
[2019-11-25] MEDS: FERROUS SULFATE 325 MG TABLET PO SCH (09:21)
[2019-11-25] MEDS: FUROSEMIDE INJ/PF 40 MG/4 ML SDV IV SCH ×2 (09:21→23:08)
[2019-11-25] MEDS: SACUBITRIL/VALSARTAN 49 MG/51 MG TABLET PO SCH ×2 (09:21→23:07)
[2019-11-25] MEDS: PRIMIDONE 50 MG TABLET PO SCH ×3 (09:21→17:30)
[2019-11-25] MEDS: SUCRALFATE 1 GM TABLET PO SCH ×4 (09:21→23:08)
[2019-11-25] MEDS: POTASSIUM CHLORIDE 20 MEQ PACKET PO SCH (09:21)
[2019-11-25] MEDS: POLYETHYLENE GLYCOL 3350 POWDER 17 GM/1 PACKET PO SCH (09:22)
[2019-11-25 10:39] LABS: ANION GAP 11 (5-19); BLOOD UREA NITROGEN 20 mg/dL (7-20); CALCIUM 9.2 mg/dL (8.4-10.2); CARBON DIOXIDE 29 mmol/L (22-30); CHLORIDE 98 mmol/L (98-107); GLUCOSE 130 mg/dL (75-110); POTASSIUM 4.2 mmol/L (3.6-5.0)
[2019-11-25] MEDS: ACETAMINOPHEN 325 MG TABLET PO PRN (13:29)
[2019-11-25] MEDS: CEFTRIAXONE 1 GM/D5W RTU 1 GM/50 ML RTUPB IV SCH (17:30)
--- NOTE | 2019-11-25 21:11 | PDOC PROGRESS REPORT ---
Subjective Progress Note for:: 11/25/19 Subjective:: Patient denied any chest pain or difficulty with breathing. No fever or chills. No abdominal pain, nausea or vomiting. Left upper extremity lymphedema pump in use during my visit today. Daughter at bedside. Reason For Visit: ACUTE DECOMPENSATED,HEART FAILURE Physical Exam Vital Signs: Temp Pulse Resp BP Pulse Ox 98.4 F 79 16 168/86 H 100 11/25/19 08:03 11/25/19 08:03 11/25/19 08:03 11/25/19 08:03 11/25/19 08:03 Intake & Output 11/24/19 11/25/19 11/26/19 06:59 06:59 06:59 Intake Total 750 387 Output Total 1600 1600 Balance -850 -1213 Weight 68.7 kg 68.8 kg Physical Exam: General appearance: PRESENT: no acute distress Head exam: PRESENT: atraumatic, normocephalic Eye exam: PRESENT: conjunctiva pink. ABSENT: pallor, sclera icterus Mouth exam: PRESENT: moist, tongue midline Respiratory exam: PRESENT: clear to auscultation ulysses, decreased breath sounds - at lung bases Cardiovascular exam: PRESENT: RRR, +S1, +S2, systolic murmur. ABSENT: diastolic murmur, rubs Murmur grade: 4 GI/Abdominal exam: PRESENT: normal bowel sounds, soft. ABSENT: distended, guarding, mass, organomegaly, rebound, tenderness Extremities exam: ABSENT: pedal edema Musculoskeletal exam: PRESENT: deformity - related to multiple joints involvement with arthritis, left upper extremity post mastectomy lymphedema. Neurological exam: PRESENT: alert, awake, oriented to person, oriented to place, oriented to time, oriented to situation, CN II-XII grossly intact. ABSENT: motor sensory deficit Psychiatric exam: PRESENT: appropriate affect, normal mood. ABSENT: homicidal ideation, suicidal ideation Skin exam: PRESENT: dry, intact, warm. ABSENT: cyanosis, rash Murmur grade: 4 Results Laboratory Results: 11/22/19 05:40 11/22/19 05:40 11/20/19 11/20/19 11/20/19 11:52 18:34 18:34 Creatine Kinase < 20 L CK-MB (CK-2) 0.27 Troponin I 0.043 0.043 NT-Pro-B Natriuret Pep [id number] H 11/20/19 11/20/19 11/21/19 23:41 23:41 05:52 Creatine Kinase < 20 L < 20 L CK-MB (CK-2) < 0.22 Troponin I 0.035 NT-Pro-B Natriuret Pep 11/21/19 05:52 Creatine Kinase CK-MB (CK-2) < 0.22 Troponin I 0.034 NT-Pro-B Natriuret Pep Impressions: Chest X-Ray 11/20/19 11:44 IMPRESSION: NO ACUTE RADIOGRAPHIC FINDING IN THE CHEST. Assessment & Plan - Diagnosis (1) Acute on chronic combined systolic (congestive) and diastolic (congestive) heart failure Is this a current diagnosis for this admission?: Yes (2) Valvular heart disease Is this a current diagnosis for this admission?: Yes (3) UTI (urinary tract infection) Qualifiers: Urinary tract infection type: site unspecified Hematuria presence: without hematuria Qualified Code(s): N39.0 - Urinary tract infection, site not specified Is this a current diagnosis for this admission?: Yes (4) Essential hypertension Is this a current diagnosis for this admission?: Yes (5) CAD (coronary artery disease) Qualifiers: Coronary Disease-Associated Artery/Lesion type: [place] artery [place] vs. transplanted heart: [place] heart Associated angina: with unstable angina Qualified Code(s): I25.110 - Atherosclerotic heart disease of [place] coronary artery with unstable angina pectoris Is this a current diagnosis for this admission?: Yes (6) Hyperlipidemia Qualifiers: Hyperlipidemia type: unspecified Qualified Code(s): E78.5 - Hyperlipidemia, unspecified Is this a current diagnosis for this admission?: Yes (7) COPD (chronic obstructive pulmonary disease) Qualifiers: COPD type: unspecified COPD Qualified Code(s): J44.9 - Chronic obstructive pulmonary disease, unspecified Is this a current diagnosis for this admission?: Yes - Time Time Spent with patient: 25-34 minutes Level of Care: IMCU Medications reviewed and adjusted accordingly: Yes Anticipated discharge: Home with Homehealth Anticipated DC Timeframe: within 72 hours - Inpatient Certification Based on my medical assessment, after consideration of the patient's comorbidities, presenting symptoms, or acuity I expect that the services needed warrant INPATIENT care.: Yes I certify that my determination is in accordance with my understanding of Medicare's requirements for reasonable and necessary INPATIENT services [42 CFR 412.3e].: Yes Medical Necessity: Significant Comorbidiites Make Outpatient Treatment Too Risky, Need Close Monitoring Due to Risk of Patient Decompensation, Need For Continuous Telemetry Monitoring, Need for IV Antibiotics, Risk of Complication if Not Cared For in Hospital, Risk of Diagnosis Which Will Require Inpatient Eval/Care/Monitoring Post Hospital Care: D/C Dialysis Technician Documentation - Plan Summary Plan Summary: See attending physician orders for details about care plan.
[2019-11-25] MEDS: ATORVASTATIN CALCIUM 20 MG TABLET PO SCH (23:08)
[2019-11-25] MEDS: DONEPEZIL HCL 5 MG TABLET PO SCH (23:08)
[2019-11-25] MEDS: FAMOTIDINE 20 MG TABLET PO SCH (23:08)
[2019-11-25] MEDS: SERTRALINE HCL 50 MG TABLET PO SCH (23:08)
[2019-11-26] MEDS: HEPARIN SOD (PORCINE) 5,000 UNIT/ML 1 ML VIAL SUBCUT SCH ×3 (06:28→21:46)
[2019-11-26] MEDS: SUCRALFATE 1 GM TABLET PO SCH ×4 (09:33→21:36)
[2019-11-26] MEDS: CARVEDILOL 12.5 MG TABLET PO SCH ×2 (09:33→21:37)
[2019-11-26] MEDS: POTASSIUM CHLORIDE 20 MEQ PACKET PO SCH (09:34)
[2019-11-26] MEDS: FUROSEMIDE INJ/PF 40 MG/4 ML SDV IV SCH ×2 (09:34→21:38)
[2019-11-26] MEDS: PSYLLIUM SEED-SF 5.85 GM PACKET PO SCH ×2 (09:34→17:25)
[2019-11-26] MEDS: FERROUS SULFATE 325 MG TABLET PO SCH (09:34)
[2019-11-26] MEDS: POLYETHYLENE GLYCOL 3350 POWDER 17 GM/1 PACKET PO SCH (09:34)
[2019-11-26] MEDS: SACUBITRIL/VALSARTAN 49 MG/51 MG TABLET PO SCH ×2 (09:34→21:44)
[2019-11-26] MEDS: ACETAMINOPHEN 325 MG TABLET PO PRN ×2 (09:35→21:44)
[2019-11-26] MEDS: PRIMIDONE 50 MG TABLET PO SCH ×3 (09:35→17:25)
[2019-11-26] MEDS: CARBAMAZEPINE 200 MG TABLET PO SCH ×2 (09:35→21:45)
--- NOTE | 2019-11-26 13:01 | PDOC PROGRESS REPORT ---
Subjective Progress Note for:: 11/26/19 Subjective:: No chest pain or difficulty with breathing. No fever or chills. No abdominal pain, nausea or vomiting. Oral intake remain fairly satisfactory. Reason For Visit: ACUTE DECOMPENSATED,HEART FAILURE Physical Exam Vital Signs: Temp Pulse Resp BP Pulse Ox 98.1 F 75 17 111/51 L 99 11/26/19 11:50 11/26/19 11:50 11/26/19 11:50 11/26/19 11:50 11/26/19 11:50 Intake & Output 11/25/19 11/26/19 11/27/19 06:59 06:59 06:59 Intake Total 387 470 Output Total 1600 1200 Balance -1213 -730 Weight 68.8 kg 68.9 kg Physical Exam: General appearance: PRESENT: no acute distress Head exam: PRESENT: atraumatic, normocephalic Eye exam: PRESENT: conjunctiva pink. ABSENT: pallor, sclera icterus Respiratory exam: PRESENT: clear to auscultation u[place]es, decreased breath sounds - at lung bases Cardiovascular exam: PRESENT: RRR, +S1, +S2, systolic murmur. ABSENT: diastolic murmur, rubs Murmur grade: 4 GI/Abdominal exam: PRESENT: normal bowel sounds, soft. ABSENT: distended, guarding, mass, organomegaly, rebound, tenderness Extremities exam: ABSENT: pedal edema Musculoskeletal exam: PRESENT: deformity - related to multiple joints involvement with arthritis, left upper extremity post mastectomy lymphedema. Neurological exam: PRESENT: alert, awake, oriented to person, oriented to place, oriented to time, oriented to situation, CN II-XII grossly intact. ABSENT: motor sensory deficit Psychiatric exam: PRESENT: appropriate affect, normal mood. ABSENT: homicidal ideation, suicidal ideation Skin exam: PRESENT: dry, intact, warm. ABSENT: cyanosis, rash Murmur grade: 4 Results Laboratory Results: 11/22/19 05:40 11/25/19 09:46 11/20/19 11/20/19 11/20/19 11:52 18:34 18:34 Creatine Kinase < 20 L CK-MB (CK-2) 0.27 Troponin I 0.043 0.043 NT-Pro-B Natriuret Pep [id number] H 11/20/19 11/20/19 11/21/19 23:41 23:41 05:52 Creatine Kinase < 20 L < 20 L CK-MB (CK-2) < 0.22 Troponin I 0.035 NT-Pro-B Natriuret Pep 11/21/19 11/25/19 05:52 09:46 Creatine Kinase CK-MB (CK-2) < 0.22 Troponin I 0.034 NT-Pro-B Natriuret Pep [id number] H Impressions: Chest X-Ray 11/20/19 11:44 IMPRESSION: NO ACUTE RADIOGRAPHIC FINDING IN THE CHEST. Assessment & Plan - Diagnosis (1) Acute on chronic combined systolic (congestive) and diastolic (congestive) heart failure Is this a current diagnosis for this admission?: Yes (2) Valvular heart disease Is this a current diagnosis for this admission?: Yes (3) UTI (urinary tract infection) Qualifiers: Urinary tract infection type: site unspecified Hematuria presence: without hematuria Qualified Code(s): N39.0 - Urinary tract infection, site not specified Is this a current diagnosis for this admission?: Yes (4) Essential hypertension Is this a current diagnosis for this admission?: Yes (5) CAD (coronary artery disease) Qualifiers: Coronary Disease-Associated Artery/Lesion type: [place] artery [place] vs. transplanted heart: [place] heart Associated angina: with unstable angina Qualified Code(s): I25.110 - Atherosclerotic heart disease of [place] coronary artery with unstable angina pectoris Is this a current diagnosis for this admission?: Yes (6) Hyperlipidemia Qualifiers: Hyperlipidemia type: unspecified Qualified Code(s): E78.5 - Hyperlipidemia, unspecified Is this a current diagnosis for this admission?: Yes (7) COPD (chronic obstructive pulmonary disease) Qualifiers: COPD type: unspecified COPD Qualified Code(s): J44.9 - Chronic obstructive pulmonary disease, unspecified Is this a current diagnosis for this admission?: Yes - Time Time Spent with patient: 25-34 minutes Level of Care: IMCU Medications reviewed and adjusted accordingly: Yes Anticipated discharge: Home with Homehealth Anticipated DC Timeframe: within 72 hours - Inpatient Certification Based on my medical assessment, after consideration of the patient's comorbidities, presenting symptoms, or acuity I expect that the services needed warrant INPATIENT care.: Yes I certify that my determination is in accordance with my understanding of Medicare's requirements for reasonable and necessary INPATIENT services [42 CFR 412.3e].: Yes Medical Necessity: Significant Comorbidiites Make Outpatient Treatment Too Risky, Need Close Monitoring Due to Risk of Patient Decompensation, Need For Continuous Telemetry Monitoring, Need for IV Antibiotics, Risk of Complication if Not Cared For in Hospital, Risk of Diagnosis Which Will Require Inpatient Eval/Care/Monitoring Post Hospital Care: D/C Non Morse Intercept Technician Documentation - Plan Summary Plan Summary: Continue current medication management. Obtain BMP, CBC with diff, and Mag level in AM.
[2019-11-26] MEDS: CEFTRIAXONE 1 GM/D5W RTU 1 GM/50 ML RTUPB IV SCH (17:25)
[2019-11-26] MEDS: DONEPEZIL HCL 5 MG TABLET PO SCH (21:36)
[2019-11-26] MEDS: FAMOTIDINE 20 MG TABLET PO SCH (21:37)
[2019-11-26] MEDS: SERTRALINE HCL 50 MG TABLET PO SCH (21:37)
[2019-11-26] MEDS: ATORVASTATIN CALCIUM 20 MG TABLET PO SCH (21:38)
[2019-11-27] MEDS: HEPARIN SOD (PORCINE) 5,000 UNIT/ML 1 ML VIAL SUBCUT SCH ×3 (06:06→21:32)
[2019-11-27 06:26] LABS: ABSOLUTE BASOPHILS # (AUTO) 0.1 10^3/uL (0.0-0.2); ABSOLUTE EOSINOPHILS # (AUTO) 0.4 10^3/uL (0.0-0.6); ABSOLUTE LYMPHOCYTES (AUTO) 1.1 10^3/uL (0.5-4.7); ABSOLUTE NEUT (AUTO) 8.7 10^3/uL (1.7-8.2); BASOPHILS % (AUTO) 0.5 % (0-2); EOSINOPHILS % (AUTO) 3.6 % (0-6); LYMPHOCYTES % (AUTO) 10.2 % (13-45); MEAN CORPUSCULAR HEMOGLOBIN 26.3 pg (27.0-33.4); MEAN CORPUSCULAR HGB CONC 32.3 g/dL (32.0-36.0); MEAN CORPUSCULAR VOLUME 82 fl (80-97); MONOCYTES % (AUTO) 8.5 % (3-13); PLATELET COUNT 312 10^3/uL (150-450); RED CELL DISTRIBUTION WIDTH 15.2 % (11.5-14.0); SEGMENTED NEUTROPHILS % (AUTO) 77.2 % (42-78); TOTAL CELLS COUNTED % (AUTO) 100 %; WHITE BLOOD COUNT 11.3 10^3/uL (4.0-10.5)
[2019-11-27 06:42] LABS: ANION GAP 7 (5-19); BLOOD UREA NITROGEN 22 mg/dL (7-20); CALCIUM 9.2 mg/dL (8.4-10.2); CARBON DIOXIDE 29 mmol/L (22-30); CHLORIDE 100 mmol/L (98-107); GLUCOSE 99 mg/dL (75-110); POTASSIUM 4.7 mmol/L (3.6-5.0)
[2019-11-27] MEDS: CARBAMAZEPINE 200 MG TABLET PO SCH ×2 (10:00→21:31)
[2019-11-27] MEDS: SACUBITRIL/VALSARTAN 49 MG/51 MG TABLET PO SCH ×2 (10:00→21:32)
[2019-11-27] MEDS: PRIMIDONE 50 MG TABLET PO SCH ×3 (10:00→17:19)
[2019-11-27] MEDS: SUCRALFATE 1 GM TABLET PO SCH ×3 (10:00→21:31)
[2019-11-27] MEDS: PSYLLIUM SEED-SF 5.85 GM PACKET PO SCH ×2 (10:01→17:20)
[2019-11-27] MEDS: CARVEDILOL 12.5 MG TABLET PO SCH ×2 (10:01→21:30)
[2019-11-27] MEDS: POTASSIUM CHLORIDE 20 MEQ PACKET PO SCH (10:01)
[2019-11-27] MEDS: POLYETHYLENE GLYCOL 3350 POWDER 17 GM/1 PACKET PO SCH (10:01)
[2019-11-27] MEDS: FERROUS SULFATE 325 MG TABLET PO SCH (10:02)
[2019-11-27] MEDS: FUROSEMIDE INJ/PF 40 MG/4 ML SDV IV SCH (10:02)
[2019-11-27] MEDS: ACETAMINOPHEN 325 MG TABLET PO PRN ×2 (11:22→21:32)
[2019-11-27] MEDS: CEFTRIAXONE 1 GM/D5W RTU 1 GM/50 ML RTUPB IV SCH (17:20)
[2019-11-27] MEDS: FAMOTIDINE 20 MG TABLET PO SCH (21:31)
[2019-11-27] MEDS: DONEPEZIL HCL 5 MG TABLET PO SCH (21:31)
[2019-11-27] MEDS: ATORVASTATIN CALCIUM 20 MG TABLET PO SCH (21:31)
[2019-11-27] MEDS: SERTRALINE HCL 50 MG TABLET PO SCH (21:32)
[2019-11-28] MEDS: HEPARIN SOD (PORCINE) 5,000 UNIT/ML 1 ML VIAL SUBCUT SCH ×3 (06:18→22:13)
[2019-11-28] MEDS: ACETAMINOPHEN 325 MG TABLET PO PRN ×3 (08:43→22:13)
[2019-11-28] MEDS: SUCRALFATE 1 GM TABLET PO SCH ×4 (08:44→22:13)
[2019-11-28] MEDS: CARVEDILOL 12.5 MG TABLET PO SCH ×2 (09:13→22:13)
[2019-11-28] MEDS: PRIMIDONE 50 MG TABLET PO SCH ×3 (09:13→17:05)
[2019-11-28] MEDS: FERROUS SULFATE 325 MG TABLET PO SCH (09:14)
[2019-11-28] MEDS: CARBAMAZEPINE 200 MG TABLET PO SCH ×2 (09:14→22:13)
[2019-11-28] MEDS: POTASSIUM CHLORIDE 20 MEQ PACKET PO SCH (09:14)
[2019-11-28] MEDS: POLYETHYLENE GLYCOL 3350 POWDER 17 GM/1 PACKET PO SCH (09:14)
[2019-11-28] MEDS: SACUBITRIL/VALSARTAN 49 MG/51 MG TABLET PO SCH ×2 (09:14→22:13)
[2019-11-28] MEDS: FUROSEMIDE 40 MG TABLET PO SCH (09:14)
[2019-11-28] MEDS: PSYLLIUM SEED-SF 5.85 GM PACKET PO SCH ×2 (09:14→17:05)
--- NOTE | 2019-11-28 15:33 | PDOC PROGRESS REPORT ---
Subjective Progress Note for:: 11/27/19 Subjective:: Patient denied any chest pain or difficulty with breathing. No fever or chills. No abdominal pain, nausea or vomiting. Oral intake remain a challenge. Reason For Visit: ACUTE DECOMPENSATED,HEART FAILURE Physical Exam Vital Signs: Temp Pulse Resp BP Pulse Ox 97.7 F 73 22 H 122/47 L 100 11/28/19 12:07 11/28/19 14:00 11/28/19 12:07 11/28/19 12:07 11/28/19 12:07 Intake & Output 11/27/19 11/28/19 11/29/19 06:59 06:59 06:59 Intake Total 680 Output Total 1160 Balance -480 Weight 67.7 kg 69.7 kg Physical Exam: General appearance: PRESENT: no acute distress Head exam: PRESENT: atraumatic, normocephalic Eye exam: PRESENT: conjunctiva pink. ABSENT: pallor, sclera icterus Respiratory exam: PRESENT: clear to auscultation ulysses Cardiovascular exam: PRESENT: RRR, +S1, +S2, systolic murmur. ABSENT: diastolic murmur, rubs Murmur grade: 4 GI/Abdominal exam: PRESENT: normal bowel sounds, soft. ABSENT: distended, guarding, mass, organomegaly, rebound, tenderness Extremities exam: ABSENT: pedal edema Musculoskeletal exam: PRESENT: deformity - related to multiple joints involvement with arthritis, left upper extremity post mastectomy lymphedema. Neurological exam: PRESENT: alert, awake, oriented to person, oriented to place, oriented to time, oriented to situation, CN II-XII grossly intact. ABSENT: motor sensory deficit Psychiatric exam: PRESENT: appropriate affect, normal mood. ABSENT: homicidal ideation, suicidal ideation Skin exam: PRESENT: dry, intact, warm. ABSENT: cyanosis, rash Murmur grade: 4 Results Laboratory Results: 11/27/19 05:48 11/27/19 05:48 11/20/19 11/20/19 11/20/19 11:52 18:34 18:34 Creatine Kinase < 20 L CK-MB (CK-2) 0.27 Troponin I 0.043 0.043 NT-Pro-B Natriuret Pep [id number] H 11/20/19 11/20/19 11/21/19 23:41 23:41 05:52 Creatine Kinase < 20 L < 20 L CK-MB (CK-2) < 0.22 Troponin I 0.035 NT-Pro-B Natriuret Pep 11/21/19 11/25/19 05:52 09:46 Creatine Kinase CK-MB (CK-2) < 0.22 Troponin I 0.034 NT-Pro-B Natriuret Pep [id number] H Impressions: Chest X-Ray 11/20/19 11:44 IMPRESSION: NO ACUTE RADIOGRAPHIC FINDING IN THE CHEST. Assessment & Plan - Diagnosis (1) Acute on chronic combined systolic (congestive) and diastolic (congestive) heart failure Is this a current diagnosis for this admission?: Yes (2) Valvular heart disease Is this a current diagnosis for this admission?: Yes (3) UTI (urinary tract infection) Qualifiers: Urinary tract infection type: site unspecified Hematuria presence: without hematuria Qualified Code(s): N39.0 - Urinary tract infection, site not specified Is this a current diagnosis for this admission?: Yes (4) Essential hypertension Is this a current diagnosis for this admission?: Yes (5) CAD (coronary artery disease) Qualifiers: Coronary Disease-Associated Artery/Lesion type: [place] artery [place] vs. transplanted heart: [place] heart Associated angina: with unstable angina Qualified Code(s): I25.110 - Atherosclerotic heart disease of [place] coronary artery with unstable angina pectoris Is this a current diagnosis for this admission?: Yes (6) Hyperlipidemia Qualifiers: Hyperlipidemia type: unspecified Qualified Code(s): E78.5 - Hyperlipidemia, unspecified Is this a current diagnosis for this admission?: Yes (7) COPD (chronic obstructive pulmonary disease) Qualifiers: COPD type: unspecified COPD Qualified Code(s): J44.9 - Chronic obstructive pulmonary disease, unspecified Is this a current diagnosis for this admission?: Yes - Time Time Spent with patient: 25-34 minutes Level of Care: IMCU Medications reviewed and adjusted accordingly: Yes Anticipated discharge: Home with Homehealth Anticipated DC Timeframe: within 72 hours - Inpatient Certification Based on my medical assessment, after consideration of the patient's comorbiditi es, presenting symptoms, or acuity I expect that the services needed warrant INPATIENT care.: Yes I certify that my determination is in accordance with my understanding of [facility]'s requirements for reasonable and necessary INPATIENT services [42 CFR 412.3e].: Yes Medical Necessity: Significant Comorbidiites Make Outpatient Treatment Too Risky, Need Close Monitoring Due to Risk of Patient Decompensation, Need For Continuous Telemetry Monitoring, Risk of Complication if Not Cared For in Hospital, Risk of Diagnosis Which Will Require Inpatient Eval/Care/Monitoring Post Hospital Care: D/C Magnetic Tape Winder Documentation - Plan Summary Plan Summary: D/C IV Furosemide. Start on Furosemide 40 mg po daily. Maintain on all other current medication management.
--- NOTE | 2019-11-28 15:38 | PDOC PROGRESS REPORT ---
Subjective Progress Note for:: 11/28/19 Subjective:: Patient denied any chest pain or difficulty with breathing. Nursing staff reported low grade fever earlier today with elevated WBC. Patient denied any chills or diaphoresis. No abdominal pain, nausea or vomiting. Oral intake remain poor. Reason For Visit: ACUTE DECOMPENSATED,HEART FAILURE Physical Exam Vital Signs: Temp Pulse Resp BP Pulse Ox 97.7 F 73 22 H 122/47 L 100 11/28/19 12:07 11/28/19 14:00 11/28/19 12:07 11/28/19 12:07 11/28/19 12:07 Intake & Output 11/27/19 11/28/19 11/29/19 06:59 06:59 06:59 Intake Total 680 Output Total 1160 Balance -480 Weight 67.7 kg 69.7 kg Physical Exam: General appearance: PRESENT: no acute distress Head exam: PRESENT: atraumatic, normocephalic Eye exam: PRESENT: conjunctiva pink. ABSENT: pallor, sclera icterus Respiratory exam: PRESENT: clear to auscultation ulysses, decreased breath sounds - at lung bases Cardiovascular exam: PRESENT: RRR, +S1, +S2, systolic murmur. ABSENT: diastolic murmur, rubs Murmur grade: 4 GI/Abdominal exam: PRESENT: normal bowel sounds, soft. ABSENT: distended, guarding, mass, organomegaly, rebound, tenderness Extremities exam: ABSENT: pedal edema Musculoskeletal exam: PRESENT: deformity - related to multiple joints invol vement with arthritis, left upper extremity post mastectomy lymphedema. Neurological exam: PRESENT: alert, awake, oriented to person, oriented to place, oriented to time, oriented to situation, CN II-XII grossly intact. ABSENT: motor sensory deficit Psychiatric exam: PRESENT: appropriate affect, normal mood. ABSENT: homicidal ideation, suicidal ideation Skin exam: PRESENT: dry, intact, warm. ABSENT: cyanosis, rash Murmur grade: 4 Results Laboratory Results: 11/27/19 05:48 11/27/19 05:48 11/20/19 11/20/19 11/20/19 11:52 18:34 18:34 Creatine Kinase < 20 L CK-MB (CK-2) 0.27 Troponin I 0.043 0.043 NT-Pro-B Natriuret Pep [id number] H 08/11/20/19 11/21/19 23:41 23:41 05:52 Creatine Kinase < 20 L < 20 L CK-MB (CK-2) < 0.22 Troponin I 0.035 NT-Pro-B Natriuret Pep 11/21/19 11/25/19 05:52 09:46 Creatine Kinase CK-MB (CK-2) < 0.22 Troponin I 0.034 NT-Pro-B Natriuret Pep [id number] H Impressions: Chest X-Ray 11/20/19 11:44 IMPRESSION: NO ACUTE RADIOGRAPHIC FINDING IN THE CHEST. Assessment & Plan - Diagnosis (1) Acute on chronic combined systolic (congestive) and diastolic (congestive) heart failure Is this a current diagnosis for this admission?: Yes Plan: Obtain NT-Pro BNP in AM. (2) Valvular heart disease Is this a current diagnosis for this admission?: Yes (3) E. coli UTI (urinary tract infection) Is this a current diagnosis for this admission?: Yes Plan: Continue IV Ceftriaxone based on urine culture sensitivity report. Obtain CBC with diff in AM. (4) Essential hypertension Is this a current diagnosis for this admission?: Yes Plan: Obtain BMP in AM. (5) CAD (coronary artery disease) Qualifiers: Coronary Disease-Associated Artery/Lesion type: [place] artery [place] vs. transplanted heart: [place] heart Associated angina: with unstable angina Qualified Code(s): I25.110 - Atherosclerotic heart disease of [place] coronary artery with unstable angina pectoris Is this a current diagnosis for this admission?: Yes (6) Hyperlipidemia Qualifiers: Hyperlipidemia type: unspecified Qualified Code(s): E78.5 - Hyperlipidemia, unspecified Is this a current diagnosis for this admission?: Yes (7) COPD (chronic obstructive pulmonary disease) Qualifiers: COPD type: unspecified COPD Qualified Code(s): J44.9 - Chronic obstructive pulmonary disease, unspecified Is this a current diagnosis for this admission?: Yes - Time Time Spent with patient: 25-34 minutes Level of Care: IMCU Medications reviewed and adjusted accordingly: Yes Anticipated discharge: Home with Homehealth Anticipated DC Timeframe: within 72 hours - Inpatient Certification Based on my medical assessment, after consideration of the patient's comorbidities, presenting symptoms, or acuity I expect that the services needed warrant INPATIENT care.: Yes I certify that my determination is in accordance with my understanding of Medicare's requirements for reasonable and necessary INPATIENT services [42 CFR 412.3e].: Yes Medical Necessity: Significant Comorbidiites Make Outpatient Treatment Too Risky, Need Close Monitoring Due to Risk of Patient Decompensation, Need For C ontinuous Telemetry Monitoring, Need for IV Antibiotics, Risk of Complication if Not Cared For in Hospital, Risk of Diagnosis Which Will Require Inpatient Eval/Care/Monitoring Post Hospital Care: D/C Library Helper Documentation - Plan Summary Plan Summary: See attending physician orders for details about care plan.
[2019-11-28] MEDS: CEFTRIAXONE 1 GM/D5W RTU 1 GM/50 ML RTUPB IV SCH (17:07)
[2019-11-28] MEDS: ATORVASTATIN CALCIUM 20 MG TABLET PO SCH (22:13)
[2019-11-28] MEDS: SERTRALINE HCL 50 MG TABLET PO SCH (22:13)
[2019-11-28] MEDS: FAMOTIDINE 20 MG TABLET PO SCH (22:13)
[2019-11-28] MEDS: DONEPEZIL HCL 5 MG TABLET PO SCH (22:13)
[2019-11-29 05:34] LABS: ABSOLUTE BASOPHILS # (AUTO) 0.1 10^3/uL (0.0-0.2); ABSOLUTE EOSINOPHILS # (AUTO) 0.4 10^3/uL (0.0-0.6); ABSOLUTE LYMPHOCYTES (AUTO) 1.1 10^3/uL (0.5-4.7); ABSOLUTE MONOCYTES (AUTO) 1.3 10^3/uL (0.1-1.4); ABSOLUTE NEUT (AUTO) 9.7 10^3/uL (1.7-8.2); BASOPHILS % (AUTO) 0.8 % (0-2); HEMATOCRIT 30.3 % (36.0-47.0); HEMOGLOBIN 9.7 g/dL (12.0-15.5); LYMPHOCYTES % (AUTO) 8.5 % (13-45); MEAN CORPUSCULAR HEMOGLOBIN 26.2 pg (27.0-33.4); MEAN CORPUSCULAR HGB CONC 32.1 g/dL (32.0-36.0); MEAN CORPUSCULAR VOLUME 82 fl (80-97); MONOCYTES % (AUTO) 10.5 % (3-13); PLATELET COUNT 276 10^3/uL (150-450); RED BLOOD COUNT 3.71 10^6/uL (3.72-5.28); RED CELL DISTRIBUTION WIDTH 15.2 % (11.5-14.0); SEGMENTED NEUTROPHILS % (AUTO) 77.2 % (42-78); TOTAL CELLS COUNTED % (AUTO) 100 %; WHITE BLOOD COUNT 12.6 10^3/uL (4.0-10.5)
[2019-11-29 05:42] LABS: ANION GAP 10 (5-19); BLOOD UREA NITROGEN 32 mg/dL (7-20); CALCIUM 9.4 mg/dL (8.4-10.2); CARBON DIOXIDE 26 mmol/L (22-30); CHLORIDE 99 mmol/L (98-107); GLUCOSE 111 mg/dL (75-110); POTASSIUM 5.9 mmol/L (3.6-5.0)
[2019-11-29] MEDS: HEPARIN SOD (PORCINE) 5,000 UNIT/ML 1 ML VIAL SUBCUT SCH ×3 (06:10→21:50)
[2019-11-29] MEDS: ACETAMINOPHEN 325 MG TABLET PO PRN ×2 (08:46→15:44)
[2019-11-29] MEDS: SUCRALFATE 1 GM TABLET PO SCH ×4 (08:46→21:50)
[2019-11-29] MEDS: CARVEDILOL 12.5 MG TABLET PO SCH ×2 (09:38→21:50)
[2019-11-29] MEDS: SACUBITRIL/VALSARTAN 49 MG/51 MG TABLET PO SCH ×2 (09:38→21:50)
[2019-11-29] MEDS: PSYLLIUM SEED-SF 5.85 GM PACKET PO SCH ×2 (09:38→17:12)
[2019-11-29] MEDS: PRIMIDONE 50 MG TABLET PO SCH ×3 (09:39→17:12)
[2019-11-29] MEDS: POTASSIUM CHLORIDE 20 MEQ PACKET PO SCH (09:39)
[2019-11-29] MEDS: FERROUS SULFATE 325 MG TABLET PO SCH (09:39)
[2019-11-29] MEDS: POLYETHYLENE GLYCOL 3350 POWDER 17 GM/1 PACKET PO SCH (09:39)
[2019-11-29] MEDS: FUROSEMIDE 40 MG TABLET PO SCH (09:39)
[2019-11-29] MEDS: CARBAMAZEPINE 200 MG TABLET PO SCH ×2 (09:39→21:50)
[2019-11-29] MEDS: CEFTRIAXONE 1 GM/D5W RTU 1 GM/50 ML RTUPB IV SCH (17:12)
--- NOTE | 2019-11-29 18:22 | PDOC PROGRESS REPORT ---
Subjective Progress Note for:: 11/29/19 Subjective:: Patient denied any chest pain or difficulty with breathing. No reported fever or chills. No abdominal pain, nausea or vomiting. Oral intake improving. Reason For Visit: ACUTE DECOMPENSATED,HEART FAILURE Physical Exam Vital Signs: Temp Pulse Resp BP Pulse Ox 97.7 F 71 22 H 99/49 L 98 11/29/19 11:47 11/29/19 14:00 11/29/19 11:47 11/29/19 11:47 11/29/19 11:47 Intake & Output 11/28/19 11/29/19 11/30/19 06:59 06:59 06:59 Intake Total 50 530 240 Output Total 0 Balance 50 530 240 Weight 69.7 kg 69.3 kg 69.3 kg Physical Exam: General appearance: PRESENT: no acute distress Head exam: PRESENT: atraumatic, normocephalic Eye exam: PRESENT: conjunctiva pink. ABSENT: pallor, sclera icterus Respiratory exam: PRESENT: clear to auscultation ulysses, decreased breath sounds - at lung bases Cardiovascular exam: PRESENT: RRR, +S1, +S2, systolic murmur. ABSENT: diastolic murmur, rubs Murmur grade: 4 GI/Abdominal exam: PRESENT: normal bowel sounds, soft. ABSENT: distended, guarding, mass, organomegaly, rebound, tenderness Extremities exam: ABSENT: pedal edema Musculoskeletal exam: PRESENT: deformity - related to multiple joints involvement with arthritis, left upper extremity post mastectomy lymphedema. Neurological exam: PRESENT: alert, awake, oriented to person, oriented to place, oriented to time, oriented to situation, CN II-XII grossly intact. ABSENT: motor sensory deficit Psychiatric exam: PRESENT: appropriate affect, normal mood. ABSENT: homicidal ideation, suicidal ideation Skin exam: PRESENT: dry, intact, warm. ABSENT: cyanosis, rash Murmur grade: 4 Results Laboratory Results: 11/29/19 04:55 11/29/19 04:55 11/29/19 11/29/19 04:55 04:55 WBC 12.6 H RBC 3.71 L Hgb 9.7 L Hct 30.3 L MCV 82 MCH 26.2 L MCHC 32.1 RDW 15.2 H Plt Count 276 Seg Neutrophils % 77.2 Sodium 135.2 L Potassium 5.9 H Chloride 99 Carbon Dioxide 26 Anion Gap 10 BUN 32 H Creatinine 1.09 Est GFR ( Amer) 58 L Glucose 111 H Calcium 9.4 11/20/19 11/20/19 11/20/19 11:52 18:34 18:34 Creatine Kinase < 20 L CK-MB (CK-2) 0.27 Troponin I 0.043 0.043 NT-Pro-B Natriuret Pep [id number] H 11/20/19 11/20/19 11/21/19 23:41 23:41 05:52 Creatine Kinase < 20 L < 20 L CK-MB (CK-2) < 0.22 Troponin I 0.035 NT-Pro-B Natriuret Pep 11/21/19 11/25/19 11/29/19 05:52 09:46 04:55 Creatine Kinase CK-MB (CK-2) < 0.22 Troponin I 0.034 NT-Pro-B Natriuret Pep 91280 H 82640 H Impressions: Chest X-Ray 11/20/19 11:44 IMPRESSION: NO ACUTE RADIOGRAPHIC FINDING IN THE CHEST. Assessment & Plan - Diagnosis (1) Acute on chronic combined systolic (congestive) and diastolic (congestive) heart failure Is this a current diagnosis for this admission?: Yes (2) Valvular heart disease Is this a current diagnosis for this admission?: Yes (3) E. coli UTI (urinary tract infection) Is this a current diagnosis for this admission?: Yes (4) Essential hypertension Is this a current diagnosis for this admission?: Yes (5) CAD (coronary artery disease) Qualifiers: Coronary Disease-Associated Artery/Lesion type: [place] artery [place] vs. transplanted heart: [place] heart Associated angina: with unstable angina Qualified Code(s): I25.110 - Atherosclerotic heart disease of [place] coronary artery with unstable angina pectoris Is this a current diagnosis for this admission?: Yes (6) Hyperlipidemia Qualifiers: Hyperlipidemia type: unspecified Qualified Code(s): E78.5 - Hyperlipidemia, unspecified Is this a current diagnosis for this admission?: Yes (7) COPD (chronic obstructive pulmonary disease) Qualifiers: COPD type: unspecified COPD Qualified Code(s): J44.9 - Chronic obstructive pulmonary disease, unspecified Is this a current diagnosis for this admission?: Yes - Time Time Spent with patient: 25-34 minutes Level of Care: IMCU Medications reviewed and adjusted accordingly: Yes Anticipated discharge: Home with Homehealth Anticipated DC Timeframe: within 72 hours - Inpatient Certification Based on my medical assessment, after consideration of the patient's comorbidities, presenting symptoms, or acuity I expect that the services needed warrant INPATIENT care.: Yes I certify that my determination is in accordance with my understanding of Medicare's requirements for reasonable and necessary INPATIENT services [42 CFR 412.3e].: Yes Medical Necessity: Significant Comorbidiites Make Outpatient Treatment Too Risky, Need Close Monitoring Due to Risk of Patient Decompensation, Need For Continuous Telemetry Monitoring, Need for IV Antibiotics, Risk of Complication if Not Cared For in Hospital, Risk of Diagnosis Which Will Require Inpatient Eval/Care/Monitoring Post Hospital Care: D/C Lodge Officer Documentation - Plan Summary Plan Summary: D/C Potassium supplementation. Continue other current medication management. Obtain chest X ray. Obtain CBC with diff and BMP in am.
--- NOTE | 2019-11-29 19:08 | RADIOLOGY REPORT (SQ) ---
EXAM DESCRIPTION: CHEST SINGLE VIEW IMAGES COMPLETED DATE/TIME: 11/29/2019 6:42 pm REASON FOR STUDY: Worsening leukocytosis, pleural effusion COMPARISON: 11/20/2019. 3 to knee to 2019. FINDINGS: One-view chest AP portable upright. Lungs look hyperinflated but clear. Stable cardiomegaly. Hiatal hernia. Stable cardiomediastinal silhouette with prominence of the righ t main pulmonary artery. TECHNICAL DOCUMENTATION: JOB ID: [id number] Reading location - IP/workstation name: [email or web address]
[2019-11-29] MEDS: DONEPEZIL HCL 5 MG TABLET PO SCH (21:49)
[2019-11-29] MEDS: FAMOTIDINE 20 MG TABLET PO SCH (21:49)
[2019-11-29] MEDS: SERTRALINE HCL 50 MG TABLET PO SCH (21:50)
[2019-11-29] MEDS: ATORVASTATIN CALCIUM 20 MG TABLET PO SCH (21:50)
[2019-11-30] MEDS: HEPARIN SOD (PORCINE) 5,000 UNIT/ML 1 ML VIAL SUBCUT SCH ×3 (05:57→23:05)
[2019-11-30] MEDS: ACETAMINOPHEN 325 MG TABLET PO PRN ×3 (08:16→23:42)
[2019-11-30] MEDS: SUCRALFATE 1 GM TABLET PO SCH ×4 (08:18→23:06)
[2019-11-30] MEDS: POLYETHYLENE GLYCOL 3350 POWDER 17 GM/1 PACKET PO SCH (09:24)
[2019-11-30] MEDS: PSYLLIUM SEED-SF 5.85 GM PACKET PO SCH ×2 (09:24→17:20)
[2019-11-30] MEDS: PRIMIDONE 50 MG TABLET PO SCH ×3 (09:25→17:20)
[2019-11-30] MEDS: CARVEDILOL 12.5 MG TABLET PO SCH ×2 (09:25→23:06)
[2019-11-30] MEDS: FUROSEMIDE 40 MG TABLET PO SCH (09:25)
[2019-11-30] MEDS: FERROUS SULFATE 325 MG TABLET PO SCH (09:25)
[2019-11-30] MEDS: CARBAMAZEPINE 200 MG TABLET PO SCH ×2 (09:29→23:06)
[2019-11-30] MEDS: SACUBITRIL/VALSARTAN 49 MG/51 MG TABLET PO SCH ×2 (09:29→23:06)
--- NOTE | 2019-11-30 11:13 | PDOC PROGRESS REPORT ---
Subjective Progress Note for:: 11/30/19 Subjective:: No chest pain or difficulty with breathing. No reported fever or chills. No abdominal pain, nausea or vomiting. PO intake remain encouraging. Ambulate with nursing staff earlier today. Reason For Visit: ACUTE DECOMPENSATED,HEART FAILURE Physical Exam Vital Signs: Temp Pulse Resp BP Pulse Ox 98.7 F 82 20 126/54 H 100 11/30/19 07:48 11/30/19 07:48 11/30/19 07:48 11/30/19 07:48 11/30/19 07:48 Intake & Output 11/29/19 11/30/19 12/01/19 06:59 06:59 06:59 Intake Total 530 750 Output Total 0 350 Balance 530 400 Weight 69.3 kg 69 kg Physical Exam: General appearance: PRESENT: no acute distress Head exam: PRESENT: atraumatic, normocephalic Eye exam: PRESENT: conjunctiva pink. ABSENT: pallor, sclera icterus Respiratory exam: PRESENT: clear to auscultation ulysses Cardiovascular exam: PRESENT: RRR, +S1, +S2, systolic murmur. ABSENT: diastolic murmur, rubs Murmur grade: 4 GI/Abdominal exam: PRESENT: normal bowel sounds, soft. ABSENT: distended, guarding, mass, organomegaly, rebound, tenderness Extremities exam: ABSENT: pedal edema Musculoskeletal exam: PRESENT: deformity - related to multiple joints involvement with arthritis, left upper extremity post mastectomy lymphedema. Neurological exam: PRESENT: alert, awake, oriented to person, oriented to place, oriented to time, oriented to situation, CN II-XII grossly intact. ABSENT: motor sensory deficit Psychiatric exam: PRESENT: appropriate affect, normal mood. ABSENT: homicidal ideation, suicidal ideation Skin exam: PRESENT: dry, intact, warm. ABSENT: cyanosis, rash Murmur grade: 4 Results Laboratory Results: 11/29/19 04:55 11/29/19 04:55 11/20/19 11/20/19 11/20/19 11:52 18:34 18:34 Creatine Kinase < 20 L CK-MB (CK-2) 0.27 Troponin I 0.043 0.043 NT-Pro-B Natriuret Pep [id number] H 11/20/19 11/20/19 11/21/19 23:41 23:41 05:52 Creatine Kinase < 20 L < 20 L CK-MB (CK-2) < 0.22 Troponin I 0.035 NT-Pro-B Natriuret Pep 11/21/19 11/25/19 11/29/19 05:52 09:46 04:55 Creatine Kinase CK-MB (CK-2) < 0.22 Troponin I 0.034 NT-Pro-B Natriuret Pep 00314 H 25446 H Assessment & Plan - Diagnosis (1) Acute on chronic combined systolic (congestive) and diastolic (congestive) heart failure Is this a current diagnosis for this admission?: Yes (2) Valvular heart disease Is this a current diagnosis for this admission?: Yes (3) E. coli UTI (urinary tract infection) Is this a current diagnosis for this admission?: Yes (4) Essential hypertension Is this a current diagnosis for this admission?: Yes (5) CAD (coronary artery disease) Qualifiers: Coronary Disease-Associated Artery/Lesion type: [place] artery [place] vs. transplanted heart: [place] heart Associated angina: with unstable angina Qualified Code(s): I25.110 - Atherosclerotic heart disease of [place] coronary artery with unstable angina pectoris Is this a current diagnosis for this admission?: Yes (6) Hyperlipidemia Qualifiers: Hyperlipidemia type: unspecified Qualified Code(s): E78.5 - Hyperlipidemia, unspecified Is this a current diagnosis for this admission?: Yes (7) COPD (chronic obstructive pulmonary disease) Qualifiers: COPD type: unspecified COPD Qualified Code(s): J44.9 - Chronic obstructive pulmonary disease, unspecified Is this a current diagnosis for this admission?: Yes - Time Time Spent with patient: 25-34 minutes Level of Care: IMCU Medications reviewed and adjusted accordingly: Yes Anticipated discharge: Home with Homehealth Anticipated DC Timeframe: within 72 hours - Inpatient Certification Based on my medical assessment, after consideration of the patient's comorbidities, presenting symptoms, or acuity I expect that the services needed warrant INPATIENT care.: Yes I certify that my determination is in accordance with my understanding of Medicare's requirements for reasonable and necessary INPATIENT services [42 CFR 412.3e].: Yes Medical Necessity: Significant Comorbidiites Make Outpatient Treatment Too Risky, Need Close Monitoring Due to Risk of Patient Decompensation, Need For Continuous Telemetry Monitoring, Need for IV Antibiotics, Risk of Complication if Not Cared For in Hospital, Risk of Diagnosis Which Will Require Inpatient Eval/Care/Monitoring Post Hospital Care: D/C Chief Deputy Documentation - Plan Summary Plan Summary: Continue current medication management. Obtain CBC with diff and CMP in AM.
[2019-11-30] MEDS: CEFTRIAXONE 1 GM/D5W RTU 1 GM/50 ML RTUPB IV SCH (17:20)
[2019-11-30] MEDS: SERTRALINE HCL 50 MG TABLET PO SCH (23:05)
[2019-11-30] MEDS: FAMOTIDINE 20 MG TABLET PO SCH (23:05)
[2019-11-30] MEDS: ATORVASTATIN CALCIUM 20 MG TABLET PO SCH (23:05)
[2019-11-30] MEDS: DONEPEZIL HCL 5 MG TABLET PO SCH (23:06)
[2019-12-01] MEDS: LEVOFLOXACIN 500 MG/D5W RTU 500 MG/100 ML RTUPB IV SCH ×2 (02:10→22:37)
[2019-12-01] MEDS: HEPARIN SOD (PORCINE) 5,000 UNIT/ML 1 ML VIAL SUBCUT SCH ×3 (05:50→22:36)
[2019-12-01] MEDS: SUCRALFATE 1 GM TABLET PO SCH ×4 (08:43→22:37)
[2019-12-01] MEDS: ACETAMINOPHEN 325 MG TABLET PO PRN ×2 (08:43→18:14)
[2019-12-01] MEDS: FERROUS SULFATE 325 MG TABLET PO SCH (11:10)
[2019-12-01] MEDS: PRIMIDONE 50 MG TABLET PO SCH ×3 (11:10→17:13)
[2019-12-01] MEDS: FUROSEMIDE 40 MG TABLET PO SCH (11:10)
[2019-12-01] MEDS: SACUBITRIL/VALSARTAN 49 MG/51 MG TABLET PO SCH ×2 (11:11→22:37)
[2019-12-01] MEDS: CARVEDILOL 12.5 MG TABLET PO SCH ×2 (11:11→22:37)
[2019-12-01] MEDS: CARBAMAZEPINE 200 MG TABLET PO SCH ×2 (11:12→22:37)
[2019-12-01] MEDS: PSYLLIUM SEED-SF 5.85 GM PACKET PO SCH ×2 (11:12→17:13)
[2019-12-01] MEDS: POLYETHYLENE GLYCOL 3350 POWDER 17 GM/1 PACKET PO SCH (11:12)
--- NOTE | 2019-12-01 14:15 | PDOC PROGRESS REPORT ---
Subjective Progress Note for:: 12/01/19 Subjective:: Patient had episodes of elevated temperature overnight necessitating administration of Acetaminophen and addition of IV Levofloxacin to her antibiotic regimen as well s blood culture. No chest pain or difficulty with breathing. No abdominal pain, nausea or vomiting. Reason For Visit: ACUTE DECOMPENSATED,HEART FAILURE Physical Exam Vital Signs: Temp Pulse Resp BP Pulse Ox 97.5 F 82 24 H 137/62 H 100 12/01/19 07:40 12/01/19 07:40 12/01/19 07:40 12/01/19 07:40 12/01/19 07:40 Intake & Output 11/30/19 12/01/19 12/02/19 06:59 06:59 06:59 Intake Total 800 1130 Output Total 350 0 Balance 450 1130 Weight 69 kg 69 kg Physical Exam: General appearance: PRESENT: no acute distress Head exam: PRESENT: atraumatic, normocephalic Eye exam: PRESENT: conjunctiva pink. ABSENT: pallor, sclera icterus Respiratory exam: PRESENT: clear to auscultation ulysses Cardiovascular exam: PRESENT: RRR, +S1, +S2, systolic murmur. ABSENT: diastolic murmur, rubs Murmur grade: 4 GI/Abdominal exam: PRESENT: normal bowel sounds, soft. ABSENT: distended, guarding, mass, organomegaly, rebound, tenderness Extremities exam: ABSENT: pedal edema Musculoskeletal exam: PRESENT: deformity - related to multiple joints involvement with arthritis, left upper extremity post mastectomy lymphedema. Neurological exam: PRESENT: alert, awake, oriented to person, oriented to place, oriented to time, oriented to situation, CN II-XII grossly intact. ABSENT: motor sensory deficit Psychiatric exam: PRESENT: appropriate affect, normal mood. ABSENT: homicidal ideation, suicidal ideation Skin exam: PRESENT: dry, intact, warm. ABSENT: cyanosis, rash Murmur grade: 4 Results Laboratory Results: 11/29/19 04:55 11/29/19 04:55 11/20/19 11/20/19 11/20/19 11:52 18:34 18:34 Creatine Kinase < 20 L CK-MB (CK-2) 0.27 Troponin I 0.043 0.043 NT-Pro-B Natriuret Pep [id number] H 08/27/20 08/27/20 08/28/20 23:41 23:41 05:52 Creatine Kinase < 20 L < 20 L CK-MB (CK-2) < 0.22 Troponin I 0.035 NT-Pro-B Natriuret Pep 11/21/19 11/25/19 11/29/19 05:52 09:46 04:55 Creatine Kinase CK-MB (CK-2) < 0.22 Troponin I 0.034 NT-Pro-B Natriuret Pep 83628 H 80660 H Assessment & Plan - Diagnosis (1) Acute on chronic combined systolic (congestive) and diastolic (congestive) heart failure Is this a current diagnosis for this admission?: Yes (2) Valvular heart disease Is this a current diagnosis for this admission?: Yes (3) E. coli UTI (urinary tract infection) Is this a current diagnosis for this admission?: Yes (4) Essential hypertension Is this a current diagnosis for this admission?: Yes (5) CAD (coronary artery disease) Qualifiers: Coronary Disease-Associated Artery/Lesion type: [place] artery [place] vs. transplanted heart: [place] heart Associated angina: with unstable angina Qualified Code(s): I25.110 - Atherosclerotic heart disease of [place] coronary artery with unstable angina pectoris Is this a current diagnosis for this admission?: Yes (6) Hyperlipidemia Qualifiers: Hyperlipidemia type: unspecified Qualified Code(s): E78.5 - Hyperlipidemia, unspecified Is this a current diagnosis for this admission?: Yes (7) COPD (chronic obstructive pulmonary disease) Qualifiers: COPD type: unspecified COPD Qualified Code(s): J44.9 - Chronic obstructive pulmonary disease, unspecified Is this a current diagnosis for this admission?: Yes - Time Time Spent with patient: 25-34 minutes Level of Care: IMCU Anticipated discharge: Home with Homehealth Anticipated DC Timeframe: within 72 hours - Inpatient Certification Based on my medical assessment, after consideration of the patient's comorbidities, presenting symptoms, or acuity I expect that the services needed warrant INPATIENT care.: Yes I certify that my determination is in accordance with my understanding of Medicare's requirements for reasonable and necessary INPATIENT services [42 CFR 412.3e].: Yes Medical Necessity: Need Close Monitoring Due to Risk of Patient Decompensation, Need For IV Fluids, Need For Continuous Telemetry Monitoring, Need for IV Antibiotics, Risk of Complication if Not Cared For in Hospital, Risk of Diagnosis Which Will Require Inpatient Eval/Care/Monitoring Post Hospital Care: D/C Collar Folder Operator Documentation - Plan Summary Plan Summary: Follow up on culture findings. Continue IV Levofloxacin and Rocephin coverage. Maintain on all other current medication management.
[2019-12-01] MEDS: CEFTRIAXONE 1 GM/D5W RTU 1 GM/50 ML RTUPB IV SCH (17:14)
[2019-12-01] MEDS: DONEPEZIL HCL 5 MG TABLET PO SCH (22:37)
[2019-12-01] MEDS: FAMOTIDINE 20 MG TABLET PO SCH (22:37)
[2019-12-01] MEDS: SERTRALINE HCL 50 MG TABLET PO SCH (22:38)
[2019-12-01] MEDS: ATORVASTATIN CALCIUM 20 MG TABLET PO SCH (22:38)
[2019-12-02 05:11] LABS: ABSOLUTE EOSINOPHILS # (AUTO) 0.4 10^3/uL (0.0-0.6); ABSOLUTE NEUT (AUTO) 7.1 10^3/uL (1.7-8.2); BASOPHILS % (AUTO) 0.5 % (0-2); EOSINOPHILS % (AUTO) 4.2 % (0-6); HEMATOCRIT 25.9 % (36.0-47.0); HEMOGLOBIN 8.6 g/dL (12.0-15.5); LYMPHOCYTES % (AUTO) 10.6 % (13-45); MEAN CORPUSCULAR HEMOGLOBIN 26.8 pg (27.0-33.4); MEAN CORPUSCULAR HGB CONC 33.2 g/dL (32.0-36.0); MEAN CORPUSCULAR VOLUME 81 fl (80-97); MONOCYTES % (AUTO) 10.3 % (3-13); PLATELET COUNT 299 10^3/uL (150-450); RED BLOOD COUNT 3.21 10^6/uL (3.72-5.28); RED CELL DISTRIBUTION WIDTH 15.4 % (11.5-14.0); SEGMENTED NEUTROPHILS % (AUTO) 74.4 % (42-78); TOTAL CELLS COUNTED % (AUTO) 100 %; WHITE BLOOD COUNT 9.5 10^3/uL (4.0-10.5)
[2019-12-02 05:34] LABS: ALBUMIN 2.9 g/dL (3.5-5.0); ALKALINE PHOSPHATASE 154 U/L (38-126); ANION GAP 9 (5-19); ASPARTATE AMINO TRANSFERASE 22 U/L (14-36); BILIRUBIN,DIRECT 0.2 mg/dL (0.0-0.4); BILIRUBIN,TOTAL 0.2 mg/dL (0.2-1.3); BLOOD UREA NITROGEN 27 mg/dL (7-20); CALCIUM 9.1 mg/dL (8.4-10.2); CARBON DIOXIDE 25 mmol/L (22-30); CHLORIDE 102 mmol/L (98-107); GLUCOSE 108 mg/dL (75-110); POTASSIUM 4.5 mmol/L (3.6-5.0); TOTAL PROTEIN 5.8 g/dL (6.3-8.2)
[2019-12-02] MEDS: HEPARIN SOD (PORCINE) 5,000 UNIT/ML 1 ML VIAL SUBCUT SCH ×3 (05:46→22:23)
[2019-12-02] MEDS: SUCRALFATE 1 GM TABLET PO SCH ×4 (08:11→22:22)
[2019-12-02] MEDS: ACETAMINOPHEN 325 MG TABLET PO PRN ×2 (08:13→18:41)
[2019-12-02] MEDS: FUROSEMIDE 40 MG TABLET PO SCH (09:30)
[2019-12-02] MEDS: CARVEDILOL 12.5 MG TABLET PO SCH ×2 (09:30→22:22)
[2019-12-02] MEDS: FERROUS SULFATE 325 MG TABLET PO SCH (09:30)
[2019-12-02] MEDS: PRIMIDONE 50 MG TABLET PO SCH ×3 (09:30→17:20)
[2019-12-02] MEDS: PSYLLIUM SEED-SF 5.85 GM PACKET PO SCH ×2 (09:31→17:20)
[2019-12-02] MEDS: SACUBITRIL/VALSARTAN 49 MG/51 MG TABLET PO SCH ×2 (09:31→22:22)
[2019-12-02] MEDS: POLYETHYLENE GLYCOL 3350 POWDER 17 GM/1 PACKET PO SCH (09:31)
[2019-12-02] MEDS: CARBAMAZEPINE 200 MG TABLET PO SCH ×2 (09:31→22:22)
--- NOTE | 2019-12-02 12:07 | PDOC PROGRESS REPORT ---
Subjective Progress Note for:: 12/02/19 Subjective:: Patient denied any chest pain or difficulty with breathing. No fever or chills. No abdominal pain, nausea or vomiting. PO intake improving. Reason For Visit: ACUTE DECOMPENSATED,HEART FAILURE Physical Exam Vital Signs: Temp Pulse Resp BP Pulse Ox 97.4 F 83 18 139/64 H 98 12/02/19 10:00 12/02/19 07:44 12/02/19 07:44 12/02/19 07:44 12/02/19 07:44 Intake & Output 12/01/19 12/02/19 12/03/19 06:59 06:59 06:59 Intake Total 1230 1157 Output Total 0 Balance 1230 1157 Weight 69 kg 69 kg Physical Exam: General appearance: PRESENT: no acute distress Head exam: PRESENT: atraumatic, normocephalic Eye exam: PRESENT: conjunctiva pink. ABSENT: pallor, sclera icterus Respiratory exam: PRESENT: clear to auscultation ulysses Cardiovascular exam: PRESENT: RRR, +S1, +S2, systolic murmur. ABSENT: diastolic murmur, rubs Murmur grade: 4 GI/Abdominal exam: PRESENT: normal bowel sounds, soft. ABSENT: distended, gua rding, mass, organomegaly, rebound, tenderness Extremities exam: ABSENT: pedal edema Musculoskeletal exam: PRESENT: deformity - related to multiple joints involvement with arthritis, left upper extremity post mastectomy lymphedema. Neurological exam: PRESENT: alert, awake, oriented to person, oriented to place, oriented to time, oriented to situation, CN II-XII grossly intact. ABSENT: motor sensory deficit Psychiatric exam: PRESENT: appropriate affect, normal mood. ABSENT: homicidal ideation, suicidal ideation Skin exam: PRESENT: dry, intact, warm. ABSENT: cyanosis, rash Murmur grade: 4 Results Laboratory Results: 12/02/19 04:40 12/02/19 04:40 12/02/19 12/02/19 04:40 04:40 WBC 9.5 RBC 3.21 L Hgb 8.6 L Hct 25.9 L MCV 81 MCH 26.8 L MCHC 33.2 RDW 15.4 H Plt Count 299 Seg Neutrophils % 74.4 Sodium 136.3 L Potassium 4.5 Chloride 102 Carbon Dioxide 25 Anion Gap 9 BUN 27 H Creatinine 1.14 Est GFR ( Amer) 55 L Glucose 108 Calcium 9.1 Total Bilirubin 0.2 AST 22 Alkaline Phosphatase 154 H Total Protein 5.8 L Albumin 2.9 L 11/20/19 11/20/19 11/20/19 11:52 18:34 18:34 Creatine Kinase < 20 L CK-MB (CK-2) 0.27 Troponin I 0.043 0.043 NT-Pro-B Natriuret Pep 39753 H 11/20/19 11/20/19 11/21/19 23:41 23:41 05:52 Creatine Kinase < 20 L < 20 L CK-MB (CK-2) < 0.22 Troponin I 0.035 NT-Pro-B Natriuret Pep 11/21/19 11/25/19 11/29/19 05:52 09:46 04:55 Creatine Kinase CK-MB (CK-2) < 0.22 Troponin I 0.034 NT-Pro-B Natriuret Pep 35741 H 34162 H Assessment & Plan - Diagnosis (1) Acute on chronic combined systolic (congestive) and diastolic (congestive) heart failure Is this a current diagnosis for this admission?: Yes (2) Valvular heart disease Is this a current diagnosis for this admission?: Yes (3) E. coli UTI (urinary tract infection) Is this a current diagnosis for this admission?: Yes (4) Essential hypertension Is this a current diagnosis for this admission?: Yes (5) CAD (coronary artery disease) Qualifiers: Coronary Disease-Associated Artery/Lesion type: [place] artery [place] vs. transplanted heart: [place] heart Associated angina: with unstable angina Qualified Code(s): I25.110 - Atherosclerotic heart disease of [place] coronary artery with unstable angina pectoris Is this a current diagnosis for this admission?: Yes (6) Hyperlipidemia Qualifiers: Hyperlipidemia type: unspecified Qualified Code(s): E78.5 - Hyperlipidemia, unspecified Is this a current diagnosis for this admission?: Yes (7) COPD (chronic obstructive pulmonary disease) Qualifiers: COPD type: unspecified COPD Qualified Code(s): J44.9 - Chronic obstructive pulmonary disease, unspecified Is this a current diagnosis for this admission?: Yes - Time Time Spent with patient: 25-34 minutes Level of Care: IMCU Medications reviewed and adjusted accordingly: Yes Anticipated discharge: Home with Homehealth Anticipated DC Timeframe: within 72 hours - Inpatient Certification Based on my medical assessment, after consideration of the patient's comorbidities, presenting symptoms, or acuity I expect that the services needed warrant INPATIENT care.: Yes I certify that my determination is in accordance with my understanding of Medicare's requirements for reasonable and necessary INPATIENT services [42 CFR 412.3e].: Yes Medical Necessity: Significant Comorbidiites Make Outpatient Treatment Too Risky, Need Close Monitoring Due to Risk of Patient Decompensation, Need For Continuous Telemetry Monitoring, Need for IV Antibiotics, Risk of Complication if Not Cared For in Hospital, Risk of Diagnosis Which Will Require Inpatient Eval/Care/Monitoring Post Hospital Care: D/C Debt Collector Documentation - Plan Summary Plan Summary: Continue IV Levofloxacin coverage. Blood culture no growth to date. PT evaluation and ambulation requested.
[2019-12-02] MEDS: LEVOFLOXACIN 500 MG/D5W RTU 500 MG/100 ML RTUPB IV SCH (22:22)
[2019-12-02] MEDS: ATORVASTATIN CALCIUM 20 MG TABLET PO SCH (22:22)
[2019-12-02] MEDS: FAMOTIDINE 20 MG TABLET PO SCH (22:22)
[2019-12-02] MEDS: SERTRALINE HCL 50 MG TABLET PO SCH (22:22)
[2019-12-02] MEDS: DONEPEZIL HCL 5 MG TABLET PO SCH (22:22)
[2019-12-03] MEDS: HEPARIN SOD (PORCINE) 5,000 UNIT/ML 1 ML VIAL SUBCUT SCH ×3 (05:57→21:07)
[2019-12-03] MEDS: SUCRALFATE 1 GM TABLET PO SCH ×4 (10:32→21:07)
[2019-12-03] MEDS: CARVEDILOL 12.5 MG TABLET PO SCH ×2 (10:33→21:07)
[2019-12-03] MEDS: FERROUS SULFATE 325 MG TABLET PO SCH (10:33)
[2019-12-03] MEDS: PRIMIDONE 50 MG TABLET PO SCH ×3 (10:34→18:00)
[2019-12-03] MEDS: SACUBITRIL/VALSARTAN 49 MG/51 MG TABLET PO SCH ×2 (10:34→21:09)
[2019-12-03] MEDS: FUROSEMIDE 40 MG TABLET PO SCH (10:34)
[2019-12-03] MEDS: PSYLLIUM SEED-SF 5.85 GM PACKET PO SCH (10:35)
[2019-12-03] MEDS: POLYETHYLENE GLYCOL 3350 POWDER 17 GM/1 PACKET PO SCH (10:35)
[2019-12-03] MEDS: CARBAMAZEPINE 200 MG TABLET PO SCH ×2 (10:35→21:09)
[2019-12-03] MEDS: LEVOFLOXACIN 500 MG TABLET PO SCH (15:04)
[2019-12-03] MEDS: ACETAMINOPHEN 325 MG TABLET PO PRN ×2 (15:05→21:11)
--- NOTE | 2019-12-03 18:47 | PDOC PROGRESS REPORT ---
Subjective Progress Note for:: 12/03/19 Subjective:: Patient denied any chest pain or difficulty with breathing. No fever or chills. No nausea, vomiting, or abdominal pain. Oral intake satisfactory. Reason For Visit: ACUTE DECOMPENSATED,HEART FAILURE Physical Exam Vital Signs: Temp Pulse Resp BP Pulse Ox 98.6 F 68 20 139/74 H 98 12/03/19 03:36 12/03/19 07:00 12/03/19 03:36 12/03/19 03:36 12/03/19 03:36 Intake & Output 12/02/19 12/03/19 12/04/19 06:59 06:59 06:59 Intake Total 1157 1057 Balance 1157 1057 Weight 69 kg 70.1 kg Physical Exam: General appearance: PRESENT: no acute distress Head exam: PRESENT: atraumatic, normocephalic Eye exam: PRESENT: conjunctiva pink. ABSENT: pallor, sclera icterus Respiratory exam: PRESENT: clear to auscultation ulysses Cardiovascular exam: PRESENT: RRR, +S1, +S2, systolic murmur. ABSENT: diastolic murmur, rubs Murmur grade: 4 GI/Abdominal exam: PRESENT: normal bowel sounds, soft. ABSENT: distended, guarding, mass, organomegaly, rebound, tenderness Extremities exam: ABSENT: pedal edema Musculoskeletal exam: PRESENT: deformity - related to multiple joints involvement with arthritis, left upper extremity post mastectomy lymphedema. Neurological exam: PRESENT: alert, awake, oriented to person, oriented to place, oriented to time, oriented to situation, CN II-XII grossly intact. ABSENT: motor sensory deficit Psychiatric exam: PRESENT: appropriate affect, normal mood. ABSENT: homicidal ideation, suicidal ideation Skin exam: PRESENT: dry, intact, warm. ABSENT: cyanosis, rash Murmur grade: 4 Results Laboratory Results: 12/02/19 04:40 12/02/19 04:40 11/20/19 11/20/19 11/20/19 11:52 18:34 18:34 Creatine Kinase < 20 L CK-MB (CK-2) 0.27 Troponin I 0.043 0.043 NT-Pro-B Natriuret Pep [id number] H 11/20/19 11/20/19 11/21/19 23:41 23:41 05:52 Creatine Kinase < 20 L < 20 L CK-MB (CK-2) < 0.22 Troponin I 0.035 NT-Pro-B Natriuret Pep 11/21/19 11/25/19 11/29/19 05:52 09:46 04:55 Creatine Kinase CK-MB (CK-2) < 0.22 Troponin I 0.034 NT-Pro-B Natriuret Pep 64963 H 11817 H Assessment & Plan - Diagnosis (1) Acute on chronic combined systolic (congestive) and diastolic (congestive) heart failure Is this a current diagnosis for this admission?: Yes (2) Valvular heart disease Is this a current diagnosis for this admission?: Yes (3) E. coli UTI (urinary tract infection) Is this a current diagnosis for this admission?: Yes (4) Essential hypertension Is this a current diagnosis for this admission?: Yes (5) CAD (coronary artery disease) Qualifiers: Coronary Disease-Associated Artery/Lesion type: [place] artery [place] vs. transplanted heart: [place] heart Associated angina: with unstable angina Qualified Code(s): I25.110 - Atherosclerotic heart disease of [place] coronary artery with unstable angina pectoris Is this a current diagnosis for this admission?: Yes (6) Hyperlipidemia Qualifiers: Hyperlipidemia type: unspecified Qualified Code(s): E78.5 - Hyperlipidemia, unspecified Is this a current diagnosis for this admission?: Yes (7) COPD (chronic obstructive pulmonary disease) Qualifiers: COPD type: unspecified COPD Qualified Code(s): J44.9 - Chronic obstructive pulmonary disease, unspecified Is this a current diagnosis for this admission?: Yes - Time Time Spent with patient: 25-34 minutes Level of Care: IMCU Medications reviewed and adjusted accordingly: Yes Anticipated discharge: Home with Homehealth Anticipated DC Timeframe: within 72 hours - Inpatient Certification Based on my medical assessment, after consideration of the patient's comorbidi ties, presenting symptoms, or acuity I expect that the services needed warrant INPATIENT care.: Yes I certify that my determination is in accordance with my understanding of [facility] [place]'s requirements for reasonable and necessary INPATIENT services [42 CFR 412.3e].: Yes Medical Necessity: Significant Comorbidiites Make Outpatient Treatment Too Risky, Need Close Monitoring Due to Risk of Patient Decompensation, Need For Continuous Telemetry Monitoring, Need for IV Antibiotics, Risk of Complication if Not Cared For in Hospital, Risk of Diagnosis Which Will Require Inpatient Eval/Care/Monitoring Post Hospital Care: D/C Pipeline Systems Operator Documentation - Plan Summary Plan Summary: D/C IV Levofloxacin. Start on Levofloxacin 500 mg po daily. Maintain on all other current medication management. Discussed with patient and daughter at bedside regarding discharge plan home with MECHANICAL APPLICATIONS ENGINEER services including PT.
[2019-12-03] MEDS: FAMOTIDINE 20 MG TABLET PO SCH (21:07)
[2019-12-03] MEDS: DONEPEZIL HCL 5 MG TABLET PO SCH (21:07)
[2019-12-03] MEDS: SERTRALINE HCL 50 MG TABLET PO SCH (21:07)
[2019-12-03] MEDS: ATORVASTATIN CALCIUM 20 MG TABLET PO SCH (21:07)
[2019-12-04] MEDS: HEPARIN SOD (PORCINE) 5,000 UNIT/ML 1 ML VIAL SUBCUT SCH ×3 (05:34→21:15)
[2019-12-04 06:28] LABS: ABSOLUTE BASOPHILS # (AUTO) 0.1 10^3/uL (0.0-0.2); ABSOLUTE EOSINOPHILS # (AUTO) 0.4 10^3/uL (0.0-0.6); ABSOLUTE MONOCYTES (AUTO) 0.8 10^3/uL (0.1-1.4); ABSOLUTE NEUT (AUTO) 6.7 10^3/uL (1.7-8.2); BASOPHILS % (AUTO) 0.7 % (0-2); EOSINOPHILS % (AUTO) 4.1 % (0-6); HEMATOCRIT 26.5 % (36.0-47.0); HEMOGLOBIN 8.7 g/dL (12.0-15.5); LYMPHOCYTES % (AUTO) 11.2 % (13-45); MEAN CORPUSCULAR HEMOGLOBIN 26.3 pg (27.0-33.4); MEAN CORPUSCULAR HGB CONC 32.6 g/dL (32.0-36.0); MEAN CORPUSCULAR VOLUME 81 fl (80-97); MONOCYTES % (AUTO) 9.2 % (3-13); PLATELET COUNT 317 10^3/uL (150-450); RED BLOOD COUNT 3.29 10^6/uL (3.72-5.28); RED CELL DISTRIBUTION WIDTH 15.3 % (11.5-14.0); SEGMENTED NEUTROPHILS % (AUTO) 74.8 % (42-78); TOTAL CELLS COUNTED % (AUTO) 100 %; WHITE BLOOD COUNT 8.9 10^3/uL (4.0-10.5)
[2019-12-04 06:44] LABS: ANION GAP 7 (5-19); BLOOD UREA NITROGEN 20 mg/dL (7-20); CALCIUM 9.2 mg/dL (8.4-10.2); CARBON DIOXIDE 28 mmol/L (22-30); CHLORIDE 102 mmol/L (98-107); GLUCOSE 100 mg/dL (75-110); POTASSIUM 4.5 mmol/L (3.6-5.0)
[2019-12-04] MEDS: SUCRALFATE 1 GM TABLET PO SCH ×4 (07:37→21:14)
[2019-12-04] MEDS: PSYLLIUM SEED-SF 5.85 GM PACKET PO SCH ×3 (09:32→18:53)
[2019-12-04] MEDS: POLYETHYLENE GLYCOL 3350 POWDER 17 GM/1 PACKET PO SCH (09:33)
[2019-12-04] MEDS: SACUBITRIL/VALSARTAN 49 MG/51 MG TABLET PO SCH ×2 (09:59→21:14)
[2019-12-04] MEDS: LEVOFLOXACIN 500 MG TABLET PO SCH (09:59)
[2019-12-04] MEDS: CARVEDILOL 12.5 MG TABLET PO SCH ×2 (09:59→21:14)
[2019-12-04] MEDS: PRIMIDONE 50 MG TABLET PO SCH ×3 (09:59→18:53)
[2019-12-04] MEDS: FERROUS SULFATE 325 MG TABLET PO SCH (10:00)
[2019-12-04] MEDS: FUROSEMIDE 40 MG TABLET PO SCH (10:00)
[2019-12-04] MEDS: CARBAMAZEPINE 200 MG TABLET PO SCH ×2 (10:00→21:14)
[2019-12-04] MEDS: ACETAMINOPHEN 325 MG TABLET PO PRN ×2 (14:26→21:15)
--- NOTE | 2019-12-04 18:49 | PDOC PROGRESS REPORT ---
Subjective Progress Note for:: 12/04/19 Subjective:: Patient denied any chest pain or difficulty with breathing. Patient participated satisfactorily in PT session earlier today. No fever or chills. No nausea, vomiting, or abdominal pain. Reason For Visit: ACUTE DECOMPENSATED,HEART FAILURE Physical Exam Vital Signs: Temp Pulse Resp BP Pulse Ox 98.1 F 93 18 142/59 H 99 12/04/19 03:30 12/04/19 07:00 12/04/19 03:30 12/04/19 03:30 12/04/19 03:30 Intake & Output 12/03/19 12/04/19 12/05/19 06:59 06:59 06:59 Intake Total 1057 780 Balance 1057 780 Weight 70.1 kg 69.9 kg Physical Exam: General appearance: PRESENT: no acute distress Head exam: PRESENT: atraumatic, normocephalic Eye exam: PRESENT: conjunctiva pink. ABSENT: pallor, sclera icterus Respiratory exam: PRESENT: clear to auscultation ulysses Cardiovascular exam: PRESENT: RRR, +S1, +S2, systolic murmur. ABSENT: diastolic murmur, rubs Murmur grade: 4 GI/Abdominal exam: PRESENT: normal bowel sounds, soft. ABSENT: distended, guarding, mass, organomegaly, rebound, tenderness Extremities exam: ABSENT: pedal edema Musculoskeletal exam: PRESENT: deformity - related to multiple joints involvement with arthritis, left upper extremity post mastectomy lymphedema. Neurological exam: PRESENT: alert, awake, oriented to person, oriented to place, oriented to time, oriented to situation, CN II-XII grossly intact. ABSENT: motor sensory deficit Psychiatric exam: PRESENT: appropriate affect, normal mood. ABSENT: homicidal ideation, suicidal ideation Skin exam: PRESENT: dry, intact, warm. ABSENT: cyanosis, rash Murmur grade: 4 Results Laboratory Results: 12/04/19 05:34 12/04/19 05:34 12/04/19 12/04/19 05:34 05:34 WBC 8.9 RBC 3.29 L Hgb 8.7 L Hct 26.5 L MCV 81 MCH 26.3 L MCHC 32.6 RDW 15.3 H Plt Count 317 Seg Neutrophils % 74.8 Sodium 137.3 Potassium 4.5 Chloride 102 Carbon Dioxide 28 Anion Gap 7 BUN 20 Creatinine 1.06 Est GFR ( Amer) > 60 Glucose 100 Calcium 9.2 11/20/19 11/20/19 11/20/19 11:52 18:34 18:34 Creatine Kinase < 20 L CK-MB (CK-2) 0.27 Troponin I 0.043 0.043 NT-Pro-B Natriuret Pep 68793 H 11/20/19 11/20/19 11/21/19 23:41 23:41 05:52 Creatine Kinase < 20 L < 20 L CK-MB (CK-2) < 0.22 Troponin I 0.035 NT-Pro-B Natriuret Pep 11/21/19 11/25/19 11/29/19 05:52 09:46 04:55 Creatine Kinase CK-MB (CK-2) < 0.22 Troponin I 0.034 NT-Pro-B Natriuret Pep 51589 H 42949 H Assessment & Plan - Diagnosis (1) Acute on chronic combined systolic (congestive) and diastolic (congestive) heart failure Is this a current diagnosis for this admission?: Yes (2) Valvular heart disease Is this a current diagnosis for this admission?: Yes (3) E. coli UTI (urinary tract infection) Is this a current diagnosis for this admission?: Yes (4) Essential hypertension Is this a current diagnosis for this admission?: Yes (5) CAD (coronary artery disease) Qualifiers: Coronary Disease-Associated Artery/Lesion type: [place] artery [place] vs. transplanted heart: [place] heart Associated angina: with unstable angina Qualified Code(s): I25.110 - Atherosclerotic heart disease of [place] coronary artery with unstable angina pectoris Is this a current diagnosis for this admission?: Yes (6) Hyperlipidemia Qualifiers: Hyperlipidemia type: unspecified Qualified Code(s): E78.5 - Hyperlipidemia, unspecified Is this a current diagnosis for this admission?: Yes (7) COPD (chronic obstructive pulmonary disease) Qualifiers: COPD type: unspecified COPD Qualified Code(s): J44.9 - Chronic obstructive pulmonary disease, unspecified Is this a current diagnosis for this admission?: Yes - Time Time Spent with patient: 25-34 minutes Level of Care: IMCU Medications reviewed and adjusted accordingly: Yes Anticipated discharge: Home with Homehealth Anticipated DC Timeframe: within 24 hours - Inpatient Certification Based on my medical assessment, after consideration of the patient's comorbidities, presenting symptoms, or acuity I expect that the services needed warrant INPATIENT care.: Yes I certify that my determination is in accordance with my understanding of Medicare's requirements for reasonable and necessary INPATIENT services [42 CFR 412.3e].: Yes Medical Necessity: Significant Comorbidiites Make Outpatient Treatment Too Risky, Need Close Monitoring Due to Risk of Patient Decompensation, Need For Continuous Telemetry Monitoring, Risk of Complication if Not Cared For in Hospital, Risk of Diagnosis Which Will Require Inpatient Eval/Care/Monitoring Post Hospital Care: D/C Construction Skills Teacher Documentation - Plan Summary Plan Summary: Continue current medication management. Possible d/c home tomorrow with ABHINAV hagen discussed with patient and daughter at bedside during this visit.
[2019-12-04] MEDS: FAMOTIDINE 20 MG TABLET PO SCH (21:14)
[2019-12-04] MEDS: DONEPEZIL HCL 5 MG TABLET PO SCH (21:14)
[2019-12-04] MEDS: ATORVASTATIN CALCIUM 20 MG TABLET PO SCH (21:14)
[2019-12-04] MEDS: SERTRALINE HCL 50 MG TABLET PO SCH (21:14)
[2019-12-05] MEDS: HEPARIN SOD (PORCINE) 5,000 UNIT/ML 1 ML VIAL SUBCUT SCH ×2 (05:14→15:05)
[2019-12-05] MEDS: ACETAMINOPHEN 325 MG TABLET PO PRN (07:39)
[2019-12-05] MEDS: SUCRALFATE 1 GM TABLET PO SCH ×3 (08:43→15:05)
[2019-12-05] MEDS: FUROSEMIDE 40 MG TABLET PO SCH (09:51)
[2019-12-05] MEDS: CARVEDILOL 12.5 MG TABLET PO SCH (09:51)
[2019-12-05] MEDS: LEVOFLOXACIN 500 MG TABLET PO SCH (09:51)
[2019-12-05] MEDS: FERROUS SULFATE 325 MG TABLET PO SCH (09:51)
[2019-12-05] MEDS: PRIMIDONE 50 MG TABLET PO SCH ×2 (09:51→15:05)
[2019-12-05] MEDS: CARBAMAZEPINE 200 MG TABLET PO SCH (09:52)
[2019-12-05] MEDS: PSYLLIUM SEED-SF 5.85 GM PACKET PO SCH (09:52)
[2019-12-05] MEDS: POLYETHYLENE GLYCOL 3350 POWDER 17 GM/1 PACKET PO SCH (09:52)
[2019-12-05] MEDS: SACUBITRIL/VALSARTAN 49 MG/51 MG TABLET PO SCH (09:52)
[2019-12-05 16:07] VITALS: BP 150/70
--- NOTE | 2019-12-08 21:02 | PDOC DISCHARGE SUMMARY ---
Impression - Admit/DC Date/PCP Admission Date/Primary Care Provider: 11/20/19 13:53 MARISSA PHAM Discharge Date: 12/05/19 - Discharge Diagnosis (1) Acute on chronic combined systolic (congestive) and diastolic (congestive) heart failure Is this a current diagnosis for this admission?: Yes (2) Valvular heart disease Is this a current diagnosis for this admission?: Yes (3) E. coli UTI (urinary tract infection) Is this a current diagnosis for this admission?: Yes (4) Essential hypertension Is this a current diagnosis for this admission?: Yes (5) CAD (coronary artery disease) Is this a current diagnosis for this admission?: Yes (6) Hyperlipidemia Is this a current diagnosis for this admission?: Yes (7) COPD (chronic obstructive pulmonary disease) Is this a current diagnosis for this admission?: Yes - Assessment Summary: Patient was admitted for acute on chronic combined congestive heart failure based on her presenting symptoms and evaluation findings. She was treated with GDMT and IV Furosemide. Her hospitalization was further complicated by E.coli UTI along with her morbidities. She was adequately managed with urine culture and sensitivity directed IV antibiotic coverage. She was able to participate in physical therapy and she will be discharged home with home health services. She will be discharged home today and follow up in the office as instructed upon discharge. - Additional Information Resuscitation Status: Do Not Resuscitate Discharge Diet: Cardiac Discharge Activity: Activity As Tolerated, Balance Activity w/Rest, Slowly Increase Activity, Supervised Activity, Weigh Daily Referrals: MARISSA PHAM MD [Primary Care Provider] - 12/10/19 10:00 am Prescriptions: Sacubitril/Valsartan [Entresto 49 mg/51 mg Tablet] 1 tab PO Q12 #60 tablet Furosemide [Lasix 40 mg Tablet] 40 mg PO DAILY #30 tablet Levofloxacin [Levaquin 500 mg Tablet] 500 mg PO DAILY #5 tablet Home Medications: Carbamazepine [Tegretol 200 mg Tablet] 200 mg PO Q12 03/06/19 Carvedilol [Coreg 25 mg Tablet] 25 mg PO Q12 03/06/19 Donepezil HCl [Aricept 5 mg Tablet] 5 mg PO QHS 03/06/19 Ferrous Sulfate [Iron] 325 mg PO DAILY 03/06/19 Polyethylene Glycol 3350 [Miralax Powder 17 gm/Packet] 17 packet PO DAILY 03/06/19 Primidone [Mysoline 50 mg Tablet] 100 mg PO TID 03/06/19 Rosuvastatin Calcium [Crestor 10 mg Tablet] 10 mg PO QHS 03/06/19 Sertraline HCl [Zoloft 50 mg Tablet] 50 mg PO QHS 03/06/19 Sucralfate [Carafate 1 gm Tablet] 1 gm PO QID 03/06/19 Famotidine [Pepcid 20 mg Tablet] 40 mg PO QHS 11/20/19 Psyllium Husk (with Sugar) [Metamucil Packet] 3.4 gm PO BID 11/20/19 Furosemide [Lasix 40 mg Tablet] 40 mg PO DAILY #30 tablet 12/05/19 Levofloxacin [Levaquin 500 mg Tablet] 500 mg PO DAILY #5 tablet 12/05/19 Sacubitril/Valsartan [Entresto 49 mg/51 mg Tablet] 1 tab PO Q12 #60 tablet 12/05/19 History of Present Illiness History of Present Illness: BERNABE DORMAN is a 84 year old female, She came to the emergency room for evaluation of shortness of breath, she has a history of congestive heart failure, COPD, in the emergency room she was evaluated, the serum B type natruretic peptide was 45,300 consistent with CHF,She has paroxysmal nocturnal dyspnea, dyspnea on exertion. Hospital Course Hospital Course: Patient was admitted for acute on chronic combined congestive heart failure based on her presenting symptoms and evaluation findings. She was treated with GDMT and IV Furosemide. Her hospitalization was further complicated by E.coli UTI along with her morbidities. She was adequately managed with urine culture and sensitivity directed IV antibiotic coverage. She was able to participate in physical therapy and she will be discharged home with home health services. She will be discharged home today and follow up in the office as instructed upon discharge. Physical Exam Vital Signs: Temp Pulse Resp BP Pulse Ox 97.8 F 88 15 152/75 H 99 12/05/19 10:00 12/05/19 14:00 12/05/19 07:36 12/05/19 07:36 12/05/19 07:36 Intake & Output 12/04/19 12/05/19 12/06/19 06:59 06:59 06:59 Intake Total 780 150 Balance 780 150 Weight 69.9 kg 68.5 kg General appearance: PRESENT: no acute distress Head exam: PRESENT: atraumatic, normocephalic Eye exam: PRESENT: conjunctiva pink. ABSENT: pallor, sclera icterus Respiratory exam: PRESENT: clear to auscultation ulysses Cardiovascular exam: PRESENT: RRR, +S1, +S2, systolic murmur. ABSENT: diastolic murmur, rubs Murmur grade: 4 GI/Abdominal exam: PRESENT: normal bowel sounds, soft. ABSENT: distended, guarding, mass, organomegaly, rebound, tenderness Extremities exam: ABSENT: pedal edema Musculoskeletal exam: PRESENT: deformity - related to multiple joints involvement with arthritis, left upper extremity post mastectomy lymphedema. Neurological exam: PRESENT: alert, awake, oriented to person, oriented to place, oriented to time, oriented to situation, CN II-XII grossly intact. ABSENT: motor sensory deficit Psychiatric exam: PRESENT: appropriate affect, normal mood. ABSENT: homicidal ideation, suicidal ideation Skin exam: PRESENT: dry, intact, warm. ABSENT: cyanosis, rash Results Laboratory Results: WBC 8.9 10^3/uL (4.0-10.5) 12/04/19 05:34 RBC 3.29 10^6/uL (3.72-5.28) L 12/04/19 05:34 Hgb 8.7 g/dL (12.0-15.5) L 12/04/19 05:34 Hct 26.5 % (36.0-47.0) L 12/04/19 05:34 MCV 81 fl (80-97) 12/04/19 05:34 MCH 26.3 pg (27.0-33.4) L 12/04/19 05:34 MCHC 32.6 g/dL (32.0-36.0) 12/04/19 05:34 RDW 15.3 % (11.5-14.0) H 12/04/19 05:34 Plt Count 317 10^3/uL (150-450) 12/04/19 05:34 Lymph % (Auto) 11.2 % (13-45) L 12/04/19 05:34 [place] % (Auto) 9.2 % (3-13) 12/04/19 05:34 Eos % (Auto) 4.1 % (0-6) 12/04/19 05:34 Baso % (Auto) 0.7 % (0-2) 12/04/19 05:34 Reticulocyte # 0.075 10^6/uL (0.028-0.122) 11/23/19 16:05 Absolute Neuts (auto) 6.7 10^3/uL (1.7-8.2) 12/04/19 05:34 Absolute Lymphs (auto) 1.0 10^3/uL (0.5-4.7) 12/04/19 05:34 Absolute Monos (auto) 0.8 10^3/uL (0.1-1.4) 12/04/19 05:34 Absolute Eos (auto) 0.4 10^3/uL (0.0-0.6) 12/04/19 05:34 Absolute Basos (auto) 0.1 10^3/uL (0.0-0.2) 12/04/19 05:34 Seg Neutrophils % 74.8 % (42-78) 12/04/19 05:34 Retic Count (auto) 1.93 % (0.66-2.85) 11/23/19 16:05 PT 15.8 SEC (11.4-15.4) H 11/20/19 18:34 INR 1.24 11/20/19 18:34 APTT 45.4 SEC (23.5-35.8) H 11/20/19 18:34 Carbonic Acid 1.09 mmol/L (1.05-1.35) 11/20/19 19:10 HCO3/H2CO3 Ratio 22:1 11/20/19 19:10 ABG pH 7.45 (7.35-7.45) 11/20/19 19:10 ABG pCO2 36.2 mmHg (35-45) 11/20/19 19:10 ABG pO2 88.0 mmHg (80-100) 11/20/19 19:10 ABG HCO3 24.8 mmol/L (20-24) H 11/20/19 19:10 ABG Total CO2 25.9 mmol/L (21-25) H 11/20/19 19:10 ABG O2 Saturation 97.1 % (94-98) 11/20/19 19:10 ABG Base Excess 1.0 mmol/L 11/20/19 19:10 FiO2 21% 11/20/19 19:10 Sodium 137.3 mmol/L (137-145) 12/04/19 05:34 Potassium 4.5 mmol/L (3.6-5.0) 12/04/19 05:34 Chloride 102 mmol/L (98-107) 12/04/19 05:34 Carbon Dioxide 28 mmol/L (22-30) 12/04/19 05:34 Anion Gap 7 (5-19) 12/04/19 05:34 BUN 20 mg/dL (7-20) 12/04/19 05:34 Creatinine 1.06 mg/dL (0.52-1.25) 12/04/19 05:34 Est GFR ( Amer) > 60 (>60) 12/04/19 05:34 Est GFR (MDRD) Non-Af 49 (>60) L 12/04/19 05:34 Glucose 100 mg/dL (75-110) 12/04/19 05:34 Hemoglobin A1c % 5.8 % (4.7-6.0) 11/21/19 05:52 Calcium 9.2 mg/dL (8.4-10.2) 12/04/19 05:34 Magnesium 2.3 mg/dL (1.6-2.3) 11/27/19 05:48 Iron 40.4 ug/dL (37-170) 11/23/19 16:05 TIBC 225 ug/dL (250-450) L 11/23/19 16:05 % Saturation 18 % 11/23/19 16:05 Ferritin 221.00 ng/mL (11.1-264.0) 11/23/19 16:05 Total Bilirubin 0.2 mg/dL (0.2-1.3) 12/02/19 04:40 Direct Bilirubin 0.2 mg/dL (0.0-0.4) 12/02/19 04:40 Neonat Total Bilirubin Not Reportable 12/02/19 04:40 Neonat Direct Bilirubin Not Reportable 12/02/19 04:40 Neonat Indirect Bili Not Reportable 12/02/19 04:40 AST 22 U/L (14-36) 12/02/19 04:40 ALT 16 U/L (<35) 12/02/19 04:40 Alkaline Phosphatase 154 U/L (38-126) H 12/02/19 04:40 Creatine Kinase < 20 U/L (30-135) L 11/21/19 05:52 CK-MB (CK-2) < 0.22 ng/mL (<4.55) 11/21/19 05:52 Troponin I 0.034 ng/mL 11/21/19 05:52 NT-Pro-B Natriuret Pep 13056 pg/mL (<450) H 11/29/19 04:55 Total Protein 5.8 g/dL (6.3-8.2) L 12/02/19 04:40 Albumin 2.9 g/dL (3.5-5.0) L 12/02/19 04:40 Triglycerides 155 mg/dL (<150) H 11/21/19 05:52 Cholesterol 113.29 mg/dL (0-200) 11/21/19 05:52 LDL Cholesterol Direct 44 mg/dL (<100) 11/21/19 05:52 VLDL Cholesterol 31.0 mg/dL (10-31) 11/21/19 05:52 HDL Cholesterol 39 mg/dL (>40) L 11/21/19 05:52 Vitamin B12 697.0 pg/mL (239-931) 11/23/19 16:05 Folate 5.67 ng/mL (>2.76) 11/23/19 16:05 TSH 1.68 uIU/mL (0.47-4.68) 11/20/19 18:34 Free T4 1.28 ng/dL (0.78-2.19) 11/20/19 18:34 Urine Color YELLOW 11/21/19 06:25 Urine Appearance CLEAR 11/21/19 06:25 Urine pH 5.0 (5.0-9.0) 11/21/19 06:25 Ur Specific [place] 1.012 11/21/19 06:25 Urine Protein NEGATIVE mg/dL (NEGATIVE) 11/21/19 06:25 Urine Glucose (UA) NEGATIVE mg/dL (NEGATIVE) 11/21/19 06:25 Urine Ketones NEGATIVE mg/dL (NEGATIVE) 11/21/19 06:25 Urine Blood NEGATIVE (NEGATIVE) 11/21/19 06:25 Urine Nitrite NEGATIVE (NEGATIVE) 11/21/19 06:25 Urine Bilirubin NEGATIVE (NEGATIVE) 11/21/19 06:25 Urine Urobilinogen NEGATIVE mg/dL (<2.0) 11/21/19 06:25 Ur Leukocyte Esterase NEGATIVE (NEGATIVE) 11/21/19 06:25 Urine RBC NONE SEEN /HPF 11/21/19 06:25 Urine WBC 1-5 /HPF 11/21/19 06:25 Ur Squamous Epith Cells MODERATE /HPF 11/20/19 11:52 Urine Bacteria TRACE /HPF 11/21/19 06:25 Hyaline Casts 1-5 /LPF 11/20/19 11:52 Urine Ascorbic Acid 40 (NEGATIVE) H 11/21/19 06:25 Digoxin < 0.40 ng/mL (0.8-2.0) L 11/20/19 18:34 11/20/19 11/20/19 11/20/19 11:52 18:34 23:41 CK-MB (CK-2) 0.27 < 0.22 Troponin I 0.043 0.043 0.035 NT-Pro-B Natriuret Pep 16042 H 11/21/19 11/25/19 11/29/19 05:52 09:46 04:55 CK-MB (CK-2) < 0.22 Troponin I 0.034 NT-Pro-B Natriuret Pep 96474 H 12613 H Impressions: Chest X-Ray 11/20/19 11:44 IMPRESSION: NO ACUTE RADIOGRAPHIC FINDING IN THE CHEST. Plan Health Concerns: High readmission risk due to advance age and morbidities. Medication, fluid restriction, and dietary compliance. Plan of Treatment: Close community monitoring via home health agency input as well as chronic care management program to reduce readmission risk. Goals: Reduce readmission risk and maintain stability in cardiac function through outpatient management. Time Spent: Greater than 30 Minutes - I had extensive discussion with patient and daughter at bedside regarding post acute care management and follow up. Stroke Is this a Stroke Patient?: No Acute Heart Failure Is this a Heart Failure Patient?: Yes Documentation of LVEF assessment?: Yes LVEF: LVEF Less Than or Equal to 40% Anticoagulant Therapy: Yes Discharged on Evidence-Based Beta Blockers: Yes Discharged on ARNI?: Yes Discharged on ARB?: N/A-Discharged on ARNI Discharged on ACEI?: N/A Discharged on ARNI Follow-up Appointment scheduled within 7 days?: Yes
== END 2019-12-05 17:19 | disposition home health service (06) | DRG 292 ==
LOC: ER 11:39 → EH 13:53 → 3W 16:00
PROVIDERS: ADMIT Internal Medicine; ATTEND Internal Medicine Geriatric Medicine
DX: I11.0 Hypertensive heart disease with heart failure (principal); N39.0 Urinary tract infection, site not specified; I50.43 Acute on chronic combined systolic (congestive) and diastolic (congestive) heart failure; B96.20 Unspecified Escherichia coli [E. coli] as the cause of diseases classified elsewhere; I35.0 Nonrheumatic aortic (valve) stenosis; J44.9 Chronic obstructive pulmonary disease, unspecified; I25.10 Atherosclerotic heart disease of native coronary artery without angina pectoris; E78.00 Pure hypercholesterolemia, unspecified; K21.9 Gastro-esophageal reflux disease without esophagitis; I25.2 Old myocardial infarction; Z85.3 Personal history of malignant neoplasm of breast; Z85.118 Personal history of other malignant neoplasm of bronchus and lung; Z95.5 Presence of coronary angioplasty implant and graft
CPT/HCPCS: 36415; 36600; 71045; 80048; 80053; 80061; 80076; 80162; 81001; 82550; 82553; 82607; 82728; 82746; 82803; 83036; 83540; 83550; 83735; 83880; 84439; 84443; 84484; 85025; 85045; 85610; 85730; 87040; 87086; 87088; 87186; 93005; 93010; 93306; 96374; 99285; J0696; J1644; J1940; J1956; J3490

== ENCOUNTER 2019-12-27 08:55 | Inpatient (IN) | payer MEDICARE, OTHER ==
[2019-12-27] MEDS ORDERED: NORMAL SALINE 500 ML IV ONE (09:23)
--- NOTE | 2019-12-27 09:59 | RADIOLOGY REPORT (SQ) ---
EXAM DESCRIPTION: CHEST SINGLE VIEW IMAGES COMPLETED DATE/TIME: 12/27/2019 9:48 am REASON FOR STUDY: heart murmur COMPARISON: 11/29/2019 and 08/19/2014. EXAM PARAMETERS: NUMBER OF VIEWS: One view. TECHNIQUE: Single frontal radiographic view of the chest acquired. RADIATION DOSE: NA LIMITATIONS: None. FINDINGS: LUNGS AND PLEURA: No opacities, masses or pneumothorax. No pleural effusion. MEDIASTINUM AND HILAR STRUCTURES: Again seen is prominence of the right pulmonary artery. HEART AND VASCULAR STRUCTURES: Heart normal in size. Normal vasculature. BONES: No acute findings. HARDWARE: None in the chest. OTHER: No other significant finding. IMPRESSION: NO ACUTE RADIOGRAPHIC FINDING IN THE CHEST. TECHNICAL DOCUMENTATION: JOB ID: [id number] 2010 [employer]- All Rights Reserved Reading location - IP/workstation name: [email or web address]
--- NOTE | 2019-12-27 10:24 | RADIOLOGY REPORT (SQ) ---
EXAM DESCRIPTION: CT HEAD WITHOUT IMAGES COMPLETED DATE/TIME: 12/27/2019 10:13 am REASON FOR STUDY: slurred speech/dysphagia COMPARISON: 10/18/2018. TECHNIQUE: Axial images acquired through the brain without intravenous contrast. Images reviewed wi th bone, brain and subdural windows. Additional sagittal and coronal reconstructions were generated. Images stored on PACS. All CT scanners at this facility use dose modulation, iterative reconstruction, and/or weight based d osing when appropriate to reduce radiation dose to as low as reasonably achievable (ALARA). [facility]: Dose Right [facility]: CareDose [facility]: Dose Right [facility]: Teradose 4D [facility]: [facility] RADIATION DOSE: CT Rad equipment meets quality standard of care and radiation dose reduction techniq ues were employed. CTDIvol: 53.2 mGy. DLP: 964 mGy-cm.mGy. LIMITATIONS: None. FINDINGS: VENTRICLES: Prominent. CEREBRUM: No masses. No hemorrhage. No midline shift. Areas of low density in the white matter mos t likely due to chronic micro-vascular ischemic change. No evidence for acute infarction. CEREBELLUM: No masses. No hemorrhage. No alteration of density. No evidence for acute infarction. EXTRAAXIAL SPACES: Age-related involutional change. No fluid collections. No masses. ORBITS AND GLOBE: No intra- or extraconal masses. Normal contour of globe without masses. CALVARIUM: No fracture. PARANASAL SINUSES: No fluid or mucosal thickening. SOFT TISSUES: No mass or hematoma. OTHER: No other significant finding. IMPRESSION: CHRONIC CHANGES OF ATROPHY AND MICROVASCULAR ISCHEMIA. NO ACUTE PROCESS. EVIDENCE OF ACUTE STROKE: NO. TECHNICAL DOCUMENTATION: JOB ID: [id number] Quality ID # [id number]: Final reports with documentation of one or more dose reduction techniques (e.g., Au tomated exposure control, adjustment of the mA and/or kV according to patient size, use of iterative reconstruction technique) 2010 [employer]- All Rights Reserved Reading location - IP/workstation name: [email or web address]
--- NOTE | 2019-12-27 10:29 | RADIOLOGY REPORT (SQ) ---
EXAM DESCRIPTION: CT CERVICAL SPINE WITHOUT IMAGES COMPLETED DATE/TIME: 12/27/2019 10:13 am REASON FOR STUDY: slurred speech/dysphagia COMPARISON: 10/18/2018. TECHNIQUE: Axial images acquired through the cervical spine without intravenous contrast. Images re viewed with lung, soft tissue and bone windows. Reconstructed coronal and sagittal MPR images review ed. Images stored on PACS. All CT scanners at this facility use dose modulation, iterative reconstruction, and/or weight based d osing when appropriate to reduce radiation dose to as low as reasonably achievable (ALARA). [facility]: Dose Right [facility]: CareDose [facility]: Dose Right [facility]: Teradose 4D [facility]: [employer] RADIATION DOSE: CT Rad equipment meets quality standard of care and radiation dose reduction techniq ues were employed. CTDIvol: 14.5 mGy. DLP: 306 mGy-cm. mGy. LIMITATIONS: None. FINDINGS: ALIGNMENT: Anatomic. MINERALIZATION: Patchy osteopenia. VERTEBRAL BODIES: No fractures or dislocation. DISCS: Multilevel disc space narrowing with osteophytes. FACETS, LATERAL MASSES, POSTERIOR ELEMENTS: Facet arthropathy. No fractures. No dislocation. No ac clay findings. HARDWARE: None in the spine. VISUALIZED RIBS: No fractures. LUNG APICES AND SOFT TISSUES: Enlarged right lobe of the thyroid. OTHER: No other significant finding. IMPRESSION: CHRONIC DEGENERATIVE CHANGES. NO ACUTE FINDINGS. ENLARGED RIGHT LOBE OF THE THYROID. TECHNICAL DOCUMENTATION: JOB ID: [id number] Quality ID # [id number]: Final reports with documentation of one or more dose reduction techniques (e.g., Au tomated exposure control, adjustment of the mA and/or kV according to patient size, use of iterative reconstruction technique) 2010 [employer] All Rights Reserved Reading location - IP/workstation name: [email or web address]
[2019-12-27 10:37] LABS: ABSOLUTE BASOPHILS # (AUTO) 0.1 10^3/uL (0.0-0.2); ABSOLUTE EOSINOPHILS # (AUTO) 0.6 10^3/uL (0.0-0.6); ABSOLUTE LYMPHOCYTES (AUTO) 1.1 10^3/uL (0.5-4.7); ABSOLUTE MONOCYTES (AUTO) 1.1 10^3/uL (0.1-1.4); ABSOLUTE NEUT (AUTO) 12.6 10^3/uL (1.7-8.2); BASOPHILS % (AUTO) 0.7 % (0-2); EOSINOPHILS % (AUTO) 3.8 % (0-6); HEMATOCRIT 26.7 % (36.0-47.0); HEMOGLOBIN 8.6 g/dL (12.0-15.5); LYMPHOCYTES % (AUTO) 7.1 % (13-45); MEAN CORPUSCULAR HEMOGLOBIN 25.7 pg (27.0-33.4); MEAN CORPUSCULAR HGB CONC 32.1 g/dL (32.0-36.0); MEAN CORPUSCULAR VOLUME 80 fl (80-97); MONOCYTES % (AUTO) 6.8 % (3-13); PLATELET COUNT 423 10^3/uL (150-450); RED BLOOD COUNT 3.32 10^6/uL (3.72-5.28); RED CELL DISTRIBUTION WIDTH 16.9 % (11.5-14.0); SEGMENTED NEUTROPHILS % (AUTO) 81.6 % (42-78); TOTAL CELLS COUNTED % (AUTO) 100 %; WHITE BLOOD COUNT 15.5 10^3/uL (4.0-10.5)
[2019-12-27 10:50] LABS: APPEARANCE,URINE SLIGHTLY-CLOUDY; BILIRUBIN,URINE NEGATIVE (NEGATIVE); COLOR,URINE YELLOW; GLUCOSE, URINE NEGATIVE (NEGATIVE); KETONES,URINE TRACE mg/dL (NEGATIVE); LEUKOCYTE ESTERASE,URINE NEGATIVE (NEGATIVE); NITRITE,URINE NEGATIVE (NEGATIVE); PROTEIN,URINE 30 mg/dL (NEGATIVE); URINE SPECIFIC GRAVITY 1.018; UROBILINOGEN,URINE NEGATIVE mg/dL (<2.0)
[2019-12-27 10:54] LABS: ALBUMIN 2.6 g/dL (3.5-5.0); ALKALINE PHOSPHATASE 371 U/L (38-126); ANION GAP 16 (5-19); ASPARTATE AMINO TRANSFERASE 18 U/L (14-36); BILIRUBIN,DIRECT 0.4 mg/dL (0.0-0.4); BILIRUBIN,TOTAL 0.4 mg/dL (0.2-1.3); BLOOD UREA NITROGEN 35 mg/dL (7-20); CALCIUM 9.7 mg/dL (8.4-10.2); CARBON DIOXIDE 16 mmol/L (22-30); CHLORIDE 111 mmol/L (98-107); GLUCOSE 101 mg/dL (75-110); POTASSIUM 4.9 mmol/L (3.6-5.0); TOTAL PROTEIN 5.5 g/dL (6.3-8.2)
[2019-12-27 10:55] LABS: CREATINE KINASE < 20 U/L (30-135); INTERNATIONAL RATION (INR) 1.37
[2019-12-27 10:56] LABS: PARTIAL THROMBOPLASTIN TIME 44.7 SEC (23.5-35.8)
[2019-12-27 11:04] LABS: URINE AMPHETAMINES SCREEN NEGATIVE; URINE BENZODIAZEPINES SCREEN NEGATIVE; URINE COCAINE SCREEN NEGATIVE; URINE MARIJUANA (THC) SCREEN NEGATIVE; URINE METHADONE SCREEN NEGATIVE; URINE PHENCYCLIDINE SCREEN NEGATIVE
[2019-12-27 11:05] LABS: URINE BARBITURATES SCREEN UNCONFIRMED POSITIVE
[2019-12-27 11:05] LABS: NT PRO BNP 19800 pg/mL (<450)
[2019-12-27 11:06] LABS: TROPONIN I < 0.012 ng/mL
--- NOTE | 2019-12-27 12:16 | EKG REPORT ---
SEVERITY:- ABNORMAL ECG - SINUS RHYTHM RIGHT BUNDLE BRANCH BLOCK BORDERLINE ST DEPRESSION, LATERAL LEADS : Confirmed by: Scotty Augustin MD 27-Dec-2019 12:15:23
[2019-12-27] MEDS ORDERED: NORMAL SALINE 1000 ML 1,000 ML IV ONE (15:35)
--- NOTE | 2019-12-27 15:35 | ER Document Report ---
Entered by JUDITH HERMAN SCRIBE 12/27/19 0912 Acting as scribe for:CATRACHITA POSADAS MD ED General - General Stated Complaint: DIFFICULTY SWALLOWING/SLURRED SPEACH Primary Care Provider: MARISSA PHAM MD [Primary Care Provider] - Follow up as needed Mode of Arrival: Medic Information source: Patient, Relative - Son, Emergency Med Personnel Notes: This 84 year old female patient with a history significant for HTN, HLD, CAD, systolic and diastolic CHF, and COPD brought in by EMS from home presents to the ED today for evaluation of difficulty swallowing and altered mental status that started x5 days ago. According to EMS, patient is usually able to ambulate without difficulty and speak in complete sentences at baseline; however, family reports that they noticed a decline in mentation and activity since Sunday and states that she was not able to tolerate her PO medications this morning. Son at bedside reports that the patient was complaining of hip pain on Sunday so she was seen by her PCP and given a medication injection to her joint and was prescribed Tramadol. He also mentions concerns for medication changes including Entresto. Patient is alert and tries to communicate, but her speech is incomprehensible. She is able to answer some questions appropriately with 1-2 word sentences. She denies headache, visual disturbances, or any pain. Dr. Goldman is her PCP. TRAVEL OUTSIDE OF THE [place] IN LAST 30 DAYS: No - Related Data Allergies/Adverse Reactions: promethazine HCl [From Phenergan] Allergy (Verified 12/07/18 14:57) Past Medical History - General Information source: [facility] Records - Social History Smoking Status: Unknown if Ever Smoked Smoking Education Provided: No Lives with: Family Family History: Reviewed & Not Pertinent, Hypertension - Past Medical History Cardiac Medical History: Reports: Hx Congestive Heart Failure, Hx Coronary Artery Disease, Hx Heart Attack - unsure, Hx Hypercholesterolemia, Hx Hypertension, Hx Heart Murmur Pulmonary Medical History: Reports: Hx COPD, Hx Sleep Apnea Malignancy Medical History: Reports: Hx Breast Cancer - left breast, Hx Lung Cancer - right lung nodules GI Medical History: Reports: Hx Gastroesophageal Reflux Disease, Hx Hiatal Hernia, Hx Ulcer Musculoskeletal Medical History: Reports Hx Arthritis Past Surgical History: Reports: Hx Abdominal Surgery, Hx Breast Surgery - Left mastectomy for breast cancer, Hx Cardiac Catheterization, Hx Cardiac Surgery, Hx Section, Hx Coronary Artery Bypass Graft - stent, Hx Coronary Stent, Hx Hysterectomy, Hx Mastectomy - Left breast, Hx Orthopedic Surgery - right hip replacement - Immunizations Hx Diphtheria, Pertussis, Tetanus Vaccination: Yes Hx Pneumococcal Vaccination: 12/25/17 Review of Systems - Review of Systems Constitutional: No symptoms reported EENT: See HPI, Difficulty swallowing. denies: Blurred vision, Double vision Cardiovascular: No symptoms reported Respiratory: No symptoms reported Gastrointestinal: No symptoms reported Genitourinary: No symptoms reported Female Genitourinary: No symptoms reported Musculoskeletal: See HPI. denies: Muscle pain Skin: No symptoms reported Hematologic/Lymphatic: No symptoms reported Neurological/Psychological: See HPI, Speech impairment. denies: Headaches -: Yes All other systems reviewed and negative Physical Exam - Vital signs Vitals: Resp BP Pulse Ox 16 175/72 H 99 12/27/19 09:15 12/27/19 09:15 12/27/19 09:15 - General General appearance: Alert - Slurred speech, but able to speak in 1-2 word sentences - HEENT Head: Normocephalic, Atraumatic Eyes: Normal Pupils: PERRL - Respiratory Respiratory status: No respiratory distress Chest status: Nontender Breath sounds: Normal Chest palpation: Normal - Cardiovascular Rhythm: Regular Heart sounds: Normal auscultation Murmur: Yes Systolic murmur grade 1-6: 4 Friction rub: No Gallop: None auscultated - Abdominal Inspection: Normal Distension: No distension Bowel sounds: Normal Tenderness: Nontender - Abdomen soft Organomegaly: No organomegaly - Back Back: Normal, Nontender - Extremities General upper extremity: Normal inspection General lower extremity: Normal inspection. No: Edema - Neurological Cognition: Normal [place] Coma Scale Eye Opening: Spontaneous Félix Coma Scale Verbal: Incomprehensible Félix Coma Scale Motor: Obeys Commands [place] Coma Scale Total: 12 Speech: Dysarthria Additional motor exam normals: Equal vice chancellor - 1+ bilaterally, Pronator drift, Weakness - generalized Notes: No gag reflex - Psychological Associated symptoms: Normal affect, Normal mood - Skin Skin Temperature: Warm Skin Moisture: Dry Skin Color: Normal Course - Re-evaluation Re-evalutation: 12/27/19 15:39 Patient remains lethargic and arousable though. Patient does try to communicate with words that are incomprehensible at this time. Patient is has mouth breathing and her tongue is dry. - Vital Signs Vital signs: Temp Pulse Resp BP Pulse Ox 98.5 F 90 21 H 158/68 H 98 12/27/19 09:42 12/27/19 10:20 12/27/19 13:59 12/27/19 14:00 12/27/19 13:59 Vital signs as above with a blood pressure 158/68 and normal temperature and respiratory rate of 21. - Laboratory Result Diagrams: 12/27/19 10:00 12/27/19 10:00 Laboratory results interpreted by me: 12/27/19 12/27/19 12/27/19 10:00 10:00 10:00 WBC 15.5 H RBC 3.32 L Hgb 8.6 L Hct 26.7 L MCH 25.7 L RDW 16.9 H Lymph % (Auto) 7.1 L Absolute Neuts (auto) 12.6 H Seg Neutrophils % 81.6 H PT APTT Chloride 111 H Carbon Dioxide 16 L BUN 35 H Alkaline Phosphatase 371 H Creatine Kinase < 20 L NT-Pro-B Natriuret Pep 23620 H Total Protein 5.5 L Albumin 2.6 L Urine Protein Urine Ketones 12/27/19 12/27/19 10:00 10:05 WBC RBC Hgb Hct MCH RDW Lymph % (Auto) Absolute Neuts (auto) Seg Neutrophils % PT 17.0 H APTT 44.7 H Chloride Carbon Dioxide BUN Alkaline Phosphatase Creatine Kinase NT-Pro-B Natriuret Pep Total Protein Albumin Urine Protein 30 H Urine Ketones TRACE H Leukocytosis consistent with either inflammation infection or demargination or some kind of leukemoid reaction. Patient has a elevated BNP of 19,800. Trace ketones noted in the urine. Patient shows a prerenal state of the BUN of 35 and creatinine is within normal range. 12/27/19 15:41 - Diagnostic Test Radiology reviewed: Image reviewed, Reports reviewed Radiology results interpreted by me: 12/27/19 14:15 Chest X-Ray 12/27/19 09:22 IMPRESSION: NO ACUTE RADIOGRAPHIC FINDING IN THE CHEST. Head CT 12/27/19 09:25 IMPRESSION: CHRONIC CHANGES OF ATROPHY AND MICROVASCULAR ISCHEMIA. NO ACUTE PROCESS. EVIDENCE OF ACUTE STROKE: NO. Cervical Spine CT 12/27/19 09:27 IMPRESSION: CHRONIC DEGENERATIVE CHANGES. NO ACUTE FINDINGS. ENLARGED RIGHT LOBE OF THE THYROID. 12/27/19 15:39 Chest x-ray shows no acute radiographic finding. No infiltrate noted. Head CT shows chronic changes and atrophy and microvascular ischemia but no acute process of his acute stroke. Cervical spine shows chronic degenerative changes and no acute findings other than an enlarged right lobe of the thyroid. - EKG Interpretation by Me Additional EKG results interpreted by me: 12/27/19 15:37 Twelve-lead EKG shows normal sinus rhythm rate of 88 and right bundle branch block noted. And borderline ST depression in the lateral leads. MN interval borderline first-degree AV block. QRS interval prolonged with a right bundle branch block. And QT interval prolonged. Patient has a left axis deviation and reciprocal changes of right bundle branch block noted in the septal anterior leads - Consults Dr. Pham Time consulted: 15:34 Reason for consultation: 12/27/19 15:35 AMS, dysarthria Consulted provider: will see as inpatient Discharge - Discharge Clinical Impression: Altered mental status, Dysarthria, Congestive heart failure, Valvular heart disease, Mitral regurgitation Condition: Fair Disposition: ADMITTED INPATIENT Admitting Provider: [facility] Admitted: [facility] Referrals: MARISSA PHAM MD [Primary Care Provider] - Follow up as needed ED NIH Stroke Scale - NIH Stroke Scale When completed:: Protocol *: 1. NIH scale should be completed with appropriate accompanying assessment tools. *: 2. The NIH should reflect what the patient is capable of doing and should not be coached by the clinician. 1a. Level of Consciousness: 0=Alert;keenly responsive -: 1=Drowsy -: 2=Obtunded -: 3=Coma/unresponsive or reflex to noxious stimuli. 1a. Responses: 1 1b. Orientation Questions: a. What month is it? -: b. How old are you? -: 0=Answers both questions correctly. -: 1=Answers one question correctly or patient is intubated or has orotracheal trauma. -: 2=Answers neither question correctly. 1b. Responses: 2 1c. Response to commands: a. Open and close eyes? -: b. Moisture Meter Operator and release hand? -: Credit is given despite weakness. Demonstration of task is permitted. Substitute command if hands cannot be used. -: 0=Performs both tasks correctly -: 1=Performs one task correctly -: 2=Performs neither task correctly 1c. Responses: 0 2. Gaze: Establish eye contact and instruct patient to "Follow my finger" -: 0=Normal -: 1=Partial gaze palsy. Gaze is abnormal in one or both eyes, but where forced deviation or total gaze paresis is not present. -: 2=Forced deviation or total gaze paresis. 2. Responses: 0 3. Visual Rondon: Sees fingers in all four quadrants. -: 0=No visual loss. -: 1=Partial hemianopsia. -: 2=Complete hemianopsia. -: 3=Bilateral hemianopsia (including Cortical blindness) 3. Responses: 0 4. Facial Movement: Instruct patient to: -: a. Show me your teeth -: b. Raise your eyebrows -: c. Close your eyes -: d. Smile -: 0=Normal symmetrical movement -: 1=Minor paralysis (flattened nasolabial fold, asymmetry on smiling). -: 2=Partial paralysis (total or near total paralysis of lower face). -: 3=Complete paralysis of upper and lower face 4. Responses: 0 5. Motor functions (left arm): Alternate sides and extend each arm with palms down (90 degrees if sitting or 45 degrees for supine). -: 0=No drift;limb holds for full 10 seconds. -: 1=Drift; limb holds but drifts down before full 10 seconds, but does not hit bed. -: 2=Some effort against gravity; limb cannot get to or maintain position. -: 3=No effort against gravity; limb falls. -: 4=No movement. -: UN=Amputation, joint fusion, explain in comments. 5. Responses (left arm): 1 5. Motor Functions (right arm): Alternate sides and extend each arm with palms down (90 degrees if sitting or 45 degrees for supine). -: 0=No drift;limb holds for full 10 seconds. -: 1=Drift; limb holds but drifts down before full 10 seconds, but does not hit bed. -: 2=Some effort against gravity; limb cannot get to or maintain position. -: 3=No effort against gravity; limb falls. -: 4=No movement. -: UN=Amputation, joint fusion, explain in comments. 5. Responses (right arm): 1 6. Motor Functions (left leg): With patient lying supine, alternate sides and extend each leg (30 degrees always while supine). -: 0=No drift, leg holds position for full 5 seconds -: 1=Drift; leg falls before full 5 seconds but does not hit bed. -: 2=Some effort against gravity, leg falls to bed but some effort against gravity. -: 3=No effort against gravity, leg falls to bed immediately. -: 4=No movement. -: UN=Amputation, joint fusion; explain in comments. 6. Responses (left leg): 4 - Generalized weakness 6. Motor Functions (right leg): With patient lying supine, alternate sides and extend each leg (30 degrees always while supine). -: 0=No drift, leg holds position for full 5 seconds -: 1=Drift; leg falls before full 5 seconds but does not hit bed. -: 2=Some effort against gravity, leg falls to bed but some effort against gravity. -: 3=No effort against gravity, leg falls to bed immediately. -: 4=No movement. -: UN=Amputation, joint fusion; explain in comments. 6. Responses (right leg): 4 - Generalized weakness 7. Limb Ataxia: With eyes open instruct patient to: -: a. "Touch your finger to your nose". -: b. "Touch your heel to your hirsch" -: 0=Absent -: 1=Present in one limb. -: 2=Present in two limbs. -: UN=Amputation or joint fusion; explain in comments. 7. Responses: 0 - Coordination is impossible right now due to patient's generalized weakness 8. Sensory: Test sensation using pinprick or noxious stimuli. Test as many body parts as possible. -: 0=Normal;no sensory loss -: 1=Mile to moderate sensory loss (patient feels pin prick but is less sharp on affected side). -: 2=Severe or total sensory loss. 8. Responses: 0 9. Best Language: Instruct patient to: -: a. "Describe what you see in this picture." -: b. "Name the items in this picture." -: c. "Read these sentences." -: 0=No aphasia, normal -: 1=Mild to moderate aphasia. -: 2=Severe aphasia -: 3=Mute, global aphasia, no usable speech or auditory comprehension. 9. Responses: 0 10. Articulation, Dysarthia: Instruct patient to: -: "Read these words" or "Repeat these words" -: 0=Normal -: 1=Mild to moderate; patient may slur some words but can be understood without difficulty. -: 2=Severe; patients speech so slurred as to be unintelligible in the absence of dysphasia. -: UN=Intubated or other physical barrier, explain in comments. 10. Responses: 2 11. Extinction or inattention: 0=No abnormality -: 1= Visual, tactile, auditory, spatial, or personal inattention or extinction to bilateral simulation in one or the sensory modalities. -: 2=Profound aurelia-inattention or aurelia-inattention to more than one modality; does not recognize own hand. 11. Responses: 0 Total Score: 15 ED Alteplase Inc/Exc Criteria - Date/Time patient last known well: Date/Time: 12/22/2019 - Date/Time patient arrived in ED: _: 12/27/2019 - Inclusion Criteria: 1: Patient presented to ED within 3 hours of acute ischemic stroke symptom onset? -: No 2: Did baseline CT exclude intracranial hemorrhage and/or other risk factors? -: Yes 3: Is the age of the patient 18 years of age or greater? -: Yes : If any of the above questions are answered "NO" then stop, patient is not a candidate for Alteplase, : If all of the above questions are answered "YES" then continue with Exclusion Criteria. - Exclusion Criteria: 1: Is there evidence of intracranial hemorrhage on baseline CT? 2: Is there suspicion of subarachnoid hemorrhage (even if CT negative)? 3: Is there a history of serious head trauma, recent previous stroke or AK within 3 months? 4: Does the patient have a clinical presentation consistent with AK or post-AK p ericarditis? 5: Is there history of intracranial hemorrhage? 6: On repeated measurement is Systolic BP greater than 185mmHg or Diastolic BP greater that 110 mmHg and is aggressive treatment needed to reduce blood pressure to these limits (e.g. constant infusion of an anti-hypertensive)? 7: Did the patient awake with stroke symptoms? 8: Has the patient had a lumbar puncture or an arterial puncture at a non- compressile site within 7 days? 9: With in the last 14 days did the patient have surgery or major trauma? 10: Is the patient or less than 2 weeks? 11: Was there any active bleeding or acute trauma? 12: Does the patient have intracranial neoplasm, arteriovenous malformation or aneurysm? 13: Does the patient have abnormal glucose (less than 50 or greater than 400mg/dl)? Record glucose in Comment. 14: Patient has rapidly improving symptoms at the time Alteplase is to be Administered. 15: Does the patient have any risks for bleeding, including but not limited to: a.: Current use of Coumadin with PT greater than 15 seconds or INR greater than 1.7. b.: Current use of Pradaxa (Dabigatran). c.: Heparin administereed within the past 48 hours and PTT elevated. d.: Platelet count less than 100,000/mm. e.: Major surgery or serious trauma within 14 days. f.: Gastrointestinal or gynecological urinary bleeding within 14 days. g.: Myocardial Infarction (AK) within 3 months. : If the answer to any of the above questions is "YES" then stop, the patient is not a candidate for Alteplase. : If the answer to all of the above questions is "NO" then the patient may be eligible for the Administration of Alteplase. : If the patient is noted to have seizure activity at onset of Stroke symptoms; Consult Neurologist for further evaluation. - The patient is: -: Included and is eligible to receive Alteplase. *Initiate bed placement at higher level of care* Reviewed risks & benefits of thrombolytic therapy: I have reviewed the risks and benefits of thrombolytic therapy with the patient and/or his/her family. -: Excluded and not eligible to receive Alteplase for the above exclusions. -: Excluded and not eligible to receive Alteplase for other reasons (specify in comments): - Diagnosis of TIA: -: Patient presented with transient symptoms that are now resolved and no other neurologic findings are currently present. List symptoms in comments. -: Patient is NOT a candidate for tPA. -: ____(put name in comment) has been consulted for admission and continued evaluation of risk factor assessment. I personally performed the services described in the documentation, reviewed and edited the documentation which was dictated to the scribe in my presence, and it accurately records my words and actions.
[2019-12-27] MEDS: NORMAL SALINE 1000 ML 1,000 ML IV PRN (19:00)
[2019-12-27] MEDS: VALSARTAN 160 MG TABLET PO SCH (20:30)
[2019-12-27] MEDS: PIPERACILLIN SODIUM/TAZOBACTAM 3.375 GM in NORMAL SALINE 100 ML IV SCH (20:30)
--- NOTE | 2019-12-27 20:30 | PDOC H&P ---
History of Present Illness Admission Date/PCP: 12/27/19 15:58 MARISSA PHAM MD Patient complains of: Difficulty with swallowing and speaking History of Present Illness: BERNABE DORMAN is a 84 year old female patient known to my practice who was presented to the ED via EMS with family reporting change in her mental state over last 5 days. Family reported decrease oral intake and difficulty with swallowing her medication. Her speech become more incomprehensible and she is more sleepy.Family reported recent change with increase in her Entresto dosage and administration of tramadol for her hip pain management. She was recently discharged from this hospital following admission for congestive heart failure and treated with Entresto without any complication except elevated serum potassium level. Her initial evaluation in the ED was significant for elevated NT-Pro BNP, elevated BUN, leukocytosis with left shift, her CT scans were negative for any acute findings, her urinalysis revealed slightly cloudy urine with protein and ketones. She was advised hospitalization for further evaluation and management. Her morbidities are listed below. Past Medical History Cardiac Medical History: Reports: Congestive Heart Failure, Coronary Artery Disease, Myocardial Infarction - unsure, Hyperlipidema, Hypertension, Heart Murmur Denies: Atrial Fibrillation, Peripheral Vascular Disease, Pulmonary Embolism Pulmonary Medical History: Reports: Chronic Obstructive Pulmonary Disease (COPD), Sleep Apnea Denies: Asthma, Bronchitis, Pneumonia, Respiratory Failure, Tuberculosis Neurological Medical History: Denies: Seizures Endocrine Medical History: Denies: Hyperthyroidism, Hypothyroidism Renal/ Medical History: Denies: End Stage Renal Disease Malignancy Medical History: Reports: Breast Cancer - left breast, Lung Cancer - right lung nodules Denies: Cervical Cancer, Leukemia, Ovarian Cancer GI Medical History: Reports: Gastroesophageal Reflux Disease, Hiatal Hernia Denies: Crohn's Disease Musculoskeltal Medical History: Reports: Arthritis Denies: Fibromyalgia Psychiatric Medical History: Denies: Bipolar Disorder, Dementia, Depression, Post Traumatic Stress Disorder Hematology: Reports: Anemia Denies: Hemophilia, Sickle Cell Disease Infectious Medical History: Denies: HIV Past Surgical History Past Surgical History: Reports: Cardiac Catheterization, Section, Coronary Artery Bypass Graft - stent, Coronary Stent, Hysterectomy, Mastectomy - Left breast, Orthopedic Surgery - right hip replacement Denies: Amputation, Appendectomy, Cholecystectomy, Colostomy, Gastric Bypass Surgery, Herniorrhaphy, Pacemaker, Tonsillectomy, Tubal Ligation Social History Lives with: Family Smoking Status: Unknown if Ever Smoked Frequency of Alcohol Use: None Hx Recreational Drug Use: No Drugs: None Hx Prescription Drug Abuse: No - Advance Directive Resuscitation Status: Do Not Resuscitate Family History Family History: Reviewed & Not Pertinent, Hypertension Parental Family History Reviewed: Yes Children Family History Reviewed: Yes Sibling(s) Family History Reviewed.: Yes Medication/Allergy Home Medications: Carbamazepine [Tegretol 200 mg Tablet] 200 mg PO Q12 03/06/19 Carvedilol [Coreg 25 mg Tablet] 25 mg PO Q12 03/06/19 Donepezil HCl [Aricept 5 mg Tablet] 5 mg PO QHS 03/06/19 Ferrous Sulfate [Iron] 325 mg PO DAILY 03/06/19 Polyethylene Glycol 3350 [Miralax Powder 17 gm/Packet] 17 packet PO DAILY 03/06/19 Primidone [Mysoline 50 mg Tablet] 100 mg PO TID 03/06/19 Rosuvastatin Calcium [Crestor 10 mg Tablet] 10 mg PO QHS 03/06/19 Sertraline HCl [Zoloft 50 mg Tablet] 50 mg PO QHS 03/06/19 Sucralfate [Carafate 1 gm Tablet] 1 gm PO QID 03/06/19 Famotidine [Pepcid 20 mg Tablet] 40 mg PO QHS 11/20/19 Psyllium Husk (with Sugar) [Metamucil Packet] 3.4 gm PO BID 11/20/19 Furosemide [Lasix 40 mg Tablet] 40 mg PO DAILY #30 tablet 12/05/19 Levofloxacin [Levaquin 500 mg Tablet] 500 mg PO DAILY #5 tablet 12/05/19 Sacubitril/Valsartan [Entresto 49 mg/51 mg Tablet] 1 tab PO Q12 #60 tablet 12/05/19 Allergies/Adverse Reactions: promethazine HCl [From Phenergan] Allergy (Verified 12/07/18 14:57) Review of Systems ROS unobtainable: Due to mental status - Daughter at bedside contributed to her ROS intake at the time of my bedside evaluation. Constitutional: ABSENT: chills, fever(s) Nose, Mouth, and Throat: PRESENT: sore throat. ABSENT: headache(s) Cardiovascular: ABSENT: chest pain, dyspnea on exertion Respiratory: PRESENT: cough, sputum Gastrointestinal: PRESENT: other - difficulty with swallowing. ABSENT: nausea, vomiting Genitourinary: PRESENT: other - cloudy and associated odor. ABSENT: dysuria Neurological: PRESENT: confusion - with seeing things taht are not visible to other people. Psychiatric: PRESENT: hallucinations - visual as noted above Endocrine: ABSENT: cold intolerance, heat intolerance Hematologic/Lymphatic: ABSENT: easy bruising Physical Exam Vital Signs: Temp Pulse Resp BP Pulse Ox 99.1 F 100 19 173/80 H 98 12/27/19 17:04 12/27/19 17:04 12/27/19 17:04 12/27/19 17:04 12/27/19 17:04 Intake & Output 12/26/19 12/27/19 12/28/19 06:59 06:59 06:59 Intake Total 500 Balance 500 Weight 64.9 kg General appearance: PRESENT: no acute distress Head exam: PRESENT: atraumatic, normocephalic Eye exam: PRESENT: conjunctiva pink Mouth exam: PRESENT: dry mucosa - with collection of yellowish green sputum in oropharyngeal region Respiratory exam: PRESENT: clear to auscultation ulysses, decreased breath sounds - at lung bases Cardiovascular exam: PRESENT: RRR, +S1, +S2. ABSENT: diastolic murmur, rubs, systolic murmur Vascular exam: ABSENT: pallor GI/Abdominal exam: PRESENT: normal bowel sounds, soft. ABSENT: distended, guarding, mass, organolmegaly, rebound, tenderness Rectal exam: PRESENT: deferred Extremities exam: ABSENT: pedal edema Neurological exam: PRESENT: altered - but arousable with incomprehensible speech, probably from dry mouth. Psychiatric exam: ABSENT: agitated Focused psych exam: PRESENT: delusional - visual component Skin exam: PRESENT: dry, warm Results Laboratory Results: 12/27/19 10:00 12/27/19 10:00 12/27/19 12/27/19 12/27/19 10:00 10:00 10:00 WBC 15.5 H RBC 3.32 L Hgb 8.6 L Hct 26.7 L MCV 80 MCH 25.7 L MCHC 32.1 RDW 16.9 H Plt Count 423 Seg Neutrophils % 81.6 H Sodium 143.2 Potassium 4.9 Chloride 111 H Carbon Dioxide 16 L Anion Gap 16 BUN 35 H Creatinine 0.87 Est GFR ( Amer) > 60 Glucose 101 Lactic Acid 1.2 Calcium 9.7 Total Bilirubin 0.4 AST 18 Alkaline Phosphatase 371 H Total Protein 5.5 L Albumin 2.6 L TSH Urine Color Urine Appearance Urine pH Ur Specific [place] Urine Protein Urine Glucose (UA) Urine Ketones Urine Blood Urine Nitrite Ur Leukocyte Esterase Urine WBC (Auto) Urine RBC (Auto) 12/27/19 12/27/19 10:00 10:05 WBC RBC Hgb Hct MCV MCH MCHC RDW Plt Count Seg Neutrophils % Sodium Potassium Chloride Carbon Dioxide Anion Gap BUN Creatinine Est GFR ( Amer) Glucose Lactic Acid Calcium Total Bilirubin AST Alkaline Phosphatase Total Protein Albumin TSH 3.05 Urine Color YELLOW Urine Appearance SLIGHTLY-CLOUDY Urine pH 5.0 Ur Specific [place] 1.018 Urine Protein 30 H Urine Glucose (UA) NEGATIVE Urine Ketones TRACE H Urine Blood NEGATIVE Urine Nitrite NEGATIVE Ur Leukocyte Esterase NEGATIVE Urine WBC (Auto) 1 Urine RBC (Auto) 2 12/27/19 12/27/19 10:00 10:00 Creatine Kinase < 20 L Troponin I < 0.012 NT-Pro-B Natriuret Pep 32675 H Impressions: Chest X-Ray 12/27/19 09:22 IMPRESSION: NO ACUTE RADIOGRAPHIC FINDING IN THE CHEST. Head CT 12/27/19 09:25 IMPRESSION: CHRONIC CHANGES OF ATROPHY AND MICROVASCULAR ISCHEMIA. NO ACUTE PROCESS. EVIDENCE OF ACUTE STROKE: NO. Cervical Spine CT 12/27/19 09:27 IMPRESSION: CHRONIC DEGENERATIVE CHANGES. NO ACUTE FINDINGS. ENLARGED RIGHT LOBE OF THE THYROID. Assessment & Plan - Diagnosis (1) Toxic metabolic encephalopathy Is this a current diagnosis for this admission?: Yes Plan: See admitting attending physician orders for details about care plan. (2) Acute hypoactive delirium due to multiple etiologies Is this a current diagnosis for this admission?: Yes Plan: See admitting attending physician orders for details about care plan. (3) Acute on chronic systolic CHF (congestive heart failure) Is this a current diagnosis for this admission?: Yes Plan: See admitting attending physician orders for details about care plan. (4) HTN (hypertension) Qualifiers: Hypertension type: essential hypertension Qualified Code(s): I10 - Essential (primary) hypertension Is this a current diagnosis for this admission?: Yes Plan: See admitting attending physician orders for details about care plan. (5) MEHDI (acute kidney injury) Is this a current diagnosis for this admission?: Yes Plan: See admitting attending physician orders for details about care plan. (6) CAD (coronary artery disease) Qualifiers: Coronary Disease-Associated Artery/Lesion type: [place] artery [place] vs. transplanted heart: ruby heart Associated angina: with unstable angina Qualified Code(s): I25.110 - Atherosclerotic heart disease of [place] coronary artery with unstable angina pectoris Is this a current diagnosis for this admission?: Yes Plan: See admitting attending physician orders for details about care plan. (7) Hyperlipidemia Qualifiers: Hyperlipidemia type: unspecified Qualified Code(s): E78.5 - Hyperlipidemia, unspecified Is this a current diagnosis for this admission?: Yes Plan: See admitting attending physician orders for details about care plan. (8) COPD (chronic obstructive pulmonary disease) Qualifiers: COPD type: unspecified COPD Qualified Code(s): J44.9 - Chronic obstructive pulmonary disease, unspecified Is this a current diagnosis for this admission?: Yes Plan: See admitting attending physician orders for details about care plan. (9) Essential tremor Is this a current diagnosis for this admission?: Yes Plan: See admitting attending physician orders for details about care plan. 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 - Time Time Spent: 50 to 70 Minutes Medications reviewed and adjusted accordingly: Yes Anticipated Discharge Disposition: Home with Home Health Anticipated Discharge Timeframe: within 72 hours - Inpatient Certification Based on my medical assessment, after consideration of the patient's comorbidities, presenting symptoms, or acuity I expect that the services needed warrant INPATIENT care.: Yes I certify that my determination is in accordance with my understanding of Medicare's requirements for reasonable and necessary INPATIENT services [42 CFR 412.3e].: Yes Medical Necessity: Significant Comorbidiites Make Outpatient Treatment Too Risky, Need Close Monitoring Due to Risk of Patient Decompensation, Need For IV Fluids, Need For Continuous Telemetry Monitoring, Need for Nebulizer Therapy and Monitoring of Response, Need for IV Antibiotics, Risk of Complication if Not Cared For in Hospital, Risk of Diagnosis Which Will Require Inpatient Eval/Care/Monitoring Post Hospital Care: D/C Administrative Volunteer Documentation - Plan Summary Plan Summary: See admitting attending physician orders for details about care plan.
[2019-12-27] MEDS ORDERED: CARVEDILOL 6.25 MG TABLET ONE (20:33)
--- NOTE | 2019-12-27 20:48 | ADVANCED CARE ---
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 Resuscitation Status: Do Not Resuscitate Discussion: wth daughter at bedside. Patient will remain on DNR status as since her last hospitalization. Care Planning Goals: Continue to treat reversible causes for her decompensation. Document(s) Completed: Yes. Time Spent: 15 minutes
[2019-12-27] MEDS: CARVEDILOL 12.5 MG TABLET PO SCH (21:01)
[2019-12-28] MEDS: NORMAL SALINE 1000 ML 1,000 ML IV PRN ×2 (00:05→12:34)
[2019-12-28] MEDS: PIPERACILLIN SODIUM/TAZOBACTAM 3.375 GM in NORMAL SALINE 100 ML IV SCH ×5 (00:05→23:56)
[2019-12-28] MEDS: PANTOPRAZOLE SODIUM 40 MG TABLET.DR PO SCH (05:13)
[2019-12-28 05:32] LABS: ABSOLUTE EOSINOPHILS # (AUTO) 0.3 10^3/uL (0.0-0.6); ABSOLUTE MONOCYTES (AUTO) 1.1 10^3/uL (0.1-1.4); BASOPHILS % (AUTO) 0.3 % (0-2); HEMATOCRIT 26.4 % (36.0-47.0); HEMOGLOBIN 8.2 g/dL (12.0-15.5); LYMPHOCYTES % (AUTO) 6.4 % (13-45); MEAN CORPUSCULAR HEMOGLOBIN 25.2 pg (27.0-33.4); MEAN CORPUSCULAR HGB CONC 31.2 g/dL (32.0-36.0); MEAN CORPUSCULAR VOLUME 81 fl (80-97); MONOCYTES % (AUTO) 6.9 % (3-13); PLATELET COUNT 377 10^3/uL (150-450); RED BLOOD COUNT 3.26 10^6/uL (3.72-5.28); RED CELL DISTRIBUTION WIDTH 16.8 % (11.5-14.0); SEGMENTED NEUTROPHILS % (AUTO) 84.4 % (42-78); TOTAL CELLS COUNTED % (AUTO) 100 %; WHITE BLOOD COUNT 15.4 10^3/uL (4.0-10.5)
[2019-12-28 05:52] LABS: ALBUMIN 2.5 g/dL (3.5-5.0); ALKALINE PHOSPHATASE 445 U/L (38-126); ANION GAP 18 (5-19); ASPARTATE AMINO TRANSFERASE 39 U/L (14-36); BILIRUBIN,DIRECT 0.5 mg/dL (0.0-0.4); BILIRUBIN,TOTAL 0.6 mg/dL (0.2-1.3); BLOOD UREA NITROGEN 31 mg/dL (7-20); CALCIUM 9.7 mg/dL (8.4-10.2); CARBON DIOXIDE 11 mmol/L (22-30); CHLORIDE 116 mmol/L (98-107); GLUCOSE 106 mg/dL (75-110); POTASSIUM 4.8 mmol/L (3.6-5.0); TOTAL PROTEIN 5.4 g/dL (6.3-8.2)
[2019-12-28] MEDS ORDERED: INFLUENZA QUAD (6MOS+) 2020-21 VAC 0.5 ML SYR IM ONE (08:00)
[2019-12-28] MEDS: VALSARTAN 160 MG TABLET PO SCH (09:05)
[2019-12-28] MEDS: ENOXAPARIN SODIUM INJ 40 MG/0.4 ML DISP.SYRIN SUBCUT SCH (09:07)
[2019-12-28] MEDS: CARVEDILOL 12.5 MG TABLET PO SCH ×2 (09:07→21:12)
--- NOTE | 2019-12-28 15:33 | PDOC PROGRESS REPORT ---
Subjective Progress Note for:: 12/28/19 Subjective:: Patient is awake and more alert this morning with appropriate simple responses. No chest pain. Remain on BiPAP support. Tolerating oral feeding but minimal amount. No reported fever or chills. Reason For Visit: TOXIC METABOLIC ENCEPHALOPATHY,ACUTE DELIRIUM, Physical Exam Vital Signs: Temp Pulse Resp BP Pulse Ox 97.5 F 94 21 H 160/66 H 99 12/28/19 11:45 12/28/19 14:00 12/28/19 11:45 12/28/19 11:45 12/28/19 11:45 Intake & Output 12/27/19 12/28/19 12/29/19 06:59 06:59 06:59 Intake Total 1268 1000 Balance 1268 1000 Weight 69.3 kg General appearance: PRESENT: no acute distress Head exam: PRESENT: atraumatic, normocephalic Eye exam: PRESENT: conjunctiva pink. ABSENT: scleral icterus Respiratory exam: PRESENT: clear to auscultation ulysses, decreased breath sounds - at lung bases Cardiovascular exam: PRESENT: RRR, +S1, +S2. ABSENT: diastolic murmur, rubs, systolic murmur Vascular exam: ABSENT: pallor GI/Abdominal exam: PRESENT: normal bowel sounds, soft. ABSENT: tenderness Extremities exam: ABSENT: pedal edema Neurological exam: PRESENT: alert, awake, oriented to person, oriented to place, oriented to situation Skin exam: PRESENT: dry, warm Results Laboratory Results: 12/28/19 05:07 12/28/19 05:07 12/28/19 12/28/19 05:07 05:07 WBC 15.4 H RBC 3.26 L Hgb 8.2 L Hct 26.4 L MCV 81 MCH 25.2 L MCHC 31.2 L RDW 16.8 H Plt Count 377 Seg Neutrophils % 84.4 H Sodium 144.9 Potassium 4.8 Chloride 116 H Carbon Dioxide 11 L Anion Gap 18 BUN 31 H Creatinine 0.89 Est GFR ( Amer) > 60 Glucose 106 Calcium 9.7 Total Bilirubin 0.6 AST 39 H Alkaline Phosphatase 445 H Total Protein 5.4 L Albumin 2.5 L 12/27/19 12/27/19 10:00 10:00 Creatine Kinase < 20 L Troponin I < 0.012 NT-Pro-B Natriuret Pep H Impressions: Chest X-Ray 12/27/19 09:22 IMPRESSION: NO ACUTE RADIOGRAPHIC FINDING IN THE CHEST. Head CT 12/27/19 09:25 IMPRESSION: CHRONIC CHANGES OF ATROPHY AND MICROVASCULAR ISCHEMIA. NO ACUTE PROCESS. EVIDENCE OF ACUTE STROKE: NO. Cervical Spine CT 12/27/19 09:27 IMPRESSION: CHRONIC DEGENERATIVE CHANGES. NO ACUTE FINDINGS. ENLARGED RIGHT LOBE OF THE THYROID. Assessment & Plan - Diagnosis (1) Toxic metabolic encephalopathy Is this a current diagnosis for this admission?: Yes (2) Acute hypoactive delirium due to multiple etiologies Is this a current diagnosis for this admission?: Yes (3) Acute on chronic systolic CHF (congestive heart failure) Is this a current diagnosis for this admission?: Yes (4) HTN (hypertension) Qualifiers: Hypertension type: essential hypertension Qualified Code(s): I10 - Essential (primary) hypertension Is this a current diagnosis for this admission?: Yes (5) MEHDI (acute kidney injury) Is this a current diagnosis for this admission?: Yes (6) CAD (coronary artery disease) Qualifiers: Coronary Disease-Associated Artery/Lesion type: [place] artery [place] vs. transplanted heart: [place] heart Associated angina: with unstable angina Qualified Code(s): I25.110 - Atherosclerotic heart disease of [place] coronary artery with unstable angina pectoris Is this a current diagnosis for this admission?: Yes (7) Hyperlipidemia Qualifiers: Hyperlipidemia type: unspecified Qualified Code(s): E78.5 - Hyperlipidemia, unspecified Is this a current diagnosis for this admission?: Yes (8) COPD (chronic obstructive pulmonary disease) Qualifiers: COPD type: unspecified COPD Qualified Code(s): J44.9 - Chronic obstructive pulmonary disease, unspecified Is this a current diagnosis for this admission?: Yes (9) Essential tremor Is this a current diagnosis for this admission?: Yes (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 Is this a current diagnosis for this admission?: Yes - Time Time Spent with patient: 25-34 minutes Level of Care: IMCU Medications reviewed and adjusted accordingly: Yes Anticipated discharge: Home with Homehealth, SNF Anticipated DC Timeframe: within 72 hours - Inpatient Certification Based on my medical assessment, after consideration of the patient's comorbidities, presenting symptoms, or acuity I expect that the services needed warrant INPATIENT care.: Yes I certify that my determination is in accordance with my understanding of Medicare's requirements for reasonable and necessary INPATIENT services [42 CFR 412.3e].: Yes Medical Necessity: Significant Comorbidiites Make Outpatient Treatment Too Risky, Need Close Monitoring Due to Risk of Patient Decompensation, Need For IV Fluids, Need For Continuous Telemetry Monitoring, Need for IV Antibiotics, Risk of Complication if Not Cared For in Hospital, Risk of Diagnosis Which Will Require Inpatient Eval/Care/Monitoring Post Hospital Care: D/C Workers Compensation Claims Supervisor Documentation, D/C or Transfer Summary - Plan Summary Plan Summary: Decrease IV fluid to 50 ml / hour. Continue all other current medication management. Re-evaluate response to fluid rate decrease.
[2019-12-28] MEDS: PRIMIDONE 50 MG TABLET PO SCH (17:52)
[2019-12-28] MEDS: ACETAMINOPHEN 325 MG TABLET PO PRN (17:54)
[2019-12-28] MEDS: ATORVASTATIN CALCIUM 20 MG TABLET PO SCH (21:12)
[2019-12-28] MEDS: SERTRALINE HCL 50 MG TABLET PO SCH (21:13)
[2019-12-28] MEDS: CARBAMAZEPINE 200 MG TABLET PO SCH (21:13)
[2019-12-29] MEDS: PANTOPRAZOLE SODIUM 40 MG TABLET.DR PO SCH (05:19)
[2019-12-29] MEDS: NORMAL SALINE 1000 ML 1,000 ML IV PRN (05:20)
[2019-12-29] MEDS: PIPERACILLIN SODIUM/TAZOBACTAM 3.375 GM in NORMAL SALINE 100 ML IV SCH ×4 (05:21→23:42)
[2019-12-29 07:33] LABS: ABSOLUTE BASOPHILS # (AUTO) 0.1 10^3/uL (0.0-0.2); ABSOLUTE EOSINOPHILS # (AUTO) 0.2 10^3/uL (0.0-0.6); ABSOLUTE LYMPHOCYTES (AUTO) 1.1 10^3/uL (0.5-4.7); ABSOLUTE MONOCYTES (AUTO) 1.1 10^3/uL (0.1-1.4); ABSOLUTE NEUT (AUTO) 14.3 10^3/uL (1.7-8.2); BASOPHILS % (AUTO) 0.3 % (0-2); EOSINOPHILS % (AUTO) 1.4 % (0-6); HEMATOCRIT 21.8 % (36.0-47.0); LYMPHOCYTES % (AUTO) 6.7 % (13-45); MEAN CORPUSCULAR HEMOGLOBIN 25.1 pg (27.0-33.4); MEAN CORPUSCULAR HGB CONC 31.9 g/dL (32.0-36.0); MEAN CORPUSCULAR VOLUME 79 fl (80-97); MONOCYTES % (AUTO) 6.7 % (3-13); PLATELET COUNT 360 10^3/uL (150-450); RED BLOOD COUNT 2.78 10^6/uL (3.72-5.28); RED CELL DISTRIBUTION WIDTH 16.9 % (11.5-14.0); SEGMENTED NEUTROPHILS % (AUTO) 84.9 % (42-78); TOTAL CELLS COUNTED % (AUTO) 100 %; WHITE BLOOD COUNT 16.9 10^3/uL (4.0-10.5)
[2019-12-29 07:47] LABS: ANION GAP 18 (5-19); BLOOD UREA NITROGEN 25 mg/dL (7-20); CALCIUM 9.7 mg/dL (8.4-10.2); CARBON DIOXIDE 12 mmol/L (22-30); CHLORIDE 119 mmol/L (98-107); GLUCOSE 134 mg/dL (75-110); POTASSIUM 4.1 mmol/L (3.6-5.0)
[2019-12-29] MEDS: CARVEDILOL 12.5 MG TABLET PO SCH ×2 (10:23→21:18)
[2019-12-29] MEDS: ENOXAPARIN SODIUM INJ 40 MG/0.4 ML DISP.SYRIN SUBCUT SCH (10:24)
[2019-12-29] MEDS: PRIMIDONE 50 MG TABLET PO SCH ×3 (10:24→17:51)
[2019-12-29] MEDS: VALSARTAN 160 MG TABLET PO SCH (10:24)
[2019-12-29] MEDS: CARBAMAZEPINE 200 MG TABLET PO SCH ×2 (10:25→21:19)
[2019-12-29] MEDS: ACETAMINOPHEN 325 MG TABLET PO PRN ×2 (14:03→21:18)
--- NOTE | 2019-12-29 18:35 | PDOC PROGRESS REPORT ---
Subjective Progress Note for:: 12/29/19 Subjective:: Patient is more engaging so far today. No chest pain and remain on BiPAP support while sleeping. No fever or chills. No nausea, vomiting, or abdominal pain. Reason For Visit: TOXIC METABOLIC ENCEPHALOPATHY,ACUTE DELIRIUM, Physical Exam Vital Signs: Temp Pulse Resp BP Pulse Ox 98.3 F 101 H 18 152/86 H 100 12/29/19 17:33 12/29/19 17:33 12/29/19 17:33 12/29/19 17:33 12/29/19 17:33 Intake & Output 12/28/19 12/29/19 12/30/19 06:59 06:59 06:59 Intake Total 1268 2716 0 Output Total 625 Balance 1268 2091 0 Weight 69.3 kg 70.9 kg Physical Exam: General appearance: PRESENT: no acute distress Head exam: PRESENT: atraumatic, normocephalic Eye exam: PRESENT: conjunctiva pink. ABSENT: pallor, scleral icterus Respiratory exam: PRESENT: clear to auscultation ulysses, decreased breath sounds - at lung bases Cardiovascular exam: PRESENT: RRR, +S1, +S2. ABSENT: diastolic murmur, rubs, systolic murmur GI/Abdominal exam: PRESENT: normal bowel sounds, soft. ABSENT: tenderness Extremities exam: ABSENT: pedal edema Neurological exam: PRESENT: alert, awake, oriented to person, oriented to place, oriented to situation Skin exam: PRESENT: dry, warm Results Laboratory Results: 12/29/19 07:14 12/29/19 07:14 12/29/19 12/29/19 12/29/19 07:14 07:14 10:44 WBC 16.9 H RBC 2.78 L Hgb 7.0 L Hct 21.8 L MCV 79 L MCH 25.1 L MCHC 31.9 L RDW 16.9 H Plt Count 360 Seg Neutrophils % 84.9 H Sodium 148.7 H Potassium 4.1 Chloride 119 H Carbon Dioxide 12 L Anion Gap 18 BUN 25 H Creatinine 0.78 Est GFR ( Amer) > 60 Glucose 134 H Calcium 9.7 Stool Occult Blood Blood Type O NEGATIVE Antibody Screen POSITIVE 12/29/19 13:17 WBC RBC Hgb Hct MCV MCH MCHC RDW Plt Count Seg Neutrophils % Sodium Potassium Chloride Carbon Dioxide Anion Gap BUN Creatinine Est GFR ( Amer) Glucose Calcium Stool Occult Blood POSITIVE Blood Type Antibody Screen 12/27/19 10:05 Catheterized Urine Urine Culture - Final NO GROWTH 2 DAYS 12/27/19 12/27/19 10:00 10:00 Creatine Kinase < 20 L Troponin I < 0.012 NT-Pro-B Natriuret Pep 69428 H Impressions: Chest X-Ray 12/27/19 09:22 IMPRESSION: NO ACUTE RADIOGRAPHIC FINDING IN THE CHEST. Head CT 12/27/19 09:25 IMPRESSION: CHRONIC CHANGES OF ATROPHY AND MICROVASCULAR ISCHEMIA. NO ACUTE PROCESS. EVIDENCE OF ACUTE STROKE: NO. Cervical Spine CT 12/27/19 09:27 IMPRESSION: CHRONIC DEGENERATIVE CHANGES. NO ACUTE FINDINGS. ENLARGED RIGHT LOBE OF THE THYROID. Assessment & Plan - Diagnosis (1) Toxic metabolic encephalopathy Is this a current diagnosis for this admission?: Yes (2) Acute hypoactive delirium due to multiple etiologies Is this a current diagnosis for this admission?: Yes (3) Acute on chronic systolic CHF (congestive heart failure) Is this a current diagnosis for this admission?: Yes (4) HTN (hypertension) Qualifiers: Hypertension type: essential hypertension Qualified Code(s): I10 - Essential (primary) hypertension Is this a current diagnosis for this admission?: Yes (5) MEHDI (acute kidney injury) Is this a current diagnosis for this admission?: Yes (6) CAD (coronary artery disease) Qualifiers: Coronary Disease-Associated Artery/Lesion type: [place] artery [place] vs. transplanted heart: [place] heart Associated angina: with unstable angina Qualified Code(s): I25.110 - Atherosclerotic heart disease of [place] coronary artery with unstable angina pectoris Is this a current diagnosis for this admission?: Yes (7) Hyperlipidemia Qualifiers: Hyperlipidemia type: unspecified Qualified Code(s): E78.5 - Hyperlipidemia, unspecified Is this a current diagnosis for this admission?: Yes (8) COPD (chronic obstructive pulmonary disease) Qualifiers: COPD type: unspecified COPD Qualified Code(s): J44.9 - Chronic obstructive pulmonary disease, unspecified Is this a current diagnosis for this admission?: Yes (9) Essential tremor Is this a current diagnosis for this admission?: Yes (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 Monitor post transfusion CBC in AM. - Time Time Spent with patient: 25-34 minutes Level of Care: IMCU Medications reviewed and adjusted accordingly: Yes Anticipated discharge: Home with Homehealth Anticipated DC Timeframe: within 72 hours - Inpatient Certification Based on my medical assessment, after consideration of the patient's comorbidities, presenting symptoms, or acuity I expect that the services needed warrant INPATIENT care.: Yes I certify that my determination is in accordance with my understanding of Medicare's requirements for reasonable and necessary INPATIENT services [42 CFR 412.3e].: Yes Medical Necessity: Significant Comorbidiites Make Outpatient Treatment Too Risky, Need Close Monitoring Due to Risk of Patient Decompensation, Need For Continuous Telemetry Monitoring, Need for IV Antibiotics, Risk of Complication if Not Cared For in Hospital, Risk of Diagnosis Which Will Require Inpatient Eval/Care/Monitoring Post Hospital Care: D/C Extermination Inspector Documentation - Plan Summary Plan Summary: Patient will receive 2 units PRBC transfusion due to her anemia with Hgb level < 8gm/dl. Her stool occult blood test was reported positive with nursing staff report of tarry stool and daughter's report of hemorrhoid may explain her chronic blood loss as etiology for her anemia. SHe will remain on all current medication management. I had extensive discussion with daughter at bedside regarding presented living will that requested for one time cardiopulmonary resuscitation effort and if unsuccessful to ceased effort. Family are currently agreeable to make patient a DNI status. Obtain CBC with diff and CMP in AM.
[2019-12-29] MEDS: ATORVASTATIN CALCIUM 20 MG TABLET PO SCH (21:17)
[2019-12-29] MEDS: SERTRALINE HCL 50 MG TABLET PO SCH (21:18)
[2019-12-29] MEDS ORDERED: FUROSEMIDE INJ/PF 20 MG/2 ML SDV IV ONE (22:00)
[2019-12-30 00:31] LABS: ABSOLUTE EOSINOPHILS # (AUTO) 0.5 10^3/uL (0.0-0.6); ABSOLUTE LYMPHOCYTES (AUTO) 1.1 10^3/uL (0.5-4.7); ABSOLUTE MONOCYTES (AUTO) 1.4 10^3/uL (0.1-1.4); ABSOLUTE NEUT (AUTO) 14.5 10^3/uL (1.7-8.2); BASOPHILS % (AUTO) 0.2 % (0-2); EOSINOPHILS % (AUTO) 2.8 % (0-6); HEMATOCRIT 31.7 % (36.0-47.0); LYMPHOCYTES % (AUTO) 6.3 % (13-45); MEAN CORPUSCULAR HEMOGLOBIN 26.4 pg (27.0-33.4); MEAN CORPUSCULAR HGB CONC 32.4 g/dL (32.0-36.0); MEAN CORPUSCULAR VOLUME 82 fl (80-97); PLATELET COUNT 304 10^3/uL (150-450); RED BLOOD COUNT 3.89 10^6/uL (3.72-5.28); RED CELL DISTRIBUTION WIDTH 16.5 % (11.5-14.0); SEGMENTED NEUTROPHILS % (AUTO) 82.7 % (42-78); TOTAL CELLS COUNTED % (AUTO) 100 %; WHITE BLOOD COUNT 17.5 10^3/uL (4.0-10.5)
[2019-12-30 00:32] LABS: HEMOGLOBIN 10.3 g/dL (12.0-15.5)
[2019-12-30] MEDS: PIPERACILLIN SODIUM/TAZOBACTAM 3.375 GM in NORMAL SALINE 100 ML IV SCH ×3 (05:07→17:40)
[2019-12-30] MEDS: PANTOPRAZOLE SODIUM 40 MG TABLET.DR PO SCH (05:10)
[2019-12-30 06:59] LABS: HEMATOCRIT 32.1 % (36.0-47.0); HEMOGLOBIN 10.4 g/dL (12.0-15.5); MEAN CORPUSCULAR HEMOGLOBIN 26.5 pg (27.0-33.4); MEAN CORPUSCULAR HGB CONC 32.5 g/dL (32.0-36.0); MEAN CORPUSCULAR VOLUME 82 fl (80-97); PLATELET COUNT 284 10^3/uL (150-450); RED BLOOD COUNT 3.94 10^6/uL (3.72-5.28); RED CELL DISTRIBUTION WIDTH 16.4 % (11.5-14.0); WHITE BLOOD COUNT 17.4 10^3/uL (4.0-10.5)
[2019-12-30 07:18] LABS: ALBUMIN 2.6 g/dL (3.5-5.0); ALKALINE PHOSPHATASE 360 U/L (38-126); ANION GAP 14 (5-19); ASPARTATE AMINO TRANSFERASE 18 U/L (14-36); BILIRUBIN,DIRECT 0.6 mg/dL (0.0-0.4); BILIRUBIN,TOTAL 0.9 mg/dL (0.2-1.3); BLOOD UREA NITROGEN 27 mg/dL (7-20); CALCIUM 9.7 mg/dL (8.4-10.2); CARBON DIOXIDE 14 mmol/L (22-30); CHLORIDE 119 mmol/L (98-107); GLUCOSE 121 mg/dL (75-110); POTASSIUM 4.2 mmol/L (3.6-5.0); TOTAL PROTEIN 5.6 g/dL (6.3-8.2)
[2019-12-30 08:08] LABS: ABSOLUTE LYMPHOCYTES# (MANUAL) 2.3 10^3/uL (0.5-4.7); ABSOLUTE MONOCYTES # (MANUAL) 0.5 10^3/uL (0.1-1.4); ANISOCYTOSIS 1+; BAND NEUTROPHILS % (MANUAL) 1 % (3-5); BASOPHILS % (MANUAL) 0 % (0-2); EOSINOPHILS % (MANUAL) 3 % (0-6); LYMPHOCYTES % (MANUAL) 12 % (13-45); MONOCYTES % (MANUAL) 3 % (3-13); SEGMENTED NEUTROPHILS % (MAN) 80 % (42-78); TOTAL CELLS COUNTED 100
[2019-12-30 08:09] LABS: PLATELET COMMENT ADEQUATE
[2019-12-30] MEDS: CARVEDILOL 12.5 MG TABLET PO SCH ×2 (09:05→21:34)
[2019-12-30] MEDS: CARBAMAZEPINE 200 MG TABLET PO SCH ×2 (09:06→21:34)
[2019-12-30] MEDS: ENOXAPARIN SODIUM INJ 40 MG/0.4 ML DISP.SYRIN SUBCUT SCH (09:06)
[2019-12-30] MEDS: VALSARTAN 160 MG TABLET PO SCH (09:06)
[2019-12-30] MEDS: PRIMIDONE 50 MG TABLET PO SCH ×3 (09:06→17:39)
[2019-12-30] MEDS: NORMAL SALINE 1000 ML 1,000 ML IV PRN (14:52)
--- NOTE | 2019-12-30 18:31 | PDOC PROGRESS REPORT ---
Subjective Progress Note for:: 12/30/19 Subjective:: Patient is more lucid so far today. Daughter at bedside. No chest pain or difficulty with breathing. He remain on BiPAP support while sleeping. No fever or chills. No nausea, vomiting, or abdominal pain. Reason For Visit: TOXIC METABOLIC ENCEPHALOPATHY,ACUTE DELIRIUM, Physical Exam Vital Signs: Temp Pulse Resp BP Pulse Ox 98.4 F 95 16 149/76 H 99 12/30/19 16:00 12/30/19 16:00 12/30/19 16:00 12/30/19 16:00 12/30/19 16:00 Intake & Output 12/29/19 12/30/19 12/31/19 06:59 06:59 06:59 Intake Total 2716 980 1060 Output Total 625 300 100 Balance 2091 680 960 Weight 70.9 kg 76.1 kg Physical Exam: General appearance: PRESENT: no acute distress Head exam: PRESENT: atraumatic, normocephalic Eye exam: PRESENT: conjunctiva pink. ABSENT: pallor, sclera icterus Respiratory exam: PRESENT: clear to auscultation ulysses, decreased breath sounds - at lung bases Cardiovascular exam: PRESENT: RRR, +S1, +S2. ABSENT: diastolic murmur, rubs, systolic murmur GI/Abdominal exam: PRESENT: normal bowel sounds, soft. ABSENT: tenderness Extremities exam: ABSENT: pedal edema Neurological exam: PRESENT: alert, awake, oriented to person, oriented to place, oriented to situation Skin exam: PRESENT: dry, warm Results Laboratory Results: 12/30/19 06:21 12/30/19 06:21 12/29/19 12/30/19 12/30/19 10:44 00:15 06:21 WBC 17.5 H 17.4 H RBC 3.89 3.94 Hgb 10.3 L D 10.4 L Hct 31.7 L 32.1 L MCV 82 82 MCH 26.4 L 26.5 L MCHC 32.4 32.5 RDW 16.5 H 16.4 H Plt Count 304 284 Seg Neutrophils % 82.7 H Not Reportable Sodium Potassium Chloride Carbon Dioxide Anion Gap BUN Creatinine Est GFR ( Amer) Glucose Calcium Total Bilirubin AST Alkaline Phosphatase Total Protein Albumin Blood Type O NEGATIVE Antibody Screen POSITIVE 12/30/19 06:21 WBC RBC Hgb Hct MCV MCH MCHC RDW Plt Count Seg Neutrophils % Sodium 146.9 H Potassium 4.2 Chloride 119 H Carbon Dioxide 14 L Anion Gap 14 BUN 27 H Creatinine 0.88 Est GFR ( Amer) > 60 Glucose 121 H Calcium 9.7 Total Bilirubin 0.9 AST 18 Alkaline Phosphatase 360 H Total Protein 5.6 L Albumin 2.6 L Blood Type Antibody Screen 12/27/19 12/27/19 10:00 10:00 Creatine Kinase < 20 L Troponin I < 0.012 NT-Pro-B Natriuret Pep 21927 H Impressions: Chest X-Ray 12/27/19 09:22 IMPRESSION: NO ACUTE RADIOGRAPHIC FINDING IN THE CHEST. Head CT 12/27/19 09:25 IMPRESSION: CHRONIC CHANGES OF ATROPHY AND MICROVASCULAR ISCHEMIA. NO ACUTE PROCESS. EVIDENCE OF ACUTE STROKE: NO. Cervical Spine CT 12/27/19 09:27 IMPRESSION: CHRONIC DEGENERATIVE CHANGES. NO ACUTE FINDINGS. ENLARGED RIGHT LOBE OF THE THYROID. Assessment & Plan - Diagnosis (1) Toxic metabolic encephalopathy Is this a current diagnosis for this admission?: Yes (2) Acute hypoactive delirium due to multiple etiologies Is this a current diagnosis for this admission?: Yes (3) Acute on chronic systolic CHF (congestive heart failure) Is this a current diagnosis for this admission?: Yes (4) HTN (hypertension) Qualifiers: Hypertension type: essential hypertension Qualified Code(s): I10 - Essential (primary) hypertension Is this a current diagnosis for this admission?: Yes (5) MEHDI (acute kidney injury) Is this a current diagnosis for this admission?: Yes (6) CAD (coronary artery disease) Qualifiers: Coronary Disease-Associated Artery/Lesion type: [place] artery [place] vs. transplanted heart: [place] heart Associated angina: with unstable angina Qualified Code(s): I25.110 - Atherosclerotic heart disease of [place] coronary artery with unstable angina pectoris Is this a current diagnosis for this admission?: Yes (7) Hyperlipidemia Qualifiers: Hyperlipidemia type: unspecified Qualified Code(s): E78.5 - Hyperlipidemia, unspecified Is this a current diagnosis for this admission?: Yes (8) COPD (chronic obstructive pulmonary disease) Qualifiers: COPD type: unspecified COPD Qualified Code(s): J44.9 - Chronic obstructive pulmonary disease, unspecified Is this a current diagnosis for this admission?: Yes (9) Essential tremor Is this a current diagnosis for this admission?: Yes (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 Is this a current diagnosis for this admission?: Yes (11) Anemia due to chronic blood loss Is this a current diagnosis for this admission?: Yes - Time Time Spent with patient: 25-34 minutes Level of Care: IMCU Medications reviewed and adjusted accordingly: Yes Anticipated discharge: Home with Homehealth, SNF Anticipated DC Timeframe: within 48 hours - Inpatient Certification Based on my medical assessment, after consideration of the patient's comorb idities, presenting symptoms, or acuity I expect that the services needed warrant INPATIENT care.: Yes I certify that my determination is in accordance with my understanding of Medicare's requirements for reasonable and necessary INPATIENT services [42 CFR 412.3e].: Yes Medical Necessity: Significant Comorbidiites Make Outpatient Treatment Too Risky, Need Close Monitoring Due to Risk of Patient Decompensation, Need For Continuous Telemetry Monitoring, Need for IV Antibiotics, Risk of Complication if Not Cared For in Hospital, Risk of Diagnosis Which Will Require Inpatient Eval/Care/Monitoring Post Hospital Care: D/C Cashier Ticket Selling Documentation - Plan Summary Plan Summary: IV Levofloxacin 250 mg daily to her antibiotic regimen. Continue all other current medication management.
[2019-12-30] MEDS: LEVOFLOXACIN 250 MG/D5W RTU 250 MG/50 ML RTUPB IV SCH (21:34)
[2019-12-30] MEDS: ATORVASTATIN CALCIUM 20 MG TABLET PO SCH (21:34)
[2019-12-30] MEDS: SERTRALINE HCL 50 MG TABLET PO SCH (21:34)
[2019-12-31] MEDS: PIPERACILLIN SODIUM/TAZOBACTAM 3.375 GM in NORMAL SALINE 100 ML IV SCH ×4 (00:12→18:15)
[2019-12-31] MEDS: PANTOPRAZOLE SODIUM 40 MG TABLET.DR PO SCH (05:16)
[2019-12-31 06:44] LABS: HEMATOCRIT 31.8 % (36.0-47.0); HEMOGLOBIN 10.3 g/dL (12.0-15.5); MEAN CORPUSCULAR HEMOGLOBIN 26.5 pg (27.0-33.4); MEAN CORPUSCULAR HGB CONC 32.2 g/dL (32.0-36.0); MEAN CORPUSCULAR VOLUME 82 fl (80-97); PLATELET COUNT 268 10^3/uL (150-450); RED BLOOD COUNT 3.86 10^6/uL (3.72-5.28); RED CELL DISTRIBUTION WIDTH 17.3 % (11.5-14.0); WHITE BLOOD COUNT 15.2 10^3/uL (4.0-10.5)
[2019-12-31 07:02] LABS: ALBUMIN 2.7 g/dL (3.5-5.0); ALKALINE PHOSPHATASE 280 U/L (38-126); ANION GAP 13 (5-19); ASPARTATE AMINO TRANSFERASE 13 U/L (14-36); BILIRUBIN,DIRECT 0.5 mg/dL (0.0-0.4); BILIRUBIN,TOTAL 0.5 mg/dL (0.2-1.3); BLOOD UREA NITROGEN 27 mg/dL (7-20); CALCIUM 9.3 mg/dL (8.4-10.2); CARBON DIOXIDE 17 mmol/L (22-30); CHLORIDE 118 mmol/L (98-107); GLUCOSE 97 mg/dL (75-110); POTASSIUM 4.1 mmol/L (3.6-5.0); TOTAL PROTEIN 5.7 g/dL (6.3-8.2)
[2019-12-31 07:06] LABS: ABSOLUTE LYMPHOCYTES# (MANUAL) 2.4 10^3/uL (0.5-4.7); ABSOLUTE MONOCYTES # (MANUAL) 0.5 10^3/uL (0.1-1.4); BAND NEUTROPHILS % (MANUAL) 1 % (3-5); BASOPHILS % (MANUAL) 0 % (0-2); EOSINOPHILS % (MANUAL) 4 % (0-6); LYMPHOCYTES % (MANUAL) 16 % (13-45); MONOCYTES % (MANUAL) 3 % (3-13); SEGMENTED NEUTROPHILS % (MAN) 76 % (42-78); TOTAL CELLS COUNTED 100
[2019-12-31 07:07] LABS: ANISOCYTOSIS 1+; PLATELET COMMENT ADEQUATE; POLYCHROMASIA SLIGHT
[2019-12-31] MEDS: VALSARTAN 160 MG TABLET PO SCH (09:52)
[2019-12-31] MEDS: CARVEDILOL 12.5 MG TABLET PO SCH ×2 (09:52→21:12)
[2019-12-31] MEDS: PRIMIDONE 50 MG TABLET PO SCH ×3 (09:53→18:15)
[2019-12-31] MEDS: CARBAMAZEPINE 200 MG TABLET PO SCH ×2 (09:53→21:12)
[2019-12-31] MEDS: ENOXAPARIN SODIUM INJ 40 MG/0.4 ML DISP.SYRIN SUBCUT SCH (09:53)
[2019-12-31] MEDS: NORMAL SALINE 1000 ML 1,000 ML IV PRN (13:52)
[2019-12-31] MEDS: ACETAMINOPHEN 325 MG TABLET PO PRN (13:53)
--- NOTE | 2019-12-31 18:35 | PDOC PROGRESS REPORT ---
Subjective Progress Note for:: 12/31/19 Subjective:: Patient denied chest pain or difficulty with breathing. No fever or chills. No nausea, vomiting, or abdominal pain. She remain on BiPAP support while sleeping. Reason For Visit: TOXIC METABOLIC ENCEPHALOPATHY,ACUTE DELIRIUM, Physical Exam Vital Signs: Temp Pulse Resp BP Pulse Ox 98.4 F 84 18 150/71 H 97 12/31/19 14:56 12/31/19 14:56 12/31/19 14:56 12/31/19 14:56 12/31/19 14:56 Intake & Output 12/30/19 12/31/19 01/01/20 06:59 06:59 06:59 Intake Total 980 1670 1965 Output Total 300 250 100 Balance 680 1420 1865 Weight 76.1 kg 77 kg Physical Exam: General appearance: PRESENT: no acute distress Head exam: PRESENT: atraumatic, normocephalic Eye exam: PRESENT: conjunctiva pink. ABSENT: pallor, sclera icterus Respiratory exam: PRESENT: clear to auscultation ulysses, decreased breath sounds - at lung bases Cardiovascular exam: PRESENT: RRR, +S1, +S2. ABSENT: diastolic murmur, rubs, systolic murmur GI/Abdominal exam: PRESENT: normal bowel sounds, soft. ABSENT: tenderness Extremities exam: ABSENT: pedal edema Neurological exam: PRESENT: alert, awake, oriented to person, oriented to place, oriented to situation Skin exam: PRESENT: dry, warm Results Laboratory Results: 12/31/19 05:34 12/31/19 05:34 12/31/19 12/31/19 05:34 05:34 WBC 15.2 H RBC 3.86 Hgb 10.3 L Hct 31.8 L MCV 82 MCH 26.5 L MCHC 32.2 RDW 17.3 H Plt Count 268 Seg Neutrophils % Not Reportable Sodium 147.5 H Potassium 4.1 Chloride 118 H Carbon Dioxide 17 L Anion Gap 13 BUN 27 H Creatinine 0.92 Est GFR ( Amer) > 60 Glucose 97 Calcium 9.3 Total Bilirubin 0.5 AST 13 L Alkaline Phosphatase 280 H Total Protein 5.7 L Albumin 2.7 L 12/27/19 12/27/19 10:00 10:00 Creatine Kinase < 20 L Troponin I < 0.012 NT-Pro-B Natriuret Pep 55824 H Impressions: Chest X-Ray 12/27/19 09:22 IMPRESSION: NO ACUTE RADIOGRAPHIC FINDING IN THE CHEST. Head CT 12/27/19 09:25 IMPRESSION: CHRONIC CHANGES OF ATROPHY AND MICROVASCULAR ISCHEMIA. NO ACUTE PROCESS. EVIDENCE OF ACUTE STROKE: NO. Cervical Spine CT 12/27/19 09:27 IMPRESSION: CHRONIC DEGENERATIVE CHANGES. NO ACUTE FINDINGS. ENLARGED RIGHT LOBE OF THE THYROID. Assessment & Plan - Diagnosis (1) Toxic metabolic encephalopathy Is this a current diagnosis for this admission?: Yes (2) Acute hypoactive delirium due to multiple etiologies Is this a current diagnosis for this admission?: Yes (3) Acute on chronic systolic CHF (congestive heart failure) Is this a current diagnosis for this admission?: Yes (4) HTN (hypertension) Qualifiers: Hypertension type: essential hypertension Qualified Code(s): I10 - Essential (primary) hypertension Is this a current diagnosis for this admission?: Yes (5) MEHDI (acute kidney injury) Is this a current diagnosis for this admission?: Yes (6) CAD (coronary artery disease) Qualifiers: Coronary Disease-Associated Artery/Lesion type: [place] artery [place] vs. transplanted heart: [place] heart Associated angina: with unstable angina Qualified Code(s): I25.110 - Atherosclerotic heart disease of [place] coronary artery with unstable angina pectoris Is this a current diagnosis for this admission?: Yes (7) Hyperlipidemia Qualifiers: Hyperlipidemia type: unspecified Qualified Code(s): E78.5 - Hyperlipidemia, unspecified Is this a current diagnosis for this admission?: Yes (8) COPD (chronic obstructive pulmonary disease) Qualifiers: COPD type: unspecified COPD Qualified Code(s): J44.9 - Chronic obstructive pulmonary disease, unspecified Is this a current diagnosis for this admission?: Yes (9) Essential tremor Is this a current diagnosis for this admission?: Yes (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 Is this a current diagnosis for this admission?: Yes (11) Anemia due to chronic blood loss Is this a current diagnosis for this admission?: Yes - Time Time Spent with patient: 25-34 minutes Level of Care: IMCU Medications reviewed and adjusted accordingly: Yes Anticipated discharge: Home with Homehealth, SNF Anticipated DC Timeframe: within 72 hours - Inpatient Certification Based on my medical assessment, after consideration of the patient's comorbidities, presenting symptoms, or acuity I expect that the services needed warrant INPATIENT care.: Yes I certify that my determination is in accordance with my understanding of Medicare's requirements for reasonable and necessary INPATIENT services [42 CFR 412.3e].: Yes Medical Necessity: Significant Comorbidiites Make Outpatient Treatment Too Risky, Need Close Monitoring Due to Risk of Patient Decompensation, Need For Continuous Telemetry Monitoring, Need for IV Antibiotics, Risk of Complication i f Not Cared For in Hospital, Risk of Diagnosis Which Will Require Inpatient Eval/Care/Monitoring Post Hospital Care: D/C Tariff Clerk Documentation - Plan Summary Plan Summary: Continue current medication management. Follow up on blood culture findings. Obtain a repeat chest X ray.
[2019-12-31] MEDS: ATORVASTATIN CALCIUM 20 MG TABLET PO SCH (21:12)
[2019-12-31] MEDS: SERTRALINE HCL 50 MG TABLET PO SCH (21:12)
[2019-12-31] MEDS: LEVOFLOXACIN 250 MG/D5W RTU 250 MG/50 ML RTUPB IV SCH (21:13)
[2020-01-01] MEDS: PIPERACILLIN SODIUM/TAZOBACTAM 3.375 GM in NORMAL SALINE 100 ML IV SCH ×5 (00:33→23:12)
[2020-01-01] MEDS: PANTOPRAZOLE SODIUM 40 MG TABLET.DR PO SCH (05:48)
[2020-01-01] MEDS: CARVEDILOL 12.5 MG TABLET PO SCH ×2 (11:55→21:46)
[2020-01-01] MEDS: VALSARTAN 160 MG TABLET PO SCH (11:55)
[2020-01-01] MEDS: ENOXAPARIN SODIUM INJ 40 MG/0.4 ML DISP.SYRIN SUBCUT SCH (11:56)
[2020-01-01] MEDS: CARBAMAZEPINE 200 MG TABLET PO SCH ×2 (11:57→21:45)
[2020-01-01] MEDS: PRIMIDONE 50 MG TABLET PO SCH ×3 (11:59→21:45)
[2020-01-01] MEDS: ACETAMINOPHEN 325 MG TABLET PO PRN (17:23)
--- NOTE | 2020-01-01 17:49 | PDOC PROGRESS REPORT ---
Subjective Progress Note for:: 01/01/20 Subjective:: Patient denied chest pain or difficulty with breathing. No fever or chills. No nausea, vomiting, or abdominal pain. Attempted PT session earlier today but unsuccessful due to dislodge of her vascular access. She remain on BiPAP support while sleeping. Reason For Visit: TOXIC METABOLIC ENCEPHALOPATHY,ACUTE DELIRIUM, Physical Exam Vital Signs: Temp Pulse Resp BP Pulse Ox 98.1 F 78 16 138/59 H 100 01/01/20 03:35 01/01/20 07:00 01/01/20 03:35 01/01/20 03:35 01/01/20 03:35 Intake & Output 12/31/19 01/01/20 01/02/20 06:59 06:59 06:59 Intake Total 1670 2515 Output Total 250 100 Balance 1420 2415 Weight 77 kg 75.4 kg Physical Exam: General appearance: PRESENT: no acute distress Head exam: PRESENT: atraumatic, normocephalic Eye exam: PRESENT: conjunctiva pink. ABSENT: pallor, sclera icterus Respiratory exam: PRESENT: clear to auscultation ulysses, decreased breath sounds - at lung bases Cardiovascular exam: PRESENT: RRR, +S1, +S2. ABSENT: diastolic murmur, rubs, systolic murmur GI/Abdominal exam: PRESENT: normal bowel sounds, soft. ABSENT: tenderness Extremities exam: ABSENT: pedal edema Neurological exam: PRESENT: alert, awake, oriented to person, oriented to place, oriented to situation Skin exam: PRESENT: dry, warm Results Laboratory Results: 12/31/19 05:34 12/31/19 05:34 12/27/19 12/27/19 10:00 10:00 Creatine Kinase < 20 L Troponin I < 0.012 NT-Pro-B Natriuret Pep 63574 H Impressions: Chest X-Ray 12/27/19 09:22 IMPRESSION: NO ACUTE RADIOGRAPHIC FINDING IN THE CHEST. Head CT 12/27/19 09:25 IMPRESSION: CHRONIC CHANGES OF ATROPHY AND MICROVASCULAR ISCHEMIA. NO ACUTE PROCESS. EVIDENCE OF ACUTE STROKE: NO. Cervical Spine CT 12/27/19 09:27 IMPRESSION: CHRONIC DEGENERATIVE CHANGES. NO ACUTE FINDINGS. ENLARGED RIGHT LOBE OF THE THYROID. Assessment & Plan - Diagnosis (1) Toxic metabolic encephalopathy Is this a current diagnosis for this admission?: Yes (2) Acute hypoactive delirium due to multiple etiologies Is this a current diagnosis for this admission?: Yes (3) Acute on chronic systolic CHF (congestive heart failure) Is this a current diagnosis for this admission?: Yes (4) HTN (hypertension) Qualifiers: Hypertension type: essential hypertension Qualified Code(s): I10 - Essential (primary) hypertension Is this a current diagnosis for this admission?: Yes (5) MEHDI (acute kidney injury) Is this a current diagnosis for this admission?: Yes (6) CAD (coronary artery disease) Qualifiers: Coronary Disease-Associated Artery/Lesion type: [place] artery [place] vs. transplanted heart: [place] heart Associated angina: with unstable angina Qualified Code(s): I25.110 - Atherosclerotic heart disease of [place] coronary artery with unstable angina pectoris Is this a current diagnosis for this admission?: Yes (7) Hyperlipidemia Qualifiers: Hyperlipidemia type: unspecified Qualified Code(s): E78.5 - Hyperlipidemia, unspecified Is this a current diagnosis for this admission?: Yes (8) COPD (chronic obstructive pulmonary disease) Qualifiers: COPD type: unspecified COPD Qualified Code(s): J44.9 - Chronic obstructive pulmonary disease, unspecified Is this a current diagnosis for this admission?: Yes (9) Essential tremor Is this a current diagnosis for this admission?: Yes (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 Is this a current diagnosis for this admission?: Yes (11) Anemia due to chronic blood loss Is this a current diagnosis for this admission?: Yes - Time Time Spent with patient: 25-34 minutes Level of Care: IMCU Medications reviewed and adjusted accordingly: Yes Anticipated discharge: Home with Homehealth, SNF Anticipated DC Timeframe: within 72 hours - Inpatient Certification Based on my medical assessment, after consideration of the patient's comorbidities, presenting symptoms, or acuity I expect that the services needed warrant INPATIENT care.: Yes I certify that my determination is in accordance with my understanding of Medicare's requirements for reasonable and necessary INPATIENT services [42 CFR 412.3e].: Yes Medical Necessity: Significant Comorbidiites Make Outpatient Treatment Too Risky, Need Close Monitoring Due to Risk of Patient Decompensation, Need For Continuous Telemetry Monitoring, Need for IV Antibiotics, Risk of Complication if Not Cared For in Hospital, Risk of Diagnosis Which Will Require Inpatient Eval/Care/Monitoring Post Hospital Care: D/C Card Placer Documentation, D/C or Transfer Summary - Plan Summary Plan Summary: Continue current medication management. Obtain CBC with diff and CMP in AM.
[2020-01-01] MEDS: LEVOFLOXACIN 250 MG/D5W RTU 250 MG/50 ML RTUPB IV SCH (21:45)
[2020-01-01] MEDS: SERTRALINE HCL 50 MG TABLET PO SCH (21:46)
[2020-01-01] MEDS: ATORVASTATIN CALCIUM 20 MG TABLET PO SCH (21:46)
[2020-01-02] MEDS: PANTOPRAZOLE SODIUM 40 MG TABLET.DR PO SCH (06:16)
[2020-01-02] MEDS: PIPERACILLIN SODIUM/TAZOBACTAM 3.375 GM in NORMAL SALINE 100 ML IV SCH ×4 (06:16→23:50)
[2020-01-02 09:49] LABS: ABSOLUTE BASOPHILS # (AUTO) 0.1 10^3/uL (0.0-0.2); ABSOLUTE EOSINOPHILS # (AUTO) 0.5 10^3/uL (0.0-0.6); ABSOLUTE LYMPHOCYTES (AUTO) 1.1 10^3/uL (0.5-4.7); ABSOLUTE MONOCYTES (AUTO) 1.3 10^3/uL (0.1-1.4); ABSOLUTE NEUT (AUTO) 15.4 10^3/uL (1.7-8.2); BASOPHILS % (AUTO) 0.3 % (0-2); EOSINOPHILS % (AUTO) 2.7 % (0-6); HEMATOCRIT 32.4 % (36.0-47.0); HEMOGLOBIN 10.4 g/dL (12.0-15.5); LYMPHOCYTES % (AUTO) 5.9 % (13-45); MEAN CORPUSCULAR HEMOGLOBIN 26.4 pg (27.0-33.4); MEAN CORPUSCULAR VOLUME 82 fl (80-97); MONOCYTES % (AUTO) 7.3 % (3-13); PLATELET COUNT 227 10^3/uL (150-450); RED BLOOD COUNT 3.93 10^6/uL (3.72-5.28); RED CELL DISTRIBUTION WIDTH 17.9 % (11.5-14.0); SEGMENTED NEUTROPHILS % (AUTO) 83.8 % (42-78); TOTAL CELLS COUNTED % (AUTO) 100 %; WHITE BLOOD COUNT 18.4 10^3/uL (4.0-10.5)
[2020-01-02] MEDS: PRIMIDONE 50 MG TABLET PO SCH ×3 (09:50→18:06)
[2020-01-02] MEDS: CARVEDILOL 12.5 MG TABLET PO SCH ×2 (09:50→21:54)
[2020-01-02] MEDS: VALSARTAN 160 MG TABLET PO SCH (09:50)
[2020-01-02] MEDS: CARBAMAZEPINE 200 MG TABLET PO SCH ×2 (09:50→21:54)
[2020-01-02] MEDS: ENOXAPARIN SODIUM INJ 40 MG/0.4 ML DISP.SYRIN SUBCUT SCH (09:50)
[2020-01-02 09:59] LABS: ALBUMIN 2.5 g/dL (3.5-5.0); ALKALINE PHOSPHATASE 177 U/L (38-126); ANION GAP 10 (5-19); ASPARTATE AMINO TRANSFERASE 18 U/L (14-36); BILIRUBIN,DIRECT 0.4 mg/dL (0.0-0.4); BILIRUBIN,TOTAL 0.5 mg/dL (0.2-1.3); BLOOD UREA NITROGEN 26 mg/dL (7-20); CALCIUM 9.1 mg/dL (8.4-10.2); CARBON DIOXIDE 17 mmol/L (22-30); CHLORIDE 117 mmol/L (98-107); GLUCOSE 104 mg/dL (75-110); POTASSIUM 3.8 mmol/L (3.6-5.0); TOTAL PROTEIN 5.5 g/dL (6.3-8.2)
[2020-01-02] MEDS: ACETAMINOPHEN 325 MG TABLET PO PRN ×2 (13:36→18:11)
[2020-01-02] MEDS: NORMAL SALINE 1000 ML 1,000 ML IV PRN (16:11)
--- NOTE | 2020-01-02 16:12 | PDOC PROGRESS REPORT ---
Subjective Progress Note for:: 01/02/20 Subjective:: Patient had an episode of diarrhea earlier today. No nausea, vomiting, or abdominal pain. denied chest pain or difficulty with breathing. No fever or chills. Reason For Visit: TOXIC METABOLIC ENCEPHALOPATHY,ACUTE DELIRIUM, Physical Exam Vital Signs: Temp Pulse Resp BP Pulse Ox 97.7 F 74 16 150/68 H 100 01/02/20 11:52 01/02/20 11:52 01/02/20 11:52 01/02/20 11:52 01/02/20 11:52 Intake & Output 01/01/20 01/02/20 01/03/20 06:59 06:59 06:59 Intake Total 2515 698 180 Output Total 100 Balance 2415 698 180 Weight 75.4 kg 76 kg Physical Exam: General appearance: PRESENT: no acute distress Head exam: PRESENT: atraumatic, normocephalic Eye exam: PRESENT: conjunctiva pink. ABSENT: pallor, sclera icterus Respiratory exam: PRESENT: clear to auscultation ulysses, decreased breath sounds - at lung bases Cardiovascular exam: PRESENT: RRR, +S1, +S2. ABSENT: diastolic murmur, rubs, systolic murmur GI/Abdominal exam: PRESENT: normal bowel sounds, soft. ABSENT: tenderness Extremities exam: PRESENT: Left upper extremity breast cancer and mastectomy related lymphedema. ABSENT: pedal edema Neurological exam: PRESENT: alert, awake, oriented to person, oriented to place, oriented to situation Skin exam: PRESENT: dry, warm Results Laboratory Results: 01/02/20 08:50 01/02/20 08:50 01/02/20 01/02/20 08:50 08:50 WBC 18.4 H RBC 3.93 Hgb 10.4 L Hct 32.4 L MCV 82 MCH 26.4 L MCHC 32.0 RDW 17.9 H Plt Count 227 Seg Neutrophils % 83.8 H Sodium 143.5 Potassium 3.8 Chloride 117 H Carbon Dioxide 17 L Anion Gap 10 BUN 26 H Creatinine 1.06 Est GFR ( Amer) > 60 Glucose 104 Calcium 9.1 Total Bilirubin 0.5 AST 18 Alkaline Phosphatase 177 H Total Protein 5.5 L Albumin 2.5 L 12/27/19 12/27/19 10:00 10:00 Creatine Kinase < 20 L Troponin I < 0.012 NT-Pro-B Natriuret Pep [id number] H Impressions: Chest X-Ray 12/27/19 09:22 IMPRESSION: NO ACUTE RADIOGRAPHIC FINDING IN THE CHEST. Head CT 12/27/19 09:25 IMPRESSION: CHRONIC CHANGES OF ATROPHY AND MICROVASCULAR ISCHEMIA. NO ACUTE PROCESS. EVIDENCE OF ACUTE STROKE: NO. Cervical Spine CT 12/27/19 09:27 IMPRESSION: CHRONIC DEGENERATIVE CHANGES. NO ACUTE FINDINGS. ENLARGED RIGHT LOBE OF THE THYROID. Assessment & Plan - Diagnosis (1) Toxic metabolic encephalopathy Is this a current diagnosis for this admission?: Yes (2) Acute hypoactive delirium due to multiple etiologies Is this a current diagnosis for this admission?: Yes (3) Acute on chronic systolic CHF (congestive heart failure) Is this a current diagnosis for this admission?: Yes (4) HTN (hypertension) Qualifiers: Hypertension type: essential hypertension Qualified Code(s): I10 - Essential (primary) hypertension Is this a current diagnosis for this admission?: Yes (5) MEHDI (acute kidney injury) Is this a current diagnosis for this admission?: Yes (6) CAD (coronary artery disease) Qualifiers: Coronary Disease-Associated Artery/Lesion type: [place] artery [place] vs. transplanted heart: [place] heart Associated angina: with unstable angina Qualified Code(s): I25.110 - Atherosclerotic heart disease of [place] coronary artery with unstable angina pectoris Is this a current diagnosis for this admission?: Yes (7) Hyperlipidemia Qualifiers: Hyperlipidemia type: unspecified Qualified Code(s): E78.5 - Hyperlipidemia, unspecified Is this a current diagnosis for this admission?: Yes (8) COPD (chronic obstructive pulmonary disease) Qualifiers: COPD type: unspecified COPD Qualified Code(s): J44.9 - Chronic obstructive pulmonary disease, unspecified Is this a current diagnosis for this admission?: Yes (9) Essential tremor Is this a current diagnosis for this admission?: Yes (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 Is this a current diagnosis for this admission?: Yes (11) Anemia due to chronic blood loss Is this a current diagnosis for this admission?: Yes - Time Time Spent with patient: 25-34 minutes Level of Care: IMCU Medications reviewed and adjusted accordingly: Yes Anticipated discharge: Home with Homehealth, SNF Anticipated DC Timeframe: within 72 hours - Inpatient Certification Based on my medical assessment, after consideration of the patient's comorbidities, presenting symptoms, or acuity I expect that the services needed warrant INPATIENT care.: Yes I certify that my determination is in accordance with my understanding of [facility]'s requirements for reasonable and necessary INPATIENT services [42 CFR 412.3e].: Yes Medical Necessity: Significant Comorbidiites Make Outpatient Treatment Too Risky, Need Close Monitoring Due to Risk of Patient Decompensation, Need For Continuous Telemetry Monitoring, Need for IV Antibiotics, Risk of Complication if Not Cared For in Hospital, Risk of Diagnosis Which Will Require Inpatient Eval/Care/Monitoring Post Hospital Care: D/C Reinsurance Claim Analyst Documentation, D/C or Transfer Summary - Plan Summary Plan Summary: Obtain stool C.dificile toxin titer to evaluate for possible C.dificile colitis in view of her antibiotic therapy, worsening leukocytosis and diarrhea. Obtain CBC with diff and CMP in am.
--- NOTE | 2020-01-02 17:06 | RADIOLOGY REPORT (SQ) ---
EXAM DESCRIPTION: CHEST SINGLE VIEW IMAGES COMPLETED DATE/TIME: 01/02/2020 4:55 pm REASON FOR STUDY: worsening leukocytosis r/o pneumonia COMPARISON: 12/27/2019 EXAM PARAMETERS: NUMBER OF VIEWS: One view. TECHNIQUE: Single frontal radiographic view of the chest acquired. RADIATION DOSE: NA LIMITATIONS: Patient is rotated. FINDINGS: LUNGS AND PLEURA: Hilar prominence. Retrocardiac opacification on the left. Left hemidia phragm is indistinct. MEDIASTINUM AND HILAR STRUCTURES: No masses. Contour normal. HEART AND VASCULAR STRUCTURES: Heart normal in size. Normal vasculature. BONES: No acute findings. HARDWARE: None in the chest. OTHER: No other significant finding. IMPRESSION: Cannot exclude airspace disease in the left lower lobe, pneumonia versus atelectasis. T here is hilar prominence bilaterally. TECHNICAL DOCUMENTATION: JOB ID: [id number] 2010 [employer]- All Rights Reserved Reading location - IP/workstation name: [email or web address]
[2020-01-02] MEDS: LEVOFLOXACIN 250 MG/D5W RTU 250 MG/50 ML RTUPB IV SCH (21:54)
[2020-01-02] MEDS: SERTRALINE HCL 50 MG TABLET PO SCH (21:54)
[2020-01-02] MEDS: ATORVASTATIN CALCIUM 20 MG TABLET PO SCH (21:54)
[2020-01-03] MEDS: ACETAMINOPHEN 325 MG TABLET PO PRN ×3 (00:06→17:30)
[2020-01-03] MEDS: PIPERACILLIN SODIUM/TAZOBACTAM 3.375 GM in NORMAL SALINE 100 ML IV SCH ×3 (06:44→17:33)
[2020-01-03] MEDS: PANTOPRAZOLE SODIUM 40 MG TABLET.DR PO SCH (06:44)
[2020-01-03 08:19] LABS: ABSOLUTE BASOPHILS # (AUTO) 0.1 10^3/uL (0.0-0.2); ABSOLUTE EOSINOPHILS # (AUTO) 0.4 10^3/uL (0.0-0.6); ABSOLUTE LYMPHOCYTES (AUTO) 1.2 10^3/uL (0.5-4.7); ABSOLUTE MONOCYTES (AUTO) 1.5 10^3/uL (0.1-1.4); ABSOLUTE NEUT (AUTO) 16.7 10^3/uL (1.7-8.2); BASOPHILS % (AUTO) 0.3 % (0-2); HEMATOCRIT 32.9 % (36.0-47.0); HEMOGLOBIN 10.6 g/dL (12.0-15.5); MEAN CORPUSCULAR HEMOGLOBIN 26.5 pg (27.0-33.4); MEAN CORPUSCULAR HGB CONC 32.2 g/dL (32.0-36.0); MEAN CORPUSCULAR VOLUME 82 fl (80-97); MONOCYTES % (AUTO) 7.5 % (3-13); PLATELET COUNT 219 10^3/uL (150-450); RED CELL DISTRIBUTION WIDTH 18.1 % (11.5-14.0); SEGMENTED NEUTROPHILS % (AUTO) 84.2 % (42-78); TOTAL CELLS COUNTED % (AUTO) 100 %; WHITE BLOOD COUNT 19.9 10^3/uL (4.0-10.5)
[2020-01-03 08:33] LABS: ALBUMIN 2.4 g/dL (3.5-5.0); ALKALINE PHOSPHATASE 178 U/L (38-126); ANION GAP 12 (5-19); ASPARTATE AMINO TRANSFERASE 13 U/L (14-36); BILIRUBIN,DIRECT 0.4 mg/dL (0.0-0.4); BILIRUBIN,TOTAL 0.4 mg/dL (0.2-1.3); BLOOD UREA NITROGEN 26 mg/dL (7-20); CARBON DIOXIDE 14 mmol/L (22-30); CHLORIDE 119 mmol/L (98-107); GLUCOSE 103 mg/dL (75-110); POTASSIUM 3.8 mmol/L (3.6-5.0); TOTAL PROTEIN 5.3 g/dL (6.3-8.2)
[2020-01-03 09:41] LABS: C DIFFICILE GDH NEGATIVE (NEGATIVE)
[2020-01-03] MEDS: TRAMADOL HCL 50 MG TABLET PO PRN ×2 (11:18→18:38)
[2020-01-03] MEDS: CARBAMAZEPINE 200 MG TABLET PO SCH ×2 (11:18→22:18)
[2020-01-03] MEDS: CARVEDILOL 12.5 MG TABLET PO SCH ×2 (11:18→22:17)
[2020-01-03] MEDS: PRIMIDONE 50 MG TABLET PO SCH ×3 (11:18→17:31)
[2020-01-03] MEDS: ENOXAPARIN SODIUM INJ 40 MG/0.4 ML DISP.SYRIN SUBCUT SCH (11:19)
[2020-01-03] MEDS: VALSARTAN 160 MG TABLET PO SCH (11:19)
--- NOTE | 2020-01-03 13:15 | PDOC PROGRESS REPORT ---
Subjective Progress Note for:: 01/03/20 Subjective:: Patient with chronic systolic heart failure, she has persistent leukocytosis, chest x-ray from 01/02/2020 demonstrated retrocardiac opacification on the left cannot rule out airspace disease, presently on antibiotic Zosyn and Levaquin, she complains of pain in the left hip Reason For Visit: TOXIC METABOLIC ENCEPHALOPATHY,ACUTE DELIRIUM, Physical Exam Vital Signs: Temp Pulse Resp BP Pulse Ox 98.0 F 83 20 154/60 H 99 01/03/20 12:03 01/03/20 12:03 01/03/20 12:03 01/03/20 12:03 01/03/20 12:03 Intake & Output 01/02/20 01/03/20 01/04/20 06:59 06:59 06:59 Intake Total 1748 720 Balance 1748 720 Weight 76 kg 79.8 kg General appearance: PRESENT: no acute distress Eye exam: PRESENT: PERRLA Respiratory exam: PRESENT: clear to auscultation ulysses Cardiovascular exam: PRESENT: +S1, +S2 GI/Abdominal exam: PRESENT: soft Neurological exam: PRESENT: alert Results Laboratory Results: 01/03/20 07:00 01/03/20 07:00 01/03/20 01/03/20 07:00 07:00 WBC 19.9 H RBC 4.00 Hgb 10.6 L Hct 32.9 L MCV 82 MCH 26.5 L MCHC 32.2 RDW 18.1 H Plt Count 219 Seg Neutrophils % 84.2 H Sodium 145.2 H Potassium 3.8 Chloride 119 H Carbon Dioxide 14 L Anion Gap 12 BUN 26 H Creatinine 1.17 Est GFR ( Amer) 53 L Glucose 103 Calcium 9.0 Total Bilirubin 0.4 AST 13 L Alkaline Phosphatase 178 H Total Protein 5.3 L Albumin 2.4 L 12/27/19 12/27/19 10:00 10:00 Creatine Kinase < 20 L Troponin I < 0.012 NT-Pro-B Natriuret Pep 26301 H Impressions: Head CT 12/27/19 09:25 IMPRESSION: CHRONIC CHANGES OF ATROPHY AND MICROVASCULAR ISCHEMIA. NO ACUTE PROCESS. EVIDENCE OF ACUTE STROKE: NO. Cervical Spine CT 12/27/19 09:27 IMPRESSION: CHRONIC DEGENERATIVE CHANGES. NO ACUTE FINDINGS. ENLARGED RIGHT LOBE OF THE THYROID. Chest X-Ray 10/09/20 00:00 IMPRESSION: Cannot exclude airspace disease in the left lower lobe, pneumonia versus atelectasis. There is hilar prominence bilaterally. Assessment & Plan - Diagnosis (1) Pneumonia Qualifiers: Pneumonia type: due to unspecified organism Laterality: unspecified later ality Lung location: unspecified part of lung Qualified Code(s): J18.9 - Pneumonia, unspecified organism Is this a current diagnosis for this admission?: Yes Plan: Continue antibiotic (2) Chronic systolic heart failure Is this a current diagnosis for this admission?: Yes Plan: Continue present treatment for heart failure - Time Time Spent with patient: 35 or more minutes Level of Care: IMCU Medications reviewed and adjusted accordingly: Yes Anticipated discharge: Home Anticipated DC Timeframe: within 72 hours
[2020-01-03] MEDS: NORMAL SALINE 1000 ML 1,000 ML IV PRN (18:23)
[2020-01-03] MEDS: LEVOFLOXACIN 250 MG/D5W RTU 250 MG/50 ML RTUPB IV SCH (22:16)
[2020-01-03] MEDS: SERTRALINE HCL 50 MG TABLET PO SCH (22:17)
[2020-01-03] MEDS: ATORVASTATIN CALCIUM 20 MG TABLET PO SCH (22:17)
[2020-01-04] MEDS: PANTOPRAZOLE SODIUM 40 MG TABLET.DR PO SCH (06:15)
[2020-01-04] MEDS: CARBAMAZEPINE 200 MG TABLET PO SCH ×2 (09:33→21:54)
[2020-01-04] MEDS: CARVEDILOL 12.5 MG TABLET PO SCH ×2 (09:33→21:54)
[2020-01-04] MEDS: TRAMADOL HCL 50 MG TABLET PO PRN ×2 (09:33→18:14)
[2020-01-04] MEDS: PRIMIDONE 50 MG TABLET PO SCH ×3 (09:33→18:14)
[2020-01-04] MEDS: VALSARTAN 160 MG TABLET PO SCH (09:33)
--- NOTE | 2020-01-04 13:50 | PDOC PROGRESS REPORT ---
Subjective Progress Note for:: 01/04/20 Subjective:: Patient seen by the bedside, she is somewhat sleepy today, the nurses said she is not doing quite well today, follow chest x-ray follow lab she is a DO NOT INTUBATE patient, prognosis is guarded to poor. She has underlining chronic systolic heart failure with a superimposed pneumonia Reason For Visit: TOXIC METABOLIC ENCEPHALOPATHY,ACUTE DELIRIUM, Physical Exam Vital Signs: Temp Pulse Resp BP Pulse Ox 97.9 F 90 16 152/63 H 100 01/04/20 09:26 01/04/20 08:00 01/04/20 08:00 01/04/20 08:00 01/04/20 08:00 Intake & Output 01/03/20 01/04/20 01/05/20 06:59 06:59 06:59 Intake Total 720 1850 Balance 720 1850 Weight 79.8 kg 80 kg General appearance: PRESENT: no acute distress Eye exam: PRESENT: PERRLA Respiratory exam: PRESENT: clear to auscultation ulysses Cardiovascular exam: PRESENT: +S1, +S2 GI/Abdominal exam: PRESENT: soft Neurological exam: PRESENT: alert Results Laboratory Results: 01/03/20 07:00 01/03/20 07:00 12/27/19 12/27/19 10:00 10:00 Creatine Kinase < 20 L Troponin I < 0.012 NT-Pro-B Natriuret Pep 45934 H Impressions: Head CT 12/27/19 09:25 IMPRESSION: CHRONIC CHANGES OF ATROPHY AND MICROVASCULAR ISCHEMIA. NO ACUTE PROCESS. EVIDENCE OF ACUTE STROKE: NO. Cervical Spine CT 12/27/19 09:27 IMPRESSION: CHRONIC DEGENERATIVE CHANGES. NO ACUTE FINDINGS. ENLARGED RIGHT LOBE OF THE THYROID. Assessment & Plan - Diagnosis (1) Pneumonia Qualifiers: Pneumonia type: due to unspecified organism Laterality: unspecified laterality Lung location: unspecified part of lung Qualified Code(s): J18.9 - Pneumonia, unspecified organism Is this a current diagnosis for this admission?: Yes Plan: She has finished 7-day course of antibiotic, follow chest x-ray follow lab work still on intravenous Levaquin (2) Chronic systolic heart failure Is this a current diagnosis for this admission?: Yes Plan: Continue present treatment for heart failure - Time Time Spent with patient: 35 or more minutes Level of Care: IMCU Medications reviewed and adjusted accordingly: Yes Anticipated discharge: Home - Inpatient Certification Based on my medical assessment, after consideration of the patient's comorbidities, presenting symptoms, or acuity I expect that the services needed warrant INPATIENT care.: Yes I certify that my determination is in accordance with my understanding of Medicare's requirements for reasonable and necessary INPATIENT services [42 CFR 412.3e].: Yes
--- NOTE | 2020-01-04 14:06 | RADIOLOGY REPORT (SQ) ---
EXAM DESCRIPTION: CHEST SINGLE VIEW IMAGES COMPLETED DATE/TIME: 01/04/2020 1:38 pm REASON FOR STUDY: PNA COMPARISON: 01/02/2020 TECHNIQUE: Single frontal radiographic view of the chest acquired. NUMBER OF VIEWS: One view. LIMITATIONS: RPO positioning FINDINGS: LUNGS AND PLEURA: No pneumothorax. Similar small amount of left basilar airspace disease. No significant pleural effusion. MEDIASTINUM AND HILAR STRUCTURES: Stable. HEART AND VASCULAR STRUCTURES: Stable. BONES: No acute findings. HARDWARE: None in the chest. OTHER: No other significant finding. IMPRESSION: Similar small amount of left basilar airspace disease. No significant pleural effusion. TECHNICAL DOCUMENTATION: JOB ID: [id number] 2010 [employer]- All Rights Reserved Reading location - IP/workstation name: [email or web address]
[2020-01-04 14:13] LABS: HEMATOCRIT 33.2 % (36.0-47.0); HEMOGLOBIN 10.6 g/dL (12.0-15.5); MEAN CORPUSCULAR HEMOGLOBIN 26.5 pg (27.0-33.4); MEAN CORPUSCULAR HGB CONC 31.9 g/dL (32.0-36.0); MEAN CORPUSCULAR VOLUME 83 fl (80-97); PLATELET COUNT 205 10^3/uL (150-450); RED CELL DISTRIBUTION WIDTH 18.7 % (11.5-14.0); WHITE BLOOD COUNT 20.7 10^3/uL (4.0-10.5)
[2020-01-04 14:23] LABS: AMORPHOUS SEDIMENT,URINE TRACE /HPF; APPEARANCE,URINE SLIGHTLY-CLOUDY; BILIRUBIN,URINE NEGATIVE (NEGATIVE); COLOR,URINE YELLOW; GLUCOSE, URINE NEGATIVE (NEGATIVE); KETONES,URINE NEGATIVE (NEGATIVE); LEUKOCYTE ESTERASE,URINE NEGATIVE (NEGATIVE); NITRITE,URINE NEGATIVE (NEGATIVE); PROTEIN,URINE 30 mg/dL (NEGATIVE); URINE SPECIFIC GRAVITY 1.021; UROBILINOGEN,URINE NEGATIVE mg/dL (<2.0)
[2020-01-04 14:31] LABS: ALBUMIN 2.1 g/dL (3.5-5.0); ALKALINE PHOSPHATASE 142 U/L (38-126); ANION GAP 11 (5-19); ASPARTATE AMINO TRANSFERASE 13 U/L (14-36); BILIRUBIN,DIRECT 0.3 mg/dL (0.0-0.4); BILIRUBIN,TOTAL 0.3 mg/dL (0.2-1.3); BLOOD UREA NITROGEN 27 mg/dL (7-20); CALCIUM 8.3 mg/dL (8.4-10.2); CARBON DIOXIDE 15 mmol/L (22-30); CHLORIDE 117 mmol/L (98-107); GLUCOSE 124 mg/dL (75-110); POTASSIUM 3.8 mmol/L (3.6-5.0); TOTAL PROTEIN 4.9 g/dL (6.3-8.2)
[2020-01-04 14:33] LABS: ABSOLUTE MONOCYTES # (MANUAL) 0.4 10^3/uL (0.1-1.4); BAND NEUTROPHILS % (MANUAL) 1 % (3-5); BASOPHILS % (MANUAL) 1 % (0-2); EOSINOPHILS % (MANUAL) 0 % (0-6); LYMPHOCYTES % (MANUAL) 5 % (13-45); MONOCYTES % (MANUAL) 2 % (3-13); SEGMENTED NEUTROPHILS % (MAN) 91 % (42-78); TOTAL CELLS COUNTED 100
[2020-01-04 14:34] LABS: ANISOCYTOSIS 2+; PLATELET COMMENT ADEQUATE
[2020-01-04] MEDS: ACETAMINOPHEN 325 MG TABLET PO PRN ×2 (14:38→21:56)
[2020-01-04] MEDS: ENOXAPARIN SODIUM INJ 40 MG/0.4 ML DISP.SYRIN SUBCUT SCH (14:48)
[2020-01-04] MEDS ORDERED: VANCOMYCIN HCL INJ 1000 MG VIAL IV PRN (17:28)
[2020-01-04] MEDS ORDERED: [UNRECOGNIZED DRUG - REMARK] MC ONE (17:30)
[2020-01-04] MEDS ORDERED: VANCOMYCIN HCL 1,250 MG in DEXTROSE 5%-WATER 250 ML IV ONE (18:00)
[2020-01-04] MEDS ORDERED: VANCOMYCIN HCL INJ 1000 MG VIAL ONE (18:49)
[2020-01-04] MEDS ORDERED: VANCOMYCIN HCL INJ 500 MG VIAL ONE (18:49)
[2020-01-04] MEDS: ATORVASTATIN CALCIUM 20 MG TABLET PO SCH (21:54)
[2020-01-04] MEDS: SERTRALINE HCL 50 MG TABLET PO SCH (21:54)
[2020-01-05] MEDS: TRAMADOL HCL 50 MG TABLET PO PRN ×2 (02:03→18:00)
[2020-01-05] MEDS: LEVOFLOXACIN 250 MG/D5W RTU 250 MG/50 ML RTUPB IV SCH ×2 (05:07→23:10)
[2020-01-05] MEDS: PANTOPRAZOLE SODIUM 40 MG TABLET.DR PO SCH (05:08)
[2020-01-05] MEDS: ACETAMINOPHEN 325 MG TABLET PO PRN ×2 (12:28→22:33)
[2020-01-05] MEDS: VALSARTAN 160 MG TABLET PO SCH (12:31)
[2020-01-05] MEDS: ENOXAPARIN SODIUM INJ 40 MG/0.4 ML DISP.SYRIN SUBCUT SCH (12:31)
[2020-01-05] MEDS: CARVEDILOL 12.5 MG TABLET PO SCH ×2 (12:31→21:08)
[2020-01-05] MEDS: CARBAMAZEPINE 200 MG TABLET PO SCH ×2 (12:32→21:08)
[2020-01-05] MEDS: PRIMIDONE 50 MG TABLET PO SCH ×3 (12:32→18:54)
--- NOTE | 2020-01-05 14:21 | RADIOLOGY REPORT (SQ) ---
EXAM DESCRIPTION: PICC INSERTION IMAGES COMPLETED DATE/TIME: 01/05/2020 2:00 pm REASON FOR STUDY: iv access COMPARISON: None. FLUOROSCOPY TIME: 43 seconds 1 images saved to PACS. TECHNIQUE: Fluoroscopic and ultrasound guided PICC placement. LIMITATIONS: None. PROCEDURE: After written consent and assessment were obtained, the patient was brought into the fluo roscopy room and placed supine on the table. Ultrasound evaluation of potential access sites were per formed. After successfully identifying a patent right upper arm brachiocephalic vein, the right arm w as prepped and draped in a sterile fashion along with the ultrasound probe. The entry site was anesth etized with 1% lidocaine. A 21 gauge 7 cm needle was advanced through the skin and into the brachioce phalic vein under live ultrasound guidance. An ultrasound image was saved to PACS confirming access site. A .018 guide wire was then inserted through the needle and into the venous system. The needle was then removed and an 11 blade scalpel was used to make a 1cm skin incision. A 5 fr peel-away boone th was advanced over the wire and into the venous system. A measurement was then made using the exist ing wire and live fluoroscopic guidance. The wire was then removed and trimmed. The PICC was advanced through the peel-away sheath and into the venous system. The peel-away sheath was removed and the ca theter was adhered to the patients arm with a stat lock. The catheter was then aspirated and flushed and a sterile bandage was placed over the access site. A fluoroscopic spot image was saved to PACS c onfirming the catheter tip within the SVC. IMPRESSION: SUCCESSFUL PLACEMENT OF A 5 FR DUAL LUMEN 37 CM PICC IN THE RIGHT BRACHIOCEPHALIC VEIN. COMMENT: Patient medication list reviewed: Yes- Quality ID# [id number]:Eligible professional attests to doc umenting in the medical record they obtained, updated, or reviewed the patient's current medications. . Quality ID 145: Final reports for procedures using fluoroscopy that document radiation exposure susan bernardo, or exposure time and number of fluorographic images (if radiation exposure indices are not avail able) Quality ID #76: The patient was prepped and draped using maximum sterile barrier technique including cap, mask, sterile gown, sterile gloves, a large sterile sheet, hand hygiene, and 2% Chlorhexidine fo r cutaneous antisepsis. When ultrasound is used, sterile ultrasound techniques are followed requiring sterile gel and sterile probes. TECHNICAL DOCUMENTATION: JOB ID: [id number] 2010 [employer]- All Rights Reserved rev Reading location - IP/workstation name: [email or web address]
[2020-01-05] MEDS: NORMAL SALINE 1000 ML 1,000 ML IV PRN ×2 (15:53→20:00)
[2020-01-05] MEDS ORDERED: LEVOFLOXACIN 250 MG/D5W RTU 250 MG/50 ML RTUPB IV ONE (19:00)
--- NOTE | 2020-01-05 20:17 | PDOC PROGRESS REPORT ---
Subjective Progress Note for:: 01/05/20 Subjective:: Patient denied any chest pain or difficulty with breathing. No significant coughing or sputum production. No nausea, vomiting, abdominal pain, or diarrhea. PO intake remain a challenge. No fever or chills. Reason For Visit: TOXIC METABOLIC ENCEPHALOPATHY,ACUTE DELIRIUM, Physical Exam Vital Signs: Temp Pulse Resp BP Pulse Ox 98.6 F 77 20 113/55 L 97 01/05/20 19:48 01/05/20 19:48 01/05/20 19:39 01/05/20 19:48 01/05/20 19:48 Intake & Output 01/04/20 01/05/20 01/06/20 06:59 06:59 06:59 Intake Total 1850 1075 960 Output Total 525 500 Balance 1850 550 460 Weight 80 kg 82 kg Physical Exam: General appearance: PRESENT: no acute distress Head exam: PRESENT: atraumatic, normocephalic Eye exam: PRESENT: conjunctiva pink. ABSENT: pallor, sclera icterus Respiratory exam: PRESENT: clear to auscultation ulysses, decreased breath sounds - at lung bases Cardiovascular exam: PRESENT: RRR, +S1, +S2. ABSENT: diastolic murmur, rubs, systolic murmur GI/Abdominal exam: PRESENT: normal bowel sounds, soft. ABSENT: tenderness Extremities exam: PRESENT: Left upper extremity breast cancer and mastectomy related lymphedema, extremities worsening edema. Neurological exam: PRESENT: alert, awake, oriented to person, oriented to place, oriented to situation Skin exam: PRESENT: dry, warm Results Laboratory Results: 01/04/20 14:00 01/04/20 14:00 12/27/19 12/27/19 10:00 10:00 Creatine Kinase < 20 L Troponin I < 0.012 NT-Pro-B Natriuret Pep 14348 H Impressions: Head CT 12/27/19 09:25 IMPRESSION: CHRONIC CHANGES OF ATROPHY AND MICROVASCULAR ISCHEMIA. NO ACUTE PROCESS. EVIDENCE OF ACUTE STROKE: NO. Cervical Spine CT 12/27/19 09:27 IMPRESSION: CHRONIC DEGENERATIVE CHANGES. NO ACUTE FINDINGS. ENLARGED RIGHT LOBE OF THE THYROID. Chest X-Ray 01/04/20 00:00 IMPRESSION: Similar small amount of left basilar airspace disease. No significant pleural effusion. PICC Line Insertion 01/05/20 00:00 IMPRESSION: SUCCESSFUL PLACEMENT OF A 5 FR DUAL LUMEN 37 CM PICC IN THE RIGHT BRACHIOCEPHALIC VEIN. Assessment & Plan - Diagnosis (1) Toxic metabolic encephalopathy Is this a current diagnosis for this admission?: Yes (2) Acute hypoactive delirium due to multiple etiologies Is this a current diagnosis for this admission?: Yes (3) Acute on chronic systolic CHF (congestive heart failure) Is this a current diagnosis for this admission?: Yes Plan: Add IV Furosemide 20 mg daily. Decrease IV fluid infusion rate to KVO at 20 ml/hour. Monitor fluid balance and renal indices. (4) HTN (hypertension) Qualifiers: Hypertension type: essential hypertension Qualified Code(s): I10 - Essential (primary) hypertension Is this a current diagnosis for this admission?: Yes (5) MEHDI (acute kidney injury) Is this a current diagnosis for this admission?: Yes (6) CAD (coronary artery disease) Qualifiers: Coronary Disease-Associated Artery/Lesion type: [place] artery [place] vs. transplanted heart: [place] heart Associated angina: with unstable angina Qualified Code(s): I25.110 - Atherosclerotic heart disease of [place] coronary artery with unstable angina pectoris Is this a current diagnosis for this admission?: Yes (7) Hyperlipidemia Qualifiers: Hyperlipidemia type: unspecified Qualified Code(s): E78.5 - Hyperlipidemia, unspecified Is this a current diagnosis for this admission?: Yes (8) COPD (chronic obstructive pulmonary disease) Qualifiers: COPD type: unspecified COPD Qualified Code(s): J44.9 - Chronic obstructive pulmonary disease, unspecified Is this a current diagnosis for this admission?: Yes (9) Essential tremor Is this a current diagnosis for this admission?: Yes (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 Add IV Cefepime 1 gm q12 hours in view of her worsening leukocytosis. - Time Time Spent with patient: 25-34 minutes Level of Care: IMCU Medications reviewed and adjusted accordingly: Yes Anticipated discharge: Home with Homehealth Anticipated DC Timeframe: within 72 hours - Inpatient Certification Based on my medical assessment, after consideration of the patient's comorbidities, presenting symptoms, or acuity I expect that the services needed warrant INPATIENT care.: Yes I certify that my determination is in accordance with my understanding of Medicare's requirements for reasonable and necessary INPATIENT services [42 CFR 412.3e].: Yes Medical Necessity: Significant Comorbidiites Make Outpatient Treatment Too Risky, Need Close Monitoring Due to Risk of Patient Decompensation, Need For IV Fluids, Need For Continuous Telemetry Monitoring, Need for IV Antibiotics, Risk of Complication if Not Cared For in Hospital, Risk of Diagnosis Which Will Requi re Inpatient Eval/Care/Monitoring Post Hospital Care: D/C Health Informatics Advisor Documentation - Plan Summary Plan Summary: See attending orders for details about care plan. Overall prognosis remain very poor and she remain on DNI status. I had extensive discussion with daughter at bedside with request for hospital bed, anne marie lift, [employer] ATTEND[employer] services upon discharge home.
[2020-01-05] MEDS: ATORVASTATIN CALCIUM 20 MG TABLET PO SCH (21:08)
[2020-01-05] MEDS: SERTRALINE HCL 50 MG TABLET PO SCH (21:08)
[2020-01-05] MEDS: CEFEPIME 1 GM/D5W RTU 1 GM/50 ML RTUPB IV SCH (21:09)
[2020-01-05] MEDS: FUROSEMIDE 20 MG TABLET PO SCH (21:10)
[2020-01-05] MEDS ORDERED: VANCOMYCIN HCL 1,500 MG in DEXTROSE 5%-WATER 250 ML IV SCH (22:00)
[2020-01-06] MEDS: ACETAMINOPHEN 325 MG TABLET PO PRN ×2 (05:03→17:18)
[2020-01-06] MEDS: PANTOPRAZOLE SODIUM 40 MG TABLET.DR PO SCH (05:03)
[2020-01-06] MEDS ORDERED: NORMAL SALINE 10 ML SDV (AFTER EACH USE) IV PRN (05:30)
[2020-01-06 06:30] LABS: ABSOLUTE EOSINOPHILS # (AUTO) 0.1 10^3/uL (0.0-0.6); ABSOLUTE LYMPHOCYTES (AUTO) 1.3 10^3/uL (0.5-4.7); ABSOLUTE MONOCYTES (AUTO) 1.4 10^3/uL (0.1-1.4); BASOPHILS % (AUTO) 0.2 % (0-2); EOSINOPHILS % (AUTO) 0.5 % (0-6); HEMATOCRIT 30.6 % (36.0-47.0); HEMOGLOBIN 9.6 g/dL (12.0-15.5); LYMPHOCYTES % (AUTO) 7.9 % (13-45); MEAN CORPUSCULAR HEMOGLOBIN 26.1 pg (27.0-33.4); MEAN CORPUSCULAR HGB CONC 31.4 g/dL (32.0-36.0); MEAN CORPUSCULAR VOLUME 83 fl (80-97); MONOCYTES % (AUTO) 8.4 % (3-13); PLATELET COUNT 221 10^3/uL (150-450); RED BLOOD COUNT 3.68 10^6/uL (3.72-5.28); RED CELL DISTRIBUTION WIDTH 18.9 % (11.5-14.0); TOTAL CELLS COUNTED % (AUTO) 100 %; WHITE BLOOD COUNT 16.9 10^3/uL (4.0-10.5)
[2020-01-06] MEDS: TRAMADOL HCL 50 MG TABLET PO PRN ×3 (06:48→19:23)
[2020-01-06 06:56] LABS: ALBUMIN 1.6 g/dL (3.5-5.0); ALKALINE PHOSPHATASE 103 U/L (38-126); ANION GAP 11 (5-19); ASPARTATE AMINO TRANSFERASE 13 U/L (14-36); BILIRUBIN,DIRECT 0.2 mg/dL (0.0-0.4); BILIRUBIN,TOTAL 0.2 mg/dL (0.2-1.3); BLOOD UREA NITROGEN 33 mg/dL (7-20); CALCIUM 7.3 mg/dL (8.4-10.2); CARBON DIOXIDE 14 mmol/L (22-30); CHLORIDE 114 mmol/L (98-107); GLUCOSE 102 mg/dL (75-110); POTASSIUM 3.6 mmol/L (3.6-5.0); TOTAL PROTEIN 3.7 g/dL (6.3-8.2)
[2020-01-06] MEDS: VALSARTAN 160 MG TABLET PO SCH (10:07)
[2020-01-06] MEDS: CEFEPIME 1 GM/D5W RTU 1 GM/50 ML RTUPB IV SCH ×2 (10:07→21:08)
[2020-01-06] MEDS: CARVEDILOL 12.5 MG TABLET PO SCH ×2 (10:07→21:09)
[2020-01-06] MEDS: CARBAMAZEPINE 200 MG TABLET PO SCH ×2 (10:08→21:13)
[2020-01-06] MEDS: PRIMIDONE 50 MG TABLET PO SCH ×3 (10:08→17:19)
[2020-01-06] MEDS: ENOXAPARIN SODIUM INJ 40 MG/0.4 ML DISP.SYRIN SUBCUT SCH (10:08)
[2020-01-06] MEDS: NORMAL SALINE 10 ML SDV (SCHEDULED) IV SCH ×2 (10:12→21:09)
[2020-01-06] MEDS: FUROSEMIDE 20 MG TABLET PO SCH (10:23)
--- NOTE | 2020-01-06 17:04 | Progress Note ---
Provider Note Provider Note: [facility] ID Telephone Advice Chart reviewed. Patient not examined. Patient is a 84-year-old woman with multiple comorbid conditions including CAD, CHF, COPD, valvular heart disease, hypertension who was admitted on 12/26 due to altered mental status. She was recently admitted to the hospital for congestive heart failure management. After discharge, she started presenting confusion and was brought to the hospital. She had leukocytosis of 15k on admission and CXR demonstrated a left lower lobe opacity. She was started on vancomycin, levaquin, she also received zosyn. Repeat CXR redemonstrated LLL opacity. She is on 3lpm NC with oxygen saturation 99-100%, per notes no significant shortness of breath or cough. CT scan of the brain was negative for any acute process. She continues with altered mental status and leukocytosis. The highest WBC was 20k yesterday, today improved to 16k. ID consulted for antimicrobial stewardship. Allergies: promethazine HCl [From Phenergan] Allergy (Verified 12/07/18 14:57) Medications: Carbamazepine [Tegretol 200 mg Tablet] 200 mg PO Q12 03/06/19 Carvedilol [Coreg 25 mg Tablet] 25 mg PO Q12 03/06/19 Donepezil HCl [Aricept 5 mg Tablet] 5 mg PO QHS 03/06/19 Ferrous Sulfate [Iron] 325 mg PO DAILY 03/06/19 Polyethylene Glycol 3350 [Miralax Powder 17 gm/Packet] 1 packet PO DAILY 03/06/19 Primidone [Mysoline 50 mg Tablet] 100 mg PO TID 03/06/19 Rosuvastatin Calcium [Crestor 10 mg Tablet] 10 mg PO QHS 03/06/19 Sertraline HCl [Zoloft 50 mg Tablet] 50 mg PO QHS 03/06/19 Sucralfate [Carafate 1 gm Tablet] 1 gm PO ACHS 03/06/19 Famotidine [Pepcid 20 mg Tablet] 40 mg PO QHS 11/20/19 Psyllium Husk (with Sugar) [Metamucil Packet] 1 packet PO BID 11/20/19 Sacubitril/Valsartan [Entresto 24 mg/26 mg Tablet] 1 tab PO Q12 12/28/19 Tramadol HCl [Ultram 50 mg Tablet] 50 mg PO Q6HP PRN 12/28/19 Vital Signs: Temp Pulse Resp BP Pulse Ox 97.9 F 76 18 121/75 100 01/06/20 12:18 01/06/20 12:18 01/06/20 12:18 01/06/20 12:18 01/06/20 12:18 Intake & Output 01/05/20 01/06/20 01/07/20 06:59 06:59 06:59 Intake Total 1075 1866 50 Output Total 525 775 Balance 550 1091 50 Weight 82 kg 81 kg Weight/Height Weight 81 kg Height 5 ft 10 in Laboratories: 01/06/20 05:15 01/06/20 05:15 MCV 83 fl (80-97) 01/06/20 05:15 MCH 26.1 pg (27.0-33.4) L 01/06/20 05:15 MCHC 31.4 g/dL (32.0-36.0) L 01/06/20 05:15 RDW 18.9 % (11.5-14.0) H 01/06/20 05:15 Seg Neutrophils % 83.0 % (42-78) H 01/06/20 05:15 Chloride 114 mmol/L (98-107) H 01/06/20 05:15 Carbon Dioxide 14 mmol/L (22-30) L 01/06/20 05:15 Anion Gap 11 (5-19) 01/06/20 05:15 Est GFR ( Amer) 35 (>60) L 01/06/20 05:15 Glucose 102 mg/dL (75-110) 01/06/20 05:15 Lactic Acid 1.2 mmol/L (0.7-2.1) 12/27/19 10:00 Calcium 7.3 mg/dL (8.4-10.2) L 01/06/20 05:15 Total Bilirubin 0.2 mg/dL (0.2-1.3) 01/06/20 05:15 AST 13 U/L (14-36) L 01/06/20 05:15 Alkaline Phosphatase 103 U/L (38-126) 01/06/20 05:15 Total Protein 3.7 g/dL (6.3-8.2) L 01/06/20 05:15 Albumin 1.6 g/dL (3.5-5.0) L 01/06/20 05:15 TSH 3.05 uIU/mL (0.47-4.68) 12/27/19 10:00 Urine Color YELLOW 01/04/20 13:36 Urine Appearance SLIGHTLY-CLOUDY 01/04/20 13:36 Urine pH 5.0 (5.0-9.0) 01/04/20 13:36 Ur Specific [place] 1.021 01/04/20 13:36 Urine Protein 30 mg/dL (NEGATIVE) H 01/04/20 13:36 Urine Glucose (UA) NEGATIVE mg/dL (NEGATIVE) 01/04/20 13:36 Urine Ketones NEGATIVE mg/dL (NEGATIVE) 01/04/20 13:36 Urine Blood NEGATIVE (NEGATIVE) 01/04/20 13:36 Urine Nitrite NEGATIVE (NEGATIVE) 01/04/20 13:36 Ur Leukocyte Esterase NEGATIVE (NEGATIVE) 01/04/20 13:36 Urine WBC (Auto) 3 /HPF 01/04/20 13:36 Urine RBC (Auto) 4 /HPF 01/04/20 13:36 Stool Occult Blood POSITIVE (NEGATIVE) 12/29/19 13:17 Blood Type O NEGATIVE 12/29/19 10:44 Antibody Screen POSITIVE 12/29/19 10:44 01/04/20 13:36 Catheterized Urine Urine Culture - Final NO GROWTH 2 DAYS 12/27/19 12/27/19 10:00 10:00 Creatine Kinase < 20 L Troponin I < 0.012 NT-Pro-B Natriuret Pep 09955 H Microbiology: Blood culture 12/26 Negative Urine Culture 01/03 NGTD Radiology: Head CT 12/27/19 09:25 IMPRESSION: CHRONIC CHANGES OF ATROPHY AND MICROVASCULAR ISCHEMIA. NO ACUTE PROCESS. EVIDENCE OF ACUTE STROKE: NO. Cervical Spine CT 12/27/19 09:27 IMPRESSION: CHRONIC DEGENERATIVE CHANGES. NO ACUTE FINDINGS. ENLARGED RIGHT LOBE OF THE THYROID. Chest X-Ray 01/04/20 00:00 IMPRESSION: Similar small amount of left basilar airspace disease. No significant pleural effusion. PICC Line Insertion 01/05/20 00:00 IMPRESSION: SUCCESSFUL PLACEMENT OF A 5 FR DUAL LUMEN 37 CM PICC IN THE RIGHT BRACHIOCEPHALIC VEIN. Assessment and Recommendations: Case evaluated for antibiotic recommendations in the setting of worsening leukocytosis, left lower lobe infiltrate and recent hospital admission. Per labs and imaging she has hospital acquired pneumonia but clinically she is not coughing. She is still on 3L NC, but she has COPD and CHF, with significantly elevated BNP. It is reasonable to cover for HAP, but I believe that part of the leukocytosis is due to CHF. Her GFR has decreased probably due to vancomycin. Can do MRSA screen if negative, will recommend to discontinue vancomycin. It is unlikely to have MRSA pneumonia without cough or significant respiratory secretions. I would be more concerned about Gram negative organisms. She was on levaquin without significant improvement, there are concerns for other organisms like Acinetobacter, although patients will usually have more respiratory secretions and worsening imaging. Her WBC is better today. She has received about 10 days of levofloxacin, can discontinue. Cefepime will cover most GNR although it may worsen encephalopathy. Consider respiratory culture and CT scan of the chest if no improvement as there may be risk of parapneumonic effusion or empyema requiring drainage. A total of 14 days of antibiotics recommended (4 more days). Please call if questions. Aleshia Ventura MD [facility] [phone]
[2020-01-06] MEDS: SERTRALINE HCL 50 MG TABLET PO SCH (21:08)
[2020-01-06] MEDS: ATORVASTATIN CALCIUM 20 MG TABLET PO SCH (21:08)
[2020-01-06] MEDS ORDERED: NORMAL SALINE 500 ML IV ONE (22:45)
[2020-01-07] MEDS: PANTOPRAZOLE SODIUM 40 MG TABLET.DR PO SCH (05:12)
[2020-01-07 06:17] LABS: ABSOLUTE EOSINOPHILS # (AUTO) 0.2 10^3/uL (0.0-0.6); ABSOLUTE LYMPHOCYTES (AUTO) 1.2 10^3/uL (0.5-4.7); ABSOLUTE MONOCYTES (AUTO) 1.3 10^3/uL (0.1-1.4); ABSOLUTE NEUT (AUTO) 11.3 10^3/uL (1.7-8.2); BASOPHILS % (AUTO) 0.1 % (0-2); EOSINOPHILS % (AUTO) 1.8 % (0-6); HEMATOCRIT 32.1 % (36.0-47.0); HEMOGLOBIN 10.2 g/dL (12.0-15.5); LYMPHOCYTES % (AUTO) 8.5 % (13-45); MEAN CORPUSCULAR HEMOGLOBIN 26.4 pg (27.0-33.4); MEAN CORPUSCULAR HGB CONC 31.8 g/dL (32.0-36.0); MEAN CORPUSCULAR VOLUME 83 fl (80-97); MONOCYTES % (AUTO) 9.2 % (3-13); PLATELET COUNT 245 10^3/uL (150-450); RED BLOOD COUNT 3.86 10^6/uL (3.72-5.28); RED CELL DISTRIBUTION WIDTH 19.4 % (11.5-14.0); SEGMENTED NEUTROPHILS % (AUTO) 80.4 % (42-78); TOTAL CELLS COUNTED % (AUTO) 100 %; WHITE BLOOD COUNT 14.1 10^3/uL (4.0-10.5)
[2020-01-07 06:31] LABS: ALBUMIN 1.8 g/dL (3.5-5.0); ALKALINE PHOSPHATASE 109 U/L (38-126); ANION GAP 12 (5-19); ASPARTATE AMINO TRANSFERASE 15 U/L (14-36); BILIRUBIN,DIRECT 0.2 mg/dL (0.0-0.4); BILIRUBIN,TOTAL 0.2 mg/dL (0.2-1.3); BLOOD UREA NITROGEN 37 mg/dL (7-20); CALCIUM 7.5 mg/dL (8.4-10.2); CARBON DIOXIDE 13 mmol/L (22-30); CHLORIDE 113 mmol/L (98-107); GLUCOSE 83 mg/dL (75-110); POTASSIUM 3.8 mmol/L (3.6-5.0); TOTAL PROTEIN 4.3 g/dL (6.3-8.2)
[2020-01-07] MEDS: ACETAMINOPHEN 325 MG TABLET PO PRN (07:36)
[2020-01-07] MEDS: TRAMADOL HCL 50 MG TABLET PO PRN ×2 (09:43→21:50)
--- NOTE | 2020-01-07 09:44 | PDOC PROGRESS REPORT ---
Subjective Progress Note for:: 01/06/20 Subjective:: No fever or reported chills. Remain on IV antibiotic coverage. No chest pain or difficulty with breathing. No significant coughing or sputum production. No nausea, vomiting, abdominal pain, or diarrhea. Fluid balance in negative since she was stated on IV Lasix. Reason For Visit: TOXIC METABOLIC ENCEPHALOPATHY,ACUTE DELIRIUM, Physical Exam Vital Signs: Temp Pulse Resp BP Pulse Ox 97.8 F 81 18 126/62 H 100 01/06/20 07:52 01/06/20 07:52 01/06/20 07:52 01/06/20 07:52 01/06/20 07:52 Intake & Output 01/05/20 01/06/20 01/07/20 06:59 06:59 06:59 Intake Total 1075 1866 50 Output Total 525 775 Balance 550 1091 50 Weight 82 kg 81 kg Physical Exam: General appearance: PRESENT: no acute distress Head exam: PRESENT: atraumatic, normocephalic Eye exam: PRESENT: conjunctiva pink. ABSENT: pallor, sclera icterus Respiratory exam: PRESENT: clear to auscultation ulysses, decreased breath sounds - at lung bases Cardiovascular exam: PRESENT: RRR, +S1, +S2. ABSENT: diastolic murmur, rubs, systolic murmur GI/Abdominal exam: PRESENT: normal bowel sounds, soft. ABSENT: tenderness Extremities exam: PRESENT: Left upper extremity breast cancer and mastectomy related lymphedema, extremities worsening edema. Neurological exam: PRESENT: alert, awake, oriented to person, oriented to place, oriented to situation Skin exam: PRESENT: dry, warm Results Laboratory Results: 01/06/20 05:15 01/06/20 05:15 01/06/20 01/06/20 05:15 05:15 WBC 16.9 H RBC 3.68 L Hgb 9.6 L Hct 30.6 L MCV 83 MCH 26.1 L MCHC 31.4 L RDW 18.9 H Plt Count 221 Seg Neutrophils % 83.0 H Sodium 138.9 Potassium 3.6 Chloride 114 H Carbon Dioxide 14 L Anion Gap 11 BUN 33 H Creatinine 1.68 H Est GFR ( Amer) 35 L Glucose 102 Calcium 7.3 L Total Bilirubin 0.2 AST 13 L Alkaline Phosphatase 103 Total Protein 3.7 L Albumin 1.6 L 01/04/20 13:36 Catheterized Urine Urine Culture - Final NO GROWTH 2 DAYS 12/27/19 12/27/19 10:00 10:00 Creatine Kinase < 20 L Troponin I < 0.012 NT-Pro-B Natriuret Pep 52796 H Impressions: Head CT 12/27/19 09:25 IMPRESSION: CHRONIC CHANGES OF ATROPHY AND MICROVASCULAR ISCHEMIA. NO ACUTE PROCESS. EVIDENCE OF ACUTE STROKE: NO. Cervical Spine CT 12/27/19 09:27 IMPRESSION: CHRONIC DEGENERATIVE CHANGES. NO ACUTE FINDINGS. ENLARGED RIGHT LOBE OF THE THYROID. Chest X-Ray 01/04/20 00:00 IMPRESSION: Similar small amount of left basilar airspace disease. No significant pleural effusion. PICC Line Insertion 01/05/20 00:00 IMPRESSION: SUCCESSFUL PLACEMENT OF A 5 FR DUAL LUMEN 37 CM PICC IN THE RIGHT BRACHIOCEPHALIC VEIN. Assessment & Plan - Diagnosis (1) Toxic metabolic encephalopathy Is this a current diagnosis for this admission?: Yes (2) Acute hypoactive delirium due to multiple etiologies Is this a current diagnosis for this admission?: Yes (3) Acute on chronic systolic CHF (congestive heart failure) Is this a current diagnosis for this admission?: Yes (4) HTN (hypertension) Qualifiers: Hypertension type: essential hypertension Qualified Code(s): I10 - Essential (primary) hypertension Is this a current diagnosis for this admission?: Yes (5) MEHDI (acute kidney injury) Is this a current diagnosis for this admission?: Yes (6) CAD (coronary artery disease) Qualifiers: Coronary Disease-Associated Artery/Lesion type: [place] artery [place] vs. transplanted heart: [place] heart Associated angina: with unstable angina Qualified Code(s): I25.110 - Atherosclerotic heart disease of [place] coronary artery with unstable angina pectoris Is this a current diagnosis for this admission?: Yes (7) Hyperlipidemia Qualifiers: Hyperlipidemia type: unspecified Qualified Code(s): E78.5 - Hyperlipidemia, unspecified Is this a current diagnosis for this admission?: Yes (8) COPD (chronic obstructive pulmonary disease) Qualifiers: COPD type: unspecified COPD Qualified Code(s): J44.9 - Chronic obstructive pulmonary disease, unspecified Is this a current diagnosis for this admission?: Yes (9) Essential tremor Is this a current diagnosis for this admission?: Yes (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 Is this a current diagnosis for this admission?: Yes (11) Anemia due to chronic blood loss Is this a current diagnosis for this admission?: Yes (12) Left lower lobe consolidation Is this a current diagnosis for this admission?: Yes - Time Time Spent with patient: 25-34 minutes Level of Care: IMCU Medications reviewed and adjusted accordingly: Yes Anticipated discharge: Home with Homehealth Anticipated DC Timeframe: within 72 hours - Inpatient Certification Based on my medical assessment, after consideration of the patient's comorbidities, presenting symptoms, or acuity I expect that the services needed warrant INPATIENT care.: Yes I certify that my determination is in accordance with my understanding of Medicare's requirements for reasonable and necessary INPATIENT services [42 CFR 412.3e].: Yes Medical Necessity: Significant Comorbidiites Make Outpatient Treatment Too Risky, Need Close Monitoring Due to Risk of Patient Decompensation, Need For Continuous Telemetry Monitoring, Need for IV Antibiotics, Risk of Complication if Not Cared For in Hospital, Risk of Diagnosis Which Will Require Inpatient Eval/Care/Monitoring Post Hospital Care: D/C [employer] Documentation - Plan Summary Plan Summary: Continue current medication management. Obtain NT-Pro BNP, CBC with diff, and CMP in AM.
[2020-01-07] MEDS: CARVEDILOL 12.5 MG TABLET PO SCH ×2 (10:07→21:45)
[2020-01-07] MEDS: CEFEPIME 1 GM/D5W RTU 1 GM/50 ML RTUPB IV SCH ×2 (10:09→21:44)
[2020-01-07] MEDS: ENOXAPARIN SODIUM INJ 40 MG/0.4 ML DISP.SYRIN SUBCUT SCH (10:10)
[2020-01-07] MEDS: PRIMIDONE 50 MG TABLET PO SCH ×3 (10:11→17:37)
[2020-01-07] MEDS: VALSARTAN 160 MG TABLET PO SCH (10:15)
[2020-01-07] MEDS: FUROSEMIDE 20 MG TABLET PO SCH (10:15)
[2020-01-07] MEDS: CARBAMAZEPINE 200 MG TABLET PO SCH ×2 (10:16→21:44)
[2020-01-07] MEDS: NORMAL SALINE 10 ML SDV (SCHEDULED) IV SCH ×2 (10:16→21:44)
[2020-01-07] MEDS: NORMAL SALINE 1000 ML 1,000 ML IV PRN (21:43)
[2020-01-07] MEDS: SERTRALINE HCL 50 MG TABLET PO SCH (21:44)
[2020-01-07] MEDS: ATORVASTATIN CALCIUM 20 MG TABLET PO SCH (21:44)
[2020-01-08] MEDS: TRAMADOL HCL 50 MG TABLET PO PRN ×3 (05:55→18:26)
[2020-01-08] MEDS: PANTOPRAZOLE SODIUM 40 MG TABLET.DR PO SCH (05:55)
[2020-01-08] MEDS: PRIMIDONE 50 MG TABLET PO SCH ×3 (10:08→17:45)
[2020-01-08] MEDS: CARVEDILOL 12.5 MG TABLET PO SCH ×2 (10:08→21:42)
[2020-01-08] MEDS: FUROSEMIDE 20 MG TABLET PO SCH (10:08)
[2020-01-08] MEDS: VALSARTAN 160 MG TABLET PO SCH (10:08)
[2020-01-08] MEDS: CARBAMAZEPINE 200 MG TABLET PO SCH ×2 (10:08→22:42)
[2020-01-08] MEDS: ENOXAPARIN SODIUM INJ 40 MG/0.4 ML DISP.SYRIN SUBCUT SCH (10:09)
[2020-01-08] MEDS: NORMAL SALINE 10 ML SDV (SCHEDULED) IV SCH ×2 (10:09→21:51)
[2020-01-08] MEDS: CEFEPIME 1 GM/D5W RTU 1 GM/50 ML RTUPB IV SCH ×2 (10:09→21:45)
[2020-01-08] MEDS: ACETAMINOPHEN 325 MG TABLET PO PRN (14:38)
--- NOTE | 2020-01-08 18:08 | PDOC PROGRESS REPORT ---
Subjective Progress Note for:: 01/07/20 Subjective:: No chest pain or difficulty with breathing. No fever or reported chills. No nausea, vomiting, abdominal pain, or diarrhea. P.O intake remain a challenge. Reason For Visit: TOXIC METABOLIC ENCEPHALOPATHY,ACUTE DELIRIUM, Physical Exam Vital Signs: Temp Pulse Resp BP Pulse Ox 97.7 F 69 16 103/53 L 91 L 01/07/20 11:17 01/07/20 14:00 01/07/20 11:17 01/07/20 11:17 01/07/20 11:17 Intake & Output 01/06/20 01/07/20 01/08/20 06:59 06:59 06:59 Intake Total 1866 780 60 Output Total 775 225 90 Balance 1091 555 -30 Weight 81 kg 85.4 kg Physical Exam: General appearance: PRESENT: no acute distress Head exam: PRESENT: atraumatic, normocephalic Eye exam: PRESENT: conjunctiva pink. ABSENT: pallor, sclera icterus Respiratory exam: PRESENT: clear to auscultation ulysses, decreased breath sounds - at lung bases Cardiovascular exam: PRESENT: RRR, +S1, +S2. ABSENT: diastolic murmur, rubs, systolic murmur GI/Abdominal exam: PRESENT: normal bowel sounds, soft. ABSENT: tenderness Extremities exam: PRESENT: Left upper extremity breast cancer and mastectomy related lymphedema, extremities worsening edema. Neurological exam: PRESENT: alert, awake, oriented to person, oriented to place, oriented to situation Skin exam: PRESENT: dry, warm Results Laboratory Results: 01/07/20 05:15 01/07/20 05:15 01/07/20 01/07/20 05:15 05:15 WBC 14.1 H RBC 3.86 Hgb 10.2 L Hct 32.1 L MCV 83 MCH 26.4 L MCHC 31.8 L RDW 19.4 H Plt Count 245 Seg Neutrophils % 80.4 H Sodium 137.9 Potassium 3.8 Chloride 113 H Carbon Dioxide 13 L Anion Gap 12 BUN 37 H Creatinine 1.86 H Est GFR ( Amer) 31 L Glucose 83 Calcium 7.5 L Total Bilirubin 0.2 AST 15 Alkaline Phosphatase 109 Total Protein 4.3 L Albumin 1.8 L 12/27/19 12/27/19 01/07/20 10:00 10:00 05:15 Creatine Kinase < 20 L Troponin I < 0.012 NT-Pro-B Natriuret Pep 40457 H 09624 H Impressions: Head CT 12/27/19 09:25 IMPRESSION: CHRONIC CHANGES OF ATROPHY AND MICROVASCULAR ISCHEMIA. NO ACUTE PROCESS. EVIDENCE OF ACUTE STROKE: NO. Cervical Spine CT 12/27/19 09:27 IMPRESSION: CHRONIC DEGENERATIVE CHANGES. NO ACUTE FINDINGS. ENLARGED RIGHT LOBE OF THE THYROID. Chest X-Ray 01/04/20 00:00 IMPRESSION: Similar small amount of left basilar airspace disease. No significant pleural effusion. PICC Line Insertion 01/05/20 00:00 IMPRESSION: SUCCESSFUL PLACEMENT OF A 5 FR DUAL LUMEN 37 CM PICC IN THE RIGHT BRACHIOCEPHALIC VEIN. Assessment & Plan - Diagnosis (1) Toxic metabolic encephalopathy Is this a current diagnosis for this admission?: Yes (2) Acute hypoactive delirium due to multiple etiologies Is this a current diagnosis for this admission?: Yes (3) Acute on chronic systolic CHF (congestive heart failure) Is this a current diagnosis for this admission?: Yes (4) HTN (hypertension) Qualifiers: Hypertension type: essential hypertension Qualified Code(s): I10 - Essential (primary) hypertension Is this a current diagnosis for this admission?: Yes (5) MEHDI (acute kidney injury) Is this a current diagnosis for this admission?: Yes (6) CAD (coronary artery disease) Qualifiers: Coronary Disease-Associated Artery/Lesion type: [place] artery [place] vs. transplanted heart: [place] heart Associated angina: with unstable angina Qu alified Code(s): I25.110 - Atherosclerotic heart disease of [place] coronary artery with unstable angina pectoris Is this a current diagnosis for this admission?: Yes (7) Hyperlipidemia Qualifiers: Hyperlipidemia type: unspecified Qualified Code(s): E78.5 - Hyperlipidemia, unspecified Is this a current diagnosis for this admission?: Yes (8) COPD (chronic obstructive pulmonary disease) Qualifiers: COPD type: unspecified COPD Qualified Code(s): J44.9 - Chronic obstructive pulmonary disease, unspecified Is this a current diagnosis for this admission?: Yes (9) Essential tremor Is this a current diagnosis for this admission?: Yes (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 Is this a current diagnosis for this admission?: Yes (11) Anemia due to chronic blood loss Is this a current diagnosis for this admission?: Yes (12) Left lower lobe consolidation Is this a current diagnosis for this admission?: Yes - Time Time Spent with patient: 25-34 minutes Level of Care: IMCU Medications reviewed and adjusted accordingly: Yes Anticipated discharge: Home with Homehealth Anticipated DC Timeframe: within 72 hours - Inpatient Certification Based on my medical assessment, after consideration of the patient's comorbidities, presenting symptoms, or acuity I expect that the services needed warrant INPATIENT care.: Yes I certify that my determination is in accordance with my understanding of Medicare's requirements for reasonable and necessary INPATIENT services [42 CFR 412.3e].: Yes Medical Necessity: Significant Comorbidiites Make Outpatient Treatment Too Risky, Need Close Monitoring Due to Risk of Patient Decompensation, Need For Continuous Telemetry Monitoring, Need for IV Antibiotics, Risk of Complication if Not Cared For in Hospital, Risk of Diagnosis Which Will Require Inpatient Eval/Care/Monitoring Post Hospital Care: D/C Gut Cleaner Documentation - Plan Summary Plan Summary: Continue current medication management.
--- NOTE | 2020-01-08 18:25 | PDOC PROGRESS REPORT ---
Subjective Progress Note for:: 01/08/20 Subjective:: Patient denied any chest pain or difficulty with breathing. No fever or reported chills. No nausea, vomiting, abdominal pain, or diarrhea. P.O intake remain a challenge. Reason For Visit: TOXIC METABOLIC ENCEPHALOPATHY,ACUTE DELIRIUM, Physical Exam Vital Signs: Temp Pulse Resp BP Pulse Ox 97.9 F 70 16 113/47 L 100 01/08/20 08:45 01/08/20 14:00 01/08/20 03:17 01/08/20 03:17 01/08/20 03:17 Intake & Output 01/07/20 01/08/20 01/09/20 06:59 06:59 06:59 Intake Total 780 1354 130 Output Total 225 490 150 Balance 555 864 -20 Weight 85.4 kg 84.2 kg Physical Exam: General appearance: PRESENT: no acute distress Head exam: PRESENT: atraumatic, normocephalic Eye exam: PRESENT: conjunctiva pink. ABSENT: pallor, sclera icterus Respiratory exam: PRESENT: clear to auscultation ulysses, decreased breath sounds - at lung bases Cardiovascular exam: PRESENT: RRR, +S1, +S2. ABSENT: diastolic murmur, rubs, systolic murmur GI/Abdominal exam: PRESENT: normal bowel sounds, soft. ABSENT: tenderness Extremities exam: PRESENT: Left upper extremity breast cancer and mastectomy related lymphedema, extremities worsening edema. Neurological exam: PRESENT: alert, awake, oriented to person, oriented to place, oriented to situation Skin exam: PRESENT: dry, warm Results Laboratory Results: 01/07/20 05:15 01/07/20 05:15 12/27/19 12/27/19 01/07/20 10:00 10:00 05:15 Creatine Kinase < 20 L Troponin I < 0.012 NT-Pro-B Natriuret Pep 47082 H 08438 H Impressions: Head CT 12/27/19 09:25 IMPRESSION: CHRONIC CHANGES OF ATROPHY AND MICROVASCULAR ISCHEMIA. NO ACUTE PROCESS. EVIDENCE OF ACUTE STROKE: NO. Cervical Spine CT 12/27/19 09:27 IMPRESSION: CHRONIC DEGENERATIVE CHANGES. NO ACUTE FINDINGS. ENLARGED RIGHT LOBE OF THE THYROID. Chest X-Ray 01/04/20 00:00 IMPRESSION: Similar small amount of left basilar airspace disease. No significant pleural effusion. PICC Line Insertion 01/05/20 00:00 IMPRESSION: SUCCESSFUL PLACEMENT OF A 5 FR DUAL LUMEN 37 CM PICC IN THE RIGHT BRACHIOCEPHALIC VEIN. Assessment & Plan - Diagnosis (1) Toxic metabolic encephalopathy Is this a current diagnosis for this admission?: Yes (2) Acute hypoactive delirium due to multiple etiologies Is this a current diagnosis for this admission?: Yes (3) Acute on chronic systolic CHF (congestive heart failure) Is this a current diagnosis for this admission?: Yes (4) HTN (hypertension) Qualifiers: Hypertension type: essential hypertension Qualified Code(s): I10 - Essential (primary) hypertension Is this a current diagnosis for this admission?: Yes (5) MEHDI (acute kidney injury) Is this a current diagnosis for this admission?: Yes (6) CAD (coronary artery disease) Qualifiers: Coronary Disease-Associated Artery/Lesion type: [place] artery [place] vs. transplanted heart: [place] heart Associated angina: with unstable angina Qualified Code(s): I25.110 - Atherosclerotic heart disease of [place] coronary artery with unstable angina pectoris Is this a current diagnosis for this admission?: Yes (7) Hyperlipidemia Qualifiers: Hyperlipidemia type: unspecified Qualified Code(s): E78.5 - Hyperlipidemia, unspecified Is this a current diagnosis for this admission?: Yes (8) COPD (chronic obstructive pulmonary disease) Qualifiers: COPD type: unspecified COPD Qualified Code(s): J44.9 - Chronic obstructive pulmonary disease, unspecified Is this a current diagnosis for this admission?: Yes (9) Essential tremor Is this a current diagnosis for this admission?: Yes (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 Is this a current diagnosis for this admission?: Yes (11) Anemia due to chronic blood loss Is this a current diagnosis for this admission?: Yes (12) Left lower lobe consolidation Is this a current diagnosis for this admission?: Yes - Time Time Spent with patient: 25-34 minutes Level of Care: IMCU Medications reviewed and adjusted accordingly: Yes Anticipated discharge: Home with Homehealth Anticipated DC Timeframe: within 72 hours - Inpatient Certification Based on my medical assessment, after consideration of the patient's comorbidities, presenting symptoms, or acuity I expect that the services needed warrant INPATIENT care.: Yes I certify that my determination is in accordance with my understanding of Medicare's requirements for reasonable and necessary INPATIENT services [42 CFR 412.3e].: Yes Medical Necessity: Significant Comorbidiites Make Outpatient Treatment Too Risky, Need Close Monitoring Due to Risk of Patient Decompensation, Need For Continuous Telemetry Monitoring, Need for IV Antibiotics, Risk of Complication if Not Cared For in Hospital, Risk of Diagnosis Which Will Require Inpatient Ev al/Care/Monitoring Post Hospital Care: D/C Tie Sawyer Documentation - Plan Summary Plan Summary: Continue IV antibiotic coverage. Obtain CBC with diff and CMP in am. Add Beneprotein powder to her meals.
[2020-01-08] MEDS: SERTRALINE HCL 50 MG TABLET PO SCH (21:44)
[2020-01-08] MEDS: ATORVASTATIN CALCIUM 20 MG TABLET PO SCH (21:44)
[2020-01-09] MEDS: TRAMADOL HCL 50 MG TABLET PO PRN ×2 (04:08→17:48)
[2020-01-09] MEDS: PANTOPRAZOLE SODIUM 40 MG TABLET.DR PO SCH (05:40)
[2020-01-09 10:08] LABS: HEMATOCRIT 34.6 % (36.0-47.0); HEMOGLOBIN 10.8 g/dL (12.0-15.5); MEAN CORPUSCULAR HGB CONC 31.3 g/dL (32.0-36.0); MEAN CORPUSCULAR VOLUME 83 fl (80-97); PLATELET COUNT 281 10^3/uL (150-450); RED BLOOD COUNT 4.17 10^6/uL (3.72-5.28); RED CELL DISTRIBUTION WIDTH 19.4 % (11.5-14.0); WHITE BLOOD COUNT 12.5 10^3/uL (4.0-10.5)
[2020-01-09] MEDS: ENOXAPARIN SODIUM INJ 40 MG/0.4 ML DISP.SYRIN SUBCUT SCH (10:19)
[2020-01-09] MEDS: CEFEPIME 1 GM/D5W RTU 1 GM/50 ML RTUPB IV SCH ×2 (10:19→21:20)
[2020-01-09] MEDS: FUROSEMIDE 20 MG TABLET PO SCH (10:19)
[2020-01-09] MEDS: PRIMIDONE 50 MG TABLET PO SCH ×3 (10:19→17:07)
[2020-01-09] MEDS: CARVEDILOL 12.5 MG TABLET PO SCH ×2 (10:19→21:21)
[2020-01-09] MEDS: CARBAMAZEPINE 200 MG TABLET PO SCH ×2 (10:19→21:22)
[2020-01-09] MEDS: VALSARTAN 160 MG TABLET PO SCH (10:19)
[2020-01-09] MEDS: NORMAL SALINE 10 ML SDV (SCHEDULED) IV SCH ×2 (10:20→21:23)
[2020-01-09 10:24] LABS: ABSOLUTE LYMPHOCYTES# (MANUAL) 1.3 10^3/uL (0.5-4.7); ABSOLUTE MONOCYTES # (MANUAL) 0.4 10^3/uL (0.1-1.4); BAND NEUTROPHILS % (MANUAL) 1 % (3-5); BASOPHILS % (MANUAL) 0 % (0-2); EOSINOPHILS % (MANUAL) 0 % (0-6); LYMPHOCYTES % (MANUAL) 10 % (13-45); MONOCYTES % (MANUAL) 3 % (3-13); SEGMENTED NEUTROPHILS % (MAN) 86 % (42-78); TOTAL CELLS COUNTED 100
[2020-01-09 10:26] LABS: ANISOCYTOSIS 2+; HYPERSEGMENTED NEUTROPHILS PRESENT; PLATELET COMMENT ADEQUATE
[2020-01-09 10:27] LABS: ALBUMIN 1.8 g/dL (3.5-5.0); ALKALINE PHOSPHATASE 119 U/L (38-126); ANION GAP 11 (5-19); ASPARTATE AMINO TRANSFERASE 15 U/L (14-36); BILIRUBIN,DIRECT 0.3 mg/dL (0.0-0.4); BILIRUBIN,TOTAL 0.3 mg/dL (0.2-1.3); BLOOD UREA NITROGEN 43 mg/dL (7-20); CALCIUM 7.8 mg/dL (8.4-10.2); CARBON DIOXIDE 13 mmol/L (22-30); CHLORIDE 114 mmol/L (98-107); GLUCOSE 82 mg/dL (75-110); POTASSIUM 4.1 mmol/L (3.6-5.0); TOTAL PROTEIN 4.5 g/dL (6.3-8.2)
--- NOTE | 2020-01-09 16:00 | PDOC PROGRESS REPORT ---
Subjective Progress Note for:: 01/09/20 Subjective:: No reported chest pain. Observed minimal labored breathing. No fever or reported chills. No nausea or vomiting. P.O intake remain a challenge. Reason For Visit: TOXIC METABOLIC ENCEPHALOPATHY,ACUTE DELIRIUM, Physical Exam Vital Signs: Temp Pulse Resp BP Pulse Ox 97.9 F 90 17 115/53 L 94 01/09/20 07:49 01/09/20 07:49 01/09/20 07:49 01/09/20 07:49 01/09/20 07:49 Intake & Output 01/08/20 01/09/20 01/10/20 06:59 06:59 06:59 Intake Total 1354 240 Output Total 490 580 Balance 864 -340 Weight 84.2 kg 86.9 kg Physical Exam: General appearance: PRESENT: no acute distress Head exam: PRESENT: atraumatic, normocephalic Eye exam: PRESENT: conjunctiva pink. ABSENT: pallor, sclera icterus Respiratory exam: PRESENT: clear to auscultation ulysses, decreased breath sounds - at lung bases Cardiovascular exam: PRESENT: RRR, +S1, +S2. ABSENT: diastolic murmur, rubs, systolic murmur GI/Abdominal exam: PRESENT: normal bowel sounds, soft. ABSENT: tenderness Extremities exam: PRESENT: Left upper extremity breast cancer and mastectomy related lymphedema, extremities worsening edema. Neurological exam: PRESENT: alert, awake, oriented to person, oriented to place, oriented to situation Skin exam: PRESENT: dry, warm Results Laboratory Results: 01/07/20 05:15 01/07/20 05:15 12/27/19 12/27/19 01/07/20 10:00 10:00 05:15 Creatine Kinase < 20 L Troponin I < 0.012 NT-Pro-B Natriuret Pep 33310 H 66911 H Impressions: Head CT 12/27/19 09:25 IMPRESSION: CHRONIC CHANGES OF ATROPHY AND MICROVASCULAR ISCHEMIA. NO ACUTE PROCESS. EVIDENCE OF ACUTE STROKE: NO. Cervical Spine CT 12/27/19 09:27 IMPRESSION: CHRONIC DEGENERATIVE CHANGES. NO ACUTE FINDINGS. ENLARGED RIGHT LOBE OF THE THYROID. Chest X-Ray 01/04/20 00:00 IMPRESSION: Similar small amount of left basilar airspace disease. No significant pleural effusion. PICC Line Insertion 01/05/20 00:00 IMPRESSION: SUCCESSFUL PLACEMENT OF A 5 FR DUAL LUMEN 37 CM PICC IN THE RIGHT BRACHIOCEPHALIC VEIN. Assessment & Plan - Diagnosis (1) Toxic metabolic encephalopathy Is this a current diagnosis for this admission?: Yes (2) Acute hypoactive delirium due to multiple etiologies Is this a current diagnosis for this admission?: Yes (3) Acute on chronic systolic CHF (congestive heart failure) Is this a current diagnosis for this admission?: Yes (4) HTN (hypertension) Qualifiers: Hypertension type: essential hypertension Qualified Code(s): I10 - Essential (primary) hypertension Is this a current diagnosis for this admission?: Yes (5) MEHDI (acute kidney injury) Is this a current diagnosis for this admission?: Yes (6) CAD (coronary artery disease) Qualifiers: Coronary Disease-Associated Artery/Lesion type: [place] artery [place] vs. transplanted heart: [place] heart Associated angina: with unstable angina Qualified Code(s): I25.110 - Atherosclerotic heart disease of [place] coronary artery with unstable angina pectoris Is this a current diagnosis for this admission?: Yes (7) Hyperlipidemia Qualifiers: Hyperlipidemia type: unspecified Qualified Code(s): E78.5 - Hyperlipidemia, unspecified Is this a current diagnosis for this admission?: Yes (8) COPD (chronic obstructive pulmonary disease) Qualifiers: COPD type: unspecified COPD Qualified Code(s): J44.9 - Chronic obstructive pulmonary disease, unspecified Is this a current diagnosis for this admission?: Yes (9) Essential tremor Is this a current diagnosis for this admission?: Yes (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 Is this a current diagnosis for this admission?: Yes (11) Anemia due to chronic blood loss Is this a current diagnosis for this admission?: Yes (12) Left lower lobe consolidation Is this a current diagnosis for this admission?: Yes - Time Time Spent with patient: 25-34 minutes Level of Care: IMCU Medications reviewed and adjusted accordingly: Yes Anticipated discharge: Hospice Anticipated DC Timeframe: within 72 hours - Inpatient Certification Based on my medical assessment, after consideration of the patient's comorbidities, presenting symptoms, or acuity I expect that the services needed warrant INPATIENT care.: Yes I certify that my determination is in accordance with my understanding of Medicare's requirements for reasonable and necessary INPATIENT services [42 CFR 412.3e].: Yes Medical Necessity: Significant Comorbidiites Make Outpatient Treatment Too Risky, Need Close Monitoring Due to Risk of Patient Decompensation, Need For Continuous Telemetry Monitoring, Need for IV Antibiotics, Risk of Complication if Not Cared For in Hospital, Risk of Diagnosis Which Will Require Inpatient Eval/Care/Monitoring Post Hospital Care: D/C Hat Finisher Documentation - Plan Summary Plan Summary: Continue current medication management. Overall prognosis is poor. Possible discharge to home hospice in the next 72 hours.
[2020-01-09] MEDS: NORMAL SALINE 1000 ML 1,000 ML IV PRN (16:47)
[2020-01-09] MEDS: SERTRALINE HCL 50 MG TABLET PO SCH (21:21)
[2020-01-09] MEDS: ATORVASTATIN CALCIUM 20 MG TABLET PO SCH (21:21)
[2020-01-10] MEDS: TRAMADOL HCL 50 MG TABLET PO PRN (04:05)
[2020-01-10] MEDS: PANTOPRAZOLE SODIUM 40 MG TABLET.DR PO SCH (05:58)
--- NOTE | 2020-01-10 10:48 | PDOC PROGRESS REPORT ---
Subjective Progress Note for:: 01/10/20 Subjective:: Patient admitted for acute encephalopathy's multiple other comorbidity According to Dr. Celaya patient is a DNR/DNI According to the nursing staff patient's at this point take him to the hospice on Sunday Reason For Visit: TOXIC METABOLIC ENCEPHALOPATHY,ACUTE DELIRIUM, Physical Exam Vital Signs: Temp Pulse Resp BP Pulse Ox 97.7 F 93 20 118/63 100 01/10/20 07:51 01/10/20 07:51 01/10/20 07:51 01/10/20 07:51 01/10/20 07:51 Intake & Output 01/09/20 01/10/20 01/11/20 06:59 06:59 06:59 Intake Total 240 986 Output Total 580 195 Balance -340 791 Weight 86.9 kg 89.3 kg Physical Exam: . not Responding General appearance: PRESENT: no acute distress Eye exam: PRESENT: PERRLA Mouth exam: PRESENT: neck supple Respiratory exam: PRESENT: clear to auscultation ulysses Neurological exam: PRESENT: altered Results Laboratory Results: 01/09/20 09:55 01/09/20 09:55 12/27/19 12/27/19 01/07/20 10:00 10:00 05:15 Creatine Kinase < 20 L Troponin I < 0.012 NT-Pro-B Natriuret Pep 85725 H 62480 H 01/09/20 09:55 Creatine Kinase Troponin I NT-Pro-B Natriuret Pep 00835 H Impressions: Head CT 12/27/19 09:25 IMPRESSION: CHRONIC CHANGES OF ATROPHY AND MICROVASCULAR ISCHEMIA. NO ACUTE PROCESS. EVIDENCE OF ACUTE STROKE: NO. Cervical Spine CT 12/27/19 09:27 IMPRESSION: CHRONIC DEGENERATIVE CHANGES. NO ACUTE FINDINGS. ENLARGED RIGHT LOBE OF THE THYROID. Chest X-Ray 01/04/20 00:00 IMPRESSION: Similar small amount of left basilar airspace disease. No significant pleural effusion. PICC Line Insertion 01/05/20 00:00 IMPRESSION: SUCCESSFUL PLACEMENT OF A 5 FR DUAL LUMEN 37 CM PICC IN THE RIGHT BRACHIOCEPHALIC VEIN. Assessment & Plan - Diagnosis (1) Acute hypoactive delirium due to multiple etiologies Is this a current diagnosis for this admission?: Yes (2) Acute on chronic systolic CHF (congestive heart failure) Is this a current diagnosis for this admission?: Yes (3) Altered mental status Qualifiers: Is this a current diagnosis for this admission?: Yes (4) Chronic systolic heart failure Is this a current diagnosis for this admission?: Yes (5) HTN (hypertension) Qualifiers: Hypertension type: essential hypertension Qualified Code(s): I10 - Essential (primary) hypertension Is this a current diagnosis for this admission?: Yes - Time Time Spent with patient: 15-24 minutes Level of Care: IMCU Anticipated discharge: Hospice Anticipated DC Timeframe: within 48 hours - Plan Summary Plan Summary: Continues to current medication as per discussed with the nursing staff patient is currently a DNI and DNR
[2020-01-10] MEDS: CEFEPIME 1 GM/D5W RTU 1 GM/50 ML RTUPB IV SCH ×2 (11:30→22:00)
[2020-01-10] MEDS: CARVEDILOL 12.5 MG TABLET PO SCH ×2 (14:00→22:00)
[2020-01-10] MEDS: VALSARTAN 160 MG TABLET PO SCH (14:01)
[2020-01-10] MEDS: FUROSEMIDE 20 MG TABLET PO SCH (14:01)
[2020-01-10] MEDS: CARBAMAZEPINE 200 MG TABLET PO SCH ×2 (14:02→22:00)
[2020-01-10] MEDS: PRIMIDONE 50 MG TABLET PO SCH ×2 (14:02→17:39)
[2020-01-10] MEDS: ENOXAPARIN SODIUM INJ 40 MG/0.4 ML DISP.SYRIN SUBCUT SCH (14:03)
[2020-01-10] MEDS: MORPHINE SULFATE 10 MG/ML INJ IV PRN ×2 (14:05→19:58)
[2020-01-10] MEDS: NORMAL SALINE 10 ML SDV (SCHEDULED) IV SCH ×2 (14:06→23:17)
[2020-01-10] MEDS: ATORVASTATIN CALCIUM 20 MG TABLET PO SCH (22:00)
[2020-01-10] MEDS: SERTRALINE HCL 50 MG TABLET PO SCH (22:00)
[2020-01-10 23:55] VITALS: BP 98/35
[2020-01-11] MEDS: MORPHINE SULFATE 10 MG/ML INJ IV PRN (02:15)
--- NOTE | 2020-01-11 10:28 | Death Summary ---
Summary Date : 01/11/20 Time of :: 02:06 Autopsy: No Resuscitation Status: Do Not Resuscitate - Final Diagnosis (1) Acute hypoactive delirium due to multiple etiologies Is this a current diagnosis for this admission?: Yes (2) Acute on chronic systolic CHF (congestive heart failure) Is this a current diagnosis for this admission?: Yes (3) Altered mental status Is this a current diagnosis for this admission?: Yes (4) Chronic systolic heart failure Is this a current diagnosis for this admission?: Yes (5) HTN (hypertension) Is this a current diagnosis for this admission?: Yes Hospital Course:: This is a 84-year-old male with the multiple medical problems as above admitting in the hospital Patient had multiple comorbidity with the end-stage CHF and at this point patient was pretty much put on hospice care Patient's family wants the patient's more comfort care and want to take him hospice early Patient's at this point 01/11/2020
== END 2020-01-11 04:50 | DRG 291 ==
LOC: ER 08:55 → EH 15:58 → 3S 18:23
PROVIDERS: ADMIT Internal Medicine Geriatric Medicine; ATTEND Internal Medicine Geriatric Medicine
PROC: 30233N1 Transfusion of Nonautologous Red Blood Cells into Peripheral Vein, Percutaneous Approach (ICD-10-PCS; principal; 2019-12-29)
PROC: 02HV33Z Insertion of Infusion Device into Superior Vena Cava, Percutaneous Approach (ICD-10-PCS; 2020-01-05)
PROC: B548ZZA Ultrasonography of Superior Vena Cava, Guidance (ICD-10-PCS; 2020-01-05)
DX: I11.0 Hypertensive heart disease with heart failure (principal); J18.9 Pneumonia, unspecified organism; N17.9 Acute kidney failure, unspecified; G93.40 Encephalopathy, unspecified; K92.1 Melena; J44.0 Chronic obstructive pulmonary disease with (acute) lower respiratory infection; I50.23 Acute on chronic systolic (congestive) heart failure; I25.110 Atherosclerotic heart disease of native coronary artery with unstable angina pectoris; J44.9 Chronic obstructive pulmonary disease, unspecified; I25.10 Atherosclerotic heart disease of native coronary artery without angina pectoris; E78.5 Hyperlipidemia, unspecified; H44.9 Unspecified disorder of globe; G25.0 Essential tremor; D50.0 Iron deficiency anemia secondary to blood loss (chronic); D72.829 Elevated white blood cell count, unspecified; Z85.3 Personal history of malignant neoplasm of breast; Z90.12 Acquired absence of left breast and nipple; R41.0 Disorientation, unspecified; I50.84 End stage heart failure; I25.2 Old myocardial infarction; Z66 Do not resuscitate; Z82.49 Family history of ischemic heart disease and other diseases of the circulatory system; Y95 Nosocomial condition
CPT/HCPCS: 36415; 36430; 36573; 70450; 71045; 72125; 80048; 80053; 80307; 81001; 82270; 82272; 82550; 83605; 83880; 84443; 84484; 85025; 85610; 85730; 86850; 86870; 86900; 86901; 86920; 86922; 87040; 87086; 87324; 87449; 93005; 93010; 96360; 99285; J0692; J1642; J1650; J1940; J1956; J2270; J2543; J3370; J3490; J7030; J7040; J7050; J7060; P9016